=== PATIENT | male | born 1980 | race Caucasian/White ===

== ENCOUNTER 2020-12-29 22:15 | Inpatient (IN) | payer OTHER ==
[2020-12-29 22:22] LABS: Glucose,Whole Blood 226 mg/dL (75-99)
[2020-12-29 23:38] LABS: Glucose,Whole Blood 241 mg/dL (75-99)
[2020-12-29] MEDS ORDERED: SODIUM CHLORIDE 0.9% 500 ML 500 ML IV STA (23:46)
[2020-12-29] MEDS ORDERED: SODIUM CHLORIDE 0.9% 1,000 ML IV STA (23:46)
[2020-12-29] MEDS ORDERED: ONDANSETRON 4 MG/2 ML VIAL IVP STA (23:46)
[2020-12-29] MEDS ORDERED: MORPHINE SULFATE 4 MG/ML SYRINGE IV STA (23:46)
[2020-12-29] MEDS ORDERED: THIAMINE 100 MG/ML 2 ML VIAL IM ONE (23:50)
[2020-12-30 00:55] LABS: Basophils # (A) 0.1 k/uL (0-0.2); Basophils % (A) 1 %; Eosinophils # (A) 0.1 k/uL (0-0.7); Eosinophils % (A) 1 %; HCT 48.3 % (39.0-53.0); HGB 16.6 gm/dL (13.0-17.5); Lymphocytes # (A) 1.4 k/uL (1.0-4.8); Lymphocytes % (A) 27 %; MCH 32.5 pg (25.0-35.0); MCHC 34.4 g/dL (31.0-37.0); MCV 94.5 fL (80.0-100.0); Mean Platelet Volume 7.8; Monocytes # (A) 0.3 k/uL (0-1.0); Monocytes % (A) 6 %; Neutrophils # (A) 3.2 k/uL (1.3-7.7); Neutrophils % (A) 62 %; Platelet Count 341 k/uL (150-450); RBC 5.12 m/uL (4.30-5.90); RDW 12.2 % (11.5-15.5); WBC 5.2 k/uL (3.8-10.6)
[2020-12-30 01:12] LABS: Appearance,Urine Clear (Clear); Bilirubin,Urine Negative (Negative); Blood,Urine Small (Negative); Color,Urine Light Yellow; Glucose,Urine (UA) 4+ (Negative); Leukocyte Esterase,Urine Negative (Negative); Mucus,Urine Rare /hpf; Nitrite,Urine Negative (Negative); PH, Urine 5.5 (5.0-8.0); Protein,Urine 2+ (Negative); RBC,Urine 2 /hpf (0-5); Urobilinogen,Urine <2.0 mg/dL (<2.0); WBC,Urine <1 /hpf (0-5)
[2020-12-30 01:14] LABS: ALT 61 U/L (4-49); AST 76 U/L (17-59); African American GFR (CKD) >90 (>60 ml/min/1.73 sqM); Albumin 5.6 g/dL (3.5-5.0); Alkaline Phosphatase 137 U/L (38-126); Anion Gap 32 mmol/L; Blood Urea Nitrogen 10 mg/dL (9-20); Calcium 9.8 mg/dL (8.4-10.2); Chloride 97 mmol/L (98-107); Glucose 246 mg/dL (74-99); Lipase 63 U/L (23-300); Non-African American GFR(CKD) >90 (>60 ml/min/1.73 sqM); Phosphorus 3.6 mg/dL (2.5-4.5); Potassium 4.7 mmol/L (3.5-5.1); Sodium 136 mmol/L (137-145); Total Bilirubin 1.8 mg/dL (0.2-1.3); Total Protein 8.4 g/dL (6.3-8.2)
[2020-12-30 01:19] LABS: Carbon Dioxide 7 mmol/L (22-30)
[2020-12-30 01:41] LABS: Ketones,Urine 4+ (Negative)
[2020-12-30] MEDS ORDERED: SODIUM CHLORIDE 0.9% 1,000 ML IV ONE (01:41)
[2020-12-30] MEDS ORDERED: Magnesium Replacement Protocol 1 EACH MISC MISCELLANE PRN (01:41)
[2020-12-30] MEDS ORDERED: Potassium Replacement Protocol 1 EACH MISC MISCELLANE PRN (01:41)
[2020-12-30] MEDS ORDERED: INSULIN REGULAR 100 UNIT in SODIUM CHLORIDE 0.9% 100 ML IV SCH ×2 (02:00→02:30)
[2020-12-30] MEDS ORDERED: NALOXONE 0.4 MG/ML 1 ML VIAL IV PRN (02:03)
[2020-12-30] MEDS ORDERED: ONDANSETRON 4 MG/2 ML VIAL IVP PRN (02:03)
[2020-12-30 02:06] LABS: Glucose,Whole Blood 209 mg/dL (75-99)
[2020-12-30] MEDS ORDERED: LORazepam 2 MG/ML INJ IV PRN ×2 (02:06)
[2020-12-30] MEDS ORDERED: FAMOTIDINE 20 MG/2 ML VIAL IV STA (02:09)
--- NOTE | 2020-12-30 02:09 | ED ---
General Adult HPI - General Chief complaint: Abdominal Pain Stated complaint: DKA,Pancreatitis Time Seen by Provider: 12/29/20 23:30 Source: patient Mode of arrival: ambulatory Limitations: no limitations - History of Present Illness Initial comments: 40 year-old male patient chronic alcohol abuse, history of diabetes, chronic pancreatitis presents to the emergency department today for evaluation of upper abdominal pain and vomiting. States the pain is sharp, does not radiate, located in the midepigastric region. Reports several episodes of vomiting. Unable to keep down food or fluids. Last alcohol was 6-7 hours ago. States he has been binging for 2 weeks. Has not taken any insulin in 2 weeks. States he has been in DKA before and feels that he is again. Patient denies any recent rash, fever, chills, cough, shortness of breath, chest pain, diarrhea, constipation, back pain, numbness, tingling, dizziness, weakness, hematuria, dysuria, urinary urgency, urinary frequency, headache, visual changes, or any other complaints. - Related Data Allergies Allergy/AdvReac Type Severity Reaction Status Date / Time No Known Allergies Allergy Verified 12/29/20 22:19 Review of Systems ROS Statement: Those systems with pertinent positive or pertinent negative responses have been documented in the HPI. ROS Other: All systems not noted in ROS Statement are negative. Past Medical History Past Medical History: Diabetes Mellitus Additional Past Medical History / Comment(s): DKA, pancreatitis, cyst in pancrease History of Any Multi-Drug Resistant Organisms: None Reported Past Surgical History: No Surgical Hx Reported Past Psychological History: Anxiety Smoking Status: Current every day smoker Past Alcohol Use History: Daily Past Drug Use History: None Reported General Exam Limitations: no limitations General appearance: alert, in no apparent distress ENT exam: Present: normal exam, normal oropharynx, mucous membranes moist Respiratory exam: Present: normal lung sounds bilaterally. Absent: respiratory distress, wheezes, rales, rhonchi, stridor Cardiovascular Exam: Present: normal rhythm, tachycardia, normal heart sounds. Absent: systolic murmur, diastolic murmur, rubs, gallop, clicks GI/Abdominal exam: Present: soft, tenderness (midepigastric), normal bowel sounds. Absent: distended, guarding, rebound, rigid Neurological exam: Present: alert, oriented X3, CN II-XII intact Psychiatric exam: Present: normal affect, normal mood Skin exam: Present: warm, dry, intact, normal color. Absent: rash Course Vital Signs 12/29/20 12/30/20 12/30/20 22:20 00:45 03:05 Temperature 98.1 F Pulse Rate 117 H 110 H 101 H Respiratory 18 18 18 Rate Blood Pressure 139/86 128/93 133/83 O2 Sat by Pulse 98 97 99 Oximetry Medical Decision Making - Medical Decision Making 40-year-old male patient with past medical history significant for alcohol abuse, diabetes, chronic pancreatitis presents to the emergency department today reporting abdominal pain and vomiting started today. Patient states that he has not taken insulin in the last 2 weeks. Physical examination did reveal midepigastric tenderness. Labs reviewed and revealed normal white blood cell count. Sodium is 136, chloride 97, carbon dioxide 7, anion gap is 32. Blood sugar is 246. His liver enzymes are mildly elevated, bilirubin is 1.8. Urine shows 2+ protein, 4+ glucose, 4+ ketones. Patient is given normal saline fluid bolus. We will start D5 4 5 infusion per protocol. We started on insulin drip. He'll be admitted to the hospital for further evaluation and monitoring. Dr. Crandall requests placement in the ICU. Patient is agreeable with this plan. Case discussed with my attending Dr. Burgess. - Lab Data Result diagrams: 12/30/20 00:25 12/30/20 00:25 Lab Results 12/29/20 12/29/20 12/30/20 Range/Units 22:20 23:37 00:25 WBC 5.2 (3.8-10.6) k/uL RBC 5.12 (4.30-5.90) m/uL Hgb 16.6 (13.0-17.5) gm/dL Hct 48.3 (39.0-53.0) % MCV 94.5 (80.0-100.0) fL MCH 32.5 (25.0-35.0) pg MCHC 34.4 (31.0-37.0) g/dL RDW 12.2 (11.5-15.5) % Plt Count 341 (150-450) k/uL MPV 7.8 Neutrophils % 62 % Lymphocytes % 27 % Monocytes % 6 % Eosinophils % 1 % Basophils % 1 % Neutrophils # 3.2 (1.3-7.7) k/uL Lymphocytes # 1.4 (1.0-4.8) k/uL Monocytes # 0.3 (0-1.0) k/uL Eosinophils # 0.1 (0-0.7) k/uL Basophils # 0.1 (0-0.2) k/uL Sodium (137-145) mmol/L Potassium (3.5-5.1) mmol/L Chloride (98-107) mmol/L Carbon Dioxide (22-30) mmol/L Anion Gap mmol/L BUN (9-20) mg/dL Creatinine (0.66-1.25) mg/dL Est GFR (CKD-EPI)AfAm (>60 ml/min/1.73 sqM) Est GFR (CKD-EPI)NonAf (>60 ml/min/1.73 sqM) Glucose (74-99) mg/dL POC Glucose (mg/dL) 226 H 241 H (75-99) mg/dL POC Glu Social Work Nurse Katherine Farfan Pauline Plasma Lactic Acid Bruno (0.7-2.0) mmol/L Calcium (8.4-10.2) mg/dL Phosphorus (2.5-4.5) mg/dL Total Bilirubin (0.2-1.3) mg/dL AST (17-59) U/L ALT (4-49) U/L Alkaline Phosphatase (38-126) U/L Total Protein (6.3-8.2) g/dL Albumin (3.5-5.0) g/dL Lipase (23-300) U/L Urine Color Urine Appearance (Clear) Urine pH (5.0-8.0) Ur Specific [place] (1.001-1.035) Urine Protein (Negative) Urine Glucose (UA) (Negative) Urine Ketones (Negative) Urine Blood (Negative) Urine Nitrite (Negative) Urine Bilirubin (Negative) Urine Urobilinogen (<2.0) mg/dL Ur Leukocyte Esterase (Negative) Urine RBC (0-5) /hpf Urine WBC (0-5) /hpf Urine Mucus (None) /hpf Serum Alcohol mg/dL Acetone, Qual (Negative) 12/30/20 12/30/20 12/30/20 Range/Units 00:25 00:25 00:25 WBC (3.8-10.6) k/uL RBC (4.30-5.90) m/uL Hgb (13.0-17.5) gm/dL Hct (39.0-53.0) % MCV (80.0-100.0) fL MCH (25.0-35.0) pg MCHC (31.0-37.0) g/dL RDW (11.5-15.5) % Plt Count (150-450) k/uL MPV Neutrophils % % Lymphocytes % % Monocytes % % Eosinophils % % Basophils % % Neutrophils # (1.3-7.7) k/uL Lymphocytes # (1.0-4.8) k/uL Monocytes # (0-1.0) k/uL Eosinophils # (0-0.7) k/uL Basophils # (0-0.2) k/uL Sodium 136 L (137-145) mmol/L Potassium 4.7 (3.5-5.1) mmol/L Chloride 97 L (98-107) mmol/L Carbon Dioxide 7 L* (22-30) mmol/L Anion Gap 32 mmol/L BUN 10 (9-20) mg/dL Creatinine 0.91 (0.66-1.25) mg/dL Est GFR (CKD-EPI)AfAm >90 (>60 ml/min/1.73 sqM) Est GFR (CKD-EPI)NonAf >90 (>60 ml/min/1.73 sqM) Glucose 246 H (74-99) mg/dL POC Glucose (mg/dL) (75-99) mg/dL POC Glu Social Work Nurse ID Plasma Lactic Acid Bruno 4.6 H* (0.7-2.0) mmol/L Calcium 9.8 (8.4-10.2) mg/dL Phosphorus 3.6 (2.5-4.5) mg/dL Total Bilirubin 1.8 H (0.2-1.3) mg/dL AST 76 H (17-59) U/L ALT 61 H (4-49) U/L Alkaline Phosphatase 137 H (38-126) U/L Total Protein 8.4 H (6.3-8.2) g/dL Albumin 5.6 H (3.5-5.0) g/dL Lipase 63 (23-300) U/L Urine Color Light Yellow Urine Appearance Clear (Clear) Urine pH 5.5 (5.0-8.0) Ur Specific [place] 1.020 (1.001-1.035) Urine Protein 2+ H (Negative) Urine Glucose (UA) 4+ H (Negative) Urine Ketones 4+ H (Negative) Urine Blood Small H (Negative) Urine Nitrite Negative (Negative) Urine Bilirubin Negative (Negative) Urine Urobilinogen <2.0 (<2.0) mg/dL Ur Leukocyte Esterase Negative (Negative) Urine RBC 2 (0-5) /hpf Urine WBC <1 (0-5) /hpf Urine Mucus Rare H (None) /hpf Serum Alcohol mg/dL Acetone, Qual Positive (Negative) 12/30/20 Range/Units 01:33 WBC (3.8-10.6) k/uL RBC (4.30-5.90) m/uL Hgb (13.0-17.5) gm/dL Hct (39.0-53.0) % MCV (80.0-100.0) fL MCH (25.0-35.0) pg MCHC (31.0-37.0) g/dL RDW (11.5-15.5) % Plt Count (150-450) k/uL MPV Neutrophils % % Lymphocytes % % Monocytes % % Eosinophils % % Basophils % % Neutrophils # (1.3-7.7) k/uL Lymphocytes # (1.0-4.8) k/uL Monocytes # (0-1.0) k/uL Eosinophils # (0-0.7) k/uL Basophils # (0-0.2) k/uL Sodium (137-145) mmol/L Potassium (3.5-5.1) mmol/L Chloride (98-107) mmol/L Carbon Dioxide (22-30) mmol/L Anion Gap mmol/L BUN (9-20) mg/dL Creatinine (0.66-1.25) mg/dL Est GFR (CKD-EPI)AfAm (>60 ml/min/1.73 sqM) Est GFR (CKD-EPI)NonAf (>60 ml/min/1.73 sqM) Glucose (74-99) mg/dL POC Glucose (mg/dL) (75-99) mg/dL POC Glu Social Work Nurse ID Plasma Lactic Acid Bruno (0.7-2.0) mmol/L Calcium (8.4-10.2) mg/dL Phosphorus (2.5-4.5) mg/dL Total Bilirubin (0.2-1.3) mg/dL AST (17-59) U/L ALT (4-49) U/L Alkaline Phosphatase (38-126) U/L Total Protein (6.3-8.2) g/dL Albumin (3.5-5.0) g/dL Lipase (23-300) U/L Urine Color Urine Appearance (Clear) Urine pH (5.0-8.0) Ur Specific [place] (1.001-1.035) Urine Protein (Negative) Urine Glucose (UA) (Negative) Urine Ketones (Negative) Urine Blood (Negative) Urine Nitrite (Negative) Urine Bilirubin (Negative) Urine Urobilinogen (<2.0) mg/dL Ur Leukocyte Esterase (Negative) Urine RBC (0-5) /hpf Urine WBC (0-5) /hpf Urine Mucus (None) /hpf Serum Alcohol 64 mg/dL Acetone, Qual (Negative) - EKG Data -: EKG Interpreted by Me EKG Comments: EKG obtained at 02 100 shows sinus rhythm with a short [place] interval. Ventricular rate is 100, [place] interval is 110, QRS duration 94, QT 372, QTc 479. No evidence of ST elevation or depression. Disposition Clinical Impression: DKA (diabetic ketoacidoses), Abdominal pain Disposition: ADMITTED IP TO THIS [facility] Condition: Serious Decision to Admit Reason: Admit from EC
[2020-12-30] MEDS: D5-0.45% NACL WITH KCL 20MEQ/L 1,000 ML IV SCH ×4 (02:47→23:38)
[2020-12-30 04:00] LABS: Glucose,Whole Blood 227 mg/dL (75-99)
[2020-12-30] MEDS: MORPHINE SULFATE 4 MG/ML SYRINGE IV PRN ×3 (04:44→16:20)
--- NOTE | 2020-12-30 04:54 | P.HPIM ---
History of Present Illness H&P Date: 12/30/20 Patient is a 40-year-old male with a PMH of diabetes (mixed type), chronic pancreatitis, and EtOH abuse who presented to the emergency room with complaints of abdominal pain, nausea, and vomiting. The patient notes that his pain started earlier today, is sharp in nature, epigastric, 7 out of 10 at maximal intensity, worsened with food, with no clear alleviating features. Reported that the pain had improved to a 3 out of 10 at the time of the interview. The patient reports that he had started to drink heavily over the past few weeks, drinking half a gallon of vodka daily. His last drink was 6 hours prior to coming into the emergency room. He reports he has been admitted to multiple hospitals in the past for his alcohol intoxication and has a history of delirium tremens requiring ICU stay with Ativan infusions. He also reports a history of DKA's. He reported feeling somewhat better since coming into the emergency room. He denied chest pain, shortness of breath, diarrhea, fever, chills, cough, headaches, or dizziness. He underwent an extensive evaluation in the emergency room with EKG showing sinus rhythm with short MT [address]/T-wave changes noted as reviewed by me. Laboratory evaluation was remarkable for a sodium 136, chloride 97, CO2 17, anion gap 32, glucose 246, lactic acid 4.6, total bilirubin 1.8, AST 76, ALT 61, alk phos 137, alcohol level 64, urine keto isidro 4+, with serum acetone positive. Patient was started on insulin infusion along with IV fluids and is being admitted for management of DKA. Review of Systems Pertinent positives and negatives as discussed in HPI, a complete review of systems was performed and all other systems are negative. Past Medical History Past Medical History: Diabetes Mellitus Additional Past Medical History / Comment(s): DKA, pancreatitis, cyst in pancrease History of Any Multi-Drug Resistant Organisms: None Reported Past Surgical History: No Surgical Hx Reported Past Psychological History: Anxiety Smoking Status: Current every day smoker Past Alcohol Use History: Daily Past Drug Use History: None Reported Medications and Allergies Allergies Allergy/AdvReac Type Severity Reaction Status Date / Time No Known Allergies Allergy Verified 12/29/20 22:19 Physical Exam Vitals: Vital Signs Temp Pulse Resp BP Pulse Ox 12/30/20 03:05 101 H 18 133/83 99 12/30/20 00:45 110 H 18 128/93 97 12/29/20 22:20 98.1 F 117 H 18 139/86 98 Intake and Output 12/29/20 12/29/20 12/30/20 14:59 22:59 06:59 Other: Weight 77.111 kg General: non toxic, no distress, appears at stated age, normal weight Derm: no unusual rashes/lesions no unusual ecchymoses, warm, dry Head: atraumatic, normocephalic, symmetric Eyes: EOMI, no lid lag, anicteric sclera, pupils equal round reactive to light ENT: Nose and ears atraumatic, no thrush, no pharyngeal erythema Neck: No thyromegaly, no cervical lymphadenopathy, trachea midline, supple Mouth: no lip lesion, mucus membranes moist Cardiovascular: S1S2 reg, no murmur, positive posterior tibial pulse bilateral, no edema, capillary refill less than 2 seconds Lungs: CTA bilateral, no rhonchi, no rales , no accessory muscle use Abdominal: soft, epigastric tenderness, no guarding, no appreciable organomegaly, normal bowel sounds Ext: no gross muscle atrophy, muscle strength 5 out of 5 in all 4 extremities grossly, no contractures, Neuro: CN II-XI grossly intact, light touch intact all 4 extremities, finger to nose within normal limits, Psych: Alert, oriented, appropriate affect Results CBC & Chem 7: 12/30/20 00:25 12/30/20 00:25 Labs: Abnormal Lab Results - Last 24 Hours (Table) 12/29/20 12/29/20 12/30/20 Range/Units 22:20 23:37 00:25 Sodium (137-145) mmol/L Chloride (98-107) mmol/L Carbon Dioxide (22-30) mmol/L Glucose (74-99) mg/dL POC Glucose (mg/dL) 226 H 241 H (75-99) mg/dL Plasma Lactic Acid Bruno (0.7-2.0) mmol/L Total Bilirubin (0.2-1.3) mg/dL AST (17-59) U/L ALT (4-49) U/L Alkaline Phosphatase (38-126) U/L Total Protein (6.3-8.2) g/dL Albumin (3.5-5.0) g/dL Urine Protein 2+ H (Negative) Urine Glucose (UA) 4+ H (Negative) Urine Ketones 4+ H (Negative) Urine Blood Small H (Negative) Urine Mucus Rare H (None) /hpf 12/30/20 12/30/20 12/30/20 Range/Units 00:25 00:25 02:03 Sodium 136 L (137-145) mmol/L Chloride 97 L (98-107) mmol/L Carbon Dioxide 7 L* (22-30) mmol/L Glucose 246 H (74-99) mg/dL POC Glucose (mg/dL) 209 H (75-99) mg/dL Plasma Lactic Acid Bruno 4.6 H* (0.7-2.0) mmol/L Total Bilirubin 1.8 H (0.2-1.3) mg/dL AST 76 H (17-59) U/L ALT 61 H (4-49) U/L Alkaline Phosphatase 137 H (38-126) U/L Total Protein 8.4 H (6.3-8.2) g/dL Albumin 5.6 H (3.5-5.0) g/dL Urine Protein (Negative) Urine Glucose (UA) (Negative) Urine Ketones (Negative) Urine Blood (Negative) Urine Mucus (None) /hpf 12/30/20 Range/Units 03:59 Sodium (137-145) mmol/L Chloride (98-107) mmol/L Carbon Dioxide (22-30) mmol/L Glucose (74-99) mg/dL POC Glucose (mg/dL) 227 H (75-99) mg/dL Plasma Lactic Acid Bruno (0.7-2.0) mmol/L Total Bilirubin (0.2-1.3) mg/dL AST (17-59) U/L ALT (4-49) U/L Alkaline Phosphatase (38-126) U/L Total Protein (6.3-8.2) g/dL Albumin (3.5-5.0) g/dL Urine Protein (Negative) Urine Glucose (UA) (Negative) Urine Ketones (Negative) Urine Blood (Negative) Urine Mucus (None) /hpf Assessment and Plan Plan: Diabetic ketoacidosis -Continue with insulin infusion with D5 half and is -Continue to monitor blood glucose every 1-2 hours -Monitor electrolytes every 4 hourly -Nothing by mouth for now Alcohol abuse, impending withdrawal -Continue with thiamine and multivitamin -CIWA protocol -Strongly advised on the importance of cessation Lactic acidosis -Monitor to resolution -Continue with IV fluids DVT prophylaxis -Heparin subq The patient is admitted with an anticipated greater than 2 midnight stay for evaluation of DKA CODE STATUS: Full Code Discussed with: Patient Anticipated discharge date: 2-[address]: Home A total of 40 minutes was spent on the care of this complex patient more than 50% of the time was spent in counseling and care coordination.
[2020-12-30 05:06] LABS: African American GFR (CKD) >90 (>60 ml/min/1.73 sqM); Anion Gap 19 mmol/L; Blood Urea Nitrogen 9 mg/dL (9-20); Carbon Dioxide 13 mmol/L (22-30); Chloride 101 mmol/L (98-107); Glucose 218 mg/dL (74-99); Non-African American GFR(CKD) >90 (>60 ml/min/1.73 sqM); Phosphorus 2.1 mg/dL (2.5-4.5); Potassium 4.5 mmol/L (3.5-5.1); Sodium 133 mmol/L (137-145)
[2020-12-30 05:13] LABS: Glucose,Whole Blood 215 mg/dL (75-99)
[2020-12-30 06:13] LABS: Glucose,Whole Blood 211 mg/dL (75-99)
[2020-12-30 07:28] LABS: Glucose,Whole Blood 207 mg/dL (75-99)
[2020-12-30] MEDS: LORazepam 2 MG/ML INJ IV PRN ×3 (07:58→23:33)
[2020-12-30] MEDS: MULTIVITAMINS, THERA 1 EACH TAB PO SCH (07:58)
[2020-12-30 08:55] LABS: African American GFR (CKD) >90 (>60 ml/min/1.73 sqM); Anion Gap 14 mmol/L; Blood Urea Nitrogen 10 mg/dL (9-20); Carbon Dioxide 18 mmol/L (22-30); Chloride 101 mmol/L (98-107); Glucose 263 mg/dL (74-99); Non-African American GFR(CKD) >90 (>60 ml/min/1.73 sqM); Phosphorus 1.6 mg/dL (2.5-4.5); Potassium 4.7 mmol/L (3.5-5.1); Sodium 133 mmol/L (137-145)
[2020-12-30] MEDS: FAMOTIDINE 20 MG/2 ML VIAL IV SCH (10:11)
[2020-12-30] MEDS: HEPARIN SODIUM,PORCINE/PF 5,000 UNIT/0.5 ML SYRINGE SQ SCH ×2 (10:11→16:18)
--- NOTE | 2020-12-30 10:55 | P.CNPUL ---
History of Present Illness Consult date: 12/30/20 Requesting physician: Laurita Crandall Reason for consult: other (Acute diabetic ketoacidosis) Chief complaint: Abdominal pain and nausea and vomiting History of present illness: This is a 40-year-old white male with history of type 1 diabetes, chronic pancreatitis, alcohol abuse, presented to the ER with 1 day history of abdominal pain and nausea and vomiting. Pain was worse after eating, and no clear alleviating factors. Patient has been very noncompliant with his insulin has been drinking almost half abdominal vodka on a daily basis. He even had a drink just before he came into the ER. Patient had previous history of alcohol withdrawal/delirium tremens requiring ICU stay and Ativan infusions. He also had multiple episodes of DKA in the past. In the ER, patient was noted to have elevated blood sugar, positive ketones, and anion gap metabolic acidosis consistent with acute DKA. Patient was placed on the DKA protocol. He was accepted to be transferred to the ICU, however beds were not available overnight, and patient remained in the ER on the DKA protocol. I evaluated the patient this morning, and his labs are significantly improved. Patient has anion gap of 14, bicarb is 18, blood sugar is 263, remains on 40 units of insulin, and he is on the DKA protocol. He is also on [facility] protocol for alcohol withdrawal. During my evaluation, the patient had no complaints. No shortness of breath no cough no wheezing no nausea no vomiting no abdominal pain. COVID- 19 PCR was negative after evaluating the patient in the ER, I felt that the patient could be downgraded and sent to a regular medical floor. 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 Review of Systems Constitutional: Negative HEENT: Negative Pulmonary: Negative GI: As noted in HPI Genitourinary: Negative Musculoskeletal: Negative Endocrine history of diabetes noncompliant with insulin Hematologic: Negative Neurologic: Negative Psychiatric history of alcohol abuse Skin: Negative Past Medical History Past Medical History: Diabetes Mellitus Additional Past Medical History / Comment(s): DKA, pancreatitis, cyst in pancrease History of Any Multi-Drug Resistant Organisms: None Reported Past Surgical History: No Surgical Hx Reported Past Psychological History: Anxiety Smoking Status: Current every day smoker Past Alcohol Use History: Daily Past Drug Use History: None Reported Medications and Allergies Home Medications Medication Instructions Recorded Confirmed Type ALPRAZolam [Xanax] 1 mg PO HS PRN 12/30/20 12/30/20 History INSULIN LISPRO (HumaLOG) [humaLOG] See Protocol SQ AC-TID 12/30/20 12/30/20 History Insulin Glargine,Hum.rec.anlog 20 unit SQ W/LUNCH 12/30/20 12/30/20 History [Lantus Solostar] Pantoprazole Sodium [Protonix] 40 mg PO DAILY 12/30/20 12/30/20 History traZODone HCL 50 mg PO HS 12/30/20 12/30/20 History Allergies Allergy/AdvReac Type Severity Reaction Status Date / Time No Known Allergies Allergy Verified 12/30/20 07:17 Physical Exam Vitals: Vital Signs Temp Pulse Resp BP Pulse Ox 12/30/20 08:00 105 H 18 124/86 98 12/30/20 05:13 98 16 126/81 98 12/30/20 03:05 101 H 18 133/83 99 12/30/20 00:45 110 H 18 128/93 97 12/29/20 22:20 98.1 F 117 H 18 139/86 98 Intake and Output 12/29/20 12/30/20 12/30/20 22:59 06:59 14:59 Intake Total 23.129 Balance 23.129 Intake: Intake, IV Titration 23.129 Amount Insulin Regular 100 unit 23.129 In Sodium Chloride 0.9% 100 ml @ 3 UNIT/HR 3.03 mls/hr IV .Q24H [facility] Rx#: [id number] Other: Weight 77.111 kg Physical Exam: Revealed 40-year-old white male in no distress. Head: Atraumatic, normocephalic. HEENT:[Neck is supple.] [No neck masses.] [No thyromegaly.] [No JVD.] Chest: [Clear throughout, no crackles, no rhonchi, no wheezes.] Cardiac Exam: [Normal S1 and S2, no S3 gallop, no murmur.] Abdomen: [Soft, nontender, no megaly, no rebound, no guarding, normal bowel sounds.] Extremities: [No clubbing, no edema, no cyanosis.] Neurological Exam: [No focal neurologic deficit.] Alert and oriented 3 focal deficit Psychiatric: Normal mood affect and normal mental status examination. Skin: No rashes. Results - Laboratory Findings CBC and BMP: 12/30/20 00:25 12/30/20 08:03 Abnormal lab findings: Abnormal Labs 12/29/20 12/29/20 12/30/20 22:20 23:37 00:25 Sodium Chloride Carbon Dioxide Creatinine Glucose POC Glucose (mg/dL) 226 H 241 H Plasma Lactic Acid Bruno Phosphorus Total Bilirubin AST ALT Alkaline Phosphatase Total Protein Albumin Urine Protein 2+ H Urine Glucose (UA) 4+ H Urine Ketones 4+ H Urine Blood Small H Urine Mucus Rare H 12/30/20 12/30/20 12/30/20 00:25 00:25 02:03 Sodium 136 L Chloride 97 L Carbon Dioxide 7 L* Creatinine Glucose 246 H POC Glucose (mg/dL) 209 H Plasma Lactic Acid Bruno 4.6 H* Phosphorus Total Bilirubin 1.8 H AST 76 H ALT 61 H Alkaline Phosphatase 137 H Total Protein 8.4 H Albumin 5.6 H Urine Protein Urine Glucose (UA) Urine Ketones Urine Blood Urine Mucus 12/30/20 12/30/20 12/30/20 03:59 04:26 05:11 Sodium 133 L Chloride Carbon Dioxide 13 L Creatinine Glucose 218 H POC Glucose (mg/dL) 227 H 215 H Plasma Lactic Acid Bruno Phosphorus 2.1 L Total Bilirubin AST ALT Alkaline Phosphatase Total Protein Albumin Urine Protein Urine Glucose (UA) Urine Ketones Urine Blood Urine Mucus 12/30/20 12/30/20 12/30/20 06:11 07:27 08:03 Sodium 133 L Chloride Carbon Dioxide 18 L Creatinine 0.65 L Glucose 263 H POC Glucose (mg/dL) 211 H 207 H Plasma Lactic Acid Bruno Phosphorus 1.6 L Total Bilirubin AST ALT Alkaline Phosphatase Total Protein Albumin Urine Protein Urine Glucose (UA) Urine Ketones Urine Blood Urine Mucus Assessment and Plan Assessment: Impression: Acute diabetic ketoacidosis History of colon abuse and previous history of delirium tremens Anion gap metabolic acidosis secondary to DKA. History of pancreatitis related to alcohol abuse. Recommendation: Continue present supportive care measures Continue DKA protocol. Continue automotive sales professional withdrawal protocol. No need to transfer the patient to the ICU at this point. Hence we will arrange for the patient to be transferred to a regular medical floor. Continue GI and DVT prophylaxis. We will continue to follow. Time with Patient: Greater than 30
[2020-12-30 11:19] LABS: Glucose,Whole Blood 187 mg/dL (75-99)
[2020-12-30] MEDS: POTAS-SOD-PHOS 278-164-250 MG 1 EACH PACKET PO SCH ×3 (12:06→23:37)
[2020-12-30 12:44] LABS: Glucose,Whole Blood 156 mg/dL (75-99)
[2020-12-30 14:41] LABS: ALT 75 U/L (4-49); AST 125 U/L (17-59); African American GFR (CKD) >90 (>60 ml/min/1.73 sqM); Albumin 4.3 g/dL (3.5-5.0); Alkaline Phosphatase 92 U/L (38-126); Anion Gap 11 mmol/L; Blood Urea Nitrogen 10 mg/dL (9-20); Calcium 9.5 mg/dL (8.4-10.2); Carbon Dioxide 22 mmol/L (22-30); Chloride 101 mmol/L (98-107); Glucose 215 mg/dL (74-99); Magnesium 1.5 mg/dL (1.6-2.3); Non-African American GFR(CKD) >90 (>60 ml/min/1.73 sqM); Potassium 4.3 mmol/L (3.5-5.1); Sodium 134 mmol/L (137-145); Total Bilirubin 3.3 mg/dL (0.2-1.3); Total Protein 6.4 g/dL (6.3-8.2)
[2020-12-30] MEDS: MAGNESIUM SULFATE-D5W PMX 1 GM in DEXTROSE/WATER 1 100ML.BAG IVPB SCH ×2 (16:04→17:35)
[2020-12-30 16:22] LABS: Glucose,Whole Blood 182 mg/dL (75-99)
[2020-12-30 17:38] LABS: Glucose,Whole Blood 134 mg/dL (75-99)
[2020-12-30] MEDS: THIAMINE 100 MG TAB PO SCH (18:43)
[2020-12-30 18:46] LABS: ALT 84 U/L (4-49); AST 139 U/L (17-59); African American GFR (CKD) >90 (>60 ml/min/1.73 sqM); Albumin 4.5 g/dL (3.5-5.0); Alkaline Phosphatase 100 U/L (38-126); Anion Gap 11 mmol/L; Blood Urea Nitrogen 10 mg/dL (9-20); Calcium 9.8 mg/dL (8.4-10.2); Carbon Dioxide 24 mmol/L (22-30); Chloride 100 mmol/L (98-107); Glucose 195 mg/dL (74-99); Non-African American GFR(CKD) >90 (>60 ml/min/1.73 sqM); Potassium 4.1 mmol/L (3.5-5.1); Sodium 135 mmol/L (137-145); Total Bilirubin 3.9 mg/dL (0.2-1.3); Total Protein 6.7 g/dL (6.3-8.2)
[2020-12-30 18:58] LABS: Glucose,Whole Blood 255 mg/dL (75-99)
[2020-12-30 20:17] LABS: Glucose,Whole Blood 369 mg/dL (75-99)
[2020-12-30 21:33] LABS: Glucose,Whole Blood 364 mg/dL (75-99)
[2020-12-30 22:32] LABS: Glucose,Whole Blood 298 mg/dL (75-99)
[2020-12-30 23:31] LABS: Glucose,Whole Blood 196 mg/dL (75-99)
[2020-12-30] MEDS: SODIUM CHLORIDE 0.9% 1,000 ML IV SCH (23:35)
[2020-12-31] MEDS: HEPARIN SODIUM,PORCINE/PF 5,000 UNIT/0.5 ML SYRINGE SQ SCH ×4 (00:24→23:06)
[2020-12-31] MEDS: INSULIN DETEMIR (LEVEMIR) 100 UNIT/ML SYR SQ SCH ×2 (00:24→20:50)
[2020-12-31] MEDS: MORPHINE SULFATE 4 MG/ML SYRINGE IV PRN ×4 (00:28→20:46)
[2020-12-31 07:01] LABS: Glucose,Whole Blood 244 mg/dL (75-99)
[2020-12-31] MEDS: LORazepam 2 MG/ML INJ IV PRN ×4 (07:24→22:57)
[2020-12-31] MEDS: MULTIVITAMINS, THERA 1 EACH TAB PO SCH (07:26)
[2020-12-31] MEDS: INSULIN ASPART (NovoLOG) 100 UNIT/ML VIAL SQ SCH ×4 (07:26→20:50)
[2020-12-31] MEDS: POTAS-SOD-PHOS 278-164-250 MG 1 EACH PACKET PO SCH ×3 (07:26→20:50)
[2020-12-31] MEDS: FAMOTIDINE 20 MG/2 ML VIAL IV SCH (07:26)
[2020-12-31] MEDS: THIAMINE 100 MG TAB PO SCH ×2 (07:26→17:01)
[2020-12-31] MEDS: SODIUM CHLORIDE 0.9% 1,000 ML IV SCH ×3 (07:32→23:07)
[2020-12-31 07:49] LABS: African American GFR (CKD) >90 (>60 ml/min/1.73 sqM); Anion Gap 10 mmol/L; Blood Urea Nitrogen 9 mg/dL (9-20); Calcium 9.1 mg/dL (8.4-10.2); Carbon Dioxide 27 mmol/L (22-30); Chloride 99 mmol/L (98-107); Glucose 266 mg/dL (74-99); Non-African American GFR(CKD) >90 (>60 ml/min/1.73 sqM); Potassium 4.2 mmol/L (3.5-5.1); Sodium 136 mmol/L (137-145)
[2020-12-31 08:53] LABS: Basophils % (A) 1 %; Eosinophils # (A) 0.1 k/uL (0-0.7); Eosinophils % (A) 2 %; HCT 39.7 % (39.0-53.0); Lymphocytes # (A) 0.8 k/uL (1.0-4.8); Lymphocytes % (A) 23 %; MCH 32.7 pg (25.0-35.0); MCHC 34.2 g/dL (31.0-37.0); MCV 95.6 fL (80.0-100.0); Mean Platelet Volume 8.3; Monocytes # (A) 0.2 k/uL (0-1.0); Monocytes % (A) 5 %; Neutrophils # (A) 2.4 k/uL (1.3-7.7); Neutrophils % (A) 68 %; Platelet Count 193 k/uL (150-450); RBC 4.16 m/uL (4.30-5.90); RDW 12.3 % (11.5-15.5); WBC 3.6 k/uL (3.8-10.6)
[2020-12-31 08:55] LABS: HGB 13.6 gm/dL (13.0-17.5)
[2020-12-31 12:04] LABS: Glucose,Whole Blood 268 mg/dL (75-99)
[2020-12-31 13:09] VITALS: BMI 24.3
--- NOTE | 2020-12-31 14:12 | P.PN ---
Subjective Progress Note Date: 12/31/20 Principal diagnosis: abdominal pain and nausea and vomiting This is a 40-year-old white male with history of type 1 diabetes, chronic pancreatitis, alcohol abuse, presented to the ER with 1 day history of abdominal pain and nausea and vomiting. Pain was worse after eating, and no clear alleviating factors. Patient has been very noncompliant with his insulin has been drinking almost half abdominal vodka on a daily basis. He even had a drink just before he came into the ER. Patient had previous history of alcohol withdrawal/delirium tremens requiring ICU stay and Ativan infusions. He also had multiple episodes of DKA in the past. In the ER, patient was noted to have elevated blood sugar, positive ketones, and anion gap metabolic acidosis consistent with acute DKA. Patient was placed on the DKA protocol. He was accepted to be transferred to the ICU, however beds were not available overnight, and patient remained in the ER on the DKA protocol. I evaluated the patient this morning, and his labs are significantly improved. Patient has anion gap of 14, bicarb is 18, blood sugar is 263, remains on 40 units of insulin, and he is on the DKA protocol. He is also on [facility] protocol for alcohol withdrawal. During my evaluation, the patient had no complaints. No shortness of breath no cough no wheezing no nausea no vomiting no abdominal pain. COVID- 19 PCR was negative after evaluating the patient in the ER, I felt that the patient could be downgraded and sent to a regular medical floor. And continue the DKA protocol, and continued [employer] consultant withdrawal protocol. On 12/31/2020 patient is seen in follow-up on medical surgical floor, he is awake and alert, in no acute distress, he is ambulating about the room, appears to be no acute distress, breathing comfortably, vital signs are stable, he is on room air, pulse ox is 97%, no fever or chills, blood pressure is been stable, no specific complaints, no tremors, no confusion, no agitation, no headaches. Tolerating oral intake, no nausea or vomiting, today's labs have been reviewed, his anion gap is at 10, CO2 is 27, sodium is 136, BUN is 9 creatinine 0.6, his phosphorus level is 2.0, white blood cell count of 3.6, hemoglobin 13.6, patient has been transitioned to insulin injections and basal insulin in the form of Levemir at 20 units at bedtime. Objective - Vital Signs Vital signs: Vital Signs Temp 98.5 F 12/31/20 14:00 Pulse 98 12/31/20 14:00 Resp 16 12/31/20 14:00 BP 137/80 12/31/20 14:00 Pulse Ox 97 12/31/20 14:00 Intake & Output 12/30/20 12/31/20 12/31/20 18:59 06:59 18:59 Intake Total 49.339 5.202 Balance 49.339 5.202 Weight 77.111 kg 77.111 kg Intake: Intake, IV Titration 49.339 5.202 Amount Insulin Regular 100 unit 49.339 5.202 In Sodium Chloride 0.9% 100 ml @ 3 UNIT/HR 3.03 mls/hr IV .Q24H [facility] Rx#: [id number] Other: Voiding Method Toilet # Voids 2 - Exam GENERAL EXAM: Alert, very pleasant, 32-year-old white male, on room air, with a pulse ox of 97% comfortable in no apparent distress. HEAD: Normocephalic/atraumatic. EYES: Normal reaction of pupils, equal size. Conjunctiva pink, sclera white. NOSE: Clear with pink turbinates. THROAT: No erythema or exudates. NECK: No masses, no JVD, no thyroid enlargement, no adenopathy. CHEST: No chest wall deformity. Symmetrical expansion. LUNGS: Equal air entry with no crackles, wheeze, rhonchi or dullness. CVS: Regular rate and rhythm, normal S1 and S2, no gallops, no murmurs, no rubs ABDOMEN: Soft, nontender. No hepatosplenomegaly, normal bowel sounds, no guarding or rigidity. EXTREMITIES: No clubbing, no edema, no cyanosis, 2+ pulses and upper and lower extremities. MUSCULOSKELETAL: Muscle strength and tone normal. SPINE: No scoliosis or deformity SKIN: No rashes CENTRAL NERVOUS SYSTEM: Alert and oriented -3. No focal deficits, tone is normal in all 4 extremities. PSYCHIATRIC: Alert and oriented -3. Appropriate affect. Intact judgment and insight. - Labs CBC & Chem 7: 12/31/20 05:37 12/31/20 05:37 Labs: Abnormal Lab Results - Last 24 Hours (Table) 12/30/20 12/30/2012/30/21 Range/Units 14:07 16:20 17:37 WBC (3.8-10.6) k/uL RBC (4.30-5.90) m/uL Lymphocytes # (1.0-4.8) k/uL Sodium 134 L (137-145) mmol/L Creatinine 0.58 L (0.66-1.25) mg/dL Glucose 215 H (74-99) mg/dL POC Glucose (mg/dL) 182 H 134 H (75-99) mg/dL Phosphorus (2.5-4.5) mg/dL Magnesium 1.5 L (1.6-2.3) mg/dL Total Bilirubin 3.3 H (0.2-1.3) mg/dL AST 125 H (17-59) U/L ALT 75 H (4-49) U/L 12/30/20 12/30/20 12/30/20 Range/Units 17:59 18:57 20:11 WBC (3.8-10.6) k/uL RBC (4.30-5.90) m/uL Lymphocytes # (1.0-4.8) k/uL Sodium 135 L (137-145) mmol/L Creatinine 0.55 L (0.66-1.25) mg/dL Glucose 195 H (74-99) mg/dL POC Glucose (mg/dL) 255 H 369 H (75-99) mg/dL Phosphorus (2.5-4.5) mg/dL Magnesium (1.6-2.3) mg/dL Total Bilirubin 3.9 H (0.2-1.3) mg/dL AST 139 H (17-59) U/L ALT 84 H (4-49) U/L 12/30/20 12/30/20 12/30/20 Range/Units 21:22 22:30 23:28 WBC (3.8-10.6) k/uL RBC (4.30-5.90) m/uL Lymphocytes # (1.0-4.8) k/uL Sodium (137-145) mmol/L Creatinine (0.66-1.25) mg/dL Glucose (74-99) mg/dL POC Glucose (mg/dL) 364 H 298 H 196 H (75-99) mg/dL Phosphorus (2.5-4.5) mg/dL Magnesium (1.6-2.3) mg/dL Total Bilirubin (0.2-1.3) mg/dL AST (17-59) U/L ALT (4-49) U/L 12/31/20 12/31/20 12/31/20 Range/Units 05:37 05:37 06:58 WBC 3.6 L (3.8-10.6) k/uL RBC 4.16 L (4.30-5.90) m/uL Lymphocytes # 0.8 L (1.0-4.8) k/uL Sodium 136 L (137-145) mmol/L Creatinine (0.66-1.25) mg/dL Glucose 266 H (74-99) mg/dL POC Glucose (mg/dL) 244 H (75-99) mg/dL Phosphorus 2.0 L (2.5-4.5) mg/dL Magnesium (1.6-2.3) mg/dL Total Bilirubin (0.2-1.3) mg/dL AST (17-59) U/L ALT (4-49) U/L 12/31/20 Range/Units 12:02 WBC (3.8-10.6) k/uL RBC (4.30-5.90) m/uL Lymphocytes # (1.0-4.8) k/uL Sodium (137-145) mmol/L Creatinine (0.66-1.25) mg/dL Glucose (74-99) mg/dL POC Glucose (mg/dL) 268 H (75-99) mg/dL Phosphorus (2.5-4.5) mg/dL Magnesium (1.6-2.3) mg/dL Total Bilirubin (0.2-1.3) mg/dL AST (17-59) U/L ALT (4-49) U/L Assessment and Plan Plan: Assessment: #1. Acute diabetic ketoacidosis #2. Acute anion-gap Metabolic acidosis related to the above, improved and resolved #3. History of pancreatitis related to alcohol abuse #4. Daily alcohol use, and patient is on CIWA protocol Plan: Patient is doing well Stable Has been transitioned to subcutaneous injections of NovoLog and basal insulin Tolerating oral intake Remains on CIWA scale No agitation no confusion, no headaches no tremors or diaphoresis Signs are stable Pulmonary service will sign off and follow on as-needed basis I performed a history & physical examination of the patient and discussed their management with my nurse practitioner, Laura Jarrell. I reviewed the nurse practitioner's note and agree with the documented findings and plan of care. Lung sounds are positive for diminished breath sounds. The findings and the impression was discussed with the patient. I attest to the documentation by the nurse practitioner. Time with Patient: Less than 30
--- NOTE | 2020-12-31 16:08 | P.PN ---
Subjective Progress Note Date: 12/31/20 Principal diagnosis: Abdominal pain Feeling better but still having 6/10 abdominal pain. No fevers. No nausea or vomiting. Objective - Vital Signs Vital signs: Vital Signs Temp 98.5 F 12/31/20 14:00 Pulse 98 12/31/20 14:00 Resp 16 12/31/20 14:00 BP 137/80 12/31/20 14:00 Pulse Ox 97 12/31/20 14:00 Intake & Output 12/30/20 12/31/20 12/31/20 18:59 06:59 18:59 Intake Total 49.339 5.202 Balance 49.339 5.202 Weight 77.111 kg 77.111 kg Intake: Intake, IV Titration 49.339 5.202 Amount Insulin Regular 100 unit 49.339 5.202 In Sodium Chloride 0.9% 100 ml @ 3 UNIT/HR 3.03 mls/hr IV .Q24H [facility] Rx#: [id number] Other: Voiding Method Toilet # Voids 2 - Exam Constitutional: No acute distress, conversant, pleasant Eyes:Anicteric sclerae, moist conjunctiva, no lid-lag, PERRLA, ENMT: Oropharynx clear, no erythema, exudates Neck: Supple, FROM, no masses, or JVD, No carotid bruits, No thyromegaly Lungs: Clear to auscultation, Clear to percussion, Normal respiratory effort, no accessory muscle use Cardiovascular: Heart regular in rate and rhythm, No murmurs, gallops, or rubs, No peripheral edema Abdominal: Soft, Nontender, no guarding, rebound or rigidity, Normoactive bowel sounds, No hepatomegaly, No splenomegaly, No palpable mass Skin: Normal temperature, tone, texture, turgor, no induration, No subcutaneous nodules, No rash, lesions, No ulcers Extremities: No digital cyanosis, No clubbing, Pedal pulses intact and symmetrical, Radial pulses intact and symmetrical, No calf tenderness Psychiatric: Alert and oriented to person, place and time, appropriate affect, intact judgement Neuro: Muscles Strength 5/5 in all 4 extremities, Sensation to light touch g rossly present throughout, Cranial nerves II-XII grossly intact, no focal sensory deficits - Labs CBC & Chem 7: 12/31/20 05:37 12/31/20 05:37 Labs: Abnormal Lab Results - Last 24 Hours (Table) 12/30/20 12/30/20 12/30/20 Range/Units 16:20 17:37 17:59 WBC (3.8-10.6) k/uL RBC (4.30-5.90) m/uL Lymphocytes # (1.0-4.8) k/uL Sodium 135 L (137-145) mmol/L Creatinine 0.55 L (0.66-1.25) mg/dL Glucose 195 H (74-99) mg/dL POC Glucose (mg/dL) 182 H 134 H (75-99) mg/dL Phosphorus (2.5-4.5) mg/dL Total Bilirubin 3.9 H (0.2-1.3) mg/dL AST 139 H (17-59) U/L ALT 84 H (4-49) U/L 12/30/20 12/30/20 12/30/20 Range/Units 18:57 20:11 21:22 WBC (3.8-10.6) k/uL RBC (4.30-5.90) m/uL Lymphocytes # (1.0-4.8) k/uL Sodium (137-145) mmol/L Creatinine (0.66-1.25) mg/dL Glucose (74-99) mg/dL POC Glucose (mg/dL) 255 H 369 H 364 H (75-99) mg/dL Phosphorus (2.5-4.5) mg/dL Total Bilirubin (0.2-1.3) mg/dL AST (17-59) U/L ALT (4-49) U/L 12/30/20 12/30/20 12/31/20 Range/Units 22:30 23:28 05:37 WBC (3.8-10.6) k/uL RBC (4.30-5.90) m/uL Lymphocytes # (1.0-4.8) k/uL Sodium 136 L (137-145) mmol/L Creatinine (0.66-1.25) mg/dL Glucose 266 H (74-99) mg/dL POC Glucose (mg/dL) 298 H 196 H (75-99) mg/dL Phosphorus 2.0 L (2.5-4.5) mg/dL Total Bilirubin (0.2-1.3) mg/dL AST (17-59) U/L ALT (4-49) U/L 12/31/20 12/31/20 12/31/20 Range/Units 05:37 06:58 12:02 WBC 3.6 L (3.8-10.6) k/uL RBC 4.16 L (4.30-5.90) m/uL Lymphocytes # 0.8 L (1.0-4.8) k/uL Sodium (137-145) mmol/L Creatinine (0.66-1.25) mg/dL Glucose (74-99) mg/dL POC Glucose (mg/dL) 244 H 268 H (75-99) mg/dL Phosphorus (2.5-4.5) mg/dL Total Bilirubin (0.2-1.3) mg/dL AST (17-59) U/L ALT (4-49) U/L Assessment and Plan Plan: Diabetic ketoacidosis -Patient switched to subcu insulin, sliding scale added -Monitor blood glucose, started on diet Alcohol abuse, impending withdrawal -Continue with thiamine and multivitamin -[facility] protocol -Strongly advised on the importance of cessation Lactic acidosis -Monitor to resolution -Continue with IV fluids DVT prophylaxis -Heparin subq Anticipated discharge date: Tomorrow Anticipated discharge place: Home
[2020-12-31 16:32] LABS: Glucose,Whole Blood 220 mg/dL (75-99)
[2020-12-31 20:23] LABS: Glucose,Whole Blood 339 mg/dL (75-99)
[2021-01-01] MEDS: MORPHINE SULFATE 4 MG/ML SYRINGE IV PRN ×2 (00:59→08:58)
[2021-01-01] MEDS: SODIUM CHLORIDE 0.9% 1,000 ML IV SCH (06:28)
[2021-01-01 06:44] LABS: Glucose,Whole Blood 89 mg/dL (75-99)
[2021-01-01 08:10] VITALS: BP 124/79; PULSE 92; RESP 17; TEMP 98.1
[2021-01-01] MEDS: INSULIN ASPART (NovoLOG) 100 UNIT/ML VIAL SQ SCH ×2 (08:47→12:36)
[2021-01-01] MEDS: THIAMINE 100 MG TAB PO SCH (08:57)
[2021-01-01] MEDS: HEPARIN SODIUM,PORCINE/PF 5,000 UNIT/0.5 ML SYRINGE SQ SCH (08:57)
[2021-01-01] MEDS: MULTIVITAMINS, THERA 1 EACH TAB PO SCH (08:57)
[2021-01-01] MEDS ORDERED: FAMOTIDINE 20 MG TAB PO SCH (09:00)
[2021-01-01] MEDS: POTAS-SOD-PHOS 278-164-250 MG 1 EACH PACKET PO SCH (10:06)
[2021-01-01] MEDS: LORazepam 2 MG/ML INJ IV PRN (10:06)
[2021-01-01 12:09] LABS: Glucose,Whole Blood 252 mg/dL (75-99)
--- NOTE | 2021-01-01 12:10 | P.DS ---
Providers Date of admission: 12/30/20 01:40 Expected date of discharge: 01/01/21 Attending physician: Laurita Crandall MD Consults: 12/30/20 02:19 Consult Physician Routine Consulting Provider: Mac Clark Consult Reason/Comments: Critical care management Do you want consulting provider notified?: Already Contacted [facility] Course: 40-year-old male with a PMH of diabetes (mixed type), chronic pancreatitis, and EtOH abuse who presented to the emergency room with complaints of abdominal pain, nausea, and vomiting. The pain was sharp in nature, epigastric, 7 out of 10 at maximal intensity, worsened with food, with no clear alleviating features. He started to drink heavily over the past few weeks, drinking half a gallon of vodka daily. His last drink was 6 hours prior to coming into the emergency room. He reports he has been admitted to multiple hospitals in the past for his alcohol intoxication and has a history of delirium tremens requiring ICU stay with Ativan infusions. He also had history of DKA's. He denied chest pain, shortness of breath, diarrhea, fever, chills, cough, headaches, or dizziness. In the emergency room EKG showed sinus rhythm with short [place] [address]/T-wave changes. Laboratory evaluation was remarkable for a sodium 136, chloride 97, CO2 17, anion gap 32, glucose 246, lactic acid 4.6, total bilirubin 1.8, AST 76, ALT 61, alk phos 137, alcohol level 64, urine ketones 4+, with serum acetone positive, lipase 63. Patient was started on insulin infusion along with IV fluids and is being admitted for management of DKA. He was subsequently admitted, follow-up BMPs was done and once his anion gap closed the insulin drip was held. He was started on subcu insulin. During the hospitalization he was having signs of alcohol withdrawal and was treated with Ativan IV. The abdominal pain did improve with IV fluids, currently it is at a manageable level. Patient was strongly advised to quit drinking alcohol. He was offered medications to help him with that but he stated that he tried those before and they don't work for him. He is currently doing well, will be discharged home in stable condition. Time for discharge 36 min Patient Condition at Discharge: Serious Plan - Discharge Summary Discharge Rx Participant: No New Discharge Prescriptions: Continue Pantoprazole Sodium [Protonix] 40 mg PO DAILY INSULIN LISPRO (HumaLOG) [humaLOG] See Protocol SQ AC-TID traZODone HCL 50 mg PO HS Insulin Glargine,Hum.rec.anlog [Lantus Solostar] 20 unit SQ W/LUNCH Discontinued ALPRAZolam [Xanax] 1 mg PO HS PRN PRN Reason: Anxiety Discharge Medication List INSULIN LISPRO (HumaLOG) [humaLOG] See Protocol SQ AC-TID 12/30/20 [History] Insulin Glargine,Hum.rec.anlog [Lantus Solostar] 20 unit SQ W/LUNCH 12/30/20 [History] Pantoprazole Sodium [Protonix] 40 mg PO DAILY 12/30/20 [History] traZODone HCL 50 mg PO HS 12/30/20 [History] Follow up Appointment(s)/Referral(s): Nick Candelaria MD [Primary Care Provider] - 1-2 days
== END 2021-01-01 14:11 | disposition home or self-care (01) | DRG 638 ==
LOC: EC 22:15 → 2SICU 12-30 01:40 → 4SSUR 12-30 17:19
PROVIDERS: ADMIT Internal Medicine; ATTEND Internal Medicine
DX: E10.10 Type 1 diabetes mellitus with ketoacidosis without coma (principal); K86.1 Other chronic pancreatitis; F10.239 Alcohol dependence with withdrawal, unspecified; K86.81 Exocrine pancreatic insufficiency; Z79.4 Long term (current) use of insulin; Z20.822 Contact with and (suspected) exposure to COVID-19; T38.3X6A Underdosing of insulin and oral hypoglycemic [antidiabetic] drugs, initial encounter; Z91.128 Patient's intentional underdosing of medication regimen for other reason; Y90.3 Blood alcohol level of 60-79 mg/100 ml; F41.9 Anxiety disorder, unspecified; Z72.0 Tobacco use; Z71.6 Tobacco abuse counseling; Z79.899 Other long term (current) drug therapy
CPT/HCPCS: 36415; 80048; 80051; 80053; 80320; 81001; 82009; 82565; 82947; 83036; 83605; 83690; 83735; 84100; 84520; 85025; 87635; 93005; 96361; 96372; 96374; 96375; 99285

== ENCOUNTER 2021-02-22 23:29 | Emergency (ER) | payer OTHER ==
[2021-02-22] MEDS ORDERED: LORazepam 2 MG/ML INJ IV STA (23:48)
--- NOTE | 2021-02-23 00:20 | ED ---
General Adult HPI - General Chief complaint: Recheck/Abnormal Lab/Rx Stated complaint: Shoulder Pain Time Seen by Provider: 02/22/21 23:40 Source: patient Mode of arrival: ambulatory Limitations: no limitations - History of Present Illness Initial comments: This patient is a 40-year-old man who presents with a concern that he may develop DTs. Patient states that he had been drinking alcohol, between the fifth and half gallon of vodka per day for the past 15 or so days. He stopped drinking about 8 hours ago. He is feeling a little shaky and anxious. He states he has previously had a withdrawal seizure. Patient denies chest pain or dyspnea. No fever or chills. No neurologic complaints. Patient states that his right shoulder has also been clicking and popping. He had injuries to the shoulder years ago. No acute trauma. He does demonstrate good range of motion at history and physical. -: hour(s) Consistency: constant Improves with: none Worsens with: none - Related Data Home Medications Medication Instructions Recorded Confirmed INSULIN LISPRO (HumaLOG) [humaLOG] See Protocol SQ AC-TID 12/30/20 12/30/20 Insulin Glargine,Hum.rec.anlog 20 unit SQ W/LUNCH 12/30/20 12/30/20 [Lantus Solostar] Pantoprazole Sodium [Protonix] 40 mg PO DAILY 12/30/20 12/30/20 traZODone HCL 50 mg PO HS 12/30/20 12/30/20 Previous Rx's Medication Instructions Recorded LORazepam [Ativan] 1 mg PO TID 3 Days #9 tab 02/23/21 Allergies Allergy/AdvReac Type Severity Reaction Status Date / Time No Known Allergies Allergy Verified 02/22/21 23:37 Review of Systems ROS Statement: Those systems with pertinent positive or pertinent negative responses have been documented in the HPI. ROS Other: All systems not noted in ROS Statement are negative. Constitutional: Denies: fever, chills, weakness Eyes: Denies: vision change Respiratory: Denies: cough, dyspnea Cardiovascular: Denies: chest pain, palpitations, edema, syncope Gastrointestinal: Denies: abdominal pain, nausea, vomiting Musculoskeletal: Reports: arthralgia. Denies: back pain Skin: Denies: rash Neurological: Denies: headache, weakness, numbness, paresthesias, confusion Past Medical History Past Medical History: Diabetes Mellitus, GERD/Reflux Additional Past Medical History / Comment(s): IDDM pt states he has been told he is type 1 and told he is type II, neuropathy occasionally in bilateral toes/fingers, ETOH abuse, past DT's when withdrawing from alcohol, chronic pancreatitis History of Any Multi-Drug Resistant Organisms: None Reported Past Surgical History: No Surgical Hx Reported Past Anesthesia/Blood Transfusion Reactions: Unable to Obtain Additional Past Anesthesia/Blood Transfusion Reaction / Comment(s): Pt has never had surgery. Past Psychological History: Anxiety Smoking Status: Current every day smoker, Light tobacco smoker Past Alcohol Use History: Abuse, Daily Past Drug Use History: None Reported - Past Family History Father Family Medical History: Diabetes Mellitus Mother History Unknown: Yes General Exam Limitations: no limitations General appearance: alert, in no apparent distress Head exam: Present: atraumatic, normocephalic Eye exam: Present: normal appearance. Absent: scleral icterus, conjunctival inj ection Neck exam: Present: full ROM. Absent: tenderness Respiratory exam: Present: normal lung sounds bilaterally. Absent: respiratory distress, wheezes, rales, rhonchi, stridor Cardiovascular Exam: Present: regular rate, normal rhythm, normal heart sounds. Absent: systolic murmur, diastolic murmur, rubs, gallop GI/Abdominal exam: Present: soft. Absent: distended, tenderness, guarding, rebound, rigid, mass Extremities exam: Present: normal inspection, full ROM, normal capillary refill. Absent: tenderness Back exam: Present: normal inspection Neurological exam: Present: alert, oriented X3. Absent: motor sensory deficit Skin exam: Present: warm, dry, intact, normal color. Absent: rash Course Vital Signs 02/22/21 02/23/21 23:31 00:45 Temperature 97.9 F Pulse Rate 100 86 Respiratory 20 16 Rate Blood Pressure 145/87 126/92 O2 Sat by Pulse 97 95 Oximetry Medical Decision Making - Lab Data Result diagrams: 02/23/21 00:03 02/23/21 00:03 Lab Results 02/23/21 02/23/21 02/23/21 Range/Units 00:03 00:03 00:19 WBC 2.3 L (3.8-10.6) k/uL RBC 4.58 (4.30-5.90) m/uL Hgb 14.8 (13.0-17.5) gm/dL Hct 44.2 (39.0-53.0) % MCV 96.5 (80.0-100.0) fL MCH 32.3 (25.0-35.0) pg MCHC 33.5 (31.0-37.0) g/dL RDW 13.3 (11.5-15.5) % Plt Count 141 L (150-450) k/uL MPV 8.1 Neutrophils % 42 % Lymphocytes % 41 % Monocytes % 8 % Eosinophils % 4 % Basophils % 2 % Neutrophils # 1.0 L (1.3-7.7) k/uL Lymphocytes # 1.0 (1.0-4.8) k/uL Monocytes # 0.2 (0-1.0) k/uL Eosinophils # 0.1 (0-0.7) k/uL Basophils # 0.0 (0-0.2) k/uL Sodium 135 L (137-145) mmol/L Potassium 4.1 (3.5-5.1) mmol/L Chloride 93 L (98-107) mmol/L Carbon Dioxide 26 (22-30) mmol/L Anion Gap 16 mmol/L BUN 9 (9-20) mg/dL Creatinine 0.73 (0.66-1.25) mg/dL Est GFR (CKD-EPI)AfAm >90 (>60 ml/min/1.73 sqM) Est GFR (CKD-EPI)NonAf >90 (>60 ml/min/1.73 sqM) Glucose 666 H* (74-99) mg/dL POC Glucose (mg/dL) 570 H (75-99) mg/dL POC Glu [employer] ID Gail Kramer Calcium 9.0 (8.4-10.2) mg/dL Serum Alcohol 236 H* mg/dL Acetone, Qual Negative (Negative) 02/23/21 02/23/21 02/23/21 Range/Units 01:19 02:20 03:41 WBC (3.8-10.6) k/uL RBC (4.30-5.90) m/uL Hgb (13.0-17.5) gm/dL Hct (39.0-53.0) % MCV (80.0-100.0) fL MCH (25.0-35.0) pg MCHC (31.0-37.0) g/dL RDW (11.5-15.5) % Plt Count (150-450) k/uL MPV Neutrophils % % Lymphocytes % % Monocytes % % Eosinophils % % Basophils % % Neutrophils # (1.3-7.7) k/uL Lymphocytes # (1.0-4.8) k/uL Monocytes # (0-1.0) k/uL Eosinophils # (0-0.7) k/uL Basophils # (0-0.2) k/uL Sodium (137-145) mmol/L Potassium (3.5-5.1) mmol/L Chloride (98-107) mmol/L Carbon Dioxide (22-30) mmol/L Anion Gap mmol/L BUN (9-20) mg/dL Creatinine (0.66-1.25) mg/dL Est GFR (CKD-EPI)AfAm (>60 ml/min/1.73 sqM) Est GFR (CKD-EPI)NonAf (>60 ml/min/1.73 sqM) Glucose (74-99) mg/dL POC Glucose (mg/dL) 494 H 346 H 185 H (75-99) mg/dL POC Glu [employer] Man Méndez Pauline Myers, Taylor Calcium (8.4-10.2) mg/dL Serum Alcohol mg/dL Acetone, Qual (Negative) Disposition Clinical Impression: Hyperglycemia, Alcohol withdrawal Disposition: HOME SELF-CARE Condition: Good Instructions (If sedation given, give patient instructions): Diabetic Hyperglycemia (ED) Prescriptions: LORazepam [Ativan] 1 mg PO TID 3 Days #9 tab Is patient prescribed a controlled substance at d/c from ED?: No Referrals: Nick Candelaria MD [Primary Care Provider] - 1-2 days Naomy Gutierrez DO [Doctor of Osteopathic Medicine] - 1-2 days
[2021-02-23 00:21] LABS: Glucose,Whole Blood 570 mg/dL (75-99)
[2021-02-23] MEDS ORDERED: SODIUM CHLORIDE 0.9% 2,000 ML IV ONE (00:30)
[2021-02-23] MEDS ORDERED: INSULIN REGULAR 100 UNIT/ML VIAL (IV) SQ STA (00:30)
[2021-02-23 00:37] LABS: Basophils % (A) 2 %; Eosinophils # (A) 0.1 k/uL (0-0.7); Eosinophils % (A) 4 %; HCT 44.2 % (39.0-53.0); HGB 14.8 gm/dL (13.0-17.5); Lymphocytes % (A) 41 %; MCH 32.3 pg (25.0-35.0); MCHC 33.5 g/dL (31.0-37.0); MCV 96.5 fL (80.0-100.0); Mean Platelet Volume 8.1; Monocytes # (A) 0.2 k/uL (0-1.0); Monocytes % (A) 8 %; Neutrophils % (A) 42 %; Platelet Count 141 k/uL (150-450); RBC 4.58 m/uL (4.30-5.90); RDW 13.3 % (11.5-15.5); WBC 2.3 k/uL (3.8-10.6)
[2021-02-23 00:46] LABS: African American GFR (CKD) >90 (>60 ml/min/1.73 sqM); Anion Gap 16 mmol/L; Blood Urea Nitrogen 9 mg/dL (9-20); Carbon Dioxide 26 mmol/L (22-30); Chloride 93 mmol/L (98-107); Non-African American GFR(CKD) >90 (>60 ml/min/1.73 sqM); Potassium 4.1 mmol/L (3.5-5.1); Sodium 135 mmol/L (137-145)
[2021-02-23 01:10] LABS: Alcohol 236 mg/dL
[2021-02-23 01:13] LABS: Glucose 666 mg/dL (74-99)
[2021-02-23 01:20] LABS: Glucose,Whole Blood 494 mg/dL (75-99)
[2021-02-23 02:23] LABS: Glucose,Whole Blood 346 mg/dL (75-99)
[2021-02-23] MEDS ORDERED: LORazepam 2 MG/ML INJ IV STA (02:33)
[2021-02-23] MEDS ORDERED: SODIUM CHLORIDE 0.9% 1,000 ML IV ONE (02:33)
[2021-02-23 03:44] LABS: Glucose,Whole Blood 185 mg/dL (75-99)
[2021-02-23 04:30] VITALS: RESP 18
[2021-02-23 04:36] VITALS: BP 128/88; PULSE 91; TEMP 98.3
== END 2021-02-23 04:09 | disposition home or self-care (01) ==
LOC: EC 23:29
DX: E11.65 Type 2 diabetes mellitus with hyperglycemia (principal); F10.239 Alcohol dependence with withdrawal, unspecified; M25.511 Pain in right shoulder; K21.9 Gastro-esophageal reflux disease without esophagitis; F17.200 Nicotine dependence, unspecified, uncomplicated; Z79.4 Long term (current) use of insulin; Z79.899 Other long term (current) drug therapy; Y90.7 Blood alcohol level of 200-239 mg/100 ml
CPT/HCPCS: 36415; 80048; 82009; 85025; 96374; 96376; 96361; 99283; G0480; J2060; 80320

== ENCOUNTER 2021-04-14 12:37 | Inpatient (IN) | payer OTHER ==
[2021-04-14 13:03] VITALS: TEMP 98.1
[2021-04-14] MEDS ORDERED: SODIUM CHLORIDE 0.9% 1,000 ML IV STA ×2 (14:58→19:32)
[2021-04-14] MEDS ORDERED: LORazepam 2 MG/ML INJ IV PRN ×2 (15:18)
[2021-04-14] MEDS ORDERED: THIAMINE 100 MG/ML 2 ML VIAL IM STA (15:18)
[2021-04-14 15:46] LABS: Basophils # (A) 0.1 k/uL (0-0.2); Basophils % (A) 1 %; Eosinophils # (A) 0.1 k/uL (0-0.7); Eosinophils % (A) 1 %; HCT 34.4 % (39.0-53.0); Lymphocytes # (A) 1.6 k/uL (1.0-4.8); Lymphocytes % (A) 29 %; MCH 29.2 pg (25.0-35.0); MCHC 30.8 g/dL (31.0-37.0); MCV 94.9 fL (80.0-100.0); Mean Platelet Volume 7.7; Monocytes # (A) 0.1 k/uL (0-1.0); Monocytes % (A) 2 %; Neutrophils # (A) 3.4 k/uL (1.3-7.7); Neutrophils % (A) 63 %; Platelet Count 224 k/uL (150-450); RBC 3.63 m/uL (4.30-5.90); RDW 13.3 % (11.5-15.5); WBC 5.4 k/uL (3.8-10.6)
[2021-04-14 15:54] LABS: HGB 10.6 gm/dL (13.0-17.5)
[2021-04-14] MEDS: THIAMINE 100 MG TAB PO SCH (15:58)
[2021-04-14 16:00] LABS: ALT 36 U/L (4-49); AST 42 U/L (17-59); African American GFR (CKD) >90 (>60 ml/min/1.73 sqM); Albumin 5.4 g/dL (3.5-5.0); Alkaline Phosphatase 127 U/L (38-126); Anion Gap 28 mmol/L; Blood Urea Nitrogen 15 mg/dL (9-20); Calcium 10.3 mg/dL (8.4-10.2); Carbon Dioxide 13 mmol/L (22-30); Chloride 96 mmol/L (98-107); Glucose 271 mg/dL (74-99); Lipase 47 U/L (23-300); Magnesium 1.4 mg/dL (1.6-2.3); Non-African American GFR(CKD) >90 (>60 ml/min/1.73 sqM); Potassium 5.2 mmol/L (3.5-5.1); Sodium 137 mmol/L (137-145); Total Bilirubin 1.3 mg/dL (0.2-1.3); Total Protein 7.9 g/dL (6.3-8.2)
[2021-04-14 16:04] LABS: Alcohol 253 mg/dL
[2021-04-14 17:35] LABS: Appearance,Urine Clear (Clear); Bilirubin,Urine Negative (Negative); Blood,Urine Negative (Negative); Color,Urine Light Yellow; Glucose,Urine (UA) 4+ (Negative); Leukocyte Esterase,Urine Negative (Negative); Nitrite,Urine Negative (Negative); PH, Urine 5.5 (5.0-8.0); Protein,Urine 2+ (Negative); RBC,Urine <1 /hpf (0-5); Specific Gravity,Urine 1.035 (1.001-1.035); Squamous Epithelial Cell,Urine <1 /hpf (0-4); Urobilinogen,Urine <2.0 mg/dL (<2.0); WBC,Urine <1 /hpf (0-5)
--- NOTE | 2021-04-14 17:40 | CT ---
EXAMINATION TYPE: CT brain wo con DATE OF EXAM: 04/14/2021 HISTORY: hallucinations during alcohol detox. CT DLP: 1117.2 mGycm. Automated Exposure Control for Dose Reduction was Utilized. TECHNIQUE: CT scan of the head is performed without contrast. COMPARISON: None FINDINGS: There is no acute intracranial hemorrhage, midline shift, or mass effect identified. Brain parenchyma appears normal. The ventricles, sulci, and cisterns are normal in size and configuration. No extra-axial fluid collection. Bones and extracranial soft tissues are intact. The globes are gross ly symmetric. Visualized sinuses and mastoid air cells are clear. IMPRESSION: No acute intracranial hemorrhage, midline shift, or mass effect.
[2021-04-14 17:42] LABS: Ketones,Urine 4+ (Negative)
--- NOTE | 2021-04-14 17:45 | CT ---
EXAMINATION TYPE: CT angio head neck DATE OF EXAM: 04/14/2021 HISTORY: hallucinations during alcohol detox COMPARISON: None CT DLP: 436.9 mGycm. Automated Exposure Control for Dose Reduction was Utilized. TECHNIQUE: CTA scan of the neck is performed with IV Contrast, patient injected with 65cc mL of Isov ue 370, axial images are obtained, coronal and sagittal reformatted images are reviewed. Three-D cordelia nstructed images are created on an independent workstation and reviewed. FINDINGS: Carotid/Vascular Structures: No evidence of occlusion, hemodynamically significant stenosis, aneurysm , or dissection of the common or internal carotid arteries bilaterally. Vertebral basilar system is l eft dominant. Vertebral arteries appear patent. Cervical of [place]: Posterior cerebral vasculature is unremarkable. Internal carotid arteries bifurca te normally into A1 and M1 segments. A2 segments are normal. The anterior communicating artery is pat ent. Hypoplasia or absence of the bilateral posterior communicating arteries. Other: Paraseptal emphysematous changes at the lung apices IMPRESSION: 1. No evidence of large vessel occlusion or hemodynamically significant stenosis of the arteries of t he head or neck. 2. Paraseptal emphysematous change at the lung apices. NASCET criteria was used in interpretation of this exam?
[2021-04-14 19:28] LABS: Glucose,Whole Blood 250 mg/dL (75-99)
[2021-04-14] MEDS ORDERED: CALCIUM GLUCONATE 1 GM in SODIUM CHLORIDE 0.9% 100 ML IVPB ONE (19:32)
--- NOTE | 2021-04-14 19:36 | ED ---
General Adult HPI - General Chief complaint: Alcohol Stated complaint: Alcohol Time Seen by Provider: 04/14/21 14:44 Source: patient, RN notes reviewed, old records reviewed Mode of arrival: ambulatory Limitations: no limitations - History of Present Illness Initial comments: Patient is a 40-year-old male who presents emergency Department complaining of "sparkles in my vision." He states he has a history of chronic alcohol use as well as poorly controlled diabetes, GERD with a history of alcohol withdrawal presents emergency Department complaining of changes in his vision. He also has a history of chronic pancreatitis which is not bothering him at this time. He does endorse drinking over the last 5 days. Denies any hallucinations, tremors. States he last drank this morning, 2 glasses of vodka. He states that his last known well was last night. Since early this morning, he has been having "sparkles in my vision." They're not affected his ability to see. This has not happened before. He denies any headache, weakness, numbness otherwise. Denies any visual deficits. He is uncertain what is causing the current symptoms. Denies any eye pain or trauma. Denies any head trauma. Denies any history of stroke. He states he does not feel like he is going through a call withdrawals at this time. Denies any chest pain, shortness breath, abdominal pain, nausea, vomiting. Patient is concerned for his vision. He states that the symptoms have been more or less constant since he woke. Denies any change in the symptoms with movement or walking and certain directions. He is uncertain as causing these symptoms. He does not wear glasses or contacts. I evaluated the patient was placed in a room. - Related Data Home Medications Medication Instructions Recorded Confirmed INSULIN LISPRO (HumaLOG) [humaLOG] See Protocol SQ AC-TID 12/30/20 04/14/21 Insulin Glargine,Hum.rec.anlog 20 unit SQ HS 12/30/20 04/14/21 [Lantus Solostar Pen] Pantoprazole Sodium [Protonix] 40 mg PO DAILY 12/30/20 04/14/21 traZODone HCL 50 mg PO HS PRN 12/30/20 04/14/21 ALPRAZolam [Xanax] 0.25 mg PO DAILY PRN 04/14/21 04/14/21 Allergies Allergy/AdvReac Type Severity Reaction Status Date / Time No Known Allergies Allergy Verified 04/14/21 15:33 Review of Systems ROS Statement: Those systems with pertinent positive or pertinent negative responses have been documented in the HPI. Review of Systems: CONST: Denies fever EYES: Endorses sparkles in vision. ENT: Denies nasal congestion C/V: Denies Chest pain RESP: Denies shortness of breath GI: Denies abdominal pain : Denies dysuria SKIN: Denies rash. MSK: Denies joint pain. NEURO: Denies headache ROS Other: All systems not noted in ROS Statement are negative. Past Medical History Past Medical History: Diabetes Mellitus, GERD/Reflux Additional Past Medical History / Comment(s): IDDM pt states he has been told he is type 1 and told he is type II, neuropathy occasionally in bilateral toes/fingers, ETOH abuse, past DT's when withdrawing from alcohol, chronic pancreatitis History of Any Multi-Drug Resistant Organisms: None Reported Past Surgical History: No Surgical Hx Reported Past Anesthesia/Blood Transfusion Reactions: Unable to Obtain Additional Past Anesthesia/Blood Transfusion Reaction / Comment(s): Pt has never had surgery. Past Psychological History: Anxiety Smoking Status: Current every day smoker, Light tobacco smoker Past Alcohol Use History: Abuse, Daily Past Drug Use History: None Reported - Past Family History Father Family Medical History: Diabetes Mellitus Mother History Unknown: Yes General Exam - General Exam Comments Initial Comments: General: Appears in no acute distress. HEAD: Normal with no signs of head trauma. EYES: PERRLA, EOMI, conjunctiva normal, no discharge. Eye exam is unremarkable. No signs of trauma. Has no pain. Patient's vision appears to be 20/20 in both eyes. Acuity is normal. Accommodation is normal. Ultrasound revealed no signs of retinal detachment in either eye. ENT: Hearing grossly intact, normal oropharynx. RESPIRATORY: Clear breath sounds bilaterally. No wheezes, rales, or rhonchi. C/V: Patient is mildly tachycardic with a regular rhythm. S1 and S2 auscultated. Peripheral pulses are 2+ and intact throughout. ABD: Abd is soft, nontender, nondistended EXT: Normal range of motion, no obvious deformity SKIN: No rashes or lesions observed on exposed skin. NEURO: Alert and oriented x 4. Cranial nerves II-XII intact. No focal sensory or strength deficits. Cerebellar function is intact as evident by normal finger to nose testing. He is able to ambulate without difficulty. NIH stroke scale is 0. Limitations: no limitations Course Vital Signs 04/14/21 04/14/21 04/14/21 13:00 16:02 18:00 Temperature 98.1 F Pulse Rate 108 H 101 H 77 Respiratory 18 18 20 Rate Blood Pressure 140/75 138/65 122/76 O2 Sat by Pulse 96 98 95 Oximetry Procedures - Downing Protocol (Time Out) Nurse: Paulo Pennington Medical Decision Making - Medical Decision Making Based on the patient's presentation and physical exam, I do not have a clear explanation for his current visual symptoms. His eye exam on my count appears to be within normal limits. I did have difficulty observing the fundus. I have low suspicion for stroke at this time but we will obtain CT imaging to rule it out. We'll obtain basic laboratory studies as well. It is possible that this is a sequelae of his chronic poorly controlled diabetes. Patient was in agreement this plan. He will be given a 1 L fluid bolus while he is waiting in the emergency department. [facility] alcohol withdrawal precautions were placed. Does have a history of alcohol withdrawals. Alcohol level also be obtained. He denies any suicidal or homicidal ideations or attempts or plans, and therefore do not believe that he requires any psychiatric consult at this time. He will be connected to continuous cardiac monitoring while he is here in the [facility]. We will obtain a cardiac workup in addition to the above plan. Patient's EKG shows no signs of acute ischemia. CT imaging of the brain without contrast and angiography of the brain and neck revealed no acute intracranial process. His no sitting significant large vessel occlusion or hemodynamically significant stenosis of the arteries of the head or neck. Patient's laboratory studies are consistent with alcoholic ketoacidosis, which she does have a history of. This includes a mild hyperkalemia 5.2 without any significant EKG changes. Patient is acidotic with a metabolic acidosis with a bicarbonate 13 with an anion gap of 28, likely secondary to his acute alcohol intoxication. Patient is hyperglycemic and setting of insulin-dependent diabetes at 271. He is hypomagnesemic to 1.4 and mildly thalassemic to 10.3. Troponin is negative. Alk phos is mildly elevated 127. Patient's urinalysis was remarkable for 4+ glucose and 4+ ketones likely secondary to his poorly controlled diabetes as well as alcoholic ketoacidosis. Serum alcohol level is 253. I discussed with the patient results of his imaging and laboratory studies. I did recommend that we admit him to the hospital for management as of his car ketoacidosis, acute alcohol intoxication, as well as to be evaluated by ophthalmology tomorrow. He was in agreement with this plan. Opthamology was consulted. I spoke with the on-call physician, Dr. Alonso who accepted the patient. Patient was admitted and serous condition. - Lab Data Result diagrams: 04/14/21 15:27 04/14/21 15:27 Lab Results 04/14/21 04/14/21 04/14/21 Range/Units 15:27 15:27 15:27 WBC 5.4 (3.8-10.6) k/uL RBC 3.63 L (4.30-5.90) m/uL Hgb 10.6 L D (13.0-17.5) gm/dL Hct 34.4 L (39.0-53.0) % MCV 94.9 (80.0-100.0) fL MCH 29.2 (25.0-35.0) pg MCHC 30.8 L (31.0-37.0) g/dL RDW 13.3 (11.5-15.5) % Plt Count 224 (150-450) k/uL MPV 7.7 Neutrophils % 63 % Lymphocytes % 29 % Monocytes % 2 % Eosinophils % 1 % Basophils % 1 % Neutrophils # 3.4 (1.3-7.7) k/uL Lymphocytes # 1.6 (1.0-4.8) k/uL Monocytes # 0.1 (0-1.0) k/uL Eosinophils # 0.1 (0-0.7) k/uL Basophils # 0.1 (0-0.2) k/uL Sodium 137 (137-145) mmol/L Potassium 5.2 H (3.5-5.1) mmol/L Chloride 96 L (98-107) mmol/L Carbon Dioxide 13 L (22-30) mmol/L Anion Gap 28 mmol/L BUN 15 (9-20) mg/dL Creatinine 0.73 (0.66-1.25) mg/dL Est GFR (CKD-EPI)AfAm >90 (>60 ml/min/1.73 sqM) Est GFR (CKD-EPI)NonAf >90 (>60 ml/min/1.73 sqM) Glucose 271 H (74-99) mg/dL POC Glucose (mg/dL) (75-99) mg/dL POC Glu Telemarketing Sales Representative ID Calcium 10.3 H (8.4-10.2) mg/dL Magnesium 1.4 L (1.6-2.3) mg/dL Total Bilirubin 1.3 (0.2-1.3) mg/dL AST 42 (17-59) U/L ALT 36 (4-49) U/L Alkaline Phosphatase 127 H (38-126) U/L Troponin I <0.012 (0.000-0.034) ng/mL Total Protein 7.9 (6.3-8.2) g/dL Albumin 5.4 H (3.5-5.0) g/dL Lipase 47 (23-300) U/L Urine Color Urine Appearance (Clear) Urine pH (5.0-8.0) Ur Specific [place] (1.001-1.035) Urine Protein (Negative) Urine Glucose (UA) (Negative) Urine Ketones (Negative) Urine Blood (Negative) Urine Nitrite (Negative) Urine Bilirubin (Negative) Urine Urobilinogen (<2.0) mg/dL Ur Leukocyte Esterase (Negative) Urine RBC (0-5) /hpf Urine WBC (0-5) /hpf Ur Squamous Epith Cells (0-4) /hpf Serum Alcohol 253 H* mg/dL 04/14/21 04/14/21 Range/Units 15:27 19:27 WBC (3.8-10.6) k/uL RBC (4.30-5.90) m/uL Hgb (13.0-17.5) gm/dL Hct (39.0-53.0) % MCV (80.0-100.0) fL MCH (25.0-35.0) pg MCHC (31.0-37.0) g/dL RDW (11.5-15.5) % Plt Count (150-450) k/uL MPV Neutrophils % % Lymphocytes % % Monocytes % % Eosinophils % % Basophils % % Neutrophils # (1.3-7.7) k/uL Lymphocytes # (1.0-4.8) k/uL Monocytes # (0-1.0) k/uL Eosinophils # (0-0.7) k/uL Basophils # (0-0.2) k/uL Sodium (137-145) mmol/L Potassium (3.5-5.1) mmol/L Chloride (98-107) mmol/L Carbon Dioxide (22-30) mmol/L Anion Gap mmol/L BUN (9-20) mg/dL Creatinine (0.66-1.25) mg/dL Est GFR (CKD-EPI)AfAm (>60 ml/min/1.73 sqM) Est GFR (CKD-EPI)NonAf (>60 ml/min/1.73 sqM) Glucose (74-99) mg/dL POC Glucose (mg/dL) 250 H (75-99) mg/dL POC Glu Telemarketing Sales Representative ID Paulo Pennington A Calcium (8.4-10.2) mg/dL Magnesium (1.6-2.3) mg/dL Total Bilirubin (0.2-1.3) mg/dL AST (17-59) U/L ALT (4-49) U/L Alkaline Phosphatase (38-126) U/L Troponin I (0.000-0.034) ng/mL Total Protein (6.3-8.2) g/dL Albumin (3.5-5.0) g/dL Lipase (23-300) U/L Urine Color Light Yellow Urine Appearance Clear (Clear) Urine pH 5.5 (5.0-8.0) Ur Specific [place] 1.035 (1.001-1.035) Urine Protein 2+ H (Negative) Urine Glucose (UA) 4+ H (Negative) Urine Ketones 4+ H (Negative) Urine Blood Negative (Negative) Urine Nitrite Negative (Negative) Urine Bilirubin Negative (Negative) Urine Urobilinogen <2.0 (<2.0) mg/dL Ur Leukocyte Esterase Negative (Negative) Urine RBC <1 (0-5) /hpf Urine WBC <1 (0-5) /hpf Ur Squamous Epith Cells <1 (0-4) /hpf Serum Alcohol mg/dL - EKG Data -: EKG Interpreted by Me EKG Comments: 12-lead Electrocardiogram Interpretation Note EKG was reviewed and interpreted by myself. 12-lead ECG performed at 1923 is interpreted by me as revealing normal sinus rhythm at a rate of 91 beats per minute. Henley is normal. NH interval is 116 ms, QRS duration is 86 ms, QTc is 460 ms.. There were no ST or T wave abnormalities to suggest myocardial ischemia or injury. R wave progression across the precordium was satisfactory. By my interpretation this EKG is non-diagnostic for acute ischemia. There are mildly peaked T waves in leads V3 and V4, but is not diffuse. Disposition Clinical Impression: Alcoholic intoxication, Alcoholic ketoacidosis, Visual changes, Hypomagnesemia, Hyperkalemia, Uncontrolled diabetes mellitus, Metabolic acidosis, increased anion gap, Hyperglycemia Disposition: ADMITTED IP TO THIS HOSP Condition: Serious
[2021-04-14] MEDS ORDERED: ACETAMINOPHEN TAB 325 MG TAB PO PRN (19:40)
[2021-04-14] MEDS ORDERED: IBUPROFEN 400 MG TAB PO PRN (19:40)
[2021-04-14] MEDS ORDERED: NALOXONE 0.4 MG/ML 1 ML VIAL IV PRN (19:40)
[2021-04-14] MEDS ORDERED: ONDANSETRON 4 MG/2 ML VIAL IVP PRN (19:40)
[2021-04-14] MEDS: LORazepam 2 MG/ML INJ IV PRN (20:06)
[2021-04-14] MEDS ORDERED: INSULIN REGULAR BOLUS (FROM DRIP BAG) IV ONE (23:07)
[2021-04-14] MEDS ORDERED: Magnesium Replacement Protocol 1 EACH MISC MISCELLANE PRN (23:07)
[2021-04-14] MEDS ORDERED: Potassium Replacement Protocol 1 EACH MISC MISCELLANE PRN (23:07)
[2021-04-14] MEDS ORDERED: SODIUM CHLORIDE 0.9% 1,000 ML IV SCH (23:15)
[2021-04-14] MEDS ORDERED: INSULIN REGULAR 100 UNIT in SODIUM CHLORIDE 0.9% 100 ML IV SCH (23:15)
--- NOTE | 2021-04-14 23:27 | P.HPIM ---
History of Present Illness H&P Date: 04/14/21 Chief Complaint: seeing stars in his visual field 40 year old male with IDDM , chronic pancreatitis, alcohol dependance and abuse. patient comes in due to waking up seeing stars in his visual field, he is going through tough social challenges and uses alcohol to help clear his mind. he recognizes the risk of his behavior , and was sober for 100 days at one point, but relapses frequently . 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 and admits to frequent episodes of pancreatitis and DKA in the past. most recent one was 4 months ago. he comes in today with main concern of seeing stars, he believes that he is hallucinating, he never had this issue before, he does not see an eye doc on regular basis and has been years since last exam , he is not very compliant with his diet or insulin . he denies any eye pain , or trauma, denies any issues with his vision in the past, he claims that his vision is clear, but sees stars around the peripheral vision , like sparkling lights. he denies doing any illegal drugs he otherwise, denies any headache, changes in his hearing or other focal neuro deficits. he deana any chest pain trouble breathing, nausea or vomiting. denies any diarrhea or GI bleedin g in the ED, he had a stroke workup which showed no acute pathology blood work showed severe anion gap metabolic acidosis , with ketones in urine and positive acetone, patient will be started on DKA protocol . lipase was within normal limits anemia, patient denies any GI bleeding that he noticed, and denies any history of GI bleeding Mg low, slightly elevated K , ETOH 253 blood sugar 271 Review of Systems Pertinent positives as noted in HPI. All other systems were reviewed and are negative Past Medical History Past Medical History: Diabetes Mellitus, GERD/Reflux Additional Past Medical History / Comment(s): IDDM pt states he has been told he is type 1 and told he is type II, neuropathy occasionally in bilateral toes/fingers, ETOH abuse, past DT's when withdrawing from alcohol, chronic pancreatitis History of Any Multi-Drug Resistant Organisms: None Reported Past Surgical History: No Surgical Hx Reported Past Anesthesia/Blood Transfusion Reactions: Unable to Obtain Additional Past Anesthesia/Blood Transfusion Reaction / Comment(s): Pt has never had surgery. Past Psychological History: Anxiety Smoking Status: Current every day smoker, Light tobacco smoker Past Alcohol Use History: Abuse, Daily Past Drug Use History: None Reported - Past Family History Father Family Medical History: Diabetes Mellitus Mother History Unknown: Yes Medications and Allergies Home Medications Medication Instructions Recorded Confirmed Type INSULIN LISPRO (HumaLOG) [humaLOG] See Protocol SQ AC-TID 12/30/20 04/14/21 History Insulin Glargine,Hum.rec.anlog 20 unit SQ HS 12/30/20 04/14/21 History [Lantus Solostar Pen] Pantoprazole Sodium [Protonix] 40 mg PO DAILY 12/30/20 04/14/21 History traZODone HCL 50 mg PO HS PRN 12/30/20 04/14/21 History ALPRAZolam [Xanax] 0.25 mg PO DAILY PRN 04/14/21 04/14/21 History Allergies Allergy/AdvReac Type Severity Reaction Status Date / Time No Known Allergies Allergy Verified 04/14/21 15:33 Physical Exam Vitals: Vital Signs Temp Pulse Resp BP Pulse Ox 04/14/21 18:00 77 20 122/76 95 04/14/21 16:02 101 H 18 138/65 98 04/14/21 13:00 98.1 F 108 H 18 140/75 96 Intake and Output 04/14/21 04/14/21 04/15/21 14:59 22:59 06:59 Other: Weight 77.111 kg Constitutional: No acute distress, conversant, pleasant Eyes: Anicteric sclerae, moist conjunctiva, Pupils equal round reactive to light fundoscopic eye exam , Grossly unremarkable will wait for ophthalmology exam , visual field was normal compared to examiner visual acuity was grossly unremarkable, no tenderness to palpation of the eye, ENMT: NC/AT Oropharynx clear, no erythema, or exudates Neck: Supple, FROM, no masses, or JVD No carotid bruits No thyromegaly Lungs: Clear to auscultation Clear to percussion Normal respiratory effort, no accessory muscle use Cardiovascular: Heart regular in rate and rhythm, No murmurs, gallops, or rubs No peripheral edema Abdominal: Soft, discomfort to deep palpation of epigastric region Nontender, no guarding, rebound or rigidity Abdomen moving with respiration Normoactive bowel sounds No hepatomegaly, No splenomegaly No palpable mass No abdominal wall hernia noted Skin: Normal temperature, tone, texture, turgor No induration No subcutaneous nodules No rash, lesions No ulcers Extremities: No digital cyanosis No clubbing Pedal pulses intact and symmetrical Radial pulses intact and symmetrical No calf tenderness Psychiatric: Alert and oriented to person, place and time Appropriate affect fair judgement Neuro Muscles Strength 5/5 in all 4 extremities Sensation to light touch grossly present throughout Cranial nerves II-XII grossly intact No focal sensory deficits Lymphatics: no palpable cervical or supraclavicular , or inguinal lymph nodes Results CBC & Chem 7: 04/14/21 15:27 04/14/21 15:27 Labs: Abnormal Lab Results - Last 24 Hours (Table) 04/14/21 04/14/21 04/14/21 Range/Units 15:: 15: RBC 3.63 L (4.30-5.90) m/uL Hgb 10.6 L D (13.0-17.5) gm/dL Hct 34.4 L (39.0-53.0) % MCHC 30.8 L (31.0-37.0) g/dL Potassium 5.2 H (3.5-5.1) mmol/L Chloride 96 L (98-107) mmol/L Carbon Dioxide 13 L (22-30) mmol/L Glucose 271 H (74-99) mg/dL POC Glucose (mg/dL) (75-99) mg/dL Calcium 10.3 H (8.4-10.2) mg/dL Magnesium 1.4 L (1.6-2.3) mg/dL Alkaline Phosphatase 127 H (38-126) U/L Albumin 5.4 H (3.5-5.0) g/dL Urine Protein 2+ H (Negative) Urine Glucose (UA) 4+ H (Negative) Urine Ketones 4+ H (Negative) Serum Alcohol 253 H* mg/dL 04/14/21 Range/Units 19:27 RBC (4.30-5.90) m/uL Hgb (13.0-17.5) gm/dL Hct (39.0-53.0) % MCHC (31.0-37.0) g/dL Potassium (3.5-5.1) mmol/L Chloride (98-107) mmol/L Carbon Dioxide (22-30) mmol/L Glucose (74-99) mg/dL POC Glucose (mg/dL) 250 H (75-99) mg/dL Calcium (8.4-10.2) mg/dL Magnesium (1.6-2.3) mg/dL Alkaline Phosphatase (38-126) U/L Albumin (3.5-5.0) g/dL Urine Protein (Negative) Urine Glucose (UA) (Negative) Urine Ketones (Negative) Serum Alcohol mg/dL Assessment and Plan Assessment: DKA moderate alcoholic intoxication , with pending alcohol withdrawal syndrome vision changes plan NPOIVF hydration with 2 L NS boluses , then continue NS IVF per DKA protocol insulin drip DC sc insulin follow DKA protocol for q1h sugar checks, and q4h electrolytes transition fluids to D5 0.45 when blood sugar <250 until anion gap closes and bicarb >18 alcohol withdrawal precautions benzo per CIWA protocol thiamine seizure precautions ophthalmology consult CT brain no acute pathology anemia , no reported overt GI bleeding monitor Hgb possible gastritis from alcohol abuse PPI electrolyte imbalance , hypomagnesemia and hypokalemia replace and monitor levels psychotherapist social worker consutl for substance abuse CODE STATUS:full code DVT prophylaxis: mechanical Discussed with: Patient, ER, RN Anticipated length of stay > than [address]: home vs rehab for substance abuse A total of 65 minutes was spent on the care of this complex patient more than 50% of the time was spent in counseling and care coordination.
[2021-04-14 23:34] LABS: Glucose,Whole Blood 306 mg/dL (75-99)
[2021-04-15] MEDS: LORazepam 2 MG/ML INJ IV PRN ×4 (00:54→12:12)
[2021-04-15 01:06] LABS: Glucose,Whole Blood 236 mg/dL (75-99)
[2021-04-15 01:23] LABS: African American GFR (CKD) >90 (>60 ml/min/1.73 sqM); Anion Gap 18 mmol/L; Blood Urea Nitrogen 11 mg/dL (9-20); Carbon Dioxide 15 mmol/L (22-30); Chloride 101 mmol/L (98-107); Glucose 266 mg/dL (74-99); Non-African American GFR(CKD) >90 (>60 ml/min/1.73 sqM); Potassium 4.3 mmol/L (3.5-5.1); Sodium 134 mmol/L (137-145)
[2021-04-15] MEDS: PANTOPRAZOLE 40 MG TABLET PO SCH ×2 (02:15→07:06)
[2021-04-15] MEDS: MAGNESIUM SULFATE-D5W PMX 1 GM in DEXTROSE/WATER 1 100ML.BAG IVPB SCH ×2 (02:15→03:25)
[2021-04-15] MEDS: D5-0.45% NACL WITH KCL 20MEQ/L 1,000 ML IV SCH ×2 (02:26→12:16)
[2021-04-15 02:33] LABS: Glucose,Whole Blood 201 mg/dL (75-99)
[2021-04-15 03:31] LABS: Glucose,Whole Blood 207 mg/dL (75-99)
[2021-04-15 04:27] LABS: Amphetamine Screen,Urine Not Detected (NotDetected); Barbiturate Screen,Urine Not Detected (NotDetected); Benzodiazepines Screen,Urine Detected (NotDetected); Cocaine Screen,Urine Not Detected (NotDetected); Methadone Screen, Urine Not Detected (NotDetected); Opiate Screen,Urine Not Detected (NotDetected); Oxycodone Screen, Urine Not Detected (NotDetected); Phencyclidine Screen,Urine Not Detected (NotDetected); Tricyclic Antidepressant,Urine Not Detected (NotDetected); Urn Cannabinoid Scrn Not Detected (NotDetected)
[2021-04-15 04:58] LABS: Basophils # (A) 0.1 k/uL (0-0.2); Basophils % (A) 1 %; Eosinophils # (A) 0.2 k/uL (0-0.7); Eosinophils % (A) 3 %; HCT 48.2 % (39.0-53.0); Lymphocytes # (A) 1.7 k/uL (1.0-4.8); Lymphocytes % (A) 35 %; MCHC 33.5 g/dL (31.0-37.0); MCV 95.3 fL (80.0-100.0); Mean Platelet Volume 8.6; Monocytes # (A) 0.4 k/uL (0-1.0); Monocytes % (A) 8 %; Neutrophils # (A) 2.4 k/uL (1.3-7.7); Neutrophils % (A) 49 %; Platelet Count 192 k/uL (150-450); RBC 5.06 m/uL (4.30-5.90); RDW 13.5 % (11.5-15.5); WBC 4.9 k/uL (3.8-10.6)
[2021-04-15 04:59] LABS: Glucose,Whole Blood 131 mg/dL (75-99)
[2021-04-15 05:06] VITALS: BP 133/87; PULSE 78; RESP 18
[2021-04-15 05:13] LABS: HGB 16.2 gm/dL (13.0-17.5)
[2021-04-15 05:14] LABS: African American GFR (CKD) >90 (>60 ml/min/1.73 sqM); Anion Gap 11 mmol/L; Blood Urea Nitrogen 13 mg/dL (9-20); Calcium 9.6 mg/dL (8.4-10.2); Carbon Dioxide 18 mmol/L (22-30); Chloride 104 mmol/L (98-107); Glucose 150 mg/dL (74-99); Magnesium 1.7 mg/dL (1.6-2.3); Non-African American GFR(CKD) >90 (>60 ml/min/1.73 sqM); Phosphorus 1.8 mg/dL (2.5-4.5); Potassium 4.1 mmol/L (3.5-5.1); Sodium 133 mmol/L (137-145)
[2021-04-15 06:23] LABS: Glucose,Whole Blood 110 mg/dL (75-99)
[2021-04-15] MEDS: THIAMINE 100 MG TAB PO SCH (07:06)
[2021-04-15] MEDS ORDERED: PANTOPRAZOLE 40 MG TABLET PO SCH (07:30)
[2021-04-15] MEDS ORDERED: INSULIN ASPART (NovoLOG) 100 UNIT/ML VIAL SQ SCH ×2 (07:30→12:30)
[2021-04-15 07:32] LABS: Glucose,Whole Blood 80 mg/dL (75-99)
[2021-04-15 08:06] LABS: Glucose,Whole Blood 119 mg/dL (75-99)
[2021-04-15] MEDS ORDERED: INSULIN DETEMIR (LEVEMIR) 100 UNIT/ML SYR SQ SCH (08:15)
--- NOTE | 2021-04-15 10:56 | P.DS ---
Providers Date of admission: 04/14/21 19:40 Expected date of discharge: 04/15/21 Attending physician: Gigi Alonso MD Primary care physician: Nick Candelaria [facility] Course: This is a 40-year-old male with past medical history significant for type 2 diabetes, chronic pancreatitis, and chronic alcohol abuse who presented to the emergency room with confusion and reported being seeing stars. Patient was evaluated in the ER and was found to be intoxicated with alcohol. Lab work showed evidence of mild DKA. Patient was admitted to observation unit and was treated aggressively with IV fluid and insulin drip per DKA protocol. His lab work improved significantly and anion gap closed. Patient was seen and evaluated on the day of discharge in the morning. He was completely sober. He was transitioned to subcutaneous insulin and was able to finish his breakfast with no difficulty. He denies any vision problems this morning. He will be discharged home in a stable condition. He was counseled extensively regarding alcohol cessation. He was also counseled regarding compliance with his home medication as he admitted he did not take his insulin for the past 5 days. He was advised to follow-up with his PCP and ophthalmology for regular diabetic eye exam. Patient will be discharged home in a stable condition. For further details about this hospital stay please refer to the electronic chart. Patient Condition at Discharge: Serious Plan - Discharge Summary Discharge Rx Participant: No New Discharge Prescriptions: Continue Pantoprazole Sodium [Protonix] 40 mg PO DAILY INSULIN LISPRO (HumaLOG) [humaLOG] See Protocol SQ AC-TID ALPRAZolam [Xanax] 0.25 mg PO DAILY PRN PRN Reason: Anxiety traZODone HCL 50 mg PO HS PRN PRN Reason: Insomnia Insulin Glargine,Hum.rec.anlog [Lantus Solostar Pen] 20 unit SQ HS Discharge Medication List INSULIN LISPRO (HumaLOG) [humaLOG] See Protocol SQ AC-TID 12/30/20 [History] Insulin Glargine,Hum.rec.anlog [Lantus Solostar Pen] 20 unit SQ HS 12/30/20 [History] Pantoprazole Sodium [Protonix] 40 mg PO DAILY 12/30/20 [History] traZODone HCL 50 mg PO HS PRN 12/30/20 [History] ALPRAZolam [Xanax] 0.25 mg PO DAILY PRN 04/14/21 [History] Follow up Appointment(s)/Referral(s): Nick Candelaria MD [Primary Care Provider] - 1-2 days Lalo Simon MD [STAFF PHYSICIAN] - 2 Weeks Discharge Disposition: HOME SELF-CARE
[2021-04-15 11:46] VITALS: BMI 24.3
[2021-04-15 12:19] LABS: Glucose,Whole Blood 328 mg/dL (75-99)
[2021-04-15 17:14] LABS: Hemoglobin A1C 12.6 % (4.0-6.0)
== END 2021-04-15 15:55 | disposition home or self-care (01) | DRG 638 ==
LOC: EC 12:37 → 5NMEDONC 19:40 → 1SOBS 04-15 07:22 → 4SSUR 04-15 15:36
PROVIDERS: ADMIT Internal Medicine; ATTEND Internal Medicine
DX: E11.10 Type 2 diabetes mellitus with ketoacidosis without coma (principal); K86.1 Other chronic pancreatitis; F10.229 Alcohol dependence with intoxication, unspecified; E83.42 Hypomagnesemia; E87.5 Hyperkalemia; Y90.8 Blood alcohol level of 240 mg/100 ml or more; E11.40 Type 2 diabetes mellitus with diabetic neuropathy, unspecified; E87.6 Hypokalemia; F17.200 Nicotine dependence, unspecified, uncomplicated; F41.9 Anxiety disorder, unspecified; Z83.3 Family history of diabetes mellitus; Z79.4 Long term (current) use of insulin; D56.9 Thalassemia, unspecified; Z79.899 Other long term (current) drug therapy
CPT/HCPCS: 36415; 70450; 70496; 70498; 80048; 80051; 80053; 80306; 80320; 81001; 82009; 82565; 82947; 83036; 83690; 83735; 84100; 84484; 84520; 85025; 93005; 96361; 96372; 96374; 96376; 99285

== ENCOUNTER 2021-05-10 14:15 | Inpatient (IN) | payer OTHER ==
[2021-05-10 14:38] LABS: Glucose,Whole Blood 281 mg/dL (75-99)
[2021-05-10] MEDS ORDERED: SODIUM CHLORIDE 0.9% 1,000 ML IV STA ×3 (14:45→19:45)
[2021-05-10 15:29] LABS: Basophils # (A) 0.1 k/uL (0-0.2); Basophils % (A) 1 %; Eosinophils # (A) 0.1 k/uL (0-0.7); Eosinophils % (A) 2 %; HCT 47.6 % (39.0-53.0); HGB 16.4 gm/dL (13.0-17.5); Lymphocytes # (A) 1.8 k/uL (1.0-4.8); Lymphocytes % (A) 22 %; MCH 31.8 pg (25.0-35.0); MCHC 34.4 g/dL (31.0-37.0); MCV 92.3 fL (80.0-100.0); Mean Platelet Volume 8.6; Monocytes # (A) 0.2 k/uL (0-1.0); Monocytes % (A) 2 %; Neutrophils # (A) 5.6 k/uL (1.3-7.7); Neutrophils % (A) 70 %; Platelet Count 336 k/uL (150-450); RBC 5.15 m/uL (4.30-5.90); RDW 13.3 % (11.5-15.5)
[2021-05-10 15:39] LABS: Appearance,Urine Clear (Clear); Bilirubin,Urine Negative (Negative); Blood,Urine Trace (Negative); Color,Urine Light Yellow; Glucose,Urine (UA) 4+ (Negative); Leukocyte Esterase,Urine Negative (Negative); Nitrite,Urine Negative (Negative); PH, Urine 5.5 (5.0-8.0); Protein,Urine 2+ (Negative); RBC,Urine 1 /hpf (0-5); Specific Gravity,Urine 1.027 (1.001-1.035); Squamous Epithelial Cell,Urine 1 /hpf (0-4); Urobilinogen,Urine <2.0 mg/dL (<2.0); WBC,Urine <1 /hpf (0-5)
[2021-05-10 15:47] LABS: ALT 46 U/L (4-49); AST 36 U/L (17-59); African American GFR (CKD) >90 (>60 ml/min/1.73 sqM); Albumin 4.4 g/dL (3.5-5.0); Alkaline Phosphatase 118 U/L (38-126); Amylase 36 U/L (30-110); Anion Gap 25 mmol/L; Blood Urea Nitrogen 11 mg/dL (9-20); Calcium 8.3 mg/dL (8.4-10.2); Carbon Dioxide 11 mmol/L (22-30); Chloride 103 mmol/L (98-107); Glucose 271 mg/dL (74-99); Lipase 43 U/L (23-300); Magnesium 1.3 mg/dL (1.6-2.3); Non-African American GFR(CKD) >90 (>60 ml/min/1.73 sqM); Potassium 4.1 mmol/L (3.5-5.1); Sodium 139 mmol/L (137-145); Total Bilirubin 1.2 mg/dL (0.2-1.3); Total Protein 6.5 g/dL (6.3-8.2)
[2021-05-10 15:48] LABS: INR 0.9 (<1.2); Prothrombin Time 9.5 sec (9.0-12.0)
[2021-05-10] MEDS ORDERED: ONDANSETRON 4 MG/2 ML VIAL IVP STA (15:55)
[2021-05-10 15:59] LABS: Partial Thromboplastin Time 21.3 sec (22.0-30.0)
[2021-05-10 16:00] LABS: Amphetamine Screen,Urine Not Detected (NotDetected); Barbiturate Screen,Urine Not Detected (NotDetected); Benzodiazepines Screen,Urine Not Detected (NotDetected); Cocaine Screen,Urine Not Detected (NotDetected); Methadone Screen, Urine Not Detected (NotDetected); Opiate Screen,Urine Not Detected (NotDetected); Oxycodone Screen, Urine Not Detected (NotDetected); Phencyclidine Screen,Urine Not Detected (NotDetected); Tricyclic Antidepressant,Urine Not Detected (NotDetected); Urn Cannabinoid Scrn Not Detected (NotDetected)
[2021-05-10 16:01] LABS: Alcohol 233 mg/dL
[2021-05-10] MEDS ORDERED: diphenhydrAMINE 50 MG/ML 1 ML VIAL IVP STA (16:05)
[2021-05-10] MEDS ORDERED: MORPHINE SULFATE 4 MG/ML SYRINGE IVP STA (16:05)
[2021-05-10] MEDS ORDERED: FAMOTIDINE 20 MG/2 ML VIAL IV STA (16:05)
[2021-05-10 16:06] LABS: Ketones,Urine 4+ (Negative)
[2021-05-10] MEDS ORDERED: MAGNESIUM SULFATE-D5W PMX 1 GM in DEXTROSE/WATER 1 100ML.BAG IVPB ONE (16:06)
[2021-05-10] MEDS ORDERED: THIAMINE 100 MG/ML 2 ML VIAL IM STA (16:08)
[2021-05-10] MEDS ORDERED: LORazepam 2 MG/ML INJ IV PRN ×2 (16:08)
[2021-05-10] MEDS ORDERED: ONDANSETRON 4 MG/2 ML VIAL IVP PRN (16:49)
[2021-05-10] MEDS ORDERED: NALOXONE 0.4 MG/ML 1 ML VIAL IV PRN (16:49)
[2021-05-10] MEDS ORDERED: IBUPROFEN 400 MG TAB PO PRN (16:49)
[2021-05-10] MEDS: SODIUM CHLORIDE 0.9% 1,000 ML IV SCH (17:48)
[2021-05-10 18:25] LABS: Glucose,Whole Blood 239 mg/dL (75-99)
[2021-05-10] MEDS: INSULIN ASPART (NovoLOG) 100 UNIT/ML VIAL SQ SCH ×2 (19:28→20:11)
[2021-05-10] MEDS ORDERED: TEMAZEPAM 15 MG CAP PO PRN (19:57)
[2021-05-10 20:06] LABS: Glucose,Whole Blood 233 mg/dL (75-99)
[2021-05-10] MEDS: HEPARIN SODIUM,PORCINE/PF 5,000 UNIT/0.5 ML SYRINGE SQ SCH (20:13)
--- NOTE | 2021-05-10 20:32 | ED ---
General Adult HPI - General Chief complaint: Nausea/Vomiting/Diarrhea Stated complaint: Blurry vision Time Seen by Provider: 05/10/21 14:42 Source: patient, RN notes reviewed, old records reviewed Mode of arrival: ambulatory Limitations: no limitations - History of Present Illness Initial comments: I evaluated the patient was placed in a room. Patient is a 40-year-old male with past medical history remarkable for alcohol abuse, history of focal withd rawals and delirium tremens, poorly controlled diabetes, as well as intermittent visual deficits on his diabetes is uncontrolled or when he is going through alcoholic ketoacidosis presents emergency Department believing he is going through alcoholic ketoacidosis. Patient is been on a 4 day binge of alcohol. His notices vision is seeing "stars." This typically happens when his alcoholic ketoacidosis is occurring. I did discuss with him as I saw him last time he presents emergency department for this is similar to his prior episodes and he states yes. They self resolved. Patient has been complaining of nausea as well as persistent vomiting over the last few days as well. His chronic abdominal pain that is slightly worsening epigastric region. Denies any dysuria or hematuria. Denies any headaches, falls, weakness, numbness. Denies any chest pain. Patient otherwise has no acute complaints at this time. He does endorse drinking a lot of alcohol today. Denies any fevers, chills, cough. - Related Data Home Medications Medication Instructions Recorded Confirmed INSULIN LISPRO (HumaLOG) [humaLOG] See Protocol SQ AC-TID 12/30/20 05/10/21 Insulin Glargine,Hum.rec.anlog 20 unit SQ HS 12/30/20 05/10/21 [Lantus Solostar Pen] Pantoprazole Sodium [Protonix] 40 mg PO DAILY 12/30/20 05/10/21 traZODone HCL 50 mg PO HS PRN 12/30/20 05/10/21 ALPRAZolam [Xanax] 0.25 mg PO DAILY PRN 04/14/21 05/10/21 Magnesium Oxide 400 mg PO DAILY 05/10/21 05/10/21 Allergies Allergy/AdvReac Type Severity Reaction Status Date / Time No Known Allergies Allergy Verified 05/10/21 16:43 Review of Systems ROS Statement: Those systems with pertinent positive or pertinent negative responses have been documented in the HPI. Review of Systems: CONST: Denies fever EYES: Endorses "stars in addition." Which is chronic. ENT: Denies nasal congestion C/V: Denies Chest pain RESP: Denies shortness of breath GI: Endorses abdominal pain, nausea, vomiting : Denies dysuria SKIN: Denies rash. MSK: Denies joint pain. NEURO: Denies headache ROS Other: All systems not noted in ROS Statement are negative. Past Medical History Past Medical History: Diabetes Mellitus, GERD/Reflux Additional Past Medical History / Comment(s): IDDM pt states he has been told he is type 1 and told he is type II, neuropathy occasionally in bilateral toes/fingers, ETOH abuse, past DT's when withdrawing from alcohol, chronic pancreatitis History of Any Multi-Drug Resistant Organisms: None Reported Past Surgical History: No Surgical Hx Reported Past Anesthesia/Blood Transfusion Reactions: Unable to Obtain Additional Past Anesthesia/Blood Transfusion Reaction / Comment(s): Pt has never had surgery. Past Psychological History: Anxiety Smoking Status: Current every day smoker, Light tobacco smoker Past Alcohol Use History: Abuse, Daily Past Drug Use History: None Reported - Past Family History Father Family Medical History: Diabetes Mellitus Mother History Unknown: Yes General Exam - General Exam Comments Initial Comments: General: His acutely toxic alcohol. HEAD: Normal with no signs of head trauma. EYES: PERRLA, EOMI, conjunctiva normal, no discharge. Pupils are 3 mm and equal bilaterally. ENT: Hearing grossly intact, normal oropharynx. Dry mucous membranes. RESPIRATORY: Clear breath sounds bilaterally. No wheezes, rales, or rhonchi. C/V: Mildly tachycardic in triage but currently is not tachycardic. Regular rhythm. S1 and S2 auscultated. No peripheral edema. Peripheral pulses are 2+ intact throughout. ABD: Abdomen soft, nondistended. Patient is tender palpation epigastric region. There is no guarding. No peritoneal signs. No rebound tenderness. No CVA tenderness to percussion. EXT: Normal range of motion, no obvious deformity SKIN: No rashes or lesions observed on exposed skin. NEURO: Alert and oriented 4. Cranial nerves II-12 appear to be intact. No focal sensory strength deficits. Patient's visual acuity appears to be within normal limits, and states that his symptoms appear to be more or less intermittent. He is able to ambulate without difficulty. He currently is not tremulous. Patient currently does not appear to be going through alcohol withdrawals.Patient currently is a tremulous. There are No tongue fasciculations. Limitations: no limitations Course Vital Signs 05/10/21 05/10/21 05/10/21 14:31 15:20 15:30 Temperature 97.9 F Pulse Rate 118 H 100 Respiratory 18 Rate Blood Pressure 108/74 126/86 O2 Sat by Pulse 95 100 96 Oximetry 05/10/21 16:00 Temperature Pulse Rate 104 H Respiratory Rate Blood Pressure 115/91 O2 Sat by Pulse 97 Oximetry Medical Decision Making - Medical Decision Making Based on patient's presentation and physical exam, I am concerned for acute alcohol intoxication as well as possible alcohol ketoacidosis versus DKA. Patient's visual field changes appear to be chronic as this is similar to his prior presentation when he received CT and CTA imaging which revealed no reason for his symptoms. He did not follow-up with ophthalmology. His visual changes are likely secondary to his poorly controlled diabetes. He does appear to be dehydrated. We will obtain basic laboratory studies patient will be started on 1 L fluid bolus. Urinalysis also be obtained. Tox workup will be obtained including UDS as well as alcohol level. Patient was in agreement this plan. COVID-19 swab will be obtained. He'll be connected to continuous cardiac monitoring while is here in the department. He will be started on 1 L fluid bolus as well as IV Zofran, Benadryl, Pepcid, morphine. Patient was in agreement this plan. [place] protocol with Ativan was ordered for the patient as well. He currently does not appear to be in acute alcohol withdrawals but he does have a history of them. Laboratory studies are remarkable for an anion gap metabolic acidosis, likely secondary to acute alcohol intoxication as alcohol level is 250 and acute lactic acidosis which is likely secondary to significant dehydration. Lactic acid is 6.3. I have no suspicion for acute infection at this time, however we will obtain blood cultures. I will hold off on starting patient on antibiotics as there is no source. Does not appear to have an acute infection. This is all likely secondary to his acute dehydration. Patient is hypomagnesemia 1.3 which was replenished. Patient's urinalysis revealed urine ketones as well as urine glucose. Patient does not appear to be in DKA, as his glucose level is within normal limits. This is likely alcoholic ketoacidosis with an elevated lactate and 4+ ketones in the urine as well as acute alcohol intoxication. Patient is Covid negative. On reevaluation come patient is feeling improved, and I will provide him with further fluid supplementation. However due to his persistent abdominal pain, we will obtain a CT abdomen and pelvis throughout any acute intra-abdominal pathology at this time, however have loss patient. Patient was in agreement this plan. There was a delay in obtaining a CT secondary to the emergency department volume with the CT scanner. CT abdomen and pelvis was obtained and completed, however report is still pending at this time. I spoke with the admitting team under Dr. López who accepted the admission patient will be admitted to telemetry bed in serous condition for acute alcohol intoxication with concern for potential for alcohol withdrawal, acute alcoholic ketoacidosis, acute dehydration. He was in agreement this plan. CT abdomen and pelvis was read following admission and showed showed no acute intra-abdominal process. He was remarkable for chronic pancreatitis and may be a small pseudocyst formation. There is fatty infiltration of the liver. - Lab Data Result diagrams: 05/10/21 15:14 05/10/21 15:14 Lab Results 05/10/21 05/10/21 05/10/21 Range/Units 14:37 15:14 15:14 WBC 8.0 (3.8-10.6) k/uL RBC 5.15 (4.30-5.90) m/uL Hgb 16.4 (13.0-17.5) gm/dL Hct 47.6 (39.0-53.0) % MCV 92.3 (80.0-100.0) fL MCH 31.8 (25.0-35.0) pg MCHC 34.4 (31.0-37.0) g/dL RDW 13.3 (11.5-15.5) % Plt Count 336 (150-450) k/uL MPV 8.6 Neutrophils % 70 % Lymphocytes % 22 % Monocytes % 2 % Eosinophils % 2 % Basophils % 1 % Neutrophils # 5.6 (1.3-7.7) k/uL Lymphocytes # 1.8 (1.0-4.8) k/uL Monocytes # 0.2 (0-1.0) k/uL Eosinophils # 0.1 (0-0.7) k/uL Basophils # 0.1 (0-0.2) k/uL PT (9.0-12.0) sec INR (<1.2) APTT (22.0-30.0) sec Sodium 139 (137-145) mmol/L Potassium 4.1 (3.5-5.1) mmol/L Chloride 103 (98-107) mmol/L Carbon Dioxide 11 L (22-30) mmol/L Anion Gap 25 mmol/L BUN 11 (9-20) mg/dL Creatinine 0.62 L (0.66-1.25) mg/dL Est GFR (CKD-EPI)AfAm >90 (>60 ml/min/1.73 sqM) Est GFR (CKD-EPI)NonAf >90 (>60 ml/min/1.73 sqM) Glucose 271 H (74-99) mg/dL POC Glucose (mg/dL) 281 H (75-99) mg/dL POC Glu Record Clerk Salesperson ID Geronimo Jacobo Lactic Ac Sepsis Rflx Plasma Lactic Acid Bruno (0.7-2.0) mmol/L Calcium 8.3 L (8.4-10.2) mg/dL Magnesium 1.3 L (1.6-2.3) mg/dL Total Bilirubin 1.2 (0.2-1.3) mg/dL AST 36 (17-59) U/L ALT 46 (4-49) U/L Alkaline Phosphatase 118 (38-126) U/L Total Protein 6.5 (6.3-8.2) g/dL Albumin 4.4 (3.5-5.0) g/dL Amylase 36 (30-110) U/L Lipase 43 (23-300) U/L Urine Color Urine Appearance (Clear) Urine pH (5.0-8.0) Ur Specific Minford (1.001-1.035) Urine Protein (Negative) Urine Glucose (UA) (Negative) Urine Ketones (Negative) Urine Blood (Negative) Urine Nitrite (Negative) Urine Bilirubin (Negative) Urine Urobilinogen (<2.0) mg/dL Ur Leukocyte Esterase (Negative) Urine RBC (0-5) /hpf Urine WBC (0-5) /hpf Ur Squamous Epith Cells (0-4) /hpf Urine Opiates Screen (NotDetected) Ur Oxycodone Screen (NotDetected) Urine Methadone Screen (NotDetected) Ur Propoxyphene Screen (NotDetected) Ur Barbiturates Screen (NotDetected) U Tricyclic Antidepress (NotDetected) Ur Phencyclidine Scrn (NotDetected) Ur Amphetamines Screen (NotDetected) U Methamphetamines Scrn (NotDetected) U Benzodiazepines Scrn (NotDetected) Urine Cocaine Screen (NotDetected) U Marijuana (THC) Screen (NotDetected) Serum Alcohol 233 H* mg/dL 05/10/21 05/10/21 05/10/21 Range/Units 15:14 15:14 15:20 WBC (3.8-10.6) k/uL RBC (4.30-5.90) m/uL Hgb (13.0-17.5) gm/dL Hct (39.0-53.0) % MCV (80.0-100.0) fL MCH (25.0-35.0) pg MCHC (31.0-37.0) g/dL RDW (11.5-15.5) % Plt Count (150-450) k/uL MPV Neutrophils % % Lymphocytes % % Monocytes % % Eosinophils % % Basophils % % Neutrophils # (1.3-7.7) k/uL Lymphocytes # (1.0-4.8) k/uL Monocytes # (0-1.0) k/uL Eosinophils # (0-0.7) k/uL Basophils # (0-0.2) k/uL PT 9.5 (9.0-12.0) sec INR 0.9 (<1.2) APTT 21.3 L (22.0-30.0) sec Sodium (137-145) mmol/L Potassium (3.5-5.1) mmol/L Chloride (98-107) mmol/L Carbon Dioxide (22-30) mmol/L Anion Gap mmol/L BUN (9-20) mg/dL Creatinine (0.66-1.25) mg/dL Est GFR (CKD-EPI)AfAm (>60 ml/min/1.73 sqM) Est GFR (CKD-EPI)NonAf (>60 ml/min/1.73 sqM) Glucose (74-99) mg/dL POC Glucose (mg/dL) (75-99) mg/dL POC Glu Record Clerk Salesperson ID Lactic Ac Sepsis Rflx Plasma Lactic Acid Bruno 6.3 H* (0.7-2.0) mmol/L Calcium (8.4-10.2) mg/dL Magnesium (1.6-2.3) mg/dL Total Bilirubin (0.2-1.3) mg/dL AST (17-59) U/L ALT (4-49) U/L Alkaline Phosphatase (38-126) U/L Total Protein (6.3-8.2) g/dL Albumin (3.5-5.0) g/dL Amylase (30-110) U/L Lipase (23-300) U/L Urine Color Light Yellow Urine Appearance Clear (Clear) Urine pH 5.5 (5.0-8.0) Ur Specific Minford 1.027 (1.001-1.035) Urine Protein 2+ H (Negative) Urine Glucose (UA) 4+ H (Negative) Urine Ketones 4+ H (Negative) Urine Blood Trace H (Negative) Urine Nitrite Negative (Negative) Urine Bilirubin Negative (Negative) Urine Urobilinogen <2.0 (<2.0) mg/dL Ur Leukocyte Esterase Negative (Negative) Urine RBC 1 (0-5) /hpf Urine WBC <1 (0-5) /hpf Ur Squamous Epith Cells 1 (0-4) /hpf Urine Opiates Screen Not Detected (NotDetected) Ur Oxycodone Screen Not Detected (NotDetected) Urine Methadone Screen Not Detected (NotDetected) Ur Propoxyphene Screen Not Detected (NotDetected) Ur Barbiturates Screen Not Detected (NotDetected) U Tricyclic Antidepress Not Detected (NotDetected) Ur Phencyclidine Scrn Not Detected (NotDetected) Ur Amphetamines Screen Not Detected (NotDetected) U Methamphetamines Scrn Not Detected (NotDetected) U Benzodiazepines Scrn Not Detected (NotDetected) Urine Cocaine Screen Not Detected (NotDetected) U Marijuana (THC) Screen Not Detected (NotDetected) Serum Alcohol mg/dL 05/10/21 Range/Units 16:01 WBC (3.8-10.6) k/uL RBC (4.30-5.90) m/uL Hgb (13.0-17.5) gm/dL Hct (39.0-53.0) % MCV (80.0-100.0) fL MCH (25.0-35.0) pg MCHC (31.0-37.0) g/dL RDW (11.5-15.5) % Plt Count (150-450) k/uL MPV Neutrophils % % Lymphocytes % % Monocytes % % Eosinophils % % Basophils % % Neutrophils # (1.3-7.7) k/uL Lymphocytes # (1.0-4.8) k/uL Monocytes # (0-1.0) k/uL Eosinophils # (0-0.7) k/uL Basophils # (0-0.2) k/uL PT (9.0-12.0) sec INR (<1.2) APTT (22.0-30.0) sec Sodium (137-145) mmol/L Potassium (3.5-5.1) mmol/L Chloride (98-107) mmol/L Carbon Dioxide (22-30) mmol/L Anion Gap mmol/L BUN (9-20) mg/dL Creatinine (0.66-1.25) mg/dL Est GFR (CKD-EPI)AfAm (>60 ml/min/1.73 sqM) Est GFR (CKD-EPI)NonAf (>60 ml/min/1.73 sqM) Glucose (74-99) mg/dL POC Glucose (mg/dL) (75-99) mg/dL POC Glu Record Clerk Salesperson ID Lactic Ac Sepsis Rflx Y Plasma Lactic Acid Bruno (0.7-2.0) mmol/L Calcium (8.4-10.2) mg/dL Magnesium (1.6-2.3) mg/dL Total Bilirubin (0.2-1.3) mg/dL AST (17-59) U/L ALT (4-49) U/L Alkaline Phosphatase (38-126) U/L Total Protein (6.3-8.2) g/dL Albumin (3.5-5.0) g/dL Amylase (30-110) U/L Lipase (23-300) U/L Urine Color Urine Appearance (Clear) Urine pH (5.0-8.0) Ur Specific M[place] (1.001-1.035) Urine Protein (Negative) Urine Glucose (UA) (Negative) Urine Ketones (Negative) Urine Blood (Negative) Urine Nitrite (Negative) Urine Bilirubin (Negative) Urine Urobilinogen (<2.0) mg/dL Ur Leukocyte Esterase (Negative) Urine RBC (0-5) /hpf Urine WBC (0-5) /hpf Ur Squamous Epith Cells (0-4) /hpf Urine Opiates Screen (NotDetected) Ur Oxycodone Screen (NotDetected) Urine Methadone Screen (NotDetected) Ur Propoxyphene Screen (NotDetected) Ur Barbiturates Screen (NotDetected) U Tricyclic Antidepress (NotDetected) Ur Phencyclidine Scrn (NotDetected) Ur Amphetamines Screen (NotDetected) U Methamphetamines Scrn (NotDetected) U Benzodiazepines Scrn (NotDetected) Urine Cocaine Screen (NotDetected) U Marijuana (THC) Screen (NotDetected) Serum Alcohol mg/dL Disposition Clinical Impression: Alcoholic ketoacidosis, Alcohol intoxication, Nausea and vomiting, Uncontrolled diabetes mellitus, Dehydration, Chronic abdominal pain, Vision abnormalities Disposition: ADMITTED IP TO THIS [facility] Condition: Serious
--- NOTE | 2021-05-10 20:36 | CT ---
EXAMINATION TYPE: CT abdomen pelvis w con DATE OF EXAM: 05/10/2021 COMPARISON: None HISTORY: abd pain CT DLP: 958 mGycm Automated exposure control for dose reduction was used. CONTRAST: Performed with IV Contrast, patient injected with 100 mL of Isovue 300. Images obtained from the diaphragm to the floor the pelvis with IV contrast. Lung bases are clear. There is no pleural effusion. Heart size is normal. There is no pericardial eff usion. There is fatty infiltration of the liver. Spleen is intact. Stomach is intact. There is no dilated du cts. There is calcifications in the pancreas consistent with chronic pancreatitis. There is thin wall 5.5 cm cyst in the tail of the pancreas that is probably a pseudocyst. There is no adrenal mass. Kidneys show satisfactory contrast opacification. There is no hydronephrosi s. Delayed images show normal renal excretion. There is no retroperitoneal adenopathy. Bladder disten ds smoothly. There is no inguinal hernia. There is no free fluid in the pelvis. There is no mesenteric edema. There is no ascites or free air. There is no bowel obstruction. Lumbar vertebra appear intact. There is no compression fracture. Posterior elements are intact. The bony pel vis is intact. Hip joints appear intact. Appendix is not seen. There is no sign of thickened appendix . IMPRESSION: No acute abnormality of the abdomen pelvis. Fatty infiltration of the liver. Changes in the pancreas consistent with chronic pancreatitis and pseudocyst formation.
[2021-05-10] MEDS: LORazepam 2 MG/ML INJ IV PRN (20:51)
[2021-05-10] MEDS: INSULIN DETEMIR (LEVEMIR) 100 UNIT/ML SYR SQ SCH (20:52)
[2021-05-10] MEDS: NICOTINE 14MG/24HR PATCH TRANSDERM SCH (20:52)
[2021-05-10 21:00] LABS: ALT 47 U/L (4-49); AST 37 U/L (17-59); African American GFR (CKD) >90 (>60 ml/min/1.73 sqM); Albumin 4.7 g/dL (3.5-5.0); Albumin/Globulin Ratio 2.2; Alkaline Phosphatase 114 U/L (38-126); Blood Urea Nitrogen 10 mg/dL (9-20); Calcium 8.7 mg/dL (8.4-10.2); Carbon Dioxide 11 mmol/L (22-30); Globulin 2.1 g/dL; Glucose 240 mg/dL (74-99); Non-African American GFR(CKD) >90 (>60 ml/min/1.73 sqM); Total Bilirubin 1.2 mg/dL (0.2-1.3); Total Protein 6.8 g/dL (6.3-8.2)
[2021-05-10 21:05] LABS: Sodium 136 mmol/L (137-145)
--- NOTE | 2021-05-10 21:10 | HP ---
HISTORY AND PHYSICAL DATE OF SERVICE: 05/10/2021 CHIEF COMPLAINT: Alcohol withdrawal symptoms. HISTORY OF PRESENT ILLNESS: This 40-year-old gentleman with a past history of diabetes, DKA, GERD, pancreatitis, history of anxiety, history of significant alcohol intake, presented with features of alcohol withdrawal symptoms and delusions and hallucinations. There is no history of fever, rigors or chills at this time. The patient's lactic acid is elevated. Alcohol level was also elevated at 259. CBC was within normal limits. There is no history of fever, rigors. No history of headache, loss of consciousness, seizures. PAST MEDICAL HISTORY: Diabetes type 2, history of GERD, history of anxiety, EtOH. MEDICATIONS: Trazodone, Protonix, magnesium oxide, Lantus, Humalog, Xanax. ALLERGIES: None. FAMILY HISTORY: History of diabetes in the family. SOCIAL HISTORY: History of alcohol as mentioned earlier. REVIEW OF SYSTEMS: ENT: No diminished hearing. No diminished vision. CARDIOVASCULAR system: As mentioned earlier. RESPIRATORY: As mentioned earlier. GI no nausea or vomiting. no dysuria. NERVOUS SYSTEM: No numbness, weakness. ALLERGY/IMMUNOLOGY: No asthma or hayfever. MUSCULOSKELETAL as mentioned earlier. HEMATOLOGY/ONCOLOGY: No history of anemia. ENDOCRINE: As mentioned earlier. CONSTITUTIONAL: As mentioned earlier. DERMATOLOGY: Negative. RHEUMATOLOGY: Negative. PSYCHIATRIC: As mentioned earlier. PHYSICAL EXAMINATION: Alert and oriented times three. Pulse 104. Blood pressure 150/91. Respiratory rate 18. Temperature 97.9, pulse ox 94% on room air. HEENT: Conjunctivae normal. Oral mucosa moist. NECK is no jugular venous distention. No carotid bruit. No lymph node enlargement. CARDIOVASCULAR systems: S1, S2. RESPIRATION: Breath sounds diminished in the bases. No rhonchi. No crackles. ABDOMEN: Soft. Nontender. LEGS: No edema. No swelling. NERVOUS SYSTEM: No focal deficits. Mild diffuse tremors present. SKIN: No ulcers, rashes or bleeding. JOINTS: No active deforming arthropathy. LABS: CBC within normal limits. APTT 21.3. CO2 is 11. Anion gap is 25. Glucose is 239. Alcohol is 233. ASSESSMENT: 1. Acute alcohol withdrawal and acute delirium tremens. 2. Diabetes mellitus type 2 uncontrolled with hyperglycemia. 3. Acidosis, rule out diabetic ketoacidosis, alcoholic ketoacidosis. 4. Gastroesophageal reflux disease. 5. History of pancreatitis previously. 6. History of peripheral neuropathy. 7. Chronic pancreatitis. 8. History of anxiety. 9. History of nicotine dependence. 10.FULL CODE. RECOMMENDATIONS AND DISCUSSION: This 40-year-old gentleman who presented with multiple complex medical issues, we will monitor the patient closely. Continue the current medications, management and symptomatic treatment. I recommend serum acetones and as well as continue with monitor blood glucose closely. Otherwise, resume the home medications and as well as continue with CIWA protocol. Prognosis guarded because of multiple complex medical issues. Further recommendations to follow. DT precautions. MMODL / IJN: [id number] /
[2021-05-10] MEDS: traZODone HCL 50 MG TAB PO PRN (21:42)
[2021-05-10 22:02] LABS: Anion Gap 24 mmol/L; Chloride 101 mmol/L (98-107)
[2021-05-11] MEDS: SODIUM CHLORIDE 0.9% 1,000 ML IV SCH ×4 (01:19→22:43)
[2021-05-11 02:03] LABS: Glucose,Whole Blood 265 mg/dL (75-99)
[2021-05-11] MEDS: LORazepam 2 MG/ML INJ IV PRN ×6 (04:20→20:38)
[2021-05-11 05:52] LABS: Basophils % (A) 1 %; Eosinophils # (A) 0.1 k/uL (0-0.7); Eosinophils % (A) 3 %; HCT 39.7 % (39.0-53.0); HGB 13.6 gm/dL (13.0-17.5); Lymphocytes # (A) 1.6 k/uL (1.0-4.8); Lymphocytes % (A) 40 %; MCH 31.2 pg (25.0-35.0); MCHC 34.2 g/dL (31.0-37.0); MCV 91.2 fL (80.0-100.0); Mean Platelet Volume 7.7; Monocytes # (A) 0.2 k/uL (0-1.0); Monocytes % (A) 6 %; Neutrophils % (A) 49 %; Platelet Count 193 k/uL (150-450); RBC 4.35 m/uL (4.30-5.90); RDW 13.1 % (11.5-15.5); WBC 4.1 k/uL (3.8-10.6)
[2021-05-11 07:11] LABS: Glucose,Whole Blood 185 mg/dL (75-99)
[2021-05-11] MEDS: HYDROcodone/APAP 5-325MG 1 EACH TAB PO PRN ×3 (07:35→21:16)
[2021-05-11] MEDS: NICOTINE 14MG/24HR PATCH TRANSDERM SCH (07:35)
[2021-05-11] MEDS: MAGNESIUM OXIDE 400 MG TAB PO SCH (07:36)
[2021-05-11] MEDS: FOLIC ACID 1 MG TAB PO SCH (07:36)
[2021-05-11] MEDS: THIAMINE 100 MG TAB PO SCH ×2 (07:36→18:12)
[2021-05-11] MEDS: PANTOPRAZOLE 40 MG TABLET PO SCH (07:36)
[2021-05-11] MEDS: HEPARIN SODIUM,PORCINE/PF 5,000 UNIT/0.5 ML SYRINGE SQ SCH ×2 (07:37→19:41)
[2021-05-11] MEDS: MULTIVITAMINS, THERA 1 EACH TAB PO SCH (07:37)
[2021-05-11] MEDS: INSULIN ASPART (NovoLOG) 100 UNIT/ML VIAL SQ SCH ×3 (07:37→18:12)
[2021-05-11 11:35] LABS: Glucose,Whole Blood 210 mg/dL (75-99)
[2021-05-11 17:18] LABS: Glucose,Whole Blood 151 mg/dL (75-99)
[2021-05-11 18:53] LABS: Basophils # (A) 0.1 k/uL (0-0.2); Basophils % (A) 1 %; Eosinophils # (A) 0.2 k/uL (0-0.7); Eosinophils % (A) 2 %; HCT 42.9 % (39.0-53.0); HGB 14.3 gm/dL (13.0-17.5); Lymphocytes # (A) 1.3 k/uL (1.0-4.8); Lymphocytes % (A) 18 %; MCH 31.7 pg (25.0-35.0); MCHC 33.4 g/dL (31.0-37.0); Mean Platelet Volume 8.2; Monocytes # (A) 0.2 k/uL (0-1.0); Monocytes % (A) 3 %; Neutrophils # (A) 5.1 k/uL (1.3-7.7); Neutrophils % (A) 74 %; Platelet Count 173 k/uL (150-450); RBC 4.52 m/uL (4.30-5.90); RDW 12.6 % (11.5-15.5); WBC 6.9 k/uL (3.8-10.6)
[2021-05-11 19:04] LABS: African American GFR (CKD) >90 (>60 ml/min/1.73 sqM); Anion Gap 9 mmol/L; Blood Urea Nitrogen 14 mg/dL (9-20); Calcium 9.4 mg/dL (8.4-10.2); Carbon Dioxide 29 mmol/L (22-30); Chloride 99 mmol/L (98-107); Glucose 205 mg/dL (74-99); Non-African American GFR(CKD) >90 (>60 ml/min/1.73 sqM); Potassium 3.7 mmol/L (3.5-5.1); Sodium 137 mmol/L (137-145)
--- NOTE | 2021-05-11 19:51 | PN ---
PROGRESS NOTE DATE OF SERVICE: 05/11/2021 This 40-year-old gentleman admitted with alcohol withdrawal symptoms is being closely monitored. No chest pain. No palpitations. No fever. PHYSICAL EXAMINATION: Alert and oriented x3. Pulse is 94, blood pressure 140/84, respiration 20, temperature 98 degrees, pulse ox 94% on room air. HEENT: Conjunctivae normal. Oral mucosa moist. NECK: No jugular venous distention. No lymph node enlargement. CARDIOVASCULAR: S1, S2, muffled. No S3, no S4, RESPIRATORY: Diminished breath sounds at the bases. No rhonchi, no crackles. ABDOMEN: Soft, nontender. LEGS: No edema, no swelling. NERVOUS SYSTEM: No focal deficits. LABS: Accu-Cheks 185, 210, 151. ASSESSMENT: 1. Acute alcohol withdrawal and acute delirium tremens. 2. Diabetes mellitus type 2, uncontrolled with hyperglycemia. 3. Acidosis. No evidence of diabetic ketoacidosis. Possibly alcoholic acidosis. 4. Gastroesophageal reflux disease. 5. History of peripheral neuropathy. 6. Chronic pancreatitis. 7. History of anxiety. 8. History of nicotine dependence. 9. FULL CODE. RECOMMENDATIONS AND DISCUSSION: Continue current current medication, continue symptomatic treatment. Otherwise, we will continue to monitor. Repeat labs. Guarded prognosis. Further recommendations to follow. MMODL / IJN: [id number] /
[2021-05-11 20:11] LABS: Glucose,Whole Blood 152 mg/dL (75-99)
[2021-05-11] MEDS: INSULIN DETEMIR (LEVEMIR) 100 UNIT/ML SYR SQ SCH (21:17)
[2021-05-11] MEDS ORDERED: METOCLOPRAMIDE 5 MG/ML 2 ML VIAL IVP PRN (22:29)
[2021-05-11] MEDS ORDERED: ONDANSETRON 4 MG/2 ML VIAL IVP PRN (22:29)
[2021-05-11] MEDS: MORPHINE SULFATE 2 MG/ML SYRINGE IVP PRN (23:44)
[2021-05-12] MEDS: LORazepam 2 MG/ML INJ IV PRN ×3 (02:45→08:44)
[2021-05-12] MEDS: MORPHINE SULFATE 2 MG/ML SYRINGE IVP PRN (04:58)
[2021-05-12] MEDS: SODIUM CHLORIDE 0.9% 1,000 ML IV SCH ×2 (06:09→17:23)
[2021-05-12 06:35] LABS: Basophils % (A) 1 %; Eosinophils # (A) 0.1 k/uL (0-0.7); Eosinophils % (A) 4 %; HCT 39.4 % (39.0-53.0); HGB 13.1 gm/dL (13.0-17.5); Lymphocytes # (A) 1.4 k/uL (1.0-4.8); Lymphocytes % (A) 35 %; MCH 31.5 pg (25.0-35.0); MCHC 33.3 g/dL (31.0-37.0); MCV 94.3 fL (80.0-100.0); Mean Platelet Volume 8.1; Monocytes # (A) 0.2 k/uL (0-1.0); Monocytes % (A) 5 %; Neutrophils # (A) 2.1 k/uL (1.3-7.7); Neutrophils % (A) 53 %; Platelet Count 148 k/uL (150-450); RBC 4.18 m/uL (4.30-5.90); RDW 12.6 % (11.5-15.5); WBC 3.9 k/uL (3.8-10.6)
[2021-05-12 06:53] LABS: Glucose,Whole Blood 139 mg/dL (75-99)
[2021-05-12] MEDS: NICOTINE 14MG/24HR PATCH TRANSDERM SCH (08:17)
[2021-05-12] MEDS: INSULIN ASPART (NovoLOG) 100 UNIT/ML VIAL SQ SCH ×3 (08:17→17:22)
[2021-05-12] MEDS: MAGNESIUM OXIDE 400 MG TAB PO SCH (08:17)
[2021-05-12] MEDS: HEPARIN SODIUM,PORCINE/PF 5,000 UNIT/0.5 ML SYRINGE SQ SCH ×2 (08:17→20:28)
[2021-05-12] MEDS: PANTOPRAZOLE 40 MG TABLET PO SCH (08:17)
[2021-05-12] MEDS: THIAMINE 100 MG TAB PO SCH ×2 (08:17→17:23)
[2021-05-12 10:54] LABS: African American GFR (CKD) 147.8 (60.0-200.0); Anion Gap 12.5 mmol/L (4.00-12.00); BUN/Creat Ratio 18.33 Ratio (12.00-20.00); Carbon Dioxide 27.5 mmol/L (21.6-31.8); Non-African American GFR(CKD) 127.5 (60.0-200.0); Potassium 3.4 mmol/L (3.5-5.5)
[2021-05-12] MEDS: HYDROcodone/APAP 5-325MG 1 EACH TAB PO PRN ×3 (11:33→22:35)
[2021-05-12] MEDS: LORazepam 1 MG TAB PO PRN ×4 (11:33→20:27)
[2021-05-12] MEDS: FOLIC ACID 1 MG TAB PO SCH (11:33)
[2021-05-12 11:36] LABS: Glucose,Whole Blood 173 mg/dL (75-99)
[2021-05-12] MEDS: MULTIVITAMINS, THERA 1 EACH TAB PO SCH (12:12)
[2021-05-12 16:38] LABS: Amylase <30 U/L (30-110); Lipase 17 U/L (23-300)
--- NOTE | 2021-05-12 16:59 | PN ---
PROGRESS NOTE DATE OF SERVICE: 05/12/2021 This 40-year-old gentleman who was admitted with acute alcohol withdrawal and acute delirium tremens is being closely monitored. No chest pain. No palpitations. No fever. PHYSICAL EXAMINATION: Alert and oriented x3.. Pulse 70, blood pressure 146/90, respiration 18, temperature 98.1, pulse ox 97% on room air. HEENT: Conjunctivae normal. NECK: No jugular venous distention. CARDIOVASCULAR: S1, S2 muffled. RESPIRATION: Breath sounds diminished at the bases. Scattered rhonchi and crackles. ABDOMEN: Soft. NERVOUS SYSTEM: Diffuse tremors present. LABS: Glucose 138, 173. Potassium 3.4. ASSESSMENT: 1. Acute alcohol withdrawal and acute delirium tremens. 2. Diabetes mellitus, type 2, uncontrolled with hyperglycemia. 3. Acute gastritis. 4. Acidosis. No evidence of diabetic ketoacidosis; possible alcoholic ketosis. 5. Gastroesophageal reflux disease. 6. Hypokalemia. 7. History of peripheral neuropathy. 8. Chronic pancreatitis. 9. History of anxiety. 10.History of nicotine dependence. 11.FULL CODE. RECOMMENDATIONS AND DISCUSSION: I recommend to continue current medications, continue with symptomatic treatment. Patient had an episode of vomiting. I would recommend amylase and lipase evaluation also. Otherwise, continue to monitor. Further recommendations to follow. MMODL / IJN: [id number] /
[2021-05-12 17:11] LABS: Glucose,Whole Blood 256 mg/dL (75-99)
[2021-05-12 19:59] LABS: Glucose,Whole Blood 212 mg/dL (75-99)
[2021-05-12] MEDS: INSULIN DETEMIR (LEVEMIR) 100 UNIT/ML SYR SQ SCH (20:28)
[2021-05-12] MEDS: traZODone HCL 50 MG TAB PO PRN (22:34)
[2021-05-13] MEDS: LORazepam 1 MG TAB PO PRN ×2 (05:19→07:59)
[2021-05-13 05:26] LABS: Basophils % (A) 1 %; Eosinophils # (A) 0.1 k/uL (0-0.7); Eosinophils % (A) 3 %; HCT 41.6 % (39.0-53.0); HGB 13.8 gm/dL (13.0-17.5); Lymphocytes # (A) 1.3 k/uL (1.0-4.8); Lymphocytes % (A) 41 %; MCH 31.8 pg (25.0-35.0); MCHC 33.1 g/dL (31.0-37.0); Mean Platelet Volume 8.5; Monocytes # (A) 0.1 k/uL (0-1.0); Monocytes % (A) 4 %; Neutrophils # (A) 1.6 k/uL (1.3-7.7); Neutrophils % (A) 50 %; Platelet Count 145 k/uL (150-450); RBC 4.33 m/uL (4.30-5.90); RDW 12.6 % (11.5-15.5); WBC 3.1 k/uL (3.8-10.6)
[2021-05-13 05:27] VITALS: BP 118/80; PULSE 62; RESP 18; TEMP 97.5
[2021-05-13] MEDS: SODIUM CHLORIDE 0.9% 1,000 ML IV SCH ×2 (06:08→07:50)
[2021-05-13 07:16] LABS: Glucose,Whole Blood 227 mg/dL (75-99)
[2021-05-13] MEDS: INSULIN ASPART (NovoLOG) 100 UNIT/ML VIAL SQ SCH ×2 (07:49→12:58)
[2021-05-13] MEDS: MULTIVITAMINS, THERA 1 EACH TAB PO SCH (07:49)
[2021-05-13] MEDS: MAGNESIUM OXIDE 400 MG TAB PO SCH (07:49)
[2021-05-13] MEDS: HEPARIN SODIUM,PORCINE/PF 5,000 UNIT/0.5 ML SYRINGE SQ SCH (07:49)
[2021-05-13] MEDS: THIAMINE 100 MG TAB PO SCH (07:49)
[2021-05-13] MEDS: FOLIC ACID 1 MG TAB PO SCH (07:49)
[2021-05-13] MEDS: PANTOPRAZOLE 40 MG TABLET PO SCH (07:49)
[2021-05-13] MEDS: NICOTINE 14MG/24HR PATCH TRANSDERM SCH (07:49)
[2021-05-13] MEDS: HYDROcodone/APAP 5-325MG 1 EACH TAB PO PRN (07:58)
[2021-05-13 11:30] LABS: African American GFR (CKD) 125.1 (60.0-200.0); BUN/Creat Ratio 7.78 Ratio (12.00-20.00); Calcium 9.4 mg/dL (8.7-10.3)
[2021-05-13 12:28] LABS: Glucose,Whole Blood 187 mg/dL (75-99)
== END 2021-05-13 14:10 | disposition home or self-care (01) | DRG 897 ==
LOC: EC 14:15 → 5NMEDONC 16:49
PROVIDERS: ADMIT Internal Medicine; ATTEND Internal Medicine
PROC: HZ2ZZZZ Detoxification Services for Substance Abuse Treatment (ICD-10-PCS; principal; 2021-05-10)
DX: F10.229 Alcohol dependence with intoxication, unspecified (principal); E87.2 Acidosis; K86.1 Other chronic pancreatitis; F10.231 Alcohol dependence with withdrawal delirium; Z20.822 Contact with and (suspected) exposure to COVID-19; E11.65 Type 2 diabetes mellitus with hyperglycemia; E11.42 Type 2 diabetes mellitus with diabetic polyneuropathy; K29.00 Acute gastritis without bleeding; E83.42 Hypomagnesemia; F17.210 Nicotine dependence, cigarettes, uncomplicated; G89.29 Other chronic pain; K21.9 Gastro-esophageal reflux disease without esophagitis; K76.0 Fatty (change of) liver, not elsewhere classified; E88.89 Other specified metabolic disorders; E86.0 Dehydration; F22 Delusional disorders; E87.6 Hypokalemia; Y90.8 Blood alcohol level of 240 mg/100 ml or more; Z79.4 Long term (current) use of insulin; Z79.899 Other long term (current) drug therapy
CPT/HCPCS: 36415; 74177; 80048; 80053; 80306; 80320; 81001; 82009; 82150; 83605; 83690; 83735; 85025; 85610; 85730; 87040; 87635; 96361; 96365; 96375; 99285

== ENCOUNTER 2021-06-14 15:19 | Observation (INO) | payer OTHER ==
[2021-06-14 16:01] LABS: Glucose,Whole Blood 358 mg/dL (75-99)
--- NOTE | 2021-06-14 17:51 | ED ---
Nausea/Vomiting/Diarrhea HPI - General Chief complaint: Nausea/Vomiting/Diarrhea Stated complaint: Diabetic Issue Time Seen by Provider: 06/14/21 15:55 Source: patient Mode of arrival: ambulatory Limitations: no limitations - History of Present Illness Initial comments: 40-year-old male with past medical history of insulin-dependent diabetes presents to the emergency department with concern for DKA. Patient states that he went on an alcohol binge over the last 7 days because his father was hospitalized and he became depressed. He does have a history of significant alcohol abuse. States he's been weaning himself off over the past 3 days. Last drink was around 1 PM this afternoon. Patient has not been taking his insulin due to his increased alcohol consumption. He has been in DKA before. Patient presents with nausea, vomiting. Admits to some abdominal pain and tachycardia. Patient does have one-month supply of his medications however is out of syringes. Patient denies suicidal ideations. No fevers. No other alleviating, precipitating or modifying factors - Related Data Home Medications Medication Instructions Recorded Confirmed INSULIN LISPRO (HumaLOG) [humaLOG] See Protocol SQ AC-TID 12/30/20 06/14/21 Insulin Glargine,Hum.rec.anlog 20 unit SQ HS 12/30/20 06/14/21 [Lantus Solostar Pen] Pantoprazole Sodium [Protonix] 40 mg PO DAILY 12/30/20 06/14/21 traZODone HCL 50 mg PO HS PRN 12/30/20 06/14/21 Magnesium Oxide 400 mg PO DAILY 05/10/21 06/14/21 Previous Rx's Medication Instructions Recorded Folic Acid 1 mg PO DAILY@1200 #30 tab 05/13/21 Multivitamins, Thera [Multivitamin 1 each PO DAILY@1200 #30 tab 05/13/21 (formulary)] Thiamine [Vitamin B-1] 100 mg PO BID-W/MEALS #60 tab 05/13/21 chlordiazePOXIDE HCl [Librium] 25 mg PO TID 3 Days #9 capsule 06/16/21 Allergies Allergy/AdvReac Type Severity Reaction Status Date / Time No Known Allergies Allergy Verified 06/14/21 20:50 Review of Systems ROS Statement: Those systems with pertinent positive or pertinent negative responses have been documented in the HPI. ROS Other: All systems not noted in ROS Statement are negative. Past Medical History Past Medical History: Diabetes Mellitus, GERD/Reflux Additional Past Medical History / Comment(s): IDDM pt states he has been told he is type 1 and told he is type II, neuropathy occasionally in bilateral toes/fingers, ETOH abuse, past DT's when withdrawing from alcohol, chronic pancreatitis History of Any Multi-Drug Resistant Organisms: None Reported Past Surgical History: No Surgical Hx Reported Past Anesthesia/Blood Transfusion Reactions: Unable to Obtain Additional Past Anesthesia/Blood Transfusion Reaction / Comment(s): Pt has never had surgery. Past Psychological History: Anxiety Smoking Status: Vaper Past Alcohol Use History: Abuse, Daily Past Drug Use History: None Reported - Past Family History Father Family Medical History: Diabetes Mellitus Mother History Unknown: Yes General Exam Limitations: no limitations General appearance: alert, in no apparent distress, anxious Head exam: Present: atraumatic, normocephalic, normal inspection Eye exam: Present: normal appearance, PERRL, EOMI. Absent: scleral icterus, conjunctival injection, periorbital swelling ENT exam: Present: normal exam, mucous membranes moist Neck exam: Present: normal inspection. Absent: tenderness, meningismus, l ymphadenopathy Respiratory exam: Present: normal lung sounds bilaterally. Absent: respiratory distress, wheezes, rales, rhonchi, stridor Cardiovascular Exam: Present: normal rhythm, tachycardia, normal heart sounds. Absent: systolic murmur, diastolic murmur, rubs, gallop, clicks GI/Abdominal exam: Present: soft, tenderness (generalized), normal bowel sounds. Absent: distended, guarding, rebound, rigid Extremities exam: Present: normal inspection, full ROM, normal capillary refill. Absent: tenderness, pedal edema, joint swelling, calf tenderness Back exam: Present: normal inspection Neurological exam: Present: alert, oriented X3, CN II-XII intact Psychiatric exam: Present: normal affect, normal mood Skin exam: Present: warm, dry, intact, normal color. Absent: rash Course Vital Signs 06/14/21 06/14/21 06/15/21 15:53 20:54 06:00 Temperature 98.4 F Pulse Rate 120 H 101 H 89 Pulse Rate [ Land Economist ] Respiratory 16 16 17 Rate Blood Pressure 134/96 140/83 117/73 Blood Pressure [Left Arm] O2 Sat by Pulse 97 100 97 Oximetry 06/15/21 06/15/21 06/15/21 09:10 12:45 15:06 Temperature 97.4 F L 97.4 F L Pulse Rate Pulse Rate [ 81 86 87 Land Economist ] Respiratory 16 16 16 Rate Blood Pressure Blood Pressure 119/80 128/84 133/85 [Left Arm] O2 Sat by Pulse 99 99 99 Oximetry Medical Decision Making - Medical Decision Making Upon arrival patient placed in room 21. There are history and physical exam is performed. IV is established and patient is given a 2 L bolus of normal saline. Laboratory studies are conducted. Sodium 133, CO2 9, glucose 349, AST 135, ALT 120. Alk phos 142, magnesium 1.8. Anion gap is 26. Acetone positive. Due to patient's elevated bilirubin of 4.3 years sent over for a picture of his abdomen which demonstrates chronic pancreatitis changes and pseudocyst. Patient will be initiated on an insulin drip. Patient will be admitted to some physicians. P nancyient remained in stable condition awaiting a bed - Lab Data Result diagrams: 06/16/21 06:35 06/16/21 06:35 Lab Results 06/14/21 06/14/21 06/14/21 Range/Units 15:59 18:33 18:33 WBC 4.9 (3.8-10.6) k/uL RBC 5.25 (4.30-5.90) m/uL Hgb 17.0 D (13.0-17.5) gm/dL Hct 49.8 (39.0-53.0) % MCV 94.9 (80.0-100.0) fL MCH 32.4 (25.0-35.0) pg MCHC 34.2 (31.0-37.0) g/dL RDW 14.1 (11.5-15.5) % Plt Count 174 (150-450) k/uL MPV 8.3 Neutrophils % 69 % Lymphocytes % 22 % Monocytes % 5 % Eosinophils % 1 % Basophils % 1 % Neutrophils # 3.4 (1.3-7.7) k/uL Lymphocytes # 1.1 (1.0-4.8) k/uL Monocytes # 0.2 (0-1.0) k/uL Eosinophils # 0.1 (0-0.7) k/uL Basophils # 0.1 (0-0.2) k/uL VBG pH (7.31-7.41) VBG pCO2 (37-51) mmHg VBG HCO3 (24-28) mmol/L Sodium 133 L (137-145) mmol/L Potassium 4.8 (3.5-5.1) mmol/L Chloride 98 (98-107) mmol/L Carbon Dioxide 9 L* (22-30) mmol/L Anion Gap 26 mmol/L BUN 9 (9-20) mg/dL Creatinine 0.82 (0.66-1.25) mg/dL Est GFR (CKD-EPI)AfAm >90 (>60 ml/min/1.73 sqM) Est GFR (CKD-EPI)NonAf >90 (>60 ml/min/1.73 sqM) Glucose 349 H (74-99) mg/dL POC Glucose (mg/dL) 358 H (75-99) mg/dL POC Glu Automobile Mechanic ID Belval, Reema Plasma Lactic Acid Bruno (0.7-2.0) mmol/L Calcium 10.3 H (8.4-10.2) mg/dL Magnesium 1.8 (1.6-2.3) mg/dL Total Bilirubin 4.3 H (0.2-1.3) mg/dL AST 135 H (17-59) U/L ALT 120 H (4-49) U/L Alkaline Phosphatase 142 H (38-126) U/L Total Protein 8.4 H (6.3-8.2) g/dL Albumin 5.5 H (3.5-5.0) g/dL Lipase 53 (23-300) U/L TSH 0.561 (0.465-4.680) mIU/L Urine Color Urine Appearance (Clear) Urine pH (5.0-8.0) Ur Specific [place] (1.001-1.035) Urine Protein (Negative) Urine Glucose (UA) (Negative) Urine Ketones (Negative) Urine Blood (Negative) Urine Nitrite (Negative) Urine Bilirubin (Negative) Urine Urobilinogen (<2.0) mg/dL Ur Leukocyte Esterase (Negative) Urine RBC (0-5) /hpf Urine WBC (0-5) /hpf Ur Squamous Epith Cells (0-4) /hpf Urine Mucus (None) /hpf Serum Alcohol <10 mg/dL Acetone, Qual Positive (Negative) 06/14/21 06/14/21 06/14/21 Range/Units 18:33 18:33 20:08 WBC (3.8-10.6) k/uL RBC (4.30-5.90) m/uL Hgb (13.0-17.5) gm/dL Hct (39.0-53.0) % MCV (80.0-100.0) fL MCH (25.0-35.0) pg MCHC (31.0-37.0) g/dL RDW (11.5-15.5) % Plt Count (150-450) k/uL MPV Neutrophils % % Lymphocytes % % Monocytes % % Eosinophils % % Basophils % % Neutrophils # (1.3-7.7) k/uL Lymphocytes # (1.0-4.8) k/uL Monocytes # (0-1.0) k/uL Eosinophils # (0-0.7) k/uL Basophils # (0-0.2) k/uL VBG pH 7.25 L (7.31-7.41) VBG pCO2 25 L (37-51) mmHg VBG HCO3 10 L (24-28) mmol/L Sodium (137-145) mmol/L Potassium (3.5-5.1) mmol/L Chloride (98-107) mmol/L Carbon Dioxide (22-30) mmol/L Anion Gap mmol/L BUN (9-20) mg/dL Creatinine (0.66-1.25) mg/dL Est GFR (CKD-EPI)AfAm (>60 ml/min/1.73 sqM) Est GFR (CKD-EPI)NonAf (>60 ml/min/1.73 sqM) Glucose (74-99) mg/dL POC Glucose (mg/dL) (75-99) mg/dL POC Glu Automobile Mechanic ID Plasma Lactic Acid Bruno 1.7 (0.7-2.0) mmol/L Calcium (8.4-10.2) mg/dL Magnesium (1.6-2.3) mg/dL Total Bilirubin (0.2-1.3) mg/dL AST (17-59) U/L ALT (4-49) U/L Alkaline Phosphatase (38-126) U/L Total Protein (6.3-8.2) g/dL Albumin (3.5-5.0) g/dL Lipase (23-300) U/L TSH (0.465-4.680) mIU/L Urine Color Light Yellow Urine Appearance Clear (Clear) Urine pH 5.5 (5.0-8.0) Ur Specific [place] 1.047 H (1.001-1.035) Urine Protein 1+ H (Negative) Urine Glucose (UA) 4+ H (Negative) Urine Ketones 4+ H (Negative) Urine Blood Trace H (Negative) Urine Nitrite Negative (Negative) Urine Bilirubin Negative (Negative) Urine Urobilinogen <2.0 (<2.0) mg/dL Ur Leukocyte Esterase Negative (Negative) Urine RBC 1 (0-5) /hpf Urine WBC <1 (0-5) /hpf Ur Squamous Epith Cells <1 (0-4) /hpf Urine Mucus Rare H (None) /hpf Serum Alcohol mg/dL Acetone, Qual (Negative) Critical Care Time Critical Care Time: Yes Critical Care Time: 32 minutes Disposition Clinical Impression: DKA (diabetic ketoacidoses), Chronic abdominal pain, Hypomagnesemia, Nausea and vomiting Disposition: ADMITTED IP TO THIS [facility] Condition: Serious Is patient prescribed a controlled substance at d/c from ED?: No Decision to Admit Reason: Admit from EC Decision Date: 06/14/21 Decision Time: 20:23
[2021-06-14] MEDS ORDERED: PANTOPRAZOLE 40 MG/10 ML VIAL IVP STA (17:52)
[2021-06-14] MEDS ORDERED: SODIUM CHLORIDE 0.9% 2,000 ML IV ONE (17:52)
[2021-06-14] MEDS ORDERED: ONDANSETRON 4 MG/2 ML VIAL IVP STA (17:52)
[2021-06-14 18:45] LABS: VBG PH 7.25 (7.31-7.41)
[2021-06-14 18:46] LABS: Basophils # (A) 0.1 k/uL (0-0.2); Basophils % (A) 1 %; Eosinophils # (A) 0.1 k/uL (0-0.7); Eosinophils % (A) 1 %; HCT 49.8 % (39.0-53.0); Lymphocytes # (A) 1.1 k/uL (1.0-4.8); Lymphocytes % (A) 22 %; MCH 32.4 pg (25.0-35.0); MCHC 34.2 g/dL (31.0-37.0); MCV 94.9 fL (80.0-100.0); Mean Platelet Volume 8.3; Monocytes # (A) 0.2 k/uL (0-1.0); Monocytes % (A) 5 %; Neutrophils # (A) 3.4 k/uL (1.3-7.7); Neutrophils % (A) 69 %; Platelet Count 174 k/uL (150-450); RBC 5.25 m/uL (4.30-5.90); RDW 14.1 % (11.5-15.5); WBC 4.9 k/uL (3.8-10.6)
[2021-06-14 18:57] LABS: ALT 120 U/L (4-49); AST 135 U/L (17-59); African American GFR (CKD) >90 (>60 ml/min/1.73 sqM); Albumin 5.5 g/dL (3.5-5.0); Alcohol <10 mg/dL; Alkaline Phosphatase 142 U/L (38-126); Anion Gap 26 mmol/L; Blood Urea Nitrogen 9 mg/dL (9-20); Calcium 10.3 mg/dL (8.4-10.2); Chloride 98 mmol/L (98-107); Glucose 349 mg/dL (74-99); Lipase 53 U/L (23-300); Magnesium 1.8 mg/dL (1.6-2.3); Non-African American GFR(CKD) >90 (>60 ml/min/1.73 sqM); Potassium 4.8 mmol/L (3.5-5.1); Sodium 133 mmol/L (137-145); Total Bilirubin 4.3 mg/dL (0.2-1.3); Total Protein 8.4 g/dL (6.3-8.2)
[2021-06-14 19:00] LABS: Carbon Dioxide 9 mmol/L (22-30)
[2021-06-14] MEDS ORDERED: LORazepam 2 MG/ML INJ IV STA (19:26)
[2021-06-14] MEDS ORDERED: MORPHINE SULFATE 2 MG/ML SYRINGE IVP ONE (19:26)
[2021-06-14] MEDS ORDERED: SODIUM CHLORIDE 0.9% 1,000 ML IV SCH (20:00)
[2021-06-14 20:12] LABS: Appearance,Urine Clear (Clear); Bilirubin,Urine Negative (Negative); Blood,Urine Trace (Negative); Color,Urine Light Yellow; Glucose,Urine (UA) 4+ (Negative); Leukocyte Esterase,Urine Negative (Negative); Mucus,Urine Rare /hpf; Nitrite,Urine Negative (Negative); PH, Urine 5.5 (5.0-8.0); Protein,Urine 1+ (Negative); RBC,Urine 1 /hpf (0-5); Squamous Epithelial Cell,Urine <1 /hpf (0-4); Urobilinogen,Urine <2.0 mg/dL (<2.0); WBC,Urine <1 /hpf (0-5)
--- NOTE | 2021-06-14 20:18 | CT ---
EXAMINATION TYPE: CT abdomen pelvis w con DATE OF EXAM: 06/14/2021 COMPARISON: 05/10/2021 HISTORY: Abdominal pain and weakness. CT DLP: 662.7 mGycm Automated exposure control for dose reduction was used. CONTRAST: Performed with IV Contrast, patient injected with 100 mL of Isovue 300. Lung bases are clear of infiltrate. There is no pleural effusion. Heart size is normal. There is no p ericardial effusion. There is diffuse fatty infiltration of the liver. Spleen is intact. Stomach is intact. There is 5.3 c m cyst in the tail of the pancreas. There are multiple pancreatic calcifications. Gallbladder is inta ct. The bile ducts are not dilated. There is no adrenal mass. Kidneys show satisfactory contrast opacification. There is no hydronephrosi s. Ureters are not dilated. There is no retroperitoneal adenopathy. Delayed images show normal renal excretion. The bladder distends smoothly. There is no inguinal hernia. There is no evidence of a pelv ic mass. There is no free fluid in the pelvis. Appendix is posterior and appears normal. There is no mesenteric edema. There is no ascites or free air. There is no bowel obstruction. The lum bar vertebra have normal alignment. Disc spaces are normal. Posterior elements are intact. Bony pelvi s is intact. IMPRESSION: There is some fatty infiltration of the liver without change. Pancreatic calcifications and pancreatic cyst consistent with chronic pancreatitis and pseudocyst for mation. No change. No acute abnormality of the abdomen pelvis..
[2021-06-14] MEDS ORDERED: NALOXONE 0.4 MG/ML 1 ML VIAL IV PRN (20:23)
[2021-06-14 20:25] LABS: Specific Gravity,Urine 1.047 (1.001-1.035)
[2021-06-14 20:27] LABS: Ketones,Urine 4+ (Negative)
[2021-06-14] MEDS ORDERED: ONDANSETRON 4 MG/2 ML VIAL IVP PRN (20:55)
[2021-06-14] MEDS ORDERED: D5-0.45% NACL WITH KCL 20MEQ/L 1,000 ML IV ONE (21:00)
[2021-06-14 21:48] LABS: African American GFR (CKD) >90 (>60 ml/min/1.73 sqM); Anion Gap 24 mmol/L; Blood Urea Nitrogen 8 mg/dL (9-20); Chloride 99 mmol/L (98-107); Glucose 298 mg/dL (74-99); Non-African American GFR(CKD) >90 (>60 ml/min/1.73 sqM); Phosphorus 2.2 mg/dL (2.5-4.5); Potassium 4.7 mmol/L (3.5-5.1); Sodium 132 mmol/L (137-145)
[2021-06-14 22:08] LABS: Carbon Dioxide 9 mmol/L (22-30)
[2021-06-14] MEDS: INSULIN REGULAR 100 UNIT in SODIUM CHLORIDE 0.9% 100 ML IV SCH (22:31)
[2021-06-14 23:28] LABS: Glucose,Whole Blood 214 mg/dL (75-99)
[2021-06-14] MEDS ORDERED: LORazepam 2 MG/ML INJ IV PRN (23:39)
[2021-06-14] MEDS: LORazepam 2 MG/ML INJ IV PRN (23:59)
[2021-06-15] MEDS: MORPHINE SULFATE 2 MG/ML SYRINGE IVP PRN ×3 (00:15→09:10)
[2021-06-15] MEDS: THIAMINE 100 MG TAB PO SCH ×3 (00:46→16:26)
[2021-06-15 00:51] LABS: Glucose,Whole Blood 140 mg/dL (75-99)
--- NOTE | 2021-06-15 00:54 | P.HPIM ---
History of Present Illness H&P Date: 06/14/21 Chief Complaint: N/V abd pain 40 year old male with DM and alcohol abuse/dependance patient comes in complaining of Nausea and vomiting along with abdominal pain for the past couple days worsening today patient admits to history of diabetes mellitus and alcohol abuse he's been sober up until about a week ago when he relapsed as his father is sick in the hospital. Patient started binge drinking again his last drink was 1 PM today for the past 3 days she's been trying to cut back due to his symptoms he has not been taking any of his insulin he is on basal and 3 times preprandial insulin however he claims that he ran out of syringes for his short-acting insulin and he has not been able to take it however his Lantus supply through but he has not been taking either due to alcohol abuse. He thinks that every time he takes his insulin his blood sugar drops and he feels hungry and when he was not eating and drinking heavily he decided not to take his insulin. He has been through DKA in the past he recognizes the symptoms today and decided to come in for evaluation he's been having abdominal pain diffuse but mainly epigastric region denies any GI bleeding melena or coffee-ground vomiting denies any fevers or chills denies any urinary changes denies any upper respiratory infection symptoms. ED he was found to be in DKA and was started on insulin therapy and was given IV fluid hydration Review of Systems Pertinent positives as noted in HPI. All other systems were reviewed and are negative Past Medical History Past Medical History: Diabetes Mellitus, GERD/Reflux Additional Past Medical History / Comment(s): IDDM pt states he has been told he is type 1 and told he is type II, neuropathy occasionally in bilateral toes/fingers, ETOH abuse, past DT's when withdrawing from alcohol, chronic pancreatitis History of Any Multi-Drug Resistant Organisms: None Reported Past Surgical History: No Surgical Hx Reported Past Anesthesia/Blood Transfusion Reactions: Unable to Obtain Additional Past Anesthesia/Blood Transfusion Reaction / Comment(s): Pt has never had surgery. Past Psychological History: Anxiety Smoking Status: Vaper Past Alcohol Use History: Abuse, Daily Past Drug Use History: None Reported - Past Family History Father Family Medical History: Diabetes Mellitus Mother History Unknown: Yes Medications and Allergies Home Medications Medication Instructions Recorded Confirmed Type INSULIN LISPRO (HumaLOG) [humaLOG] See Protocol SQ AC-TID 12/30/20 06/14/21 History Insulin Glargine,Hum.rec.anlog 20 unit SQ HS 12/30/20 06/14/21 History [Lantus Solostar Pen] Pantoprazole Sodium [Protonix] 40 mg PO DAILY 12/30/20 06/14/21 History traZODone HCL 50 mg PO HS PRN 12/30/20 06/14/21 History ALPRAZolam [Xanax] 0.125 - 0.25 mg PO DAILY PRN 04/14/21 06/14/21 History Magnesium Oxide 400 mg PO DAILY 05/10/21 06/14/21 History Folic Acid 1 mg PO DAILY@1200 #30 tab 05/13/21 06/14/21 Rx Multivitamins, Thera [Multivitamin 1 each PO DAILY@1200 #30 tab 05/13/21 06/14/21 Rx (formulary)] Thiamine [Vitamin B-1] 100 mg PO BID-W/MEALS #60 tab 05/13/21 06/14/21 Rx Allergies Allergy/AdvReac Type Severity Reaction Status Date / Time No Known Allergies Allergy Verified 06/14/21 20:50 Physical Exam Vitals: Vital Signs Temp Pulse Resp BP Pulse Ox 06/14/21 20:54 101 H 16 140/83 100 06/14/21 15:53 98.4 F 120 H 16 134/96 97 Intake and Output 06/14/21 06/14/21 06/15/21 14:59 22:59 06:59 Other: Weight 77.111 kg Constitutional: No acute distress, conversant, pleasant Eyes: Anicteric sclerae, moist conjunctiva, Pupils equal round reactive to light ENMT: NC/AT Oropharynx clear, no erythema, or exudates Neck: Supple, FROM, no masses, or JVD No carotid bruits No thyromegaly Lungs: Clear to auscultation Clear to percussion Normal respiratory effort, no accessory muscle use Cardiovascular: Heart regular in rate and rhythm, No murmurs, gallops, or rubs No peripheral edema Abdominal: Soft Discomfort to deep palpation of the epigastric region, no guarding, rebound or rigidity Abdomen moving with respiration Normoactive bowel sounds No hepatomegaly, No splenomegaly No palpable mass No abdominal wall hernia noted Skin: Normal temperature, tone, texture, turgor No induration No subcutaneous nodules No rash, lesions No ulcers Extremities: No digital cyanosis No clubbing Pedal pulses intact and symmetrical Radial pulses intact and symmetrical No calf tenderness Psychiatric: Alert and oriented to person, place and time Appropriate affect fair judgement Neuro Muscles Strength 4/5 in all 4 extremities Sensation to light touch grossly present throughout Cranial nerves II-XII grossly intact No focal sensory deficits Lymphatics: no palpable cervical or supraclavicular , or inguinal lymph nodes Results CBC & Chem 7: 06/14/21 18:33 06/14/21 21:16 Labs: Abnormal Lab Results - Last 24 Hours (Table) 06/14/21 06/14/21 06/14/21 Range/Units 15:59 18:33 18:33 VBG pH 7.25 L (7.31-7.41) VBG pCO2 25 L (37-51) mmHg VBG HCO3 10 L (24-28) mmol/L Sodium 133 L (137-145) mmol/L Carbon Dioxide 9 L* (22-30) mmol/L BUN (9-20) mg/dL Glucose 349 H (74-99) mg/dL POC Glucose (mg/dL) 358 H (75-99) mg/dL Calcium 10.3 H (8.4-10.2) mg/dL Phosphorus (2.5-4.5) mg/dL Total Bilirubin 4.3 H (0.2-1.3) mg/dL AST 135 H (17-59) U/L ALT 120 H (4-49) U/L Alkaline Phosphatase 142 H (38-126) U/L Total Protein 8.4 H (6.3-8.2) g/dL Albumin 5.5 H (3.5-5.0) g/dL Ur Specific [place] (1.001-1.035) Urine Protein (Negative) Urine Glucose (UA) (Negative) Urine Ketones (Negative) Urine Blood (Negative) Urine Mucus (None) /hpf 06/14/21 06/14/21 06/14/21 Range/Units 20:08 21:16 23:26 VBG pH (7.31-7.41) VBG pCO2 (37-51) mmHg VBG HCO3 (24-28) mmol/L Sodium 132 L (137-145) mmol/L Carbon Dioxide 9 L* (22-30) mmol/L BUN 8 L (9-20) mg/dL Glucose 298 H (74-99) mg/dL POC Glucose (mg/dL) 214 H (75-99) mg/dL Calcium (8.4-10.2) mg/dL Phosphorus 2.2 L (2.5-4.5) mg/dL Total Bilirubin (0.2-1.3) mg/dL AST (17-59) U/L ALT (4-49) U/L Alkaline Phosphatase (38-126) U/L Total Protein (6.3-8.2) g/dL Albumin (3.5-5.0) g/dL Ur Specific [place] 1.047 H (1.001-1.035) Urine Protein 1+ H (Negative) Urine Glucose (UA) 4+ H (Negative) Urine Ketones 4+ H (Negative) Urine Blood Trace H (Negative) Urine Mucus Rare H (None) /hpf Assessment and Plan Assessment: DKA Noncompliance with insulin Patient started on DKA pathway with IV insulin, IV fluid hydration, close monitoring of electrolytes and blood sugar 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
[2021-06-15 01:42] LABS: African American GFR (CKD) >90 (>60 ml/min/1.73 sqM); Anion Gap 19 mmol/L; Blood Urea Nitrogen 8 mg/dL (9-20); Carbon Dioxide 11 mmol/L (22-30); Chloride 103 mmol/L (98-107); Glucose 143 mg/dL (74-99); Non-African American GFR(CKD) >90 (>60 ml/min/1.73 sqM); Potassium 3.5 mmol/L (3.5-5.1); Sodium 133 mmol/L (137-145)
[2021-06-15 01:50] LABS: Phosphorus 0.8 mg/dL (2.5-4.5)
[2021-06-15 02:04] LABS: Glucose,Whole Blood 129 mg/dL (75-99)
[2021-06-15] MEDS ORDERED: Phosphorus Replacement Protoco 1 EACH MISC MISCELLANE PRN (02:10)
[2021-06-15] MEDS: POTASSIUM PHOSPHATE 10 MMOL in SODIUM CHLORIDE 0.9% 250 ML IV SCH ×3 (03:18→12:39)
[2021-06-15] MEDS: LORazepam 2 MG/ML INJ IV PRN ×4 (03:25→21:18)
[2021-06-15 03:27] LABS: Glucose,Whole Blood 137 mg/dL (75-99)
[2021-06-15 04:24] LABS: Glucose,Whole Blood 107 mg/dL (75-99)
[2021-06-15 05:31] LABS: Glucose,Whole Blood 117 mg/dL (75-99)
[2021-06-15 06:17] LABS: African American GFR (CKD) >90 (>60 ml/min/1.73 sqM); Anion Gap 16 mmol/L; Blood Urea Nitrogen 9 mg/dL (9-20); Carbon Dioxide 14 mmol/L (22-30); Chloride 104 mmol/L (98-107); Non-African American GFR(CKD) >90 (>60 ml/min/1.73 sqM); Potassium 4.3 mmol/L (3.5-5.1); Sodium 134 mmol/L (137-145)
[2021-06-15 06:26] LABS: Glucose,Whole Blood 168 mg/dL (75-99)
[2021-06-15] MEDS: D5-0.45% NACL WITH KCL 20MEQ/L 1,000 ML IV SCH ×2 (06:52→16:06)
[2021-06-15 07:30] LABS: Glucose,Whole Blood 173 mg/dL (75-99)
[2021-06-15 09:01] LABS: Glucose,Whole Blood 306 mg/dL (75-99)
[2021-06-15] MEDS: PANTOPRAZOLE 40 MG TABLET PO SCH ×2 (09:10→16:26)
[2021-06-15 09:32] LABS: VBG PH 7.29 (7.31-7.41)
[2021-06-15 09:57] LABS: African American GFR (CKD) >90 (>60 ml/min/1.73 sqM); Anion Gap 18 mmol/L; Blood Urea Nitrogen 10 mg/dL (9-20); Calcium 8.8 mg/dL (8.4-10.2); Carbon Dioxide 13 mmol/L (22-30); Chloride 101 mmol/L (98-107); Glucose 296 mg/dL (74-99); Magnesium 1.6 mg/dL (1.6-2.3); Non-African American GFR(CKD) >90 (>60 ml/min/1.73 sqM); Potassium 4.2 mmol/L (3.5-5.1); Sodium 132 mmol/L (137-145)
[2021-06-15 10:11] LABS: Glucose,Whole Blood 329 mg/dL (75-99)
[2021-06-15 11:50] LABS: Glucose,Whole Blood 339 mg/dL (75-99)
[2021-06-15 12:48] LABS: African American GFR (CKD) >90 (>60 ml/min/1.73 sqM); Anion Gap 14 mmol/L; Blood Urea Nitrogen 8 mg/dL (9-20); Carbon Dioxide 18 mmol/L (22-30); Chloride 100 mmol/L (98-107); Glucose 340 mg/dL (74-99); Non-African American GFR(CKD) >90 (>60 ml/min/1.73 sqM); Potassium 4.7 mmol/L (3.5-5.1); Sodium 132 mmol/L (137-145)
[2021-06-15 12:51] LABS: Glucose,Whole Blood 363 mg/dL (75-99)
[2021-06-15] MEDS: DICYCLOMINE 10 MG CAP PO SCH ×3 (12:55→21:19)
[2021-06-15] MEDS: HEPARIN SODIUM,PORCINE/PF 5,000 UNIT/0.5 ML SYRINGE SQ SCH ×2 (12:55→16:26)
[2021-06-15] MEDS ORDERED: traZODone HCL 50 MG TAB PO PRN (14:07)
--- NOTE | 2021-06-15 14:23 | P.PN ---
Subjective Progress Note Date: 06/15/21 Hospital course: Patient is a 40-year-old male with a past medical history of insulin-dependent diabetes mellitus, diabetic neuropathy, and EtOH use/abuse. Patient presented to the emergency department 06/14/21 with a chief complaint of abdominal pain, nausea, and vomiting. Patient reports last alcoholic beverage was on the afternoon of 06/14/21. Upon arrival to our facility, patient was found to be in DKA and received fluid bolus hydration followed by maintenance infusion and started on DKA protocol with insulin infusion. Patient admitted under our ser vices. Physical exam: The patient was seen and fully evaluated at the bedside this morning. He remains on insulin infusion per DKA protocol. Patient with low magnesium levels orders placed for replacement at this time. He continues to report nausea and v omiting with epigastric pain "whenever I eat". Pt made NPO at this time. We will continue to monitor electrolytes and VBG to 6 hours. *Update. Anion gap closed, pt tolerating PO intake, pt given Lantus 20 units x one dose and started on glycemic protocol with Novolog sliding scale at this time. Vital signs reviewed and stable. General: Nontoxic, no distress and appears stated age. Derm: Skin warm and dry, normal coloration for ethnicity. Head: Atraumatic, normocephalic and symmetric. Eyes: EOMs intact, no lid lag, and anicteric sclera Mouth: no lip lesions, mucus membranes moist Cardiovascular: regular rate and rhythm with normal S1S2, no murmur, positive posterior tibial pulses bilaterally, and cap refill < 2 seconds. Lungs: Respirations even, regular, and unlabored on room air. Lungs CTA bilaterally, no rhonchi, no rales, no wheezing, and no accessory muscle usage. Abdominal: soft, nontender to palpation, no guarding, no appreciable organomegaly Ext: ROM intact. No gross muscle atrophy, no edema, no contractures Neuro: Speech clear, face symmetrical and CN II-XII grossly intact with no noted focal neuro deficits Psych: Alert and oriented to person, place, time, and situation. Appropriate and pleasant affect. Assessment and Plan of Care: DKA IDDM, Noncompliance with insulin -Patient started on DKA protocol with IV insulin, IV fluid hydration, close monitoring of electrolytes and blood sugar. -VBG and electrolytes every 4 hours -Diabetic education -transplant worker consult for assistance in obtaining diabetic supplies * Update. Anion gap closed, pt tolerating PO intake, pt given Lantus 20 units x one dose and started on glycemic protocol with Novolog sliding scale at this cindi e. Alcohol dependence/abuse Alcohol withdrawal symptoms with nausea, vomiting and epigastric pain. -CIWA protocol with symptom triggered medication management with Ativan. -Seizure precautions, fall precautions, aspiration precautions. -Continue thiamine, folic acid, and multivitamin daily. -Continued education and encouragement on the importance of alcohol cessation and risks of continued use, patient offered outpatient resources as well as possible rehab placement. Patient currently declining patient rehab at this time. Acute transaminitis secondary to alcohol abuse/binge drinking -Liver enzymes elevated with total bili of 4.3, AST 135, ALT 120, and alkaline phosphatase of 142. -We will continue to monitor with repeat a.m. labs. -Caution with hepatotoxic medications. Hypomagnesemia -Replaced, will continue to monitor electrolytes closely and replace as needed. Hyponatremia -Continue with fluid rehydration. -Continue to monitor with repeat a.m. labs. CODE STATUS: Full code DVT prophylaxis: Heparin Discussed with: Patient and RN Anticipated discharge date: Clinical course to determine. Anticipated discharge place: Home A total of 45 minutes was spent on the care of this complex patient more than 50% of the time was spent in counseling and care coordination. Objective - Vital Signs Vital signs: Vital Signs Temp 98.4 F 06/14/21 15:53 Pulse 89 06/15/21 06:00 Resp 17 06/15/21 06:00 BP 117/73 06/15/21 06:00 Pulse Ox 97 06/15/21 06:00 Intake & Output 06/14/21 06/15/21 06/15/21 18:59 06:59 18:59 Intake Total 26.526 0.296 Balance 26.526 0.296 Weight 77.111 kg Intake: Intake, IV Titration 26.526 0.296 Amount Insulin Regular 100 unit 26.526 0.296 In Sodium Chloride 0.9% 100 ml @ 0.1 UNITS/KG/HR 7.788 mls/hr IV .[id number] [facility] Rx#:[id number] - Labs CBC & Chem 7: 06/14/21 18:33 06/15/21 12:26 Labs: Abnormal Lab Results - Last 24 Hours (Table) 06/14/21 06/14/21 06/14/21 Range/Units 15:59 18:33 18:33 VBG pH 7.25 L (7.31-7.41) VBG pCO2 25 L (37-51) mmHg VBG HCO3 10 L (24-28) mmol/L Sodium 133 L (137-145) mmol/L Carbon Dioxide 9 L* (22-30) mmol/L BUN (9-20) mg/dL Creatinine (0.66-1.25) mg/dL Glucose 349 H (74-99) mg/dL POC Glucose (mg/dL) 358 H (75-99) mg/dL Calcium 10.3 H (8.4-10.2) mg/dL Phosphorus (2.5-4.5) mg/dL Total Bilirubin 4.3 H (0.2-1.3) mg/dL AST 135 H (17-59) U/L ALT 120 H (4-49) U/L Alkaline Phosphatase 142 H (38-126) U/L Total Protein 8.4 H (6.3-8.2) g/dL Albumin 5.5 H (3.5-5.0) g/dL Ur Specific [place] (1.001-1.035) Urine Protein (Negative) Urine Glucose (UA) (Negative) Urine Ketones (Negative) Urine Blood (Negative) Urine Mucus (None) /hpf 06/14/21 06/14/21 06/14/21 Range/Units 20:08 21:16 23:26 VBG pH (7.31-7.41) VBG pCO2 (37-51) mmHg VBG HCO3 (24-28) mmol/L Sodium 132 L (137-145) mmol/L Carbon Dioxide 9 L* (22-30) mmol/L BUN 8 L (9-20) mg/dL Creatinine (0.66-1.25) mg/dL Glucose 298 H (74-99) mg/dL POC Glucose (mg/dL) 214 H (75-99) mg/dL Calcium (8.4-10.2) mg/dL Phosphorus 2.2 L (2.5-4.5) mg/dL Total Bilirubin (0.2-1.3) mg/dL AST (17-59) U/L ALT (4-49) U/L Alkaline Phosphatase (38-126) U/L Total Protein (6.3-8.2) g/dL Albumin (3.5-5.0) g/dL Ur Specific [place] 1.047 H (1.001-1.035) Urine Protein 1+ H (Negative) Urine Glucose (UA) 4+ H (Negative) Urine Ketones 4+ H (Negative) Urine Blood Trace H (Negative) Urine Mucus Rare H (None) /hpf 06/15/21 06/15/21 06/15/21 Range/Units 00:46 00:56 02:01 VBG pH (7.31-7.41) VBG pCO2 (37-51) mmHg VBG HCO3 (24-28) mmol/L Sodium 133 L (137-145) mmol/L Carbon Dioxide 11 L (22-30) mmol/L BUN 8 L (9-20) mg/dL Creatinine (0.66-1.25) mg/dL Glucose 143 H (74-99) mg/dL POC Glucose (mg/dL) 140 H 129 H (75-99) mg/dL Calcium (8.4-10.2) mg/dL Phosphorus 0.8 L* (2.5-4.5) mg/dL Total Bilirubin (0.2-1.3) mg/dL AST (17-59) U/L ALT (4-49) U/L Alkaline Phosphatase (38-126) U/L Total Protein (6.3-8.2) g/dL Albumin (3.5-5.0) g/dL Ur Specific [place] (1.001-1.035) Urine Protein (Negative) Urine Glucose (UA) (Negative) Urine Ketones (Negative) Urine Blood (Negative) Urine Mucus (None) /hpf 06/15/21 06/15/21 06/15/21 Range/Units 03:16 04:20 05:28 VBG pH (7.31-7.41) VBG pCO2 (37-51) mmHg VBG HCO3 (24-28) mmol/L Sodium (137-145) mmol/L Carbon Dioxide (22-30) mmol/L BUN (9-20) mg/dL Creatinine (0.66-1.25) mg/dL Glucose (74-99) mg/dL POC Glucose (mg/dL) 137 H 107 H 117 H (75-99) mg/dL Calcium (8.4-10.2) mg/dL Phosphorus (2.5-4.5) mg/dL Total Bilirubin (0.2-1.3) mg/dL AST (17-59) U/L ALT (4-49) U/L Alkaline Phosphatase (38-126) U/L Total Protein (6.3-8.2) g/dL Albumin (3.5-5.0) g/dL Ur Specific [place] (1.001-1.035) Urine Protein (Negative) Urine Glucose (UA) (Negative) Urine Ketones (Negative) Urine Blood (Negative) Urine Mucus (None) /hpf 06/15/21 06/15/21 06/15/21 Range/Units 05:49 06:22 07:26 VBG pH (7.31-7.41) VBG pCO2 (37-51) mmHg VBG HCO3 (24-28) mmol/L Sodium 134 L (137-145) mmol/L Carbon Dioxide 14 L (22-30) mmol/L BUN (9-20) mg/dL Creatinine 0.58 L (0.66-1.25) mg/dL Glucose (74-99) mg/dL POC Glucose (mg/dL) 168 H 173 H (75-99) mg/dL Calcium (8.4-10.2) mg/dL Phosphorus (2.5-4.5) mg/dL Total Bilirubin (0.2-1.3) mg/dL AST (17-59) U/L ALT (4-49) U/L Alkaline Phosphatase (38-126) U/L Total Protein (6.3-8.2) g/dL Albumin (3.5-5.0) g/dL Ur Specific [place] (1.001-1.035) Urine Protein (Negative) Urine Glucose (UA) (Negative) Urine Ketones (Negative) Urine Blood (Negative) Urine Mucus (None) /hpf 06/15/21 Range/Units 08:59 VBG pH (7.31-7.41) VBG pCO2 (37-51) mmHg VBG HCO3 (24-28) mmol/L Sodium (137-145) mmol/L Carbon Dioxide (22-30) mmol/L BUN (9-20) mg/dL Creatinine (0.66-1.25) mg/dL Glucose (74-99) mg/dL POC Glucose (mg/dL) 306 H (75-99) mg/dL Calcium (8.4-10.2) mg/dL Phosphorus (2.5-4.5) mg/dL Total Bilirubin (0.2-1.3) mg/dL AST (17-59) U/L ALT (4-49) U/L Alkaline Phosphatase (38-126) U/L Total Protein (6.3-8.2) g/dL Albumin (3.5-5.0) g/dL Ur Specific [place] (1.001-1.035) Urine Protein (Negative) Urine Glucose (UA) (Negative) Urine Ketones (Negative) Urine Blood (Negative) Urine Mucus (None) /hpf
[2021-06-15] MEDS: INSULIN DETEMIR (LEVEMIR) 100 UNIT/ML SYR SQ SCH ×2 (14:52→21:19)
[2021-06-15] MEDS: MAGNESIUM SULFATE-D5W PMX 1 GM in DEXTROSE/WATER 1 100ML.BAG IVPB SCH ×3 (14:52→18:04)
[2021-06-15] MEDS: INSULIN REGULAR 100 UNIT in SODIUM CHLORIDE 0.9% 100 ML IV SCH (16:06)
[2021-06-15 16:39] LABS: Glucose,Whole Blood 205 mg/dL (75-99)
[2021-06-15] MEDS: INSULIN ASPART (NovoLOG) 100 UNIT/ML VIAL SQ SCH ×2 (18:02→21:19)
[2021-06-15 18:46] LABS: VBG PH 7.39 (7.31-7.41)
[2021-06-15 18:56] LABS: African American GFR (CKD) >90 (>60 ml/min/1.73 sqM); Anion Gap 15 mmol/L; Blood Urea Nitrogen 6 mg/dL (9-20); Calcium 8.8 mg/dL (8.4-10.2); Carbon Dioxide 16 mmol/L (22-30); Chloride 98 mmol/L (98-107); Glucose 389 mg/dL (74-99); Magnesium 2.2 mg/dL (1.6-2.3); Non-African American GFR(CKD) >90 (>60 ml/min/1.73 sqM); Sodium 129 mmol/L (137-145)
[2021-06-15 19:45] LABS: Glucose,Whole Blood 270 mg/dL (75-99)
[2021-06-15] MEDS ORDERED: INSULIN DETEMIR (LEVEMIR) 100 UNIT/ML SYR SQ SCH (21:00)
[2021-06-15] MEDS: SODIUM PHOSPHATE 10 MMOL in SODIUM CHLORIDE 0.9% 250 ML IVPB SCH (21:19)
[2021-06-16] MEDS: SODIUM PHOSPHATE 10 MMOL in SODIUM CHLORIDE 0.9% 250 ML IVPB SCH (00:27)
[2021-06-16] MEDS: LORazepam 2 MG/ML INJ IV PRN ×3 (00:27→09:43)
[2021-06-16] MEDS: HEPARIN SODIUM,PORCINE/PF 5,000 UNIT/0.5 ML SYRINGE SQ SCH ×2 (00:27→09:40)
[2021-06-16 02:07] LABS: Glucose,Whole Blood 72 mg/dL (75-99)
[2021-06-16 05:53] LABS: Glucose,Whole Blood 137 mg/dL (75-99)
[2021-06-16] MEDS: INSULIN ASPART (NovoLOG) 100 UNIT/ML VIAL SQ SCH (06:28)
[2021-06-16] MEDS: THIAMINE 100 MG TAB PO SCH (06:29)
[2021-06-16] MEDS: PANTOPRAZOLE 40 MG TABLET PO SCH (06:29)
[2021-06-16 06:53] LABS: Basophils % (A) 1 %; Eosinophils # (A) 0.1 k/uL (0-0.7); Eosinophils % (A) 3 %; HCT 42.8 % (39.0-53.0); HGB 14.2 gm/dL (13.0-17.5); Lymphocytes # (A) 1.3 k/uL (1.0-4.8); Lymphocytes % (A) 36 %; MCH 30.8 pg (25.0-35.0); MCHC 33.1 g/dL (31.0-37.0); MCV 93.1 fL (80.0-100.0); Mean Platelet Volume 8.9; Monocytes # (A) 0.1 k/uL (0-1.0); Monocytes % (A) 4 %; Neutrophils # (A) 2.1 k/uL (1.3-7.7); Neutrophils % (A) 56 %; Platelet Count 118 k/uL (150-450); RBC 4.59 m/uL (4.30-5.90); RDW 13.4 % (11.5-15.5); WBC 3.7 k/uL (3.8-10.6)
[2021-06-16 07:15] LABS: ALT 134 U/L (4-49); AST 156 U/L (17-59); African American GFR (CKD) >90 (>60 ml/min/1.73 sqM); Albumin 3.9 g/dL (3.5-5.0); Alkaline Phosphatase 85 U/L (38-126); Anion Gap 11 mmol/L; Blood Urea Nitrogen 8 mg/dL (9-20); Calcium 9.4 mg/dL (8.4-10.2); Carbon Dioxide 25 mmol/L (22-30); Chloride 101 mmol/L (98-107); Glucose 150 mg/dL (74-99); Non-African American GFR(CKD) >90 (>60 ml/min/1.73 sqM); Phosphorus 2.7 mg/dL (2.5-4.5); Potassium 3.2 mmol/L (3.5-5.1); Sodium 137 mmol/L (137-145); Total Bilirubin 3.1 mg/dL (0.2-1.3); Total Protein 6.1 g/dL (6.3-8.2)
[2021-06-16] MEDS ORDERED: POTASSIUM CHLORIDE ER 20 MEQ TAB.ER PO STA (07:39)
[2021-06-16] MEDS ORDERED: MULTIVITAMINS, THERA 1 EACH TAB PO SCH (09:00)
[2021-06-16] MEDS ORDERED: MAGNESIUM OXIDE 400 MG TAB PO SCH (09:00)
[2021-06-16] MEDS ORDERED: FOLIC ACID 1 MG TAB PO SCH (09:00)
[2021-06-16 09:28] VITALS: BP 118/76; PULSE 100; RESP 16; TEMP 98
[2021-06-16] MEDS: DICYCLOMINE 10 MG CAP PO SCH (09:40)
--- NOTE | 2021-06-16 09:59 | P.DS ---
Providers Date of admission: 06/14/21 20:23 Expected date of discharge: 06/16/21 Attending physician: Gigi Alonso MD Primary care physician: Stated None Hospital Course: Patient is a 40-year-old male with a past medical history of insulin-dependent diabetes mellitus, diabetic neuropathy, and EtOH use/abuse. Patient presented to the emergency department 06/14/21 with a chief complaint of abdominal pain, nausea, and vomiting. Patient reports last alcoholic beverage was on the afternoon of 06/14/21. Upon arrival to our facility, patient was found to be in DKA and received fluid bolus hydration followed by maintenance infusion and started on DKA protocol with insulin infusion. Patient admitted under our services. Patient was treated aggressively with IV fluid hydration, insulin drip per DKA protocol, and Ativan as needed per CIWA protocol. Patient's overall condition improved significantly. He was counseled extensively regarding alcohol cessation and compliance with his insulin. Patient verbalized understanding. He'll be discharged home in a stable condition. His lab work improved significantly. He will resume his insulin dose as directed. He would be given at 3 days prescription for Librium. Advised to follow-up with his PCP as directed. Below is as of his medical problems addressed during this hospitalization. DKA IDDM, Noncompliance with insulin Alcohol dependence/abuse Alcohol withdrawal symptoms with nausea, vomiting and epigastric pain. Acute transaminitis secondary to alcohol abuse/binge drinking Hypomagnesemia Hyponatremia General: The patient is awake and alert, in no distress Eye: there is normal conjunctiva bilaterally. Neck: The neck is supple, there is no JVD. Cardiovascular: Normal S1-S2, no S3-S4, no murmurs. Respiratory: Lungs clear to auscultation bilaterally Gastrointestinal: Abdomen is soft, nontender Musculoskeletal: There is no pedal edema. Neurological:. Speech is normal. Skin: Skin is warm and dry Patient Condition at Discharge: Serious Plan - Discharge Summary Discharge Rx Participant: Yes New Discharge Prescriptions: New chlordiazePOXIDE HCl [Librium] 25 mg PO TID 3 Days #9 capsule Continue Pantoprazole Sodium [Protonix] 40 mg PO DAILY INSULIN LISPRO (HumaLOG) [humaLOG] See Protocol SQ AC-TID Folic Acid 1 mg PO DAILY@1200 #30 tab Multivitamins, Thera [Multivitamin (formulary)] 1 each PO DAILY@1200 #30 tab traZODone HCL 50 mg PO HS PRN PRN Reason: Insomnia Insulin Glargine,Hum.rec.anlog [Lantus Solostar Pen] 20 unit SQ HS Magnesium Oxide 400 mg PO DAILY Thiamine [Vitamin B-1] 100 mg PO BID-W/MEALS #60 tab Discontinued ALPRAZolam [Xanax] 0.125 - 0.25 mg PO DAILY PRN PRN Reason: Anxiety Discharge Medication List INSULIN LISPRO (HumaLOG) [humaLOG] See Protocol SQ AC-TID 12/30/20 [History] Insulin Glargine,Hum.rec.anlog [Lantus Solostar Pen] 20 unit SQ HS 12/30/20 [History] Pantoprazole Sodium [Protonix] 40 mg PO DAILY 12/30/20 [History] traZODone HCL 50 mg PO HS PRN 12/30/20 [History] Magnesium Oxide 400 mg PO DAILY 05/10/21 [History] Folic Acid 1 mg PO DAILY@1200 #30 tab 05/13/21 [Rx] Multivitamins, Thera [Multivitamin (formulary)] 1 each PO DAILY@1200 #30 tab 05/13/21 [Rx] Thiamine [Vitamin B-1] 100 mg PO BID-W/MEALS #60 tab 05/13/21 [Rx] chlordiazePOXIDE HCl [Librium] 25 mg PO TID 3 Days #9 capsule 06/16/21 [Rx] Follow up Appointment(s)/Referral(s): None,Stated [Primary Care Provider] - 1-2 days Discharge Disposition: HOME SELF-CARE
== END 2021-06-16 10:53 | disposition home or self-care (01) ==
LOC: EC 15:19 → INTOOBSV 20:23 → 3SCARD 20:23 → UNDODISIN 06-16 10:53
PROVIDERS: ADMIT Internal Medicine; ATTEND Internal Medicine
DX: E11.10 Type 2 diabetes mellitus with ketoacidosis without coma (principal); F10.239 Alcohol dependence with withdrawal, unspecified; K86.1 Other chronic pancreatitis; K86.3 Pseudocyst of pancreas; E83.42 Hypomagnesemia; E87.1 Hypo-osmolality and hyponatremia; Z91.14 Patient's other noncompliance with medication regimen; K21.9 Gastro-esophageal reflux disease without esophagitis; E11.42 Type 2 diabetes mellitus with diabetic polyneuropathy; F41.9 Anxiety disorder, unspecified; K76.0 Fatty (change of) liver, not elsewhere classified; R74.01 Elevation of levels of liver transaminase levels; Y90.0 Blood alcohol level of less than 20 mg/100 ml; Z71.41 Alcohol abuse counseling and surveillance of alcoholic; Z20.822 Contact with and (suspected) exposure to COVID-19; Z79.4 Long term (current) use of insulin; Z79.899 Other long term (current) drug therapy; Z83.3 Family history of diabetes mellitus
CPT/HCPCS: 96376 ×4; 96366 ×4; 96367; 96372 ×3; 96368; 96365; 96375; 99285 ×2; 36415; 80051 ×2; 80053 ×2; 80048; 84443; 82565 ×2; 82803 ×2; 82009; 83605; 83690; 83735 ×2; 84100 ×3; 82947 ×2; 84520 ×2; 85025 ×2; 81001; 87635; 74177; G0378 ×3; G0480; J2060 ×3; J2405; J2270 ×2; J3475; C9113; Q9967; J1644 ×2; 80320

== ENCOUNTER 2021-07-22 05:49 | Observation (INO) | payer OTHER ==
[2021-07-22 06:03] LABS: Glucose,Whole Blood 256 mg/dL (75-99)
[2021-07-22] MEDS ORDERED: SODIUM CHLORIDE 0.9% 1,000 ML IV ONE ×2 (06:17→07:16)
[2021-07-22] MEDS ORDERED: LORazepam 2 MG/ML INJ IV STA (06:17)
[2021-07-22 06:27] LABS: Basophils # (A) 0.1 k/uL (0-0.2); Basophils % (A) 1 %; Eosinophils # (A) 0.1 k/uL (0-0.7); Eosinophils % (A) 1 %; HCT 47.7 % (39.0-53.0); HGB 16.8 gm/dL (13.0-17.5); Lymphocytes # (A) 1.8 k/uL (1.0-4.8); Lymphocytes % (A) 29 %; MCH 32.6 pg (25.0-35.0); MCHC 35.1 g/dL (31.0-37.0); MCV 92.8 fL (80.0-100.0); Mean Platelet Volume 8.3; Monocytes # (A) 0.2 k/uL (0-1.0); Monocytes % (A) 3 %; Neutrophils # (A) 3.8 k/uL (1.3-7.7); Neutrophils % (A) 63 %; Platelet Count 216 k/uL (150-450); RBC 5.15 m/uL (4.30-5.90); RDW 12.8 % (11.5-15.5)
--- NOTE | 2021-07-22 06:28 | ED ---
General Adult HPI - General Chief complaint: Recheck/Abnormal Lab/Rx Stated complaint: Confusion Source: patient Mode of arrival: ambulatory Limitations: no limitations - History of Present Illness Initial comments: This patient is a 40-year-old man who presents with complaints of anxiety, nausea and vomiting. The patient states that he has to situations contributing. One is that he had run out of insulin syringes, and therefore has not been able take insulin going on a few days now. Patient states that he has also been drinking between the fifth and a half gallon of vodka a day for about a week. Patient states he is starting to feel like he is withdrawing. He has had previous withdrawal seizures. Patient has had multiple episodes of vomiting this morning. He has some epigastric burning. He has seen a little bit of coffee-ground emesis. Onset/Timin -: days(s) Location: abdomen Radiation: non-radiation Quality: burning Consistency: constant Improves with: none Worsens with: none - Related Data Home Medications Medication Instructions Recorded Confirmed INSULIN LISPRO (HumaLOG) [humaLOG] See Protocol SQ AC-TID 12/30/20 07/22/21 Insulin Glargine,Hum.rec.anlog 20 unit SQ DAILY 12/30/20 07/22/21 [Lantus Solostar Pen] Pantoprazole Sodium [Protonix] 40 mg PO DAILY 12/30/20 07/22/21 traZODone HCL 50 mg PO HS PRN 12/30/20 07/22/21 Magnesium Oxide 400 mg PO DAILY 05/10/21 07/22/21 ALPRAZolam [Xanax] 0.25 mg PO HS PRN 07/22/21 07/22/21 Folic Acid 1 mg PO DAILY 07/22/21 07/22/21 Previous Rx's Medication Instructions Recorded Syringe and Needle,Insulin,1Ml 1 syr SQ DIRECTED #90 each 07/23/21 [Insulin Syringe 29G 1/2" 1ml] Thiamine [Vitamin B-1] 100 mg PO BID-W/MEALS #60 tab 07/23/21 chlordiazePOXIDE HCl [Librium] See Taper PO TID 3 Days #9 capsule 07/23/21 Allergies Allergy/AdvReac Type Severity Reaction Status Date / Time No Known Allergies Allergy Verified 07/22/21 07:21 Review of Systems ROS Statement: Those systems with pertinent positive or pertinent negative responses have been documented in the HPI. ROS Other: All systems not noted in ROS Statement are negative. Constitutional: Denies: fever, chills, weakness Respiratory: Denies: cough, dyspnea, hemoptysis Cardiovascular: Reports: palpitations. Denies: chest pain, orthopnea, edema, syncope Gastrointestinal: Reports: abdominal pain, nausea, vomiting, hematemesis. Denies: diarrhea, melena, hematochezia Genitourinary: Denies: dysuria, hematuria Musculoskeletal: Denies: back pain Skin: Denies: rash Neurological: Denies: headache, weakness, numbness Past Medical History Past Medical History: Diabetes Mellitus, GERD/Reflux Additional Past Medical History / Comment(s): IDDM pt states he has been told he is type 1 and told he is type II, neuropathy occasionally in bilateral toes/fingers, ETOH abuse, past DT's when withdrawing from alcohol, chronic pancreatitis History of Any Multi-Drug Resistant Organisms: None Reported Past Surgical History: No Surgical Hx Reported Past Anesthesia/Blood Transfusion Reactions: Unable to Obtain Additional Past Anesthesia/Blood Transfusion Reaction / Comment(s): Pt has never had surgery. Past Psychological History: Anxiety Smoking Status: Vaper Past Alcohol Use History: Abuse, Daily Past Drug Use History: None Reported - Past Family History Father Family Medical History: Diabetes Mellitus Mother History Unknown: Yes General Exam Limitations: no limitations General appearance: alert, in no apparent distress Head exam: Present: atraumatic, normocephalic Eye exam: Present: normal appearance. Absent: scleral icterus, conjunctival injection ENT exam: Present: mucous membranes dry Neck exam: Present: normal inspection Respiratory exam: Present: normal lung sounds bilaterally. Absent: respiratory distress, wheezes, rales, rhonchi, stridor Cardiovascular Exam: Present: normal rhythm, tachycardia, systolic murmur. Absent: diastolic murmur, rubs, gallop GI/Abdominal exam: Present: soft. Absent: distended, tenderness, guarding, rebound, rigid, mass, pulsatile mass, hernia Extremities exam: Present: normal inspection, normal capillary refill. Absent: pedal edema, calf tenderness Back exam: Present: normal inspection. Absent: CVA tenderness (R), CVA tenderness (L) Neurological exam: Present: alert Skin exam: Present: warm, dry, intact, normal color. Absent: rash Course Vital Signs 07/22/21 07/22/21 07/22/21 05:53 06:49 08:27 Temperature 98.4 F Pulse Rate 116 H 106 H 105 H Respiratory 20 18 18 Rate Blood Pressure 109/78 127/81 125/74 O2 Sat by Pulse 97 99 95 Oximetry 07/22/21 07/22/21 07/22/21 11:22 14:30 16:51 Temperature 98.5 F Pulse Rate 99 103 H 92 Respiratory 18 16 18 Rate Blood Pressure 147/83 124/79 129/78 O2 Sat by Pulse 99 98 98 Oximetry EKG Findings - EKG Results: EKG: interpreted by ERMD, sinus rhythm, normal axis, normal QRS, normal ST/T EKG shows: tachycardia (Rate 104 bpm) Medical Decision Making - Lab Data Result diagrams: 07/22/21 06:18 07/23/21 09:15 Lab Results 07/22/21 07/22/21 07/22/21 Range/Units 06:01 06:18 06:18 WBC 6.0 (3.8-10.6) k/uL RBC 5.15 (4.30-5.90) m/uL Hgb 16.8 (13.0-17.5) gm/dL Hct 47.7 (39.0-53.0) % MCV 92.8 (80.0-100.0) fL MCH 32.6 (25.0-35.0) pg MCHC 35.1 (31.0-37.0) g/dL RDW 12.8 (11.5-15.5) % Plt Count 216 (150-450) k/uL MPV 8.3 Neutrophils % 63 % Lymphocytes % 29 % Monocytes % 3 % Eosinophils % 1 % Basophils % 1 % Neutrophils # 3.8 (1.3-7.7) k/uL Lymphocytes # 1.8 (1.0-4.8) k/uL Monocytes # 0.2 (0-1.0) k/uL Eosinophils # 0.1 (0-0.7) k/uL Basophils # 0.1 (0-0.2) k/uL Sodium 139 (137-145) mmol/L Potassium 5.1 (3.5-5.1) mmol/L Chloride 95 L (98-107) mmol/L Carbon Dioxide 9 L* (22-30) mmol/L Anion Gap 35 mmol/L BUN 13 (9-20) mg/dL Creatinine 0.88 (0.66-1.25) mg/dL Est GFR (CKD-EPI)AfAm >90 (>60 ml/min/1.73 sqM) Est GFR (CKD-EPI)NonAf >90 (>60 ml/min/1.73 sqM) Glucose 277 H (74-99) mg/dL POC Glucose (mg/dL) 256 H (75-99) mg/dL POC Glu Bridge Crane Operator ID Calcium 10.0 (8.4-10.2) mg/dL Total Bilirubin 1.4 H (0.2-1.3) mg/dL AST 51 (17-59) U/L ALT 87 H (4-49) U/L Alkaline Phosphatase 175 H (38-126) U/L Troponin I (0.000-0.034) ng/mL Total Protein 8.4 H (6.3-8.2) g/dL Albumin 5.5 H (3.5-5.0) g/dL Urine Color Urine Appearance (Clear) Urine pH (5.0-8.0) Ur Specific [place] (1.001-1.035) Urine Protein (Negative) Urine Glucose (UA) (Negative) Urine Ketones (Negative) Urine Blood (Negative) Urine Nitrite (Negative) Urine Bilirubin (Negative) Urine Urobilinogen (<2.0) mg/dL Ur Leukocyte Esterase (Negative) Urine RBC (0-5) /hpf Urine WBC (0-5) /hpf Urine Mucus (None) /hpf Acetone, Qual Positive (Negative) 07/22/21 07/22/21 Range/Units 06:18 06:30 WBC (3.8-10.6) k/uL RBC (4.30-5.90) m/uL Hgb (13.0-17.5) gm/dL Hct (39.0-53.0) % MCV (80.0-100.0) fL MCH (25.0-35.0) pg MCHC (31.0-37.0) g/dL RDW (11.5-15.5) % Plt Count (150-450) k/uL MPV Neutrophils % % Lymphocytes % % Monocytes % % Eosinophils % % Basophils % % Neutrophils # (1.3-7.7) k/uL Lymphocytes # (1.0-4.8) k/uL Monocytes # (0-1.0) k/uL Eosinophils # (0-0.7) k/uL Basophils # (0-0.2) k/uL Sodium (137-145) mmol/L Potassium (3.5-5.1) mmol/L Chloride (98-107) mmol/L Carbon Dioxide (22-30) mmol/L Anion Gap mmol/L BUN (9-20) mg/dL Creatinine (0.66-1.25) mg/dL Est GFR (CKD-EPI)AfAm (>60 ml/min/1.73 sqM) Est GFR (CKD-EPI)NonAf (>60 ml/min/1.73 sqM) Glucose (74-99) mg/dL POC Glucose (mg/dL) (75-99) mg/dL POC Glu Bridge Crane Operator ID Calcium (8.4-10.2) mg/dL Total Bilirubin (0.2-1.3) mg/dL AST (17-59) U/L ALT (4-49) U/L Alkaline Phosphatase (38-126) U/L Troponin I <0.012 (0.000-0.034) ng/mL Total Protein (6.3-8.2) g/dL Albumin (3.5-5.0) g/dL Urine Color Yellow Urine Appearance Clear (Clear) Urine pH 5.5 (5.0-8.0) Ur Specific [place] 1.022 (1.001-1.035) Urine Protein 2+ H (Negative) Urine Glucose (UA) 4+ H (Negative) Urine Ketones 4+ H (Negative) Urine Blood Negative (Negative) Urine Nitrite Negative (Negative) Urine Bilirubin Negative (Negative) Urine Urobilinogen <2.0 (<2.0) mg/dL Ur Leukocyte Esterase Negative (Negative) Urine RBC 1 (0-5) /hpf Urine WBC <1 (0-5) /hpf Urine Mucus Rare H (None) /hpf Acetone, Qual (Negative) Critical Care Time Critical Care Time: Yes (30 minutes) Disposition Clinical Impression: DKA (diabetic ketoacidoses), Metabolic acidosis, increased anion gap, Alcohol withdrawal Disposition: ADMITTED IP TO THIS HOSP Condition: Serious Is patient prescribed a controlled substance at d/c from ED?: No
[2021-07-22 06:43] LABS: ALT 87 U/L (4-49); AST 51 U/L (17-59); African American GFR (CKD) >90 (>60 ml/min/1.73 sqM); Albumin 5.5 g/dL (3.5-5.0); Alkaline Phosphatase 175 U/L (38-126); Anion Gap 35 mmol/L; Blood Urea Nitrogen 13 mg/dL (9-20); Chloride 95 mmol/L (98-107); Glucose 277 mg/dL (74-99); Non-African American GFR(CKD) >90 (>60 ml/min/1.73 sqM); Potassium 5.1 mmol/L (3.5-5.1); Sodium 139 mmol/L (137-145); Total Bilirubin 1.4 mg/dL (0.2-1.3); Total Protein 8.4 g/dL (6.3-8.2)
[2021-07-22] MEDS ORDERED: METOCLOPRAMIDE 5 MG/ML 2 ML VIAL IVP STA (06:50)
[2021-07-22 07:09] LABS: Appearance,Urine Clear (Clear); Bilirubin,Urine Negative (Negative); Blood,Urine Negative (Negative); Color,Urine Yellow; Glucose,Urine (UA) 4+ (Negative); Leukocyte Esterase,Urine Negative (Negative); Mucus,Urine Rare /hpf; Nitrite,Urine Negative (Negative); PH, Urine 5.5 (5.0-8.0); Protein,Urine 2+ (Negative); RBC,Urine 1 /hpf (0-5); Specific Gravity,Urine 1.022 (1.001-1.035); Urobilinogen,Urine <2.0 mg/dL (<2.0); WBC,Urine <1 /hpf (0-5)
[2021-07-22 07:14] LABS: Carbon Dioxide 9 mmol/L (22-30)
[2021-07-22] MEDS ORDERED: LORazepam 2 MG/ML INJ IV PRN ×2 (07:16)
[2021-07-22 07:35] LABS: Ketones,Urine 4+ (Negative)
[2021-07-22 08:11] LABS: Glucose,Whole Blood 278 mg/dL (75-99)
[2021-07-22] MEDS: SODIUM CHLORIDE 0.9% 1,000 ML IV SCH ×4 (08:13→17:58)
[2021-07-22] MEDS: THIAMINE 100 MG TAB PO SCH ×2 (08:13→18:40)
[2021-07-22] MEDS: D5-0.45% NACL WITH KCL 20MEQ/L 1,000 ML IV SCH ×2 (08:23→17:57)
[2021-07-22] MEDS: INSULIN REGULAR 100 UNIT in SODIUM CHLORIDE 0.9% 100 ML IV SCH ×2 (08:24→23:44)
[2021-07-22 08:44] VITALS: BMI 20.9
[2021-07-22 09:29] LABS: Glucose,Whole Blood 253 mg/dL (75-99)
[2021-07-22 10:29] LABS: Glucose,Whole Blood 229 mg/dL (75-99)
[2021-07-22 11:12] LABS: African American GFR (CKD) >90 (>60 ml/min/1.73 sqM); Anion Gap 19 mmol/L; Blood Urea Nitrogen 13 mg/dL (9-20); Carbon Dioxide 15 mmol/L (22-30); Chloride 100 mmol/L (98-107); Glucose 235 mg/dL (74-99); Non-African American GFR(CKD) >90 (>60 ml/min/1.73 sqM); Potassium 4.4 mmol/L (3.5-5.1); Sodium 134 mmol/L (137-145)
[2021-07-22] MEDS ORDERED: traZODone HCL 50 MG TAB PO PRN (11:28)
[2021-07-22 11:32] LABS: Glucose,Whole Blood 226 mg/dL (75-99)
[2021-07-22 13:08] LABS: Glucose,Whole Blood 184 mg/dL (75-99)
--- NOTE | 2021-07-22 13:26 | P.HPIM ---
History of Present Illness 40-year-old male came in with nausea vomiting and upper abdominal discomfort found to be in a diabetic ketoacidosis patient is presently on IV insulin with the care protocol. Patient has not been taking his insulin has been drinking alcohol hard liquor about a gallon a day for about a week. Patient does have history of alcoholism with multiple relapses and started drinking again about a week ago. Patient denies any significant depression. Patient presently has anion gap of 15 which improved from 25. Patient is feeling better with improvement in his metabolic acidosis. REVIEW OF SYSTEMS: CONSTITUTIONAL: No fever. HEENT: No recent visual problems or hearing problems. Denied any sore throat. CARDIOVASCULAR: No chest pain, orthopnea, PND, no palpitations, no syncope. PULMONARY: No shortness of breath, no cough, no hemoptysis. GASTROINTESTINAL: No diarrhea NEUROLOGICAL: No headaches, no weakness, no numbness. HEMATOLOGICAL: Denies any bleeding or petechiae. GENITOURINARY: Denies any burning micturition, frequency, or urgency. MUSCULOSKELETAL/RHEUMATOLOGICAL: Denies any joint pain, swelling, or any muscle pain. ENDOCRINE: Denies any polyuria or polydipsia. The rest of the 14-point review of systems is negative. PHYSICAL EXAMINATION: GENERAL: The patient is alert and oriented x3, not in any acute distress. Well developed, well nourished. HEENT: Pupils are round and equally reacting to light. EOMI. No scleral icterus. No conjunctival pallor. Normocephalic, atraumatic. No pharyngeal erythema. No thyromegaly. CARDIOVASCULAR: S1 and S2 present. No murmurs, rubs, or gallops. PULMONARY: Chest is clear to auscultation, no wheezing or crackles. ABDOMEN: Soft, nontender, nondistended, normoactive bowel sounds. No palpable organomegaly. MUSCULOSKELETAL: No joint swelling or deformity. EXTREMITIES: No cyanosis, clubbing, or pedal edema. NEUROLOGICAL: Gross neurological examination did not reveal any focal deficits. SKIN: No rashes. Assessment and plan -Diabetic ketoacidosis: Continue with the DKA protocol once anion gap resolves patient will be transitioned to long-acting subcutaneous insulin and after after that patient will be transitioned to normal saline and IV insulin will be discontinued, we will use sliding scale pre-meals. -Alcohol abuse: Excessive counseling was provided a social problems specialist will be consulted -alcohol withdrawal: Patient will be monitored for this and patient will be on Ativan CIWA protocol if patient doesn't have any significant withdrawals patient will be discharged tomorrow DVT prophylaxis: Ambulation Past Medical History Past Medical History: Diabetes Mellitus, GERD/Reflux Additional Past Medical History / Comment(s): IDDM pt states he has been told he is type 1 and told he is type II, neuropathy occasionally in bilateral toes/fingers, ETOH abuse, past DT's when withdrawing from alcohol, chronic pancreatitis History of Any Multi-Drug Resistant Organisms: None Reported Past Surgical History: No Surgical Hx Reported Past Anesthesia/Blood Transfusion Reactions: Unable to Obtain Additional Past Anesthesia/Blood Transfusion Reaction / Comment(s): Pt has never had surgery. Past Psychological History: Anxiety Smoking Status: Vaper Past Alcohol Use History: Abuse, Daily Past Drug Use History: None Reported - Past Family History Father Family Medical History: Diabetes Mellitus Mother History Unknown: Yes Medications and Allergies Home Medications Medication Instructions Recorded Confirmed Type INSULIN LISPRO (HumaLOG) [humaLOG] See Protocol SQ AC-TID 12/30/20 07/22/21 History Insulin Glargine,Hum.rec.anlog 20 unit SQ DAILY 12/30/20 07/22/21 History [Lantus Solostar Pen] Pantoprazole Sodium [Protonix] 40 mg PO DAILY 12/30/20 07/22/21 History traZODone HCL 50 mg PO HS PRN 12/30/20 07/22/21 History Magnesium Oxide 400 mg PO DAILY 05/10/21 07/22/21 History ALPRAZolam [Xanax] 0.25 mg PO HS PRN 07/22/21 07/22/21 History Folic Acid 1 mg PO DAILY 07/22/21 07/22/21 History Allergies Allergy/AdvReac Type Severity Reaction Status Date / Time No Known Allergies Allergy Verified 07/22/21 07:21 Physical Exam Vitals: Vital Signs Temp Pulse Resp BP Pulse Ox 07/22/21 11:22 99 18 147/83 99 07/22/21 08:27 105 H 18 125/74 95 07/22/21 06:49 106 H 18 127/81 99 07/22/21 05:53 98.4 F 116 H 20 109/78 97 Intake and Output 07/21/21 07/22/21 07/22/21 22:59 06:59 14:59 Other: Weight 66.224 kg 66.224 kg Results CBC & Chem 7: 07/22/21 06:18 07/22/21 10:39 Labs: Abnormal Lab Results - Last 24 Hours (Table) 07/22/21 07/22/21 07/22/21 Range/Units 06:01 06:18 06:30 Sodium (137-145) mmol/L Chloride 95 L (98-107) mmol/L Carbon Dioxide 9 L* (22-30) mmol/L Glucose 277 H (74-99) mg/dL POC Glucose (mg/dL) 256 H (75-99) mg/dL Total Bilirubin 1.4 H (0.2-1.3) mg/dL ALT 87 H (4-49) U/L Alkaline Phosphatase 175 H (38-126) U/L Total Protein 8.4 H (6.3-8.2) g/dL Albumin 5.5 H (3.5-5.0) g/dL Urine Protein 2+ H (Negative) Urine Glucose (UA) 4+ H (Negative) Urine Ketones 4+ H (Negative) Urine Mucus Rare H (None) /hpf 07/22/21 07/22/21 07/22/21 Range/Units 08:09 09:28 10:28 Sodium (137-145) mmol/L Chloride (98-107) mmol/L Carbon Dioxide (22-30) mmol/L Glucose (74-99) mg/dL POC Glucose (mg/dL) 278 H 253 H 229 H (75-99) mg/dL Total Bilirubin (0.2-1.3) mg/dL ALT (4-49) U/L Alkaline Phosphatase (38-126) U/L Total Protein (6.3-8.2) g/dL Albumin (3.5-5.0) g/dL Urine Protein (Negative) Urine Glucose (UA) (Negative) Urine Ketones (Negative) Urine Mucus (None) /hpf 07/22/21 07/22/21 07/22/21 Range/Units 10:39 11:31 13:01 Sodium 134 L (137-145) mmol/L Chloride (98-107) mmol/L Carbon Dioxide 15 L (22-30) mmol/L Glucose 235 H (74-99) mg/dL POC Glucose (mg/dL) 226 H 184 H (75-99) mg/dL Total Bilirubin (0.2-1.3) mg/dL ALT (4-49) U/L Alkaline Phosphatase (38-126) U/L Total Protein (6.3-8.2) g/dL Albumin (3.5-5.0) g/dL Urine Protein (Negative) Urine Glucose (UA) (Negative) Urine Ketones (Negative) Urine Mucus (None) /hpf
[2021-07-22 14:20] LABS: Glucose,Whole Blood 144 mg/dL (75-99)
[2021-07-22] MEDS: PANTOPRAZOLE 40 MG/10 ML VIAL IVP SCH (14:21)
[2021-07-22] MEDS: LORazepam 2 MG/ML INJ IV PRN ×3 (14:28→21:28)
[2021-07-22 14:45] LABS: African American GFR (CKD) >90 (>60 ml/min/1.73 sqM); Anion Gap 12 mmol/L; Blood Urea Nitrogen 14 mg/dL (9-20); Carbon Dioxide 22 mmol/L (22-30); Chloride 101 mmol/L (98-107); Glucose 166 mg/dL (74-99); Non-African American GFR(CKD) >90 (>60 ml/min/1.73 sqM); Potassium 4.3 mmol/L (3.5-5.1); Sodium 135 mmol/L (137-145)
[2021-07-22] MEDS ORDERED: INSULIN DETEMIR (LEVEMIR) 100 UNIT/ML SYR SQ STA (16:02)
[2021-07-22 16:53] LABS: Glucose,Whole Blood 114 mg/dL (75-99)
[2021-07-22 17:44] LABS: Glucose,Whole Blood 117 mg/dL (75-99)
[2021-07-22] MEDS: INSULIN ASPART (NovoLOG) 100 UNIT/ML VIAL SQ SCH ×2 (17:57→21:25)
[2021-07-22 18:32] LABS: Glucose,Whole Blood 186 mg/dL (75-99)
[2021-07-22 19:14] LABS: ALT 64 U/L (4-49); AST 54 U/L (17-59); African American GFR (CKD) >90 (>60 ml/min/1.73 sqM); Alkaline Phosphatase 94 U/L (38-126); Anion Gap 12 mmol/L; Blood Urea Nitrogen 15 mg/dL (9-20); Calcium 8.7 mg/dL (8.4-10.2); Carbon Dioxide 22 mmol/L (22-30); Chloride 100 mmol/L (98-107); Glucose 192 mg/dL (74-99); Non-African American GFR(CKD) >90 (>60 ml/min/1.73 sqM); Phosphorus 2.9 mg/dL (2.5-4.5); Potassium 3.8 mmol/L (3.5-5.1); Sodium 134 mmol/L (137-145); Total Bilirubin 1.8 mg/dL (0.2-1.3); Total Protein 6.1 g/dL (6.3-8.2)
[2021-07-22 20:10] LABS: Glucose,Whole Blood 150 mg/dL (75-99)
[2021-07-23] MEDS: SODIUM CHLORIDE 0.9% 1,000 ML IV SCH ×6 (03:12→11:55)
[2021-07-23] MEDS: LORazepam 2 MG/ML INJ IV PRN ×4 (03:38→14:34)
[2021-07-23 06:10] LABS: Glucose,Whole Blood 181 mg/dL (75-99)
[2021-07-23] MEDS ORDERED: INSULIN DETEMIR (LEVEMIR) 100 UNIT/ML SYR SQ SCH (07:00)
[2021-07-23] MEDS: INSULIN ASPART (NovoLOG) 100 UNIT/ML VIAL SQ SCH ×2 (07:06→12:18)
[2021-07-23] MEDS: THIAMINE 100 MG TAB PO SCH (07:40)
[2021-07-23] MEDS: PANTOPRAZOLE 40 MG/10 ML VIAL IVP SCH (08:36)
[2021-07-23] MEDS ORDERED: FOLIC ACID 1 MG TAB PO SCH (09:00)
[2021-07-23] MEDS ORDERED: MAGNESIUM OXIDE 400 MG TAB PO SCH (09:00)
[2021-07-23 10:33] LABS: African American GFR (CKD) >90 (>60 ml/min/1.73 sqM); Anion Gap 8 mmol/L; Blood Urea Nitrogen 14 mg/dL (9-20); Calcium 8.9 mg/dL (8.4-10.2); Carbon Dioxide 25 mmol/L (22-30); Chloride 101 mmol/L (98-107); Glucose 267 mg/dL (74-99); Magnesium 1.5 mg/dL (1.6-2.3); Non-African American GFR(CKD) >90 (>60 ml/min/1.73 sqM); Potassium 4.2 mmol/L (3.5-5.1); Sodium 134 mmol/L (137-145)
[2021-07-23] MEDS ORDERED: Magnesium Replacement Protocol 1 EACH MISC MISCELLANE PRN (11:08)
[2021-07-23 11:17] VITALS: RESP 17
[2021-07-23] MEDS: MAGNESIUM SULFATE-D5W PMX 1 GM in DEXTROSE/WATER 1 100ML.BAG IVPB SCH ×2 (11:55→13:09)
[2021-07-23 12:09] LABS: Glucose,Whole Blood 225 mg/dL (75-99)
[2021-07-23 13:47] VITALS: BP 119/81; PULSE 78; TEMP 98.7
--- NOTE | 2021-07-23 14:37 | P.DS ---
Providers Date of admission: 07/22/21 07:19 Attending physician: Jimmie Hodges Primary care physician: Stated None Hospital Course: Final diagnoses Diabetic ketoacidosis, patient was not taking Synthroid home, states that he did not have any syringes and needles Alcohol abuse, acute on chronic -Alcohol withdrawal discharged on Librium for 1 week -History of diabetes mellitus unclear whether type I or type 2 insulin-dependent with peripheral neuropathy History of alcohol withdrawal seizures in the past Chronic pancreatitis Anxiety Chronic nicotine use GI: Protonix Discharge disposition Patient is discharged home on oral librium taper for 1 week for acute alcohol withdrawal. Counseled extensively on cessation. We reffered him to Dr Sherwood's office as he does not have a PCP currently. Also escribed insulin syringes for patient, and instructed him that he needs to take insulin and follow up in the next couple days with a primary care doctor. Hospital Course This is a pleasant 40 year old male who presents to the hospital with nausea vomiting or abdominal discomfort that started about 2 days ago. Apparently for the last week patient has been drinking about 1 gallon of hard liquor every day for the last week. Patient is a history of chronic alcoholism currently states that prior to this he has not been drinking daily. He was admitted to the hospital with DKA, apparently over the last 3 days he ran out of insulin syringes. He was started on CIWA protocol. He is a daily smoker, reports remote THC use. He was started on an insulin gtt and was then converted to his home dose of insulin. Today he feels slightly shaky and sweaty, but denies any chest pain, chest pressure, palpitations. He denies any hallucinations, headache. He was able to eat breakfast without difficutly. Labs today show sodium of 134, potassium 4.2, magnesium 1.5. We replaced magnesium per protocol. Liver enzymes were mildly elevated, AST 51, ALT 87. ALT improving down to 64. Troponin was negative. COVID PCR is negative. Vital signs 119/81, heart rate 78, temperature 98.7, 99% on room air. 07/23/2021 Patient okay with discharge home later on today. He was tolerating diet well. He is okay discharging on librium, he had used this previously. Patient is co unseled extensively on alcohol cessation and lifestyle changes. Vital signs are stable today. Focal neurological exam is negative. Lungs are clear to auscultation, s1, s2 present regular rate and rhythm. Denies chest pain, chest pressure, cough, or shortness of breath. He required Ativan last night it looks like 1 time. Please see medication reconciliation for a list of current medications. Thank you for allowing us to participate in the care of this patient. Plan - Discharge Summary Discharge Rx Participant: No New Discharge Prescriptions: New Syringe and Needle,Insulin,1Ml [Insulin Syringe 29G 1/2" 1ml] 1 syr SQ DIRECTED #90 each Thiamine [Vitamin B-1] 100 mg PO BID-W/MEALS #60 tab chlordiazePOXIDE HCl [Librium] See Taper PO TID 3 Days #9 capsule Continue Pantoprazole Sodium [Protonix] 40 mg PO DAILY INSULIN LISPRO (HumaLOG) [humaLOG] See Protocol SQ AC-TID ALPRAZolam [Xanax] 0.25 mg PO HS PRN PRN Reason: Anxiety Folic Acid 1 mg PO DAILY traZODone HCL 50 mg PO HS PRN PRN Reason: Insomnia Insulin Glargine,Hum.rec.anlog [Lantus Solostar Pen] 20 unit SQ DAILY Magnesium Oxide 400 mg PO DAILY Discharge Medication List INSULIN LISPRO (HumaLOG) [humaLOG] See Protocol SQ AC-TID 12/30/20 [History] Insulin Glargine,Hum.rec.anlog [Lantus Solostar Pen] 20 unit SQ DAILY 12/30/20 [History] Pantoprazole Sodium [Protonix] 40 mg PO DAILY 12/30/20 [History] traZODone HCL 50 mg PO HS PRN 12/30/20 [History] Magnesium Oxide 400 mg PO DAILY 05/10/21 [History] ALPRAZolam [Xanax] 0.25 mg PO HS PRN 07/22/21 [History] Folic Acid 1 mg PO DAILY 07/22/21 [History] Syringe and Needle,Insulin,1Ml [Insulin Syringe 29G 1/2" 1ml] 1 syr SQ DIRECTED #90 each 07/23/21 [Rx] Thiamine [Vitamin B-1] 100 mg PO BID-W/MEALS #60 tab 07/23/21 [Rx] chlordiazePOXIDE HCl [Librium] See Taper PO TID 3 Days #9 capsule 07/23/21 [Rx] Follow up Appointment(s)/Referral(s): [facility] [NON-STAFF] - Kai Sherwood MD [STAFF PHYSICIAN] - 1 Week Patient Instructions/Handouts: Diabetic Ketoacidosis (DC) Discharge Disposition: HOME SELF-CARE
== END 2021-07-23 14:47 | disposition home or self-care (01) ==
LOC: EC 05:49 → INTOOBSV 07:19 → 3SCARD 07:19 → UNDODISIN 07-23 14:47
PROVIDERS: ADMIT Internal Medicine; ATTEND Internal Medicine
DX: E11.10 Type 2 diabetes mellitus with ketoacidosis without coma (principal); F10.239 Alcohol dependence with withdrawal, unspecified; E11.42 Type 2 diabetes mellitus with diabetic polyneuropathy; Z20.822 Contact with and (suspected) exposure to COVID-19; T38.3X6A Underdosing of insulin and oral hypoglycemic [antidiabetic] drugs, initial encounter; Z91.128 Patient's intentional underdosing of medication regimen for other reason; K86.1 Other chronic pancreatitis; F17.290 Nicotine dependence, other tobacco product, uncomplicated; K21.9 Gastro-esophageal reflux disease without esophagitis; F41.9 Anxiety disorder, unspecified; Z79.4 Long term (current) use of insulin; Z79.899 Other long term (current) drug therapy; Z71.41 Alcohol abuse counseling and surveillance of alcoholic; Z71.6 Tobacco abuse counseling; Z83.3 Family history of diabetes mellitus
CPT/HCPCS: 99291; 96376 ×3; 96365; 96375 ×2; 96361; 36415; 93005; 80051; 80053; 80048; 82565; 82009; 83735; 84100; 82947; 84520; 84484; 85025; 81001; 87635; G0378 ×2; J2060 ×2; J2765; J3475; C9113 ×2; 96374; 99285

== ENCOUNTER 2021-09-01 10:46 | Inpatient (IN) | payer OTHER ==
[2021-09-01 11:19] LABS: Glucose,Whole Blood 502 mg/dL (75-99)
[2021-09-01] MEDS ORDERED: SODIUM CHLORIDE 0.9% 1,000 ML IV ONE (11:29)
[2021-09-01] MEDS ORDERED: LORazepam 2 MG/ML INJ IV STA (11:52)
[2021-09-01] MEDS ORDERED: ONDANSETRON 4 MG/2 ML VIAL IVP STA (11:53)
[2021-09-01] MEDS ORDERED: PANTOPRAZOLE 40 MG/10 ML VIAL IVP STA (11:53)
[2021-09-01] MEDS ORDERED: MORPHINE SULFATE 4 MG/ML SYRINGE IVP STA (11:53)
[2021-09-01 12:07] LABS: Basophils # (A) 0.1 k/uL (0-0.2); Basophils % (A) 1 %; Eosinophils # (A) 0.1 k/uL (0-0.7); Eosinophils % (A) 1 %; HCT 47.9 % (39.0-53.0); HGB 16.2 gm/dL (13.0-17.5); Lymphocytes # (A) 1.1 k/uL (1.0-4.8); Lymphocytes % (A) 17 %; MCH 32.3 pg (25.0-35.0); MCHC 33.7 g/dL (31.0-37.0); MCV 95.6 fL (80.0-100.0); Mean Platelet Volume 8.2; Monocytes # (A) 0.3 k/uL (0-1.0); Monocytes % (A) 5 %; Neutrophils # (A) 4.5 k/uL (1.3-7.7); Neutrophils % (A) 74 %; Platelet Count 183 k/uL (150-450); RBC 5.02 m/uL (4.30-5.90); WBC 6.1 k/uL (3.8-10.6)
[2021-09-01 12:23] LABS: ALT 58 U/L (4-49); AST 38 U/L (17-59); African American GFR (CKD) >90 (>60 ml/min/1.73 sqM); Albumin 5.5 g/dL (3.5-5.0); Alkaline Phosphatase 181 U/L (38-126); Anion Gap 35 mmol/L; Blood Urea Nitrogen 15 mg/dL (9-20); Calcium 9.7 mg/dL (8.4-10.2); Chloride 90 mmol/L (98-107); Glucose 499 mg/dL (74-99); Lipase 46 U/L (23-300); Non-African American GFR(CKD) >90 (>60 ml/min/1.73 sqM); Sodium 133 mmol/L (137-145); Total Bilirubin 2.6 mg/dL (0.2-1.3); Total Protein 8.7 g/dL (6.3-8.2)
[2021-09-01 12:28] LABS: Carbon Dioxide 8 mmol/L (22-30)
[2021-09-01] MEDS ORDERED: THIAMINE 100 MG/ML 2 ML VIAL IM STA (12:37)
[2021-09-01] MEDS ORDERED: LORazepam 2 MG/ML INJ IV PRN (12:37)
--- NOTE | 2021-09-01 12:53 | ED ---
General Adult HPI - General Chief complaint: Upper Respiratory Infection Stated complaint: fever, weakness, vomiting Time Seen by Provider: 09/01/21 11:28 Source: patient, RN notes reviewed, old records reviewed Mode of arrival: ambulatory Limitations: no limitations - History of Present Illness Initial comments: 40-year-old male presenting with nausea vomiting, chills, epigastric abdominal pain. Patient is a type I diabetic. His sugars have been running high. He is concern for diabetic ketoacidosis. Additionally the patient admits to drinking upwards of a half gallon of liquor daily. He states his last drink was yesterday night. He does report significant vomiting. As well as minimal abdominal pain which is consistent with previous episodes. He has a mild cough, no measured fever but he has had chills. - Related Data Home Medications Medication Instructions Recorded Confirmed INSULIN LISPRO (HumaLOG) [humaLOG] See Protocol SQ AC-TID 12/30/20 09/01/21 Insulin Glargine,Hum.rec.anlog 20 - 25 unit SQ DAILY@1200 12/30/20 09/01/21 [Lantus Solostar Pen] Pantoprazole Sodium [Protonix] 40 mg PO DAILY 12/30/20 09/01/21 ALPRAZolam [Xanax] 0.25 mg PO HS PRN 07/22/21 09/01/21 Multivitamins, Thera [Multivitamin 1 tab PO DAILY 09/01/21 09/01/21 (formulary)] Previous Rx's Medication Instructions Recorded Thiamine [Vitamin B-1] 100 mg PO BID-W/MEALS #60 tab 07/23/21 Allergies Allergy/AdvReac Type Severity Reaction Status Date / Time No Known Allergies Allergy Verified 09/01/21 12:27 Review of Systems ROS Statement: Those systems with pertinent positive or pertinent negative responses have been documented in the HPI. ROS Other: All systems not noted in ROS Statement are negative. Past Medical History Past Medical History: Diabetes Mellitus, GERD/Reflux Additional Past Medical History / Comment(s): IDDM pt states he has been told he is type 1 and told he is type II, neuropathy occasionally in bilateral toes/fingers, ETOH abuse, past DT's 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 Past Psychological History: Anxiety Smoking Status: Vaper Past Alcohol Use History: Abuse, Daily Past Drug Use History: None Reported - Past Family History Father Family Medical History: Diabetes Mellitus Mother History Unknown: Yes Additional Family Medical History / Comment(s): Pt does not have contact with his mother. General Exam Limitations: no limitations General appearance: alert, in no apparent distress Head exam: Present: atraumatic, normocephalic Eye exam: Present: normal appearance ENT exam: Present: mucous membranes dry Neck exam: Present: normal inspection. Absent: tenderness, meningismus Respiratory exam: Present: normal lung sounds bilaterally. Absent: respiratory distress Cardiovascular Exam: Present: normal rhythm, tachycardia GI/Abdominal exam: Present: soft. Absent: distended, tenderness Extremities exam: Present: normal inspection, normal capillary refill. Absent: pedal edema Neurological exam: Present: alert, oriented X3 Psychiatric exam: Present: normal affect, normal mood Course Vital Signs 09/01/21 11:06 Temperature 98.4 F Pulse Rate 117 H Respiratory 22 Rate Blood Pressure 127/86 O2 Sat by Pulse 98 Oximetry Procedures - [place] Protocol (Time Out) Nurse: Georgia Islas Medical Decision Making - Medical Decision Making 32-year-old male presenting with nausea vomiting, abdominal pain, dehydration. Patient is a type I diabetic and daily drinker. Patient seems somewhat tremulous, he is dehydrated on exam. His workup reveals normal CBC. He has a CO2 of 8 and an anion gap of 35. His blood sugars 500. He is acetone positive. Urinalysis is pending. His coronavirus is negative. He started on IV fluids and IV insulin. He will be admitted to Dr. Hamilton who is aware for diabetic ketoacidosis. - Lab Data Result diagrams: 09/01/21 11:50 09/01/21 11:50 Lab Results 09/01/21 09/01/21 09/01/21 Range/Units 11:13 11:17 11:50 WBC 6.1 (3.8-10.6) k/uL RBC 5.02 (4.30-5.90) m/uL Hgb 16.2 (13.0-17.5) gm/dL Hct 47.9 (39.0-53.0) % MCV 95.6 (80.0-100.0) fL MCH 32.3 (25.0-35.0) pg MCHC 33.7 (31.0-37.0) g/dL RDW 12.0 (11.5-15.5) % Plt Count 183 (150-450) k/uL MPV 8.2 Neutrophils % 74 % Lymphocytes % 17 % Monocytes % 5 % Eosinophils % 1 % Basophils % 1 % Neutrophils # 4.5 (1.3-7.7) k/uL Lymphocytes # 1.1 (1.0-4.8) k/uL Monocytes # 0.3 (0-1.0) k/uL Eosinophils # 0.1 (0-0.7) k/uL Basophils # 0.1 (0-0.2) k/uL Sodium (137-145) mmol/L Potassium (3.5-5.1) mmol/L Chloride (98-107) mmol/L Carbon Dioxide (22-30) mmol/L Anion Gap mmol/L BUN (9-20) mg/dL Creatinine (0.66-1.25) mg/dL Est GFR (CKD-EPI)AfAm (>60 ml/min/1.73 sqM) Est GFR (CKD-EPI)NonAf (>60 ml/min/1.73 sqM) Glucose (74-99) mg/dL POC Glucose (mg/dL) 502 H (75-99) mg/dL POC Glu Dynamic Balancer ID Geronimo Jacobo Calcium (8.4-10.2) mg/dL Total Bilirubin (0.2-1.3) mg/dL AST (17-59) U/L ALT (4-49) U/L Alkaline Phosphatase (38-126) U/L Total Protein (6.3-8.2) g/dL Albumin (3.5-5.0) g/dL Lipase (23-300) U/L Acetone, Qual (Negative) Coronavirus (PCR) Not Detected (Not Detectd) 09/01/21 Range/Units 11:50 WBC (3.8-10.6) k/uL RBC (4.30-5.90) m/uL Hgb (13.0-17.5) gm/dL Hct (39.0-53.0) % MCV (80.0-100.0) fL MCH (25.0-35.0) pg MCHC (31.0-37.0) g/dL RDW (11.5-15.5) % Plt Count (150-450) k/uL MPV Neutrophils % % Lymphocytes % % Monocytes % % Eosinophils % % Basophils % % Neutrophils # (1.3-7.7) k/uL Lymphocytes # (1.0-4.8) k/uL Monocytes # (0-1.0) k/uL Eosinophils # (0-0.7) k/uL Basophils # (0-0.2) k/uL Sodium 133 L (137-145) mmol/L Potassium 5.0 (3.5-5.1) mmol/L Chloride 90 L (98-107) mmol/L Carbon Dioxide 8 L* (22-30) mmol/L Anion Gap 35 mmol/L BUN 15 (9-20) mg/dL Creatinine 0.95 (0.66-1.25) mg/dL Est GFR (CKD-EPI)AfAm >90 (>60 ml/min/1.73 sqM) Est GFR (CKD-EPI)NonAf >90 (>60 ml/min/1.73 sqM) Glucose 499 H (74-99) mg/dL POC Glucose (mg/dL) (75-99) mg/dL POC Glu Dynamic Balancer ID Calcium 9.7 (8.4-10.2) mg/dL Total Bilirubin 2.6 H (0.2-1.3) mg/dL AST 38 (17-59) U/L ALT 58 H (4-49) U/L Alkaline Phosphatase 181 H (38-126) U/L Total Protein 8.7 H (6.3-8.2) g/dL Albumin 5.5 H (3.5-5.0) g/dL Lipase 46 (23-300) U/L Acetone, Qual Positive (Negative) Coronavirus (PCR) (Not Detectd) Critical Care Time Critical Care Time: Yes Total Critical Care Time: 35 Disposition Clinical Impression: DKA (diabetic ketoacidoses), Alcohol withdrawal Disposition: ADMITTED IP TO THIS HOSP Condition: Serious Is patient prescribed a controlled substance at d/c from ED?: No Referrals: None,Stated [Primary Care Provider] - 1-2 days Decision to Admit Reason: Admit from EC Decision Date: 09/01/21 Decision Time: 13:01
[2021-09-01 12:58] LABS: Appearance,Urine Clear (Clear); Bacteria,Urine Rare /hpf; Bilirubin,Urine Negative (Negative); Blood,Urine Trace (Negative); Color,Urine Light Yellow; Glucose,Urine (UA) 4+ (Negative); Leukocyte Esterase,Urine Negative (Negative); Nitrite,Urine Negative (Negative); Protein,Urine 1+ (Negative); RBC,Urine <1 /hpf (0-5); Specific Gravity,Urine 1.024 (1.001-1.035); Squamous Epithelial Cell,Urine <1 /hpf (0-4); Urobilinogen,Urine <2.0 mg/dL (<2.0)
[2021-09-01 13:01] LABS: Ketones,Urine 4+ (Negative)
[2021-09-01] MEDS: INSULIN REGULAR 100 UNIT in SODIUM CHLORIDE 0.9% 100 ML IV SCH (13:28)
[2021-09-01 13:30] LABS: Glucose,Whole Blood 477 mg/dL (75-99)
[2021-09-01 14:31] LABS: Glucose,Whole Blood 414 mg/dL (75-99)
[2021-09-01] MEDS: SODIUM CHLORIDE 0.9% 1,000 ML IV SCH (14:39)
--- NOTE | 2021-09-01 16:15 | XR ---
EXAMINATION TYPE: XR chest 1V portable DATE OF EXAM: 09/01/2021 CLINICAL HISTORY: Cough and shortness of breath. Hypoglycemia. TECHNIQUE: Single AP portable frontal upright view of the chest is obtained. COMPARISON: None FINDINGS: There is no focal air space opacity, pleural effusion, or pneumothorax seen. The cardiac silhouette size is within normal limits. The osseous structures are intact. IMPRESSION: No acute pulmonary process.
[2021-09-01 16:23] LABS: Glucose,Whole Blood 255 mg/dL (75-99)
[2021-09-01 16:27] LABS: African American GFR (CKD) >90 (>60 ml/min/1.73 sqM); Anion Gap 27 mmol/L; Blood Urea Nitrogen 14 mg/dL (9-20); Carbon Dioxide 13 mmol/L (22-30); Chloride 94 mmol/L (98-107); Glucose 293 mg/dL (74-99); Non-African American GFR(CKD) >90 (>60 ml/min/1.73 sqM); Phosphorus 3.6 mg/dL (2.5-4.5); Sodium 134 mmol/L (137-145)
[2021-09-01] MEDS: PANTOPRAZOLE 40 MG/10 ML VIAL IVP SCH (16:42)
[2021-09-01] MEDS: NICOTINE 14MG/24HR PATCH TRANSDERM SCH (16:43)
[2021-09-01] MEDS: THIAMINE 100 MG TAB PO SCH (16:43)
[2021-09-01] MEDS: HYDROcodone/APAP 5-325MG 1 EACH TAB PO PRN (16:44)
[2021-09-01] MEDS: LORazepam 2 MG/ML INJ IV PRN (16:44)
[2021-09-01] MEDS: D5-0.45% NACL WITH KCL 20MEQ/L 1,000 ML IV SCH (16:53)
--- NOTE | 2021-09-01 16:59 | HP ---
HISTORY AND PHYSICAL DATE OF SERVICE: 09/01/2021. CHIEF COMPLAINTS: Fever, weakness, vomiting, diabetic ketoacidosis. HISTORY OF PRESENT ILLNESS: This 40-year-old gentleman with a past medical history of multiple medical problems, diabetes, GERD, anxiety, history of EtOH, being followed by primary physician the patient recently moved to the area. Patient being followed by Dr. Zepeda in the outpatient setting. The patient apparently drinking alcohol, almost a fifth every day and the patient also taking Lantus 20-25 units as well as scale, but the patient has not taken Lantus for a couple days because of fever, nausea, vomiting and unable to be able to keep anything down. The patient came to [facility] and was admitted for further evaluation and treatment. Covid 19 was negative and the patient has acute diabetic ketoacidosis with glucose 499, ketones were positive and CO2 was 18, indicating acute metabolic acidosis. Patient being closely monitored at this time. Patient also history of DTs also previously. There is no history of any rigors, chills, headache, loss of consciousness at this time. PAST MEDICAL: Diabetes mellitus, type 2, GERD, history of DVT, history of anxiety. MEDICATIONS: Home medications are: Insulin as mentioned earlier. Protonix, multivitamin, and Xanax. The doses are reviewed. ALLERGIES: None. FAMILY HISTORY: History of diabetes in the family. SOCIAL HISTORY: Previous history of smoking and alcohol as mentioned. Vaping. REVIEW OF SYSTEMS: ENT: No diminished vision. No diminished hearing. CARDIOVASCULAR: as mentioned earlier. RESPIRATORY: As mentioned earlier. GI: As mentioned earlier. : No dysuria. NERVOUS SYSTEM: No numbness or weakness. ALLERGY/IMMUNOLOGY: No asthma or hayfever. MUSCULOSKELETAL as mentioned earlier. HEMATOLOGY/ONCOLOGY: No history of anemia. ENDOCRINE: As mentioned earlier. CONSTITUTIONAL: As mentioned earlier. DERMATOLOGY: Negative. RHEUMATOLOGY: Negative. PSYCHIATRIC: As mentioned earlier. PHYSICAL EXAMINATION: Alert and oriented times three. Pulse 117, blood pressure 177/86, respiration 12, temperature 98.4, pulse ox 98% on room air. HEENT is conjunctivae normal. Oral mucosa moist. NECK is no jugular venous distention. No carotid bruit. No lymph node enlargement. CARDIOVASCULAR: S1, S2. RESPIRATORY: Breath sounds diminished in the bases. A few scattered rhonchi and crackles. ABDOMEN: Soft, nontender. No mass palpable. LEGS: No edema. No swelling. NERVOUS SYSTEM: Higher functions as mentioned earlier. Moves all 4 limbs. No focal motor or sensory deficits. LYMPHATICS: No lymph nodes palpable in the neck, axillae or groin. SKIN: No ulcer, no rash and no bleeding. JOINTS: No active deforming arthropathy. LABS: Sodium 133, potassium 5, CO2 8. Other labs are noted. ASSESSMENT: 1. Acute diabetic ketoacidosis. 2. Fever for evaluation. 3. Acute alcohol intoxication. 4. Acute alcohol withdrawal and delirium tremens early. 5. Alcoholic hepatitis. 6. Hyponatremia. 7. Acute metabolic acidosis. 8. History of gastroesophageal reflux disease. 9. History of peripheral neuropathy. 10.History of delirium tremens. 11.History of chronic pancreatitis. 12.History of anxiety. 13.History of nicotine dependence. 14.FULL CODE. RECOMMENDATIONS AND DISCUSSION: This 40-year-old gentleman who presented with multiple complex medical issues, we will monitor the patient closely, continue the current medications, management and symptomatic treatment, DKA protocol. Otherwise DT precautions. Repeat labs. Supplement vitamins. Symptomatic treatment will be provided. I will also recommend a chest x-ray and UA with micro. Prognosis guarded. Further recommendations to follow. A copy of this dictation is being forwarded to Dr. Zepeda who is the primary physician. Prognosis guarded. channel worker also will be consulted to evaluate for outpatient followup with alcohol rehab at this time. The patient also will require diabetic teaching as well. MMODL / IJN: [id number] / NIYA
[2021-09-01 17:39] LABS: Glucose,Whole Blood 227 mg/dL (75-99)
[2021-09-01 19:46] LABS: Glucose,Whole Blood 307 mg/dL (75-99)
[2021-09-01 21:32] LABS: Glucose,Whole Blood 257 mg/dL (75-99)
[2021-09-01 22:11] LABS: African American GFR (CKD) >90 (>60 ml/min/1.73 sqM); Anion Gap 15 mmol/L; Blood Urea Nitrogen 15 mg/dL (9-20); Carbon Dioxide 22 mmol/L (22-30); Chloride 96 mmol/L (98-107); Glucose 289 mg/dL (74-99); Non-African American GFR(CKD) >90 (>60 ml/min/1.73 sqM); Phosphorus 1.9 mg/dL (2.5-4.5); Potassium 4.2 mmol/L (3.5-5.1); Sodium 133 mmol/L (137-145)
[2021-09-01 23:06] LABS: Glucose,Whole Blood 189 mg/dL (75-99)
[2021-09-02 00:20] LABS: Glucose,Whole Blood 105 mg/dL (75-99)
[2021-09-02] MEDS: INSULIN REGULAR 100 UNIT in SODIUM CHLORIDE 0.9% 100 ML IV SCH ×2 (00:25→16:34)
[2021-09-02] MEDS: LORazepam 2 MG/ML INJ IV PRN ×5 (00:29→21:19)
[2021-09-02] MEDS: HYDROcodone/APAP 5-325MG 1 EACH TAB PO PRN ×3 (00:29→21:20)
[2021-09-02] MEDS: D5-0.45% NACL WITH KCL 20MEQ/L 1,000 ML IV SCH ×3 (00:51→22:20)
[2021-09-02] MEDS: TEMAZEPAM 15 MG CAP PO PRN ×2 (01:02→23:04)
[2021-09-02] MEDS: HEPARIN SODIUM,PORCINE/PF 5,000 UNIT/0.5 ML SYRINGE SQ SCH ×3 (01:03→21:19)
[2021-09-02] MEDS: SODIUM CHLORIDE 0.9% 1,000 ML IV SCH ×4 (01:03→22:20)
[2021-09-02] MEDS: PANTOPRAZOLE 40 MG/10 ML VIAL IVP SCH ×3 (01:04→21:19)
[2021-09-02 01:25] LABS: Glucose,Whole Blood 106 mg/dL (75-99)
[2021-09-02 02:28] LABS: Glucose,Whole Blood 107 mg/dL (75-99)
[2021-09-02 03:20] LABS: Glucose,Whole Blood 164 mg/dL (75-99)
[2021-09-02 04:28] LABS: Glucose,Whole Blood 203 mg/dL (75-99)
[2021-09-02 05:44] LABS: Glucose,Whole Blood 193 mg/dL (75-99)
[2021-09-02 07:08] LABS: Glucose,Whole Blood 256 mg/dL (75-99)
[2021-09-02 07:10] LABS: ALT 49 U/L (4-49); AST 47 U/L (17-59); African American GFR (CKD) >90 (>60 ml/min/1.73 sqM); Alkaline Phosphatase 106 U/L (38-126); Anion Gap 8 mmol/L; Blood Urea Nitrogen 17 mg/dL (9-20); Calcium 9.2 mg/dL (8.4-10.2); Carbon Dioxide 26 mmol/L (22-30); Chloride 98 mmol/L (98-107); Glucose 264 mg/dL (74-99); Non-African American GFR(CKD) >90 (>60 ml/min/1.73 sqM); Potassium 4.1 mmol/L (3.5-5.1); Sodium 132 mmol/L (137-145); Total Bilirubin 2.4 mg/dL (0.2-1.3); Total Protein 6.2 g/dL (6.3-8.2)
[2021-09-02 07:27] LABS: Basophils % (A) 1 %; Eosinophils # (A) 0.1 k/uL (0-0.7); Eosinophils % (A) 3 %; HCT 40.2 % (39.0-53.0); HGB 13.4 gm/dL (13.0-17.5); Lymphocytes # (A) 1.3 k/uL (1.0-4.8); Lymphocytes % (A) 33 %; MCH 31.5 pg (25.0-35.0); MCHC 33.3 g/dL (31.0-37.0); MCV 94.6 fL (80.0-100.0); Mean Platelet Volume 8.1; Monocytes # (A) 0.2 k/uL (0-1.0); Monocytes % (A) 6 %; Neutrophils # (A) 2.2 k/uL (1.3-7.7); Neutrophils % (A) 56 %; Platelet Count 135 k/uL (150-450); RBC 4.25 m/uL (4.30-5.90); RDW 12.8 % (11.5-15.5); WBC 3.9 k/uL (3.8-10.6)
[2021-09-02] MEDS: NICOTINE 14MG/24HR PATCH TRANSDERM SCH (08:34)
[2021-09-02] MEDS: THIAMINE 100 MG TAB PO SCH ×2 (08:34→17:38)
[2021-09-02 08:36] LABS: Glucose,Whole Blood 248 mg/dL (75-99)
[2021-09-02 10:57] LABS: Glucose,Whole Blood 513 mg/dL (75-99)
[2021-09-02] MEDS ORDERED: MULTIVITAMINS, THERA 1 EACH TAB PO SCH (12:00)
[2021-09-02 13:27] LABS: Glucose,Whole Blood 340 mg/dL (75-99)
--- NOTE | 2021-09-02 14:00 | PN ---
PROGRESS NOTE DATE OF SERVICE: 09/02/2021 This 40-year-old gentleman who was admitted with acute diabetic ketoacidosis and gastritis is being closely monitored at this time. The patient feeling sick. The patient is on insulin drip. The patient has already utilized over 120 units of insulin in less than 24 hours; probably in 18 to 20 hours. The patient is being closely monitored. Chest x-ray did not show an acute problem. CO2 is normal and anion gap seems to be closing also at this time. Past medical history reviewed. REVIEW OF SYSTEMS: CARDIOVASCULAR SYSTEM: No angina. RESPIRATION: As mentioned earlier. GI: As mentioned earlier. NERVOUS SYSTEM: Generally weak. CURRENT MEDICATIONS: Reviewed. They include Mobile, folic acid, heparin. The rest of the medications and doses are reviewed. PHYSICAL EXAMINATION: Patient alert and oriented x3. Pulse 70, blood pressure 109/88, respiration 18, temperature 98 degrees, pulse ox 98% on room air. HEENT: Conjunctivae normal. NECK: No jugular venous distention. CARDIOVASCULAR: S1, S2 muffled. RESPIRATION: Breath sounds diminished at the bases. A few scattered rhonchi. ABDOMEN: Soft. Mild diffuse discomfort. LEGS: No edema. No swelling. NERVOUS SYSTEM: No focal deficit. LABS: WBC 3.9, hemoglobin 13., sodium 132. Total bilirubin is 2.4. ASSESSMENT: 1. Acute diabetic ketoacidosis. 2. Fever for evaluation, improved. 3. Acute alcohol intoxication. 4. Acute alcohol withdrawal and delirium tremens, early. 5. Acute alcoholic hepatitis. 6. Hyponatremia. 7. Acute metabolic acidosis secondary to diabetic ketoacidosis. 8. History of gastroesophageal reflux disease. 9. History of peripheral neuropathy. 10.History of delirium tremens. 11.History of chronic pancreatitis. 12.Anxiety. 13.History of nicotine dependence. 14.FULL CODE. RECOMMENDATIONS AND DISCUSSION: I recommend to continue current medications, continue with the monitoring, symptomatic treatment. Continue the IV insulin drip. Anion gap, as mentioned earlier, seems to be closed at this time. If the sugars are less than 200, the patient may be transitioned to a combination of long-acting and short-acting insulins. Otherwise, the bilirubin is 2.5. LFTs are improving at this time. The UA is unremarkable. COVID-19 is negative. The blood sugars have been extremely high this morning. I would also recommend continued [facility] protocol, supplement the vitamins. Continue the rest of the medications. Prognosis is guarded because of multiple complex medical issues. Further recommendations to follow. MMODL / IJN: [id number] / NIYA
[2021-09-02] MEDS: FOLIC ACID 1 MG TAB PO SCH (14:04)
[2021-09-02 14:32] VITALS: BMI 23.2
[2021-09-02 15:07] LABS: Glucose,Whole Blood 351 mg/dL (75-99)
[2021-09-02] MEDS: INSULIN DETEMIR (LEVEMIR) 100 UNIT/ML SYR SQ SCH ×2 (15:19→21:30)
[2021-09-02 17:30] LABS: Glucose,Whole Blood 271 mg/dL (75-99)
[2021-09-02] MEDS: INSULIN ASPART (NovoLOG) 100 UNIT/ML VIAL SQ SCH ×3 (17:38→21:20)
[2021-09-03] MEDS: LORazepam 2 MG/ML INJ IV PRN ×4 (00:25→15:04)
[2021-09-03] MEDS: HYDROcodone/APAP 5-325MG 1 EACH TAB PO PRN ×3 (04:14→18:02)
[2021-09-03 04:25] LABS: Glucose,Whole Blood 124 mg/dL (75-99)
[2021-09-03 06:58] LABS: Glucose,Whole Blood 121 mg/dL (75-99)
[2021-09-03] MEDS: INSULIN ASPART (NovoLOG) 100 UNIT/ML VIAL SQ SCH ×7 (07:00→22:56)
[2021-09-03] MEDS: INSULIN DETEMIR (LEVEMIR) 100 UNIT/ML SYR SQ SCH ×2 (08:55→23:03)
[2021-09-03] MEDS: MULTIVITAMINS, THERA 1 EACH TAB PO SCH (08:55)
[2021-09-03] MEDS: HEPARIN SODIUM,PORCINE/PF 5,000 UNIT/0.5 ML SYRINGE SQ SCH ×2 (08:55→22:55)
[2021-09-03] MEDS: THIAMINE 100 MG TAB PO SCH ×2 (08:55→18:02)
[2021-09-03] MEDS: PANTOPRAZOLE 40 MG/10 ML VIAL IVP SCH ×2 (08:58→22:55)
[2021-09-03] MEDS: NICOTINE 14MG/24HR PATCH TRANSDERM SCH (08:58)
[2021-09-03 11:19] LABS: Glucose,Whole Blood 214 mg/dL (75-99)
[2021-09-03 14:38] LABS: Glucose,Whole Blood 290 mg/dL (75-99)
--- NOTE | 2021-09-03 15:28 | P.PN ---
Subjective Progress Note Date: 09/03/21 This is a 40-year-old male who was recently admitted with acute diabetic ketoacidosis and gastritis and being closely monitored. Patient also admits to drinking daily and is maintained on CIWA protocol with some mild tremens noted. Patient was maintained on insulin drip and currently transitioned over to 5 units 3 times a day with meals along with sliding scale and long-acting insulin 20 units twice daily. Patient states he normally uses 3 times daily insulin along with 20-25 units subcu daily of long-acting. Patient's blood sugars continue to be elevated and patient is tolerating diet and strongly encouraged strict consistent carb diet. Patient denies any nausea or vomiting at this time. Patient is afebrile. Will continue to monitor any further signs of withdrawal and encouraged oral intake. Review of systems: Constitutional: no reports of fatigue, no reports of fever, or chills Cardiovascular: No reports of chest pain or palpitations Respiratory: No reports of shortness of breath or cough GI: No reports of nausea, vomiting, or diarrhea : No reports of dysuria or retention Neurovascular: no Reports of weakness All medications have been reviewed Active Medications Hydrocodone Bitart/Acetaminophen (Hydrocodone/Apap 5-325mg 1 Each Tab) 1 each PO Q6HR PRN PRN Reason: Pain Last Admin: 09/03/21 11:22 Dose: 1 each Documented by: Folic Acid (Folic Acid 1 Mg Tab) 1 mg PO DAILY@1200 [facility] Last Admin: 09/02/21 14:04 Dose: 1 mg Documented by: Heparin Sodium (Porcine) (Heparin Sodium,Porcine/Pf 5,000 Unit/0.5 Ml Syringe) 5,000 unit SQ Q12HR [facility] Last Admin: 09/03/21 08:55 Dose: 5,000 unit Documented by: Insulin Aspart (Insulin Aspart (Novolog) 100 Unit/Ml Vial) 5 unit SQ AC-TID [facility] Last Admin: 09/03/21 15:07 Dose: 5 unit Documented by: Insulin Aspart (Insulin Aspart (Novolog) 100 Unit/Ml Vial) 0 unit SQ ACHS [facility]; Protocol Last Admin: 09/03/21 15:08 Dose: 5 unit Documented by: Insulin Detemir (Insulin Detemir (Levemir) 100 Unit/Ml Syr) 20 unit SQ BID [facility] Last Admin: 09/03/21 08:55 Dose: 20 unit Documented by: Lorazepam (Lorazepam 2 Mg/Ml Inj) 1 mg IV Q2HR PRN PRN Reason: CIWA 8 or 9 Last Admin: 09/03/21 15:04 Dose: 1 mg Documented by: Lorazepam (Lorazepam 2 Mg/Ml Inj) 1 mg IV Q1HR PRN PRN Reason: CIWA 10 to 15 Last Admin: 09/02/21 13:57 Dose: 1 mg Documented by: Multivitamins (Multivitamins, Thera 1 Each Tab) 1 each PO DAILY [facility] Last Admin: 09/03/21 08:55 Dose: 1 each Documented by: Nicotine (Nicotine 14mg/24hr Patch) 1 patch TRANSDERM DAILY [facility] Last Admin: 09/03/21 08:58 Dose: Not Given Documented by: Pantoprazole Sodium (Pantoprazole 40 Mg/10 Ml Vial) 40 mg IVP BID [facility] Last Admin: 09/03/21 08:58 Dose: 40 mg Documented by: Temazepam (Temazepam 15 Mg Cap) 15 mg PO HS PRN PRN Reason: Insomnia Last Admin: 09/02/21 23:04 Dose: 15 mg Documented by: Thiamine HCl (Thiamine 100 Mg Tab) 100 mg PO BID-W/MEALS [facility] Last Admin: 09/03/21 08:55 Dose: 100 mg Documented by: Physical exam: Gen: This is a 40-year-old male awake, and oriented 3. Temp is 97.8F, pulse is 86, respirations are 16, blood pressure is 120/83, oxygen saturation is 100% on room air HEENT: Head is atraumatic, normocephalic. Pupils equal, round. Sclerae is anicteric. NECK: Supple. No JVD. No lymphadenopathy. No thyromegaly. LUNGS: Diminished breath sounds bilaterally with a few scattered rhonchi noted. No intercostal retractions. HEART: S1, S2 are muffled ABDOMEN: Soft. Bowel sounds are present. No masses. No tenderness. EXTREMITIES: No pedal edema. No calf tenderness. NEUROLOGICAL: Patient is awake, alert and oriented 3, no focal deficits skin: No rashes or lesions noted Assessment: Acute diabetic ketoacidosis Fever for evaluation, improved Acute alcohol intoxication Acute alcohol withdrawal and delirium tremens, early Acute alcoholic hepatitis Hyponatremia acute metabolic acidosis secondary to diabetic ketoacidosis history of gastroesophageal reflux disease History of peripheral neuropathy History of delirium tremens history of chronic pancreatitis Anxiety History of nicotine dependence Full code Plan: Recommend to continue with current medications and management. Patient to continue CIWA protocol and monitor for any signs of withdrawal. Patient also maintained on long-acting twice daily along with pre-meal and sliding scale recommend to continue. Encouraged oral intake. Also encourage the patient increase activity as tolerated. Patient is having intermittent periods of nausea and will continue with Zofran as needed. Recommend continue to closely o bserve for 24 hours and encourage oral intake and monitor for tolerance with possible discharge in 24 hours. Also recommend outpatient follow-up with endocrinology and resources will be provided. Due to multiple complex medical issues, prognosis is guarded. Objective - Vital Signs Vital signs: Vital Signs Temp 97.8 F 09/03/21 11:20 Pulse 86 09/03/21 11:20 Resp 16 09/03/21 11:20 BP 120/83 09/03/21 11:20 Pulse Ox 100 09/03/21 11:20 Intake & Output 09/02/21 09/03/21 09/03/21 18:59 06:59 18:59 Intake Total 9.602 240 Balance 9.602 240 Weight 73.482 kg 73.482 kg Intake: Intake, IV Titration 9.602 Amount Insulin Regular 100 unit 9.602 In Sodium Chloride 0.9% 100 ml @ 0.1 UNITS/KG/HR 7.422 mls/hr IV .[id number] [facility] Rx#:[id number] Oral 240 Other: Voiding Method Toilet Toilet # Voids 2 2 - Labs CBC & Chem 7: 09/02/21 06:38 09/02/21 06:38 Labs: Abnormal Lab Results - Last 24 Hours (Table) 09/02/21 09/03/21 09/03/21 Range/Units 17:28 04:23 06:57 POC Glucose (mg/dL) 271 H 124 H 121 H (75-99) mg/dL 09/03/21 09/03/21 Range/Units 11:18 14:26 POC Glucose (mg/dL) 214 H 290 H (75-99) mg/dL Microbiology - Last 24 Hours (Table) 09/01/21 16:48 Blood Culture - Preliminary Blood No Growth after 24 hours
[2021-09-03 16:34] LABS: Glucose,Whole Blood 111 mg/dL (75-99)
[2021-09-03] MEDS: FOLIC ACID 1 MG TAB PO SCH (18:02)
[2021-09-03 20:18] LABS: Glucose,Whole Blood 94 mg/dL (75-99)
[2021-09-03] MEDS: TEMAZEPAM 15 MG CAP PO PRN (23:04)
[2021-09-04 06:17] LABS: Glucose,Whole Blood 193 mg/dL (75-99)
[2021-09-04] MEDS: HYDROcodone/APAP 5-325MG 1 EACH TAB PO PRN (06:29)
[2021-09-04] MEDS: THIAMINE 100 MG TAB PO SCH (06:30)
[2021-09-04 09:05] VITALS: TEMP 98.2
[2021-09-04] MEDS: NICOTINE 14MG/24HR PATCH TRANSDERM SCH (09:07)
[2021-09-04] MEDS: INSULIN DETEMIR (LEVEMIR) 100 UNIT/ML SYR SQ SCH (09:07)
[2021-09-04] MEDS: MULTIVITAMINS, THERA 1 EACH TAB PO SCH (09:17)
[2021-09-04] MEDS: LORazepam 2 MG/ML INJ IV PRN (09:17)
[2021-09-04] MEDS: INSULIN ASPART (NovoLOG) 100 UNIT/ML VIAL SQ SCH ×4 (09:17→11:38)
[2021-09-04] MEDS: PANTOPRAZOLE 40 MG/10 ML VIAL IVP SCH (09:18)
[2021-09-04] MEDS: HEPARIN SODIUM,PORCINE/PF 5,000 UNIT/0.5 ML SYRINGE SQ SCH (09:18)
[2021-09-04 11:36] LABS: Glucose,Whole Blood 113 mg/dL (75-99)
[2021-09-04 14:03] VITALS: BP 126/93; PULSE 98; RESP 18
--- NOTE | 2021-09-04 16:09 | P.DS ---
Providers Date of admission: 09/01/21 12:38 Expected date of discharge: 09/04/21 Attending physician: Efrain Hamilton MD Primary care physician: Stated None Hospital Course: Final diagnosis Acute diabetic ketoacidosis Fever for evaluation, improved Acute alcohol intoxication Acute alcohol withdrawal and delirium tremens, early Acute alcoholic hepatitis Hyponatremia acute metabolic acidosis secondary to diabetic ketoacidosis history of gastroesophageal reflux disease History of peripheral neuropathy History of delirium tremens history of chronic pancreatitis Anxiety History of nicotine dependence Full code Discharge disposition Patient is being discharged in a stable condition with guarded prognosis to home. Patient will follow-up with Dr. Zepeda in the outpatient setting upon discharge. Patient is to follow-up with endocrinology Dr. Rivas outpatient setting. Prescription was provided for needles and syringes along with insulin on discharge. Recommend repeat labs in 2-3 days and prescription was provided and patient will continue on Librium taper for alcohol withdrawal. Total time taken is greater than 35 minutes. Hospital course This is a 40-year-old male who was recently admitted with acute diabetic ketoacidosis and gastritis and being closely monitored. Patient was also found to be intoxicated with alcohol and early acute withdrawal and was maintained on CIWA protocol. Patient was hydrated and maintained on insulin drip and transitioned back to long-acting along with scheduled insulins and will continue with long-acting 20 gets twice daily along with sliding scale 3 times a day and encourage the patient to follow-up with endocrinology anti-glycemic control. Patient also instructed the continue to refrain from any alcohol intake and was given a Librium taper for discharge. Patient encouraged to follow-up with AA meetings and [facility] for possible alcohol rehab. Currently no reports of chest pain, shortness of breath, or palpitations. Patient is afebrile. No reports of nausea or vomiting and patient is tolerating diet. Patient will be discharged home today. Guarded prognosis. On exam vital signs are stable. Cardio S1, S2 are muffled. Respiratory system shows diminished breath sounds at the bases with no wheezing or rhonchi noted. Abdomen is soft and and nontender. Nervous system shows no focal deficits. Please refer to medication reconciliation sheet for a list of medications. Patient Condition at Discharge: Stable Plan - Discharge Summary Discharge Rx Participant: No New Discharge Prescriptions: New Folic Acid 1 mg PO DAILY@1200 #30 tab Nicotine 14Mg/24Hr Patch [Habitrol] 1 patch TRANSDERM DAILY #20 patch chlordiazePOXIDE HCl [Librium] 25 mg PO TID 3 Days #12 capsule Continue INSULIN LISPRO (HumaLOG) [humaLOG] See Protocol SQ AC-TID ALPRAZolam [Xanax] 0.25 mg PO HS PRN PRN Reason: Anxiety Thiamine [Vitamin B-1] 100 mg PO BID-W/MEALS #60 tab Multivitamins, Thera [Multivitamin (formulary)] 1 tab PO DAILY Changed Insulin Glargine,Hum.rec.anlog [Lantus Solostar Pen] 25 unit SQ BID #0 Pantoprazole Sodium [Protonix] 40 mg PO BID 14 Days #28 tab Discharge Medication List INSULIN LISPRO (HumaLOG) [humaLOG] See Protocol SQ AC-TID 12/30/20 [History] ALPRAZolam [Xanax] 0.25 mg PO HS PRN 07/22/21 [History] Thiamine [Vitamin B-1] 100 mg PO BID-W/MEALS #60 tab 07/23/21 [Rx] Multivitamins, Thera [Multivitamin (formulary)] 1 tab PO DAILY 09/01/21 [History] Folic Acid 1 mg PO DAILY@1200 #30 tab 09/04/21 [Rx] Insulin Glargine,Hum.rec.anlog [Lantus Solostar Pen] 25 unit SQ BID #0 09/04/21 [Rx] Nicotine 14Mg/24Hr Patch [Habitrol] 1 patch TRANSDERM DAILY #20 patch 09/04/21 [Rx] Pantoprazole Sodium [Protonix] 40 mg PO BID 14 Days #28 tab 09/04/21 [Rx] chlordiazePOXIDE HCl [Librium] 25 mg PO TID 3 Days #12 capsule 09/04/21 [Rx] Follow up Appointment(s)/Referral(s): Ulysses Zepeda MD [REFERRING] - 1 Week Nirmal Rivas MD [REFERRING] - 1 Week Ambulatory/Diagnostic Orders: Complete Blood Count w/diff [LAB.AMB] Time Frame: 2 Days, Location: None Selected Activity/Diet/Wound Care/Special Instructions: Activity Limited until follow-up Follow-up primary care provider on discharge Continue taking medications as prescribed Continue to monitor Accu-Cheks before meals and at bedtime and keep a diary for primary care follow-up Follow-up with endocrinology Continue consistent carb diet Repeat labs in 2-3 days Avoid alcohol intake Continue Librium taper as directed Discharge Disposition: HOME SELF-CARE
== END 2021-09-04 14:16 | disposition home or self-care (01) | DRG 638 ==
LOC: EC 10:46 → 1SOBS 12:38 → 3SCARD 15:27
PROVIDERS: ADMIT Internal Medicine; ATTEND Internal Medicine
DX: E10.10 Type 1 diabetes mellitus with ketoacidosis without coma (principal); F10.231 Alcohol dependence with withdrawal delirium; F10.221 Alcohol dependence with intoxication delirium; K86.1 Other chronic pancreatitis; E87.1 Hypo-osmolality and hyponatremia; E10.42 Type 1 diabetes mellitus with diabetic polyneuropathy; Z79.4 Long term (current) use of insulin; K70.10 Alcoholic hepatitis without ascites; Z20.822 Contact with and (suspected) exposure to COVID-19; E86.0 Dehydration; K29.70 Gastritis, unspecified, without bleeding; K21.9 Gastro-esophageal reflux disease without esophagitis; F41.9 Anxiety disorder, unspecified; R50.9 Fever, unspecified; F17.290 Nicotine dependence, other tobacco product, uncomplicated; Z71.6 Tobacco abuse counseling; Z79.899 Other long term (current) drug therapy; Z86.718 Personal history of other venous thrombosis and embolism; Z83.3 Family history of diabetes mellitus
CPT/HCPCS: 36415; 71045; 80051; 80053; 81001; 82009; 82565; 82947; 83690; 84100; 84520; 85025; 87040; 87635; 96361; 96365; 96366; 96372; 96375; 96376; 99291

== ENCOUNTER 2021-10-20 17:29 | Emergency (ER) | payer BC, OTHER ==
[2021-10-20 17:44] VITALS: BP 141/81; PULSE 104; RESP 16; TEMP 97.9
[2021-10-20 17:45] LABS: Glucose,Whole Blood 384 mg/dL (75-99)
[2021-10-20 18:05] LABS: Basophils % (A) 1 %; Eosinophils # (A) 0.2 k/uL (0-0.7); Eosinophils % (A) 2 %; HCT 46.4 % (39.0-53.0); HGB 15.9 gm/dL (13.0-17.5); Lymphocytes # (A) 1.8 k/uL (1.0-4.8); Lymphocytes % (A) 25 %; MCH 32.7 pg (25.0-35.0); MCHC 34.2 g/dL (31.0-37.0); MCV 95.6 fL (80.0-100.0); Mean Platelet Volume 7.6; Monocytes # (A) 0.2 k/uL (0-1.0); Monocytes % (A) 3 %; Neutrophils # (A) 4.9 k/uL (1.3-7.7); Neutrophils % (A) 68 %; Platelet Count 269 k/uL (150-450); RBC 4.86 m/uL (4.30-5.90); RDW 12.9 % (11.5-15.5); WBC 7.2 k/uL (3.8-10.6)
[2021-10-20 18:24] LABS: ALT 77 U/L (4-49); AST 119 U/L (17-59); African American GFR (CKD) >90 (>60 ml/min/1.73 sqM); Alkaline Phosphatase 196 U/L (38-126); Anion Gap 19 mmol/L; Blood Urea Nitrogen 16 mg/dL (9-20); Calcium 9.4 mg/dL (8.4-10.2); Carbon Dioxide 20 mmol/L (22-30); Chloride 97 mmol/L (98-107); Glucose 434 mg/dL (74-99); Non-African American GFR(CKD) >90 (>60 ml/min/1.73 sqM); Potassium 4.5 mmol/L (3.5-5.1); Sodium 136 mmol/L (137-145); Total Bilirubin 1.6 mg/dL (0.2-1.3); Total Protein 7.3 g/dL (6.3-8.2)
[2021-10-20] MEDS ORDERED: FOLIC ACID 1 MG TAB PO STA (19:35)
[2021-10-20] MEDS ORDERED: THIAMINE 100 MG/ML 2 ML VIAL IVP STA (19:35)
[2021-10-20] MEDS ORDERED: SODIUM CHLORIDE 0.9% 1,000 ML IV ONE (19:35)
[2021-10-20] MEDS ORDERED: ONDANSETRON 4 MG/2 ML VIAL IVP STA (19:39)
--- NOTE | 2021-10-20 19:49 | ED ---
Nausea/Vomiting/Diarrhea HPI - General Chief complaint: Nausea/Vomiting/Diarrhea Stated complaint: Vomiting Time Seen by Provider: 10/20/21 19:33 Source: patient, RN notes reviewed Mode of arrival: ambulatory Limitations: no limitations - History of Present Illness Initial comments: This is a pleasant 41-year-old male presents emergency Department with nausea and vomiting which started today. She concerned about DKA. Patient is a type I diabetic on insulin control. Patient also has a history of chronic pancreatitis and alcoholism. He states his last drink was about 5 hours ago. Patient had food content vomitus. No hematemesis or coffee-ground emesis. No hematochezia or melena. Patient has mild epigastric discomfort. Patient states he does have a history of gastritis as well. Laboratory investigations were ordered in triage. No headache, no fever or chills, no changes in vision or hearing, no sore throat or difficulty with speech, no neck pain, no chest pain or shortness of breath, no changes in urination or bowel movements, no numbness or tingling, no extremity pain, no skin rashes or lesions. MD complaint: nausea, vomiting - Related Data Home Medications Medication Instructions Recorded Confirmed INSULIN LISPRO (HumaLOG) [humaLOG] See Protocol SQ AC-TID 12/30/20 09/01/21 ALPRAZolam [Xanax] 0.25 mg PO HS PRN 07/22/21 09/01/21 Multivitamins, Thera [Multivitamin 1 tab PO DAILY 09/01/21 09/01/21 (formulary)] Previous Rx's Medication Instructions Recorded Thiamine [Vitamin B-1] 100 mg PO BID-W/MEALS #60 tab 07/23/21 Folic Acid 1 mg PO DAILY@1200 #30 tab 09/04/21 Insulin Glargine,Hum.rec.anlog 25 unit SQ BID #0 09/04/21 [Lantus Solostar Pen] Nicotine 14Mg/24Hr Patch [Habitrol] 1 patch TRANSDERM DAILY #20 patch 09/04/21 Pantoprazole Sodium [Protonix] 40 mg PO BID 14 Days #28 tab 09/04/21 chlordiazePOXIDE HCl [Librium] 25 mg PO TID 3 Days #12 capsule 09/04/21 Ondansetron [Zofran ODT] 4 mg PO Q8HR #20 tab 10/20/21 Allergies Allergy/AdvReac Type Severity Reaction Status Date / Time No Known Allergies Allergy Verified 10/20/21 17:44 Review of Systems ROS Statement: Those systems with pertinent positive or pertinent negative responses have been documented in the HPI. ROS Other: All systems not noted in ROS Statement are negative. Past Medical History Past Medical History: Diabetes Mellitus, GERD/Reflux Additional Past Medical History / Comment(s): IDDM pt states he has been told he is type 1 and told he is type II, neuropathy occasionally in bilateral toes/fingers, DKAs, ETOH abuse, past DT's/seizure 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 Past Psychological History: Anxiety Smoking Status: Vaper Past Alcohol Use History: Abuse, Daily, Heavy Past Drug Use History: None Reported - Past Family History Father Family Medical History: Diabetes Mellitus Mother History Unknown: Yes Additional Family Medical History / Comment(s): Pt does not have contact with his mother. General Exam - General Exam Comments Initial Comments: Patient in mild distress. However does not appear to be ill or toxic. Hydration. Blood sugar was noted be elevated on laboratory ordered in triage. There was no lipase ordered. This was added on. Limitations: no limitations General appearance: alert, in no apparent distress Head exam: Present: atraumatic, normocephalic, normal inspection Eye exam: Present: normal appearance, PERRL, EOMI. Absent: scleral icterus, conjunctival injection, periorbital swelling ENT exam: Present: normal exam, normal oropharynx, mucous membranes moist, TM's normal bilaterally, normal external ear exam Neck exam: Present: normal inspection. Absent: tenderness, meningismus, lymp hadenopathy Respiratory exam: Present: normal lung sounds bilaterally. Absent: respiratory distress, wheezes, rales, rhonchi, stridor Cardiovascular Exam: Present: regular rate, normal rhythm, normal heart sounds. Absent: systolic murmur, diastolic murmur, rubs, gallop, clicks GI/Abdominal exam: Present: soft, tenderness, normal bowel sounds. Absent: distended, guarding, rebound, rigid Extremities exam: Present: normal inspection, full ROM, normal capillary refill. Absent: tenderness, pedal edema, joint swelling, calf tenderness Back exam: Present: normal inspection Neurological exam: Present: alert, oriented X3, CN II-XII intact Psychiatric exam: Present: normal affect, normal mood Skin exam: Present: warm, dry, intact, normal color. Absent: rash Course Vital Signs 10/20/21 17:40 Temperature 97.9 F Pulse Rate 104 H Respiratory 16 Rate Blood Pressure 141/81 O2 Sat by Pulse 97 Oximetry - Reevaluation(s) Reevaluation #1: 10/20/21 21:42 Patient reevaluated and is resting comfortably. No vomiting here in the ER. Sugar is down to 353. No evidence of DKA or hyperosmolar state. Reevaluation #2: 10/20/21 22:28 Medical record is reviewed Symptoms are improved here in the emergency department Patient is informed of results and questions answered Patient in no distress Medical Decision Making - Medical Decision Making Lipase was added to the triage blood work. IV hydration, Zofran, folic acid, thiamine, plan for likely discharge is patient's acetone and anion gap were normal. Patient seen [facility] is essentially 0 patient rechecked prior to discharge and is in no distress. We'll treat the patient with antiemetics, clear liquid diet, follow-up with the general physician. Patient states she is moved up here to the area and his doctors in [place]. Follow-up with the local physician, Dr. Flores Patient was told to return to the ER for any signs or symptoms worsen. Told to return immediately if any other problems arise. All questions answered. Treatment plan discussed. Patient in agreement Every effort has been made to ensure accuracy of this dictation. However, due to the limitations of electronic medical records and dictation devices, errors in charting still occur. - Lab Data Result diagrams: 10/20/21 17:53 10/20/21 17:53 Lab Results 10/20/21 10/20/21 10/20/21 Range/Units 17:43 17:53 17:53 WBC 7.2 (3.8-10.6) k/uL RBC 4.86 (4.30-5.90) m/uL Hgb 15.9 (13.0-17.5) gm/dL Hct 46.4 (39.0-53.0) % MCV 95.6 (80.0-100.0) fL MCH 32.7 (25.0-35.0) pg MCHC 34.2 (31.0-37.0) g/dL RDW 12.9 (11.5-15.5) % Plt Count 269 (150-450) k/uL MPV 7.6 Neutrophils % 68 % Lymphocytes % 25 % Monocytes % 3 % Eosinophils % 2 % Basophils % 1 % Neutrophils # 4.9 (1.3-7.7) k/uL Lymphocytes # 1.8 (1.0-4.8) k/uL Monocytes # 0.2 (0-1.0) k/uL Eosinophils # 0.2 (0-0.7) k/uL Basophils # 0.0 (0-0.2) k/uL Sodium 136 L (137-145) mmol/L Potassium 4.5 (3.5-5.1) mmol/L Chloride 97 L (98-107) mmol/L Carbon Dioxide 20 L (22-30) mmol/L Anion Gap 19 mmol/L BUN 16 (9-20) mg/dL Creatinine 0.75 (0.66-1.25) mg/dL Est GFR (CKD-EPI)AfAm >90 (>60 ml/min/1.73 sqM) Est GFR (CKD-EPI)NonAf >90 (>60 ml/min/1.73 sqM) Glucose 434 H (74-99) mg/dL POC Glucose (mg/dL) 384 H (75-99) mg/dL POC Glu Manager Customer Service ID Geronimo Jacobo Calcium 9.4 (8.4-10.2) mg/dL Total Bilirubin 1.6 H (0.2-1.3) mg/dL AST 119 H (17-59) U/L ALT 77 H (4-49) U/L Alkaline Phosphatase 196 H (38-126) U/L Total Protein 7.3 (6.3-8.2) g/dL Albumin 5.0 (3.5-5.0) g/dL Lipase (23-300) U/L Urine Color Urine Appearance (Clear) Urine pH (5.0-8.0) Ur Specific [place] (1.001-1.035) Urine Protein (Negative) Urine Glucose (UA) (Negative) Urine Ketones (Negative) Urine Blood (Negative) Urine Nitrite (Negative) Urine Bilirubin (Negative) Urine Urobilinogen (<2.0) mg/dL Ur Leukocyte Esterase (Negative) Acetone, Qual Negative (Negative) 10/20/21 10/20/21 10/20/21 Range/Units 20:20 20:57 21:04 WBC (3.8-10.6) k/uL RBC (4.30-5.90) m/uL Hgb (13.0-17.5) gm/dL Hct (39.0-53.0) % MCV (80.0-100.0) fL MCH (25.0-35.0) pg MCHC (31.0-37.0) g/dL RDW (11.5-15.5) % Plt Count (150-450) k/uL MPV Neutrophils % % Lymphocytes % % Monocytes % % Eosinophils % % Basophils % % Neutrophils # (1.3-7.7) k/uL Lymphocytes # (1.0-4.8) k/uL Monocytes # (0-1.0) k/uL Eosinophils # (0-0.7) k/uL Basophils # (0-0.2) k/uL Sodium (137-145) mmol/L Potassium (3.5-5.1) mmol/L Chloride (98-107) mmol/L Carbon Dioxide (22-30) mmol/L Anion Gap mmol/L BUN (9-20) mg/dL Creatinine (0.66-1.25) mg/dL Est GFR (CKD-EPI)AfAm (>60 ml/min/1.73 sqM) Est GFR (CKD-EPI)NonAf (>60 ml/min/1.73 sqM) Glucose (74-99) mg/dL POC Glucose (mg/dL) 353 H (75-99) mg/dL POC Glu Manager Customer Service ID DulceNohemy Calcium (8.4-10.2) mg/dL Total Bilirubin (0.2-1.3) mg/dL AST (17-59) U/L ALT (4-49) U/L Alkaline Phosphatase (38-126) U/L Total Protein (6.3-8.2) g/dL Albumin (3.5-5.0) g/dL Lipase 62 (23-300) U/L Urine Color Light Yellow Urine Appearance Clear (Clear) Urine pH 5.0 (5.0-8.0) Ur Specific [place] 1.033 (1.001-1.035) Urine Protein Negative (Negative) Urine Glucose (UA) 4+ H (Negative) Urine Ketones 1+ H (Negative) Urine Blood Negative (Negative) Urine Nitrite Negative (Negative) Urine Bilirubin Negative (Negative) Urine Urobilinogen <2.0 (<2.0) mg/dL Ur Leukocyte Esterase Negative (Negative) Acetone, Qual (Negative) - EKG Data EKG Comments: EKG shows sinus rhythm with occasional PACs. Rate 84. Normal intervals other than the QRS duration of 146 ms. Left axis deviation, left anterior fascicular block, no evidence of acute changes. Compared to previous study from July 2021 this is a similar tracing. Review the ED attending physician. Disposition Clinical Impression: Hyperglycemia due to diabetes mellitus, Nausea & vomiting, Alcohol abuse, Alcoholic gastritis Disposition: HOME SELF-CARE Condition: Good Instructions (If sedation given, give patient instructions): Abuse of Alcohol (ED), Abuse of Alcohol (DC), Acute Nausea and Vomiting (ED), Acute Nausea and Vomiting (DC) Additional Instructions: Follow-up with your own primary care physician. If he did not have a primary care physician in follow-up with the one I have provided. All medications as directed. Clear liquids for the next 24 hours. Advance diet thereafter as tolerated. Patient was told to return to the ER for any signs or symptoms worsen. Told to return immediately if any other problems arise. All questions answered. Treatment plan discussed. Patient in agreement Every effort has been made to ensure accuracy of this dictation. However, due to the limitations of electronic medical records and dictation devices, errors in charting still occur. Prescriptions: Ondansetron [Zofran ODT] 4 mg PO Q8HR #20 tab Is patient prescribed a controlled substance at d/c from ED?: No Referrals: Erasmo Flores [STAFF PHYSICIAN] - 1-2 days Time of Disposition: 21:45
[2021-10-20] MEDS ORDERED: LORazepam 2 MG/ML INJ IV STA (20:43)
[2021-10-20 21:05] LABS: Glucose,Whole Blood 353 mg/dL (75-99)
[2021-10-20 21:06] LABS: Appearance,Urine Clear (Clear); Bilirubin,Urine Negative (Negative); Blood,Urine Negative (Negative); Color,Urine Light Yellow; Glucose,Urine (UA) 4+ (Negative); Ketones,Urine 1+ (Negative); Leukocyte Esterase,Urine Negative (Negative); Nitrite,Urine Negative (Negative); Protein,Urine Negative (Negative); Specific Gravity,Urine 1.033 (1.001-1.035); Urobilinogen,Urine <2.0 mg/dL (<2.0)
[2021-10-20] MEDS ORDERED: INSULN ASP PRT/INSULIN ASPART 100 UNIT/ML 10 ML VIAL SQ ONE (21:42)
[2021-10-20] MEDS ORDERED: SODIUM CHLORIDE 0.9% 500 ML 500 ML IV ONE (21:42)
[2021-10-20] MEDS ORDERED: MORPHINE SULFATE 4 MG/ML SYRINGE IV STA (21:59)
[2021-10-20 23:19] LABS: Glucose,Whole Blood 286 mg/dL (75-99)
== END 2021-10-20 23:20 | disposition home or self-care (01) ==
LOC: EC 17:29
DX: F17.209 Nicotine dependence, unspecified, with unspecified nicotine-induced disorders (principal); E11.65 Type 2 diabetes mellitus with hyperglycemia; F10.10 Alcohol abuse, uncomplicated; K29.20 Alcoholic gastritis without bleeding
CPT/HCPCS: 36415; 80053; 82009; 83690; 85025; 81003; 99284; 96374; 96375; 96361; 96372; J2060; J2270; J3411; J2405

== ENCOUNTER 2021-10-22 14:57 | Inpatient (IN) | payer BC, OTHER ==
[2021-10-22] MEDS ORDERED: PANTOPRAZOLE 40 MG/10 ML VIAL IVP STA (15:57)
[2021-10-22] MEDS ORDERED: MORPHINE SULFATE 4 MG/ML SYRINGE IV STA (15:57)
[2021-10-22] MEDS ORDERED: SODIUM CHLORIDE 0.9% 1,000 ML IV STA (15:57)
--- NOTE | 2021-10-22 16:00 | ED ---
General Adult HPI - General Chief complaint: Nausea/Vomiting/Diarrhea Stated complaint: Vomiting blood Time Seen by Provider: 10/22/21 15:55 Source: patient, RN notes reviewed, old records reviewed Mode of arrival: ambulatory Limitations: no limitations - History of Present Illness Initial comments: 41-year-old male presenting for evaluation of abdominal pain nausea vomiting. Patient has history of type 1 diabetes and recurrent episodes of DKA. He b elieves that he is in diabetic ketoacidosis currently. He also admits to heavy alcohol consumption. He states that he had 2 episode of vomiting today with some blood within the vomit. He reports abdominal pain which is consistent with previous episodes of both DKA pancreatitis. He denies fever. Since his last dose of insulin was yesterday. He was admitted to this hospital and released about 4 days ago. - Related Data Home Medications Medication Instructions Recorded Confirmed INSULIN LISPRO (HumaLOG) [humaLOG] See Protocol SQ AC-TID 12/30/20 10/22/21 ALPRAZolam [Xanax] 0.25 mg PO HS PRN 07/22/21 10/22/21 Multivitamins, Thera [Multivitamin 1 tab PO DAILY 09/01/21 10/22/21 (formulary)] Betamethasone Dipropionate 1 applic TOPICAL DAILY 10/20/21 10/22/21 [Betamethasone Dipropionate 0.05%] Folic Acid 0.4 mg PO DAILY 10/20/21 10/22/21 Insulin Glargine [Lantus Vial] 20 unit SQ DAILY 10/20/21 10/22/21 Naltrexone HCl [Revia] 50 mg PO DAILY 10/20/21 10/22/21 Nicotine 14Mg/24Hr Patch [Habitrol] 1 patch TRANSDERM DAILY PRN 10/20/21 10/22/21 Pantoprazole Sodium [Protonix] 20 mg PO DAILY 10/20/21 10/22/21 traZODone HCL 50 mg PO HS PRN 10/20/21 10/22/21 Previous Rx's Medication Instructions Recorded Thiamine [Vitamin B-1] 100 mg PO BID-W/MEALS #60 tab 07/23/21 Ondansetron [Zofran ODT] 4 mg PO Q8HR #20 tab 10/20/21 Allergies Allergy/AdvReac Type Severity Reaction Status Date / Time No Known Allergies Allergy Verified 10/22/21 16:55 Review of Systems ROS Statement: Those systems with pertinent positive or pertinent negative responses have been documented in the HPI. ROS Other: All systems not noted in ROS Statement are negative. Past Medical History Past Medical History: Diabetes Mellitus, GERD/Reflux Additional Past Medical History / Comment(s): IDDM pt states he has been told he is type 1 and told he is type II, neuropathy occasionally in bilateral toes/fingers, DKAs, ETOH abuse, past DT's/seizure 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 Past Psychological History: Anxiety Smoking Status: Vaper Past Alcohol Use History: Abuse, Daily, Heavy Past Drug Use History: None Reported - Past Family History Father Family Medical History: Diabetes Mellitus Mother History Unknown: Yes Additional Family Medical History / Comment(s): Pt does not have contact with his mother. General Exam Limitations: no limitations General appearance: alert, in no apparent distress Head exam: Present: atraumatic, normocephalic Eye exam: Present: normal appearance, PERRL ENT exam: Present: mucous membranes dry Neck exam: Present: normal inspection. Absent: tenderness, meningismus Respiratory exam: Present: normal lung sounds bilaterally. Absent: respiratory distress, wheezes Cardiovascular Exam: Present: regular rate, normal rhythm GI/Abdominal exam: Present: soft, tenderness. Absent: distended Extremities exam: Present: normal inspection, normal capillary refill Neurological exam: Present: alert, oriented X3, CN II-XII intact. Absent: motor sensory deficit Skin exam: Present: warm. Absent: dry, intact, cyanosis Course Vital Signs 10/22/21 10/22/21 15:33 17:12 Temperature 98.4 F Pulse Rate 95 96 Respiratory 18 18 Rate Blood Pressure 127/75 129/89 O2 Sat by Pulse 97 96 Oximetry Medical Decision Making - Medical Decision Making 41-year-old male presenting with nausea vomiting, suspected DKA. Patient has normal CBC. He has a CO2 of 13 and an anion gap of 26 he's ketone positive in both his urine and acetone positive. He has a mild lactic acidosis of 3.2. He is in DKA with only a mildly elevated sugar. He started on fluid resuscitation as well as IV insulin. He will be admitted for symptom control and acute management of diabetic ketoacidosis. He will be admitted to [facility]. They have been paged. - Lab Data Result diagrams: 10/22/21 16:22 10/22/21 16:22 Lab Results 10/22/21 10/22/21 10/22/21 Range/Units 16:02 16:22 16:22 WBC 4.2 (3.8-10.6) k/uL RBC 4.59 (4.30-5.90) m/uL Hgb 14.8 (13.0-17.5) gm/dL Hct 43.6 (39.0-53.0) % MCV 95.0 (80.0-100.0) fL MCH 32.2 (25.0-35.0) pg MCHC 33.9 (31.0-37.0) g/dL RDW 13.0 (11.5-15.5) % Plt Count 229 (150-450) k/uL MPV 7.5 Neutrophils % 53 % Lymphocytes % 40 % Monocytes % 3 % Eosinophils % 2 % Basophils % 1 % Neutrophils # 2.2 (1.3-7.7) k/uL Lymphocytes # 1.6 (1.0-4.8) k/uL Monocytes # 0.1 (0-1.0) k/uL Eosinophils # 0.1 (0-0.7) k/uL Basophils # 0.0 (0-0.2) k/uL PT 9.8 (9.0-12.0) sec INR 0.9 (<1.2) APTT 23.2 (22.0-30.0) sec Sodium (137-145) mmol/L Potassium (3.5-5.1) mmol/L Chloride (98-107) mmol/L Carbon Dioxide (22-30) mmol/L Anion Gap mmol/L BUN (9-20) mg/dL Creatinine (0.66-1.25) mg/dL Est GFR (CKD-EPI)AfAm (>60 ml/min/1.73 sqM) Est GFR (CKD-EPI)NonAf (>60 ml/min/1.73 sqM) Glucose (74-99) mg/dL POC Glucose (mg/dL) 211 H (75-99) mg/dL POC Glu Technician Trainee ID Stephanie Reeder Plasma Lactic Acid Brnuo (0.7-2.0) mmol/L Calcium (8.4-10.2) mg/dL Total Bilirubin (0.2-1.3) mg/dL AST (17-59) U/L ALT (4-49) U/L Alkaline Phosphatase (38-126) U/L Total Protein (6.3-8.2) g/dL Albumin (3.5-5.0) g/dL Amylase (30-110) U/L Lipase (23-300) U/L Urine Color Urine Appearance (Clear) Urine pH (5.0-8.0) Ur Specific Rillito (1.001-1.035) Urine Protein (Negative) Urine Glucose (UA) (Negative) Urine Ketones (Negative) Urine Blood (Negative) Urine Nitrite (Negative) Urine Bilirubin (Negative) Urine Urobilinogen (<2.0) mg/dL Ur Leukocyte Esterase (Negative) Urine RBC (0-5) /hpf Urine WBC (0-5) /hpf Urine Mucus (None) /hpf Acetone, Qual (Negative) 10/22/21 10/22/21 10/22/21 Range/Units 16:22 16:22 16:22 WBC (3.8-10.6) k/uL RBC (4.30-5.90) m/uL Hgb (13.0-17.5) gm/dL Hct (39.0-53.0) % MCV (80.0-100.0) fL MCH (25.0-35.0) pg MCHC (31.0-37.0) g/dL RDW (11.5-15.5) % Plt Count (150-450) k/uL MPV Neutrophils % % Lymphocytes % % Monocytes % % Eosinophils % % Basophils % % Neutrophils # (1.3-7.7) k/uL Lymphocytes # (1.0-4.8) k/uL Monocytes # (0-1.0) k/uL Eosinophils # (0-0.7) k/uL Basophils # (0-0.2) k/uL PT (9.0-12.0) sec INR (<1.2) APTT (22.0-30.0) sec Sodium 136 L (137-145) mmol/L Potassium 5.0 (3.5-5.1) mmol/L Chloride 97 L (98-107) mmol/L Carbon Dioxide 13 L (22-30) mmol/L Anion Gap 26 mmol/L BUN 12 (9-20) mg/dL Creatinine 0.80 (0.66-1.25) mg/dL Est GFR (CKD-EPI)AfAm >90 (>60 ml/min/1.73 sqM) Est GFR (CKD-EPI)NonAf >90 (>60 ml/min/1.73 sqM) Glucose 230 H (74-99) mg/dL POC Glucose (mg/dL) (75-99) mg/dL POC Glu Technician Trainee ID Plasma Lactic Acid Bruno 3.2 H* (0.7-2.0) mmol/L Calcium 9.0 (8.4-10.2) mg/dL Total Bilirubin 1.9 H (0.2-1.3) mg/dL AST 50 (17-59) U/L ALT 50 H (4-49) U/L Alkaline Phosphatase 179 H (38-126) U/L Total Protein 7.9 (6.3-8.2) g/dL Albumin 5.2 H (3.5-5.0) g/dL Amylase 35 (30-110) U/L Lipase 42 (23-300) U/L Urine Color Yellow Urine Appearance Clear (Clear) Urine pH 5.5 (5.0-8.0) Ur Specific Rillito 1.028 (1.001-1.035) Urine Protein 2+ H (Negative) Urine Glucose (UA) 4+ H (Negative) Urine Ketones 4+ H (Negative) Urine Blood Trace H (Negative) Urine Nitrite Negative (Negative) Urine Bilirubin Negative (Negative) Urine Urobilinogen <2.0 (<2.0) mg/dL Ur Leukocyte Esterase Negative (Negative) Urine RBC <1 (0-5) /hpf Urine WBC <1 (0-5) /hpf Urine Mucus Rare H (None) /hpf Acetone, Qual Positive (Negative) Disposition Clinical Impression: DKA (diabetic ketoacidoses), Nausea and vomiting, Dehydration Disposition: ADMITTED IP TO THIS HOSP Condition: Stable Is patient prescribed a controlled substance at d/c from ED?: No Referrals: Cole Emmanuel MD [Primary Care Provider] - 1-2 days Decision to Admit Reason: Admit from EC Decision Date: 10/22/21 Decision Time: 17:47
[2021-10-22 16:05] LABS: Glucose,Whole Blood 211 mg/dL (75-99)
[2021-10-22 16:32] LABS: Basophils % (A) 1 %; Eosinophils # (A) 0.1 k/uL (0-0.7); Eosinophils % (A) 2 %; HCT 43.6 % (39.0-53.0); HGB 14.8 gm/dL (13.0-17.5); Lymphocytes # (A) 1.6 k/uL (1.0-4.8); Lymphocytes % (A) 40 %; MCH 32.2 pg (25.0-35.0); MCHC 33.9 g/dL (31.0-37.0); Mean Platelet Volume 7.5; Monocytes # (A) 0.1 k/uL (0-1.0); Monocytes % (A) 3 %; Neutrophils # (A) 2.2 k/uL (1.3-7.7); Neutrophils % (A) 53 %; Platelet Count 229 k/uL (150-450); RBC 4.59 m/uL (4.30-5.90); WBC 4.2 k/uL (3.8-10.6)
[2021-10-22 16:38] LABS: Appearance,Urine Clear (Clear); Bilirubin,Urine Negative (Negative); Blood,Urine Trace (Negative); Color,Urine Yellow; Glucose,Urine (UA) 4+ (Negative); Leukocyte Esterase,Urine Negative (Negative); Mucus,Urine Rare /hpf; Nitrite,Urine Negative (Negative); PH, Urine 5.5 (5.0-8.0); Protein,Urine 2+ (Negative); RBC,Urine <1 /hpf (0-5); Specific Gravity,Urine 1.028 (1.001-1.035); Urobilinogen,Urine <2.0 mg/dL (<2.0); WBC,Urine <1 /hpf (0-5)
[2021-10-22 16:42] LABS: INR 0.9 (<1.2); Prothrombin Time 9.8 sec (9.0-12.0)
[2021-10-22 16:43] LABS: Partial Thromboplastin Time 23.2 sec (22.0-30.0)
[2021-10-22 16:44] LABS: ALT 50 U/L (4-49); African American GFR (CKD) >90 (>60 ml/min/1.73 sqM); Albumin 5.2 g/dL (3.5-5.0); Amylase 35 U/L (30-110); Anion Gap 26 mmol/L; Blood Urea Nitrogen 12 mg/dL (9-20); Carbon Dioxide 13 mmol/L (22-30); Chloride 97 mmol/L (98-107); Glucose 230 mg/dL (74-99); Lipase 42 U/L (23-300); Non-African American GFR(CKD) >90 (>60 ml/min/1.73 sqM); Sodium 136 mmol/L (137-145); Total Bilirubin 1.9 mg/dL (0.2-1.3); Total Protein 7.9 g/dL (6.3-8.2)
[2021-10-22 16:45] LABS: AST 50 U/L (17-59); Alkaline Phosphatase 179 U/L (38-126)
[2021-10-22] MEDS ORDERED: ONDANSETRON 4 MG/2 ML VIAL IVP STA (16:55)
[2021-10-22 16:58] LABS: Ketones,Urine 4+ (Negative)
[2021-10-22] MEDS ORDERED: THIAMINE 100 MG/ML 2 ML VIAL IM STA (17:47)
[2021-10-22] MEDS ORDERED: LORazepam 2 MG/ML INJ IV PRN (17:47)
[2021-10-22] MEDS: THIAMINE 100 MG TAB PO SCH (18:27)
[2021-10-22] MEDS: INSULIN REGULAR 100 UNIT in SODIUM CHLORIDE 0.9% 100 ML IV SCH (18:28)
[2021-10-22] MEDS: D5-0.45% NACL WITH KCL 20MEQ/L 1,000 ML IV SCH (18:42)
[2021-10-22] MEDS: SODIUM CHLORIDE 0.9% 1,000 ML IV SCH (18:43)
[2021-10-22 18:53] LABS: Glucose,Whole Blood 205 mg/dL (75-99)
[2021-10-22 20:08] LABS: African American GFR (CKD) >90 (>60 ml/min/1.73 sqM); Anion Gap 25 mmol/L; Blood Urea Nitrogen 12 mg/dL (9-20); Carbon Dioxide 12 mmol/L (22-30); Chloride 100 mmol/L (98-107); Glucose 172 mg/dL (74-99); Non-African American GFR(CKD) >90 (>60 ml/min/1.73 sqM); Phosphorus 2.5 mg/dL (2.5-4.5); Potassium 4.2 mmol/L (3.5-5.1); Sodium 137 mmol/L (137-145)
[2021-10-22 21:18] LABS: Glucose,Whole Blood 90 mg/dL (75-99)
[2021-10-22] MEDS: LORazepam 2 MG/ML INJ IV PRN ×2 (21:41→22:51)
[2021-10-22] MEDS: PANTOPRAZOLE 40 MG/10 ML VIAL IVP SCH (21:42)
[2021-10-22 21:56] LABS: Glucose,Whole Blood 105 mg/dL (75-99)
[2021-10-22 22:24] LABS: Glucose,Whole Blood 147 mg/dL (75-99)
[2021-10-22 23:12] LABS: Glucose,Whole Blood 171 mg/dL (75-99)
[2021-10-22] MEDS: MORPHINE SULFATE 2 MG/ML SYRINGE IVP PRN (23:20)
[2021-10-22] MEDS: ONDANSETRON 4 MG/2 ML VIAL IVP PRN (23:20)
[2021-10-23 00:11] LABS: Glucose,Whole Blood 163 mg/dL (75-99)
[2021-10-23 00:19] LABS: African American GFR (CKD) >90 (>60 ml/min/1.73 sqM); Anion Gap 14 mmol/L; Blood Urea Nitrogen 13 mg/dL (9-20); Carbon Dioxide 20 mmol/L (22-30); Chloride 99 mmol/L (98-107); Glucose 165 mg/dL (74-99); Non-African American GFR(CKD) >90 (>60 ml/min/1.73 sqM); Phosphorus 2.1 mg/dL (2.5-4.5); Potassium 4.2 mmol/L (3.5-5.1); Sodium 133 mmol/L (137-145)
[2021-10-23 01:05] LABS: Glucose,Whole Blood 150 mg/dL (75-99)
[2021-10-23] MEDS: SODIUM CHLORIDE 0.9% 1,000 ML IV SCH ×4 (01:11→12:24)
[2021-10-23] MEDS: LORazepam 2 MG/ML INJ IV PRN ×6 (01:14→20:19)
[2021-10-23 02:05] LABS: Glucose,Whole Blood 124 mg/dL (75-99)
[2021-10-23 03:18] LABS: Glucose,Whole Blood 140 mg/dL (75-99)
[2021-10-23 04:17] LABS: Glucose,Whole Blood 146 mg/dL (75-99)
[2021-10-23] MEDS: D5-0.45% NACL WITH KCL 20MEQ/L 1,000 ML IV SCH ×2 (04:42→09:02)
[2021-10-23] MEDS: THIAMINE 100 MG TAB PO SCH ×2 (05:40→17:43)
[2021-10-23] MEDS: MORPHINE SULFATE 2 MG/ML SYRINGE IVP PRN (05:40)
[2021-10-23 05:45] LABS: Glucose,Whole Blood 178 mg/dL (75-99)
[2021-10-23 06:04] LABS: African American GFR (CKD) >90 (>60 ml/min/1.73 sqM); Anion Gap 11 mmol/L; Blood Urea Nitrogen 12 mg/dL (9-20); Carbon Dioxide 25 mmol/L (22-30); Chloride 98 mmol/L (98-107); Glucose 186 mg/dL (74-99); Non-African American GFR(CKD) >90 (>60 ml/min/1.73 sqM); Phosphorus 2.9 mg/dL (2.5-4.5); Potassium 4.4 mmol/L (3.5-5.1); Sodium 134 mmol/L (137-145)
[2021-10-23 07:04] LABS: Glucose,Whole Blood 214 mg/dL (75-99)
[2021-10-23 08:22] LABS: Glucose,Whole Blood 237 mg/dL (75-99)
[2021-10-23] MEDS ORDERED: NICOTINE 14MG/24HR PATCH TRANSDERM PRN (08:54)
[2021-10-23] MEDS ORDERED: traZODone HCL 50 MG TAB PO PRN (08:54)
[2021-10-23] MEDS ORDERED: ALPRAZolam 0.25 MG TAB PO PRN (08:54)
[2021-10-23] MEDS: PANTOPRAZOLE 40 MG/10 ML VIAL IVP SCH ×2 (09:02→20:19)
[2021-10-23] MEDS: MULTIVITAMINS, THERA 1 EACH TAB PO SCH (09:03)
[2021-10-23] MEDS: FOLIC ACID 1 MG TAB PO SCH (09:03)
[2021-10-23 09:04] LABS: Glucose,Whole Blood 227 mg/dL (75-99)
[2021-10-23] MEDS: INSULIN REGULAR 100 UNIT in SODIUM CHLORIDE 0.9% 100 ML IV SCH (09:06)
[2021-10-23 09:47] LABS: African American GFR (CKD) >90 (>60 ml/min/1.73 sqM); Anion Gap 10 mmol/L; Blood Urea Nitrogen 12 mg/dL (9-20); Carbon Dioxide 24 mmol/L (22-30); Chloride 99 mmol/L (98-107); Glucose 243 mg/dL (74-99); Non-African American GFR(CKD) >90 (>60 ml/min/1.73 sqM); Phosphorus 2.7 mg/dL (2.5-4.5); Potassium 4.6 mmol/L (3.5-5.1); Sodium 133 mmol/L (137-145)
[2021-10-23 10:28] LABS: Glucose,Whole Blood 383 mg/dL (75-99)
[2021-10-23 11:12] LABS: Glucose,Whole Blood 338 mg/dL (75-99)
[2021-10-23 11:35] LABS: African American GFR (CKD) >90 (>60 ml/min/1.73 sqM); Anion Gap 9 mmol/L; Blood Urea Nitrogen 11 mg/dL (9-20); Carbon Dioxide 24 mmol/L (22-30); Chloride 98 mmol/L (98-107); Non-African American GFR(CKD) >90 (>60 ml/min/1.73 sqM); Phosphorus 2.6 mg/dL (2.5-4.5); Potassium 4.8 mmol/L (3.5-5.1); Sodium 131 mmol/L (137-145)
--- NOTE | 2021-10-23 11:45 | P.HPIM ---
History of Present Illness H&P Date: 10/23/21 This is a 41-year-old male who presents to the emergency room with complaints of abdominal pain associated nausea vomiting. Patient has reported blood in the vomit. However vomiting has resolved and patient came to the hospital. States that he vomits only when he drinks alcohol which is daily when he binges. Patient has a medical history significant for GERD, chronic pancreatitis, diabetes mellitus questionable whether type I or type II has been a diabetic for around 3 and a half years, most probably type I with recurrent episodes of DKA. Uses lantus and humalog at home, states he has not taken his insulin for 1.5 days as he has been drinking. 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 Patient also is a chronic heavy daily alcohol user admits to drinking 1/5 per day, Occasional tobacco use. Follows with Dr Cholo Galvan in the primary care office, has an appointment with Dr Rivas for endo at the end of this month. Reports having a scope done in the past, seems to be referring more to a POLO than EGD, patient is unsure what it was for states about 1.5 years ago he had it done. Patient recently admitted to the hospital 4 days ago for vomiting and also in August of this year for DKA. Labs on admission show unremarkable blood count panel, INR 0.9, sodium 136, potassium 5.0, chloride 97, CO2 13, BUN 12, creatinine 0.80, blood glucose in the 200s, lactic acid 3.2, bili 1.9, ALT 50, alk phos 179, albumin 5.2, urinalysis shows positive protein glucose ketones and he is acetone positive. Patient admitted to the hospital with diabetic ketoacidosis was started on insulin drip received a 1 L fluid bolus. DKA has since resolved with anion gap 9 and CO2 24 patient can transition off the insulin gtt to levemir 23 units and novolog. REVIEW OF SYSTEMS: CONSTITUTIONAL: No fever, no malaise, no fatigue. HEENT: No recent visual problems or hearing problems. Denied any sore throat. CARDIOVASCULAR: No chest pain, orthopnea, PND, no palpitations, no syncope. PULMONARY: No shortness of breath, no cough, no hemoptysis. GASTROINTESTINAL: No diarrhea, no nausea, reports mild epigastric abdominal pain, tenderness, and vomiting x 5 episodes at home with blood. None currently. states his bowel movements are "basically oil" NEUROLOGICAL: No headaches, no weakness, no numbness. HEMATOLOGICAL: Denies any bleeding or petechiae. GENITOURINARY: Denies any burning micturition, frequency, or urgency. MUSCULOSKELETAL/RHEUMATOLOGICAL: Denies any joint pain, swelling, or any muscle pain. ENDOCRINE: Denies any polyuria or polydipsia. The rest of the 14-point review of systems is negative. PHYSICAL EXAMINATION: GENERAL: The patient is alert and oriented x3, not in any acute distress. Well developed, well nourished. HEENT: Pupils are round and equally reacting to light. EOMI. No scleral icterus. No conjunctival pallor. Normocephalic, atraumatic. No pharyngeal erythema. No thyromegaly. CARDIOVASCULAR: S1 and S2 present. No murmurs, rubs, or gallops. PULMONARY: Chest is clear to auscultation, no wheezing or crackles. ABDOMEN: Soft, mild tender epigastric region, nondistended, normoactive bowel sounds. No palpable organomegaly. MUSCULOSKELETAL: No joint swelling or deformity. EXTREMITIES: No cyanosis, clubbing, or pedal edema. NEUROLOGICAL: Gross neurological examination did not reveal any focal deficits. SKIN: No rashes. Assessment and plan Assessment Diabetic Ketoacidosis started on insulin gtt in the EC, anion gap has since closed will transition to levemir increased to 23 units from home does and novolog scheduled and with meals. Nausea/vomiting secondary to gastritis from chronic alcohol abuse Anion gap metabolic acidosis secondary to diabetic ketoacidosis, resolved currently Acute alcohol withdrawal Acute alcoholic hepatitis Alcoholic gastritis with history of GERD and reports of blood in the vomit on IV protonix Hyponatremia, probably dilutional from IV fluids, normal on admission Diabetes Mellitus, uncontrolled, most recent A1C documented in Jun was 12.0 Chronic daily alcohol abuse History of delirium tremens Chronic nicotine use History of peripheral neuropathy Anxiety GI Prophylaxis DVT Prophylaxis Plan Transition to levemir Monitor blood glucose Continue IV fluids Monitor hemoglobin Advance Diet Past Medical History Past Medical History: Diabetes Mellitus, GERD/Reflux Additional Past Medical History / Comment(s): IDDM pt states he has been told he is type 1 and told he is type II, neuropathy occasionally in bilateral toes/fingers, DKAs, ETOH abuse, past DT's/seizure 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 Past Psychological History: Anxiety Additional Psychological History / Comment(s): Pt resides with his girlfriend. He has a glucometer. Smoking Status: Current every day smoker, Vaper Past Alcohol Use History: Abuse, Daily, Heavy Additional Past Alcohol Use History / Comment(s): Pt started smoking in 1995 and smokes approximately 2 cigarettes a day. He states he vapes daily as well. Pt states he drinks between 1/5 and 1/2 gallon of vodka daily. Past Drug Use History: None Reported - Past Family History Father Family Medical History: Diabetes Mellitus Mother History Unknown: Yes Additional Family Medical History / Comment(s): Pt does not have contact with his mother. Medications and Allergies Home Medications Medication Instructions Recorded Confirmed Type INSULIN LISPRO (HumaLOG) [humaLOG] See Protocol SQ AC-TID 12/30/20 10/22/21 History ALPRAZolam [Xanax] 0.25 mg PO HS PRN 07/22/21 10/22/21 History Thiamine [Vitamin B-1] 100 mg PO BID-W/MEALS #60 tab 07/23/21 10/22/21 Rx Multivitamins, Thera [Multivitamin 1 tab PO DAILY 09/01/21 10/22/21 History (formulary)] Betamethasone Dipropionate 1 applic TOPICAL DAILY 10/20/21 10/22/21 History [Betamethasone Dipropionate 0.05%] Folic Acid 0.4 mg PO DAILY 10/20/21 10/22/21 History Insulin Glargine [Lantus Vial] 20 unit SQ DAILY 10/20/21 10/22/21 History Naltrexone HCl [Revia] 50 mg PO DAILY 10/20/21 10/22/21 History Nicotine 14Mg/24Hr Patch [Habitrol] 1 patch TRANSDERM DAILY PRN 10/20/21 10/22/21 History Ondansetron [Zofran ODT] 4 mg PO Q8HR #20 tab 10/20/21 10/22/21 Rx Pantoprazole Sodium [Protonix] 20 mg PO DAILY 10/20/21 10/22/21 History traZODone HCL 50 mg PO HS PRN 10/20/21 10/22/21 History Allergies Allergy/AdvReac Type Severity Reaction Status Date / Time No Known Allergies Allergy Verified 10/22/21 16:55 Physical Exam Vitals: Vital Signs Temp Pulse Pulse Resp BP BP Pulse Ox 10/23/21 00:00 104 H 18 133/86 97 10/22/21 20:00 97.9 F 95 16 126/86 98 10/22/21 19:45 98.2 F 92 16 120/87 97 10/22/21 17:12 96 18 129/89 96 10/22/21 15:33 98.4 F 95 18 127/75 97 Intake and Output 10/22/21 10/23/21 10/23/21 22:59 06:59 14:59 Intake Total 303.551 9702.569 1.050 Balance 074.045 1464.569 1.050 Intake: Intake, IV Titration 19.901 1014.569 1.050 Amount Insulin Regular 100 unit 19.901 14.569 1.050 In Sodium Chloride 0.9% 100 ml @ 0.1 UNITS/KG/HR 7.193 mls/hr IV .Q14H3M [facility] Rx#:[id number] Sodium Chloride 0.9% 1, 1000 000 ml @ 200 mls/hr IV . Q5H [facility] Rx#:[id number] Oral 485 Blood Product 485 Other: Voiding Method Toilet Toilet # Voids 2 Weight 71.214 kg Results CBC & Chem 7: 10/22/21 16:22 10/23/21 11:09 Labs: Abnormal Lab Results - Last 24 Hours (Table) 10/22/21 10/22/21 10/22/21 Range/Units 16:02 16:22 16:22 Sodium 136 L (137-145) mmol/L Chloride 97 L (98-107) mmol/L Carbon Dioxide 13 L (22-30) mmol/L Glucose 230 H (74-99) mg/dL POC Glucose (mg/dL) 211 H (75-99) mg/dL Plasma Lactic Acid Bruno (0.7-2.0) mmol/L Phosphorus (2.5-4.5) mg/dL Total Bilirubin 1.9 H (0.2-1.3) mg/dL ALT 50 H (4-49) U/L Alkaline Phosphatase 179 H (38-126) U/L Albumin 5.2 H (3.5-5.0) g/dL Urine Protein 2+ H (Negative) Urine Glucose (UA) 4+ H (Negative) Urine Ketones 4+ H (Negative) Urine Blood Trace H (Negative) Urine Mucus Rare H (None) /[facility] 10/22/21 10/22/21 10/22/21 Range/Units 16:22 18:32 19:44 Sodium (137-145) mmol/L Chloride (98-107) mmol/L Carbon Dioxide 12 L (22-30) mmol/L Glucose 172 H (74-99) mg/dL POC Glucose (mg/dL) 205 H (75-99) mg/dL Plasma Lactic Acid Bruno 3.2 H* (0.7-2.0) mmol/L Phosphorus (2.5-4.5) mg/dL Total Bilirubin (0.2-1.3) mg/dL ALT (4-49) U/L Alkaline Phosphatase (38-126) U/L Albumin (3.5-5.0) g/dL Urine Protein (Negative) Urine Glucose (UA) (Negative) Urine Ketones (Negative) Urine Blood (Negative) Urine Mucus (None) /[facility] 10/22/21 10/22/21 10/22/21 Range/Units 19:44 21:51 22:21 Sodium (137-145) mmol/L Chloride (98-107) mmol/L Carbon Dioxide (22-30) mmol/L Glucose (74-99) mg/dL POC Glucose (mg/dL) 105 H 147 H (75-99) mg/dL Plasma Lactic Acid Bruno 3.4 H* (0.7-2.0) mmol/L Phosphorus (2.5-4.5) mg/dL Total Bilirubin (0.2-1.3) mg/dL ALT (4-49) U/L Alkaline Phosphatase (38-126) U/L Albumin (3.5-5.0) g/dL Urine Protein (Negative) Urine Glucose (UA) (Negative) Urine Ketones (Negative) Urine Blood (Negative) Urine Mucus (None) /[facility] 10/22/21 10/22/21 10/23/21 Range/Units 23:10 23:51 00:01 Sodium 133 L (137-145) mmol/L Chloride (98-107) mmol/L Carbon Dioxide 20 L (22-30) mmol/L Glucose 165 H (74-99) mg/dL POC Glucose (mg/dL) 171 H 163 H (75-99) mg/dL Plasma Lactic Acid Bruno (0.7-2.0) mmol/L Phosphorus 2.1 L (2.5-4.5) mg/dL Total Bilirubin (0.2-1.3) mg/dL ALT (4-49) U/L Alkaline Phosphatase (38-126) U/L Albumin (3.5-5.0) g/dL Urine Protein (Negative) Urine Glucose (UA) (Negative) Urine Ketones (Negative) Urine Blood (Negative) Urine Mucus (None) /[facility] 10/23/21 10/23/21 10/23/21 Range/Units 01:03 02:01 03:17 Sodium (137-145) mmol/L Chloride (98-107) mmol/L Carbon Dioxide (22-30) mmol/L Glucose (74-99) mg/dL POC Glucose (mg/dL) 150 H 124 H 140 H (75-99) mg/dL Plasma Lactic Acid Bruno (0.7-2.0) mmol/L Phosphorus (2.5-4.5) mg/dL Total Bilirubin (0.2-1.3) mg/dL ALT (4-49) U/L Alkaline Phosphatase (38-126) U/L Albumin (3.5-5.0) g/dL Urine Protein (Negative) Urine Glucose (UA) (Negative) Urine Ketones (Negative) Urine Blood (Negative) Urine Mucus (None) /[facility] 10/23/21 10/23/21 10/23/21 Range/Units 03:58 05:16 05:34 Sodium 134 L (137-145) mmol/L Chloride (98-107) mmol/L Carbon Dioxide (22-30) mmol/L Glucose 186 H (74-99) mg/dL POC Glucose (mg/dL) 146 H 178 H (75-99) mg/dL Plasma Lactic Acid Bruno (0.7-2.0) mmol/L Phosphorus (2.5-4.5) mg/dL Total Bilirubin (0.2-1.3) mg/dL ALT (4-49) U/L Alkaline Phosphatase (38-126) U/L Albumin (3.5-5.0) g/dL Urine Protein (Negative) Urine Glucose (UA) (Negative) Urine Ketones (Negative) Urine Blood (Negative) Urine Mucus (None) /hpf 10/23/21 10/23/21 Range/Units 07:02 08:02 Sodium (137-145) mmol/L Chloride (98-107) mmol/L Carbon Dioxide (22-30) mmol/L Glucose (74-99) mg/dL POC Glucose (mg/dL) 214 H 237 H (75-99) mg/dL Plasma Lactic Acid Bruno (0.7-2.0) mmol/L Phosphorus (2.5-4.5) mg/dL Total Bilirubin (0.2-1.3) mg/dL ALT (4-49) U/L Alkaline Phosphatase (38-126) U/L Albumin (3.5-5.0) g/dL Urine Protein (Negative) Urine Glucose (UA) (Negative) Urine Ketones (Negative) Urine Blood (Negative) Urine Mucus (None) /hpf Assessment and Plan Time with Patient: Greater than 30
[2021-10-23 11:53] LABS: Glucose,Whole Blood 308 mg/dL (75-99)
[2021-10-23] MEDS: INSULIN DETEMIR (LEVEMIR) 100 UNIT/ML SYR SQ SCH (11:54)
[2021-10-23] MEDS: ONDANSETRON 4 MG/2 ML VIAL IVP PRN (11:54)
[2021-10-23] MEDS: INSULIN ASPART (NovoLOG) 100 UNIT/ML VIAL SQ SCH ×5 (11:55→20:19)
[2021-10-23 12:24] VITALS: BMI 22.5
[2021-10-23 16:30] LABS: Glucose,Whole Blood 234 mg/dL (75-99)
[2021-10-23 20:13] LABS: Glucose,Whole Blood 115 mg/dL (75-99)
[2021-10-24 06:28] LABS: Glucose,Whole Blood 210 mg/dL (75-99)
[2021-10-24] MEDS: INSULIN ASPART (NovoLOG) 100 UNIT/ML VIAL SQ SCH ×7 (06:29→20:44)
[2021-10-24] MEDS: INSULIN DETEMIR (LEVEMIR) 100 UNIT/ML SYR SQ SCH (06:29)
[2021-10-24] MEDS: THIAMINE 100 MG TAB PO SCH ×2 (06:30→17:28)
[2021-10-24] MEDS: LORazepam 2 MG/ML INJ IV PRN ×7 (06:34→22:26)
[2021-10-24 09:32] LABS: Basophils % (A) 1 %; Eosinophils # (A) 0.2 k/uL (0-0.7); Eosinophils % (A) 6 %; HCT 41.5 % (39.0-53.0); HGB 13.9 gm/dL (13.0-17.5); Lymphocytes # (A) 0.8 k/uL (1.0-4.8); Lymphocytes % (A) 24 %; MCH 32.6 pg (25.0-35.0); MCHC 33.5 g/dL (31.0-37.0); MCV 97.3 fL (80.0-100.0); Mean Platelet Volume 8.1; Monocytes # (A) 0.1 k/uL (0-1.0); Monocytes % (A) 5 %; Neutrophils % (A) 63 %; Platelet Count 142 k/uL (150-450); RBC 4.27 m/uL (4.30-5.90); RDW 12.9 % (11.5-15.5); WBC 3.1 k/uL (3.8-10.6)
[2021-10-24 09:33] LABS: African American GFR (CKD) >90 (>60 ml/min/1.73 sqM); Anion Gap 5 mmol/L; Blood Urea Nitrogen 11 mg/dL (9-20); Calcium 8.8 mg/dL (8.4-10.2); Carbon Dioxide 26 mmol/L (22-30); Chloride 101 mmol/L (98-107); Glucose 347 mg/dL (74-99); Non-African American GFR(CKD) >90 (>60 ml/min/1.73 sqM); Potassium 4.1 mmol/L (3.5-5.1); Sodium 132 mmol/L (137-145)
[2021-10-24] MEDS: SODIUM CHLORIDE 0.9% 1,000 ML IV SCH ×2 (09:53→10:07)
[2021-10-24] MEDS: PANTOPRAZOLE 40 MG/10 ML VIAL IVP SCH ×2 (10:07→20:43)
[2021-10-24] MEDS: MULTIVITAMINS, THERA 1 EACH TAB PO SCH (10:08)
[2021-10-24] MEDS: FOLIC ACID 1 MG TAB PO SCH (10:08)
[2021-10-24] MEDS ORDERED: INSULIN DETEMIR (LEVEMIR) 100 UNIT/ML SYR SQ SCH (11:08)
[2021-10-24 11:20] LABS: Glucose,Whole Blood 363 mg/dL (75-99)
[2021-10-24 14:35] LABS: Glucose,Whole Blood 116 mg/dL (75-99)
[2021-10-24] MEDS: MAG HYDROX/AL HYDROX/SIMETH 30 ML CUP PO SCH ×3 (14:45→20:43)
--- NOTE | 2021-10-24 15:26 | P.PN ---
Subjective Progress Note Date: 10/24/21 This is a 41-year-old male who presents to the emergency room with complaints of abdominal pain associated nausea vomiting. Patient has reported blood in the vomit. However vomiting has resolved and patient came to the hospital. States that he vomits only when he drinks alcohol which is daily when he binges. Patient has a medical history significant for GERD, chronic pancreatitis, diabetes mellitus questionable whether type I or type II has been a diabetic for around 3 and a half years, most probably type I with recurrent episodes of DKA. Uses lantus and humalog at home, states he has not taken his insulin for 1.5 days as he has been drinking. 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 Patient also is a chronic heavy daily alcohol user admits to drinking 1/5 per day, Occasional tobacco use. Follows with Dr Cholo Galvan in the primary care office, has an appointment with Dr Rivas for endo at the end of this month. Reports having a scope done in the past, seems to be referring more to a POLO than EGD, patient is unsure what it was for states about 1.5 years ago he had it done. Patient recently admitted to the hospital 4 days ago for vomiting and also in August of this year for DKA. Labs on admission show unremarkable blood count panel, INR 0.9, sodium 136, potassium 5.0, chloride 97, CO2 13, BUN 12, creatinine 0.80, blood glucose in the 200s, lactic acid 3.2, bili 1.9, ALT 50, alk phos 179, albumin 5.2, urinalysis shows positive protein glucose ketones and he is acetone positive. Patient admitted to the hospital with diabetic ketoacidosis was started on insulin drip received a 1 L fluid bolus. DKA has since resolved with anion gap 9 and CO2 24 patient can transition off the insulin gtt to levemir 23 units and novolog. 10/24/2021 Patient evaluated today resting in bed. States that he has just been sleeping for the last 2 days. Per nurse patient is having episodes of diaphoresis however, no tremors noted. Patient continues with nausea no vomiting no diarrhea stools are looser no reports of blood. He tolerated diet okay. Still complains of a "burning ball" in his stomach. He has received 2 doses of IV ativan today. Patient verbalizes understanding of need for alcohol cessation, and states he does want to quit alcohol. Receiving protonix BID IV, maalox, morphine for pain management. Labs today show stable hemoglobin 13.9, sodium 1 32, potassium 4.1, blood glucose spike to the 300s is back down to 116. He is afebrile, heart rate 83, blood pressure 106/69, 99% room air. REVIEW OF SYSTEMS: CONSTITUTIONAL: No fever, no malaise, no fatigue. HEENT: No recent visual problems or hearing problems. Denied any sore throat. CARDIOVASCULAR: No chest pain, orthopnea, PND, no palpitations, no syncope. PULMONARY: No shortness of breath, no cough, no hemoptysis. GASTROINTESTINAL: No diarrhea, no nausea, reports mild epigastric abdominal pain, tenderness, and vomiting x 5 episodes at home with blood. None currently. having loose BMS, reports no blood NEUROLOGICAL: No headaches, no weakness, no numbness. MUSCULOSKELETAL/RHEUMATOLOGICAL: Denies any joint pain, swelling, or any muscle pain. All inpatient medications reviewed and appropriate. PHYSICAL EXAMINATION: GENERAL: The patient is alert and oriented x3, not in any acute distress. Well developed, well nourished. HEENT: Pupils are round and equally reacting to light. EOMI. No scleral icterus. No conjunctival pallor. Normocephalic, atraumatic. No pharyngeal erythema. No thyromegaly. CARDIOVASCULAR: S1 and S2 present. No murmurs, rubs, or gallops. PULMONARY: Chest is clear to auscultation, no wheezing or crackles. ABDOMEN: Soft, mild tender epigastric region, nondistended, normoactive bowel sounds. No palpable organomegaly. MUSCULOSKELETAL: No joint swelling or deformity. EXTREMITIES: No cyanosis, clubbing, or pedal edema. NEUROLOGICAL: Gross neurological examination did not reveal any focal deficits. SKIN: No rashes. Assessment and plan Assessment Diabetic Ketoacidosis started on insulin gtt in the EC, anion gap has since closed, transitioned to subcu insulin, however sugars are uncontrolled with highs and lows. Nausea/vomiting secondary to gastritis from chronic alcohol abuse, no further episodes of vomiting Anion gap metabolic acidosis secondary to diabetic ketoacidosis, resolved currently Acute alcohol withdrawal, stable Acute alcoholic hepatitis Alcoholic gastritis with history of GERD on IV protonix Hyponatremia, hypovolemic, encourage oral intake, repeat tomorrow Diabetes Mellitus, uncontrolled, most recent A1C documented in Jun was 12.0 Chronic daily alcohol abuse History of delirium tremens Chronic nicotine use History of peripheral neuropathy Anxiety GI Prophylaxis DVT Prophylaxis Plan Monitor blood glucose Encourage oral intake Continue IV protonix, maalox Repeat labs in AM Most likely discharge tomorrow Objective - Vital Signs Vital signs: Vital Signs Temp 98.0 F 10/24/21 10:19 Pulse 83 10/24/21 11:20 Resp 16 10/24/21 11:20 BP 106/69 10/24/21 11:20 Pulse Ox 99 10/24/21 11:20 Intake & Output 10/23/21 10/24/21 10/24/21 18:59 06:59 18:59 Intake Total 1990.036 485 880 Balance 1990.036 485 880 Weight 71.214 kg Intake: IV 810 20 D5-0.45% NaCl with KCl 600 20Meq/l 1,000 ml @ 150 mls/hr IV .Q6H40M [facility] Rx# :[id number] Invasive Line 1 10 20 Sodium Chloride 0.9% 1, 200 000 ml @ 100 mls/hr IV . Q10H [facility] Rx#:[id number] Intake, IV Titration 3.036 Amount Insulin Regular 100 unit 3.036 In Sodium Chloride 0.9% 100 ml @ 0.1 UNITS/KG/HR 7.193 mls/hr IV .Q14H3M [facility] Rx#:[id number] Oral 1178 485 860 Other: Voiding Method Toilet Toilet # Voids 2 2 # Bowel Movements 0 - Labs CBC & Chem 7: 10/24/21 08:42 10/24/21 08:42 Labs: Abnormal Lab Results - Last 24 Hours (Table) 10/23/21 10/23/21 10/24/21 Range/Units 16:29 19:55 06:25 WBC (3.8-10.6) k/uL RBC (4.30-5.90) m/uL Plt Count (150-450) k/uL Lymphocytes # (1.0-4.8) k/uL Sodium (137-145) mmol/L Glucose (74-99) mg/dL POC Glucose (mg/dL) 234 H 115 H 210 H (75-99) mg/dL 0310/24/21 10/24/21 Range/Units 08:42 08:42 11:18 WBC 3.1 L (3.8-10.6) k/uL RBC 4.27 L (4.30-5.90) m/uL Plt Count 142 L (150-450) k/uL Lymphocytes # 0.8 L (1.0-4.8) k/uL Sodium 132 L (137-145) mmol/L Glucose 347 H (74-99) mg/dL POC Glucose (mg/dL) 363 H (75-99) mg/dL 10/24/21 Range/Units 14:33 WBC (3.8-10.6) k/uL RBC (4.30-5.90) m/uL Plt Count (150-450) k/uL Lymphocytes # (1.0-4.8) k/uL Sodium (137-145) mmol/L Glucose (74-99) mg/dL POC Glucose (mg/dL) 116 H (75-99) mg/dL
[2021-10-24 16:17] LABS: Glucose,Whole Blood 140 mg/dL (75-99)
[2021-10-24 20:20] LABS: Glucose,Whole Blood 314 mg/dL (75-99)
[2021-10-24] MEDS: MORPHINE SULFATE 2 MG/ML SYRINGE IVP PRN (20:43)
[2021-10-25] MEDS: MORPHINE SULFATE 2 MG/ML SYRINGE IVP PRN ×6 (00:40→23:38)
[2021-10-25] MEDS: LORazepam 2 MG/ML INJ IV PRN ×5 (00:40→20:42)
[2021-10-25 05:41] LABS: Glucose,Whole Blood 312 mg/dL (75-99)
[2021-10-25] MEDS: INSULIN ASPART (NovoLOG) 100 UNIT/ML VIAL SQ SCH ×7 (06:37→20:36)
[2021-10-25] MEDS: THIAMINE 100 MG TAB PO SCH ×2 (06:37→18:12)
[2021-10-25] MEDS: INSULIN DETEMIR (LEVEMIR) 100 UNIT/ML SYR SQ SCH (06:37)
[2021-10-25 09:32] LABS: African American GFR (CKD) >90 (>60 ml/min/1.73 sqM); Anion Gap 8 mmol/L; Blood Urea Nitrogen 8 mg/dL (9-20); Calcium 9.1 mg/dL (8.4-10.2); Carbon Dioxide 26 mmol/L (22-30); Chloride 102 mmol/L (98-107); Glucose 268 mg/dL (74-99); Non-African American GFR(CKD) >90 (>60 ml/min/1.73 sqM); Sodium 136 mmol/L (137-145)
[2021-10-25] MEDS: MAG HYDROX/AL HYDROX/SIMETH 30 ML CUP PO SCH ×4 (09:46→20:36)
[2021-10-25] MEDS: PANTOPRAZOLE 40 MG/10 ML VIAL IVP SCH ×2 (09:46→20:35)
[2021-10-25] MEDS: MULTIVITAMINS, THERA 1 EACH TAB PO SCH (09:46)
[2021-10-25] MEDS: FOLIC ACID 1 MG TAB PO SCH (09:46)
[2021-10-25] MEDS: chlordiazePOXIDE 25 MG CAP PO SCH ×3 (09:53→22:08)
[2021-10-25 11:35] LABS: Glucose,Whole Blood 164 mg/dL (75-99)
[2021-10-25] MEDS ORDERED: LORazepam 2 MG/ML INJ IV PRN ×2 (14:08)
[2021-10-25] MEDS ORDERED: IOPAMIDOL CONTRAST (ORAL USE) VIAL PO PRN (14:09)
--- NOTE | 2021-10-25 15:53 | P.PN ---
Subjective Progress Note Date: 10/25/21 This is a 41-year-old male who presents to the emergency room with complaints of abdominal pain associated nausea vomiting. Patient has reported blood in the vomit. However vomiting has resolved and patient came to the hospital. States that he vomits only when he drinks alcohol which is daily when he binges. Patient has a medical history significant for GERD, chronic pancreatitis, diabetes mellitus questionable whether type I or type II has been a diabetic for around 3 and a half years, most probably type I with recurrent episodes of DKA. Uses lantus and humalog at home, states he has not taken his insulin for 1.5 days as he has been drinking. 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 Patient also is a chronic heavy daily alcohol user admits to drinking 1/5 per day, Occasional tobacco use. Follows with Dr Cholo Galvan in the primary care office, has an appointment with Dr Rivas for endo at the end of this month. Reports having a scope done in the past, seems to be referring more to a POLO than EGD, patient is unsure what it was for states about 1.5 years ago he had it done. Patient recently admitted to the hospital 4 days ago for vomiting and also in August of this year for DKA. Labs on admission show unremarkable blood count panel, INR 0.9, sodium 136, potassium 5.0, chloride 97, CO2 13, BUN 12, creatinine 0.80, blood glucose in the 200s, lactic acid 3.2, bili 1.9, ALT 50, alk phos 179, albumin 5.2, urinalysis shows positive protein glucose ketones and he is acetone positive. Patient admitted to the hospital with diabetic ketoacidosis was started on insulin drip received a 1 L fluid bolus. DKA has since resolved with anion gap 9 and CO2 24 patient can transition off the insulin gtt to levemir 23 units and novolog. 10/24/2021 Patient evaluated today resting in bed. States that he has just been sleeping for the last 2 days. Per nurse patient is having episodes of diaphoresis however, no tremors noted. Patient continues with nausea no vomiting no diarrhea stools are looser no reports of blood. He tolerated diet okay. Still complains of a "burning ball" in his stomach. He has received 2 doses of IV ativan today. Patient verbalizes understanding of need for alcohol cessation, and states he does want to quit alcohol. Receiving protonix BID IV, maalox, morphine for pain management. Labs today show stable hemoglobin 13.9, sodium 1 32, potassium 4.1, blood glucose spike to the 300s is back down to 116. He is afebrile, heart rate 83, blood pressure 106/69, 99% room air. 10/25/2021 Patient resting in bed today he is more awake and states over all he is feeling much better. Had not had any episodes of emesis this admission so far. Did get 1 mg of ativan this morning, began librium taper today. Patient states abdominal pain is improving, although still with complaints of epigastric burning and states the pain feels better when you press on the stomach. He has been on IV protonix BID as well as maalox. Patient was feeling stable for discharge and recommended to follow up with GI in the office for EGD as he has a history of chronic alcohol abuse with alcoholic gastritis. After lunch today patient vomited some undigested food and per nurse was a brown murky color similar to stool but unable to determine. Patient has been drinking cola at the bedside. At this time as well patients heart rate elevated into the 140s on telemetry. Discharge held and patient will be monitored over night can resume CIWA if needed and consult gen bairon. Also Abominal Pelvis CT ordered. REVIEW OF SYSTEMS: CONSTITUTIONAL: No fever, no malaise, no fatigue. HEENT: No recent visual problems or hearing problems. Denied any sore throat. CARDIOVASCULAR: No chest pain, orthopnea, PND, no palpitations, no syncope. PULMONARY: No shortness of breath, no cough, no hemoptysis. GASTROINTESTINAL: No diarrhea, no nausea, reports epigastric burning, tenderness, one episode of emesis this afternoon as described above NEUROLOGICAL: No headaches, no weakness, no numbness. MUSCULOSKELETAL/RHEUMATOLOGICAL: Denies any joint pain, swelling, or any muscle pain. All inpatient medications reviewed and appropriate. PHYSICAL EXAMINATION: GENERAL: The patient is alert and oriented x3, not in any acute distress. Well developed, well nourished. HEENT: Pupils are round and equally reacting to light. EOMI. No scleral icterus. No conjunctival pallor. Normocephalic, atraumatic. No pharyngeal erythema. No thyromegaly. CARDIOVASCULAR: S1 and S2 present. No murmurs, rubs, or gallops. PULMONARY: Chest is clear to auscultation, no wheezing or crackles. ABDOMEN: Soft, mild tender epigastric region, nondistended, normoactive bowel sounds. No palpable organomegaly. MUSCULOSKELETAL: No joint swelling or deformity. EXTREMITIES: No cyanosis, clubbing, or pedal edema. NEUROLOGICAL: Gross neurological examination did not reveal any focal deficits. SKIN: No rashes. Assessment and plan Assessment Diabetic Ketoacidosis started on insulin gtt in the EC, anion gap has since closed, transitioned to subcu insulin, however sugars are uncontrolled with highs and lows. Nausea/vomiting secondary to gastritis from chronic alcohol abuse, emesis x 1 today Anion gap metabolic acidosis secondary to diabetic ketoacidosis, resolved currently Acute alcohol withdrawal, stable Acute alcoholic hepatitis Alcoholic gastritis with history of GERD on IV protonix, burning pain has mildly improved with maalox Hyponatremia, hypovolemic, improved Diabetes Mellitus, uncontrolled, most recent A1C documented in Jun was 12.0 Chronic daily alcohol abuse History of delirium tremens Chronic nicotine use History of peripheral neuropathy Anxiety GI Prophylaxis DVT Prophylaxis Plan Abd/Pelvis CT Consult surgery Monitor blood glucose Continue IV protonix, maalox Clear liquid diet CIWA Objective - Vital Signs Vital signs: Vital Signs Temp 97.8 F 10/24/21 20:00 Pulse 80 10/25/21 04:00 Resp 18 10/25/21 04:00 BP 127/70 10/25/21 04:00 Pulse Ox 100 10/25/21 04:00 Intake & Output 10/24/21 10/25/21 10/25/21 18:59 06:59 18:59 Intake Total 1000 970 120 Balance 1000 970 120 Intake: IV 20 Invasive Line 1 20 Oral 980 970 120 Other: Voiding Method Toilet Toilet # Voids 2 - Labs CBC & Chem 7: 10/24/21 08:42 10/25/21 08:36 Labs: Abnormal Lab Results - Last 24 Hours (Table) 10/24/21 10/24/21 10/24/21 Range/Units 14:33 16:15 20:14 Sodium (137-145) mmol/L BUN (9-20) mg/dL Glucose (74-99) mg/dL POC Glucose (mg/dL) 116 H 140 H 314 H (75-99) mg/dL 10/25/21 10/25/21 10/25/21 Range/Units 05:28 08:36 11:33 Sodium 136 L (137-145) mmol/L BUN 8 L (9-20) mg/dL Glucose 268 H (74-99) mg/dL POC Glucose (mg/dL) 312 H 164 H (75-99) mg/dL Assessment and Plan Time with Patient: Less than 30
[2021-10-25 16:33] LABS: Glucose,Whole Blood 125 mg/dL (75-99)
--- NOTE | 2021-10-25 17:23 | CT ---
EXAMINATION TYPE: CT abdomen pelvis wo con DATE OF EXAM: 10/25/2021 COMPARISON: 06/14/2021 HISTORY: vomiting, pain CT DLP: 493.9 mGycm Automated exposure control for dose reduction was used. Images obtained from the diaphragm to the floor the pelvis without contrast. Lung bases are clear. There is no pleural effusion. Heart size is normal. There is no pericardial eff usion. Liver spleen stomach appear intact. There are multiple variable-sized pancreatic calcifications. Ther e is a 5 cm cystic mass in the body of the pancreas. Gallbladder appears normal. The bile ducts are n ondilated. There is no adrenal mass. Kidneys have normal size and contour. There is no hydronephrosis. Ureters a re not dilated. Bladder distends smoothly. There is no inguinal hernia. There is minimal prostate monroe cification. There is no mesenteric edema. There is no ascites or free air. There is no bowel obstruction. The lumbar vertebrae have normal spacing and alignment. Posterior elements are intact. There is no co mpression fracture. Bony pelvis is intact. The hip joints are intact. Appendix not seen. No sign of t hickened appendix. IMPRESSION: Pancreatic calcifications consistent with chronic pancreatitis. Large pancreatic cyst consistent with pseudocyst. Pancreas not changed compared to old exam. No acute abnormality in the abdomen and pelvi s.
[2021-10-25 19:35] LABS: Glucose,Whole Blood 125 mg/dL (75-99)
[2021-10-26 05:27] LABS: Glucose,Whole Blood 204 mg/dL (75-99)
[2021-10-26 08:36] LABS: HCT 44.1 % (39.0-53.0); HGB 14.7 gm/dL (13.0-17.5); MCH 32.3 pg (25.0-35.0); MCHC 33.3 g/dL (31.0-37.0); MCV 97.2 fL (80.0-100.0); Mean Platelet Volume 8.7; Platelet Count 162 k/uL (150-450); RBC 4.54 m/uL (4.30-5.90); RDW 12.7 % (11.5-15.5); WBC 4.2 k/uL (3.8-10.6)
[2021-10-26 08:48] LABS: ALT 145 U/L (4-49); AST 156 U/L (17-59); African American GFR (CKD) >90 (>60 ml/min/1.73 sqM); Albumin 3.9 g/dL (3.5-5.0); Alkaline Phosphatase 102 U/L (38-126); Amylase <30 U/L (30-110); Anion Gap 7 mmol/L; Blood Urea Nitrogen 12 mg/dL (9-20); Calcium 9.1 mg/dL (8.4-10.2); Carbon Dioxide 27 mmol/L (22-30); Chloride 98 mmol/L (98-107); Glucose 273 mg/dL (74-99); Lipase 13 U/L (23-300); Magnesium 1.7 mg/dL (1.6-2.3); Non-African American GFR(CKD) >90 (>60 ml/min/1.73 sqM); Potassium 4.4 mmol/L (3.5-5.1); Sodium 132 mmol/L (137-145); Total Bilirubin 2.2 mg/dL (0.2-1.3); Total Protein 6.2 g/dL (6.3-8.2)
[2021-10-26] MEDS: chlordiazePOXIDE 25 MG CAP PO SCH ×3 (09:53→22:30)
[2021-10-26] MEDS: INSULIN DETEMIR (LEVEMIR) 100 UNIT/ML SYR SQ SCH (09:53)
[2021-10-26] MEDS: FOLIC ACID 1 MG TAB PO SCH (09:53)
[2021-10-26] MEDS: MAG HYDROX/AL HYDROX/SIMETH 30 ML CUP PO SCH ×5 (09:53→22:31)
[2021-10-26] MEDS: MULTIVITAMINS, THERA 1 EACH TAB PO SCH (09:53)
[2021-10-26] MEDS: THIAMINE 100 MG TAB PO SCH ×2 (09:54→18:26)
[2021-10-26] MEDS: MORPHINE SULFATE 2 MG/ML SYRINGE IVP PRN ×4 (09:54→22:29)
[2021-10-26] MEDS: PANTOPRAZOLE 40 MG/10 ML VIAL IVP SCH ×2 (09:56→20:27)
[2021-10-26] MEDS: MAGNESIUM SULFATE-D5W PMX 1 GM in DEXTROSE/WATER 1 100ML.BAG IVPB SCH ×2 (09:57→12:10)
[2021-10-26] MEDS: SODIUM CHLORIDE 0.9% 1,000 ML IV SCH (09:58)
[2021-10-26] MEDS: INSULIN ASPART (NovoLOG) 100 UNIT/ML VIAL SQ SCH ×7 (09:58→20:19)
[2021-10-26 11:44] LABS: Glucose,Whole Blood 320 mg/dL (75-99)
[2021-10-26] MEDS: LORazepam 2 MG/ML INJ IV PRN ×2 (12:29→20:27)
--- NOTE | 2021-10-26 14:23 | P.PN ---
Subjective Progress Note Date: 10/26/21 This is a 41-year-old male who presents to the emergency room with complaints of abdominal pain associated nausea vomiting. Patient has reported blood in the vomit. However vomiting has resolved and patient came to the hospital. States that he vomits only when he drinks alcohol which is daily when he binges. Patient has a medical history significant for GERD, chronic pancreatitis, diabetes mellitus questionable whether type I or type II has been a diabetic for around 3 and a half years, most probably type I with recurrent episodes of DKA. Uses lantus and humalog at home, states he has not taken his insulin for 1.5 days as he has been drinking. 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 Patient also is a chronic heavy daily alcohol user admits to drinking 1/5 per day, Occasional tobacco use. Follows with Dr Cholo Galvan in the primary care office, has an appointment with Dr Rivas for endo at the end of this month. Reports having a scope done in the past, seems to be referring more to a POLO than EGD, patient is unsure what it was for states about 1.5 years ago he had it done. Patient recently admitted to the hospital 4 days ago for vomiting and also in August of this year for DKA. Labs on admission show unremarkable blood count panel, INR 0.9, sodium 136, potassium 5.0, chloride 97, CO2 13, BUN 12, creatinine 0.80, blood glucose in the 200s, lactic acid 3.2, bili 1.9, ALT 50, alk phos 179, albumin 5.2, urinalysis shows positive protein glucose ketones and he is acetone positive. Patient admitted to the hospital with diabetic ketoacidosis was started on insulin drip received a 1 L fluid bolus. DKA has since resolved with anion gap 9 and CO2 24 patient can transition off the insulin gtt to levemir 23 units and novolog. 10/24/2021 Patient evaluated today resting in bed. States that he has just been sleeping for the last 2 days. Per nurse patient is having episodes of diaphoresis however, no tremors noted. Patient continues with nausea no vomiting no diarrhea stools are looser no reports of blood. He tolerated diet okay. Still complains of a "burning ball" in his stomach. He has received 2 doses of IV ativan today. Patient verbalizes understanding of need for alcohol cessation, and states he does want to quit alcohol. Receiving protonix BID IV, maalox, morphine for pain management. Labs today show stable hemoglobin 13.9, sodium 1 32, potassium 4.1, blood glucose spike to the 300s is back down to 116. He is afebrile, heart rate 83, blood pressure 106/69, 99% room air. 10/25/2021 Patient resting in bed today he is more awake and states over all he is feeling much better. Had not had any episodes of emesis this admission so far. Did get 1 mg of ativan this morning, began librium taper today. Patient states abdominal pain is improving, although still with complaints of epigastric burning and states the pain feels better when you press on the stomach. He has been on IV protonix BID as well as maalox. Patient was feeling stable for discharge and recommended to follow up with GI in the office for EGD as he has a history of chronic alcohol abuse with alcoholic gastritis. After lunch today patient vomited some undigested food and per nurse was a brown murky color similar to stool but unable to determine. Patient has been drinking cola at the bedside. At this time as well patients heart rate elevated into the 140s on telemetry. Discharge held and patient will be monitored over night can resume CIWA if needed and consult gen bairon. Also Abominal Pelvis CT ordered. 10/26/2021 Patient evaluated today resting in bed. Concerns for acute alcohol withdrawal throughout the evening he was restarted back on CIWA while pending surgical evaluation today. Abdominal pelvis CT shows pancreatic calcifications consistent with chronic pancreatitis with a large pancreatic cyst consistent with pseudocyst, the pancreas is unchanged compared to old exam with no acute abnormality in the abdomen or pelvis. Patient is supposed to be on pancreatic enzymes however he cannot afford them. Continues with the epigastric burning s ensation that is resolved with pressing on the epigastric region. No further episodes of vomiting. Blood sugar elevated in the 300s today. Patient scheduled to undergo EGD tomorrow. Afebrile, heart rate 83, blood pressure 120/76, 98% room air. REVIEW OF SYSTEMS: CONSTITUTIONAL: No fever, no malaise, no fatigue. HEENT: No recent visual problems or hearing problems. Denied any sore throat. CARDIOVASCULAR: No chest pain, orthopnea, PND, no palpitations, no syncope. PULMONARY: No shortness of breath, no cough, no hemoptysis. GASTROINTESTINAL: No diarrhea, no nausea, reports epigastric burning, tenderness. NEUROLOGICAL: No headaches, no weakness, no numbness. MUSCULOSKELETAL/RHEUMATOLOGICAL: Denies any joint pain, swelling, or any muscle pain. All inpatient medications reviewed and appropriate. PHYSICAL EXAMINATION: GENERAL: The patient is alert and oriented x3, not in any acute distress. Well developed, well nourished. HEENT: Pupils are round and equally reacting to light. EOMI. No scleral icterus. No conjunctival pallor. Normocephalic, atraumatic. No pharyngeal erythema. No thyromegaly. CARDIOVASCULAR: S1 and S2 present. No murmurs, rubs, or gallops. PULMONARY: Chest is clear to auscultation, no wheezing or crackles. ABDOMEN: Soft, mild tender epigastric region, nondistended, normoactive bowel sounds. No palpable organomegaly. MUSCULOSKELETAL: No joint swelling or deformity. EXTREMITIES: No cyanosis, clubbing, or pedal edema. NEUROLOGICAL: Gross neurological examination did not reveal any focal deficits. SKIN: No rashes. Assessment and plan Assessment Diabetic Ketoacidosis started on insulin gtt in the EC, anion gap has since closed, transitioned to subcu insulin, however sugars are uncontrolled with highs and lows. Nausea/vomiting secondary to gastritis from chronic alcohol abuse Anion gap metabolic acidosis secondary to diabetic ketoacidosis, resolved currently Acute alcohol withdrawal, on CIWA Acute alcoholic hepatitis Alcoholic gastritis with history of GERD on IV protonix, burning pain has mildly improved with maalox Hyponatremia, hypovolemic, on IV fluids Hypomagnesemia, replaced per protocol Diabetes Mellitus, uncontrolled, most recent A1C documented in Jun was 12.0 Chronic daily alcohol abuse History of delirium tremens Chronic nicotine use History of peripheral neuropathy Anxiety GI Prophylaxis DVT Prophylaxis Plan EGD tomorrow Monitor blood glucose Continue IV protonix, maalox Continue IV fluids Clear liquid diet [facility] Repeat labs in AM Patient does have follow up with Dr Rivas for endo in 2 weeks. Objective - Vital Signs Vital signs: Vital Signs Temp 97.5 F L 10/26/21 11:38 Pulse 83 10/26/21 11:38 Resp 16 10/26/21 11:38 BP 120/76 10/26/21 11:38 Pulse Ox 98 10/26/21 11:38 Intake & Output 10/25/21 10/26/21 10/26/21 18:59 06:59 18:59 Intake Total 740 240 630 Balance 740 240 630 Intake: IV 20 10 Invasive Line 2 20 10 Oral 720 240 620 Other: Voiding Method Toilet Toilet # Voids 1 1 - Labs CBC & Chem 7: 10/26/21 07:27 10/26/21 07:27 Labs: Abnormal Lab Results - Last 24 Hours (Table) 10/25/21 10/25/21 10/26/21 Range/Units 16:33 19:34 05:12 Sodium (137-145) mmol/L Glucose (74-99) mg/dL POC Glucose (mg/dL) 125 H 125 H 204 H (75-99) mg/dL Total Bilirubin (0.2-1.3) mg/dL AST (17-59) U/L ALT (4-49) U/L Total Protein (6.3-8.2) g/dL Amylase (30-110) U/L Lipase (23-300) U/L 10/26/21 10/26/21 Range/Units 07:27 11:43 Sodium 132 L (137-145) mmol/L Glucose 273 H (74-99) mg/dL POC Glucose (mg/dL) 320 H (75-99) mg/dL Total Bilirubin 2.2 H (0.2-1.3) mg/dL AST 156 H (17-59) U/L ALT 145 H (4-49) U/L Total Protein 6.2 L (6.3-8.2) g/dL Amylase <30 L (30-110) U/L Lipase 13 L (23-300) U/L Assessment and Plan Time with Patient: Less than 30
--- NOTE | 2021-10-26 14:26 | P.GSCN ---
<Gina Rojo - Last Filed: 10/26/21 14:20> History of Present Illness Consult date: 10/26/21 History of present illness: CHIEF COMPLAINT: Epigastric pain HISTORY OF PRESENT ILLNESS: This is a 41-year-old male who presented to the emergency room with complaints of epigastric abdominal pain with nausea and vomiting. He had evidence of DKA on admission. Surgical consults has been placed regarding his abdominal pain and emesis. Patient DKA had improved they're anticipating discharged yesterday however patient did have vomiting again. Patient reports he had some small specks of blood in his emesis yesterday. And at home he noted also some blood. Patient does have a prior history of gastritis and daily alcohol use as well as chronic pancreatitis and pancreatic pseudocyst. Patient describes the pain as a burning sensation now throbbing. Patient denies any bowel movement last couple days. Patient seen and examined with Dr. poole PAST MEDICAL HISTORY: Diabetes mellitus, GERD, DKA, ETOH abuse, past DT's/seizure when withdrawing from alcohol, chronic pancreatitis PAST SURGICAL HISTORY: None MEDICATIONS: See list. ALLERGIES: See list. SOCIAL HISTORY: No illicit drug use. REVIEW OF SYSTEMS: CONSTITUTIONAL: Denies fever or chills. HEENT: Denies blurred vision, vision changes, or eye pain. Denies hemoptysis CARDIOVASCULAR: Denies chest pain or pressure. RESPIRATORY: No shortness of breath. GASTROINTESTINAL: See HPI for pertinent findings HEMATOLOGIC: Denies bleeding disorders. GENITOURINARY: Denies any blood in urine or increased urinary frequency. SKIN: Denies pruitis. Denies rash. PHYSICAL EXAM: VITAL SIGNS: Reviewed GENERAL: Well-developed in no acute distress. HEENT: No sclera icterus. Extraocular movements grossly intact. Moist buccal m ucosa. Head is atraumatic, normocephalic. No nasal drainage. ABDOMEN: Soft. Nondistended. Epigastric tenderness NEUROLOGIC: Alert and oriented. Cranial nerves II through XII grossly intact. LABORATORY DATA: WBC 4.2 hemoglobin 14.7 platelets 162 Sodium 132 potassium 4.4 creatinine 0.78 Total bili 2.2 AST 156 and ALT 145 IMAGING: Computed tomography scan abdomen and pelvis pancreatic calcifications consistent with chronic pancreatitis. Large pancreatic cyst consistent with pseudocysts. He agrees not changed compared to old exam. No acute abnormality in the abdomen and pelvis. Gallbladder appears normal. ASSESSMENT: 1. Epigastric abdominal pain with nausea and vomiting 2. Alcohol abuse PLAN: -Patient scheduled for EGD tomorrow, 10/27/[address] Poole -Keep patient nothing by mouth after midnight -Continue Protonix -Continue supportive care -Discussed alcohol cessation Thank you for this consultation Physician Basket Weaver note has been reviewed by physician. Signing provider agrees with the documented findings, assessment, and plan of care. Past Medical History Past Medical History: Diabetes Mellitus, GERD/Reflux Additional Past Medical History / Comment(s): IDDM pt states he has been told he is type 1 and told he is type II, neuropathy occasionally in bilateral toes/fingers, DKAs, ETOH abuse, past DT's/seizure when withdrawing from alcohol, chronic pancreatitis History of Any Multi-Drug Resistant Organisms: None Reported Past Surgical History: No Surgical Hx Reported Additional Past Surgical History / Comment(s): Pt has never had surgery Past Anesthesia/Blood Transfusion Reactions: Unable to Obtain Additional Past Anesthesia/Blood Transfusion Reaction / Comm: Pt has never had surgery. Past Psychological History: Anxiety Additional Psychological History / Comment(s): Pt resides with his girlfriend. He has a glucometer. Smoking Status: Current every day smoker, Vaper Past Alcohol Use History: Abuse, Daily, Heavy Additional Past Alcohol Use History / Comment(s): Pt started smoking in 1995 and smokes approximately 2 cigarettes a day. He states he vapes daily as well. Pt states he drinks between 1/5 and 1/2 gallon of vodka daily. Past Drug Use History: None Reported - Past Family History Father Family Medical History: Diabetes Mellitus Mother History Unknown: Yes Additional Family Medical History / Comment(s): Pt does not have contact with his mother. Medications and Allergies Home Medications Medication Instructions Recorded Confirmed Type INSULIN LISPRO (HumaLOG) [humaLOG] See Protocol SQ AC-TID 12/30/20 10/22/21 History ALPRAZolam [Xanax] 0.25 mg PO HS PRN 07/22/21 10/22/21 History Thiamine [Vitamin B-1] 100 mg PO BID-W/MEALS #60 tab 07/23/21 10/22/21 Rx Multivitamins, Thera [Multivitamin 1 tab PO DAILY 09/01/21 10/22/21 History (formulary)] Betamethasone Dipropionate 1 applic TOPICAL DAILY 10/20/21 10/22/21 History [Betamethasone Dipropionate 0.05%] Folic Acid 0.4 mg PO DAILY 10/20/21 10/22/21 History Naltrexone HCl [Revia] 50 mg PO DAILY 10/20/21 10/22/21 History Nicotine 14Mg/24Hr Patch [Habitrol] 1 patch TRANSDERM DAILY PRN 10/20/21 10/22/21 History Ondansetron [Zofran ODT] 4 mg PO Q8HR #20 tab 10/20/21 10/22/21 Rx traZODone HCL 50 mg PO HS PRN 10/20/21 10/22/21 History Insulin Glargine [Lantus Vial] 30 unit SQ DAILY #0 10/25/21 10/22/21 Rx Mag Hydrox/Al Hydrox/Simeth 30 ml PO QID 7 Days #840 ml 10/25/21 Rx [Maalox] Pantoprazole Sodium [Protonix] 40 mg PO BID #60 tab 10/25/21 Rx chlordiazePOXIDE HCl [Librium] See Taper PO DAILY 3 Days #6 10/25/21 Rx capsule Allergies Allergy/AdvReac Type Severity Reaction Status Date / Time No Known Allergies Allergy Verified 10/22/21 16:55 Surgical - Exam Vital Signs Temp Pulse Resp BP Pulse Ox 98.4 F 95 18 127/75 97 10/22/21 15:33 10/22/21 15:33 10/22/21 15:33 10/22/21 15:33 10/22/21 15:33 Results - Labs 10/26/21 07:27 10/26/21 07:27 Abnormal Lab Results - Last 24 Hours (Table) 10/25/21 10/25/21 10/26/21 Range/Units 16:33 19:34 05:12 Sodium (137-145) mmol/L Glucose (74-99) mg/dL POC Glucose (mg/dL) 125 H 125 H 204 H (75-99) mg/dL Total Bilirubin (0.2-1.3) mg/dL AST (17-59) U/L ALT (4-49) U/L Total Protein (6.3-8.2) g/dL Amylase (30-110) U/L Lipase (23-300) U/L 10/26/21 10/26/21 Range/Units 07:27 11:43 Sodium 132 L (137-145) mmol/L Glucose 273 H (74-99) mg/dL POC Glucose (mg/dL) 320 H (75-99) mg/dL Total Bilirubin 2.2 H (0.2-1.3) mg/dL AST 156 H (17-59) U/L ALT 145 H (4-49) U/L Total Protein 6.2 L (6.3-8.2) g/dL Amylase <30 L (30-110) U/L Lipase 13 L (23-300) U/L Diabetes panel 10/26/21 Range/Units 07:27 Sodium 132 L (137-145) mmol/L Potassium 4.4 (3.5-5.1) mmol/L Chloride 98 (98-107) mmol/L Carbon Dioxide 27 (22-30) mmol/L BUN 12 (9-20) mg/dL Creatinine 0.78 (0.66-1.25) mg/dL Glucose 273 H (74-99) mg/dL Calcium 9.1 (8.4-10.2) mg/dL AST 156 H (17-59) U/L ALT 145 H (4-49) U/L Alkaline Phosphatase 102 (38-126) U/L Total Protein 6.2 L (6.3-8.2) g/dL Albumin 3.9 (3.5-5.0) g/dL Calcium panel 10/26/21 Range/Units 07:27 Calcium 9.1 (8.4-10.2) mg/dL Albumin 3.9 (3.5-5.0) g/dL Pituitary panel 10/26/21 Range/Units 07:27 Sodium 132 L (137-145) mmol/L Potassium 4.4 (3.5-5.1) mmol/L Chloride 98 (98-107) mmol/L Carbon Dioxide 27 (22-30) mmol/L BUN 12 (9-20) mg/dL Creatinine 0.78 (0.66-1.25) mg/dL Glucose 273 H (74-99) mg/dL Calcium 9.1 (8.4-10.2) mg/dL Adrenal panel 10/26/21 Range/Units 07:27 Sodium 132 L (137-145) mmol/L Potassium 4.4 (3.5-5.1) mmol/L Chloride 98 (98-107) mmol/L Carbon Dioxide 27 (22-30) mmol/L BUN 12 (9-20) mg/dL Creatinine 0.78 (0.66-1.25) mg/dL Glucose 273 H (74-99) mg/dL Calcium 9.1 (8.4-10.2) mg/dL Total Bilirubin 2.2 H (0.2-1.3) mg/dL AST 156 H (17-59) U/L ALT 145 H (4-49) U/L Alkaline Phosphatase 102 (38-126) U/L Total Protein 6.2 L (6.3-8.2) g/dL Albumin 3.9 (3.5-5.0) g/dL <Tip Poole - Last Filed: 10/27/21 11:48> History of Present Illness History of present illness: CAT scan shows evidence of a large pancreatic pseudocyst as well as chronic pancreatitis. This may be contributing to his epigastric pain. Surgical - Exam Vital Signs Temp Pulse Resp BP Pulse Ox 98.4 F 95 18 127/75 97 10/22/21 15:33 10/22/21 15:33 10/22/21 15:33 10/22/21 15:33 10/22/21 15:33 Results - Labs 10/27/21 08:06 10/27/21 08:06 Abnormal Lab Results - Last 24 Hours (Table) 10/26/21 10/27/21 10/27/21 Range/Units 20:18 02:13 07:56 Sodium (137-145) mmol/L Carbon Dioxide (22-30) mmol/L Glucose (74-99) mg/dL POC Glucose (mg/dL) 114 H 148 H 146 H (75-99) mg/dL 10/27/21 10/27/21 Range/Units 08:06 11:12 Sodium 136 L (137-145) mmol/L Carbon Dioxide 32 H (22-30) mmol/L Glucose 155 H (74-99) mg/dL POC Glucose (mg/dL) 174 H (75-99) mg/dL Diabetes panel 10/27/21 Range/Units 08:06 Sodium 136 L (137-145) mmol/L Potassium 3.9 (3.5-5.1) mmol/L Chloride 102 (98-107) mmol/L Carbon Dioxide 32 H (22-30) mmol/L BUN 12 (9-20) mg/dL Creatinine 0.80 (0.66-1.25) mg/dL Glucose 155 H (74-99) mg/dL Calcium 8.8 (8.4-10.2) mg/dL Calcium panel 10/27/21 Range/Units 08:06 Calcium 8.8 (8.4-10.2) mg/dL Pituitary panel 10/27/21 Range/Units 08:06 Sodium 136 L (137-145) mmol/L Potassium 3.9 (3.5-5.1) mmol/L Chloride 102 (98-107) mmol/L Carbon Dioxide 32 H (22-30) mmol/L BUN 12 (9-20) mg/dL Creatinine 0.80 (0.66-1.25) mg/dL Glucose 155 H (74-99) mg/dL Calcium 8.8 (8.4-10.2) mg/dL Adrenal panel 10/27/21 Range/Units 08:06 Sodium 136 L (137-145) mmol/L Potassium 3.9 (3.5-5.1) mmol/L Chloride 102 (98-107) mmol/L Carbon Dioxide 32 H (22-30) mmol/L BUN 12 (9-20) mg/dL Creatinine 0.80 (0.66-1.25) mg/dL Glucose 155 H (74-99) mg/dL Calcium 8.8 (8.4-10.2) mg/dL Assessment and Plan Plan: Epigastric pain. History of chronic pancreatitis with pancreatic pseudocyst formation. Patient will undergo EGD in the a.m.
[2021-10-26] MEDS: ONDANSETRON 4 MG/2 ML VIAL IVP PRN (15:42)
[2021-10-26 16:28] LABS: Glucose,Whole Blood 86 mg/dL (75-99)
[2021-10-26 20:19] LABS: Glucose,Whole Blood 114 mg/dL (75-99)
[2021-10-27] MEDS: LORazepam 2 MG/ML INJ IV PRN ×2 (00:26→06:16)
[2021-10-27] MEDS: SODIUM CHLORIDE 0.9% 1,000 ML IV SCH ×2 (00:29→12:24)
[2021-10-27 02:16] LABS: Glucose,Whole Blood 148 mg/dL (75-99)
[2021-10-27] MEDS: MORPHINE SULFATE 2 MG/ML SYRINGE IVP PRN ×2 (04:13→10:55)
[2021-10-27 06:09] LABS: Glucose,Whole Blood 99 mg/dL (75-99)
[2021-10-27] MEDS: THIAMINE 100 MG TAB PO SCH ×2 (07:47→18:22)
[2021-10-27] MEDS: INSULIN ASPART (NovoLOG) 100 UNIT/ML VIAL SQ SCH ×7 (07:47→20:32)
[2021-10-27] MEDS: INSULIN DETEMIR (LEVEMIR) 100 UNIT/ML SYR SQ SCH (07:57)
[2021-10-27] MEDS: PANTOPRAZOLE 40 MG/10 ML VIAL IVP SCH ×2 (07:57→20:32)
[2021-10-27] MEDS: FOLIC ACID 1 MG TAB PO SCH (07:57)
[2021-10-27] MEDS: MAG HYDROX/AL HYDROX/SIMETH 30 ML CUP PO SCH ×4 (07:57→20:32)
[2021-10-27] MEDS: chlordiazePOXIDE 25 MG CAP PO SCH ×3 (07:57→20:32)
[2021-10-27] MEDS: MULTIVITAMINS, THERA 1 EACH TAB PO SCH (07:57)
[2021-10-27 07:58] LABS: Glucose,Whole Blood 146 mg/dL (75-99)
[2021-10-27 09:22] LABS: Basophils % (A) 0 %; Eosinophils # (A) 0.2 k/uL (0-0.7); Eosinophils % (A) 5 %; HCT 42.3 % (39.0-53.0); HGB 13.9 gm/dL (13.0-17.5); Lymphocytes # (A) 1.3 k/uL (1.0-4.8); Lymphocytes % (A) 35 %; MCH 32.1 pg (25.0-35.0); MCHC 32.9 g/dL (31.0-37.0); MCV 97.7 fL (80.0-100.0); Mean Platelet Volume 8.5; Monocytes # (A) 0.2 k/uL (0-1.0); Monocytes % (A) 5 %; Neutrophils # (A) 1.9 k/uL (1.3-7.7); Neutrophils % (A) 51 %; Platelet Count 156 k/uL (150-450); RBC 4.33 m/uL (4.30-5.90); RDW 12.8 % (11.5-15.5); WBC 3.8 k/uL (3.8-10.6)
[2021-10-27 09:33] LABS: African American GFR (CKD) >90 (>60 ml/min/1.73 sqM); Anion Gap 2 mmol/L; Blood Urea Nitrogen 12 mg/dL (9-20); Calcium 8.8 mg/dL (8.4-10.2); Carbon Dioxide 32 mmol/L (22-30); Chloride 102 mmol/L (98-107); Glucose 155 mg/dL (74-99); Non-African American GFR(CKD) >90 (>60 ml/min/1.73 sqM); Potassium 3.9 mmol/L (3.5-5.1); Sodium 136 mmol/L (137-145)
[2021-10-27 11:14] LABS: Glucose,Whole Blood 174 mg/dL (75-99)
[2021-10-27] MEDS ORDERED: PROPOFOL 10 MG/ML 20 ML VIAL IV ONE (11:34)
[2021-10-27] MEDS ORDERED: LIDOCAINE 1% INJ 10MG/ML (20 ML MDV) ONE (11:34)
[2021-10-27] MEDS ORDERED: IV FLUID CONTINUATION 1,000 ML IV ONE (11:35)
--- NOTE | 2021-10-27 11:52 | P.OP ---
Date of Procedure: 10/27/21 Preoperative Diagnosis: GI bleed Epigastric pain Postoperative Diagnosis: Duodenitis Mild antral gastritis Procedure(s) Performed: EGD Anesthesia: [place] Surgeon: Tip Gamble Pathology: other (Duodenum, gastric antrum) Condition: stable Disposition: PACU Description of Procedure: The patient's placed on the endoscopy table in the lateral position. He received IV sedation. The gastro-/oropharynx passed in the esophagus into the stomach. Scope was then placed through the pylorus. The first and second portion of the duodenum appeared inflamed. A biopsies performed. The scope was then brought back the antrum this was minimal inflamed. Biopsies performed. There is no evidence of any blood in the upper GI tract. There was a suggestion of the pancreatic pseudocyst in the antrum. This was near the incisura of the lesser curve. The gastroscope was then retroflexed and remainder of the stomach appeared normal. The GE junction was at 40 cm. The distal esophagus appeared normal. The proximal esophagus appeared normal. There was no evidence of hiatal hernia. There is no evidence of any upper GI bleed. His presumed patient's abdominal pain was due to his large pancreatic pseudocyst.
[2021-10-27 13:15] LABS: Glucose,Whole Blood 142 mg/dL (75-99)
--- NOTE | 2021-10-27 13:27 | P.PN ---
Subjective Progress Note Date: 10/27/21 This is a 41-year-old male who presents to the emergency room with complaints of abdominal pain associated nausea vomiting. Patient has reported blood in the vomit. However vomiting has resolved and patient came to the hospital. States that he vomits only when he drinks alcohol which is daily when he binges. Patient has a medical history significant for GERD, chronic pancreatitis, diabetes mellitus questionable whether type I or type II has been a diabetic for around 3 and a half years, most probably type I with recurrent episodes of DKA. Uses lantus and humalog at home, states he has not taken his insulin for 1.5 days as he has been drinking. 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 Patient also is a chronic heavy daily alcohol user admits to drinking 1/5 per day, Occasional tobacco use. Follows with Dr Cholo Galvan in the primary care office, has an appointment with Dr Rivas for endo at the end of this month. Reports having a scope done in the past, seems to be referring more to a POLO than EGD, patient is unsure what it was for states about 1.5 years ago he had it done. Patient recently admitted to the hospital 4 days ago for vomiting and also in August of this year for DKA. Labs on admission show unremarkable blood count panel, INR 0.9, sodium 136, potassium 5.0, chloride 97, CO2 13, BUN 12, creatinine 0.80, blood glucose in the 200s, lactic acid 3.2, bili 1.9, ALT 50, alk phos 179, albumin 5.2, urinalysis shows positive protein glucose ketones and he is acetone positive. Patient admitted to the hospital with diabetic ketoacidosis was started on insulin drip received a 1 L fluid bolus. DKA has since resolved with anion gap 9 and CO2 24 patient can transition off the insulin gtt to levemir 23 units and novolog. 10/24/2021 Patient evaluated today resting in bed. States that he has just been sleeping for the last 2 days. Per nurse patient is having episodes of diaphoresis however, no tremors noted. Patient continues with nausea no vomiting no diarrhea stools are looser no reports of blood. He tolerated diet okay. Still complains of a "burning ball" in his stomach. He has received 2 doses of IV ativan today. Patient verbalizes understanding of need for alcohol cessation, and states he does want to quit alcohol. Receiving protonix BID IV, maalox, morphine for pain management. Labs today show stable hemoglobin 13.9, sodium 132, potassium 4.1, blood glucose spike to the 300s is back down to 116. He is afebrile, heart rate 83, blood pressure 106/69, 99% room air. 10/25/2021 Patient resting in bed today he is more awake and states over all he is feeling much better. Had not had any episodes of emesis this admission so far. Did get 1 mg of ativan this morning, began librium taper today. Patient states abdominal pain is improving, although still with complaints of epigastric burning and states the pain feels better when you press on the stomach. He has been on IV protonix BID as well as maalox. Patient was feeling stable for discharge and recommended to follow up with GI in the office for EGD as he has a history of chronic alcohol abuse with alcoholic gastritis. After lunch today patient vomited some undigested food and per nurse was a brown murky color similar to stool but unable to determine. Patient has been drinking cola at the bedside. At this time as well patients heart rate elevated into the 140s on telemetry. Discharge held and patient will be monitored over night can resume CIWA if needed and consult gen bairon. Also Abominal Pelvis CT ordered. 10/26/2021 Patient evaluated today resting in bed. Concerns for acute alcohol withdrawal throughout the evening he was restarted back on CIWA while pending surgical evaluation today. Abdominal pelvis CT shows pancreatic calcifications consistent with chronic pancreatitis with a large pancreatic cyst consistent with pseudocyst, the pancreas is unchanged compared to old exam with no acute abnormality in the abdomen or pelvis. Patient is supposed to be on pancreatic enzymes however he cannot afford them. Continues with the epigastric burning sensation that is resolved with pressing on the epigastric region. No further episodes of vomiting. Blood sugar elevated in the 300s today. Patient scheduled to undergo EGD tomorrow. Afebrile, heart rate 83, blood pressure 120/76, 98% room air. 10/27/2021 Patient is seen this morning and follow-up currently awaiting to undergo EGD with surgical services today and is nothing by mouth. Patient maintained on CIWA protocol and we'll transition to oral once EGD is done and closely monitored. Will await surgical report. Patient is scheduled to follow-up with endocrine along with GI in the outpatient setting although has failed to follow- up. Patient does have a appointment scheduled with endocrine in 2 weeks. Currently no reports of bleeding noted and no further episodes of vomiting. P atient continues with abdominal tenderness. Currently denies any chest pain, shortness of breath, or palpitations. Patient is afebrile. Patient will also be continued on Protonix twice daily. REVIEW OF SYSTEMS: CONSTITUTIONAL: No fever, no malaise, no fatigue. HEENT: No recent visual problems or hearing problems. Denied any sore throat. CARDIOVASCULAR: No chest pain, orthopnea, PND, no palpitations, no syncope. PULMONARY: No shortness of breath, no cough, no hemoptysis. GASTROINTESTINAL: No diarrhea, no nausea, reports epigastric discomfort and abdominal tenderness. NEUROLOGICAL: No headaches, no weakness, no numbness. All inpatient medications reviewed and appropriate. Active Medications Al Hydroxide/Mg Hydroxide (Mag Hydrox/Al Hydrox/Simeth 30 Ml Cup) 30 ml PO QID [facility] Last Admin: 10/27/21 12:31 Dose: 30 ml Documented by: Alprazolam (Alprazolam 0.25 Mg Tab) 0.25 mg PO HS PRN PRN Reason: Anxiety Last Admin: 10/27/21 12:31 Dose: 0.25 mg Documented by: Alprazolam (Alprazolam 0.25 Mg Tab) 0.25 mg PO BID PRN PRN Reason: Anxiety Chlordiazepoxide HCl (Chlordiazepoxide 25 Mg Cap) 25 mg PO TID [facility] Last Admin: 10/27/21 07:57 Dose: 25 mg Documented by: Folic Acid (Folic Acid 1 Mg Tab) 1 mg PO DAILY [facility] Last Admin: 10/27/21 07:57 Dose: 1 mg Documented by: Sodium Chloride (Saline 0.9%) 1,000 mls @ 75 mls/hr IV .[id number] [facility] Last Admin: 10/27/21 12:24 Dose: 75 mls/hr Documented by: Insulin Aspart (Insulin Aspart (Novolog) 100 Unit/Ml Vial) 0 unit SQ ACHS [facility]; Protocol Last Admin: 10/27/21 07:47 Dose: Not Given Documented by: Insulin Aspart (Insulin Aspart (Novolog) 100 Unit/Ml Vial) 6 unit SQ AC-TID [facility] Last Admin: 10/27/21 07:47 Dose: Not Given Documented by: Insulin Detemir (Insulin Detemir (Levemir) 100 Unit/Ml Syr) 30 unit SQ DAILY@0700 [facility] Last Admin: 10/27/21 07:57 Dose: 30 unit Documented by: Morphine Sulfate (Morphine Sulfate 2 Mg/Ml Syringe) 2 mg IVP Q4HR PRN PRN Reason: Pain/Discomfort Last Admin: 10/27/21 10:55 Dose: 2 mg Documented by: Multivitamins (Multivitamins, Thera 1 Each Tab) 1 each PO DAILY [facility] Last Admin: 10/27/21 07:57 Dose: 1 each Documented by: Nicotine (Nicotine 14mg/24hr Patch) 1 patch TRANSDERM DAILY PRN PRN Reason: Nicotine Cravings Ondansetron HCl (Ondansetron 4 Mg/2 Ml Vial) 4 mg IVP Q6HR PRN PRN Reason: Nausea And Vomiting Last Admin: 10/26/21 15:42 Dose: 4 mg Documented by: Pantoprazole Sodium (Pantoprazole 40 Mg/10 Ml Vial) 40 mg IVP BID [facility] Last Admin: 10/27/21 07:57 Dose: 40 mg Documented by: Thiamine HCl (Thiamine 100 Mg Tab) 100 mg PO BID-W/MEALS [facility] Last Admin: 10/27/21 07:47 Dose: Not Given Documented by: Trazodone HCl (Trazodone Hcl 50 Mg Tab) 50 mg PO HS PRN PRN Reason: sleep PHYSICAL EXAMINATION: GENERAL: The patient is alert and oriented x3, not in any acute distress. Well developed, well nourished. HEENT: Pupils are round and equally reacting to light. EOMI. No scleral icterus. No conjunctival pallor. Normocephalic, atraumatic. No pharyngeal erythema. No thyromegaly. CARDIOVASCULAR: S1 and S2 muffled. PULMONARY: Diminished breath sounds bilaterally with no wheezing or crackles noted ABDOMEN: Soft, mild tender epigastric region, nondistended, normoactive bowel sounds. No palpable organomegaly. MUSCULOSKELETAL: No joint swelling or deformity. EXTREMITIES: No cyanosis, clubbing, or pedal edema. NEUROLOGICAL: Gross neurological examination did not reveal any focal deficits. SKIN: No rashes. Assessment: Diabetic Ketoacidosis , present on admission Nausea/vomiting secondary to gastritis from chronic alcohol abuse Anion gap metabolic acidosis secondary to diabetic ketoacidosis, resolved currently Acute alcohol withdrawal Acute alcoholic hepatitis Alcoholic gastritis with history of GERD Hyponatremia, hypovolemic, improving Hypomagnesemia, improved Diabetes Mellitus, uncontrolled, most recent A1C documented in Jun was 12.0 Chronic daily alcohol abuse History of delirium tremens Chronic nicotine use History of peripheral neuropathy Anxiety GI Prophylaxis DVT Prophylaxis Plan: Recommend continue with current medications and management. Patient was scheduled for EGD today with surgery which showed the first and second portion of the duodenum appeared inflamed along with the antrum which was minimally inflamed and no evidence of any blood in the upper GI tract, there is a suggestion of a pancreatic pseudocyst in the antrum that was near the lesser curve and the rest of the stomach appeared normal along with the distal esophagus also appearing normal with no evidence of hiatal hernia. Biopsies were obtained patient will follow-up in the outpatient setting for results. Patient was maintained on CIWA protocol and will continue with Librium and Xanax as needed and encourage the patient increase activity as tolerated and opening up the windows and sitting up out of the bed more often. Recommend continue with Accu-Cheks before meals and at bedtime close monitoring. Blood sugars have been more controlled on current regimen and will continue and patient does have an appointment in the outpatient setting to follow up with endocrine in 2 weeks. Patient will be started on diet after EGD and will monitor closely. Possible discharge in 24 hours. The impression and plan of care has been dictated by Ramona Szymanski, nurse practitioner as directed. MD Joanne I have performed a history and examination and MDM of this patient, discussed the same with the dictator, and agree with the dictator's assessment and plan as written ,documented as a scribe. Based on total visit time, I have performed more than 50% of the visit. Total number of minutes spent on this visit, 15 minutes. Any additional findings or plans will be noted. Objective - Vital Signs Vital signs: Vital Signs Temp 98 F 10/27/21 04:00 Pulse 63 10/27/21 04:00 Resp 18 10/27/21 04:00 BP 96/63 10/27/21 04:00 Pulse Ox 98 10/27/21 04:00 Intake & Output 10/26/21 10/27/21 10/27/21 18:59 06:59 18:59 Intake Total 630 310 Balance 630 310 Intake: IV 10 10 Invasive Line 2 10 10 Oral 620 300 Other: Voiding Method Toilet Toilet # Voids 1 2 - Labs CBC & Chem 7: 10/27/21 08:06 10/27/21 08:06 Labs: Abnormal Lab Results - Last 24 Hours (Table) 10/26/21 10/26/21 10/27/21 Range/Units 11:43 20:18 02:13 Sodium (137-145) mmol/L Carbon Dioxide (22-30) mmol/L Glucose (74-99) mg/dL POC Glucose (mg/dL) 320 H 114 H 148 H (75-99) mg/dL 10/27/21 10/27/21 Range/Units 07:56 08:06 Sodium 136 L (137-145) mmol/L Carbon Dioxide 32 H (22-30) mmol/L Glucose 155 H (74-99) mg/dL POC Glucose (mg/dL) 146 H (75-99) mg/dL
[2021-10-27] MEDS: HYDROcodone/APAP 5-325MG 1 EACH TAB PO PRN ×2 (16:16→22:45)
[2021-10-27 16:31] LABS: Glucose,Whole Blood 95 mg/dL (75-99)
[2021-10-27] MEDS: ALPRAZolam 0.25 MG TAB PO PRN ×2 (18:25→23:20)
[2021-10-27 20:16] LABS: Glucose,Whole Blood 172 mg/dL (75-99)
[2021-10-28] MEDS: SODIUM CHLORIDE 0.9% 1,000 ML IV SCH (00:22)
[2021-10-28 06:44] LABS: Glucose,Whole Blood 366 mg/dL (75-99)
[2021-10-28 07:33] VITALS: RESP 17
[2021-10-28] MEDS: FOLIC ACID 1 MG TAB PO SCH (07:53)
[2021-10-28] MEDS: MULTIVITAMINS, THERA 1 EACH TAB PO SCH (07:53)
[2021-10-28] MEDS: INSULIN DETEMIR (LEVEMIR) 100 UNIT/ML SYR SQ SCH (07:53)
[2021-10-28] MEDS: chlordiazePOXIDE 25 MG CAP PO SCH ×2 (07:53→15:13)
[2021-10-28] MEDS: THIAMINE 100 MG TAB PO SCH ×2 (07:53→17:16)
[2021-10-28] MEDS: MAG HYDROX/AL HYDROX/SIMETH 30 ML CUP PO SCH ×3 (07:54→17:16)
[2021-10-28] MEDS: INSULIN ASPART (NovoLOG) 100 UNIT/ML VIAL SQ SCH ×6 (07:54→17:16)
[2021-10-28] MEDS: MORPHINE SULFATE 2 MG/ML SYRINGE IVP PRN ×3 (07:55→18:23)
[2021-10-28] MEDS: ALPRAZolam 0.25 MG TAB PO PRN (07:55)
[2021-10-28] MEDS: PANTOPRAZOLE 40 MG/10 ML VIAL IVP SCH (07:56)
--- NOTE | 2021-10-28 11:24 | P.PN ---
Subjective Progress Note Date: 10/28/21 CHIEF COMPLAINT: Epigastric pain with nausea and vomiting HISTORY OF PRESENT ILLNESS: Patient is status post EGD revealing duodenitis and mild antral gastritis. There is no evidence of any upper GI bleed. Patient reports that his pain has shown improvement. He is tolerating diet. Afebrile. PHYSICAL EXAM: VITAL SIGNS: Reviewed. GENERAL: Well-developed in no acute distress. HEENT: No sclera icterus. Extraocular movements grossly intact. Moist buccal mucosa. Head is atraumatic, normocephalic. ABDOMEN: Soft. Nondistended. Mild epigastric tenderness NEUROLOGIC: Alert and oriented. Cranial nerves II through XII grossly intact. ASSESSMENT: 1. Epigastric abdominal pain with nausea and vomiting status post EGD revealing duodenitis and mild antral gastritis 2. Alcohol abuse 3. Large Pancreatic pseudocyst may be contributing to patient's pain PLAN: -Patient is stable from surgical standpoint for discharge -Educated patient to refrain from alcohol use -Continue PPI Physician Meter Reading Clerk note has been reviewed by physician. Signing provider agrees with the documented findings, assessment, and plan of care. Objective - Vital Signs Vital signs: Vital Signs Temp 98.9 F 10/28/21 07:32 Pulse 81 10/28/21 07:32 Resp 17 10/28/21 07:32 BP 111/70 10/28/21 07:32 Pulse Ox 97 10/28/21 07:32 Intake & Output 10/27/21 10/28/21 10/28/21 18:59 06:59 18:59 Intake Total 1100 Balance 1100 Intake: IV 50 Intake, IV Titration 1050 Amount IV Fluid Continuation 1, 150 000 ml @ 0 mls/hr IV .[facility] Rx#:[id number] Sodium Chloride 0.9% 1, 900 000 ml @ 75 mls/hr IV . [id number] Rx#:[id number] Other: Voiding Method Toilet Toilet # Voids 4 1 1 # Bowel Movements 1 - Labs CBC & Chem 7: 10/27/21 08:06 10/27/21 08:06 Labs: Abnormal Lab Results - Last 24 Hours (Table) 10/27/21 10/27/21 10/28/21 Range/Units 13:12 20:14 06:43 POC Glucose (mg/dL) 142 H 172 H 366 H (75-99) mg/dL
[2021-10-28 11:38] LABS: Glucose,Whole Blood 143 mg/dL (75-99)
[2021-10-28 14:13] VITALS: BP 111/65; PULSE 84; TEMP 98
[2021-10-28 16:27] LABS: Glucose,Whole Blood 145 mg/dL (75-99)
--- NOTE | 2021-10-29 08:58 | P.DS ---
Providers Date of admission: 10/22/21 17:16 Expected date of discharge: 10/28/21 Attending physician: Muriel Nick Consults: 10/25/21 14:10 Consult Physician Routine Consulting Provider: Tip Gamble Consult Reason/Comments: epigastric burning, emesis Do you want consulting provider notified?: Yes Primary care physician: Cole Emmanuel MD Hospital Course: Final diagnosis Diabetic Ketoacidosis , present on admission Nausea/vomiting secondary to gastritis from chronic alcohol abuse Anion gap metabolic acidosis secondary to diabetic ketoacidosis, resolved currently Acute alcohol withdrawal Acute alcoholic hepatitis Alcoholic gastritis with history of GERD Hyponatremia, hypovolemic, improving Hypomagnesemia, improved Diabetes Mellitus, uncontrolled, most recent A1C documented in Jun was 12.0 Chronic daily alcohol abuse History of delirium tremens Chronic nicotine use History of peripheral neuropathy Anxiety GI Prophylaxis DVT Prophylaxis Discharge disposition Patient is being discharged in a stable condition with guarded prognosis to home. Patient will follow-up with Dr. Cole Emmanuel in the outpatient setting upon discharge. Patient will also follow up with endocrine Dr. Rivas along with general surgery and GI in the outpatient setting. Patient is to continue with Protonix twice daily and tight glycemic control. Total time taken is gr eater than 35 minutes. Hospital course This is a 41-year-old male who was recently admitted with abdominal pain associated with nausea and vomiting patient also reported blood in his vomit and was being closely monitored. Patient was found to be in DKA along with acute alcohol withdrawal. Patient was evaluated by GI and underwent EGD showing no active bleeding and there was some inflammation in the duodenum and biopsies were obtained and patient will follow-up with general surgery in the outpatient setting for results in one week. Patient was maintained on CIWA protocol and was educated and instructed to avoid all alcohol intake. Patient's blood sugars more in control although patient has some noncompliance issues with medications and does have a follow-up appointment with correspondence section supervisor in one week. Patient will continue current meds and also instructed to follow-up with primary care provider on discharge. Patient is to also follow-up with GI as instructed. Currently no reports of chest pain, shortness of breath, or palpitations. Patient is afebrile. No reports of nausea or vomiting and patient is tolerating diet. Patient will be discharged home today. On exam vital signs are stable. Cardio S1, S2 are muffled. Respiratory system shows diminished breath sounds at the bases with no wheezing or rhonchi noted. Abdomen is soft and nontender. Nervous system shows no focal deficits. Please refer to medication reconciliation sheet for a list of medications. The impression and plan of care has been dictated by Ramona Szymanski, nurse practitioner as directed. MD Joanne I have performed a history and examination and MDM of this patient, discussed the same with the dictator, and agree with the dictator's assessment and plan as written ,documented as a scribe. Based on total visit time, I have performed more than 50% of the visit. Total number of minutes spent on this visit, 10 minutes. Any additional findings or plans will be noted. Patient Condition at Discharge: Stable Plan - Discharge Summary Discharge Rx Participant: Yes New Discharge Prescriptions: New chlordiazePOXIDE HCl [Librium] See Taper PO DAILY 3 Days #6 capsule Mag Hydrox/Al Hydrox/Simeth [Maalox] 30 ml PO QID 7 Days #840 ml Pantoprazole Sodium [Protonix] 40 mg PO BID #60 tab HYDROcodone/APAP 5-325MG [[place] 5-325] 1 each PO Q6HR PRN #6 tab PRN Reason: Pain Continue INSULIN LISPRO (HumaLOG) [humaLOG] See Protocol SQ AC-TID ALPRAZolam [Xanax] 0.25 mg PO HS PRN PRN Reason: Anxiety Thiamine [Vitamin B-1] 100 mg PO BID-W/MEALS #60 tab Multivitamins, Thera [Multivitamin (formulary)] 1 tab PO DAILY Ondansetron [Zofran ODT] 4 mg PO Q8HR #20 tab Nicotine 14Mg/24Hr Patch [Habitrol] 1 patch TRANSDERM DAILY PRN PRN Reason: Nicotine Cravings Folic Acid 0.4 mg PO DAILY Naltrexone HCl [Revia] 50 mg PO DAILY traZODone HCL 50 mg PO HS PRN PRN Reason: sleep Betamethasone Dipropionate [Betamethasone Dipropionate 0.05%] 1 applic TOPICAL DAILY Changed Insulin Glargine [Lantus Vial] 30 unit SQ DAILY #0 Discontinued Pantoprazole Sodium [Protonix] 20 mg PO DAILY Discharge Medication List INSULIN LISPRO (HumaLOG) [humaLOG] See Protocol SQ AC-TID 12/30/20 [History] ALPRAZolam [Xanax] 0.25 mg PO HS PRN 07/22/21 [History] Thiamine [Vitamin B-1] 100 mg PO BID-W/MEALS #60 tab 07/23/21 [Rx] Multivitamins, Thera [Multivitamin (formulary)] 1 tab PO DAILY 09/01/21 [History] Betamethasone Dipropionate [Betamethasone Dipropionate 0.05%] 1 applic TOPICAL DAILY 10/20/21 [History] Folic Acid 0.4 mg PO DAILY 10/20/21 [History] Naltrexone HCl [Revia] 50 mg PO DAILY 10/20/21 [History] Nicotine 14Mg/24Hr Patch [Habitrol] 1 patch TRANSDERM DAILY PRN 10/20/21 [History] Ondansetron [Zofran ODT] 4 mg PO Q8HR #20 tab 10/20/21 [Rx] traZODone HCL 50 mg PO HS PRN 10/20/21 [History] Insulin Glargine [Lantus Vial] 30 unit SQ DAILY #0 10/25/21 [Rx] Mag Hydrox/Al Hydrox/Simeth [Maalox] 30 ml PO QID 7 Days #840 ml 10/25/21 [Rx] Pantoprazole Sodium [Protonix] 40 mg PO BID #60 tab 10/25/21 [Rx] chlordiazePOXIDE HCl [Librium] See Taper PO DAILY 3 Days #6 capsule 10/25/21 [Rx] HYDROcodone/APAP 5-325MG [[place] 5-325] 1 each PO Q6HR PRN #6 tab 10/28/21 [Rx] Follow up Appointment(s)/Referral(s): Nirmal Rivas MD [REFERRING] - 11/09/21 10:30 am Isabel Eubanks MD [STAFF PHYSICIAN] - 2 Weeks (office closed at time of discharge) Cole Emmanuel MD [Primary Care Provider] - 1-2 days Tip Gamble MD [STAFF PHYSICIAN] - 11/06/21 11:30 am Patient Instructions/Handouts: Gastritis (DC), Diabetic Ketoacidosis (DC) Activity/Diet/Wound Care/Special Instructions: Keep your appointment with Dr Rivas Follow up with Gastroenterology Dr Brianna Eubanks Recommend complete abstinence from alcohol, caffeine and spicy foods Take protonix 40 mg twice a day Discharge/Stand Alone Forms: Work/Release Restrictions Form Discharge Disposition: HOME SELF-CARE
--- NOTE | 2021-10-30 11:50 | CDI ---
Documentation Clarification Form Date: 10/30/2021 11:40:48 AM From: Heath Gomez Admit Date: 10/22/2021 05:16:00 PM Patient Name: Santos Martino Visit Number: [id number] Discharge Date: 10/28/2021 07:07:00 PM ATTENTION: The Clinical Documentation Specialists (CDI) and [facility] Coding Staff appreciate your assistance in clarifying documentation. Please respond to the clarification below the line at the bottom and electronically sign. The CDI & [facility] Coding staff will review the response and follow-up if needed. Please note: Queries are made part of the Legal Health Record. If you have any questions, please contact the author of this message via ITS. Dr. Muriel Nick The patients principal diagnosis the diagnosis that was chiefly responsible for the admission - has not been clearly identified and clarification is requested. The patient presented with the diabetic ketoacidosis and abdominal pain History/Risk factors: DM I, hx of medication noncomplicance, ETOH abuse, chronic pancreatitis Clinical Indicators: Lab findings: ketoacidosis Radiology findings: EGD: alcoholic gastritis and duodenitis Vital Signs: Treatment: EGD, insulin Consults: GI In your professional opinion, can you please clarify which diagnosis, after study, was the reason chiefly responsible for the admission? [ ] diabetic ketoacidosis [ ] alcoholic gastrtis [ ] Other, please specify [ ] Unable to determine [ ] DKA and gastritis equally alcoholic gastrtis MTDD
== END 2021-10-28 19:07 | disposition home or self-care (01) | DRG 391 ==
LOC: EC 14:57 → 3SCARD 17:16 → 4SSUR 10-27 23:11
PROVIDERS: ADMIT Hospitalist; ATTEND Hospitalist
PROC: 0DB78ZX Excision of Stomach, Pylorus, Via Natural or Artificial Opening Endoscopic, Diagnostic (ICD-10-PCS; 2021-10-27)
PROC: 0DB98ZX Excision of Duodenum, Via Natural or Artificial Opening Endoscopic, Diagnostic (ICD-10-PCS; principal; 2021-10-27 07:30)
DX: K29.20 Alcoholic gastritis without bleeding (principal); E10.10 Type 1 diabetes mellitus with ketoacidosis without coma; E87.1 Hypo-osmolality and hyponatremia; K86.1 Other chronic pancreatitis; K86.2 Cyst of pancreas; K86.3 Pseudocyst of pancreas; F10.139 Alcohol abuse with withdrawal, unspecified; R10.9 Unspecified abdominal pain; E83.42 Hypomagnesemia; E86.0 Dehydration; E86.1 Hypovolemia; F17.200 Nicotine dependence, unspecified, uncomplicated; E10.40 Type 1 diabetes mellitus with diabetic neuropathy, unspecified; F41.9 Anxiety disorder, unspecified; K29.80 Duodenitis without bleeding; K70.10 Alcoholic hepatitis without ascites; Z79.4 Long term (current) use of insulin; Z79.899 Other long term (current) drug therapy; Z83.3 Family history of diabetes mellitus; Z91.14 Patient's other noncompliance with medication regimen
CPT/HCPCS: 36415; 43239; 74176; 80048; 80051; 80053; 81001; 82009; 82150; 82565; 82947; 83605; 83690; 83735; 84100; 84520; 85025; 85027; 85610; 85730; 88305; 96361; 96365; 96366; 96372; 96375; 99285

== ENCOUNTER 2021-11-17 22:47 | Emergency (ER) | payer OTHER ==
[2021-11-17 23:00] VITALS: TEMP 97.6
[2021-11-18] MEDS ORDERED: ONDANSETRON 4 MG/2 ML VIAL IVP STA (01:57)
[2021-11-18] MEDS ORDERED: SODIUM CHLORIDE 0.9% 1,000 ML IV STA ×2 (01:57)
[2021-11-18] MEDS ORDERED: PANTOPRAZOLE 40 MG/10 ML VIAL IVP STA (01:57)
--- NOTE | 2021-11-18 01:58 | ED ---
Alcohol HPI - General Chief Complaint: GI Bleed Stated Complaint: abd pain Time Seen by Provider: 11/18/21 01:56 Source: patient, family, RN notes reviewed, old records reviewed Mode of arrival: ambulatory Limitations: no limitations - History of Present Illness Initial Comments: This is a 41-year-old male to the emergency department for evaluation of alcohol intoxication. Patient admits to drinking alcohol today. Admits to vomiting for the past 2 days episodically sometimes of blood. No abdominal pain. No prior history of GI bleed. No blood in his stool denies dark tarry stools. Patient currently not actively nauseous, not actively vomiting. Patient again denying abdominal pain. No recent travel history no sick contacts no fevers no other complaints MD Complaint: alcohol intoxication, alcohol withdrawal Last Drink: just UNIFORMER -: hour(s) Previous Visits for Alcohol Intoxication?: Yes Recent Trauma: No Associated Symptoms: nausea, vomiting, abdominal pain, hematemesis Treatments Prior to Arrival: none Chronic Alcohol Use: Yes - Related Data Home Medications Medication Instructions Recorded Confirmed INSULIN LISPRO (HumaLOG) [humaLOG] See Protocol SQ AC-TID PRN 12/30/20 12/14/21 ALPRAZolam [Xanax] 0.25 mg PO HS PRN 07/22/21 12/14/21 Folic Acid 0.4 mg PO DAILY 10/20/21 12/14/21 traZODone HCL 50 mg PO HS PRN 11/21/21 12/14/21 Previous Rx's Medication Instructions Recorded Pantoprazole Sodium [Protonix] 40 mg PO BID #60 tab 10/25/21 Insulin Glargine [Lantus Vial] 20 unit SQ DAILY #0 11/22/21 Thiamine [Vitamin B-1] 100 mg PO BID-W/MEALS 30 Days #60 11/22/21 tab chlordiazePOXIDE HCl [Librium] 25 mg PO QID 3 Days #12 capsule 12/18/21 Allergies Allergy/AdvReac Type Severity Reaction Status Date / Time No Known Allergies Allergy Verified 12/14/21 18:31 Review of Systems ROS Statement: Those systems with pertinent positive or pertinent negative responses have been documented in the HPI. ROS Other: All systems not noted in ROS Statement are negative. Past Medical History Past Medical History: Diabetes Mellitus, GERD/Reflux Additional Past Medical History / Comment(s): IDDM pt states he has been told he is type 1 and told he is type II, neuropathy occasionally in bilateral toes/fingers, DKAs, ETOH abuse, past DT's/seizure 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 Past Psychological History: Anxiety Smoking Status: Current every day smoker, Vaper Past Alcohol Use History: Abuse, Daily, Heavy Past Drug Use History: None Reported - Past Family History Father Family Medical History: Diabetes Mellitus Mother History Unknown: Yes Additional Family Medical History / Comment(s): Pt does not have contact with his mother. General Exam Limitations: no limitations General appearance: alert, in no apparent distress Head exam: Present: atraumatic, normocephalic, normal inspection Eye exam: Present: normal appearance, PERRL, EOMI. Absent: scleral icterus, conjunctival injection, periorbital swelling ENT exam: Present: normal exam, mucous membranes moist Neck exam: Present: normal inspection. Absent: tenderness, meningismus, lymphadenopathy Respiratory exam: Present: normal lung sounds bilaterally. Absent: respiratory distress, wheezes, rales, rhonchi, stridor Cardiovascular Exam: Present: regular rate, normal rhythm, normal heart sounds. Absent: systolic murmur, diastolic murmur, rubs, gallop, clicks GI/Abdominal exam: Present: soft, normal bowel sounds. Absent: distended, tenderness, guarding, rebound, rigid Extremities exam: Present: normal inspection, full ROM, normal capillary refill. Absent: tenderness, pedal edema, joint swelling, calf tenderness Back exam: Present: normal inspection Neurological exam: Present: alert, oriented X3, CN II-XII intact Psychiatric exam: Present: normal affect, normal mood Skin exam: Present: warm, dry, intact, normal color. Absent: rash Course Vital Signs 11/17/21 11/18/21 22:58 03:22 Temperature 97.6 F Pulse Rate 74 60 Respiratory 18 19 Rate Blood Pressure 125/83 103/71 O2 Sat by Pulse 98 98 Oximetry - Reevaluation(s) Reevaluation #1: 11/18/21 Medical record is reviewed Patient symptoms are improved here in the emergency department Patient informed results questions answered Medical Decision Making - Medical Decision Making 41 male who presents to the ER for vomiting states he has been also vomiting some blood. Although currently not lightheaded dizziness or weakness. Lab values are normal here in the ER vital signs are normal here in the ER patient symptoms are resolved and he can be discharged home - Lab Data Result diagrams: 11/18/21 02:20 11/18/21 02:20 Lab Results 11/18/21 11/18/21 11/18/21 Range/Units 02:20 02:20 02:20 WBC 8.1 (3.8-10.6) k/uL RBC 4.73 (4.30-5.90) m/uL Hgb 14.6 (13.0-17.5) gm/dL Hct 44.5 (39.0-53.0) % MCV 94.1 (80.0-100.0) fL MCH 30.8 (25.0-35.0) pg MCHC 32.8 (31.0-37.0) g/dL RDW 12.3 (11.5-15.5) % Plt Count 264 (150-450) k/uL MPV 8.7 Neutrophils % 39 % Lymphocytes % 48 % Monocytes % 4 % Eosinophils % 5 % Basophils % 1 % Neutrophils # 3.2 (1.3-7.7) k/uL Lymphocytes # 3.9 (1.0-4.8) k/uL Monocytes # 0.3 (0-1.0) k/uL Eosinophils # 0.4 (0-0.7) k/uL Basophils # 0.1 (0-0.2) k/uL PT 12.2 H (9.0-12.0) sec INR 1.1 (<1.2) Sodium 138 (137-145) mmol/L Potassium 3.9 (3.5-5.1) mmol/L Chloride 103 (98-107) mmol/L Carbon Dioxide 23 (22-30) mmol/L Anion Gap 12 mmol/L BUN 19 (9-20) mg/dL Creatinine 0.69 (0.66-1.25) mg/dL Est GFR (CKD-EPI)AfAm >90 (>60 ml/min/1.73 sqM) Est GFR (CKD-EPI)NonAf >90 (>60 ml/min/1.73 sqM) Glucose 108 H (74-99) mg/dL Calcium 9.0 (8.4-10.2) mg/dL Phosphorus 3.0 (2.5-4.5) mg/dL Magnesium 1.7 (1.6-2.3) mg/dL Total Bilirubin 1.7 H (0.2-1.3) mg/dL AST 78 H (17-59) U/L ALT 83 H (4-49) U/L Alkaline Phosphatase 85 (38-126) U/L Total Protein 7.0 (6.3-8.2) g/dL Albumin 4.5 (3.5-5.0) g/dL Lipase 39 (23-300) U/L Serum Alcohol 193 mg/dL Disposition Clinical Impression: Nausea and vomiting, Alcohol abuse, Alcoholic intoxication Disposition: HOME SELF-CARE Condition: Good Instructions (If sedation given, give patient instructions): Alcohol Withdrawal (ED) Is patient prescribed a controlled substance at d/c from ED?: No Referrals: None,Stated [Primary Care Provider] - 1-2 days
[2021-11-18 02:41] LABS: Basophils # (A) 0.1 k/uL (0-0.2); Basophils % (A) 1 %; Eosinophils # (A) 0.4 k/uL (0-0.7); Eosinophils % (A) 5 %; HCT 44.5 % (39.0-53.0); HGB 14.6 gm/dL (13.0-17.5); Lymphocytes # (A) 3.9 k/uL (1.0-4.8); Lymphocytes % (A) 48 %; MCH 30.8 pg (25.0-35.0); MCHC 32.8 g/dL (31.0-37.0); MCV 94.1 fL (80.0-100.0); Mean Platelet Volume 8.7; Monocytes # (A) 0.3 k/uL (0-1.0); Monocytes % (A) 4 %; Neutrophils # (A) 3.2 k/uL (1.3-7.7); Neutrophils % (A) 39 %; Platelet Count 264 k/uL (150-450); RBC 4.73 m/uL (4.30-5.90); RDW 12.3 % (11.5-15.5); WBC 8.1 k/uL (3.8-10.6)
[2021-11-18 02:46] LABS: INR 1.1 (<1.2); Prothrombin Time 12.2 sec (9.0-12.0)
[2021-11-18 03:00] LABS: ALT 83 U/L (4-49); AST 78 U/L (17-59); African American GFR (CKD) >90 (>60 ml/min/1.73 sqM); Albumin 4.5 g/dL (3.5-5.0); Alkaline Phosphatase 85 U/L (38-126); Anion Gap 12 mmol/L; Blood Urea Nitrogen 19 mg/dL (9-20); Carbon Dioxide 23 mmol/L (22-30); Chloride 103 mmol/L (98-107); Glucose 108 mg/dL (74-99); Lipase 39 U/L (23-300); Magnesium 1.7 mg/dL (1.6-2.3); Non-African American GFR(CKD) >90 (>60 ml/min/1.73 sqM); Potassium 3.9 mmol/L (3.5-5.1); Sodium 138 mmol/L (137-145); Total Bilirubin 1.7 mg/dL (0.2-1.3)
[2021-11-18 03:06] LABS: Alcohol 193 mg/dL
[2021-11-18 03:25] VITALS: BP 103/71; PULSE 60; RESP 19
[2021-11-18] MEDS ORDERED: MAGNESIUM OXIDE 400 MG TAB PO STA (03:41)
[2021-11-18] MEDS ORDERED: ONDANSETRON 4 MG ODT STARTER PACK 2 TAB BTL PO STA (03:41)
[2021-11-18] MEDS ORDERED: diazePAM 5 MG TAB PO STA (03:41)
[2021-11-18] MEDS ORDERED: POTASSIUM BICARBONATE/CIT AC 20 MEQ TABLET.EFF PO ONE (04:00)
[2021-11-18] MEDS ORDERED: cloNIDine 0.1 MG/24HR PATCH TRANSDERM ONE (04:00)
== END 2021-11-18 04:20 | disposition home or self-care (01) ==
LOC: EC 22:47
DX: F10.129 Alcohol abuse with intoxication, unspecified (principal); F17.290 Nicotine dependence, other tobacco product, uncomplicated; E11.9 Type 2 diabetes mellitus without complications; Y90.6 Blood alcohol level of 120-199 mg/100 ml
CPT/HCPCS: 36415; 80053; 83690; 83735; 84100; 85025; 85610; 99284; 96374; 96375; G0480; J2405; S0119; C9113; 80320

== ENCOUNTER 2021-11-19 15:48 | Inpatient (IN) | payer OTHER ==
[2021-11-19] MEDS ORDERED: PANTOPRAZOLE 40 MG/10 ML VIAL IVP STA (16:35)
[2021-11-19] MEDS ORDERED: METOCLOPRAMIDE 5 MG/ML 2 ML VIAL IVP STA (16:35)
[2021-11-19] MEDS ORDERED: diphenhydrAMINE 50 MG/ML 1 ML VIAL IVP STA (16:35)
[2021-11-19] MEDS ORDERED: SODIUM CHLORIDE 0.9% 1,000 ML IV STA ×2 (16:35→17:46)
[2021-11-19 17:25] LABS: Basophils # (A) 0.1 k/uL (0-0.2); Basophils % (A) 2 %; Eosinophils # (A) 0.3 k/uL (0-0.7); Eosinophils % (A) 7 %; HCT 48.4 % (39.0-53.0); HGB 16.1 gm/dL (13.0-17.5); Lymphocytes # (A) 1.1 k/uL (1.0-4.8); Lymphocytes % (A) 25 %; MCH 31.9 pg (25.0-35.0); MCHC 33.3 g/dL (31.0-37.0); MCV 95.6 fL (80.0-100.0); Mean Platelet Volume 8.3; Monocytes # (A) 0.2 k/uL (0-1.0); Monocytes % (A) 5 %; Neutrophils # (A) 2.7 k/uL (1.3-7.7); Neutrophils % (A) 59 %; Platelet Count 213 k/uL (150-450); RBC 5.06 m/uL (4.30-5.90); RDW 12.1 % (11.5-15.5); WBC 4.5 k/uL (3.8-10.6)
[2021-11-19] MEDS ORDERED: THIAMINE 100 MG TAB PO SCH (17:30)
[2021-11-19 17:32] LABS: Appearance,Urine Clear (Clear); Bilirubin,Urine Negative (Negative); Blood,Urine Negative (Negative); Color,Urine Colorless; Glucose,Urine (UA) 4+ (Negative); Ketones,Urine Negative (Negative); Leukocyte Esterase,Urine Negative (Negative); Nitrite,Urine Negative (Negative); PH, Urine 6.5 (5.0-8.0); Protein,Urine Negative (Negative); Specific Gravity,Urine 1.027 (1.001-1.035); Urobilinogen,Urine <2.0 mg/dL (<2.0)
[2021-11-19 17:33] LABS: INR 1.1 (<1.2); Partial Thromboplastin Time 25.4 sec (22.0-30.0); Prothrombin Time 11.4 sec (9.0-12.0)
[2021-11-19 17:36] LABS: ALT 212 U/L (4-49); AST 230 U/L (17-59); African American GFR (CKD) >90 (>60 ml/min/1.73 sqM); Albumin 4.9 g/dL (3.5-5.0); Alcohol <10 mg/dL; Alkaline Phosphatase 161 U/L (38-126); Amylase 46 U/L (30-110); Anion Gap 9 mmol/L; Blood Urea Nitrogen 26 mg/dL (9-20); Calcium 9.9 mg/dL (8.4-10.2); Carbon Dioxide 30 mmol/L (22-30); Chloride 88 mmol/L (98-107); Lipase 47 U/L (23-300); Non-African American GFR(CKD) 81 (>60 ml/min/1.73 sqM); Sodium 127 mmol/L (137-145); Total Bilirubin 2.6 mg/dL (0.2-1.3); Total Protein 7.3 g/dL (6.3-8.2)
[2021-11-19] MEDS ORDERED: LORazepam 2 MG/ML INJ IV STA (17:40)
[2021-11-19 17:43] LABS: Glucose 669 mg/dL (74-99)
--- NOTE | 2021-11-19 17:43 | XR ---
EXAMINATION TYPE: XR KUB DATE OF EXAM: 11/19/2021 5:14 PM INDICATION: Patient age:Male; 41 years old; Reason for study: abdominal pain; COMPARISON: None. TECHNIQUE: One radiographic view of the abdomen was obtained. FINDINGS: The bowel gas pattern is nonspecific without dilated loops of small or large bowel. There is no evide nce for organomegaly or pneumoperitoneum. The osseous structures are intact. No abnormal calcificat ions are present. Fecal material and gas are demonstrated throughout the colon and rectum. Mild dege nerative changes of the hips with osteophyte formation. IMPRESSION: Nonspecific bowel gas pattern without radiographic evidence for acute process.
[2021-11-19] MEDS ORDERED: LORazepam 2 MG/ML INJ IV PRN ×2 (18:46)
[2021-11-19] MEDS ORDERED: THIAMINE 100 MG/ML 2 ML VIAL IM STA (18:46)
[2021-11-19] MEDS ORDERED: NALOXONE 0.4 MG/ML 1 ML VIAL IV PRN (18:57)
[2021-11-19] MEDS ORDERED: ONDANSETRON 4 MG/2 ML VIAL IVP PRN (18:57)
[2021-11-19 19:54] LABS: Glucose,Whole Blood 344 mg/dL (75-99)
[2021-11-19] MEDS: SODIUM CHLORIDE 0.9% 1,000 ML IV SCH (20:00)
[2021-11-19] MEDS: LORazepam 2 MG/ML INJ IV PRN (20:01)
[2021-11-19] MEDS ORDERED: PANTOPRAZOLE 40 MG TABLET PO SCH (21:00)
--- NOTE | 2021-11-19 21:38 | ED ---
General Adult HPI - General Chief complaint: Alcohol Stated complaint: Diabetic issues,ETOH withdrawal Time Seen by Provider: 11/19/21 16:11 Source: patient, RN notes reviewed, old records reviewed Mode of arrival: ambulatory Limitations: no limitations - History of Present Illness Initial comments: Patient is a 41-year-old male with past History remarkable for diabetes, nausea, vomiting, alcohol abuse with withdrawals and delirium tremens who presents emergency Department complaining of alcohol withdrawals as well as nausea and vomiting. He is also having epigastric abdominal pain. He is been seen multiple times and this seems to department for similar complaints. Does have a history of chronic pancreatitis. Is having multiple episodes of nonbilious nonbloody emesis. Denies any diarrhea or constipation. Denies any chest pain or shortness of breath. Does endorse tremors as well as anxiety. He believes he is going through alcohol withdrawals. He stopped drinking this morning at 5 AM. Is uncertain what his last sugar was. Presents for further evaluation. Denies any fevers, chills, cough. - Related Data Home Medications Medication Instructions Recorded Confirmed INSULIN LISPRO (HumaLOG) [humaLOG] See Protocol SQ AC-TID 12/30/20 11/19/21 ALPRAZolam [Xanax] 0.25 mg PO DIRECTED PRN 07/22/21 11/19/21 Folic Acid 0.4 mg PO DAILY 10/20/21 11/19/21 Insulin Glargine [Lantus Vial] 20 - 25 unit SQ DAILY 11/19/21 11/19/21 diazePAM [Valium] 5 mg PO DIRECTED PRN 11/19/21 11/19/21 Previous Rx's Medication Instructions Recorded Pantoprazole Sodium [Protonix] 40 mg PO BID #60 tab 10/25/21 Allergies Allergy/AdvReac Type Severity Reaction Status Date / Time No Known Allergies Allergy Verified 11/19/21 15:59 Review of Systems ROS Statement: Those systems with pertinent positive or pertinent negative responses have been documented in the HPI. Review of Systems: CONST: Denies fever EYES: Denies blurry vision ENT: Denies nasal congestion C/V: Denies Chest pain RESP: Denies shortness of breath GI: Endorses epigastric abdominal pain. : Denies dysuria SKIN: Denies rash. MSK: Denies joint pain. NEURO: Denies headache ROS Other: All systems not noted in ROS Statement are negative. Past Medical History Past Medical History: Diabetes Mellitus, GERD/Reflux Additional Past Medical History / Comment(s): IDDM pt states he has been told he is type 1 and told he is type II, neuropathy occasionally in bilateral toes/fingers, DKAs, ETOH abuse, past DT's/seizure 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 Past Psychological History: Anxiety Smoking Status: Current every day smoker, Vaper Past Alcohol Use History: Abuse, Daily, Heavy Past Drug Use History: None Reported - Past Family History Father Family Medical History: Diabetes Mellitus Mother History Unknown: Yes Additional Family Medical History / Comment(s): Pt does not have contact with his mother. General Exam - General Exam Comments Initial Comments: General: Appears in mild distress secondary to withdrawal symptoms and nausea. HEAD: Normal with no signs of head trauma. EYES: PERRLA, EOMI, conjunctiva normal, no discharge. ENT: Hearing grossly intact, normal oropharynx. Dry mucous membranes. RESPIRATORY: Clear breath sounds bilaterally. No wheezes, rales, or rhonchi. C/V: Regular rate and rhythm. S1 and S2 auscultated, no edema, peripheral pulses 2+ and intact throughout ABD: Abdomen is soft, nondistended. Patient is tender to palpation in the epigastric region. No guarding. No peritoneal signs. No rebound tenderness. EXT: Normal range of motion, no obvious deformity SKIN: No rashes or lesions observed on exposed skin. NEURO: Alert and oriented 4. No focal sensory strength deficits. Patient does have tremors of the tongue as well as hands. Limitations: no limitations Course Vital Signs 11/19/21 11/19/21 11/19/21 15:59 18:00 21:10 Temperature 98.3 F 98.9 F Pulse Rate 90 67 60 Respiratory 18 18 18 Rate Blood Pressure 120/85 111/66 105/68 O2 Sat by Pulse 98 96 99 Oximetry Procedures - [place] Protocol (Time Out) Nurse: Stephanie Reeder Medical Decision Making - Medical Decision Making Based on the patient's presentation and physical exam, does appear is going through mild alcohol withdrawals. I'm also concerned for possible intra- abdominal process for his current symptoms, however it does appear to be his chronic hepatitis versus gastritis. We will obtain abdominal laboratory studies. Patient will be symptomatically treated with Ativan, GI cocktail, IV fluids. [facility] protocol is ordered. Patient was in agreement this plan. Screening EKG was obtained and revealed no acute ischemic process. Laboratory studies are remarkable for a hyperglycemia 669, a hyponatremia of 127 and hypochloremia of 88. Patient has mildly elevated LFTs of 230 and 212 as well as alk phos of 161. Urinalysis shows 4+ glucose. Serum alcohol level is undetectable. KUB x-ray reveals no acute intra-abdominal process. On reevaluation, patient still complaining of nausea and tremors. He will be admitted at this time due to his dehydration and hyperglycemia. He is not in DKA. Patient was in agreement with this plan. I spoke with the admitting team under MLP Melia of [facility] accepted the patient. Patient was admitted in stable condition. On multiple fluid boluses, patient's blood sugar is 300. We'll continue IV fluids at this time. Insulin was ordered. - Lab Data Result diagrams: 11/19/21 16:41 11/19/21 16:41 Lab Results 11/19/21 11/19/21 11/19/21 Range/Units 16:41 16:41 16:41 WBC 4.5 (3.8-10.6) k/uL RBC 5.06 (4.30-5.90) m/uL Hgb 16.1 (13.0-17.5) gm/dL Hct 48.4 (39.0-53.0) % MCV 95.6 (80.0-100.0) fL MCH 31.9 (25.0-35.0) pg MCHC 33.3 (31.0-37.0) g/dL RDW 12.1 (11.5-15.5) % Plt Count 213 (150-450) k/uL MPV 8.3 Neutrophils % 59 % Lymphocytes % 25 % Monocytes % 5 % Eosinophils % 7 % Basophils % 2 % Neutrophils # 2.7 (1.3-7.7) k/uL Lymphocytes # 1.1 (1.0-4.8) k/uL Monocytes # 0.2 (0-1.0) k/uL Eosinophils # 0.3 (0-0.7) k/uL Basophils # 0.1 (0-0.2) k/uL PT 11.4 (9.0-12.0) sec INR 1.1 (<1.2) APTT 25.4 (22.0-30.0) sec Sodium (137-145) mmol/L Potassium (3.5-5.1) mmol/L Chloride (98-107) mmol/L Carbon Dioxide (22-30) mmol/L Anion Gap mmol/L BUN (9-20) mg/dL Creatinine (0.66-1.25) mg/dL Est GFR (CKD-EPI)AfAm (>60 ml/min/1.73 sqM) Est GFR (CKD-EPI)NonAf (>60 ml/min/1.73 sqM) Glucose (74-99) mg/dL Calcium (8.4-10.2) mg/dL Total Bilirubin (0.2-1.3) mg/dL AST (17-59) U/L ALT (4-49) U/L Alkaline Phosphatase (38-126) U/L Total Protein (6.3-8.2) g/dL Albumin (3.5-5.0) g/dL Amylase (30-110) U/L Lipase (23-300) U/L Urine Color Colorless Urine Appearance Clear (Clear) Urine pH 6.5 (5.0-8.0) Ur Specific [place] 1.027 (1.001-1.035) Urine Protein Negative (Negative) Urine Glucose (UA) 4+ H (Negative) Urine Ketones Negative (Negative) Urine Blood Negative (Negative) Urine Nitrite Negative (Negative) Urine Bilirubin Negative (Negative) Urine Urobilinogen <2.0 (<2.0) mg/dL Ur Leukocyte Esterase Negative (Negative) Serum Alcohol mg/dL 11/19/21 Range/Units 16:41 WBC (3.8-10.6) k/uL RBC (4.30-5.90) m/uL Hgb (13.0-17.5) gm/dL Hct (39.0-53.0) % MCV (80.0-100.0) fL MCH (25.0-35.0) pg MCHC (31.0-37.0) g/dL RDW (11.5-15.5) % Plt Count (150-450) k/uL MPV Neutrophils % % Lymphocytes % % Monocytes % % Eosinophils % % Basophils % % Neutrophils # (1.3-7.7) k/uL Lymphocytes # (1.0-4.8) k/uL Monocytes # (0-1.0) k/uL Eosinophils # (0-0.7) k/uL Basophils # (0-0.2) k/uL PT (9.0-12.0) sec INR (<1.2) APTT (22.0-30.0) sec Sodium 127 L (137-145) mmol/L Potassium 5.0 (3.5-5.1) mmol/L Chloride 88 L (98-107) mmol/L Carbon Dioxide 30 (22-30) mmol/L Anion Gap 9 mmol/L BUN 26 H (9-20) mg/dL Creatinine 1.14 (0.66-1.25) mg/dL Est GFR (CKD-EPI)AfAm >90 (>60 ml/min/1.73 sqM) Est GFR (CKD-EPI)NonAf 81 (>60 ml/min/1.73 sqM) Glucose 669 H* (74-99) mg/dL Calcium 9.9 (8.4-10.2) mg/dL Total Bilirubin 2.6 H (0.2-1.3) mg/dL AST 230 H (17-59) U/L ALT 212 H (4-49) U/L Alkaline Phosphatase 161 H (38-126) U/L Total Protein 7.3 (6.3-8.2) g/dL Albumin 4.9 (3.5-5.0) g/dL Amylase 46 (30-110) U/L Lipase 47 (23-300) U/L Urine Color Urine Appearance (Clear) Urine pH (5.0-8.0) Ur Specific [place] (1.001-1.035) Urine Protein (Negative) Urine Glucose (UA) (Negative) Urine Ketones (Negative) Urine Blood (Negative) Urine Nitrite (Negative) Urine Bilirubin (Negative) Urine Urobilinogen (<2.0) mg/dL Ur Leukocyte Esterase (Negative) Serum Alcohol <10 mg/dL - EKG Data -: EKG Interpreted by Me EKG Comments: 12-lead Electrocardiogram Interpretation Note EKG was reviewed and interpreted by myself. 12-lead ECG performed at 1644 is interpreted by me as revealing normal sinus rhythm at a rate of 78 beats per minute. [place] is normal. [place] interval is 124 ms, QRS duration is 84 ms, QTc is 409 ms.. There were no ST or T wave abnormalities to suggest myocardial ische [place] or injury. There is chronic J-point elevation seen on prior EKGs. R wave progression across the precordium was satisfactory. By my interpretation this EKG is non-diagnostic for acute ischemia. EKG is unchanged from prior EKGs. Disposition Clinical Impression: Alcohol withdrawal, Nausea and vomiting, Dehydration, Uncontrolled diabetes donn litus, Hyperglycemia Disposition: ADMITTED IP TO THIS HOSP Condition: Stable
[2021-11-19 22:38] LABS: Glucose,Whole Blood 266 mg/dL (75-99)
[2021-11-19] MEDS: HEPARIN SODIUM,PORCINE/PF 5,000 UNIT/0.5 ML SYRINGE SQ SCH (23:31)
[2021-11-19] MEDS: HYDROmorphone 1 MG/ML 1 ML SYRINGE IVP PRN (23:31)
--- NOTE | 2021-11-20 00:40 | US ---
EXAMINATION TYPE: US gallbladder DATE OF EXAM: 11/19/2021 COMPARISON: CT 10/25/21 CLINICAL HISTORY: abd pain. Hx chronic pancreatitis, ETOH withdrawal, DKA, hyperglycemia. Patient is experiencing abdominal pain. EXAM MEASUREMENTS: Liver Length: 19.5 cm Gallbladder Wall: 0.27 cm CBD: 0.45 cm Right Kidney: 13.0 x 4.3 x 5.6 cm Pancreas: Cystic area pancreatic tail measuring 4.5 x 5.5 x 4.3 cm Liver: Hepatomegaly Gallbladder: appears wnl Evidence for sonographic Arias's sign: no CBD: wnl Right Kidney: No hydronephrosis or masses seen IMPRESSION: There is a cyst in the tail of the pancreas also present on the old CT scan of 10/25/2021 and consisten t with pseudocyst. No gallstones or dilated ducts.
[2021-11-20] MEDS: HYDROmorphone 1 MG/ML 1 ML SYRINGE IVP PRN ×4 (03:38→20:15)
[2021-11-20] MEDS: LORazepam 2 MG/ML INJ IV PRN ×3 (07:22→22:27)
[2021-11-20 07:33] LABS: Glucose,Whole Blood 209 mg/dL (75-99)
[2021-11-20 07:50] LABS: Glucose,Whole Blood 196 mg/dL (75-99)
[2021-11-20 08:45] LABS: Basophils # (A) 0.05 X 10*3/uL (0.00-0.10); Basophils % (A) 0.9 %; Eosinophils # (A) 0.86 X 10*3/uL (0.04-0.35); Eosinophils % (A) 15.7 %; HCT 42.5 % (39.6-50.0); HGB 14.7 g/dL (13.0-17.0); Immature Grans, Automated 0 %; Lymphocytes # (A) 2.56 X 10*3/uL (0.90-5.00); Lymphocytes % (A) 46.7 %; MCH 31.2 pg (27.0-32.0); MCHC 34.6 g/dL (32.0-37.0); MCV 90.2 fL (80.0-97.0); Mean Platelet Volume 11.2 fL (9.5-12.2); Monocytes # (A) 0.37 X 10*3/uL (0.20-1.00); Monocytes % (A) 6.8 %; NRBC Per 100 WBC 0 /100 WBCS (0.0-0.0); Neutrophils # (A) 1.64 X 10*3/uL (1.80-7.70); Neutrophils % (A) 29.9 %; Platelet Count 204 X 10*3/uL (140-440); RBC 4.71 X 10*6/uL (4.40-5.60); WBC 5.48 X 10*3/uL (4.50-10.00)
[2021-11-20] MEDS: PANTOPRAZOLE 40 MG/10 ML VIAL IVP SCH ×2 (08:59→20:10)
[2021-11-20] MEDS: HEPARIN SODIUM,PORCINE/PF 5,000 UNIT/0.5 ML SYRINGE SQ SCH ×3 (09:00→23:35)
[2021-11-20] MEDS ORDERED: INSULIN DETEMIR (LEVEMIR) 100 UNIT/ML SYR SQ SCH (09:00)
[2021-11-20] MEDS: THIAMINE 100 MG TAB PO SCH ×2 (09:16→17:27)
[2021-11-20 09:47] LABS: African American GFR (CKD) 124.3 (60.0-200.0); Albumin 4.2 g/dL (3.8-4.9); Albumin/Globulin Ratio 2.8 (1.60-3.17); Anion Gap 10.8 mmol/L (10.00-18.00); BUN/Creat Ratio 21.44 Ratio (12.00-20.00); Blood Urea Nitrogen 19.3 mg/dL (9.0-27.0); Carbon Dioxide 26.2 mmol/L (20.0-27.5); Globulin 1.5 g/dL (1.6-3.3); Non-African American GFR(CKD) 107.2 (60.0-200.0); Potassium 3.9 mmol/L (3.5-5.5); Total Bilirubin 3.3 mg/dL (0.30-1.20); Total Protein 5.7 g/dL (6.2-8.2)
[2021-11-20] MEDS: INSULIN ASPART (NovoLOG) 100 UNIT/ML VIAL SQ SCH ×3 (10:17→17:27)
[2021-11-20] MEDS: SODIUM CHLORIDE 0.9% 1,000 ML IV SCH ×3 (10:20→23:51)
[2021-11-20 11:06] LABS: Glucose,Whole Blood 201 mg/dL (75-99)
--- NOTE | 2021-11-20 12:03 | P.HPIM ---
History of Present Illness Patient is a 41-year-old male came with nausea vomiting or abdominal pain severe abdominal pain burning sensation. Patient does have history of chronic hepatitis. Patient has nonbilious vomiting. Patient lipase is only 89. Patie nt had an ultrasound of the abdomen because of significantly elevated liver enzymes ALT more than AST which showed a cyst of around of 5.5 X 4.5 cm without any evidence of gallstones. Patient is Fever chills. Patient has bilious vomiting which started yesterday. Patient does have alcohol use history, drinks about half a gallon of 40 on daily basis last drink was yesterday morning. REVIEW OF SYSTEMS: CONSTITUTIONAL: No fever, no malaise, no fatigue. HEENT: No recent visual problems or hearing problems. Denied any sore throat. CARDIOVASCULAR: No chest pain, orthopnea, PND, no palpitations, no syncope. PULMONARY: No shortness of breath, no cough, no hemoptysis. GASTROINTESTINAL: No diarrhea. NEUROLOGICAL: No headaches, no weakness, no numbness. HEMATOLOGICAL: Denies any bleeding or petechiae. GENITOURINARY: Denies any burning micturition, frequency, or urgency. MUSCULOSKELETAL/RHEUMATOLOGICAL: Denies any joint pain, swelling, or any muscle pain. ENDOCRINE: Denies any polyuria or polydipsia. The rest of the 14-point review of systems is negative. PHYSICAL EXAMINATION: GENERAL: The patient is alert and oriented x3, not in any acute distress. Well developed, well nourished. HEENT: Pupils are round and equally reacting to light. EOMI. No scleral icterus. No conjunctival pallor. Normocephalic, atraumatic. No pharyngeal erythema. No thyromegaly. CARDIOVASCULAR: S1 and S2 present. No murmurs, rubs, or gallops. PULMONARY: Chest is clear to auscultation, no wheezing or crackles. ABDOMEN: Soft, tenderness in the epigastric area nondistended, normoactive bowel sounds. No palpable organomegaly. MUSCULOSKELETAL: No joint swelling or deformity. EXTREMITIES: No cyanosis, clubbing, or pedal edema. NEUROLOGICAL: Gross neurological examination did not reveal any focal deficits. SKIN: No rashes. Assessment and plan -Epigastric abdominal pain: Most probably secondary to alcoholic gastritis continue with Protonix patient will be started on clear liquid diet advance as tolerated. Patient does have a a cyst in the tail of pancreas, probably not contributing to his pain. There is no evidence of acute pancreatitis at this time -Diabetes mellitus type 1 most probably secondary to pancreatic insufficiency from chronic pancreatitis. We'll cut down the dose of long-acting insulin because of the patient's diet. Patient was hyperglycemic on admission. Blood sugars have come down now presently nothing by mouth patient will be started on clear liquid diet advance as tolerated -Transaminitis: Secondary to chronic liver disease with a superimposed acute a lcoholic hepatitis. -Nicotine use: Counseling was provided -Alcohol abuse: Counseling was provided -Alcohol withdrawal patient will be monitored continue with Ativan CIWA protocol DVT prophylaxis: Subcutaneous heparin Past Medical History Past Medical History: Diabetes Mellitus, GERD/Reflux Additional Past Medical History / Comment(s): IDDM pt states he has been told he is type 1 and told he is type II, neuropathy occasionally in bilateral toes/fingers, DKAs, ETOH abuse, past DT's/seizure 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 Past Psychological History: Anxiety Additional Psychological History / Comment(s): Pt resides with his girlfriend. He has a glucometer. Smoking Status: Current every day smoker, Vaper Past Alcohol Use History: Abuse, Daily, Heavy Additional Past Alcohol Use History / Comment(s): Pt started smoking in 1995 and smokes approximately 2 cigarettes a day. He states he vapes daily as well. Pt states he drinks between 1/5 and 1/2 gallon of vodka daily. States last drink was 5am this morning. He's been detoxing at home and tapering off his drinking so he doesn't have a seizure. Past Drug Use History: None Reported - Past Family History Father Family Medical History: Diabetes Mellitus Mother History Unknown: Yes Additional Family Medical History / Comment(s): Pt does not have contact with his mother. Medications and Allergies Home Medications Medication Instructions Recorded Confirmed Type INSULIN LISPRO (HumaLOG) [humaLOG] See Protocol SQ AC-TID 12/30/20 11/19/21 History ALPRAZolam [Xanax] 0.25 mg PO DIRECTED PRN 07/22/21 11/19/21 History Folic Acid 0.4 mg PO DAILY 10/20/21 11/19/21 History Pantoprazole Sodium [Protonix] 40 mg PO BID #60 tab 10/25/21 11/19/21 Rx Insulin Glargine [Lantus Vial] 20 - 25 unit SQ DAILY 11/19/21 11/19/21 History diazePAM [Valium] 5 mg PO DIRECTED PRN 11/19/21 11/19/21 History Allergies Allergy/AdvReac Type Severity Reaction Status Date / Time No Known Allergies Allergy Verified 11/19/21 15:59 Physical Exam Vitals: Vital Signs Temp Pulse Pulse Pulse Resp BP BP 11/20/21 07:56 97.7 F 65 16 122/78 11/20/21 01:34 97.8 F 59 L 16 115/72 11/19/21 23:00 17 11/19/21 22:38 97.0 F L 57 L 17 134/89 11/19/21 21:10 60 18 105/68 11/19/21 18:00 98.9 F 67 18 111/66 11/19/21 15:59 98.3 F 90 18 120/85 Pulse Ox 11/20/21 07:56 99 11/20/21 01:34 99 11/19/21 23:00 11/19/21 22:38 99 11/19/21 21:10 99 11/19/21 18:00 96 11/19/21 15:59 98 Intake and Output 11/19/21 11/20/21 11/20/21 22:59 06:59 14:59 Other: Voiding Method Toilet Toilet # Voids 2 # Bowel Movements 1 Weight 74.843 kg 74.843 kg Results CBC & Chem 7: 11/20/21 04:40 11/20/21 04:40 Labs: Abnormal Lab Results - Last 24 Hours (Table) 11/19/21 11/19/21 11/19/21 Range/Units 16:41 16:41 19:50 Neutrophils # (1.80-7.70) X 10*3/uL Eosinophils # (0.04-0.35) X 10*3/uL Sodium 127 L (137-145) mmol/L Chloride 88 L (98-107) mmol/L BUN 26 H (9-20) mg/dL BUN/Creatinine Ratio (12.00-20.00) Ratio Glucose 669 H* (74-99) mg/dL POC Glucose (mg/dL) 344 H (75-99) mg/dL Total Bilirubin 2.6 H (0.2-1.3) mg/dL AST 230 H (17-59) U/L ALT 212 H (4-49) U/L Alkaline Phosphatase 161 H (38-126) U/L Total Protein (6.2-8.2) g/dL Globulin (1.6-3.3) g/dL Urine Glucose (UA) 4+ H (Negative) 11/19/21 11/20/21 11/20/21 Range/Units 22:36 04:40 04:40 Neutrophils # 1.64 L (1.80-7.70) X 10*3/uL Eosinophils # 0.86 H (0.04-0.35) X 10*3/uL Sodium (137-145) mmol/L Chloride (98-107) mmol/L BUN (9-20) mg/dL BUN/Creatinine Ratio 21.44 H (12.00-20.00) Ratio Glucose 232 H (74-99) mg/dL POC Glucose (mg/dL) 266 H (75-99) mg/dL Total Bilirubin 3.30 H (0.2-1.3) mg/dL AST 130 H (17-59) U/L ALT 165 H (4-49) U/L Alkaline Phosphatase (38-126) U/L Total Protein 5.7 L (6.2-8.2) g/dL Globulin 1.5 L (1.6-3.3) g/dL Urine Glucose (UA) (Negative) 11/20/21 11/20/21 11/20/21 Range/Units 07:30 07:48 11:04 Neutrophils # (1.80-7.70) X 10*3/uL Eosinophils # (0.04-0.35) X 10*3/uL Sodium (137-145) mmol/L Chloride (98-107) mmol/L BUN (9-20) mg/dL BUN/Creatinine Ratio (12.00-20.00) Ratio Glucose (74-99) mg/dL POC Glucose (mg/dL) 209 H 196 H 201 H (75-99) mg/dL Total Bilirubin (0.2-1.3) mg/dL AST (17-59) U/L ALT (4-49) U/L Alkaline Phosphatase (38-126) U/L Total Protein (6.2-8.2) g/dL Globulin (1.6-3.3) g/dL Urine Glucose (UA) (Negative) Thrombosis Risk Factor Assmnt - Choose All That Apply Any of the Below Risk Factors Present?: No Other Risk Factors: No Other congenital or acquired thrombophilia - If yes, enter type in comment: No Thrombosis Risk Factor Assessment Level: Very Low Risk
[2021-11-20 16:41] LABS: Glucose,Whole Blood 188 mg/dL (75-99)
[2021-11-21] MEDS: HYDROmorphone 1 MG/ML 1 ML SYRINGE IVP PRN ×3 (02:15→12:04)
[2021-11-21 06:56] LABS: Glucose,Whole Blood 315 mg/dL (75-99)
[2021-11-21] MEDS: PANTOPRAZOLE 40 MG/10 ML VIAL IVP SCH ×2 (07:47→21:01)
[2021-11-21] MEDS: THIAMINE 100 MG TAB PO SCH ×2 (07:47→15:27)
[2021-11-21] MEDS: HEPARIN SODIUM,PORCINE/PF 5,000 UNIT/0.5 ML SYRINGE SQ SCH ×3 (07:47→23:19)
[2021-11-21] MEDS: LORazepam 2 MG/ML INJ IV PRN ×5 (07:48→21:01)
[2021-11-21] MEDS: INSULIN ASPART (NovoLOG) 100 UNIT/ML VIAL SQ SCH ×4 (07:49→21:35)
[2021-11-21] MEDS: SODIUM CHLORIDE 0.9% 1,000 ML IV SCH ×2 (07:50→21:21)
[2021-11-21] MEDS ORDERED: INSULIN DETEMIR (LEVEMIR) 100 UNIT/ML SYR SQ SCH (09:00)
[2021-11-21 10:19] LABS: African American GFR (CKD) 122.6 (60.0-200.0); Albumin 3.7 g/dL (3.8-4.9); Albumin/Globulin Ratio 2.49 (1.60-3.17); Anion Gap 9.1 mmol/L (10.00-18.00); BUN/Creat Ratio 16.59 Ratio (12.00-20.00); Blood Urea Nitrogen 15.1 mg/dL (9.0-27.0); Calcium 8.8 mg/dL (8.7-10.3); Carbon Dioxide 24.2 mmol/L (20.0-27.5); Globulin 1.5 g/dL (1.6-3.3); Non-African American GFR(CKD) 105.8 (60.0-200.0); Potassium 4.6 mmol/L (3.5-5.5); Total Bilirubin 2.9 mg/dL (0.30-1.20); Total Protein 5.2 g/dL (6.2-8.2)
[2021-11-21 11:24] LABS: Glucose,Whole Blood 257 mg/dL (75-99)
--- NOTE | 2021-11-21 13:52 | P.PN ---
Subjective Patient is a 41-year-old male came with nausea vomiting or abdominal pain severe abdominal pain burning sensation. Patient does have history of chronic hepatitis. Patient has nonbilious vomiting. Patient lipase is only 89. Patient had an ultrasound of the abdomen because of significantly elevated liver enzymes ALT more than AST which showed a cyst of around of 5.5 X 4.5 cm without any evidence of gallstones. Patient is Fever chills. Patient has bilious vomiting which started yesterday. Patient does have alcohol use history, drinks about half a gallon of 40 on daily basis last drink was yesterday morning. Patient's abdominal pain is better for this can you Dilaudid patient will be continued on oral [place]. Patient has chronic pancreatitis and the pain related to that patient blood sugars are better but the not well-controlled reacting to increasing the dose to 20 unitsn which she takes at home. Patient is receiving Ativan every 2 hours patient will be started on scheduled Librium possibility of discharge tomorrow. Patient is bit hyponatremic continue with IV normal saline. We'll cut down the dose of IV normal saline. Constitutional: Denied any fatigue denied any fever. Cardio vascular: denied any chest pain, palpitations Gastrointestinal denied any nausea vomiting Pulmonary: Denied any shortness of breath cough Neurologic denied any new focal deficits All inpatient medications were reviewed and appropriate changes in these medications as dictated in the interval history and assessment and plan. PHYSICAL EXAMINATION: GENERAL: The patient is alert and oriented x3, not in any acute distress. Well developed, well nourished. HEENT: Pupils are round and equally reacting to light. EOMI. No scleral icterus. No conjunctival pallor. Normocephalic, atraumatic. No pharyngeal erythema. No thyromegaly. CARDIOVASCULAR: S1 and S2 present. No murmurs, rubs, or gallops. PULMONARY: Chest is clear to auscultation, no wheezing or crackles. ABDOMEN: Soft, tenderness in the epigastric area nondistended, normoactive bowel sounds. No palpable organomegaly. MUSCULOSKELETAL: No joint swelling or deformity. EXTREMITIES: No cyanosis, clubbing, or pedal edema. NEUROLOGICAL: Gross neurological examination did not reveal any focal deficits. SKIN: No rashes. Assessment and plan -Epigastric abdominal pain: Most probably secondary to alcoholic gastritis continue with Protonix Patient does have a a cyst in the tail of pancreas, probably not contributing to his pain. There is no evidence of acute pancreatitis at this time -Diabetes mellitus type 1 most probably secondary to pancreatic insufficiency from chronic pancreatitis. We'll cut down the dose of long-acting insulin because of the patient's diet. Patient was hyperglycemic on admission. -Transaminitis: Secondary to chronic liver disease with a superimposed acute alcoholic hepatitis. -Nicotine use: Counseling was provided -Alcohol abuse: Counseling was provided -Alcohol withdrawal [facility]: Subcutaneous heparin Objective - Vital Signs Vital signs: Vital Signs Temp 97.8 F 11/21/21 07:05 Pulse 63 11/21/21 07:05 Resp 17 11/21/21 07:05 BP 132/87 11/21/21 07:05 Pulse Ox 98 11/21/21 07:05 Intake & Output 11/20/21 11/21/21 11/21/21 18:59 06:59 18:59 Intake Total 1200 800 Balance 1200 800 Intake: IV 1200 800 Sodium Chloride 0.9% 1, 1200 800 000 ml @ 100 mls/hr IV . Q10H [facility] Rx#:[id number] Other: Voiding Method Toilet # Voids 2 3 # Bowel Movements 1 - Labs CBC & Chem 7: 11/20/21 04:40 11/21/21 04:35 Labs: Abnormal Lab Results - Last 24 Hours (Table) 11/20/21 11/21/21 11/21/21 Range/Units 16:39 04:35 06:52 Sodium 134 L (135-145) mmol/L Anion Gap 9.10 L (10.00-18.00) mmol/L Glucose 391 H (70-110) mg/dL POC Glucose (mg/dL) 188 H 315 H (75-99) mg/dL Total Bilirubin 2.90 H (0.30-1.20) mg/dL AST 135 H (14-35) U/L ALT 152 H (10-49) U/L Total Protein 5.2 L (6.2-8.2) g/dL Albumin 3.7 L (3.8-4.9) g/dL Globulin 1.5 L (1.6-3.3) g/dL 11/21/21 Range/Units 11:22 Sodium (135-145) mmol/L Anion Gap (10.00-18.00) mmol/L Glucose (70-110) mg/dL POC Glucose (mg/dL) 257 H (75-99) mg/dL Total Bilirubin (0.30-1.20) mg/dL AST (14-35) U/L ALT (10-49) U/L Total Protein (6.2-8.2) g/dL Albumin (3.8-4.9) g/dL Globulin (1.6-3.3) g/dL
[2021-11-21] MEDS ORDERED: INSULIN DETEMIR (LEVEMIR) 100 UNIT/ML SYR SQ STA (14:14)
[2021-11-21] MEDS ORDERED: ONDANSETRON 4 MG/2 ML VIAL IVP PRN (14:18)
[2021-11-21] MEDS: chlordiazePOXIDE 25 MG CAP PO SCH ×2 (15:33→21:01)
[2021-11-21] MEDS: HYDROcodone/APAP 7.5-325MG 1 EACH TAB PO PRN ×2 (15:39→21:08)
[2021-11-21 16:11] LABS: Glucose,Whole Blood 136 mg/dL (75-99)
[2021-11-21 20:47] LABS: Glucose,Whole Blood 375 mg/dL (75-99)
[2021-11-21] MEDS ORDERED: traZODone HCL 50 MG TAB PO SCH (21:00)
[2021-11-22 06:30] LABS: Glucose,Whole Blood 235 mg/dL (75-99)
[2021-11-22] MEDS ORDERED: INSULIN DETEMIR (LEVEMIR) 100 UNIT/ML SYR SQ SCH (07:00)
[2021-11-22] MEDS: PANTOPRAZOLE 40 MG/10 ML VIAL IVP SCH (07:33)
[2021-11-22] MEDS: HEPARIN SODIUM,PORCINE/PF 5,000 UNIT/0.5 ML SYRINGE SQ SCH ×2 (07:33→15:53)
[2021-11-22] MEDS: INSULIN ASPART (NovoLOG) 100 UNIT/ML VIAL SQ SCH ×3 (07:34→17:01)
[2021-11-22] MEDS: chlordiazePOXIDE 25 MG CAP PO SCH ×2 (07:34→15:53)
[2021-11-22] MEDS: THIAMINE 100 MG TAB PO SCH ×2 (07:34→17:01)
[2021-11-22] MEDS: HYDROcodone/APAP 7.5-325MG 1 EACH TAB PO PRN ×3 (07:41→18:30)
[2021-11-22] MEDS: LORazepam 2 MG/ML INJ IV PRN ×4 (07:41→17:12)
[2021-11-22 11:31] LABS: Glucose,Whole Blood 208 mg/dL (75-99)
[2021-11-22 15:21] VITALS: BP 101/66; PULSE 68; RESP 17; TEMP 97.8
[2021-11-22 16:39] LABS: Glucose,Whole Blood 182 mg/dL (75-99)
--- NOTE | 2021-11-23 14:42 | P.DS ---
Providers Date of admission: 11/19/21 18:57 Expected date of discharge: 11/22/21 Attending physician: Muriel Nick Primary care physician: Stated None Hospital Course: Final diagnosis Epigastric abdominal pain most probably secondary to alcohol gastritis with no evidence of acute pancreatitis at this time Diabetes mellitus type 1 most probably secondary to pancreatic insufficiency from chronic pancreatitis, uncontrolled with hyperglycemia Transaminitis secondary to chronic liver disease with superimposed acute alcoholic hepatitis Continued ongoing nicotine abuse Continued ongoing alcohol abuse Alcohol withdrawal DVT prophylaxis Full code Discharge disposition Patient is being discharged in a stable condition with guarded prognosis to home. Patient will follow-up with Dr. Zepeda in the outpatient setting upon discharge. Patient has also been following up with his old primary care provider out of [place]. Patient is given a Librium taper on discharge. Total time taken is greater than 35 minutes. Hospital course This is a 41-year-old male who was recently admitted with acute DKA, alcohol withdrawal, chronic pancreatitis with abdominal pain and is being closely monitored. Patient was maintained on CIWA protocol along with close Accu-Cheks before meals and at bedtime and as needed and blood sugars improved and will continue current management. Strongly encourage the patient to follow up with endocrine along with primary care provider. Lengthy discussion was had about refraining from any alcohol intake and patient will be continued on a Librium taper on discharge. Patient continues to have some mild abdominal pain although tolerating diet and reports significantly improved from when he first presented to the hospital. Currently no reports of chest pain, shortness of breath, or palpitations. Patient is afebrile. No reports of nausea or vomiting and patient is tolerating diet. Patient will be discharged home today. Guarded prognosis. Physical exam: GENERAL EXAM: Alert and oriented 3, sitting up in bed, no acute distress HEAD: Normocephalic/atraumatic,MMM. EYES: Normal reaction of pupils, equal size. Conjunctiva pink, sclera white. NECK: Supple, no JVD LUNGS: Equal air entry with minimal expiratory wheeze CVS: Regular rate and rhythm, normal S1 and S2, no gallops, no murmurs, no rubs ABDOMEN: Soft, nontender. normal bowel sounds, no guarding or rigidity. EXTREMITIES: No clubbing, no edema, no cyanosis, 2+ pulses and upper and lower extremities. SKIN: Warm and dry, no rashes NERVOUS SYSTEM: Cranial nerves II through XII grossly intact No focal deficits, tone is normal in all 4 extremities. PSYCHIATRIC: Alert and oriented -3. Mood and affect normal. Please refer to medication reconciliation sheet for a list of medications. The impression and plan of care has been dictated by Ramona Szymanski, Nurse Practitioner as directed. Dr. Cr MD I have performed a history and examination and MDM of this patient, discussed the same with the dictator, and agree with the dictator's assessment and plan as written ,documented as a scribe. Based on total visit time, I have performed more than 50% of the visit. Patient Condition at Discharge: Stable Plan - Discharge Summary Discharge Rx Participant: No New Discharge Prescriptions: New chlordiazePOXIDE HCl [Librium] 25 mg PO TID #12 cap HYDROcodone/APAP 7.5-325MG [[place] 7.5-325] 1 each PO Q6HR PRN #6 tab PRN Reason: Pain Thiamine [Vitamin B-1] 100 mg PO BID-W/MEALS 30 Days #60 tab Continue INSULIN LISPRO (HumaLOG) [humaLOG] See Protocol SQ AC-TID ALPRAZolam [Xanax] 0.25 mg PO DIRECTED PRN PRN Reason: Anxiety Folic Acid 0.4 mg PO DAILY Pantoprazole Sodium [Protonix] 40 mg PO BID #60 tab diazePAM [Valium] 5 mg PO DIRECTED PRN PRN Reason: Anxiety traZODone HCL 50 mg PO HS Changed Insulin Glargine [Lantus Vial] 20 unit SQ DAILY #0 Discharge Medication List INSULIN LISPRO (HumaLOG) [humaLOG] See Protocol SQ AC-TID 12/30/20 [History] ALPRAZolam [Xanax] 0.25 mg PO DIRECTED PRN 07/22/21 [History] Folic Acid 0.4 mg PO DAILY 10/20/21 [History] Pantoprazole Sodium [Protonix] 40 mg PO BID #60 tab 10/25/21 [Rx] diazePAM [Valium] 5 mg PO DIRECTED PRN 11/19/21 [History] traZODone HCL 50 mg PO HS 11/21/21 [History] HYDROcodone/APAP 7.5-325MG [[place] 7.5-325] 1 each PO Q6HR PRN #6 tab 11/22/21 [Rx] Insulin Glargine [Lantus Vial] 20 unit SQ DAILY #0 11/22/21 [Rx] Thiamine [Vitamin B-1] 100 mg PO BID-W/MEALS 30 Days #60 tab 11/22/21 [Rx] chlordiazePOXIDE HCl [Librium] 25 mg PO TID #12 cap 11/22/21 [Rx] Follow up Appointment(s)/Referral(s): Aurora Ponce MD [STAFF PHYSICIAN] - 1 Week (office closed at time of discharge. Please call Tuesday to schedule appointment ) Ambulatory/Diagnostic Orders: Comprehensive Metabolic Panel [LAB.AMB] Time Frame: 3 Days, Location: None Selected Patient Instructions/Handouts: Pancreatitis (DC), Diabetic Hyperglycemia (DC) Activity/Diet/Wound Care/Special Instructions: Activity Limited until follow-up Follow-up with primary care provider on discharge Continue taking medications as prescribed Avoid alcohol intake Continue monitoring blood sugars and keep a diary for primary care follow-up Continue with consistent carb diet Discharge Disposition: HOME SELF-CARE
== END 2021-11-22 18:57 | disposition home or self-care (01) | DRG 392 ==
LOC: EC 15:48 → 4SSUR 18:57
PROVIDERS: ADMIT Hospitalist; ATTEND Hospitalist
DX: K29.20 Alcoholic gastritis without bleeding (principal); F10.239 Alcohol dependence with withdrawal, unspecified; K86.1 Other chronic pancreatitis; E87.1 Hypo-osmolality and hyponatremia; F17.210 Nicotine dependence, cigarettes, uncomplicated; F17.290 Nicotine dependence, other tobacco product, uncomplicated; E86.0 Dehydration; E10.65 Type 1 diabetes mellitus with hyperglycemia; K70.10 Alcoholic hepatitis without ascites; F41.9 Anxiety disorder, unspecified; E87.8 Other disorders of electrolyte and fluid balance, not elsewhere classified; Z79.4 Long term (current) use of insulin; Z79.899 Other long term (current) drug therapy; Z71.41 Alcohol abuse counseling and surveillance of alcoholic; Z71.6 Tobacco abuse counseling; Z83.3 Family history of diabetes mellitus
CPT/HCPCS: 36415; 74018; 76705; 80053; 80320; 81003; 82150; 83690; 85025; 85610; 85730; 93005; 96361; 96374; 96375; 96376; 99285

== ENCOUNTER 2021-12-14 12:34 | Observation (INO) | payer OTHER ==
[2021-12-14 13:40] LABS: Glucose,Whole Blood >600 mg/dL (75-99)
[2021-12-14 15:31] LABS: Appearance,Urine Clear (Clear); Bilirubin,Urine Negative (Negative); Blood,Urine Negative (Negative); Color,Urine Colorless; Glucose,Urine (UA) 4+ (Negative); Ketones,Urine Negative (Negative); Leukocyte Esterase,Urine Negative (Negative); Nitrite,Urine Negative (Negative); Protein,Urine Negative (Negative); Urobilinogen,Urine <2.0 mg/dL (<2.0)
[2021-12-14 15:48] LABS: ALT 251 U/L (4-49); AST 702 U/L (17-59); African American GFR (CKD) >90 (>60 ml/min/1.73 sqM); Albumin 4.9 g/dL (3.5-5.0); Alkaline Phosphatase 475 U/L (38-126); Amylase 49 U/L (30-110); Anion Gap 16 mmol/L; Blood Urea Nitrogen 12 mg/dL (9-20); Carbon Dioxide 26 mmol/L (22-30); Chloride 88 mmol/L (98-107); Lipase 66 U/L (23-300); Non-African American GFR(CKD) >90 (>60 ml/min/1.73 sqM); Potassium 4.7 mmol/L (3.5-5.1); Sodium 130 mmol/L (137-145); Total Bilirubin 1.8 mg/dL (0.2-1.3); Total Protein 7.6 g/dL (6.3-8.2)
[2021-12-14 15:58] LABS: Glucose 713 mg/dL (74-99)
[2021-12-14] MEDS ORDERED: SODIUM CHLORIDE 0.9% 1,000 ML IV STA (16:15)
[2021-12-14] MEDS ORDERED: ONDANSETRON 4 MG/2 ML VIAL IVP STA (16:21)
[2021-12-14] MEDS ORDERED: FAMOTIDINE 20 MG/2 ML VIAL IV STA (16:21)
--- NOTE | 2021-12-14 16:23 | ED ---
General Adult HPI - General Chief complaint: Recheck/Abnormal Lab/Rx Stated complaint: diabetic issue Time Seen by Provider: 12/14/21 16:08 Source: patient, RN notes reviewed Mode of arrival: ambulatory Limitations: no limitations - History of Present Illness Initial comments: Patient is a pleasant 41-year-old male presenting to the emergency Department with concerns for high blood sugar. Patient has been trying to stop drinking the past few days, last alcohol intake was around 4 AM. Patient does have nausea and did vomit once. Patient does have history of chronic pancreatitis as well. - Related Data Home Medications Medication Instructions Recorded Confirmed INSULIN LISPRO (HumaLOG) [humaLOG] See Protocol SQ AC-TID 12/30/20 11/19/21 ALPRAZolam [Xanax] 0.25 mg PO DIRECTED PRN 07/22/21 11/19/21 Folic Acid 0.4 mg PO DAILY 10/20/21 11/19/21 diazePAM [Valium] 5 mg PO DIRECTED PRN 11/19/21 11/19/21 traZODone HCL 50 mg PO HS 11/21/21 11/21/21 Previous Rx's Medication Instructions Recorded Pantoprazole Sodium [Protonix] 40 mg PO BID #60 tab 10/25/21 HYDROcodone/APAP 7.5-325MG [[place] 1 each PO Q6HR PRN #6 tab 11/22/21 7.5-325] Insulin Glargine [Lantus Vial] 20 unit SQ DAILY #0 11/22/21 Thiamine [Vitamin B-1] 100 mg PO BID-W/MEALS 30 Days #60 11/22/21 tab chlordiazePOXIDE HCl [Librium] 25 mg PO TID #12 cap 11/22/21 Allergies Allergy/AdvReac Type Severity Reaction Status Date / Time No Known Allergies Allergy Verified 12/14/21 13:36 Review of Systems ROS Statement: Those systems with pertinent positive or pertinent negative responses have been documented in the HPI. ROS Other: All systems not noted in ROS Statement are negative. 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 Past Psychological History: Anxiety Smoking Status: Current every day smoker, Vaper Past Alcohol Use History: Abuse, Daily, Heavy Past Drug Use History: None Reported - Past Family History Father Family Medical History: Diabetes Mellitus Mother History Unknown: Yes Additional Family Medical History / Comment(s): Pt does not have contact with his mother. General Exam Limitations: no limitations General appearance: alert, in no apparent distress Head exam: Present: normocephalic Eye exam: Present: normal appearance ENT exam: Present: normal oropharynx Neck exam: Present: normal inspection Respiratory exam: Present: normal lung sounds bilaterally Cardiovascular Exam: Present: regular rate, normal rhythm GI/Abdominal exam: Present: soft. Absent: distended, tenderness, guarding, rebound, rigid, pulsatile mass Extremities exam: Present: normal inspection Neurological exam: Present: alert Psychiatric exam: Present: normal affect, normal mood Skin exam: Present: normal color Course Vital Signs 12/14/21 12/14/21 13:36 17:15 Temperature 96.9 F L Pulse Rate 98 80 Respiratory 16 18 Rate Blood Pressure 113/81 126/101 O2 Sat by Pulse 98 99 Oximetry Medical Decision Making - Medical Decision Making Patient reevaluated and updated. Case discussed with Dr. Escamilla who will admit [facility]. He would like insulin drip started. - Lab Data Result diagrams: 12/14/21 15:13 12/14/21 15:13 Lab Results 12/14/21 12/14/21 12/14/21 Range/Units 13:38 15:13 15:13 WBC 3.7 L (3.8-10.6) k/uL RBC 5.02 (4.30-5.90) m/uL Hgb 15.6 (13.0-17.5) gm/dL Hct 48.4 (39.0-53.0) % MCV 96.5 (80.0-100.0) fL MCH 31.1 (25.0-35.0) pg MCHC 32.2 (31.0-37.0) g/dL RDW 12.4 (11.5-15.5) % Plt Count 197 (150-450) k/uL MPV 9.0 Neutrophils % 49 % Lymphocytes % 36 % Monocytes % 9 % Eosinophils % 2 % Basophils % 2 % Neutrophils # 1.8 (1.3-7.7) k/uL Lymphocytes # 1.4 (1.0-4.8) k/uL Monocytes # 0.4 (0-1.0) k/uL Eosinophils # 0.1 (0-0.7) k/uL Basophils # 0.1 (0-0.2) k/uL Sodium (137-145) mmol/L Potassium (3.5-5.1) mmol/L Chloride (98-107) mmol/L Carbon Dioxide (22-30) mmol/L Anion Gap mmol/L BUN (9-20) mg/dL Creatinine (0.66-1.25) mg/dL Est GFR (CKD-EPI)AfAm (>60 ml/min/1.73 sqM) Est GFR (CKD-EPI)NonAf (>60 ml/min/1.73 sqM) Glucose (74-99) mg/dL POC Glucose (mg/dL) >600 H (75-99) mg/dL POC Glu Ring Striker ID Monica Escalantesay Lactic Ac Sepsis Rflx Plasma Lactic Acid Bruno (0.7-2.0) mmol/L Calcium (8.4-10.2) mg/dL Total Bilirubin (0.2-1.3) mg/dL AST (17-59) U/L ALT (4-49) U/L Alkaline Phosphatase (38-126) U/L Total Protein (6.3-8.2) g/dL Albumin (3.5-5.0) g/dL Amylase (30-110) U/L Lipase (23-300) U/L Urine Color Colorless Urine Appearance Clear (Clear) Urine pH 5.0 (5.0-8.0) Ur Specific [place] 1.030 (1.001-1.035) Urine Protein Negative (Negative) Urine Glucose (UA) 4+ H (Negative) Urine Ketones Negative (Negative) Urine Blood Negative (Negative) Urine Nitrite Negative (Negative) Urine Bilirubin Negative (Negative) Urine Urobilinogen <2.0 (<2.0) mg/dL Ur Leukocyte Esterase Negative (Negative) Acetone, Qual (Negative) 12/14/21 12/14/21 12/14/21 Range/Units 15:13 15:13 15:13 WBC (3.8-10.6) k/uL RBC (4.30-5.90) m/uL Hgb (13.0-17.5) gm/dL Hct (39.0-53.0) % MCV (80.0-100.0) fL MCH (25.0-35.0) pg MCHC (31.0-37.0) g/dL RDW (11.5-15.5) % Plt Count (150-450) k/uL MPV Neutrophils % % Lymphocytes % % Monocytes % % Eosinophils % % Basophils % % Neutrophils # (1.3-7.7) k/uL Lymphocytes # (1.0-4.8) k/uL Monocytes # (0-1.0) k/uL Eosinophils # (0-0.7) k/uL Basophils # (0-0.2) k/uL Sodium 130 L (137-145) mmol/L Potassium 4.7 (3.5-5.1) mmol/L Chloride 88 L (98-107) mmol/L Carbon Dioxide 26 (22-30) mmol/L Anion Gap 16 mmol/L BUN 12 (9-20) mg/dL Creatinine 0.91 (0.66-1.25) mg/dL Est GFR (CKD-EPI)AfAm >90 (>60 ml/min/1.73 sqM) Est GFR (CKD-EPI)NonAf >90 (>60 ml/min/1.73 sqM) Glucose 713 H* (74-99) mg/dL POC Glucose (mg/dL) (75-99) mg/dL POC Glu Ring Striker ID Lactic Ac Sepsis Rflx Plasma Lactic Acid Bruno 4.3 H* (0.7-2.0) mmol/L Calcium 10.0 (8.4-10.2) mg/dL Total Bilirubin 1.8 H (0.2-1.3) mg/dL AST 702 H (17-59) U/L ALT 251 H (4-49) U/L Alkaline Phosphatase 475 H (38-126) U/L Total Protein 7.6 (6.3-8.2) g/dL Albumin 4.9 (3.5-5.0) g/dL Amylase 49 48 (30-110) U/L Lipase 66 66 (23-300) U/L Urine Color Urine Appearance (Clear) Urine pH (5.0-8.0) Ur Specific [place] (1.001-1.035) Urine Protein (Negative) Urine Glucose (UA) (Negative) Urine Ketones (Negative) Urine Blood (Negative) Urine Nitrite (Negative) Urine Bilirubin (Negative) Urine Urobilinogen (<2.0) mg/dL Ur Leukocyte Esterase (Negative) Acetone, Qual Negative (Negative) 12/14/21 Range/Units 15:49 WBC (3.8-10.6) k/uL RBC (4.30-5.90) m/uL Hgb (13.0-17.5) gm/dL Hct (39.0-53.0) % MCV (80.0-100.0) fL MCH (25.0-35.0) pg MCHC (31.0-37.0) g/dL RDW (11.5-15.5) % Plt Count (150-450) k/uL MPV Neutrophils % % Lymphocytes % % Monocytes % % Eosinophils % % Basophils % % Neutrophils # (1.3-7.7) k/uL Lymphocytes # (1.0-4.8) k/uL Monocytes # (0-1.0) k/uL Eosinophils # (0-0.7) k/uL Basophils # (0-0.2) k/uL Sodium (137-145) mmol/L Potassium (3.5-5.1) mmol/L Chloride (98-107) mmol/L Carbon Dioxide (22-30) mmol/L Anion Gap mmol/L BUN (9-20) mg/dL Creatinine (0.66-1.25) mg/dL Est GFR (CKD-EPI)AfAm (>60 ml/min/1.73 sqM) Est GFR (CKD-EPI)NonAf (>60 ml/min/1.73 sqM) Glucose (74-99) mg/dL POC Glucose (mg/dL) (75-99) mg/dL POC Glu Ring Striker ID Lactic Ac Sepsis Rflx Y Plasma Lactic Acid Bruno (0.7-2.0) mmol/L Calcium (8.4-10.2) mg/dL Total Bilirubin (0.2-1.3) mg/dL AST (17-59) U/L ALT (4-49) U/L Alkaline Phosphatase (38-126) U/L Total Protein (6.3-8.2) g/dL Albumin (3.5-5.0) g/dL Amylase (30-110) U/L Lipase (23-300) U/L Urine Color Urine Appearance (Clear) Urine pH (5.0-8.0) Ur Specific [place] (1.001-1.035) Urine Protein (Negative) Urine Glucose (UA) (Negative) Urine Ketones (Negative) Urine Blood (Negative) Urine Nitrite (Negative) Urine Bilirubin (Negative) Urine Urobilinogen (<2.0) mg/dL Ur Leukocyte Esterase (Negative) Acetone, Qual (Negative) Disposition Clinical Impression: Hyperglycemia, Lactic acidosis Disposition: ADMITTED IP TO THIS HOSP Is patient prescribed a controlled substance at d/c from ED?: No Referrals: None,Stated [Primary Care Provider] - 1-2 days Time of Disposition: 18:26
[2021-12-14 16:36] LABS: Basophils # (A) 0.1 k/uL (0-0.2); Basophils % (A) 2 %; Eosinophils # (A) 0.1 k/uL (0-0.7); Eosinophils % (A) 2 %; HCT 48.4 % (39.0-53.0); HGB 15.6 gm/dL (13.0-17.5); Lymphocytes # (A) 1.4 k/uL (1.0-4.8); Lymphocytes % (A) 36 %; MCH 31.1 pg (25.0-35.0); MCHC 32.2 g/dL (31.0-37.0); MCV 96.5 fL (80.0-100.0); Monocytes # (A) 0.4 k/uL (0-1.0); Monocytes % (A) 9 %; Neutrophils # (A) 1.8 k/uL (1.3-7.7); Neutrophils % (A) 49 %; Platelet Count 197 k/uL (150-450); RBC 5.02 m/uL (4.30-5.90); RDW 12.4 % (11.5-15.5); WBC 3.7 k/uL (3.8-10.6)
[2021-12-14] MEDS ORDERED: LORazepam 2 MG/ML INJ IV STA (17:06)
[2021-12-14 17:34] LABS: Amylase 48 U/L (30-110); Lipase 66 U/L (23-300)
[2021-12-14] MEDS ORDERED: SODIUM CHLORIDE 0.9% 1,000 ML IV ONE (18:28)
[2021-12-14] MEDS ORDERED: INSULIN REGULAR BOLUS (FROM DRIP BAG) IV ONE (18:28)
[2021-12-14] MEDS ORDERED: INSULIN REGULAR 100 UNIT in SODIUM CHLORIDE 0.9% 100 ML IV SCH (18:30)
[2021-12-14] MEDS ORDERED: LORazepam 2 MG/ML INJ IV PRN (18:31)
[2021-12-14 18:57] LABS: Glucose,Whole Blood 375 mg/dL (75-99)
[2021-12-14] MEDS: LORazepam 2 MG/ML INJ IV PRN ×2 (19:02→20:16)
[2021-12-14 20:06] LABS: Glucose,Whole Blood 313 mg/dL (75-99)
[2021-12-14] MEDS: INSULIN ASPART (NovoLOG) 100 UNIT/ML VIAL SQ SCH (20:16)
[2021-12-14 20:25] LABS: African American GFR (CKD) >90 (>60 ml/min/1.73 sqM); Anion Gap 10 mmol/L; Blood Urea Nitrogen 12 mg/dL (9-20); Carbon Dioxide 27 mmol/L (22-30); Chloride 95 mmol/L (98-107); Glucose 326 mg/dL (74-99); Non-African American GFR(CKD) >90 (>60 ml/min/1.73 sqM); Potassium 3.9 mmol/L (3.5-5.1); Sodium 132 mmol/L (137-145)
[2021-12-14 21:19] LABS: Glucose,Whole Blood 178 mg/dL (75-99)
[2021-12-14] MEDS: SODIUM CHLORIDE 0.9% 1,000 ML IV SCH (21:19)
[2021-12-14] MEDS: D5-0.45% NACL WITH KCL 20MEQ/L 1,000 ML IV SCH (21:57)
[2021-12-14 22:26] LABS: Glucose,Whole Blood 73 mg/dL (75-99)
--- NOTE | 2021-12-14 22:55 | P.HPIM ---
History of Present Illness H&P Date: 12/14/21 The patient is a 41-year-old male with a PMH of mixed type diabetes mellitus, chronic pancreatitis, and alcohol abuse who presents to the emergency room with complaints of nausea, vomiting, and abdominal pain. The patient reports that his symptoms started roughly 24 hours ago, and he reports nausea with 2-3 episodes of vomitus with the last one having significant amounts of blood clots. He also reports continued half-gallon of vodka consumption daily. Reports 5 out of 10 diffuse abdominal pain, nonradiating, without alleviating or exacerbating features. Reports that his last drink was around 6 AM this morning. Denied experiencing fever, chills, chest pain, shortness of breath, diarrhea. Laboratory evaluation in the emergency room was remarkable for glucose 713, lactic acid 4.3, sodium 130, chloride 88, AST 702, ALT 251, and negative acetone. Review of systems: Pertinent positives and negatives as discussed in HPI, a complete review of systems was performed and all other systems are negative. Physical examination: General: non toxic, no distress, appears older than stated age, normal weight Derm: no unusual rashes/lesions no unusual ecchymoses, warm, dry Head: atraumatic, normocephalic, symmetric Eyes: EOMI, no lid lag, anicteric sclera, pupils equal round reactive to light ENT: Nose and ears atraumatic, no thrush, no pharyngeal erythema Neck: No thyromegaly, no cervical lymphadenopathy, trachea midline, supple Mouth: no lip lesion, mucus membranes moist Cardiovascular: S1S2 reg, no murmur, positive posterior tibial pulse bilateral, no edema, capillary refill less than 2 seconds Lungs: CTA bilateral, no rhonchi, no rales , no accessory muscle use Abdominal: soft, nontender to palpation, no guarding, no appreciable organomegaly, normal bowel sounds Ext: no gross muscle atrophy, muscle strength 5 out of 5 in all 4 extremities grossly, no contractures, Neuro: CN II-XI grossly intact, light touch intact all 4 extremities, finger to nose within normal limits, Psych: Alert, oriented, appropriate affect Assessment/plan Uncontrolled diabetes mellitus with HHS -Discontinue insulin infusion -Subcu insulin -Continue IV fluids -Blood glucose monitoring -Cardiac monitoring -Obtain EKG Alcohol abuse, impending withdrawal -WA protocol -Thiamine -Fall precautions Hyponatremia, likely pseudo-in setting of hyperglycemia -Continue with treatment for hyperglycemia Abnormal LFTs, likely secondary to ongoing alcohol abuse -Advised on the importance of cessation Lactic acidosis -IV fluids and monitor for resolution DVT prophylaxis -Heparin subq The patient is admitted with an anticipated greater than 2 midnight stay for evaluation of DM CODE STATUS: Full Code Discussed with: Patient Anticipated discharge date: 12/[address]: Home Past Medical History Past Medical History: Diabetes Mellitus, GERD/Reflux Additional Past Medical History / Comment(s): IDDM pt states he has been told he is type 1 and told he is type II, neuropathy occasionally in bilateral toes/fing ers, DKAs, ETOH abuse, past DT's/seizure 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 Past Psychological History: Anxiety Smoking Status: Current every day smoker, Vaper Past Alcohol Use History: Abuse, Daily, Heavy Past Drug Use History: None Reported - Past Family History Father Family Medical History: Diabetes Mellitus Mother History Unknown: Yes Additional Family Medical History / Comment(s): Pt does not have contact with his mother. Medications and Allergies Home Medications Medication Instructions Recorded Confirmed Type INSULIN LISPRO (HumaLOG) [humaLOG] See Protocol SQ AC-TID PRN 12/30/20 12/14/21 History ALPRAZolam [Xanax] 0.25 mg PO HS PRN 07/22/21 12/14/21 History Folic Acid 0.4 mg PO DAILY 10/20/21 12/14/21 History Pantoprazole Sodium [Protonix] 40 mg PO BID #60 tab 10/25/21 12/14/21 Rx traZODone HCL 50 mg PO HS PRN 11/21/21 12/14/21 History Insulin Glargine [Lantus Vial] 20 unit SQ DAILY #0 11/22/21 12/14/21 Rx Thiamine [Vitamin B-1] 100 mg PO BID-W/MEALS 30 Days #60 11/22/21 12/14/21 Rx tab Allergies Allergy/AdvReac Type Severity Reaction Status Date / Time No Known Allergies Allergy Verified 12/14/21 18:31 Physical Exam Vitals: Vital Signs Temp Pulse Resp BP Pulse Ox 12/14/21 20:19 97 18 124/84 98 12/14/21 17:15 80 18 126/101 99 12/14/21 13:36 96.9 F L 98 16 113/81 98 Intake and Output 12/14/21 12/14/21 12/14/21 06:59 14:59 22:59 Other: Weight 74.843 kg Results CBC & Chem 7: 12/14/21 15:13 12/14/21 19:37 Labs: Abnormal Lab Results - Last 24 Hours (Table) 12/14/21 12/14/21 12/14/21 Range/Units 13:38 15:13 15:13 WBC 3.7 L (3.8-10.6) k/uL Sodium (137-145) mmol/L Chloride (98-107) mmol/L Creatinine (0.66-1.25) mg/dL Glucose (74-99) mg/dL POC Glucose (mg/dL) >600 H (75-99) mg/dL Plasma Lactic Acid Bruno (0.7-2.0) mmol/L Total Bilirubin (0.2-1.3) mg/dL AST (17-59) U/L ALT (4-49) U/L Alkaline Phosphatase (38-126) U/L Urine Glucose (UA) 4+ H (Negative) 12/14/21 12/14/21 12/14/21 Range/Units 15:13 15:13 18:54 WBC (3.8-10.6) k/uL Sodium 130 L (137-145) mmol/L Chloride 88 L (98-107) mmol/L Creatinine (0.66-1.25) mg/dL Glucose 713 H* (74-99) mg/dL POC Glucose (mg/dL) 375 H (75-99) mg/dL Plasma Lactic Acid Bruno 4.3 H* (0.7-2.0) mmol/L Total Bilirubin 1.8 H (0.2-1.3) mg/dL AST 702 H (17-59) U/L ALT 251 H (4-49) U/L Alkaline Phosphatase 475 H (38-126) U/L Urine Glucose (UA) (Negative) 12/14/21 12/14/21 12/14/21 Range/Units 19:37 20:05 21:17 WBC (3.8-10.6) k/uL Sodium 132 L (137-145) mmol/L Chloride 95 L (98-107) mmol/L Creatinine 0.64 L (0.66-1.25) mg/dL Glucose 326 H (74-99) mg/dL POC Glucose (mg/dL) 313 H 178 H (75-99) mg/dL Plasma Lactic Acid Bruno (0.7-2.0) mmol/L Total Bilirubin (0.2-1.3) mg/dL AST (17-59) U/L ALT (4-49) U/L Alkaline Phosphatase (38-126) U/L Urine Glucose (UA) (Negative)
[2021-12-15 00:01] LABS: Glucose,Whole Blood 306 mg/dL (75-99)
[2021-12-15] MEDS ORDERED: INSULIN ASPART (NovoLOG) 100 UNIT/ML VIAL SQ ONE (00:02)
[2021-12-15] MEDS ORDERED: INSULIN DETEMIR (LEVEMIR) 100 UNIT/ML SYR SQ STA (00:05)
[2021-12-15 01:18] LABS: African American GFR (CKD) >90 (>60 ml/min/1.73 sqM); Anion Gap 10 mmol/L; Blood Urea Nitrogen 13 mg/dL (9-20); Carbon Dioxide 26 mmol/L (22-30); Chloride 98 mmol/L (98-107); Glucose 313 mg/dL (74-99); Non-African American GFR(CKD) >90 (>60 ml/min/1.73 sqM); Sodium 134 mmol/L (137-145)
[2021-12-15] MEDS: LORazepam 2 MG/ML INJ IV PRN ×8 (01:25→22:59)
[2021-12-15] MEDS: HEPARIN SODIUM,PORCINE/PF 5,000 UNIT/0.5 ML SYRINGE SQ SCH ×5 (01:27→23:04)
[2021-12-15 02:20] LABS: Glucose,Whole Blood 229 mg/dL (75-99)
[2021-12-15] MEDS: D5-0.45% NACL WITH KCL 20MEQ/L 1,000 ML IV SCH (03:39)
[2021-12-15] MEDS: SODIUM CHLORIDE 0.9% 1,000 ML IV SCH ×5 (03:44→20:31)
[2021-12-15] MEDS ORDERED: ALPRAZolam 0.25 MG TAB PO PRN (03:47)
[2021-12-15 04:17] LABS: Glucose,Whole Blood 51 mg/dL (75-99)
[2021-12-15 04:43] LABS: Glucose,Whole Blood 196 mg/dL (75-99)
[2021-12-15 07:29] LABS: Glucose,Whole Blood 149 mg/dL (75-99)
[2021-12-15] MEDS ORDERED: THIAMINE 100 MG TAB PO SCH (07:30)
[2021-12-15] MEDS: INSULIN ASPART (NovoLOG) 100 UNIT/ML VIAL SQ SCH ×4 (08:54→20:17)
[2021-12-15] MEDS: MULTIVITAMINS, THERA 1 EACH TAB PO SCH (09:03)
[2021-12-15] MEDS: PANTOPRAZOLE 40 MG TABLET PO SCH ×2 (09:03→20:31)
[2021-12-15] MEDS: THIAMINE 100 MG TAB PO SCH ×2 (09:06→16:39)
[2021-12-15] MEDS: FOLIC ACID 1 MG TAB PO SCH (09:52)
[2021-12-15 11:30] LABS: Glucose,Whole Blood 94 mg/dL (75-99)
[2021-12-15] MEDS: ONDANSETRON 4 MG/2 ML VIAL IVP PRN ×2 (11:51→20:32)
--- NOTE | 2021-12-15 15:23 | P.PN ---
Subjective Progress Note Date: 12/15/21 Principal diagnosis: Alcohol withdrawal The patient is a 41-year-old male with a PMH of mixed type diabetes mellitus, chronic pancreatitis, and alcohol abuse who presents to the emergency room with complaints of nausea, vomiting, and abdominal pain. The patient reports that his symptoms started roughly 24 hours ago, and he reports nausea with 2-3 episodes of vomitus with the last one having significant amounts of blood clots. He also reports continued half-gallon of vodka consumption daily. Reports 5 out of 10 diffuse abdominal pain, nonradiating, without alleviating or exacerbating features. Reports that his last drink was around 6 AM this morning. Denied experiencing fever, chills, chest pain, shortness of breath, diarrhea. Laboratory evaluation in the emergency room was remarkable for glucose 713, lactic acid 4.3, sodium 130, chloride 88, AST 702, ALT 251, and negative acetone. 12/15/2021: Patient continues to complain of nausea and associated abdominal pa in. He is having some complaints of tremors. He denies any auditory or visual hallucinations. Denies any chest pain or pressure. Denies any difficulty breathing. Patient states that he does not want to drink alcohol any further and is ready to undergo detoxification. He is also interested in enrolling into rehab Objective - Vital Signs Vital signs: Vital Signs Temp 98.2 F 12/15/21 14:00 Pulse 87 12/15/21 14:00 Resp 14 12/15/21 14:00 BP 132/89 12/15/21 14:00 Pulse Ox 97 12/15/21 14:00 Intake & Output 12/14/21 12/15/21 12/15/21 18:59 06:59 18:59 Weight 74.843 kg 74.843 kg - Exam General: non toxic, no distress, appears older than stated age, normal weight Derm: no unusual rashes/lesions no unusual ecchymoses, warm, dry Head: atraumatic, normocephalic, symmetric Eyes: EOMI, no lid lag, anicteric sclera, pupils equal round reactive to light ENT: Nose and ears atraumatic, no thrush, no pharyngeal erythema Neck: No thyromegaly, no cervical lymphadenopathy, trachea midline, supple Mouth: no lip lesion, mucus membranes moist Cardiovascular: S1S2 reg, no murmur, positive posterior tibial pulse bilateral, no edema, capillary refill less than 2 seconds Lungs: CTA bilateral, no rhonchi, no rales , no accessory muscle use Abdominal: soft, nontender to palpation, no guarding, no appreciable organomegaly, normal bowel sounds Ext: no gross muscle atrophy, muscle strength 5 out of 5 in all 4 extremities grossly, no contractures, Neuro: CN II-XI grossly intact, light touch intact all 4 extremities, finger to nose within normal limits, Psych: Alert, oriented, appropriate affect - Labs CBC & Chem 7: 12/14/21 15:13 12/15/21 00:00 Labs: Abnormal Lab Results - Last 24 Hours (Table) 12/14/21 12/14/21 12/14/21 Range/Units 15:13 15:13 15:13 WBC 3.7 L (3.8-10.6) k/uL Sodium 130 L (137-145) mmol/L Chloride 88 L (98-107) mmol/L Creatinine (0.66-1.25) mg/dL Glucose 713 H* (74-99) mg/dL POC Glucose (mg/dL) (75-99) mg/dL Hemoglobin A1c (0.0-6.0) % Plasma Lactic Acid Bruno (0.7-2.0) mmol/L Total Bilirubin 1.8 H (0.2-1.3) mg/dL AST 702 H (17-59) U/L ALT 251 H (4-49) U/L Alkaline Phosphatase 475 H (38-126) U/L Urine Glucose (UA) 4+ H (Negative) 12/14/21 12/14/21 12/14/21 Range/Units 15:13 15:13 18:54 WBC (3.8-10.6) k/uL Sodium (137-145) mmol/L Chloride (98-107) mmol/L Creatinine (0.66-1.25) mg/dL Glucose (74-99) mg/dL POC Glucose (mg/dL) 375 H (75-99) mg/dL Hemoglobin A1c 13.1 H (0.0-6.0) % Plasma Lactic Acid Bruno 4.3 H* (0.7-2.0) mmol/L Total Bilirubin (0.2-1.3) mg/dL AST (17-59) U/L ALT (4-49) U/L Alkaline Phosphatase (38-126) U/L Urine Glucose (UA) (Negative) 12/14/21 12/14/21 12/14/21 Range/Units 19:37 20:05 21:17 WBC (3.8-10.6) k/uL Sodium 132 L (137-145) mmol/L Chloride 95 L (98-107) mmol/L Creatinine 0.64 L (0.66-1.25) mg/dL Glucose 326 H (74-99) mg/dL POC Glucose (mg/dL) 313 H 178 H (75-99) mg/dL Hemoglobin A1c (0.0-6.0) % Plasma Lactic Acid Bruno (0.7-2.0) mmol/L Total Bilirubin (0.2-1.3) mg/dL AST (17-59) U/L ALT (4-49) U/L Alkaline Phosphatase (38-126) U/L Urine Glucose (UA) (Negative) 12/14/21 12/14/21 12/15/21 Range/Units 22:25 23:59 00:00 WBC (3.8-10.6) k/uL Sodium 134 L (137-145) mmol/L Chloride (98-107) mmol/L Creatinine (0.66-1.25) mg/dL Glucose 313 H (74-99) mg/dL POC Glucose (mg/dL) 73 L 306 H (75-99) mg/dL Hemoglobin A1c (0.0-6.0) % Plasma Lactic Acid Bruno (0.7-2.0) mmol/L Total Bilirubin (0.2-1.3) mg/dL AST (17-59) U/L ALT (4-49) U/L Alkaline Phosphatase (38-126) U/L Urine Glucose (UA) (Negative) 12/15/21 12/15/21 12/15/21 Range/Units 02:17 04:05 04:35 WBC (3.8-10.6) k/uL Sodium (137-145) mmol/L Chloride (98-107) mmol/L Creatinine (0.66-1.25) mg/dL Glucose (74-99) mg/dL POC Glucose (mg/dL) 229 H 51 L 196 H (75-99) mg/dL Hemoglobin A1c (0.0-6.0) % Plasma Lactic Acid Bruno (0.7-2.0) mmol/L Total Bilirubin (0.2-1.3) mg/dL AST (17-59) U/L ALT (4-49) U/L Alkaline Phosphatase (38-126) U/L Urine Glucose (UA) (Negative) 12/15/21 Range/Units 07:27 WBC (3.8-10.6) k/uL Sodium (137-145) mmol/L Chloride (98-107) mmol/L Creatinine (0.66-1.25) mg/dL Glucose (74-99) mg/dL POC Glucose (mg/dL) 149 H (75-99) mg/dL Hemoglobin A1c (0.0-6.0) % Plasma Lactic Acid Bruno (0.7-2.0) mmol/L Total Bilirubin (0.2-1.3) mg/dL AST (17-59) U/L ALT (4-49) U/L Alkaline Phosphatase (38-126) U/L Urine Glucose (UA) (Negative) Assessment and Plan (1) Alcohol withdrawal Current Visit: No Status: Acute Code(s): F10.239 - ALCOHOL DEPENDENCE WITH WITHDRAWAL, UNSPECIFIED SNOMED Code(s): 571969332 Plan: Uncontrolled diabetes mellitus with [facility] -Patient's blood sugars have improved. We will resume current insulin regimen. -Continue IV fluids -Blood glucose monitoring Alcohol abuse, with withdrawal -[facility] protocol -Thiamine, folic acid -Patient reports that he is interested in going into alcohol rehab. -Patient will need acute telemetry active WITHDRAWAL symptoms Hyponatremia, likely pseudo-in setting of hyperglycemia -Improved with IV fluids. We'll continue to monitor electrolytes and replace as needed Abnormal LFTs, likely secondary to ongoing alcohol abuse -Advised on the importance of cessation Lactic acidosis -Resolved with IV fluids DVT prophylaxis -Heparin subq The patient is admitted with an anticipated greater than 2 midnight stay for evaluation of DM CODE STATUS: Full Code Discussed with: Patient Anticipated discharge date: 12/[address]: Home
[2021-12-15 16:34] LABS: Glucose,Whole Blood 123 mg/dL (75-99)
[2021-12-15 20:21] LABS: Glucose,Whole Blood 199 mg/dL (75-99)
[2021-12-15] MEDS: INSULIN DETEMIR (LEVEMIR) 100 UNIT/ML SYR SQ SCH (20:35)
[2021-12-16 00:58] LABS: Glucose,Whole Blood 72 mg/dL (75-99)
[2021-12-16] MEDS: SODIUM CHLORIDE 0.9% 1,000 ML IV SCH ×5 (01:19→23:05)
[2021-12-16] MEDS: LORazepam 2 MG/ML INJ IV PRN ×5 (01:20→22:17)
[2021-12-16] MEDS: traZODone HCL 50 MG TAB PO PRN (01:21)
[2021-12-16 08:24] LABS: Glucose,Whole Blood 125 mg/dL (75-99)
[2021-12-16] MEDS: INSULIN ASPART (NovoLOG) 100 UNIT/ML VIAL SQ SCH ×4 (08:24→23:02)
[2021-12-16] MEDS: THIAMINE 100 MG TAB PO SCH ×2 (09:01→16:01)
[2021-12-16] MEDS: PANTOPRAZOLE 40 MG TABLET PO SCH ×2 (09:02→22:18)
[2021-12-16] MEDS: MULTIVITAMINS, THERA 1 EACH TAB PO SCH (09:02)
[2021-12-16] MEDS: HEPARIN SODIUM,PORCINE/PF 5,000 UNIT/0.5 ML SYRINGE SQ SCH ×4 (09:02→23:05)
[2021-12-16] MEDS: FOLIC ACID 1 MG TAB PO SCH (09:03)
[2021-12-16 11:15] LABS: Glucose,Whole Blood 238 mg/dL (75-99)
--- NOTE | 2021-12-16 13:04 | P.PN ---
Subjective Progress Note Date: 12/16/21 Principal diagnosis: Alcohol withdrawal The patient is a 41-year-old male with a PMH of mixed type diabetes mellitus, chronic pancreatitis, and alcohol abuse who presents to the emergency room with complaints of nausea, vomiting, and abdominal pain. The patient reports that his symptoms started roughly 24 hours ago, and he reports nausea with 2-3 episodes of vomitus with the last one having significant amounts of blood clots. He also reports continued half-gallon of vodka consumption daily. Reports 5 out of 10 diffuse abdominal pain, nonradiating, without alleviating or exacerbating features. Reports that his last drink was around 6 AM this morning. Denied experiencing fever, chills, chest pain, shortness of breath, diarrhea. Laboratory evaluation in the emergency room was remarkable for glucose 713, lactic acid 4.3, sodium 130, chloride 88, AST 702, ALT 251, and negative acetone. 12/16/2021: Patient seen and examined. He currently is still on having symptoms of alcohol withdrawal. He still scoring high on CIWA scale per nursing staff. Patient continues to have some symptoms of tremors. He's continued to have some nausea. He denies any visual hallucinations or auditory hallucinations. He continues to voice his desire to completely quit alcohol and enroll into rehab. Patient denies any shortness of breath no chest pain or pressure. No seizure a ctivity Objective - Vital Signs Vital signs: Vital Signs Temp 97.0 F L 12/16/21 07:29 Pulse 77 12/16/21 08:52 Resp 18 12/16/21 08:52 BP 123/81 12/16/21 08:52 Pulse Ox 100 12/16/21 08:52 Intake & Output 12/15/21 12/16/21 12/16/21 18:59 06:59 18:59 Weight 74.843 kg Other: # Voids 3 - Exam General: non toxic, no distress, appears older than stated age, normal weight Derm: no unusual rashes/lesions no unusual ecchymoses, warm, dry Head: atraumatic, normocephalic, symmetric Eyes: EOMI, no lid lag, anicteric sclera, pupils equal round reactive to light ENT: Nose and ears atraumatic, no thrush, no pharyngeal erythema Neck: No thyromegaly, no cervical lymphadenopathy, trachea midline, supple Mouth: no lip lesion, mucus membranes moist Cardiovascular: S1S2 reg, no murmur, positive posterior tibial pulse bilateral, no edema, capillary refill less than 2 seconds Lungs: CTA bilateral, no rhonchi, no rales , no accessory muscle use Abdominal: soft, nontender to palpation, no guarding, no appreciable organomegaly, normal bowel sounds Ext: no gross muscle atrophy, muscle strength 5 out of 5 in all 4 extremities grossly, no contractures, Neuro: CN II-XI grossly intact, light touch intact all 4 extremities, finger to nose within normal limits, Psych: Alert, oriented, appropriate affect - Labs CBC & Chem 7: 12/14/21 15:13 12/15/21 00:00 Labs: Abnormal Lab Results - Last 24 Hours (Table) 12/14/21 12/15/21 12/15/21 Range/Units 15:13 16:32 20:15 POC Glucose (mg/dL) 123 H 199 H (75-99) mg/dL Hemoglobin A1c 13.1 H (0.0-6.0) % 12/16/21 12/16/21 12/16/21 Range/Units 00:56 08:22 11:14 POC Glucose (mg/dL) 72 L 125 H 238 H (75-99) mg/dL Hemoglobin A1c (0.0-6.0) % Assessment and Plan (1) Alcohol withdrawal Current Visit: No Status: Acute Code(s): F10.239 - ALCOHOL DEPENDENCE WITH WITHDRAWAL, UNSPECIFIED SNOMED Code(s): 997628164 Plan: Uncontrolled diabetes mellitus with [facility] -Patient's blood sugars have improved. We will resume current insulin regimen. -Continue IV fluids -Blood glucose monitoring Alcohol abuse, with withdrawal -[facility] protocol -Patient is still requiring significant amount of Ativan. We'll start patient on oral Librium -Thiamine, folic acid -Patient reports that he is interested in going into alcohol rehab. -Patient will need acute telemetry active WITHDRAWAL symptoms Hyponatremia, likely pseudo-in setting of hyperglycemia -Improved with IV fluids. We'll continue to monitor electrolytes and replace as needed Abnormal LFTs, likely secondary to ongoing alcohol abuse -Advised on the importance of cessation Lactic acidosis -Resolved with IV fluids DVT prophylaxis -Heparin subq The patient is admitted with an anticipated greater than 2 midnight stay for evaluation of DM CODE STATUS: Full Code Discussed with: Patient Anticipated discharge date: 12/[address]: Home
[2021-12-16 14:02] VITALS: BMI 23.6
[2021-12-16 15:17] LABS: Basophils # (A) 0.02 X 10*3/uL (0.00-0.10); Basophils % (A) 0.6 %; Eosinophils # (A) 0.13 X 10*3/uL (0.04-0.35); Eosinophils % (A) 3.9 %; HCT 38.3 % (39.6-50.0); HGB 12.9 g/dL (13.0-17.0); Immature Grans, Automated 0.3 %; Lymphocytes # (A) 1.58 X 10*3/uL (0.90-5.00); Lymphocytes % (A) 47.6 %; MCH 31.2 pg (27.0-32.0); MCHC 33.7 g/dL (32.0-37.0); MCV 92.5 fL (80.0-97.0); Mean Platelet Volume 11.4 fL (9.5-12.2); NRBC Per 100 WBC 0 /100 WBCS (0.0-0.0); Neutrophils # (A) 1.28 X 10*3/uL (1.80-7.70); Neutrophils % (A) 38.6 %; Platelet Count 152 X 10*3/uL (140-440); RBC 4.14 X 10*6/uL (4.40-5.60); RDW 12.5 % (11.5-14.5); WBC 3.32 X 10*3/uL (4.50-10.00)
[2021-12-16 15:59] LABS: African American GFR (CKD) 133.3 (60.0-200.0); Anion Gap 9.5 mmol/L (10.00-18.00); BUN/Creat Ratio 10.21 Ratio (12.00-20.00); Blood Urea Nitrogen 7.8 mg/dL (9.0-27.0); Calcium 8.7 mg/dL (8.7-10.3); Carbon Dioxide 26.4 mmol/L (20.0-27.5); Potassium 3.9 mmol/L (3.5-5.5)
[2021-12-16] MEDS: chlordiazePOXIDE 25 MG CAP PO SCH ×2 (16:00→23:02)
[2021-12-16 16:33] LABS: Glucose,Whole Blood 374 mg/dL (75-99)
[2021-12-16 22:18] LABS: Glucose,Whole Blood 424 mg/dL (75-99)
[2021-12-16] MEDS: INSULIN DETEMIR (LEVEMIR) 100 UNIT/ML SYR SQ SCH (22:18)
[2021-12-17] MEDS: traZODone HCL 50 MG TAB PO PRN (00:44)
[2021-12-17 03:26] LABS: Glucose,Whole Blood 280 mg/dL (75-99)
[2021-12-17] MEDS: SODIUM CHLORIDE 0.9% 1,000 ML IV SCH ×5 (04:59→22:33)
[2021-12-17] MEDS: LORazepam 2 MG/ML INJ IV PRN ×9 (05:42→23:16)
[2021-12-17 07:00] LABS: Glucose,Whole Blood 146 mg/dL (75-99)
[2021-12-17 07:06] LABS: African American GFR (CKD) >90 (>60 ml/min/1.73 sqM); Anion Gap 5 mmol/L; Blood Urea Nitrogen 5 mg/dL (9-20); Calcium 8.3 mg/dL (8.4-10.2); Carbon Dioxide 24 mmol/L (22-30); Chloride 109 mmol/L (98-107); Glucose 164 mg/dL (74-99); Non-African American GFR(CKD) >90 (>60 ml/min/1.73 sqM); Potassium 3.7 mmol/L (3.5-5.1); Sodium 138 mmol/L (137-145)
[2021-12-17] MEDS: HEPARIN SODIUM,PORCINE/PF 5,000 UNIT/0.5 ML SYRINGE SQ SCH ×3 (09:21→22:35)
[2021-12-17] MEDS: chlordiazePOXIDE 25 MG CAP PO SCH ×3 (09:21→22:33)
[2021-12-17] MEDS: PANTOPRAZOLE 40 MG TABLET PO SCH ×2 (09:21→21:07)
[2021-12-17] MEDS: THIAMINE 100 MG TAB PO SCH ×2 (09:21→16:58)
[2021-12-17] MEDS: INSULIN ASPART (NovoLOG) 100 UNIT/ML VIAL SQ SCH ×4 (09:21→21:06)
[2021-12-17] MEDS: FOLIC ACID 1 MG TAB PO SCH (09:21)
[2021-12-17] MEDS: MULTIVITAMINS, THERA 1 EACH TAB PO SCH (09:21)
[2021-12-17 11:21] LABS: Glucose,Whole Blood 251 mg/dL (75-99)
--- NOTE | 2021-12-17 15:35 | P.PN ---
Subjective Progress Note Date: 12/17/21 Principal diagnosis: Alcohol withdrawal 41-year-old male with a PMH of mixed type diabetes mellitus, chronic pancreatitis, and alcohol abuse who presents to the emergency room with complaints of nausea, vomiting, and abdominal pain. The patient reports that his symptoms started roughly 24 hours ago, and he reports nausea with 2-3 episodes of vomitus with the last one having significant amounts of blood clots. He also reports continued half-gallon of vodka consumption daily. Reports 5 out of 10 diffuse abdominal pain, nonradiating, without alleviating or exacerbating features. Reports that his last drink was around 6 AM this morning. Denied experiencing fever, chills, chest pain, shortness of breath, diarrhea. Laboratory evaluation in the emergency room was remarkable for glucose 713, lactic acid 4.3, sodium 130, chloride 88, AST 702, ALT 251, and negative acetone. 12/16/2021: Patient seen and examined. He currently is still on having symptoms of alcohol withdrawal. He still scoring high on CIWA scale per nursing staff. Patient continues to have some symptoms of tremors. He's continued to have some nausea. He denies any visual hallucinations or auditory hallucinations. He continues to voice his desire to completely quit alcohol and enroll into rehab. Patient denies any shortness of breath no chest pain or pressure. No seizure activity 12/17: Patient still having withdrawal symptoms. He is still shaky and anxious. Still receiving Ativan. Objective - Vital Signs Vital signs: Vital Signs Temp 98.4 F 12/17/21 14:44 Pulse 74 12/17/21 14:44 Resp 18 12/17/21 14:44 BP 134/84 12/17/21 14:44 Pulse Ox 100 12/17/21 14:44 Intake & Output 12/16/21 12/17/21 12/17/21 18:59 06:59 18:59 Intake Total 1600 Balance 1600 Weight 74.843 kg Intake: Intake, IV Titration 1600 Amount Sodium Chloride 0.9% 1, 1600 000 ml @ 200 mls/hr IV . Q5H [facility] Rx#:[id number] Other: Voiding Method Toilet - Exam Constitutional: No acute distress, conversant, pleasant Eyes:Anicteric sclerae, moist conjunctiva, no lid-lag, PERRLA, ENMT: Oropharynx clear, no erythema, exudates Neck: Supple, FROM, no masses, or JVD, No carotid bruits, No thyromegaly Lungs: Clear to auscultation, Clear to percussion, Normal respiratory effort, no accessory muscle use Cardiovascular: Heart regular in rate and rhythm, No murmurs, gallops, or rubs, No peripheral edema Abdominal: Soft, Nontender, no guarding, rebound or rigidity, Normoactive bowel sounds, No hepatomegaly, No splenomegaly, No palpable mass Skin: Normal temperature, tone, texture, turgor, no induration, No subcutaneous nodules, No rash, lesions, No ulcers Extremities: No digital cyanosis, No clubbing, Pedal pulses intact and symmetrical, Radial pulses intact and symmetrical, No calf tenderness Psychiatric: Alert and oriented to person, place and time, appropriate affect, intact judgement Neuro: Bilateral hand tremors. Muscles Strength 5/5 in all 4 extremities, Sensation to light touch grossly present throughout, Cranial nerves II-XII grossly intact, no focal sensory deficits - Labs CBC & Chem 7: 12/16/21 08:00 12/17/21 06:18 Labs: Abnormal Lab Results - Last 24 Hours (Table) 12/16/21 12/16/21 12/16/21 Range/Units 08:00 16:31 22:17 Chloride (98-107) mmol/L Anion Gap 9.50 L (10.00-18.00) mmol/L BUN 7.8 L (9.0-27.0) mg/dL Creatinine (0.66-1.25) mg/dL BUN/Creatinine Ratio 10.21 L (12.00-20.00) Ratio Glucose 128 H (70-110) mg/dL POC Glucose (mg/dL) 374 H 424 H (75-99) mg/dL Calcium (8.4-10.2) mg/dL 12/17/21 12/17/21 12/17/21 Range/Units 03:23 06:18 06:58 Chloride 109 H (98-107) mmol/L Anion Gap (10.00-18.00) mmol/L BUN 5 L (9.0-27.0) mg/dL Creatinine 0.64 L (0.66-1.25) mg/dL BUN/Creatinine Ratio (12.00-20.00) Ratio Glucose 164 H (70-110) mg/dL POC Glucose (mg/dL) 280 H 146 H (75-99) mg/dL Calcium 8.3 L (8.4-10.2) mg/dL 12/17/21 Range/Units 11:19 Chloride (98-107) mmol/L Anion Gap (10.00-18.00) mmol/L BUN (9.0-27.0) mg/dL Creatinine (0.66-1.25) mg/dL BUN/Creatinine Ratio (12.00-20.00) Ratio Glucose (70-110) mg/dL POC Glucose (mg/dL) 251 H (75-99) mg/dL Calcium (8.4-10.2) mg/dL Assessment and Plan Plan: Uncontrolled diabetes mellitus with [facility] -Patient's blood sugars have improved. We will resume current insulin regimen. -Continue IV fluids -Blood glucose monitoring Alcohol abuse, with withdrawal -[facility] protocol -Continue Ativan and Librium -Thiamine, folic acid Hyponatremia, likely pseudo-in setting of hyperglycemia -Improved with IV fluids. We'll continue to monitor electrolytes and replace as needed Abnormal LFTs, likely secondary to ongoing alcohol abuse -Advised on the importance of cessation Lactic acidosis -Resolved with IV fluids DVT prophylaxis -Heparin subq CODE STATUS: Full Code Discussed with: Patient Anticipated discharge date: 1-[address]: Home
[2021-12-17 16:19] LABS: Glucose,Whole Blood 317 mg/dL (75-99)
[2021-12-17 21:01] LABS: Glucose,Whole Blood 370 mg/dL (75-99)
[2021-12-17] MEDS: INSULIN DETEMIR (LEVEMIR) 100 UNIT/ML SYR SQ SCH (21:07)
[2021-12-18] MEDS: traZODone HCL 50 MG TAB PO PRN ×2 (00:16→22:08)
[2021-12-18] MEDS: LORazepam 2 MG/ML INJ IV PRN ×6 (02:07→21:11)
[2021-12-18 03:13] LABS: Glucose,Whole Blood 125 mg/dL (75-99)
[2021-12-18] MEDS: SODIUM CHLORIDE 0.9% 1,000 ML IV SCH ×5 (04:18→22:08)
[2021-12-18] MEDS: HEPARIN SODIUM,PORCINE/PF 5,000 UNIT/0.5 ML SYRINGE SQ SCH ×3 (07:04→22:37)
[2021-12-18 08:07] LABS: Glucose,Whole Blood 84 mg/dL (75-99)
[2021-12-18] MEDS: INSULIN ASPART (NovoLOG) 100 UNIT/ML VIAL SQ SCH ×4 (08:19→22:35)
[2021-12-18] MEDS: MULTIVITAMINS, THERA 1 EACH TAB PO SCH (09:34)
[2021-12-18] MEDS: FOLIC ACID 1 MG TAB PO SCH (09:34)
[2021-12-18] MEDS: chlordiazePOXIDE 25 MG CAP PO SCH ×3 (09:34→22:16)
[2021-12-18] MEDS: THIAMINE 100 MG TAB PO SCH ×2 (09:34→17:13)
[2021-12-18] MEDS: PANTOPRAZOLE 40 MG TABLET PO SCH ×2 (09:34→21:11)
[2021-12-18 11:30] LABS: Glucose,Whole Blood 258 mg/dL (75-99)
--- NOTE | 2021-12-18 12:33 | P.DS ---
Providers Date of admission: 12/14/21 18:28 Expected date of discharge: 12/18/21 Attending physician: Sheila Vazquez MD Primary care physician: Stated None Hospital Course: 41-year-old male with a PMH of mixed type diabetes mellitus, chronic pancreatitis, and alcohol abuse who presents to the emergency room with complaints of nausea, vomiting, and abdominal pain. The patient reports that his symptoms started roughly 24 hours ago, and he reports nausea with 2-3 episodes of vomitus with the last one having significant amounts of blood clots. He also reports continued half-gallon of vodka consumption daily. Reports 5 out of 10 diffuse abdominal pain, nonradiating, without alleviating or exacerbating features. Reports that his last drink was around 6 AM this morning. Denied experiencing fever, chills, chest pain, shortness of breath, diarrhea. Laboratory evaluation in the emergency room was remarkable for glucose 713, lactic acid 4.3, sodium 130, chloride 88, AST 702, ALT 251, and negative acetone. Patient was admitted for symptom control and alcohol withdrawal. He was reinitiated on his insulin regimen at home. He was also treated symptomatically with Zofran as well as benzodiazepines for alcohol withdrawal symptoms. His symptoms improved with treatment. Today's only having minimal anxiety due to alcohol withdrawal. He is interested in going back to alcohol rehab. He states he'll go back to his girlfriend house for couple of days prior to going to [place]. I will prescribe some Librium for him to go home with. He was discharged home in stable condition. Time for discharge 35 minutes. Plan - Discharge Summary New Discharge Prescriptions: New chlordiazePOXIDE HCl [Librium] 25 mg PO QID 3 Days #12 capsule Continue INSULIN LISPRO (HumaLOG) [humaLOG] See Protocol SQ AC-TID PRN PRN Reason: HIGH BLOOD SUGAR ALPRAZolam [Xanax] 0.25 mg PO HS PRN PRN Reason: Anxiety Folic Acid 0.4 mg PO DAILY Pantoprazole Sodium [Protonix] 40 mg PO BID #60 tab traZODone HCL 50 mg PO HS PRN PRN Reason: SLEEP Thiamine [Vitamin B-1] 100 mg PO BID-W/MEALS 30 Days #60 tab Insulin Glargine [Lantus Vial] 20 unit SQ DAILY #0 Discharge Medication List INSULIN LISPRO (HumaLOG) [humaLOG] See Protocol SQ AC-TID PRN 12/30/20 [History] ALPRAZolam [Xanax] 0.25 mg PO HS PRN 07/22/21 [History] Folic Acid 0.4 mg PO DAILY 10/20/21 [History] Pantoprazole Sodium [Protonix] 40 mg PO BID #60 tab 10/25/21 [Rx] traZODone HCL 50 mg PO HS PRN 11/21/21 [History] Insulin Glargine [Lantus Vial] 20 unit SQ DAILY #0 11/22/21 [Rx] Thiamine [Vitamin B-1] 100 mg PO BID-W/MEALS 30 Days #60 tab 11/22/21 [Rx] chlordiazePOXIDE HCl [Librium] 25 mg PO QID 3 Days #12 capsule 12/18/21 [Rx] Follow up Appointment(s)/Referral(s): None,Stated [Primary Care Provider] - 1-2 days
--- NOTE | 2021-12-18 15:54 | P.PN ---
Subjective Progress Note Date: 12/18/21 Principal diagnosis: Alcohol withdrawal 41-year-old male with a PMH of mixed type diabetes mellitus, chronic pancreatitis, and alcohol abuse who presents to the emergency room with complaints of nausea, vomiting, and abdominal pain. The patient reports that his symptoms started roughly 24 hours ago, and he reports nausea with 2-3 episodes of vomitus with the last one having significant amounts of blood clots. He also reports continued half-gallon of vodka consumption daily. Reports 5 out of 10 diffuse abdominal pain, nonradiating, without alleviating or exacerbating features. Reports that his last drink was around 6 AM this morning. Denied experiencing fever, chills, chest pain, shortness of breath, diarrhea. Laboratory evaluation in the emergency room was remarkable for glucose 713, lactic acid 4.3, sodium 130, chloride 88, AST 702, ALT 251, and negative acetone. 12/16/2021: Patient seen and examined. He currently is still on having symptoms of alcohol withdrawal. He still scoring high on CIWA scale per nursing staff. Patient continues to have some symptoms of tremors. He's continued to have some nausea. He denies any visual hallucinations or auditory hallucinations. He continues to voice his desire to completely quit alcohol and enroll into rehab. Patient denies any shortness of breath no chest pain or pressure. No seizure activity 12/17: Patient still having withdrawal symptoms. He is still shaky and anxious. Still receiving Ativan. 12/18: still with high CIWA scores and requiring ativan Objective - Vital Signs Vital signs: Vital Signs Temp 98.0 F 12/18/21 14:00 Pulse 99 12/18/21 14:00 Resp 17 12/18/21 14:00 BP 148/75 12/18/21 14:00 Pulse Ox 98 12/18/21 14:00 Intake & Output 12/17/21 12/18/21 12/18/21 18:59 06:59 18:59 Intake Total 1600 Balance 1600 Intake: Intake, IV Titration 1600 Amount Sodium Chloride 0.9% 1, 1600 000 ml @ 200 mls/hr IV . Q5H [facility] Rx#:[id number] Other: Voiding Method Toilet - Exam Constitutional: No acute distress, conversant, pleasant Eyes:Anicteric sclerae, moist conjunctiva, no lid-lag, PERRLA, ENMT: Oropharynx clear, no erythema, exudates Neck: Supple, FROM, no masses, or JVD, No carotid bruits, No thyromegaly Lungs: Clear to auscultation, Clear to percussion, Normal respiratory effort, no accessory muscle use Cardiovascular: Heart regular in rate and rhythm, No murmurs, gallops, or rubs, No peripheral edema Abdominal: Soft, Nontender, no guarding, rebound or rigidity, Normoactive bowel sounds, No hepatomegaly, No splenomegaly, No palpable mass Skin: Normal temperature, tone, texture, turgor, no induration, No subcutaneous nodules, No rash, lesions, No ulcers Extremities: No digital cyanosis, No clubbing, Pedal pulses intact and symmetrical, Radial pulses intact and symmetrical, No calf tenderness Psychiatric: Alert and oriented to person, place and time, appropriate affect, intact judgement Neuro: Bilateral hand tremors. Muscles Strength 5/5 in all 4 extremities, Sensation to light touch grossly present throughout, Cranial nerves II-XII grossly intact, no focal sensory deficits - Labs CBC & Chem 7: 12/16/21 08:00 12/17/21 06:18 Labs: Abnormal Lab Results - Last 24 Hours (Table) 12/17/21 12/17/21 12/18/21 Range/Units 16:17 20:59 03:12 POC Glucose (mg/dL) 317 H 370 H 125 H (75-99) mg/dL 12/18/21 Range/Units 11:28 POC Glucose (mg/dL) 258 H (75-99) mg/dL Assessment and Plan Plan: Uncontrolled diabetes mellitus with [facility] -Patient's blood sugars have improved. We will resume current insulin regimen. -Continue IV fluids -Blood glucose monitoring Alcohol abuse, with withdrawal -[facility] protocol -Continue Ativan and Librium -Thiamine, folic acid Hyponatremia, likely pseudo-in setting of hyperglycemia -Improved with IV fluids. We'll continue to monitor electrolytes and replace as needed Abnormal LFTs, likely secondary to ongoing alcohol abuse -Advised on the importance of cessation Lactic acidosis -Resolved with IV fluids DVT prophylaxis -Heparin subq CODE STATUS: Full Code Discussed with: Patient Anticipated discharge date: 1-[address]: Home
[2021-12-18 16:42] LABS: Glucose,Whole Blood 384 mg/dL (75-99)
[2021-12-18 21:11] LABS: Glucose,Whole Blood 401 mg/dL (75-99)
[2021-12-18] MEDS: INSULIN DETEMIR (LEVEMIR) 100 UNIT/ML SYR SQ SCH (22:36)
[2021-12-19] MEDS: LORazepam 2 MG/ML INJ IV PRN ×5 (00:04→12:52)
[2021-12-19 00:22] LABS: Glucose,Whole Blood 410 mg/dL (75-99)
[2021-12-19 02:20] LABS: Glucose,Whole Blood 316 mg/dL (75-99)
[2021-12-19 03:09] VITALS: RESP 18
[2021-12-19 04:41] LABS: Glucose,Whole Blood 289 mg/dL (75-99)
[2021-12-19 07:02] LABS: Glucose,Whole Blood 208 mg/dL (75-99)
[2021-12-19] MEDS: SODIUM CHLORIDE 0.9% 1,000 ML IV SCH ×2 (07:53→10:11)
[2021-12-19] MEDS: THIAMINE 100 MG TAB PO SCH (07:55)
[2021-12-19] MEDS: FOLIC ACID 1 MG TAB PO SCH (07:55)
[2021-12-19] MEDS: MULTIVITAMINS, THERA 1 EACH TAB PO SCH (07:55)
[2021-12-19] MEDS: INSULIN ASPART (NovoLOG) 100 UNIT/ML VIAL SQ SCH ×2 (07:55→12:35)
[2021-12-19] MEDS: PANTOPRAZOLE 40 MG TABLET PO SCH (07:55)
[2021-12-19] MEDS: HEPARIN SODIUM,PORCINE/PF 5,000 UNIT/0.5 ML SYRINGE SQ SCH ×2 (08:04→17:15)
[2021-12-19] MEDS: chlordiazePOXIDE 25 MG CAP PO SCH ×2 (10:30→17:14)
[2021-12-19 11:24] LABS: Glucose,Whole Blood 143 mg/dL (75-99)
[2021-12-19 13:33] LABS: ALT 96 U/L (4-49); AST 54 U/L (17-59); African American GFR (CKD) >90 (>60 ml/min/1.73 sqM); Albumin 3.9 g/dL (3.5-5.0); Albumin/Globulin Ratio 1.6; Alkaline Phosphatase 180 U/L (38-126); Anion Gap 7 mmol/L; Blood Urea Nitrogen 7 mg/dL (9-20); Calcium 8.9 mg/dL (8.4-10.2); Carbon Dioxide 23 mmol/L (22-30); Chloride 101 mmol/L (98-107); Globulin 2.5 g/dL; Glucose 292 mg/dL (74-99); Non-African American GFR(CKD) >90 (>60 ml/min/1.73 sqM); Potassium 4.5 mmol/L (3.5-5.1); Sodium 131 mmol/L (137-145); Total Bilirubin 1.3 mg/dL (0.2-1.3); Total Protein 6.4 g/dL (6.3-8.2)
[2021-12-19 14:45] VITALS: BP 129/79; PULSE 76; TEMP 98.4
[2021-12-19 16:31] LABS: Glucose,Whole Blood 310 mg/dL (75-99)
== END 2021-12-19 17:43 | disposition home or self-care (01) ==
LOC: EC 12:34 → 4SSUR 18:28 → INTOOBSV 18:28 → 4SSUR 12-15 00:05 → UNDODISIN 12-19 17:43
PROVIDERS: ADMIT Hospitalist; ATTEND Hospitalist
DX: E11.65 Type 2 diabetes mellitus with hyperglycemia (principal); F10.139 Alcohol abuse with withdrawal, unspecified; E87.2 Acidosis; K86.1 Other chronic pancreatitis; R79.89 Other specified abnormal findings of blood chemistry; E87.1 Hypo-osmolality and hyponatremia; F17.290 Nicotine dependence, other tobacco product, uncomplicated; K21.9 Gastro-esophageal reflux disease without esophagitis; F41.9 Anxiety disorder, unspecified; Z79.4 Long term (current) use of insulin; Z79.899 Other long term (current) drug therapy; Z71.41 Alcohol abuse counseling and surveillance of alcoholic; Z83.3 Family history of diabetes mellitus
CPT/HCPCS: 99285; 96376 ×7; 96361 ×5; 96372; 96374; 96375; 36415; 80051 ×2; 80053 ×2; 80048 ×2; 82150; 82565 ×2; 82009; 83605; 83690; 84100 ×2; 82947 ×2; 84520 ×2; 85025 ×2; 81003; 83036; G0378 ×6; J2060 ×6; J2405 ×2; J1644

== ENCOUNTER 2022-03-12 14:33 | Inpatient (IN) | payer OTHER ==
[2022-03-12] MEDS ORDERED: MIDAZOLAM 1 MG/ML 5 ML VIAL IV STA ×2 (17:02→20:01)
[2022-03-12] MEDS ORDERED: SODIUM CHLORIDE 0.9% 2,000 ML IV STA (17:39)
[2022-03-12] MEDS ORDERED: ONDANSETRON 4 MG/2 ML VIAL IVP STA (17:40)
[2022-03-12] MEDS ORDERED: HYDROmorphone 0.5 MG/0.5 ML SYRINGE IVP STA ×2 (17:40→19:58)
[2022-03-12 17:58] LABS: Basophils % (A) 1 %; Eosinophils # (A) 0.1 k/uL (0-0.7); Eosinophils % (A) 1 %; HCT 53.5 % (39.0-53.0); HGB 17.9 gm/dL (13.0-17.5); Lymphocytes # (A) 1.1 k/uL (1.0-4.8); Lymphocytes % (A) 24 %; MCH 32.5 pg (25.0-35.0); MCHC 33.4 g/dL (31.0-37.0); MCV 97.3 fL (80.0-100.0); Mean Platelet Volume 8.1; Monocytes # (A) 0.3 k/uL (0-1.0); Monocytes % (A) 6 %; Neutrophils # (A) 3.1 k/uL (1.3-7.7); Neutrophils % (A) 66 %; Platelet Count 260 k/uL (150-450); RDW 12.8 % (11.5-15.5); WBC 4.7 k/uL (3.8-10.6)
[2022-03-12 18:52] LABS: ALT 68 U/L (4-49); AST 84 U/L (17-59); African American GFR (CKD) >90 (>60 ml/min/1.73 sqM); Alcohol <10 mg/dL; Alkaline Phosphatase 137 U/L (38-126); Amylase 35 U/L (30-110); Anion Gap 31 mmol/L; Blood Urea Nitrogen 11 mg/dL (9-20); Calcium 10.1 mg/dL (8.4-10.2); Chloride 92 mmol/L (98-107); Glucose 305 mg/dL (74-99); Lipase 41 U/L (23-300); Non-African American GFR(CKD) >90 (>60 ml/min/1.73 sqM); Potassium 5.6 mmol/L (3.5-5.1); Sodium 132 mmol/L (137-145); Total Protein 9.5 g/dL (6.3-8.2)
[2022-03-12 18:54] LABS: Carbon Dioxide 9 mmol/L (22-30)
[2022-03-12 18:55] LABS: Albumin 6.2 g/dL (3.5-5.0)
[2022-03-12] MEDS ORDERED: THIAMINE 100 MG/ML 2 ML VIAL IM STA (19:00)
--- NOTE | 2022-03-12 19:00 | ED ---
Abdominal Pain HPI - General Source: patient Mode of arrival: ambulatory Limitations: no limitations <Lyssa Roman - Last Filed: 03/12/22 20:28> <Christian Lr - Last Filed: 03/16/22 05:15> - General Chief Complaint: Abdominal Pain Stated Complaint: Diabetic issues Time Seen by Provider: 03/12/22 16:55 - History of Present Illness Initial Comments: Patient is a 41-year-old male with a past medical history significant for mixed type diabetes mellitus, alcohol use disorder, and chronic pancreatitis who presents to the emergency department with a chief complaint of abdominal pain. Pain started 2 days ago. Patient reports pain in the mid upper abdomen which he states feels similar to pancreatitis. Reports nausea and vomiting,and inability to tolerate oral intake. Admits to chills and diarrhea, non bloody. Patient states he recently relapsed on alcohol and has been drinking 40 tall beers a day. Last drink was this morning around 6 AM. Admits to seeing shadows. Denies drug use. Denies chest pain and shortness of breath. Patient states he has been camping for the past 10 days and forgot his glucometer and insulin therefore he has not checked his sugar or taking insulin. (Lyssa Roman) - Related Data Home Medications Medication Instructions Recorded Confirmed INSULIN LISPRO (HumaLOG) [humaLOG] See Protocol SQ AC-TID PRN MDD 30 12/30/20 03/12/22 ALPRAZolam [Xanax] 0.25 mg PO BID PRN 07/22/21 03/12/22 traZODone HCL 50 mg PO HS PRN 11/21/21 03/12/22 Pantoprazole Sodium 20 mg PO DAILY 03/12/22 03/12/22 Previous Rx's Medication Instructions Recorded Insulin Glargine [Lantus Vial] 20 unit SQ DAILY #0 11/22/21 Allergies Allergy/AdvReac Type Severity Reaction Status Date / Time No Known Allergies Allergy Verified 03/12/22 15:04 Review of Systems ROS Other: All systems not noted in ROS Statement are negative. <Lyssa Roman - Last Filed: 03/12/22 20:28> ROS Other: All systems not noted in ROS Statement are negative. <Christian Lr - Last Filed: 03/16/22 05:15> ROS Statement: Those systems with pertinent positive or pertinent negative responses have been documented in the HPI. Past Medical History Past Medical History: Diabetes Mellitus, GERD/Reflux Additional Past Medical History / Comment(s): IDDM pt states he has been told he is type 1 and told he is type II, neuropathy occasionally in bilateral toes/fingers, DKAs, ETOH abuse, past DT's/seizure when withdrawing from alcohol said last sz possibly a year ago, chronic pancreatitis History of Any Multi-Drug Resistant Organisms: None Reported Past Surgical History: No Surgical Hx Reported Additional Past Surgical History / Comment(s): Pt has never had surgery Past Anesthesia/Blood Transfusion Reactions: Unable to Obtain Additional Past Anesthesia/Blood Transfusion Reaction / Comment(s): Pt has never had surgery. Past Psychological History: Anxiety Smoking Status: Current every day smoker, Vaper Past Alcohol Use History: Abuse, Daily, Heavy Past Drug Use History: None Reported - Past Family History Father Family Medical History: Diabetes Mellitus Mother History Unknown: Yes Additional Family Medical History / Comment(s): Pt does not have contact with his mother. <Lyssa Roman - Last Filed: 03/12/22 20:28> General Exam Limitations: no limitations General appearance: alert, in no apparent distress Head exam: Present: atraumatic, normocephalic, normal inspection Eye exam: Present: normal appearance, PERRL, EOMI. Absent: scleral icterus, conjunctival injection, periorbital swelling ENT exam: Present: mucous membranes moist, other (Tongue fasciculation) Respiratory exam: Present: normal lung sounds bilaterally. Absent: respiratory distress, wheezes, rales, rhonchi, stridor Cardiovascular Exam: Present: normal rhythm, tachycardia, normal heart sounds. Absent: regular rate, systolic murmur, diastolic murmur, rubs, gallop, clicks GI/Abdominal exam: Present: soft, tenderness (epigastric ), normal bowel sounds. Absent: distended, guarding, rebound, rigid Extremities exam: Present: other (b/l hand tremors) Neurological exam: Present: alert, oriented X3, CN II-XII intact Psychiatric exam: Present: normal affect, normal mood Skin exam: Present: warm, dry, intact, normal color. Absent: rash <Lyssa Roman - Last Filed: 03/12/22 20:28> Course Vital Signs 03/12/22 03/12/22 03/12/22 15:02 17:45 19:49 Temperature 98.3 F Pulse Rate 104 H 83 91 Respiratory 20 18 20 Rate Blood Pressure 132/76 136/96 138/98 O2 Sat by Pulse 98 99 100 Oximetry Medical Decision Making - Lab Data Result diagrams: 03/12/22 17:35 03/12/22 17:35 <Lyssa Roman - Last Filed: 03/12/22 20:28> - Lab Data Result diagrams: 03/14/22 06:53 03/14/22 06:53 <Christian Lr - Last Filed: 03/16/22 05:15> - Medical Decision Making This is a 41 year old male presenting with epigastric pain. Thorough history and examination were performed. Patient appears to withdrawing from alcohol. There are tongue fasciculation and hand tremors. Does report hallucinations however does not appear to be actively hallucinating during my evaluation. Muco us membranes are dry. The abdomen is soft. There is moderate tenderness in the epigastric region without guarding. Laboratory studies obtained. Patient experiencing euglycemic diabetic ketoacidosis. Carbon dioxide is critically low at 9. Anion gap is 31. Glucose is 305. Urinalysis reveals 4+ ketones and 4+ glucose. Acetone is positive. Given patient's heavy alcohol use, consistent vomiting, and dehydration, this may also reflect alcoholic ketoacidosis. Pain and nausea controlled. Patient given large fluid bolus. Case discussed with Dr. Anderson who is agreeable to admission. Librium CIWA protocol initiated. DKA protocol initiated. Patient admitted in stable condition. Dr. Latham is my attending. (Lyssa Roman) I was called to the bedside see the patient because an ECG was performed which had a machine interpretation of acute STEMI. When I compare with previous ECG it does not appear to be significantly changed. I discussed case with cardiology and we will trend troponins. The patient not complaining of symptoms of acute coronary syndrome. (Christian Lr) - Lab Data Lab Results 03/12/22 03/12/22 03/12/22 Range/Units 17:35 17:35 19:44 WBC 4.7 (3.8-10.6) k/uL RBC 5.50 (4.30-5.90) m/uL Hgb 17.9 H (13.0-17.5) gm/dL Hct 53.5 H (39.0-53.0) % MCV 97.3 (80.0-100.0) fL MCH 32.5 (25.0-35.0) pg MCHC 33.4 (31.0-37.0) g/dL RDW 12.8 (11.5-15.5) % Plt Count 260 (150-450) k/uL MPV 8.1 Neutrophils % 66 % Lymphocytes % 24 % Monocytes % 6 % Eosinophils % 1 % Basophils % 1 % Neutrophils # 3.1 (1.3-7.7) k/uL Lymphocytes # 1.1 (1.0-4.8) k/uL Monocytes # 0.3 (0-1.0) k/uL Eosinophils # 0.1 (0-0.7) k/uL Basophils # 0.0 (0-0.2) k/uL Sodium 132 L (137-145) mmol/L Potassium 5.6 H (3.5-5.1) mmol/L Chloride 92 L (98-107) mmol/L Carbon Dioxide 9 L* (22-30) mmol/L Anion Gap 31 mmol/L BUN 11 (9-20) mg/dL Creatinine 0.96 (0.66-1.25) mg/dL Est GFR (CKD-EPI)AfAm >90 (>60 ml/min/1.73 sqM) Est GFR (CKD-EPI)NonAf >90 (>60 ml/min/1.73 sqM) Glucose 305 H (74-99) mg/dL POC Glucose (mg/dL) 263 H (70-110) mg/dL POC Glu Conduit Mechanic ID Plasma Lactic Acid Bruno (0.7-2.0) mmol/L Calcium 10.1 (8.4-10.2) mg/dL Total Bilirubin 3.0 H (0.2-1.3) mg/dL AST 84 H (17-59) U/L ALT 68 H (4-49) U/L Alkaline Phosphatase 137 H (38-126) U/L Total Protein 9.5 H (6.3-8.2) g/dL Albumin 6.2 H (3.5-5.0) g/dL Amylase 35 (30-110) U/L Lipase 41 (23-300) U/L Urine Color Urine Appearance (Clear) Urine pH (5.0-8.0) Ur Specific [place] (1.001-1.035) Urine Protein (Negative) Urine Glucose (UA) (Negative) Urine Ketones (Negative) Urine Blood (Negative) Urine Nitrite (Negative) Urine Bilirubin (Negative) Urine Urobilinogen (<2.0) mg/dL Ur Leukocyte Esterase (Negative) Urine RBC (0-5) /hpf Urine WBC (0-5) /hpf Serum Alcohol <10 mg/dL Acetone, Qual (Negative) 03/12/22 03/12/22 03/12/22 Range/Units 19:47 19:47 19:47 WBC (3.8-10.6) k/uL RBC (4.30-5.90) m/uL Hgb (13.0-17.5) gm/dL Hct (39.0-53.0) % MCV (80.0-100.0) fL MCH (25.0-35.0) pg MCHC (31.0-37.0) g/dL RDW (11.5-15.5) % Plt Count (150-450) k/uL MPV Neutrophils % % Lymphocytes % % Monocytes % % Eosinophils % % Basophils % % Neutrophils # (1.3-7.7) k/uL Lymphocytes # (1.0-4.8) k/uL Monocytes # (0-1.0) k/uL Eosinophils # (0-0.7) k/uL Basophils # (0-0.2) k/uL Sodium (137-145) mmol/L Potassium (3.5-5.1) mmol/L Chloride (98-107) mmol/L Carbon Dioxide (22-30) mmol/L Anion Gap mmol/L BUN (9-20) mg/dL Creatinine (0.66-1.25) mg/dL Est GFR (CKD-EPI)AfAm (>60 ml/min/1.73 sqM) Est GFR (CKD-EPI)NonAf (>60 ml/min/1.73 sqM) Glucose (74-99) mg/dL POC Glucose (mg/dL) (70-110) mg/dL POC Glu Conduit Mechanic ID Plasma Lactic Acid Bruno 1.1 (0.7-2.0) mmol/L Calcium (8.4-10.2) mg/dL Total Bilirubin (0.2-1.3) mg/dL AST (17-59) U/L ALT (4-49) U/L Alkaline Phosphatase (38-126) U/L Total Protein (6.3-8.2) g/dL Albumin (3.5-5.0) g/dL Amylase (30-110) U/L Lipase (23-300) U/L Urine Color Light Yellow Urine Appearance Clear (Clear) Urine pH 5.5 (5.0-8.0) Ur Specific [place] 1.021 (1.001-1.035) Urine Protein 2+ H (Negative) Urine Glucose (UA) 4+ H (Negative) Urine Ketones 4+ H (Negative) Urine Blood Small H (Negative) Urine Nitrite Negative (Negative) Urine Bilirubin Negative (Negative) Urine Urobilinogen <2.0 (<2.0) mg/dL Ur Leukocyte Esterase Negative (Negative) Urine RBC <1 (0-5) /hpf Urine WBC <1 (0-5) /hpf Serum Alcohol mg/dL Acetone, Qual Positive (Negative) Disposition Time of Disposition: 20:38 <Lyssa Roman - Last Filed: 03/12/22 20:28> <Christian Lr - Last Filed: 03/16/22 05:15> Clinical Impression: DKA (diabetic ketoacidosis), Epigastric abdominal pain, Nausea & vomiting, Alcoholic ketoacidosis Disposition: ADMITTED IP TO THIS [facility] Condition: Fair
[2022-03-12] MEDS: FOLIC ACID 1 MG TAB PO SCH (19:45)
[2022-03-12 19:50] LABS: Glucose,Whole Blood 263 mg/dL (70-110)
[2022-03-12 19:52] LABS: Appearance,Urine Clear (Clear); Bilirubin,Urine Negative (Negative); Blood,Urine Small (Negative); Color,Urine Light Yellow; Glucose,Urine (UA) 4+ (Negative); Leukocyte Esterase,Urine Negative (Negative); Nitrite,Urine Negative (Negative); PH, Urine 5.5 (5.0-8.0); Protein,Urine 2+ (Negative); RBC,Urine <1 /hpf (0-5); Specific Gravity,Urine 1.021 (1.001-1.035); Urobilinogen,Urine <2.0 mg/dL (<2.0); WBC,Urine <1 /hpf (0-5)
[2022-03-12] MEDS ORDERED: PROCHLORPERAZINE INJ 10 MG/2 ML VIAL IVP STA (20:01)
[2022-03-12 20:22] LABS: Ketones,Urine 4+ (Negative)
[2022-03-12] MEDS ORDERED: chlordiazePOXIDE 25 MG CAP PO PRN (20:24)
[2022-03-12] MEDS ORDERED: SODIUM CHLORIDE 0.9% 1,000 ML IV SCH (20:30)
[2022-03-12] MEDS: INSULIN REGULAR 100 UNIT in SODIUM CHLORIDE 0.9% 100 ML IV SCH (20:50)
[2022-03-12 21:58] LABS: Glucose,Whole Blood 216 mg/dL (70-110)
[2022-03-12 22:45] LABS: Glucose,Whole Blood 221 mg/dL (70-110)
[2022-03-12] MEDS: D5-0.45% NACL WITH KCL 20MEQ/L 1,000 ML IV SCH (23:50)
[2022-03-12 23:58] LABS: VBG PH 7.22 (7.31-7.41)
[2022-03-13 00:05] LABS: Glucose,Whole Blood 164 mg/dL (70-110)
[2022-03-13] MEDS: HYDROmorphone 0.5 MG/0.5 ML SYRINGE IVP PRN ×5 (00:15→20:32)
[2022-03-13 00:50] LABS: African American GFR (CKD) >90 (>60 ml/min/1.73 sqM); Anion Gap 19 mmol/L; Blood Urea Nitrogen 11 mg/dL (9-20); Carbon Dioxide 12 mmol/L (22-30); Chloride 103 mmol/L (98-107); Glucose 168 mg/dL (74-99); Non-African American GFR(CKD) >90 (>60 ml/min/1.73 sqM); Phosphorus 2.5 mg/dL (2.5-4.5); Potassium 3.7 mmol/L (3.5-5.1); Sodium 134 mmol/L (137-145)
[2022-03-13 00:57] LABS: Glucose,Whole Blood 170 mg/dL (70-110)
[2022-03-13 02:04] LABS: Glucose,Whole Blood 158 mg/dL (70-110)
[2022-03-13 03:03] LABS: Glucose,Whole Blood 130 mg/dL (70-110)
[2022-03-13 03:49] LABS: Basophils % (A) 1 %; Eosinophils # (A) 0.1 k/uL (0-0.7); Eosinophils % (A) 3 %; HCT 42.2 % (39.0-53.0); Lymphocytes # (A) 1.6 k/uL (1.0-4.8); Lymphocytes % (A) 42 %; MCH 32.3 pg (25.0-35.0); MCHC 33.9 g/dL (31.0-37.0); MCV 95.4 fL (80.0-100.0); Monocytes # (A) 0.3 k/uL (0-1.0); Monocytes % (A) 9 %; Neutrophils # (A) 1.6 k/uL (1.3-7.7); Neutrophils % (A) 43 %; Platelet Count 193 k/uL (150-450); RBC 4.42 m/uL (4.30-5.90); RDW 12.9 % (11.5-15.5); WBC 3.8 k/uL (3.8-10.6)
[2022-03-13] MEDS: chlordiazePOXIDE 25 MG CAP PO PRN ×5 (04:03→22:59)
[2022-03-13 04:05] LABS: Glucose,Whole Blood 112 mg/dL (70-110)
[2022-03-13 04:07] LABS: HGB 14.3 gm/dL (13.0-17.5)
[2022-03-13 04:10] LABS: ALT 55 U/L (4-49); AST 68 U/L (17-59); African American GFR (CKD) >90 (>60 ml/min/1.73 sqM); Albumin 4.1 g/dL (3.5-5.0); Alkaline Phosphatase 72 U/L (38-126); Anion Gap 12 mmol/L; Blood Urea Nitrogen 12 mg/dL (9-20); Calcium 8.5 mg/dL (8.4-10.2); Carbon Dioxide 18 mmol/L (22-30); Chloride 104 mmol/L (98-107); Glucose 122 mg/dL (74-99); Non-African American GFR(CKD) >90 (>60 ml/min/1.73 sqM); Phosphorus 2.2 mg/dL (2.5-4.5); Potassium 4.1 mmol/L (3.5-5.1); Sodium 134 mmol/L (137-145); Total Bilirubin 2.4 mg/dL (0.2-1.3); Total Protein 6.1 g/dL (6.3-8.2)
[2022-03-13 05:04] LABS: Glucose,Whole Blood 125 mg/dL (70-110)
[2022-03-13 05:59] LABS: Glucose,Whole Blood 85 mg/dL (70-110)
[2022-03-13] MEDS: THIAMINE 100 MG TAB PO SCH ×2 (06:27→16:52)
[2022-03-13] MEDS: D5-0.45% NACL WITH KCL 20MEQ/L 1,000 ML IV SCH ×3 (06:28→20:08)
[2022-03-13 06:57] LABS: Glucose,Whole Blood 94 mg/dL (70-110)
[2022-03-13 07:32] LABS: Glucose,Whole Blood 108 mg/dL (70-110)
[2022-03-13 08:33] LABS: Glucose,Whole Blood 120 mg/dL (70-110)
[2022-03-13] MEDS: FOLIC ACID 1 MG TAB PO SCH (08:44)
[2022-03-13 08:48] LABS: African American GFR (CKD) >90 (>60 ml/min/1.73 sqM); Anion Gap 7 mmol/L; Blood Urea Nitrogen 12 mg/dL (9-20); Carbon Dioxide 24 mmol/L (22-30); Chloride 104 mmol/L (98-107); Glucose 104 mg/dL (74-99); Non-African American GFR(CKD) >90 (>60 ml/min/1.73 sqM); Phosphorus 2.4 mg/dL (2.5-4.5); Potassium 4.5 mmol/L (3.5-5.1); Sodium 135 mmol/L (137-145)
[2022-03-13 09:34] LABS: Glucose,Whole Blood 145 mg/dL (70-110)
[2022-03-13 10:35] LABS: Glucose,Whole Blood 173 mg/dL (70-110)
[2022-03-13 11:46] LABS: Glucose,Whole Blood 221 mg/dL (70-110)
[2022-03-13 12:14] LABS: African American GFR (CKD) >90 (>60 ml/min/1.73 sqM); Anion Gap 8 mmol/L; Blood Urea Nitrogen 12 mg/dL (9-20); Carbon Dioxide 22 mmol/L (22-30); Chloride 103 mmol/L (98-107); Glucose 215 mg/dL (74-99); Non-African American GFR(CKD) >90 (>60 ml/min/1.73 sqM); Phosphorus 2.4 mg/dL (2.5-4.5); Potassium 4.6 mmol/L (3.5-5.1); Sodium 133 mmol/L (137-145)
[2022-03-13 12:38] LABS: Glucose,Whole Blood 251 mg/dL (70-110)
[2022-03-13 12:49] VITALS: BMI 24.3
[2022-03-13 13:52] LABS: Glucose,Whole Blood 241 mg/dL (70-110)
--- NOTE | 2022-03-13 14:38 | HP ---
HISTORY AND PHYSICAL I saw this patient last night in the emergency room on 03/12/2022. He is a 41-year-old white male with diabetes mellitus, alcohol use disorder and chronic pancreatitis who came to the ER with abdominal pain, mid upper gastric pain, vomiting. He has been drinking 30 beers a day for the last two weeks after going sober for 4 months. He drank very little water and was camping for the entire two weeks and he has not taken his insulin for his insulin-dependent diabetes mellitus type 2 for two weeks, also. So between high dose of alcohol, no insulin and possibly some dehydration, he began to have abdominal pain, nausea and vomiting. He came in with alcoholic and diabetic ketoacidosis. Home medications: He is supposed to be on Humalog to scale before meals t.i.d. 5 units, he says, and I think he says 20 units of like Levemir, pantoprazole 20 daily, trazodone 50 daily. ALLERGIES: NO KNOWN DRUG ALLERGIES. Fourteen-point review of systems otherwise negative. PAST MEDICAL HISTORY: Alcoholism, diabetes mellitus, GERD, type 2 diabetes, neuropathy in his feet, diabetic ketoacidosis multiple times with alcohol in the past. I talked to him about addiction medicine and he says he has failed naltrexone. FAMILY HISTORY: Father with diabetes mellitus. Mother negative. PHYSICAL EXAMINATION: Temperature 98.3, pulse 80s to 100s, blood pressure 130s over 70s. Cardiovascular S1, S2. Lungs clear. GI soft. Hematology negative Homans. Psych fair mood and affect. Skinny. He looks his stated age. Hemoglobin is 17.9, hematocrit 53, white count 4.7, sodium 132, potassium 5.6. Acetone is positive. He has acute abdominal pain, possible pancreatitis secondary to alcoholic and diabetic ketoacidosis secondary to dehydration, noncompliance with insulin and alcohol intoxication. see him, put him on DKA protocol. Rehydrate him. CIWA protocol. Please see further orders. Seen in the ER in 03/12/2022. MMODL / IJN: [id number] /
[2022-03-13 14:47] LABS: Glucose,Whole Blood 254 mg/dL (70-110)
[2022-03-13] MEDS: INSULIN REGULAR 100 UNIT in SODIUM CHLORIDE 0.9% 100 ML IV SCH (15:25)
[2022-03-13 16:40] LABS: Glucose,Whole Blood 256 mg/dL (70-110)
[2022-03-13] MEDS: INSULIN DETEMIR (LEVEMIR) 100 UNIT/ML SYR SQ SCH (16:52)
[2022-03-13] MEDS: INSULIN ASPART (NovoLOG) 100 UNIT/ML VIAL SQ SCH ×2 (16:52→20:24)
[2022-03-13 20:19] LABS: Glucose,Whole Blood 345 mg/dL (70-110)
--- NOTE | 2022-03-14 | PN ---
PROGRESS NOTE 41-year-old white male with pancreatitis abdominal pain. We are going to start him on his regular diet today and wean him off insulin scale, put him on Lantus 20 units daily with NovoLog a.c. and q.h.s. Cardiovascular S1-S2. Lungs clear. GI soft. Hematology: Negative Patricia's. Ambulating to the bathroom and back. Prognosis is guarded. Continue with increased oral intake and treat for CIWA protocol. Rehydrate. PROGNOSIS: Guarded. Surgical consult for abdominal pain. MMODL / IJN: [id number] /
[2022-03-14 03:22] LABS: Glucose,Whole Blood 210 mg/dL (70-110)
[2022-03-14] MEDS: HYDROmorphone 0.5 MG/0.5 ML SYRINGE IVP PRN ×5 (03:30→21:05)
[2022-03-14 06:01] LABS: Glucose,Whole Blood 214 mg/dL (70-110)
[2022-03-14] MEDS: INSULIN DETEMIR (LEVEMIR) 100 UNIT/ML SYR SQ SCH (06:30)
[2022-03-14] MEDS: THIAMINE 100 MG TAB PO SCH ×2 (06:30→17:09)
[2022-03-14] MEDS: INSULIN ASPART (NovoLOG) 100 UNIT/ML VIAL SQ SCH ×4 (06:38→20:35)
[2022-03-14] MEDS: chlordiazePOXIDE 25 MG CAP PO PRN ×4 (06:57→23:57)
[2022-03-14 07:35] LABS: Basophils % (A) 1 %; Eosinophils # (A) 0.1 k/uL (0-0.7); Eosinophils % (A) 3 %; HCT 42.8 % (39.0-53.0); HGB 14.1 gm/dL (13.0-17.5); Lymphocytes # (A) 0.9 k/uL (1.0-4.8); Lymphocytes % (A) 26 %; MCH 31.4 pg (25.0-35.0); MCV 95.2 fL (80.0-100.0); Mean Platelet Volume 8.1; Monocytes # (A) 0.2 k/uL (0-1.0); Monocytes % (A) 7 %; Neutrophils # (A) 2.2 k/uL (1.3-7.7); Neutrophils % (A) 62 %; Platelet Count 166 k/uL (150-450); RDW 12.8 % (11.5-15.5); WBC 3.5 k/uL (3.8-10.6)
[2022-03-14 07:53] LABS: ALT 93 U/L (4-49); AST 98 U/L (17-59); African American GFR (CKD) >90 (>60 ml/min/1.73 sqM); Alkaline Phosphatase 85 U/L (38-126); Anion Gap 8 mmol/L; Blood Urea Nitrogen 12 mg/dL (9-20); Calcium 9.3 mg/dL (8.4-10.2); Carbon Dioxide 21 mmol/L (22-30); Chloride 106 mmol/L (98-107); Glucose 229 mg/dL (74-99); Non-African American GFR(CKD) >90 (>60 ml/min/1.73 sqM); Potassium 3.8 mmol/L (3.5-5.1); Sodium 135 mmol/L (137-145); Total Bilirubin 2.7 mg/dL (0.2-1.3)
[2022-03-14] MEDS: FOLIC ACID 1 MG TAB PO SCH (08:15)
[2022-03-14 11:35] LABS: Glucose,Whole Blood 331 mg/dL (70-110)
[2022-03-14 12:33] LABS: Prothrombin Time 10.7 sec (9.0-12.0)
--- NOTE | 2022-03-14 13:05 | P.GSCN ---
History of Present Illness Consult date: 03/14/22 Reason for Consult: Abdominal pain History of present illness: Is a 41-year-old male with history of a call obese. Patient states he was binge drinking. He states he drank approximately 30 beers per day with a fifth of vodka for the last several weeks. Patient is a known history of pancreatic pseudocyst and chronic pancreatitis. Patient complaints of epigastric pain. Past Medical History Past Medical History: Diabetes Mellitus, GERD/Reflux Additional Past Medical History / Comment(s): IDDM pt states he has been told he is type 1 and told he is type II, neuropathy occasionally in bilateral toes/fingers, DKAs, ETOH abuse, past DT's/seizure when withdrawing from alcohol said last sz possibly a year ago, chronic pancreatitis History of Any Multi-Drug Resistant Organisms: None Reported Past Surgical History: No Surgical Hx Reported Additional Past Surgical History / Comment(s): Pt has never had surgery Past Anesthesia/Blood Transfusion Reactions: Unable to Obtain Additional Past Anesthesia/Blood Transfusion Reaction / Comm: Pt has never had surgery. Past Psychological History: Anxiety Additional Psychological History / Comment(s): Pt resides with his girlfriend. He has a glucometer. Smoking Status: Current every day smoker, Vaper Past Alcohol Use History: Abuse, Daily, Heavy Additional Past Alcohol Use History / Comment(s): Pt started smoking in 1995 and smokes approximately 1 cigarettes a day. He states he vapes when he drives. Pt states he used to drink vodka 1/5-1/2 gal/day (it has been 4 months) now he drinks 30 beers/day . Past Drug Use History: None Reported - Past Family History Father Family Medical History: Diabetes Mellitus Mother History Unknown: Yes Additional Family Medical History / Comment(s): Pt does not have contact with his mother. Medications and Allergies Home Medications Medication Instructions Recorded Confirmed Type INSULIN LISPRO (HumaLOG) [humaLOG] See Protocol SQ AC-TID PRN MDD 30 12/30/20 03/12/22 History ALPRAZolam [Xanax] 0.25 mg PO BID PRN 07/22/21 03/12/22 History traZODone HCL 50 mg PO HS PRN 11/21/21 03/12/22 History Insulin Glargine [Lantus Vial] 20 unit SQ DAILY #0 11/22/21 03/12/22 Rx Pantoprazole Sodium 20 mg PO DAILY 03/12/22 03/12/22 History Allergies Allergy/AdvReac Type Severity Reaction Status Date / Time No Known Allergies Allergy Verified 03/12/22 15:04 Surgical - Exam Vital Signs Temp Pulse Resp BP Pulse Ox 98.3 F 104 H 20 132/76 98 03/12/22 15:02 03/12/22 15:02 03/12/22 15:02 03/12/22 15:02 03/12/22 15:02 - General well developed, well nourished, no distress - Eyes PERRL - ENT normal pinna - Neck no masses - Respiratory normal expansion - Cardiovascular Rhythm: regular - Abdomen Tender epigastric area Abdomen: soft, tender Results - Labs 03/14/22 06:53 03/14/22 06:53 Abnormal Lab Results - Last 24 Hours (Table) 03/13/22 03/13/22 03/13/22 Range/Units 13:32 14:37 16:38 WBC (3.8-10.6) k/uL Lymphocytes # (1.0-4.8) k/uL Sodium (137-145) mmol/L Carbon Dioxide (22-30) mmol/L Creatinine (0.66-1.25) mg/dL Glucose (74-99) mg/dL POC Glucose (mg/dL) 241 H 254 H 256 H (70-110) mg/dL Hemoglobin A1c (0.0-6.0) % Total Bilirubin (0.2-1.3) mg/dL AST (17-59) U/L ALT (4-49) U/L Total Protein (6.3-8.2) g/dL 03/13/22 03/14/22 03/14/22 Range/Units 20:15 03:20 05:58 WBC (3.8-10.6) k/uL Lymphocytes # (1.0-4.8) k/uL Sodium (137-145) mmol/L Carbon Dioxide (22-30) mmol/L Creatinine (0.66-1.25) mg/dL Glucose (74-99) mg/dL POC Glucose (mg/dL) 345 H 210 H 214 H (70-110) mg/dL Hemoglobin A1c (0.0-6.0) % Total Bilirubin (0.2-1.3) mg/dL AST (17-59) U/L ALT (4-49) U/L Total Protein (6.3-8.2) g/dL 03/14/22 03/14/22 03/14/22 Range/Units 06:53 06:53 06:53 WBC 3.5 L (3.8-10.6) k/uL Lymphocytes # 0.9 L (1.0-4.8) k/uL Sodium 135 L (137-145) mmol/L Carbon Dioxide 21 L (22-30) mmol/L Creatinine 0.50 L (0.66-1.25) mg/dL Glucose 229 H (74-99) mg/dL POC Glucose (mg/dL) (70-110) mg/dL Hemoglobin A1c 11.7 H (0.0-6.0) % Total Bilirubin 2.7 H (0.2-1.3) mg/dL AST 98 H (17-59) U/L ALT 93 H (4-49) U/L Total Protein 6.0 L (6.3-8.2) g/dL 03/14/22 Range/Units 11:32 WBC (3.8-10.6) k/uL Lymphocytes # (1.0-4.8) k/uL Sodium (137-145) mmol/L Carbon Dioxide (22-30) mmol/L Creatinine (0.66-1.25) mg/dL Glucose (74-99) mg/dL POC Glucose (mg/dL) 331 H (70-110) mg/dL Hemoglobin A1c (0.0-6.0) % Total Bilirubin (0.2-1.3) mg/dL AST (17-59) U/L ALT (4-49) U/L Total Protein (6.3-8.2) g/dL Diabetes panel 03/14/22 03/14/22 Range/Units 06:53 06:53 Sodium 135 L (137-145) mmol/L Potassium 3.8 (3.5-5.1) mmol/L Chloride 106 (98-107) mmol/L Carbon Dioxide 21 L (22-30) mmol/L BUN 12 (9-20) mg/dL Creatinine 0.50 L (0.66-1.25) mg/dL Glucose 229 H (74-99) mg/dL Hemoglobin A1c 11.7 H (0.0-6.0) % Calcium 9.3 (8.4-10.2) mg/dL AST 98 H (17-59) U/L ALT 93 H (4-49) U/L Alkaline Phosphatase 85 (38-126) U/L Total Protein 6.0 L (6.3-8.2) g/dL Albumin 4.0 (3.5-5.0) g/dL Calcium panel 03/14/22 Range/Units 06:53 Calcium 9.3 (8.4-10.2) mg/dL Albumin 4.0 (3.5-5.0) g/dL Pituitary panel 03/14/22 Range/Units 06:53 Sodium 135 L (137-145) mmol/L Potassium 3.8 (3.5-5.1) mmol/L Chloride 106 (98-107) mmol/L Carbon Dioxide 21 L (22-30) mmol/L BUN 12 (9-20) mg/dL Creatinine 0.50 L (0.66-1.25) mg/dL Glucose 229 H (74-99) mg/dL Calcium 9.3 (8.4-10.2) mg/dL Adrenal panel 03/14/22 Range/Units 06:53 Sodium 135 L (137-145) mmol/L Potassium 3.8 (3.5-5.1) mmol/L Chloride 106 (98-107) mmol/L Carbon Dioxide 21 L (22-30) mmol/L BUN 12 (9-20) mg/dL Creatinine 0.50 L (0.66-1.25) mg/dL Glucose 229 H (74-99) mg/dL Calcium 9.3 (8.4-10.2) mg/dL Total Bilirubin 2.7 H (0.2-1.3) mg/dL AST 98 H (17-59) U/L ALT 93 H (4-49) U/L Alkaline Phosphatase 85 (38-126) U/L Total Protein 6.0 L (6.3-8.2) g/dL Albumin 4.0 (3.5-5.0) g/dL Assessment and Plan Assessment: History of a call abuse History of chronic peritonitis History of pancreas pseudocyst. Patient's epigastric pain is due to his chronic hepatitis. Once the patient stable he may benefit from cyst gastrostomy for pseudocyst drainage.
--- NOTE | 2022-03-14 15:10 | US ---
EXAMINATION TYPE: US abdomen limited DATE OF EXAM: 03/14/2022 COMPARISON: Gallbladder ultrasound 11/19/2021, CT abdomen pelvis 11/04/2021 CLINICAL HISTORY: lft elevation. Elevated lft's, epigastric pain, known pancreatic pseudocyst, DKA EXAM MEASUREMENTS: Liver Length: 18.4 cm Gallbladder Wall: 0.2 cm CBD: 0.6 cm Right Kidney: 12.1 x 6.3 x 5.0 cm Pancreas: 5.2 x 4.7 x 4.8 cyst seen Liver: upper limits of normal for size Gallbladder: wnl Evidence for sonographic Arias's sign: no CBD: wnl Right Kidney: wnl IMPRESSION: * No acute abnormality. * Stable pancreatic tail pseudocyst.
[2022-03-14 16:37] LABS: Glucose,Whole Blood 243 mg/dL (70-110)
[2022-03-14 19:59] LABS: Glucose,Whole Blood 335 mg/dL (70-110)
[2022-03-15] MEDS: HYDROmorphone 0.5 MG/0.5 ML SYRINGE IVP PRN ×5 (01:47→20:34)
[2022-03-15] MEDS: chlordiazePOXIDE 25 MG CAP PO PRN ×5 (04:28→20:34)
[2022-03-15 06:05] LABS: Glucose,Whole Blood 306 mg/dL (70-110)
[2022-03-15] MEDS: INSULIN ASPART (NovoLOG) 100 UNIT/ML VIAL SQ SCH ×4 (06:56→20:29)
[2022-03-15] MEDS: THIAMINE 100 MG TAB PO SCH ×2 (06:56→17:26)
[2022-03-15] MEDS: INSULIN DETEMIR (LEVEMIR) 100 UNIT/ML SYR SQ SCH (06:56)
[2022-03-15] MEDS: FOLIC ACID 1 MG TAB PO SCH (09:19)
[2022-03-15 11:26] LABS: Glucose,Whole Blood 294 mg/dL (70-110)
--- NOTE | 2022-03-15 15:46 | P.PN ---
Progress Note - Text Progress Note Date: 03/15/22 Patient [place] stable. He still has complaints of epigastric pain. On exam vital signs are stable. Abdomen soft. Chronic pancreatitis with alcohol exacerbation. Patient is a pseudocyst. Patient will be medically managed. No surgical intervention is planned at this point.
[2022-03-15 16:41] LABS: Glucose,Whole Blood 153 mg/dL (70-110)
[2022-03-15 19:55] LABS: Glucose,Whole Blood 138 mg/dL (70-110)
[2022-03-16] MEDS: HYDROmorphone 0.5 MG/0.5 ML SYRINGE IVP PRN ×6 (00:30→23:58)
[2022-03-16] MEDS: chlordiazePOXIDE 25 MG CAP PO PRN ×5 (05:37→23:58)
[2022-03-16] MEDS: INSULIN DETEMIR (LEVEMIR) 100 UNIT/ML SYR SQ SCH (06:02)
[2022-03-16] MEDS: INSULIN ASPART (NovoLOG) 100 UNIT/ML VIAL SQ SCH ×4 (06:02→20:44)
[2022-03-16 06:13] LABS: Glucose,Whole Blood 497 mg/dL (70-110)
[2022-03-16] MEDS: THIAMINE 100 MG TAB PO SCH ×2 (06:21→16:59)
[2022-03-16] MEDS: FOLIC ACID 1 MG TAB PO SCH (08:06)
[2022-03-16 08:20] LABS: ALT 71 U/L (4-49); AST 45 U/L (17-59); African American GFR (CKD) >90 (>60 ml/min/1.73 sqM); Alkaline Phosphatase 127 U/L (38-126); Blood Urea Nitrogen 14 mg/dL (9-20); Calcium 9.4 mg/dL (8.4-10.2); Carbon Dioxide 27 mmol/L (22-30); Chloride 102 mmol/L (98-107); Glucose 434 mg/dL (74-99); Non-African American GFR(CKD) >90 (>60 ml/min/1.73 sqM); Total Bilirubin 1.2 mg/dL (0.2-1.3); Total Protein 5.9 g/dL (6.3-8.2)
[2022-03-16 08:21] LABS: Basophils % (A) 1 %; Eosinophils # (A) 0.1 k/uL (0-0.7); Eosinophils % (A) 3 %; HCT 41.4 % (39.0-53.0); HGB 13.3 gm/dL (13.0-17.5); Lymphocytes # (A) 1.1 k/uL (1.0-4.8); Lymphocytes % (A) 37 %; MCH 31.5 pg (25.0-35.0); MCV 98.2 fL (80.0-100.0); Mean Platelet Volume 9.3; Monocytes # (A) 0.2 k/uL (0-1.0); Monocytes % (A) 6 %; Neutrophils # (A) 1.5 k/uL (1.3-7.7); Neutrophils % (A) 50 %; Platelet Count 168 k/uL (150-450); RBC 4.21 m/uL (4.30-5.90); RDW 12.8 % (11.5-15.5)
[2022-03-16 08:55] LABS: Anion Gap 6 mmol/L; Sodium 135 mmol/L (137-145)
[2022-03-16 11:50] LABS: Glucose,Whole Blood 165 mg/dL (70-110)
--- NOTE | 2022-03-16 12:33 | P.PN ---
Progress Note - Text Progress Note Date: 03/16/22 Patient has still has complaints of some epigastric pain. He is improved compared to yesterday. On exam vital signs are stable. Abdomen soft. Vital pain Chronic peritonitis a pseudocyst formation. Patient will be medically managed at this time.
[2022-03-16 16:18] LABS: Glucose,Whole Blood 228 mg/dL (70-110)
--- NOTE | 2022-03-16 19:42 | PN ---
PROGRESS NOTE This patient is in DKA, alcoholic ketoacidosis also. He is going through alcohol withdrawal. As mentioned, severely dehydrated on admission. Lots of alcohol in the past. No insulin was given recently. He has been switched over to his oral diabetic medicines. His labs are ordered. His electrolytes are improved. He is too weak to go home, he says. He has elevated liver enzymes, which are improving. Cardiovascular S1, S2. Lungs clear. GI soft. Extremities weak, fatigued; 4/5 strength in his arms. Possible discharge home in the next day or two, as he is improving. Continue current PT/OT. MMODL / IJN: [id number] /
[2022-03-16 20:20] LABS: Glucose,Whole Blood 330 mg/dL (70-110)
[2022-03-17 06:17] LABS: Glucose,Whole Blood 433 mg/dL (70-110)
[2022-03-17] MEDS: INSULIN DETEMIR (LEVEMIR) 100 UNIT/ML SYR SQ SCH (06:28)
[2022-03-17] MEDS: THIAMINE 100 MG TAB PO SCH ×2 (06:28→16:54)
[2022-03-17] MEDS: INSULIN ASPART (NovoLOG) 100 UNIT/ML VIAL SQ SCH ×3 (06:29→16:54)
[2022-03-17] MEDS: chlordiazePOXIDE 25 MG CAP PO PRN ×3 (06:31→15:04)
[2022-03-17] MEDS: HYDROmorphone 0.5 MG/0.5 ML SYRINGE IVP PRN ×3 (06:31→15:04)
[2022-03-17] MEDS: FOLIC ACID 1 MG TAB PO SCH (08:03)
[2022-03-17 09:07] VITALS: RESP 20
[2022-03-17 11:29] LABS: Glucose,Whole Blood 353 mg/dL (70-110)
--- NOTE | 2022-03-17 12:05 | P.PN ---
Progress Note - Text Progress Note Date: 03/17/22 Patient remains stable. His abdominal pain is slightly improved. On exam vital signs are stable. Abdomen soft. Chronic abdominal pain related to chronic pancreatitis and pseudocyst. No surgical intervention is planned. We will sign off please consult if needed.
[2022-03-17 16:40] VITALS: BP 110/69; PULSE 65; TEMP 97.9
[2022-03-17 16:42] LABS: Glucose,Whole Blood 181 mg/dL (70-110)
== END 2022-03-17 18:40 | disposition home or self-care (01) | DRG 638 ==
LOC: EC 14:33 → 3SCARD 20:24
PROVIDERS: ADMIT Family Medicine; ATTEND Family Medicine
DX: E11.10 Type 2 diabetes mellitus with ketoacidosis without coma (principal); F10.239 Alcohol dependence with withdrawal, unspecified; K86.1 Other chronic pancreatitis; K86.3 Pseudocyst of pancreas; E86.0 Dehydration; E11.40 Type 2 diabetes mellitus with diabetic neuropathy, unspecified; F17.210 Nicotine dependence, cigarettes, uncomplicated; F17.290 Nicotine dependence, other tobacco product, uncomplicated; F41.9 Anxiety disorder, unspecified; K21.9 Gastro-esophageal reflux disease without esophagitis; K73.9 Chronic hepatitis, unspecified; T38.3X6A Underdosing of insulin and oral hypoglycemic [antidiabetic] drugs, initial encounter; Z28.310 Unvaccinated for COVID-19; Z91.14 Patient's other noncompliance with medication regimen; Z79.4 Long term (current) use of insulin; Z83.3 Family history of diabetes mellitus
CPT/HCPCS: 36415; 76705; 80051; 80053; 80320; 81001; 82009; 82140; 82150; 82565; 82803; 82947; 83036; 83605; 83690; 84100; 84484; 84520; 85025; 85610; 93005; 96365; 96366; 96375; 96376; 99285

== ENCOUNTER 2022-04-19 20:30 | Inpatient (IN) | payer OTHER ==
[2022-04-19] MEDS ORDERED: SODIUM CHLORIDE 0.9% 1,000 ML IV STA ×3 (21:13→23:32)
[2022-04-19] MEDS ORDERED: SODIUM CHLORIDE 0.9% 500 ML 500 ML IV STA (21:13)
[2022-04-19] MEDS ORDERED: LORazepam 2 MG/ML INJ IV STA (21:13)
[2022-04-19] MEDS ORDERED: PROCHLORPERAZINE INJ 10 MG/2 ML VIAL IVP STA (21:15)
[2022-04-19] MEDS ORDERED: PANTOPRAZOLE 40 MG/10 ML VIAL IVP STA (21:15)
[2022-04-19] MEDS ORDERED: diphenhydrAMINE 50 MG/ML 1 ML VIAL IVP STA (21:15)
--- NOTE | 2022-04-19 21:18 | ED ---
Nausea/Vomiting/Diarrhea HPI - General Chief complaint: Nausea/Vomiting/Diarrhea Stated complaint: diabetes Time Seen by Provider: 04/19/22 21:13 Source: patient, RN notes reviewed, old records reviewed Mode of arrival: ambulatory Limitations: no limitations - History of Present Illness Initial comments: This is a 41-year-old male to the emergency department for evaluation. Patient presents today for evaluation of weakness. Nausea vomiting intractable. Abdominal pain. History of alcoholism alcohol abuse last drink was earlier this morning. Patient denies any new other complaints. MD complaint: nausea, vomiting, abdominal pain -: hour(s) Description of Vomiting: watery, bilious Associated Abdominal Pain: Yes Location: periumbilical, epigastric Radiation: none Severity: moderate Severity scale (1-10): 5 Quality: cramping Consistency: constant Improves with: none Worsens with: eating Context: alcohol abuse Associated Symptoms: loss of appetite, nausea/vomiting, weakness - Related Data Home Medications Medication Instructions Recorded Confirmed INSULIN LISPRO (HumaLOG) [humaLOG] See Protocol SQ AC-TID PRN MDD 30 12/30/20 04/19/22 ALPRAZolam [Xanax] 0.25 mg PO BID PRN 07/22/21 04/19/22 traZODone HCL 50 mg PO HS PRN 11/21/21 04/19/22 Pantoprazole Sodium 20 mg PO DAILY 03/12/22 04/19/22 Insulin Glargine [Lantus Vial] 25 unit SQ DAILY 04/04/22 04/19/22 chlordiazePOXIDE HCl [Librium] 10 mg PO TID PRN 04/19/22 04/19/22 Previous Rx's Medication Instructions Recorded Folic Acid 0.5 mg PO DAILY 15 Days #15 tab 03/17/22 Thiamine [Vitamin B-1] 100 mg PO BID-W/MEALS 15 Days #30 03/17/22 tab Acamprosate Calcium [Campral] 666 mg PO TID #90 tab 04/11/22 traMADol HCl [Ultram] 50 mg PO TID PRN 3 Days #10 tab 04/11/22 Allergies Allergy/AdvReac Type Severity Reaction Status Date / Time No Known Allergies Allergy Verified 04/19/22 22:35 Review of Systems ROS Statement: Those systems with pertinent positive or pertinent negative responses have been documented in the HPI. ROS Other: All systems not noted in ROS Statement are negative. Past Medical History Past Medical History: Diabetes Mellitus, GERD/Reflux Additional Past Medical History / Comment(s): IDDM pt states he has been told he is type 1 and told he is type II, neuropathy occasionally in bilateral toes/fingers, DKAs, ETOH abuse, past DT's/seizure when withdrawing from alcohol said last sz possibly a year ago, chronic pancreatitis History of Any Multi-Drug Resistant Organisms: None Reported Past Surgical History: No Surgical Hx Reported Additional Past Surgical History / Comment(s): Pt has never had surgery Past Anesthesia/Blood Transfusion Reactions: Unable to Obtain Additional Past Anesthesia/Blood Transfusion Reaction / Comment(s): Pt has never had surgery. Past Psychological History: Anxiety Smoking Status: Current every day smoker, Vaper Past Alcohol Use History: Abuse, Daily, Heavy Past Drug Use History: None Reported - Past Family History Father Family Medical History: Diabetes Mellitus Mother History Unknown: Yes Additional Family Medical History / Comment(s): Pt does not have contact with his mother. General Exam Limitations: no limitations General appearance: alert, in no apparent distress, anxious Head exam: Present: atraumatic, normocephalic, normal inspection Eye exam: Present: normal appearance, PERRL, EOMI. Absent: scleral icterus, conjunctival injection, periorbital swelling ENT exam: Present: normal exam, mucous membranes dry Neck exam: Present: normal inspection. Absent: tenderness, meningismus, lymphadenopathy Respiratory exam: Present: normal lung sounds bilaterally. Absent: respiratory distress, wheezes, rales, rhonchi, stridor Cardiovascular Exam: Present: normal rhythm, tachycardia, normal heart sounds. Absent: systolic murmur, diastolic murmur, rubs, gallop, clicks GI/Abdominal exam: Present: soft, normal bowel sounds. Absent: distended, tenderness, guarding, rebound, rigid Extremities exam: Present: normal inspection, full ROM, normal capillary refill. Absent: tenderness, pedal edema, joint swelling, calf tenderness Back exam: Present: normal inspection Neurological exam: Present: alert, oriented X3, CN II-XII intact Psychiatric exam: Present: normal affect, normal mood Skin exam: Present: warm, dry, intact, normal color. Absent: rash Course Vital Signs 08/29/22 08/29/22 08/29/22 20:41 20:43 22:00 Temperature 97.8 F 97.0 F L Pulse Rate 119 H 105 H 95 Respiratory 18 16 Rate Blood Pressure 139/80 133/93 126/88 O2 Sat by Pulse 98 98 98 Oximetry 04/19/22 23:00 Temperature Pulse Rate 93 Respiratory 16 Rate Blood Pressure 109/86 O2 Sat by Pulse 98 Oximetry - Reevaluation(s) Reevaluation #1: 04/19/22 21:48 Medical record is reviewed Reevaluation #2: 04/19/22 23:33 Patient is feeling improved here in the ER Reevaluation #3: 04/19/22 23:33 Patient informed of results and questions answered - Consultations Consultation #1: Spoke with Dr. Slater regarding findings he is agreeable for admission Medical Decision Making - Medical Decision Making 41 male with combined acidosis both AKA in DKA, patient will be admitted for fluid resuscitation and x-ray correction, monitoring of DTs - Lab Data Result diagrams: 04/19/22 21:45 04/19/22 21:45 Lab Results 04/19/22 04/19/22 04/19/22 Range/Units 21:45 21:45 22:00 WBC 5.2 (3.8-10.6) k/uL RBC 4.81 (4.30-5.90) m/uL Hgb 14.7 (13.0-17.5) gm/dL Hct 44.9 (39.0-53.0) % MCV 93.3 (80.0-100.0) fL MCH 30.6 (25.0-35.0) pg MCHC 32.8 (31.0-37.0) g/dL RDW 12.3 (11.5-15.5) % Plt Count 226 (150-450) k/uL MPV 7.6 Neutrophils % 66 % Lymphocytes % 24 % Monocytes % 6 % Eosinophils % 1 % Basophils % 1 % Neutrophils # 3.4 (1.3-7.7) k/uL Lymphocytes # 1.3 (1.0-4.8) k/uL Monocytes # 0.3 (0-1.0) k/uL Eosinophils # 0.1 (0-0.7) k/uL Basophils # 0.1 (0-0.2) k/uL VBG pH (7.31-7.41) VBG pCO2 (37-51) mmHg VBG HCO3 (24-28) mmol/L Sodium 133 L (137-145) mmol/L Potassium 5.3 H (3.5-5.1) mmol/L Chloride 92 L (98-107) mmol/L Carbon Dioxide 9 L* (22-30) mmol/L Anion Gap 32 mmol/L BUN 11 (9-20) mg/dL Creatinine 0.86 (0.66-1.25) mg/dL Est GFR (CKD-EPI)AfAm >90 (>60 ml/min/1.73 sqM) Est GFR (CKD-EPI)NonAf >90 (>60 ml/min/1.73 sqM) Glucose 343 H (74-99) mg/dL Calcium 10.7 H (8.4-10.2) mg/dL Phosphorus 4.3 (2.5-4.5) mg/dL Magnesium 1.7 (1.6-2.3) mg/dL Total Bilirubin 2.6 H (0.2-1.3) mg/dL AST 48 (17-59) U/L ALT 70 H (4-49) U/L Alkaline Phosphatase 163 H (38-126) U/L Total Protein 8.7 H (6.3-8.2) g/dL Albumin 5.6 H (3.5-5.0) g/dL Lipase 32 (23-300) U/L Urine Color Light Yellow Urine Appearance Clear (Clear) Urine pH 5.5 (5.0-8.0) Ur Specific Krebs 1.029 (1.001-1.035) Urine Protein 2+ H (Negative) Urine Glucose (UA) 4+ H (Negative) Urine Ketones 4+ H (Negative) Urine Blood Trace H (Negative) Urine Nitrite Negative (Negative) Urine Bilirubin Negative (Negative) Urine Urobilinogen <2.0 (<2.0) mg/dL Ur Leukocyte Esterase Negative (Negative) Urine RBC 2 (0-5) /hpf Urine WBC <1 (0-5) /hpf Urine Mucus Rare H (None) /hpf Serum Alcohol 12 mg/dL Acetone, Qual Positive (Negative) 04/19/22 Range/Units 22:15 WBC (3.8-10.6) k/uL RBC (4.30-5.90) m/uL Hgb (13.0-17.5) gm/dL Hct (39.0-53.0) % MCV (80.0-100.0) fL MCH (25.0-35.0) pg MCHC (31.0-37.0) g/dL RDW (11.5-15.5) % Plt Count (150-450) k/uL MPV Neutrophils % % Lymphocytes % % Monocytes % % Eosinophils % % Basophils % % Neutrophils # (1.3-7.7) k/uL Lymphocytes # (1.0-4.8) k/uL Monocytes # (0-1.0) k/uL Eosinophils # (0-0.7) k/uL Basophils # (0-0.2) k/uL VBG pH 7.26 L (7.31-7.41) VBG pCO2 28 L (37-51) mmHg VBG HCO3 13 L (24-28) mmol/L Sodium (137-145) mmol/L Potassium (3.5-5.1) mmol/L Chloride (98-107) mmol/L Carbon Dioxide (22-30) mmol/L Anion Gap mmol/L BUN (9-20) mg/dL Creatinine (0.66-1.25) mg/dL Est GFR (CKD-EPI)AfAm (>60 ml/min/1.73 sqM) Est GFR (CKD-EPI)NonAf (>60 ml/min/1.73 sqM) Glucose (74-99) mg/dL Calcium (8.4-10.2) mg/dL Phosphorus (2.5-4.5) mg/dL Magnesium (1.6-2.3) mg/dL Total Bilirubin (0.2-1.3) mg/dL AST (17-59) U/L ALT (4-49) U/L Alkaline Phosphatase (38-126) U/L Total Protein (6.3-8.2) g/dL Albumin (3.5-5.0) g/dL Lipase (23-300) U/L Urine Color Urine Appearance (Clear) Urine pH (5.0-8.0) Ur Specific Krebs (1.001-1.035) Urine Protein (Negative) Urine Glucose (UA) (Negative) Urine Ketones (Negative) Urine Blood (Negative) Urine Nitrite (Negative) Urine Bilirubin (Negative) Urine Urobilinogen (<2.0) mg/dL Ur Leukocyte Esterase (Negative) Urine RBC (0-5) /hpf Urine WBC (0-5) /hpf Urine Mucus (None) /hpf Serum Alcohol mg/dL Acetone, Qual (Negative) Critical Care Time Critical Care Time: Yes Total Critical Care Time: 31 Disposition Clinical Impression: DKA (diabetic ketoacidoses), Hyperglycemia, Nausea and vomiting, Abdominal pain, Alcoholic ketoacidosis Disposition: ADMITTED IP TO THIS [facility] Condition: Fair Is patient prescribed a controlled substance at d/c from ED?: No Referrals: Julien Anderson MD [Primary Care Provider] - 1-2 days Time of Disposition: 23:35
[2022-04-19 22:19] LABS: Basophils # (A) 0.1 k/uL (0-0.2); Basophils % (A) 1 %; Eosinophils # (A) 0.1 k/uL (0-0.7); Eosinophils % (A) 1 %; HCT 44.9 % (39.0-53.0); HGB 14.7 gm/dL (13.0-17.5); Lymphocytes # (A) 1.3 k/uL (1.0-4.8); Lymphocytes % (A) 24 %; MCH 30.6 pg (25.0-35.0); MCHC 32.8 g/dL (31.0-37.0); MCV 93.3 fL (80.0-100.0); Mean Platelet Volume 7.6; Monocytes # (A) 0.3 k/uL (0-1.0); Monocytes % (A) 6 %; Neutrophils # (A) 3.4 k/uL (1.3-7.7); Neutrophils % (A) 66 %; Platelet Count 226 k/uL (150-450); RBC 4.81 m/uL (4.30-5.90); RDW 12.3 % (11.5-15.5); WBC 5.2 k/uL (3.8-10.6)
[2022-04-19 22:22] LABS: Appearance,Urine Clear (Clear); Bilirubin,Urine Negative (Negative); Blood,Urine Trace (Negative); Color,Urine Light Yellow; Glucose,Urine (UA) 4+ (Negative); Leukocyte Esterase,Urine Negative (Negative); Mucus,Urine Rare /hpf; Nitrite,Urine Negative (Negative); PH, Urine 5.5 (5.0-8.0); Protein,Urine 2+ (Negative); RBC,Urine 2 /hpf (0-5); Specific Gravity,Urine 1.029 (1.001-1.035); Urobilinogen,Urine <2.0 mg/dL (<2.0); WBC,Urine <1 /hpf (0-5)
[2022-04-19 22:30] LABS: ALT 70 U/L (4-49); AST 48 U/L (17-59); African American GFR (CKD) >90 (>60 ml/min/1.73 sqM); Albumin 5.6 g/dL (3.5-5.0); Alcohol 12 mg/dL; Alkaline Phosphatase 163 U/L (38-126); Anion Gap 32 mmol/L; Blood Urea Nitrogen 11 mg/dL (9-20); Calcium 10.7 mg/dL (8.4-10.2); Chloride 92 mmol/L (98-107); Glucose 343 mg/dL (74-99); Lipase 32 U/L (23-300); Magnesium 1.7 mg/dL (1.6-2.3); Non-African American GFR(CKD) >90 (>60 ml/min/1.73 sqM); Phosphorus 4.3 mg/dL (2.5-4.5); Potassium 5.3 mmol/L (3.5-5.1); Sodium 133 mmol/L (137-145); Total Bilirubin 2.6 mg/dL (0.2-1.3); Total Protein 8.7 g/dL (6.3-8.2)
[2022-04-19 22:31] LABS: Carbon Dioxide 9 mmol/L (22-30)
[2022-04-19 22:34] LABS: Ketones,Urine 4+ (Negative)
[2022-04-19 22:48] LABS: VBG PH 7.26 (7.31-7.41)
[2022-04-19] MEDS ORDERED: LORazepam 2 MG/ML INJ IV PRN (23:31)
[2022-04-19] MEDS ORDERED: THIAMINE 100 MG/ML 2 ML VIAL IM STA (23:31)
[2022-04-19] MEDS ORDERED: ONDANSETRON 4 MG/2 ML VIAL IVP STA (23:32)
[2022-04-19] MEDS ORDERED: PROCHLORPERAZINE INJ 10 MG/2 ML VIAL IVP PRN (23:32)
[2022-04-19] MEDS ORDERED: SODIUM CHLORIDE 0.9% 1,000 ML IV SCH (23:45)
[2022-04-20 00:20] LABS: Glucose,Whole Blood 314 mg/dL (70-110)
[2022-04-20] MEDS: INSULIN REGULAR 100 UNIT in SODIUM CHLORIDE 0.9% 100 ML IV SCH ×2 (00:20→15:16)
[2022-04-20 00:53] LABS: African American GFR (CKD) >90 (>60 ml/min/1.73 sqM); Anion Gap 23 mmol/L; Blood Urea Nitrogen 11 mg/dL (9-20); Carbon Dioxide 11 mmol/L (22-30); Chloride 100 mmol/L (98-107); Glucose 313 mg/dL (74-99); Non-African American GFR(CKD) >90 (>60 ml/min/1.73 sqM); Potassium 4.8 mmol/L (3.5-5.1); Sodium 134 mmol/L (137-145)
[2022-04-20] MEDS: LORazepam 2 MG/ML INJ IV PRN ×7 (00:57→22:18)
[2022-04-20] MEDS: KETOROLAC 15 MG/ML 1 ML VIAL IVP PRN ×4 (00:57→21:45)
[2022-04-20 01:01] LABS: Glucose,Whole Blood 299 mg/dL (70-110)
[2022-04-20] MEDS ORDERED: THIAMINE 100 MG/ML 2 ML VIAL IM STA (01:17)
[2022-04-20] MEDS: D5-0.45% NACL WITH KCL 20MEQ/L 1,000 ML IV SCH ×3 (01:55→15:17)
[2022-04-20 02:01] LABS: Glucose,Whole Blood 218 mg/dL (70-110)
[2022-04-20 03:01] LABS: Glucose,Whole Blood 227 mg/dL (70-110)
[2022-04-20 03:59] LABS: Glucose,Whole Blood 213 mg/dL (70-110)
[2022-04-20 04:21] LABS: African American GFR (CKD) >90 (>60 ml/min/1.73 sqM); Anion Gap 15 mmol/L; Blood Urea Nitrogen 13 mg/dL (9-20); Carbon Dioxide 16 mmol/L (22-30); Chloride 105 mmol/L (98-107); Glucose 194 mg/dL (74-99); Non-African American GFR(CKD) >90 (>60 ml/min/1.73 sqM); Potassium 3.7 mmol/L (3.5-5.1); Sodium 136 mmol/L (137-145)
[2022-04-20 05:03] LABS: Glucose,Whole Blood 191 mg/dL (70-110)
[2022-04-20 06:00] LABS: Glucose,Whole Blood 138 mg/dL (70-110)
[2022-04-20] MEDS: THIAMINE 100 MG TAB PO SCH ×2 (06:36→16:55)
[2022-04-20 07:04] LABS: Glucose,Whole Blood 135 mg/dL (70-110)
[2022-04-20 08:03] LABS: Glucose,Whole Blood 92 mg/dL (70-110)
[2022-04-20 08:14] LABS: African American GFR (CKD) >90 (>60 ml/min/1.73 sqM); Anion Gap 12 mmol/L; Blood Urea Nitrogen 13 mg/dL (9-20); Carbon Dioxide 21 mmol/L (22-30); Chloride 105 mmol/L (98-107); Glucose 102 mg/dL (74-99); Non-African American GFR(CKD) >90 (>60 ml/min/1.73 sqM); Phosphorus 2.2 mg/dL (2.5-4.5); Potassium 4.1 mmol/L (3.5-5.1); Sodium 138 mmol/L (137-145)
[2022-04-20 08:33] LABS: Glucose,Whole Blood 88 mg/dL (70-110)
[2022-04-20 09:05] LABS: Glucose,Whole Blood 75 mg/dL (70-110)
[2022-04-20 09:36] LABS: Glucose,Whole Blood 91 mg/dL (70-110)
[2022-04-20 10:08] LABS: Glucose,Whole Blood 154 mg/dL (70-110)
[2022-04-20 11:05] LABS: Glucose,Whole Blood 178 mg/dL (70-110)
[2022-04-20 12:12] LABS: African American GFR (CKD) >90 (>60 ml/min/1.73 sqM); Anion Gap 12 mmol/L; Blood Urea Nitrogen 14 mg/dL (9-20); Calcium 9.1 mg/dL (8.4-10.2); Carbon Dioxide 21 mmol/L (22-30); Chloride 103 mmol/L (98-107); Glucose 179 mg/dL (74-99); Non-African American GFR(CKD) >90 (>60 ml/min/1.73 sqM); Potassium 4.5 mmol/L (3.5-5.1); Sodium 136 mmol/L (137-145)
[2022-04-20 12:13] LABS: Glucose,Whole Blood 196 mg/dL (70-110)
[2022-04-20] MEDS: HYDROmorphone 0.5 MG/0.5 ML SYRINGE IVP PRN ×3 (12:30→23:55)
[2022-04-20 13:04] LABS: Glucose,Whole Blood 223 mg/dL (70-110)
[2022-04-20 13:28] VITALS: BMI 22.9
[2022-04-20 14:05] LABS: Glucose,Whole Blood 255 mg/dL (70-110)
[2022-04-20 15:11] LABS: Glucose,Whole Blood 253 mg/dL (70-110)
[2022-04-20 16:08] LABS: Glucose,Whole Blood 214 mg/dL (70-110)
[2022-04-20 16:52] LABS: African American GFR (CKD) >90 (>60 ml/min/1.73 sqM); Anion Gap 11 mmol/L; Blood Urea Nitrogen 14 mg/dL (9-20); Calcium 9.5 mg/dL (8.4-10.2); Carbon Dioxide 24 mmol/L (22-30); Chloride 101 mmol/L (98-107); Glucose 219 mg/dL (74-99); Non-African American GFR(CKD) >90 (>60 ml/min/1.73 sqM); Potassium 4.6 mmol/L (3.5-5.1); Sodium 136 mmol/L (137-145)
[2022-04-20 17:04] LABS: Glucose,Whole Blood 174 mg/dL (70-110)
[2022-04-20 18:19] LABS: Glucose,Whole Blood 141 mg/dL (70-110)
[2022-04-20 19:03] LABS: Glucose,Whole Blood 135 mg/dL (70-110)
[2022-04-20 20:01] LABS: Glucose,Whole Blood 147 mg/dL (70-110)
[2022-04-20] MEDS ORDERED: ALPRAZolam 0.25 MG TAB PO PRN (20:10)
[2022-04-20 20:41] LABS: African American GFR (CKD) >90 (>60 ml/min/1.73 sqM); Anion Gap 10 mmol/L; Blood Urea Nitrogen 14 mg/dL (9-20); Calcium 9.3 mg/dL (8.4-10.2); Carbon Dioxide 21 mmol/L (22-30); Chloride 104 mmol/L (98-107); Glucose 139 mg/dL (74-99); Non-African American GFR(CKD) >90 (>60 ml/min/1.73 sqM); Potassium 3.9 mmol/L (3.5-5.1); Sodium 135 mmol/L (137-145)
[2022-04-20] MEDS ORDERED: INSULIN DETEMIR (LEVEMIR) 100 UNIT/ML SYR SQ ONE (20:45)
[2022-04-20] MEDS: ACAMPROSATE CALCIUM 333 MG TABLET.DR PO SCH (21:39)
[2022-04-20] MEDS: traZODone HCL 50 MG TAB PO PRN (23:55)
[2022-04-21] MEDS ORDERED: LORazepam 2 MG/ML INJ ONE (02:21)
[2022-04-21 06:23] LABS: Glucose,Whole Blood 273 mg/dL (70-110)
[2022-04-21] MEDS: PANTOPRAZOLE 40 MG TABLET PO SCH (06:33)
[2022-04-21] MEDS: THIAMINE 100 MG TAB PO SCH ×2 (06:33→17:00)
[2022-04-21] MEDS: HYDROmorphone 0.5 MG/0.5 ML SYRINGE IVP PRN ×3 (06:49→20:46)
[2022-04-21] MEDS: INSULIN ASPART (NovoLOG) 100 UNIT/ML VIAL SQ SCH ×4 (06:50→20:43)
[2022-04-21] MEDS ORDERED: THIAMINE 100 MG TAB PO SCH (07:30)
[2022-04-21 08:02] LABS: Basophils % (A) 1 %; Eosinophils # (A) 0.2 k/uL (0-0.7); Eosinophils % (A) 3 %; HCT 46.3 % (39.0-53.0); HGB 15.2 gm/dL (13.0-17.5); Lymphocytes # (A) 1.3 k/uL (1.0-4.8); Lymphocytes % (A) 27 %; MCH 30.9 pg (25.0-35.0); MCHC 32.7 g/dL (31.0-37.0); MCV 94.3 fL (80.0-100.0); Mean Platelet Volume 8.2; Monocytes # (A) 0.2 k/uL (0-1.0); Monocytes % (A) 5 %; Neutrophils # (A) 3.1 k/uL (1.3-7.7); Neutrophils % (A) 63 %; Platelet Count 198 k/uL (150-450); RBC 4.91 m/uL (4.30-5.90); RDW 12.6 % (11.5-15.5); WBC 4.9 k/uL (3.8-10.6)
[2022-04-21 08:42] LABS: ALT 48 U/L (4-49); AST 47 U/L (17-59); African American GFR (CKD) >90 (>60 ml/min/1.73 sqM); Albumin 4.1 g/dL (3.5-5.0); Alkaline Phosphatase 91 U/L (38-126); Anion Gap 13 mmol/L; Blood Urea Nitrogen 15 mg/dL (9-20); Calcium 9.5 mg/dL (8.4-10.2); Carbon Dioxide 22 mmol/L (22-30); Chloride 102 mmol/L (98-107); Glucose 278 mg/dL (74-99); Non-African American GFR(CKD) >90 (>60 ml/min/1.73 sqM); Sodium 137 mmol/L (137-145); Total Bilirubin 2.7 mg/dL (0.2-1.3); Total Protein 6.3 g/dL (6.3-8.2)
[2022-04-21] MEDS: ACAMPROSATE CALCIUM 333 MG TABLET.DR PO SCH ×3 (09:45→20:28)
[2022-04-21] MEDS: LORazepam 2 MG/ML INJ IV PRN ×2 (09:45→11:52)
[2022-04-21] MEDS: FOLIC ACID 1 MG TAB PO SCH (09:45)
[2022-04-21] MEDS: KETOROLAC 15 MG/ML 1 ML VIAL IVP PRN (09:51)
[2022-04-21 11:41] LABS: Glucose,Whole Blood 224 mg/dL (70-110)
[2022-04-21] MEDS: INSULIN DETEMIR (LEVEMIR) 100 UNIT/ML SYR SQ SCH (11:59)
[2022-04-21] MEDS ORDERED: LORazepam 1 MG/0.5 ML VIAL IV PRN (12:37)
[2022-04-21 16:54] LABS: Glucose,Whole Blood 157 mg/dL (70-110)
[2022-04-21] MEDS: LORazepam 1 MG/0.5 ML VIAL IV PRN ×3 (17:01→23:53)
[2022-04-21 20:44] LABS: Glucose,Whole Blood 143 mg/dL (70-110)
[2022-04-21] MEDS: traZODone HCL 50 MG TAB PO PRN (23:53)
--- NOTE | 2022-04-22 01:27 | HP ---
HISTORY AND PHYSICAL HISTORY OF PRESENT ILLNESS: Seen in the floor on 04/20/2022, he is a white male who came to the emergency room due to drinking for 6 days, heavy. He has nausea, vomiting, intractable abdominal pain, history of pancreatic pseudocyst. He has alcoholism, alcohol abuse. Denied any new complaints. He was in DKA protocol but pain for pancreatitis. REVIEW OF SYSTEMS: 14-point review of systems positive for social issues, severe anxiety, depression, triggering him to drink, insulin-dependent diabetes mellitus type 1, GERD, alcoholism, alcohol dependence. MEDICATIONS: See list. ALLERGIES: Negative. FAMILY HISTORY: Father, diabetes mellitus. Mother, negative, no contact. PHYSICAL EXAMINATION: VITAL SIGNS: Heart rate has been 105 to 119, temp 97 to 98, respiratory rate 16 to 18. CARDIOVASCULAR: S1, S2. LUNGS: Clear. GI: Soft. HEMATOLOGY: Negative Homans. INTEGUMENT: Dry skin turgor, dry mucous membranes. NEUROLOGIC: Cranial nerves are intact. Mild tremor. Blood pressure 109 over low 80s. ASSESSMENT AND PLAN: He has combined acidosis, alcoholic ketoacidosis and diabetic ketoacidosis. Fluid resuscitation. Diabetic ketoacidosis protocol, switched to his home insulin with 7 units with meals and Lantus 25 units at night. Continue to rehydrate. PT/OT. CIWA protocol for alcohol withdrawal. Liver enzymes are elevated secondary to chronic pancreatitis and elevated bilirubin secondary to chronic pancreatitis. His serum acetone positive. For diabetic ketoacidosis, continue current treatment, his prognosis is guarded. Depression, alcohol withdrawal, medications will be continued, prognosis guarded. MMODL / IJN: [id number] /
[2022-04-22] MEDS: LORazepam 1 MG/0.5 ML VIAL IV PRN ×5 (02:13→20:41)
[2022-04-22] MEDS: traMADol 50 MG TAB PO PRN (02:17)
[2022-04-22 06:12] LABS: Glucose,Whole Blood 277 mg/dL (70-110)
[2022-04-22] MEDS: INSULIN DETEMIR (LEVEMIR) 100 UNIT/ML SYR SQ SCH (06:17)
[2022-04-22] MEDS: INSULIN ASPART (NovoLOG) 100 UNIT/ML VIAL SQ SCH ×4 (06:17→22:27)
[2022-04-22] MEDS: PANTOPRAZOLE 40 MG TABLET PO SCH (06:17)
[2022-04-22] MEDS: THIAMINE 100 MG TAB PO SCH ×2 (06:19→17:59)
[2022-04-22] MEDS: HYDROmorphone 0.5 MG/0.5 ML SYRINGE IVP PRN ×3 (06:20→22:24)
--- NOTE | 2022-04-22 07:03 | PN ---
PROGRESS NOTE SUBJECTIVE: Anion gap is closed. He is back on his home medications, being treated for detox protocol, consistent carb diet. Sugar has been running 100s to 200s. White count 4.9, hemoglobin 515.2, BUN 15, creatinine 0.61, sodium 137, potassium 4.0. Vitals are good. Oxygen is 98 on room air. Blood pressure 120s/80s, 97.9, pulse 89, respiratory rate 16 to 18. Appears flat mood and affect. Complaining of mild abdominal pain. Labs are all reviewed are improved. He has elevated bilirubin of 2.7. Possibly, we can do an MRI of his abdomen to make sure were not missing anything for his liver, possibly GI consult with Dr. Eubanks, possibly an MRI of the abdomen. Continue with current treatments. PROGNOSIS: Guarded. FOLLOWUP: Please see further orders. MMODL / IJN: [id number] /
[2022-04-22] MEDS: FOLIC ACID 1 MG TAB PO SCH (08:54)
[2022-04-22] MEDS: ACAMPROSATE CALCIUM 333 MG TABLET.DR PO SCH ×3 (08:54→22:24)
[2022-04-22 11:52] LABS: Glucose,Whole Blood 151 mg/dL (70-110)
[2022-04-22] MEDS: KETOROLAC 15 MG/ML 1 ML VIAL IVP PRN ×2 (11:53→18:36)
--- NOTE | 2022-04-22 13:24 | XR ---
EXAMINATION TYPE: XR orbit pre-MRI foreign body DATE OF EXAM: 04/22/2022 COMPARISON: NONE HISTORY: Pre-MRI orbit TECHNIQUE: 3 views submitted FINDINGS: Osseous structures intact. No metallic foreign body overlying the orbits. IMPRESSION: No evidence of metallic foreign body overlying the orbits.
[2022-04-22 16:35] LABS: Glucose,Whole Blood 158 mg/dL (70-110)
[2022-04-22 20:44] VITALS: RESP 16
[2022-04-22 21:32] LABS: Glucose,Whole Blood 149 mg/dL (70-110)
[2022-04-22] MEDS: traZODone HCL 50 MG TAB PO PRN (22:24)
[2022-04-23] MEDS: LORazepam 1 MG/0.5 ML VIAL IV PRN ×2 (00:17→09:18)
[2022-04-23] MEDS: ONDANSETRON 4 MG/2 ML VIAL IVP PRN ×2 (00:17→16:02)
[2022-04-23] MEDS: traMADol 50 MG TAB PO PRN ×2 (01:01→13:49)
[2022-04-23] MEDS: HYDROmorphone 0.5 MG/0.5 ML SYRINGE IVP PRN (04:58)
[2022-04-23 06:15] LABS: Glucose,Whole Blood 264 mg/dL (70-110)
[2022-04-23] MEDS: THIAMINE 100 MG TAB PO SCH ×2 (06:40→17:19)
[2022-04-23] MEDS: PANTOPRAZOLE 40 MG TABLET PO SCH (06:40)
[2022-04-23] MEDS: INSULIN DETEMIR (LEVEMIR) 100 UNIT/ML SYR SQ SCH (06:40)
[2022-04-23] MEDS: INSULIN ASPART (NovoLOG) 100 UNIT/ML VIAL SQ SCH ×3 (06:41→17:18)
[2022-04-23 07:10] LABS: Basophils % (A) 1 %; Eosinophils # (A) 0.1 k/uL (0-0.7); Eosinophils % (A) 4 %; HGB 13.3 gm/dL (13.0-17.5); Lymphocytes # (A) 1.2 k/uL (1.0-4.8); Lymphocytes % (A) 34 %; MCH 31.5 pg (25.0-35.0); MCHC 33.1 g/dL (31.0-37.0); MCV 95.2 fL (80.0-100.0); Mean Platelet Volume 8.7; Monocytes # (A) 0.2 k/uL (0-1.0); Monocytes % (A) 4 %; Neutrophils % (A) 56 %; Platelet Count 146 k/uL (150-450); RBC 4.21 m/uL (4.30-5.90); RDW 12.4 % (11.5-15.5); WBC 3.6 k/uL (3.8-10.6)
[2022-04-23 07:24] LABS: ALT 53 U/L (4-49); AST 47 U/L (17-59); African American GFR (CKD) >90 (>60 ml/min/1.73 sqM); Albumin 3.7 g/dL (3.5-5.0); Alkaline Phosphatase 78 U/L (38-126); Anion Gap 8 mmol/L; Blood Urea Nitrogen 17 mg/dL (9-20); Calcium 8.9 mg/dL (8.4-10.2); Carbon Dioxide 26 mmol/L (22-30); Chloride 99 mmol/L (98-107); Glucose 265 mg/dL (74-99); Non-African American GFR(CKD) >90 (>60 ml/min/1.73 sqM); Potassium 4.1 mmol/L (3.5-5.1); Sodium 133 mmol/L (137-145); Total Bilirubin 3.1 mg/dL (0.2-1.3); Total Protein 5.6 g/dL (6.3-8.2)
[2022-04-23] MEDS: FOLIC ACID 1 MG TAB PO SCH (09:17)
[2022-04-23] MEDS: ACAMPROSATE CALCIUM 333 MG TABLET.DR PO SCH ×2 (11:09→16:34)
[2022-04-23 11:38] LABS: Glucose,Whole Blood 145 mg/dL (70-110)
--- NOTE | 2022-04-23 13:38 | MR ---
EXAMINATION TYPE: MR abdomen wo/w con DATE OF EXAM: 04/23/2022 COMPARISON: Ultrasound abdomen April 09, 2022 and older studies including CT October 25, 2021 HISTORY: Elevated bilirubin. CONTRAST: Standard multiplanar, multisequence MRI departmental protocol images were obtained without contrast a nd with 7 mL intravenous Gadavist gadolinium contrast. Imaging performed of the abdomen focusing on the liver. FINDINGS: Evaluation slightly suboptimal as patient unable to hold breath. Liver: Liver remains normal in size. There is not as prominent signal dropout as suspected on in and out of phase imaging when correlating with prior CTs. Gallbladder appears within normal limits withou t intraluminal gallstones. There is no concerning solid or cystic intrahepatic mass. Incidental 4 mm benign-appearing thin-walled cyst posterior right hepatic lobe axial image 30. Additional punctate th in-walled cysts scattered throughout the liver are present seen best on coronal images. No intrahepat ic or extrahepatic biliary dilatation is noted. Other: Lung bases remain clear. The spleen and both adrenal glands remain within normal limits. There is no hydronephrosis seen bilaterally. There is subcentimeter roughly 6 mm round T1 hyperintense T2 hypointense lesion left kidney axial image 86 consistent with tiny hemorrhagic or proteinaceous cyst. Pancreas not well-visualized due to little intra-abdominal fat and chronic pancreatitis on CT with d iffuse calcifications present. Persistent and fairly stable thin walled cyst in the pancreatic body m easuring 4.9 x 3.7 cm axial image 41 x 4.2 cm craniocaudal dimension coronal image 19. No suspicious enhancement seen. No suspicious small or large bowel dilatation. Osseous structures are intact. IMPRESSION: 1. No concerning intrahepatic mass or biliary dilatation identified. Numerous tiny thin-walled cysts are present on MRI. 2. Evidence of chronic pancreatitis redemonstrated with stable 4.9 cm thin-walled cyst or cystic lesi on in the pancreatic body consistent with pseudocyst.
[2022-04-23 16:46] LABS: Glucose,Whole Blood 284 mg/dL (70-110)
[2022-04-23 16:58] VITALS: BP 123/80; TEMP 98.2
[2022-04-23 17:35] VITALS: PULSE 87
--- NOTE | 2022-04-27 22:04 | CDI ---
Documentation Clarification Form Date: 04/27/2022 09:49:12 PM From: Annemarie Navarro Phone: Admit Date: 04/19/2022 11:31:00 PM Patient Name: Santos Martino Visit Number: [id number] Discharge Date: 04/23/2022 05:41:00 PM ATTENTION: The Clinical Documentation Specialists (CDI) and [facility] Coding Staff appreciate your assistance in clarifying documentation. Please respond to the clarification below the line at the bottom and electronically sign. The CDI & [facility] Coding staff will review the response and follow-up if needed. Please note: Queries are made part of the Legal Health Record. If you have any questions, please contact the author of this message via ITS. Dr. Julien Anderson Chronic Pancreatitis is documented ED Note and patient is noted to have alcohol abuse per ED Note. Please clarify if there is a relationship between the diagnoses. History/Risk Factors: 41yo M, ETOH abuse, pancreatitis, DKA, vapes, Clinical Indicators: Radiology: Evidence of chronic pancreatitis redemonstrated with stable 4.9 cm thin- walled cyst or cystic lesion in the pancreatic body consistent with pseudocyst. Lipase: 32 (23-300) U/L Treatment: DKA protocol, switched to his home insulin with 7 units with meals and Lantus 25 units at night. Continue to rehydrate. PT/OT.CIWA protocol for alcohol withdrawal. Liver enzymes are elevated secondary to chronic pancreatitis and elevated bilirubin secondary to chronic pancreatitis. His serum acetone positive. For DKA, continue current treatment Please clarify the relationship, if any, which is clinically appropriate for this patient: [ ] Chronic Pancreatitis is due to alcohol abuse [ ] Chronic Pancreatitis is not due to alcohol abuse [ ] Other explanation of clinical findings (please specify) [ ] Unable to determine (no explanation for clinical findings) (Template Last Revised: October 2020) MTDD
--- NOTE | 2022-04-27 22:14 | CDI ---
Documentation Clarification Form Date: 04/27/2022 10:04:53 PM From: Annemarie Navarro Phone: Admit Date: 04/19/2022 11:31:00 PM Patient Name: Santos Martino Visit Number: [id number] Discharge Date: 04/23/2022 05:41:00 PM ATTENTION: The Clinical Documentation Specialists (CDI) and [facility] Coding Staff appreciate your assistance in clarifying documentation. Please respond to the clarification below the line at the bottom and electronically sign. The CDI & [facility] Coding staff will review the response and follow-up if needed. Please note: Queries are made part of the Legal Health Record. If you have any questions, please contact the author of this message via ITS. Dr. Julien Anderson Diabetes is documented DKA per ED Note. Additional specificity regarding the diabetes diagnosis is requested. History/Risk Factors: 41yo M, ETOH abuse, pancreatitis, DKA (IDDM pt. states he has been told he is type 1 and told he is type II), jailyn, Clinical Indicators: 04/23 04/21 04/19 Glucose (mg/dL) 265H 278H 343H Glucose: 343 H (74-99) mg/dL Treatment: Anion gap is closed. He is back on his home medications, being treated for detox protocol, consistent carb diet. Sugar has been running 100s to 200s.White count 4.9, hemoglobin 515.2, BUN 15, creatinine 0.61, sodium 137, potassium 4.0.Vitals are good. Please clarify the type of diabetes, if known: [ ] Diabetes Type 1 [ ] Diabetes Type 2 [ ] Other, please specify [ ] Unable to Determine (Template Last Revised: October 2020) MTDD
--- NOTE | 2022-04-30 04:47 | PN ---
PROGRESS NOTE ADDENDUM: Chronic pancreatitis due to alcohol abuse, and type 2 diabetes. MMGUERDAL / IJN: [id number] /
== END 2022-04-23 17:41 | disposition home or self-care (01) | DRG 638 ==
LOC: EC 20:30 → 3SCARD 23:31
PROVIDERS: ADMIT Family Medicine; ATTEND Family Medicine
DX: E11.10 Type 2 diabetes mellitus with ketoacidosis without coma (principal); K86.0 Alcohol-induced chronic pancreatitis; K86.3 Pseudocyst of pancreas; R17 Unspecified jaundice; F32.A Depression, unspecified; F10.10 Alcohol abuse, uncomplicated; E11.42 Type 2 diabetes mellitus with diabetic polyneuropathy; F41.9 Anxiety disorder, unspecified; K21.9 Gastro-esophageal reflux disease without esophagitis; F17.290 Nicotine dependence, other tobacco product, uncomplicated; Y90.0 Blood alcohol level of less than 20 mg/100 ml; Z79.899 Other long term (current) drug therapy; Z79.4 Long term (current) use of insulin; Z83.3 Family history of diabetes mellitus
CPT/HCPCS: 36415; 70030; 74183; 80048; 80051; 80053; 80320; 81001; 82009; 82565; 82803; 82947; 83690; 83735; 84100; 84520; 85025; 96361; 96374; 96375; 99291

== ENCOUNTER 2022-04-24 22:04 | Emergency (ER) | payer OTHER ==
[~2022-04-24 22:04] MED LIST: THIAMINE 100 MG TAB PO SCH
[2022-04-24 22:55] VITALS: RESP 18; TEMP 98.4
[2022-04-24] MEDS ORDERED: LORazepam 1 MG TAB PO STA (23:57)
[2022-04-24] MEDS ORDERED: LORazepam 2 MG/ML INJ IV PRN ×2 (23:57)
[2022-04-25] MEDS ORDERED: THIAMINE 100 MG/ML 2 ML VIAL IM ONE
--- NOTE | 2022-04-25 00:01 | ED ---
General Adult HPI - General Source: patient, RN notes reviewed, old records reviewed Mode of arrival: ambulatory <Jose Guy - Last Filed: 04/25/22 07:06> <Ralph Batista - Last Filed: 04/25/22 19:47> - General Chief complaint: Psychiatric Symptoms Stated complaint: Medication issue-Mental health eval Time Seen by Provider: 04/24/22 23:20 - History of Present Illness Initial comments: Patient is a 41-year-old male with past medical history remarkable for alcohol abuse, diabetes, DKA, suicidal ideations who is here frequently for similar complaints presents emergency Department complaining of worsening suicidal ideation since his last admission. States he is having worsening suicidal thoughts. States is a plan with everything that he sees. Denies any recent attempts. Was recently discharged from the hospital after a stay for DKA. States he is feeling better in terms of his DKA, stating that he has been compliant with medications, denies any nausea, vomiting, abdominal pain. Did drink 1 fifth of liquor today. Denies any drug use. Denies any chest pain, shortness of breath. His no other acute complaints at this time. Has a history of alcohol withdrawals. Denies any current withdrawal symptoms. Presents over concern for suicidal ideations. Denies any homicidal ideations, attempts, plans. Denies any visual or auditory hallucinations. Believes the suicidal ideations may be related to a new medication that he was prescribed, please uncertain. He is not sure which medication might be causing his symptoms. (Jose Guy) - Related Data Home Medications Medication Instructions Recorded Confirmed INSULIN LISPRO (HumaLOG) [humaLOG] See Protocol SQ AC-TID PRN MDD 30 12/30/20 04/25/22 ALPRAZolam [Xanax] 0.25 mg PO BID PRN 07/22/21 04/25/22 traZODone HCL 50 mg PO HS PRN 11/21/21 04/25/22 Pantoprazole Sodium 20 mg PO DAILY 03/12/22 04/25/22 Insulin Glargine [Lantus Vial] 25 unit SQ DAILY 04/04/22 04/25/22 Previous Rx's Medication Instructions Recorded Folic Acid 0.5 mg PO DAILY 15 Days #15 tab 03/17/22 Thiamine [Vitamin B-1] 100 mg PO BID-W/MEALS 15 Days #30 03/17/22 tab Acamprosate Calcium [Campral] 666 mg PO TID #90 tab 04/11/22 Allergies Allergy/AdvReac Type Severity Reaction Status Date / Time No Known Allergies Allergy Verified 04/25/22 10:33 Review of Systems ROS Other: All systems not noted in ROS Statement are negative. <Jose Guy - Last Filed: 04/25/22 07:06> ROS Other: All systems not noted in ROS Statement are negative. <Ralph Batista - Last Filed: 04/25/22 19:47> ROS Statement: Those systems with pertinent positive or pertinent negative responses have been documented in the HPI. Review of Systems: CONST: Denies fever EYES: Denies blurry vision ENT: Denies nasal congestion C/V: Denies Chest pain RESP: Denies shortness of breath GI: Denies abdominal pain : Denies dysuria SKIN: Denies rash. MSK: Denies joint pain. NEURO: Denies headache PSYCH: Denies homicidal ideations/plans/attempts. Denies visual or auditory hallucinations. He endorses suicidal ideations, plans. Denies attempts. (Jose Guy) Past Medical History Past Medical History: Diabetes Mellitus, GERD/Reflux Additional Past Medical History / Comment(s): IDDM pt states he has been told he is type 1 and told he is type II, neuropathy occasionally in bilateral toes/fingers, DKAs, ETOH abuse, past DT's/seizure when withdrawing from alcohol said last sz possibly a year ago, chronic pancreatitis History of Any Multi-Drug Resistant Organisms: None Reported Past Surgical History: No Surgical Hx Reported Additional Past Surgical History / Comment(s): Pt has never had surgery Past Anesthesia/Blood Transfusion Reactions: Unable to Obtain Additional Past Anesthesia/Blood Transfusion Reaction / Comment(s): Pt has never had surgery. Past Psychological History: Anxiety Smoking Status: Current every day smoker, Vaper Past Alcohol Use History: Abuse, Daily, Heavy Past Drug Use History: None Reported - Past Family History Father Family Medical History: Diabetes Mellitus Mother History Unknown: Yes Additional Family Medical History / Comment(s): Pt does not have contact with his mother. <Jose Guy - Last Filed: 04/25/22 07:06> General Exam <Jose Guy - Last Filed: 04/25/22 07:06> - General Exam Comments Initial Comments: General: Appears in no acute distress. HEAD: Normal with no signs of head trauma. EYES: PERRLA, EOMI, conjunctiva normal, no discharge. ENT: Hearing grossly intact, normal oropharynx. RESPIRATORY: Clear breath sounds bilaterally. No wheezes, rales, or rhonchi. C/V: Regular rate and rhythm. S1 and S2 auscultated, no edema, peripheral pulses 2+ and intact throughout ABD: Abd is soft, nontender, nondistended EXT: Normal range of motion, no obvious deformity SKIN: No rashes or lesions observed on exposed skin. NEURO: Alert and oriented x 4. Cranial nerves II-XII intact. No focal sensory or strength deficits. No tremors. No current signs of alcohol withdrawals. (Jose Guy) Course <Ralph Batista - Last Filed: 04/25/22 19:47> Vital Signs 04/24/22 04/25/22 22:52 07:39 Temperature 98.4 F Pulse Rate 92 88 Respiratory 18 18 Rate Blood Pressure 122/81 126/79 O2 Sat by Pulse 98 97 Oximetry - Reevaluation(s) Reevaluation #1: 04/25/22 19:45 The patient rested comfortably throughout the day in emergency department he was evaluated by the EPS service he currently is not a risk to himself or anyone else he is not suicidal or homicidal. He CT plan has been initiated. Patient will be discharged home with his father who is coming to pick him up. (Ralph Batista) Medical Decision Making - Lab Data Result diagrams: 04/25/22 00:26 04/25/22 00:26 <Jose Guy - Last Filed: 04/25/22 07:06> - Lab Data Result diagrams: 04/25/22 00:26 04/25/22 00:26 <Ralph Batista - Last Filed: 04/25/22 19:47> - Medical Decision Making Based on the patient's presentation and physical exam, I do believe he requires psychiatric evaluation. He was placed in green scrubs. Suicide precautions were ordered. Sitter was ordered. With his extensive history of diabetes and DKA, we will obtain basic laboratory studies in addition to alcohol level and drug screen. He currently has no signs of acute alcohol withdrawal, however we will place him on CIWA protocol. Patient was in agreement this plan. Vital signs are within normal limits. Patient is cooperative. Patient's laboratory studies are remarkable for acute alcohol intoxication with alcohol level of 166. UDS is positive for benzos and marijuana. Urine is negative for ketones but does show 4+ glucose. Glucose is elevated to 250. No signs of DKA. I updated the patient. He will be given IV fluids. Will continue management. At this time patient is medically cleared for evaluation by psychiatry. Disposition is pending EPS evaluation upon sobriety. We'll continue to monitor for alcohol withdrawal signs. Currently no withdrawal signs. vitals remain wnl. Patient will evaluate the patient. Determined that he does meet inpatient criteria. Will be petitioned by EPS. Admission is pending, may be transferring to another facility. Will await EPS updates. (Jose Guy) - Lab Data Lab Results 04/25/22 04/25/22 04/25/22 Range/Units 00:26 00:26 00:26 WBC 6.1 (3.8-10.6) k/uL RBC 4.46 (4.30-5.90) m/uL Hgb 13.7 (13.0-17.5) gm/dL Hct 41.9 (39.0-53.0) % MCV 94.0 (80.0-100.0) fL MCH 30.6 (25.0-35.0) pg MCHC 32.6 (31.0-37.0) g/dL RDW 12.5 (11.5-15.5) % Plt Count 194 (150-450) k/uL MPV 8.6 Neutrophils % 51 % Lymphocytes % 35 % Monocytes % 4 % Eosinophils % 4 % Basophils % 1 % Neutrophils # 3.1 (1.3-7.7) k/uL Lymphocytes # 2.1 (1.0-4.8) k/uL Monocytes # 0.3 (0-1.0) k/uL Eosinophils # 0.3 (0-0.7) k/uL Basophils # 0.1 (0-0.2) k/uL Sodium 139 (137-145) mmol/L Potassium 3.9 (3.5-5.1) mmol/L Chloride 100 (98-107) mmol/L Carbon Dioxide 22 (22-30) mmol/L Anion Gap 17 mmol/L BUN 12 (9-20) mg/dL Creatinine 0.65 L (0.66-1.25) mg/dL Est GFR (CKD-EPI)AfAm >90 (>60 ml/min/1.73 sqM) Est GFR (CKD-EPI)NonAf >90 (>60 ml/min/1.73 sqM) Glucose 250 H (74-99) mg/dL POC Glucose (mg/dL) (70-110) mg/dL POC Glu Air Conditioning Supervisor ID Calcium 9.8 (8.4-10.2) mg/dL Urine Color Yellow Urine Appearance Clear (Clear) Urine pH 6.0 (5.0-8.0) Ur Specific Allison 1.029 (1.001-1.035) Urine Protein Negative (Negative) Urine Glucose (UA) 4+ H (Negative) Urine Ketones Negative (Negative) Urine Blood Negative (Negative) Urine Nitrite Negative (Negative) Urine Bilirubin Negative (Negative) Urine Urobilinogen <2.0 (<2.0) mg/dL Ur Leukocyte Esterase Negative (Negative) Urine Opiates Screen Not Detected (NotDetected) Ur Oxycodone Screen Not Detected (NotDetected) Urine Methadone Screen Not Detected (NotDetected) Ur Propoxyphene Screen Not Detected (NotDetected) Ur Barbiturates Screen Not Detected (NotDetected) U Tricyclic Antidepress Not Detected (NotDetected) Ur Phencyclidine Scrn Not Detected (NotDetected) Ur Amphetamines Screen Not Detected (NotDetected) U Methamphetamines Scrn Not Detected (NotDetected) U Benzodiazepines Scrn Detected H (NotDetected) Urine Cocaine Screen Not Detected (NotDetected) U Marijuana (THC) Screen Detected H (NotDetected) Serum Alcohol 166 mg/dL Coronavirus (PCR) (Not Detectd) 04/25/22 04/25/22 04/25/22 Range/Units 07:40 11:06 16:24 WBC (3.8-10.6) k/uL RBC (4.30-5.90) m/uL Hgb (13.0-17.5) gm/dL Hct (39.0-53.0) % MCV (80.0-100.0) fL MCH (25.0-35.0) pg MCHC (31.0-37.0) g/dL RDW (11.5-15.5) % Plt Count (150-450) k/uL MPV Neutrophils % % Lymphocytes % % Monocytes % % Eosinophils % % Basophils % % Neutrophils # (1.3-7.7) k/uL Lymphocytes # (1.0-4.8) k/uL Monocytes # (0-1.0) k/uL Eosinophils # (0-0.7) k/uL Basophils # (0-0.2) k/uL Sodium (137-145) mmol/L Potassium (3.5-5.1) mmol/L Chloride (98-107) mmol/L Carbon Dioxide (22-30) mmol/L Anion Gap mmol/L BUN (9-20) mg/dL Creatinine (0.66-1.25) mg/dL Est GFR (CKD-EPI)AfAm (>60 ml/min/1.73 sqM) Est GFR (CKD-EPI)NonAf (>60 ml/min/1.73 sqM) Glucose (74-99) mg/dL POC Glucose (mg/dL) 283 H 250 H (70-110) mg/dL POC Glu Air Conditioning Supervisor ID Jean Claude Chew Samantha Calcium (8.4-10.2) mg/dL Urine Color Urine Appearance (Clear) Urine pH (5.0-8.0) Ur Specific Allison (1.001-1.035) Urine Protein (Negative) Urine Glucose (UA) (Negative) Urine Ketones (Negative) Urine Blood (Negative) Urine Nitrite (Negative) Urine Bilirubin (Negative) Urine Urobilinogen (<2.0) mg/dL Ur Leukocyte Esterase (Negative) Urine Opiates Screen (NotDetected) Ur Oxycodone Screen (NotDetected) Urine Methadone Screen (NotDetected) Ur Propoxyphene Screen (NotDetected) Ur Barbiturates Screen (NotDetected) U Tricyclic Antidepress (NotDetected) Ur Phencyclidine Scrn (NotDetected) Ur Amphetamines Screen (NotDetected) U Methamphetamines Scrn (NotDetected) U Benzodiazepines Scrn (NotDetected) Urine Cocaine Screen (NotDetected) U Marijuana (THC) Screen (NotDetected) Serum Alcohol mg/dL Coronavirus (PCR) Not Detected (Not Detectd) Disposition <Jose Guy - Last Filed: 04/25/22 07:06> Is patient prescribed a controlled substance at d/c from ED?: No Decision Date: 04/25/22 Decision Time: 19:47 <Ralph Batista - Last Filed: 04/25/22 19:47> Clinical Impression: Encounter for psychiatric assessment, Alcohol intoxication, Adjustment disorder Disposition: ADMITTED IP TO THIS HOSP Condition: Good Instructions (If sedation given, give patient instructions): Abuse of Alcohol (ED), Mood Disorders (ED) Additional Instructions: Follow-up as per the emergency psychiatric service. Referrals: Julien Anderson MD [Primary Care Provider] - 1-2 days
[2022-04-25 00:34] LABS: Basophils # (A) 0.1 k/uL (0-0.2); Basophils % (A) 1 %; Eosinophils # (A) 0.3 k/uL (0-0.7); Eosinophils % (A) 4 %; HCT 41.9 % (39.0-53.0); HGB 13.7 gm/dL (13.0-17.5); Lymphocytes # (A) 2.1 k/uL (1.0-4.8); Lymphocytes % (A) 35 %; MCH 30.6 pg (25.0-35.0); MCHC 32.6 g/dL (31.0-37.0); Mean Platelet Volume 8.6; Monocytes # (A) 0.3 k/uL (0-1.0); Monocytes % (A) 4 %; Neutrophils # (A) 3.1 k/uL (1.3-7.7); Neutrophils % (A) 51 %; Platelet Count 194 k/uL (150-450); RBC 4.46 m/uL (4.30-5.90); RDW 12.5 % (11.5-15.5); WBC 6.1 k/uL (3.8-10.6)
[2022-04-25 00:43] LABS: African American GFR (CKD) >90 (>60 ml/min/1.73 sqM); Anion Gap 17 mmol/L; Blood Urea Nitrogen 12 mg/dL (9-20); Calcium 9.8 mg/dL (8.4-10.2); Carbon Dioxide 22 mmol/L (22-30); Chloride 100 mmol/L (98-107); Glucose 250 mg/dL (74-99); Non-African American GFR(CKD) >90 (>60 ml/min/1.73 sqM); Potassium 3.9 mmol/L (3.5-5.1); Sodium 139 mmol/L (137-145)
[2022-04-25 00:48] LABS: Alcohol 166 mg/dL
[2022-04-25 01:01] LABS: Appearance,Urine Clear (Clear); Bilirubin,Urine Negative (Negative); Blood,Urine Negative (Negative); Color,Urine Yellow; Glucose,Urine (UA) 4+ (Negative); Ketones,Urine Negative (Negative); Leukocyte Esterase,Urine Negative (Negative); Nitrite,Urine Negative (Negative); Protein,Urine Negative (Negative); Specific Gravity,Urine 1.029 (1.001-1.035); Urobilinogen,Urine <2.0 mg/dL (<2.0)
[2022-04-25] MEDS ORDERED: SODIUM CHLORIDE 0.9% 1,000 ML IV STA (01:02)
[2022-04-25 01:15] LABS: Amphetamine Screen,Urine Not Detected (NotDetected); Barbiturate Screen,Urine Not Detected (NotDetected); Benzodiazepines Screen,Urine Detected (NotDetected); Cocaine Screen,Urine Not Detected (NotDetected); Methadone Screen, Urine Not Detected (NotDetected); Opiate Screen,Urine Not Detected (NotDetected); Oxycodone Screen, Urine Not Detected (NotDetected); Phencyclidine Screen,Urine Not Detected (NotDetected); Tricyclic Antidepressant,Urine Not Detected (NotDetected); Urn Cannabinoid Scrn Detected (NotDetected)
[2022-04-25 07:40] VITALS: BP 126/79; PULSE 88
[2022-04-25 11:09] LABS: Glucose,Whole Blood 283 mg/dL (70-110)
[2022-04-25] MEDS ORDERED: DEXTROSE 50% SYRINGE 50 ML IVP PRN ×2 (11:11)
[2022-04-25] MEDS: INSULIN ASPART (NovoLOG) 100 UNIT/ML VIAL SQ SCH ×2 (11:59→16:33)
[2022-04-25] MEDS: LORazepam 2 MG/ML INJ IV PRN ×2 (12:03→16:34)
[2022-04-25 16:26] LABS: Glucose,Whole Blood 250 mg/dL (70-110)
[2022-04-25] MEDS ORDERED: THIAMINE 100 MG TAB PO SCH (17:30)
== END 2022-04-25 20:03 | disposition other institution (70) ==
LOC: EC 22:04
DX: F43.20 Adjustment disorder, unspecified (principal); F10.129 Alcohol abuse with intoxication, unspecified; F12.90 Cannabis use, unspecified, uncomplicated; F13.90 Sedative, hypnotic, or anxiolytic use, unspecified, uncomplicated; E11.9 Type 2 diabetes mellitus without complications; K21.9 Gastro-esophageal reflux disease without esophagitis; F17.200 Nicotine dependence, unspecified, uncomplicated; Z20.822 Contact with and (suspected) exposure to COVID-19; Z79.4 Long term (current) use of insulin; Z79.899 Other long term (current) drug therapy; Y90.6 Blood alcohol level of 120-199 mg/100 ml
CPT/HCPCS: 82075; 36415; 80048; 85025; 81003; 80306; 83036; 87635; 99285; 96374; 96360; 96361; G0480; J2060; 80320

== ENCOUNTER 2022-05-26 19:40 | Inpatient (IN) | payer OTHER ==
[2022-05-26] MEDS ORDERED: SODIUM CHLORIDE 0.9% 1,000 ML IV STA ×2 (21:40→23:19)
--- NOTE | 2022-05-26 21:52 | ED ---
General Adult HPI - General Chief complaint: Abdominal Pain Stated complaint: diabetic,DKA Time Seen by Provider: 05/26/22 21:35 Source: patient Mode of arrival: ambulatory - History of Present Illness Initial comments: Dictation was produced using [employer] dictation software. please excuse any grammatical, word or spelling errors. Chief Complaint: 41-year-old male past medical history of insulin-dependent diabetes and chronic alcoholism presents with abdominal pain and concerns of alcohol withdrawal History of Present Illness: 41-year-old male who is well-known to emergency department. Patient is here today for concerns of pancreatitis and alcohol with drawal. Patient drinks daily. His last alcohol intake was earlier today. He believes that he is withdrawing. Several hours prior to arrival patient also began experiencing epigastric abdominal tenderness. Patient states that his symptoms remind him of when he was diagnosed with pancreatitis in the past. Patient denies any fever, chills or night sweats. No nausea vomiting. No diarrhea. She reports that he is noncompliant with his diabetes medications.. The ROS documented in this emergency department record has been reviewed and confirmed by me. Those systems with pertinent positive or negative responses have been documented in the HPI. All other systems are other negative and/or noncontributory. PHYSICAL EXAM: General Impression: Alert and oriented x3, not in acute distress HEENT: Normocephalic atraumatic, extra-ocular movements intact, pupils equal and reactive to light bilaterally, mucous membranes moist. Cardiovascular: Heart regular rate and rhythm Chest: Able to complete full sentences, no retractions, no tachypnea Abdomen: abdomen soft, reported palpatory tenderness to the epigastric area, non-distended, no organomegaly Musculoskeletal: Pulses present and equal in all extremities, no peripheral edema Motor: no focal deficits noted Neurological: CN II-XII grossly intact, no focal motor or sensory deficits noted Skin: Intact with no visualized rashes Psych: Normal affect and mood ED course: 41-year-old male presents with abdominal pain and concerns of alcohol withdrawal. Patient's last alcohol intake was earlier today. Vital signs upon arrival shows heart rate of 119, rest of vital signs within acceptable limits. Patient has been admitted multiple times for DKA and alcohol withdrawal. Patient does not appear have severe signs or symptoms or physical exam findings to suggest occult withdrawal at this time. Laboratory evaluation obtained. CBC remarkable. Initial potassium 6. 2 repeat is 5.2. Significant acidosis with a bicarb of 12 and anion gap 34. Glucose 243. Elevated liver enzymes mildly. Serum alcohol 120. Pending urine studies. Patient reevaluated bedside 1:00 and finally stable medical condition. Patient started on insulin drip. Patient started on maintenance fluids with dextrose. Patient admitted to Dr. Anderson. Laboratory evaluation suggests metabolic acidosis. Likely multifactorial including alcoholic ketoacidosis and some DKA. - Related Data Home Medications Medication Instructions Recorded Confirmed INSULIN LISPRO (HumaLOG) [humaLOG] See Protocol SQ AC-TID PRN MDD 30 12/30/20 04/25/22 ALPRAZolam [Xanax] 0.25 mg PO BID PRN 07/22/21 04/25/22 traZODone HCL 50 mg PO HS PRN 11/21/21 04/25/22 Pantoprazole Sodium 20 mg PO DAILY 03/12/22 04/25/22 Insulin Glargine [Lantus Vial] 25 unit SQ DAILY 04/04/22 04/25/22 Previous Rx's Medication Instructions Recorded Folic Acid 0.5 mg PO DAILY 15 Days #15 tab 03/17/22 Thiamine [Vitamin B-1] 100 mg PO BID-W/MEALS 15 Days #30 03/17/22 tab Acamprosate Calcium [Campral] 666 mg PO TID #90 tab 04/11/22 Allergies Allergy/AdvReac Type Severity Reaction Status Date / Time No Known Allergies Allergy Verified 05/26/22 21:32 Review of Systems ROS Statement: Those systems with pertinent positive or pertinent negative responses have been documented in the HPI. ROS Other: All systems not noted in ROS Statement are negative. Past Medical History Past Medical History: Diabetes Mellitus, GERD/Reflux Additional Past Medical History / Comment(s): IDDM pt states he has been told he is type 1 and told he is type II, neuropathy occasionally in bilateral toes/fingers, DKAs, ETOH abuse, past DT's/seizure when withdrawing from alcohol said last sz possibly a year ago, chronic pancreatitis History of Any Multi-Drug Resistant Organisms: None Reported Past Surgical History: No Surgical Hx Reported Additional Past Surgical History / Comment(s): Pt has never had surgery Past Anesthesia/Blood Transfusion Reactions: Unable to Obtain Additional Past Anesthesia/Blood Transfusion Reaction / Comment(s): Pt has never had surgery. Past Psychological History: Anxiety Smoking Status: Current every day smoker, Vaper Past Alcohol Use History: Abuse, Daily, Heavy Past Drug Use History: None Reported - Past Family History Father Family Medical History: Diabetes Mellitus Mother History Unknown: Yes Additional Family Medical History / Comment(s): Pt does not have contact with his mother. Course Vital Signs 05/26/22 21:30 Temperature 98 F Pulse Rate 119 H Respiratory 18 Rate Blood Pressure 139/97 O2 Sat by Pulse 98 Oximetry Medical Decision Making - Lab Data Result diagrams: 05/26/22 22:11 05/26/22 23:44 Lab Results 05/26/22 05/26/22 05/26/22 Range/Units 22:11 22:11 23:44 WBC 8.1 (3.8-10.6) k/uL RBC 5.19 (4.30-5.90) m/uL Hgb 16.6 (13.0-17.5) gm/dL Hct 47.4 (39.0-53.0) % MCV 91.5 (80.0-100.0) fL MCH 32.0 (25.0-35.0) pg MCHC 34.9 (31.0-37.0) g/dL RDW 12.6 (11.5-15.5) % Plt Count 256 (150-450) k/uL MPV 8.3 Neutrophils % 74 % Lymphocytes % 17 % Monocytes % 5 % Eosinophils % 2 % Basophils % 1 % Neutrophils # 6.0 (1.3-7.7) k/uL Lymphocytes # 1.4 (1.0-4.8) k/uL Monocytes # 0.4 (0-1.0) k/uL Eosinophils # 0.2 (0-0.7) k/uL Basophils # 0.1 (0-0.2) k/uL Sodium 135 L (137-145) mmol/L Potassium 6.2 H* 5.2 H (3.5-5.1) mmol/L Chloride 89 L (98-107) mmol/L Carbon Dioxide 12 L (22-30) mmol/L Anion Gap 34 mmol/L BUN 14 (9-20) mg/dL Creatinine 0.82 (0.66-1.25) mg/dL Est GFR (CKD-EPI)AfAm >90 (>60 ml/min/1.73 sqM) Est GFR (CKD-EPI)NonAf >90 (>60 ml/min/1.73 sqM) Glucose 243 H (74-99) mg/dL POC Glucose (mg/dL) (70-110) mg/dL POC Glu Administrative Assistant ID Calcium 9.2 (8.4-10.2) mg/dL Magnesium 1.6 (1.6-2.3) mg/dL Total Bilirubin 2.5 H (0.2-1.3) mg/dL Conjugated Bilirubin 0.0 (0.0-0.3) mg/dL Unconjugated Bilirubin 1.9 H (0.0-1.1) mg/dL Delta Bilirubin 0.6 H (0.0-0.2) mg/dL AST 74 H (17-59) U/L ALT 92 H (4-49) U/L Alkaline Phosphatase 207 H (38-126) U/L Total Protein 9.0 H (6.3-8.2) g/dL Albumin 6.0 H (3.5-5.0) g/dL Lipase 52 (23-300) U/L Serum Alcohol 120 mg/dL 05/27/22 Range/Units 00:46 WBC (3.8-10.6) k/uL RBC (4.30-5.90) m/uL Hgb (13.0-17.5) gm/dL Hct (39.0-53.0) % MCV (80.0-100.0) fL MCH (25.0-35.0) pg MCHC (31.0-37.0) g/dL RDW (11.5-15.5) % Plt Count (150-450) k/uL MPV Neutrophils % % Lymphocytes % % Monocytes % % Eosinophils % % Basophils % % Neutrophils # (1.3-7.7) k/uL Lymphocytes # (1.0-4.8) k/uL Monocytes # (0-1.0) k/uL Eosinophils # (0-0.7) k/uL Basophils # (0-0.2) k/uL Sodium (137-145) mmol/L Potassium (3.5-5.1) mmol/L Chloride (98-107) mmol/L Carbon Dioxide (22-30) mmol/L Anion Gap mmol/L BUN (9-20) mg/dL Creatinine (0.66-1.25) mg/dL Est GFR (CKD-EPI)AfAm (>60 ml/min/1.73 sqM) Est GFR (CKD-EPI)NonAf (>60 ml/min/1.73 sqM) Glucose (74-99) mg/dL POC Glucose (mg/dL) 232 H (70-110) mg/dL POC Glu Administrative Assistant ID Yudith Logan Calcium (8.4-10.2) mg/dL Magnesium (1.6-2.3) mg/dL Total Bilirubin (0.2-1.3) mg/dL Conjugated Bilirubin (0.0-0.3) mg/dL Unconjugated Bilirubin (0.0-1.1) mg/dL Delta Bilirubin (0.0-0.2) mg/dL AST (17-59) U/L ALT (4-49) U/L Alkaline Phosphatase (38-126) U/L Total Protein (6.3-8.2) g/dL Albumin (3.5-5.0) g/dL Lipase (23-300) U/L Serum Alcohol mg/dL Critical Care Time Critical Care Time: Yes Total Critical Care Time: 33 Disposition Clinical Impression: Metabolic acidosis Disposition: ADMITTED IP TO THIS [facility] Condition: Serious Referrals: Julien Anderson MD [Primary Care Provider] - 1-2 days Decision Time: 01:01
[2022-05-26 22:25] LABS: Basophils # (A) 0.1 k/uL (0-0.2); Basophils % (A) 1 %; Eosinophils # (A) 0.2 k/uL (0-0.7); Eosinophils % (A) 2 %; HCT 47.4 % (39.0-53.0); HGB 16.6 gm/dL (13.0-17.5); Lymphocytes # (A) 1.4 k/uL (1.0-4.8); Lymphocytes % (A) 17 %; MCHC 34.9 g/dL (31.0-37.0); MCV 91.5 fL (80.0-100.0); Mean Platelet Volume 8.3; Monocytes # (A) 0.4 k/uL (0-1.0); Monocytes % (A) 5 %; Neutrophils % (A) 74 %; Platelet Count 256 k/uL (150-450); RBC 5.19 m/uL (4.30-5.90); RDW 12.6 % (11.5-15.5); WBC 8.1 k/uL (3.8-10.6)
[2022-05-26 22:39] LABS: ALT 92 U/L (4-49); AST 74 U/L (17-59); African American GFR (CKD) >90 (>60 ml/min/1.73 sqM); Alkaline Phosphatase 207 U/L (38-126); Anion Gap 34 mmol/L; Bilirubin, Delta 0.6 mg/dL (0.0-0.2); Bilirubin,Unconjugated 1.9 mg/dL (0.0-1.1); Blood Urea Nitrogen 14 mg/dL (9-20); Calcium 9.2 mg/dL (8.4-10.2); Carbon Dioxide 12 mmol/L (22-30); Chloride 89 mmol/L (98-107); Glucose 243 mg/dL (74-99); Lipase 52 U/L (23-300); Magnesium 1.6 mg/dL (1.6-2.3); Non-African American GFR(CKD) >90 (>60 ml/min/1.73 sqM); Sodium 135 mmol/L (137-145); Total Bilirubin 2.5 mg/dL (0.2-1.3)
[2022-05-26 23:02] LABS: Potassium 6.2 mmol/L (3.5-5.1)
[2022-05-26 23:05] LABS: Alcohol 120 mg/dL
[2022-05-27] MEDS ORDERED: INSULIN REGULAR BOLUS (FROM DRIP BAG) IV ONE (00:22)
[2022-05-27] MEDS ORDERED: Magnesium Replacement Protocol 1 EACH MISC MISCELLANE PRN (00:22)
[2022-05-27] MEDS ORDERED: Potassium Replacement Protocol 1 EACH MISC MISCELLANE PRN (00:22)
[2022-05-27 00:48] LABS: Glucose,Whole Blood 232 mg/dL (70-110)
[2022-05-27] MEDS: INSULIN REGULAR 100 UNIT in SODIUM CHLORIDE 0.9% 100 ML IV SCH ×2 (00:48→13:37)
[2022-05-27] MEDS ORDERED: NALOXONE 0.4 MG/ML 1 ML VIAL IV PRN (00:58)
[2022-05-27] MEDS ORDERED: LORazepam 2 MG/ML INJ IV PRN ×3 (00:59)
[2022-05-27] MEDS ORDERED: THIAMINE 100 MG/ML 2 ML VIAL IM STA (00:59)
[2022-05-27 01:21] LABS: Appearance,Urine Clear (Clear); Bilirubin,Urine Negative (Negative); Blood,Urine Small (Negative); Color,Urine Light Yellow; Glucose,Urine (UA) 4+ (Negative); Leukocyte Esterase,Urine Negative (Negative); Mucus,Urine Rare /hpf; Nitrite,Urine Negative (Negative); PH, Urine 5.5 (5.0-8.0); Protein,Urine 3+ (Negative); RBC,Urine 1 /hpf (0-5); Specific Gravity,Urine 1.024 (1.001-1.035); Squamous Epithelial Cell,Urine <1 /hpf (0-4); Urobilinogen,Urine <2.0 mg/dL (<2.0); WBC,Urine <1 /hpf (0-5)
[2022-05-27 01:28] LABS: Ketones,Urine 4+ (Negative)
[2022-05-27 01:41] LABS: VBG PH 7.22 (7.31-7.41)
[2022-05-27 02:00] LABS: Glucose,Whole Blood 160 mg/dL (70-110)
[2022-05-27] MEDS ORDERED: LORazepam 1 MG/0.5 ML VIAL IV PRN (02:27)
[2022-05-27 03:00] LABS: Glucose,Whole Blood 125 mg/dL (70-110)
[2022-05-27] MEDS: LORazepam 1 MG/0.5 ML VIAL IV PRN ×8 (03:34→21:03)
[2022-05-27 03:54] LABS: African American GFR (CKD) >90 (>60 ml/min/1.73 sqM); Anion Gap 17 mmol/L; Blood Urea Nitrogen 13 mg/dL (9-20); Carbon Dioxide 20 mmol/L (22-30); Chloride 97 mmol/L (98-107); Glucose 108 mg/dL (74-99); Non-African American GFR(CKD) >90 (>60 ml/min/1.73 sqM); Phosphorus 2.1 mg/dL (2.5-4.5); Sodium 134 mmol/L (137-145)
[2022-05-27] MEDS: D5-0.45% NACL WITH KCL 20MEQ/L 1,000 ML IV SCH ×4 (04:06→16:59)
[2022-05-27] MEDS: SODIUM CHLORIDE 0.9% 1,000 ML IV SCH ×3 (04:09→10:44)
[2022-05-27 04:10] LABS: Glucose,Whole Blood 105 mg/dL (70-110)
[2022-05-27 05:03] LABS: Glucose,Whole Blood 115 mg/dL (70-110)
[2022-05-27 05:58] LABS: Glucose,Whole Blood 129 mg/dL (70-110)
[2022-05-27 08:12] LABS: Glucose,Whole Blood 170 mg/dL (70-110)
[2022-05-27 08:55] LABS: African American GFR (CKD) >90 (>60 ml/min/1.73 sqM); Anion Gap 17 mmol/L; Blood Urea Nitrogen 13 mg/dL (9-20); Calcium 8.2 mg/dL (8.4-10.2); Carbon Dioxide 21 mmol/L (22-30); Chloride 96 mmol/L (98-107); Glucose 167 mg/dL (74-99); Non-African American GFR(CKD) >90 (>60 ml/min/1.73 sqM); Phosphorus 2.2 mg/dL (2.5-4.5); Potassium 4.4 mmol/L (3.5-5.1); Sodium 134 mmol/L (137-145)
[2022-05-27 09:02] LABS: Glucose,Whole Blood 215 mg/dL (70-110)
[2022-05-27] MEDS ORDERED: ALPRAZolam 0.25 MG TAB PO PRN (09:07)
[2022-05-27] MEDS: HYDROmorphone 1 MG/ML 1 ML SYRINGE IVP PRN ×4 (09:46→22:37)
[2022-05-27] MEDS: PANTOPRAZOLE 40 MG TABLET PO SCH (09:46)
[2022-05-27 10:13] LABS: Glucose,Whole Blood 196 mg/dL (70-110)
[2022-05-27 11:03] LABS: Glucose,Whole Blood 198 mg/dL (70-110)
[2022-05-27 12:07] LABS: Glucose,Whole Blood 225 mg/dL (70-110)
[2022-05-27 12:11] LABS: African American GFR (CKD) >90 (>60 ml/min/1.73 sqM); Anion Gap 12 mmol/L; Blood Urea Nitrogen 13 mg/dL (9-20); Carbon Dioxide 26 mmol/L (22-30); Chloride 95 mmol/L (98-107); Glucose 207 mg/dL (74-99); Non-African American GFR(CKD) >90 (>60 ml/min/1.73 sqM); Phosphorus 1.9 mg/dL (2.5-4.5); Potassium 4.1 mmol/L (3.5-5.1); Sodium 133 mmol/L (137-145)
[2022-05-27 13:04] VITALS: BMI 22.9
[2022-05-27 13:05] LABS: Glucose,Whole Blood 245 mg/dL (70-110)
[2022-05-27 14:00] LABS: Glucose,Whole Blood 197 mg/dL (70-110)
[2022-05-27 15:01] LABS: Glucose,Whole Blood 231 mg/dL (70-110)
[2022-05-27 15:38] LABS: African American GFR (CKD) >90 (>60 ml/min/1.73 sqM); Anion Gap 11 mmol/L; Blood Urea Nitrogen 11 mg/dL (9-20); Calcium 7.9 mg/dL (8.4-10.2); Carbon Dioxide 26 mmol/L (22-30); Chloride 95 mmol/L (98-107); Glucose 216 mg/dL (74-99); Non-African American GFR(CKD) >90 (>60 ml/min/1.73 sqM); Phosphorus 1.7 mg/dL (2.5-4.5); Potassium 3.8 mmol/L (3.5-5.1); Sodium 132 mmol/L (137-145)
[2022-05-27 16:17] LABS: Glucose,Whole Blood 197 mg/dL (70-110)
[2022-05-27] MEDS: THIAMINE 100 MG TAB PO SCH (16:40)
[2022-05-27 17:03] LABS: Glucose,Whole Blood 186 mg/dL (70-110)
[2022-05-27] MEDS: INSULIN ASPART (NovoLOG) 100 UNIT/ML VIAL SQ SCH ×2 (17:11→23:28)
[2022-05-27 18:00] LABS: Glucose,Whole Blood 212 mg/dL (70-110)
[2022-05-27 19:01] LABS: Glucose,Whole Blood 157 mg/dL (70-110)
[2022-05-27 19:08] LABS: African American GFR (CKD) >90 (>60 ml/min/1.73 sqM); Anion Gap 10 mmol/L; Blood Urea Nitrogen 12 mg/dL (9-20); Calcium 8.2 mg/dL (8.4-10.2); Carbon Dioxide 29 mmol/L (22-30); Chloride 94 mmol/L (98-107); Glucose 166 mg/dL (74-99); Non-African American GFR(CKD) >90 (>60 ml/min/1.73 sqM); Phosphorus 1.7 mg/dL (2.5-4.5); Potassium 3.8 mmol/L (3.5-5.1); Sodium 133 mmol/L (137-145)
[2022-05-27 20:16] LABS: Glucose,Whole Blood 143 mg/dL (70-110)
[2022-05-27] MEDS: INSULIN DETEMIR (LEVEMIR) 100 UNIT/ML SYR SQ SCH (21:04)
[2022-05-27 22:09] LABS: Glucose,Whole Blood 146 mg/dL (70-110)
--- NOTE | 2022-05-27 23:50 | HP ---
HISTORY AND PHYSICAL HISTORY OF PRESENT ILLNESS: A 41-year-old male with past medical history insulin-dependent diabetes mellitus, chronic alcoholism, who presents with recurrent abdominal pain and alcohol withdrawal. He drinks daily alcohol, his last alcohol , appears withdrawn. He came to the emergency room with abdominal pain, was found to have elevated blood sugars, but no DKA. He has history of pancreatitis, he probably has recurrent pancreatitis at this point. REVIEW OF SYSTEMS: Positive for abdominal pain, nausea, vomiting, dehydration, lightheadedness, dizziness. Otherwise negative. PHYSICAL EXAMINATION: GENERAL: He is alert and oriented, no acute distress. HEENT: Normocephalic, atraumatic. HEART: S1, S2. CHEST: Clear. NEUROLOGIC: Mild tremor. PSYCH: Fair mood and affect. ABDOMEN: Diffuse tenderness throughout the mid abdomen. No guarding. no edema. ASSESSMENT: Alcohol dependence, alcohol withdrawal. Mild dehydrations. Started on insulin drip due to elevated blood sugars. He has bicarb of 12, anion gap 34, significant metabolic acidosis, possibly get Psychiatry and Neurology involved. Rehydrate. Treat severe metabolic acidosis. Continue with fluid resuscitation. Electrolyte abnormalities include hypomagnesemia have to be replaced. Please see further orders. MMODL / IJN: [id number] /
[2022-05-28] MEDS: LORazepam 1 MG/0.5 ML VIAL IV PRN ×7 (00:49→23:21)
[2022-05-28] MEDS: HYDROmorphone 1 MG/ML 1 ML SYRINGE IVP PRN ×4 (04:24→20:25)
[2022-05-28 06:14] LABS: Glucose,Whole Blood 122 mg/dL (70-110)
[2022-05-28] MEDS: D5-0.45% NACL WITH KCL 20MEQ/L 1,000 ML IV SCH ×2 (06:20→10:38)
[2022-05-28] MEDS: INSULIN ASPART (NovoLOG) 100 UNIT/ML VIAL SQ SCH ×4 (06:21→20:36)
[2022-05-28] MEDS: PANTOPRAZOLE 40 MG TABLET PO SCH (06:48)
[2022-05-28 08:52] LABS: Basophils % (A) 1 %; Eosinophils # (A) 0.2 k/uL (0-0.7); Eosinophils % (A) 3 %; HCT 42.3 % (39.0-53.0); HGB 14.5 gm/dL (13.0-17.5); Lymphocytes # (A) 0.9 k/uL (1.0-4.8); Lymphocytes % (A) 19 %; MCH 31.3 pg (25.0-35.0); MCHC 34.2 g/dL (31.0-37.0); MCV 91.6 fL (80.0-100.0); Mean Platelet Volume 8.3; Monocytes # (A) 0.1 k/uL (0-1.0); Monocytes % (A) 2 %; Neutrophils # (A) 3.3 k/uL (1.3-7.7); Neutrophils % (A) 74 %; Platelet Count 161 k/uL (150-450); RBC 4.62 m/uL (4.30-5.90); RDW 12.3 % (11.5-15.5); WBC 4.4 k/uL (3.8-10.6)
[2022-05-28] MEDS: THIAMINE 100 MG TAB PO SCH (09:12)
[2022-05-28 09:35] LABS: ALT 167 U/L (4-49); AST 332 U/L (17-59); African American GFR (CKD) >90 (>60 ml/min/1.73 sqM); Albumin 4.2 g/dL (3.5-5.0); Alkaline Phosphatase 116 U/L (38-126); Anion Gap 9 mmol/L; Blood Urea Nitrogen 10 mg/dL (9-20); Carbon Dioxide 31 mmol/L (22-30); Chloride 96 mmol/L (98-107); Glucose 117 mg/dL (74-99); Non-African American GFR(CKD) >90 (>60 ml/min/1.73 sqM); Potassium 3.7 mmol/L (3.5-5.1); Sodium 136 mmol/L (137-145); Total Bilirubin 3.1 mg/dL (0.2-1.3); Total Protein 6.1 g/dL (6.3-8.2)
[2022-05-28 12:12] LABS: Glucose,Whole Blood 76 mg/dL (70-110)
[2022-05-28] MEDS: LIPASE 5,000/PROTEASE 17,000/AMYLASE 24,000 PO SCH (16:25)
[2022-05-28] MEDS: NICOTINE 14MG/24HR PATCH TRANSDERM SCH (16:25)
[2022-05-28 16:27] LABS: Glucose,Whole Blood 168 mg/dL (70-110)
[2022-05-28 20:27] LABS: Glucose,Whole Blood 232 mg/dL (70-110)
[2022-05-28] MEDS: INSULIN DETEMIR (LEVEMIR) 100 UNIT/ML SYR SQ SCH (20:35)
[2022-05-29] MEDS: HYDROmorphone 1 MG/ML 1 ML SYRINGE IVP PRN ×3 (00:26→09:03)
[2022-05-29] MEDS: LORazepam 1 MG/0.5 ML VIAL IV PRN ×3 (03:07→10:41)
--- NOTE | 2022-05-29 05:47 | PN ---
PROGRESS NOTE SUBJECTIVE: A 41-year-old white male with diabetic ketoacidosis. He is started on his regular diet now. He is started on Creon for abdominal pain for chronic pancreatitis. We will advance his diet as he takes Creon and see how he does with food intake, possibly discharge home. He has been placed back on his home insulin. He has severe alcohol addiction issues. He will need alcohol addiction medicine, for which Dr. Nick will try to assess with him tomorrow. OBJECTIVE: ABDOMEN: Soft. CARDIOVASCULAR: S1, S2. LUNGS: Clear. PSYCH: Flat mood and affect. ASSESSMENT: Alcohol dependence. Alcohol withdrawal. Pancreatic insufficiency. Acute on chronic pancreatitis. Prognosis guarded. Continue advance diet. Add Creon which helps with his abdominal pain. Creon with his meals t.i.d. MMGUERDAL / OWENN: [id number] /
[2022-05-29 05:53] LABS: Glucose,Whole Blood 81 mg/dL (70-110)
[2022-05-29] MEDS: INSULIN ASPART (NovoLOG) 100 UNIT/ML VIAL SQ SCH ×2 (05:55→12:22)
[2022-05-29] MEDS: LIPASE 5,000/PROTEASE 17,000/AMYLASE 24,000 PO SCH ×2 (06:39→12:22)
[2022-05-29] MEDS: PANTOPRAZOLE 40 MG TABLET PO SCH (06:39)
[2022-05-29] MEDS: THIAMINE 100 MG TAB PO SCH (09:03)
[2022-05-29] MEDS: NICOTINE 14MG/24HR PATCH TRANSDERM SCH (09:03)
[2022-05-29 09:50] VITALS: RESP 20
[2022-05-29 11:43] LABS: Glucose,Whole Blood 205 mg/dL (70-110)
[2022-05-29 11:58] VITALS: BP 152/49; PULSE 87; TEMP 98
--- NOTE | 2022-05-30 16:20 | DS ---
DISCHARGE SUMMARY FINAL DIAGNOSES: 1. Acute diabetic ketoacidosis. 2. Alcohol dependence. 3. Chronic pancreatitis. DISCHARGE DISPOSITION: The patient will be discharged in stable condition and guarded prognosis. HISTORY OF PRESENT ILLNESS: This 41-year-old gentleman with a past medical history of multiple medical problems DKA. The patient apparently did not take the medication for a couple days. The patient improved significantly with treatment. No chest pain. No palpitations. No fever. No cough. The patient discharged in stable and guarded prognosis. PHYSICAL EXAMINATION: VITAL SIGNS: Stable. CARDIOVASCULAR: S1, S2. ABDOMEN: Soft. NERVOUS SYSTEM: No focal deficits. Diet is consistent carb. Resume the home medications and Zenpep and as well as thiamine and resumed the Lantus 25 mg subcu daily. Monitor Accu-Cheks before breakfast and at bedtime. Closely follow with Dr. Anderson in the outpatient setting. MMGUERDAL / OWENN: [id number] / MTDD
== END 2022-05-29 13:57 | disposition home health service (06) | DRG 638 ==
LOC: EC 19:40 → 3SCARD 05-27 00:58
PROVIDERS: ADMIT Family Medicine; ATTEND Family Medicine
DX: E11.10 Type 2 diabetes mellitus with ketoacidosis without coma (principal); F10.239 Alcohol dependence with withdrawal, unspecified; K86.1 Other chronic pancreatitis; K21.9 Gastro-esophageal reflux disease without esophagitis; E11.42 Type 2 diabetes mellitus with diabetic polyneuropathy; F17.210 Nicotine dependence, cigarettes, uncomplicated; E83.42 Hypomagnesemia; Z79.4 Long term (current) use of insulin; Z91.14 Patient's other noncompliance with medication regimen; Z79.899 Other long term (current) drug therapy
CPT/HCPCS: 36415; 80048; 80051; 80053; 80320; 81001; 82248; 82565; 82803; 82947; 83690; 83735; 84100; 84132; 84520; 85025; 93005; 96361; 96372; 96374; 99285

== ENCOUNTER 2022-06-24 06:16 | Inpatient (IN) | payer OTHER ==
[2022-06-24 07:29] LABS: Glucose,Whole Blood 460 mg/dL (70-110)
[2022-06-24] MEDS ORDERED: Potassium Replacement Protocol 1 EACH MISC MISCELLANE PRN (07:37)
[2022-06-24] MEDS ORDERED: INSULIN REGULAR BOLUS (FROM DRIP BAG) IV ONE (07:37)
[2022-06-24] MEDS ORDERED: Magnesium Replacement Protocol 1 EACH MISC MISCELLANE PRN (07:37)
[2022-06-24] MEDS ORDERED: SODIUM CHLORIDE 0.9% 500 ML 500 ML IV ONE (07:38)
[2022-06-24] MEDS ORDERED: ONDANSETRON 4 MG/2 ML VIAL IVP STA (07:38)
[2022-06-24] MEDS ORDERED: SODIUM CHLORIDE 0.9% 1,000 ML IV ONE ×2 (07:38→10:18)
[2022-06-24] MEDS ORDERED: SODIUM CHLORIDE 0.9% 1,000 ML IV SCH (07:45)
[2022-06-24 07:59] LABS: Basophils % (A) 1 %; Eosinophils % (A) 1 %; Lymphocytes % (A) 13 %; MCH 32.2 pg (25.0-35.0); MCV 94.6 fL (80.0-100.0); Mean Platelet Volume 8.5; Monocytes # (A) 0.3 k/uL (0-1.0); Monocytes % (A) 3 %; Neutrophils # (A) 6.5 k/uL (1.3-7.7); Neutrophils % (A) 82 %; Platelet Count 197 k/uL (150-450); RBC 4.97 m/uL (4.30-5.90); RDW 12.3 % (11.5-15.5)
[2022-06-24] MEDS: INSULIN REGULAR 100 UNIT in SODIUM CHLORIDE 0.9% 100 ML IV SCH ×2 (08:04→22:02)
[2022-06-24 08:15] LABS: African American GFR (CKD) >90 (>60 ml/min/1.73 sqM); Anion Gap 31 mmol/L; Blood Urea Nitrogen 12 mg/dL (9-20); Carbon Dioxide 15 mmol/L (22-30); Chloride 96 mmol/L (98-107); Glucose 442 mg/dL (74-99); Lipase 48 U/L (23-300); Non-African American GFR(CKD) >90 (>60 ml/min/1.73 sqM); Potassium 5.4 mmol/L (3.5-5.1); Sodium 142 mmol/L (137-145)
[2022-06-24 08:20] LABS: Alcohol 89 mg/dL
[2022-06-24] MEDS ORDERED: LORazepam 2 MG/ML INJ IV STA (08:37)
--- NOTE | 2022-06-24 08:39 | ED ---
General Adult HPI - General Chief complaint: Nausea/Vomiting/Diarrhea Stated complaint: Vomiting, possible DKA Time Seen by Provider: 06/24/22 07:05 Source: patient, RN notes reviewed, old records reviewed Mode of arrival: ambulatory Limitations: no limitations - History of Present Illness Initial comments: This is a 41-year-old male presents emergency department stating that he is a heavy drinker he quit last night about 12 hours prior to arrival. Patient states all night long he's been vomiting. Patient states he has some epigastric abdominal pain. Patient states he has a history of pancreatic tightness. Patient states he is also a diabetic and has been in DKA before. Patient feels as though he may be in DKA again today because of how dry he feels and the fact that he can't stop vomiting. Patient states he has had a history of seizures when he stops drinking before but that was 6 or 7 years ago. Patient denies any chest pain difficulty breathing shortness of breath per patient denies any recent fever chills or cough. Patient denies any dysuria hematuria urinary frequency. - Related Data Home Medications Medication Instructions Recorded Confirmed INSULIN LISPRO (HumaLOG) [humaLOG] See Protocol SQ AC-TID PRN 12/30/20 05/27/22 ALPRAZolam [Xanax] 0.25 mg PO BID PRN 07/22/21 05/27/22 Pantoprazole Sodium 20 mg PO DAILY 03/12/22 05/27/22 Insulin Glargine [Lantus Vial] 25 unit SQ DAILY 04/04/22 05/27/22 Previous Rx's Medication Instructions Recorded Lipase/Protease/Amylase [Zenpep Dr 2 each PO AC-TID #90 cap 05/29/22 5,000 Unit Capsule] Thiamine [Vitamin B-1] 100 mg PO DAILY #30 tab 05/29/22 chlordiazePOXIDE HCl [Librium] 25 mg PO TID 3 Days #12 capsule 05/31/22 Allergies Allergy/AdvReac Type Severity Reaction Status Date / Time No Known Allergies Allergy Verified 06/24/22 06:37 Review of Systems ROS Statement: Those systems with pertinent positive or pertinent negative responses have been documented in the HPI. ROS Other: All systems not noted in ROS Statement are negative. Past Medical History Past Medical History: Diabetes Mellitus, GERD/Reflux Additional Past Medical History / Comment(s): IDDM pt states he has been told he is type 1 and told he is type II, neuropathy occasionally in bilateral toes/fingers, DKAs, ETOH abuse, past DT's/seizure when withdrawing from alcohol said last sz possibly a year ago, chronic pancreatitis History of Any Multi-Drug Resistant Organisms: None Reported Past Surgical History: No Surgical Hx Reported Additional Past Surgical History / Comment(s): Pt has never had surgery Past Anesthesia/Blood Transfusion Reactions: Unable to Obtain Additional Past Anesthesia/Blood Transfusion Reaction / Comment(s): Pt has never had surgery. Past Psychological History: Anxiety Smoking Status: Current every day smoker, Vaper Past Alcohol Use History: Abuse, Daily, Heavy Past Drug Use History: None Reported - Past Family History Father Family Medical History: Diabetes Mellitus Mother History Unknown: Yes Additional Family Medical History / Comment(s): Pt does not have contact with his mother. General Exam - General Exam Comments Initial Comments: GENERAL: Patient is well-developed and well-nourished. Patient is nontoxic and well- hydrated and is in mild distress. ENT: Neck is soft and supple. No significant lymphadenopathy is noted. Oropharynx is clear. Dry mucous membranes. Neck has full range of motion without eliciting any pain. EYES: The sclera were anicteric and conjunctiva were pink and moist. Extraocular movements were intact and pupils were equal round and reactive to light. Eyelids were unremarkable. PULMONARY: Unlabored respirations. Good breath sounds bilaterally. No audible rales rhonc hi or wheezing was noted. CARDIOVASCULAR: There is a regular rate and rhythm without any murmurs gallops or rubs. ABDOMEN: Mild epigastric abdominal pain SKIN: Skin is clear with no lesions or rashes and otherwise unremarkable. NEUROLOGIC: Patient is alert and oriented x3. Cranial nerves II through XII are grossly intact. Motor and sensory are also intact. Normal speech, volume and content. Symmetrical smile. MUSCULOSKELETAL: Normal extremities with adequate strength and full range of motion. No lower extremity swelling or edema. No calf tenderness. LYMPHATICS: No significant lymphadenopathy is noted PSYCHIATRIC: Normal psychiatric evaluation. Limitations: no limitations Course Vital Signs 06/24/22 06/24/22 06:38 09:20 Temperature 97.7 F Pulse Rate 108 H 93 Respiratory 16 16 Rate Blood Pressure 137/86 126/82 O2 Sat by Pulse 98 100 Oximetry Medical Decision Making - Medical Decision Making EKG shows sinus rhythm at 96 bpm HI interval 218 QRS is 94 Q-T intervals 350 QTC is 411. Patient's EKG shows peaked T waves in V3 V4 V5 and V6. No significant ST segment elevation is noted. Patient is not having any chest pain. Patient received Zofran and fluids in the emergency department was feeling somewhat better but still was having some shakes from the alcohol withdrawal. Patient still complained of some epigastric abdominal pain and continued to be somewhat nauseous. I spoke with Dr. Anderson he agreed to admit the patient patient wrote admitting orders. - Lab Data Result diagrams: 06/24/22 07:54 06/24/22 07:54 Lab Results 06/24/22 06/24/22 06/24/22 Range/Units 07:28 07:54 07:54 WBC 8.0 (3.8-10.6) k/uL RBC 4.97 (4.30-5.90) m/uL Hgb 16.0 (13.0-17.5) gm/dL Hct 47.0 (39.0-53.0) % MCV 94.6 (80.0-100.0) fL MCH 32.2 (25.0-35.0) pg MCHC 34.0 (31.0-37.0) g/dL RDW 12.3 (11.5-15.5) % Plt Count 197 (150-450) k/uL MPV 8.5 Neutrophils % 82 % Lymphocytes % 13 % Monocytes % 3 % Eosinophils % 1 % Basophils % 1 % Neutrophils # 6.5 (1.3-7.7) k/uL Lymphocytes # 1.0 (1.0-4.8) k/uL Monocytes # 0.3 (0-1.0) k/uL Eosinophils # 0.0 (0-0.7) k/uL Basophils # 0.0 (0-0.2) k/uL Sodium 142 (137-145) mmol/L Potassium 5.4 H (3.5-5.1) mmol/L Chloride 96 L (98-107) mmol/L Carbon Dioxide 15 L (22-30) mmol/L Anion Gap 31 mmol/L BUN 12 (9-20) mg/dL Creatinine 0.91 (0.66-1.25) mg/dL Est GFR (CKD-EPI)AfAm >90 (>60 ml/min/1.73 sqM) Est GFR (CKD-EPI)NonAf >90 (>60 ml/min/1.73 sqM) Glucose 442 H (74-99) mg/dL POC Glucose (mg/dL) 460 H (70-110) mg/dL POC Glu Roller Helper ID Sandy Davidson Troponin I (0.000-0.034) ng/mL Lipase 48 (23-300) U/L Serum Alcohol 89 mg/dL Acetone, Qual Negative (Negative) 06/24/22 06/24/22 06/24/22 Range/Units 07:54 08:50 10:08 WBC (3.8-10.6) k/uL RBC (4.30-5.90) m/uL Hgb (13.0-17.5) gm/dL Hct (39.0-53.0) % MCV (80.0-100.0) fL MCH (25.0-35.0) pg MCHC (31.0-37.0) g/dL RDW (11.5-15.5) % Plt Count (150-450) k/uL MPV Neutrophils % % Lymphocytes % % Monocytes % % Eosinophils % % Basophils % % Neutrophils # (1.3-7.7) k/uL Lymphocytes # (1.0-4.8) k/uL Monocytes # (0-1.0) k/uL Eosinophils # (0-0.7) k/uL Basophils # (0-0.2) k/uL Sodium (137-145) mmol/L Potassium (3.5-5.1) mmol/L Chloride (98-107) mmol/L Carbon Dioxide (22-30) mmol/L Anion Gap mmol/L BUN (9-20) mg/dL Creatinine (0.66-1.25) mg/dL Est GFR (CKD-EPI)AfAm (>60 ml/min/1.73 sqM) Est GFR (CKD-EPI)NonAf (>60 ml/min/1.73 sqM) Glucose (74-99) mg/dL POC Glucose (mg/dL) 311 H 246 H (70-110) mg/dL POC Glu Roller Helper Geronimo Ceja Maison Troponin I 0.034 (0.000-0.034) ng/mL Lipase (23-300) U/L Serum Alcohol mg/dL Acetone, Qual (Negative) Disposition Clinical Impression: Alcohol abuse, Nausea & vomiting, Alcohol withdrawal, Hyperglycemia Disposition: ADMITTED IP TO THIS HOSP Referrals: Julien Anderson MD [Primary Care Provider] - 1-2 days Time of Disposition: 10:18
[2022-06-24 08:52] LABS: Glucose,Whole Blood 311 mg/dL (70-110)
[2022-06-24] MEDS ORDERED: KETOROLAC 15 MG/ML 1 ML VIAL IVP STA (09:10)
[2022-06-24 10:10] LABS: Glucose,Whole Blood 246 mg/dL (70-110)
[2022-06-24] MEDS ORDERED: THIAMINE 100 MG/ML 2 ML VIAL IM STA (10:18)
[2022-06-24] MEDS ORDERED: DEXTROSE 50% SYRINGE 50 ML IVP PRN (10:23)
[2022-06-24 10:54] LABS: VBG PH 7.34 (7.31-7.41)
[2022-06-24] MEDS ORDERED: D5-0.45% NACL WITH KCL 20MEQ/L 1,000 ML IV SCH (11:00)
[2022-06-24] MEDS: LORazepam 1 MG TAB PO PRN ×3 (11:31→22:09)
[2022-06-24] MEDS ORDERED: ALPRAZolam 0.5 MG TAB PO PRN (12:15)
[2022-06-24] MEDS ORDERED: NALOXONE 0.4 MG/ML 1 ML VIAL IV PRN (12:17)
[2022-06-24 12:25] LABS: African American GFR (CKD) >90 (>60 ml/min/1.73 sqM); Anion Gap 14 mmol/L; Blood Urea Nitrogen 11 mg/dL (9-20); Carbon Dioxide 23 mmol/L (22-30); Chloride 100 mmol/L (98-107); Glucose 243 mg/dL (74-99); Non-African American GFR(CKD) >90 (>60 ml/min/1.73 sqM); Phosphorus 2.5 mg/dL (2.5-4.5); Potassium 4.3 mmol/L (3.5-5.1); Sodium 137 mmol/L (137-145)
[2022-06-24 12:43] LABS: Glucose,Whole Blood 266 mg/dL (70-110)
[2022-06-24] MEDS: CALCIUM CARBONATE LIQUID 500 MG/5 ML CUP PO SCH ×3 (12:44→20:40)
[2022-06-24] MEDS: INSULIN ASPART (NovoLOG) 100 UNIT/ML VIAL SQ SCH ×3 (12:52→20:48)
[2022-06-24] MEDS: diazePAM 5 MG TAB PO SCH ×2 (12:53→20:40)
[2022-06-24] MEDS: METOPROLOL TARTRATE 12.5 MG TAB PO SCH ×2 (13:09→22:01)
[2022-06-24] MEDS: LIPASE 5,000/PROTEASE 17,000/AMYLASE 24,000 PO SCH ×2 (13:23→16:22)
[2022-06-24] MEDS: INSULIN DETEMIR (LEVEMIR) 100 UNIT/ML SYR SQ SCH (13:24)
[2022-06-24 14:02] VITALS: BMI 23.6
--- NOTE | 2022-06-24 16:13 | P.HPIM ---
History of Present Illness H&P Date: 06/24/22 Chief Complaint: Abdominal pain This is a pleasant 41-year-old patient who follows Dr. Julien Anderson. Chronic stable medical conditions include anxiety, chronic pancreatitis, anxiety. Patient going through stress because of divorce and his ex- not going in to see the children. Patient been drinking alcohol on and off. Some periods of being sober. Her last 2-1/2 weeks she started drinking about half a gallon of vodka again. Now presents with nausea vomiting or to 3 days increasing upper epigastric pain. No fever no chills. In the ER patient's blood glucose was in 400s with a bicarb of 15. Serum acetone was negative. Serum alcohol was 89. Last drink was a few hours before coming in. Started IV fluids. Pain control. No fever no chills. Review of systems: GEN.: Tired, decreased appetite EYES: None HEENT: None NECK: None RESPIRATORY: None CARDIOVASCULAR: None GASTROINTESTINAL: As above GENITOURINARY: None MUSCULOSKELETAL: None LYMPHATICS: None HEMATOLOGICAL: None PSYCHIATRY: Anxious] NEUROLOGICAL: None Past medical history to include: Diabetes mellitus, GERD, peripheral neuropathy, alcohol use disorder, seizures from alcohol withdrawal, chronic pancreatitis, anxiety Social history: Has a girlfriend. Smokes 2 cigarettes a day. 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 Divorce. Does smoke marijuana. Drinking excessive alcohol on and off. Physical examination: VITAL SIGNS: 97.7, 108, 16, 137/86, 98% room air GENERAL: BMI 23.7, sitting in bed, uncomfortable awake. EYES: Pupils equal. Conjunctiva normal. HEENT: External appearance of nose and ears normal, oral cavity grossly normal. NECK: JVD not raised; masses not palpable. HEART: First and second heart sounds are normal; no edema. LUNGS: Respiratory rate normal; clear to auscultation. ABDOMEN: Soft, epigastric tenderness, no guarding rigidity, liver spleen not palpable, no masses palpable. PSYCH: [Alert and oriented x3; mood and affect anxious l. MUSCULOSKELETAL:No Clubbing/cyanosis;muscles-grossly intact NEUROLOGICAL: Cranial nerves grossly intact; no facial asymmetry, power and sensation grossly intact. LYMPHATICS: No lymph nodes palpable in the axilla and neck INVESTIGATIONS, reviewed in the clinical context: White count 8 hemoglobin 16 platelets 197 potassium 5.4 bicarb 15 creatinine 0.91 blood glucose 442 Troponin I 0.034 lipase 48. Alcohol 89 serum acetone negative EKG tracing personally reviewed by me-normal sinus rhythm. Assessment and plan: -Nonketotic hyperosmolar hyperglycemia. Patient been vomiting for 2 days. Poor oral intake. Serum acetone negative. IV fluids. -Diabetes mellitus type 2, chronically on insulin, uncontrolled with h yperglycemia Levemir. Sliding scale. Diabetic diet -Chronic pancreatitis secondary to alcoholism Continue pancreatic enzymes -Chronic nicotine dependence, cigarette smoker Nicotine patch -Alcohol use disorder Watch for DTs. Valium. Counseling -Metabolic acidosis, multifactorial IV bicarbonate drip -Acute gastritis likely from alcoholism. Epigastrium is tender. No guarding rigidity. PPI. Liquid Tums. Full liquid diet. Subcu Lovenox. Past Medical History Past Medical History: Diabetes Mellitus, GERD/Reflux Additional Past Medical History / Comment(s): IDDM pt states he has been told he is type 1 and told he is type II, neuropathy occasionally in bilateral toes/fingers, DKAs, ETOH abuse, past DT's/seizure when withdrawing from alcohol said last sz possibly a year ago, chronic pancreatitis History of Any Multi-Drug Resistant Organisms: None Reported Past Surgical History: No Surgical Hx Reported Additional Past Surgical History / Comment(s): Pt has never had surgery Past Anesthesia/Blood Transfusion Reactions: Unable to Obtain Additional Past Anesthesia/Blood Transfusion Reaction / Comment(s): Pt has never had surgery. Past Psychological History: Anxiety Additional Psychological History / Comment(s): Pt resides with his dad. He has a glucometer. Smoking Status: Current every day smoker, Vaper Past Alcohol Use History: Abuse, Daily, Heavy Additional Past Alcohol Use History / Comment(s): Pt started smoking in 1995 and smokes approximately 1-2 cigarettes a day. He states he vapes when he drives. Pt states he used to drink vodka 1/2 gal/day now he drinks 30 beers/day . Past Drug Use History: None Reported - Past Family History Father Family Medical History: Diabetes Mellitus Mother History Unknown: Yes Additional Family Medical History / Comment(s): Pt does not have contact with his mother. Medications and Allergies Home Medications Medication Instructions Recorded Confirmed Type INSULIN LISPRO (HumaLOG) [humaLOG] See Protocol SQ AC-TID PRN 12/30/20 06/24/22 History Pantoprazole Sodium 20 mg PO DAILY 03/12/22 06/24/22 History Insulin Glargine [Lantus Vial] 25 unit SQ DAILY 04/04/22 06/24/22 History Lipase/Protease/Amylase [Zenpep Dr 2 each PO AC-TID #90 cap 05/29/22 06/24/22 Rx 5,000 Unit Capsule] Thiamine [Vitamin B-1] 100 mg PO DAILY #30 tab 05/29/22 06/24/22 Rx chlordiazePOXIDE HCl [Librium] 25 mg PO TID 3 Days #12 capsule 05/31/22 06/24/22 Rx ALPRAZolam [Xanax] 0.5 mg PO BID PRN 06/24/22 06/24/22 History Allergies Allergy/AdvReac Type Severity Reaction Status Date / Time No Known Allergies Allergy Verified 06/24/22 11:23 Physical Exam Vitals: Vital Signs Temp Pulse Pulse Resp BP BP Pulse Ox 06/24/22 12:00 98 F 91 18 144/83 98 06/24/22 09:20 93 16 126/82 100 06/24/22 06:38 97.7 F 108 H 16 137/86 98 Intake and Output 06/24/22 06/24/22 06/24/22 06:59 14:59 22:59 Intake Total 118 Balance 118 Intake: Oral 118 Other: Voiding Method Toilet Urinal Weight 74.843 kg 74.843 kg Results CBC & Chem 7: 06/24/22 07:54 06/24/22 11:30 Labs: Abnormal Lab Results - Last 24 Hours (Table) 06/24/22 06/24/22 06/24/22 Range/Units 07:28 07:54 08:50 VBG HCO3 (24-28) mmol/L Potassium 5.4 H (3.5-5.1) mmol/L Chloride 96 L (98-107) mmol/L Carbon Dioxide 15 L (22-30) mmol/L Creatinine (0.66-1.25) mg/dL Glucose 442 H (74-99) mg/dL POC Glucose (mg/dL) 460 H 311 H (70-110) mg/dL 06/24/22 06/24/22 06/24/22 Range/Units 10:08 10:13 11:30 VBG HCO3 20 L (24-28) mmol/L Potassium (3.5-5.1) mmol/L Chloride (98-107) mmol/L Carbon Dioxide (22-30) mmol/L Creatinine 0.62 L (0.66-1.25) mg/dL Glucose 243 H (74-99) mg/dL POC Glucose (mg/dL) 246 H (70-110) mg/dL 06/24/22 Range/Units 12:40 VBG HCO3 (24-28) mmol/L Potassium (3.5-5.1) mmol/L Chloride (98-107) mmol/L Carbon Dioxide (22-30) mmol/L Creatinine (0.66-1.25) mg/dL Glucose (74-99) mg/dL POC Glucose (mg/dL) 266 H (70-110) mg/dL Thrombosis Risk Factor Assmnt - Choose All That Apply Any of the Below Risk Factors Present?: No Other Risk Factors: No Other congenital or acquired thrombophilia - If yes, enter type in comment: No Thrombosis Risk Factor Assessment Level: Very Low Risk
[2022-06-24] MEDS: HYDROmorphone 0.5 MG/0.5 ML SYRINGE IVP PRN ×2 (16:23→20:40)
[2022-06-24 16:36] LABS: Glucose,Whole Blood 144 mg/dL (70-110)
[2022-06-24 16:37] LABS: African American GFR (CKD) >90 (>60 ml/min/1.73 sqM); Anion Gap 10 mmol/L; Blood Urea Nitrogen 13 mg/dL (9-20); Carbon Dioxide 28 mmol/L (22-30); Chloride 101 mmol/L (98-107); Glucose 160 mg/dL (74-99); Non-African American GFR(CKD) >90 (>60 ml/min/1.73 sqM); Phosphorus 2.2 mg/dL (2.5-4.5); Potassium 3.9 mmol/L (3.5-5.1); Sodium 139 mmol/L (137-145)
[2022-06-24] MEDS: DEXTROSE 5% IN WATER 1,000 ML with SODIUM BICARB (1 MEQ/ML) 150 ML IV SCH ×2 (16:47→22:10)
[2022-06-24] MEDS: NICOTINE 7MG/24HR PATCH TRANSDERM SCH (18:01)
[2022-06-24 19:59] LABS: Glucose,Whole Blood 99 mg/dL (70-110)
[2022-06-24] MEDS: ONDANSETRON 4 MG/2 ML VIAL IVP PRN (22:09)
[2022-06-25] MEDS: LORazepam 1 MG TAB PO PRN ×5 (00:37→20:27)
[2022-06-25] MEDS: HYDROmorphone 0.5 MG/0.5 ML SYRINGE IVP PRN ×3 (00:38→09:01)
[2022-06-25 02:11] LABS: Glucose,Whole Blood 127 mg/dL (70-110)
[2022-06-25] MEDS: DEXTROSE 5% IN WATER 1,000 ML with SODIUM BICARB (1 MEQ/ML) 150 ML IV SCH (04:53)
[2022-06-25 06:04] LABS: Glucose,Whole Blood 99 mg/dL (70-110)
[2022-06-25] MEDS: diazePAM 5 MG TAB PO SCH (06:13)
[2022-06-25] MEDS: LIPASE 5,000/PROTEASE 17,000/AMYLASE 24,000 PO SCH ×3 (06:13→16:48)
[2022-06-25] MEDS: CALCIUM CARBONATE LIQUID 500 MG/5 ML CUP PO SCH ×4 (06:14→20:26)
[2022-06-25] MEDS: INSULIN ASPART (NovoLOG) 100 UNIT/ML VIAL SQ SCH ×4 (06:14→20:27)
[2022-06-25 08:54] LABS: Basophils % (A) 1 %; Eosinophils # (A) 0.1 k/uL (0-0.7); Eosinophils % (A) 3 %; HCT 37.6 % (39.0-53.0); HGB 13.2 gm/dL (13.0-17.5); Lymphocytes # (A) 1.3 k/uL (1.0-4.8); Lymphocytes % (A) 33 %; MCH 32.9 pg (25.0-35.0); MCHC 35.1 g/dL (31.0-37.0); MCV 93.8 fL (80.0-100.0); Monocytes # (A) 0.2 k/uL (0-1.0); Monocytes % (A) 5 %; Neutrophils # (A) 2.1 k/uL (1.3-7.7); Neutrophils % (A) 56 %; Platelet Count 127 k/uL (150-450); RBC 4.01 m/uL (4.30-5.90); RDW 12.3 % (11.5-15.5); WBC 3.8 k/uL (3.8-10.6)
[2022-06-25] MEDS: THIAMINE 100 MG TAB PO SCH (08:58)
[2022-06-25] MEDS: INSULIN DETEMIR (LEVEMIR) 100 UNIT/ML SYR SQ SCH (08:58)
[2022-06-25] MEDS: METOPROLOL TARTRATE 12.5 MG TAB PO SCH ×3 (08:58→20:26)
[2022-06-25] MEDS: NICOTINE 7MG/24HR PATCH TRANSDERM SCH (08:59)
[2022-06-25 09:11] LABS: ALT 40 U/L (4-49); AST 34 U/L (17-59); African American GFR (CKD) >90 (>60 ml/min/1.73 sqM); Albumin 3.7 g/dL (3.5-5.0); Alkaline Phosphatase 61 U/L (38-126); Anion Gap 7 mmol/L; Blood Urea Nitrogen 14 mg/dL (9-20); Calcium 8.3 mg/dL (8.4-10.2); Carbon Dioxide 36 mmol/L (22-30); Chloride 92 mmol/L (98-107); Glucose 246 mg/dL (74-99); Non-African American GFR(CKD) >90 (>60 ml/min/1.73 sqM); Potassium 3.4 mmol/L (3.5-5.1); Sodium 135 mmol/L (137-145); Total Bilirubin 2.5 mg/dL (0.2-1.3); Total Protein 5.3 g/dL (6.3-8.2)
[2022-06-25] MEDS: INSULIN REGULAR 100 UNIT in SODIUM CHLORIDE 0.9% 100 ML IV SCH (10:21)
[2022-06-25] MEDS ORDERED: POTASSIUM CHLORIDE ER 20 MEQ TAB.ER PO STA (11:10)
[2022-06-25] MEDS: SODIUM CHLORIDE 0.9% 1,000 ML IV SCH ×2 (11:55→20:31)
[2022-06-25 12:01] LABS: Glucose,Whole Blood 240 mg/dL (70-110)
[2022-06-25] MEDS: LORazepam 0.5 MG TAB PO PRN (14:21)
--- NOTE | 2022-06-25 16:32 | P.PN ---
Progress Note - Text Progress Note Date: 06/25/22 Chief Complaint: Abdominal pain This is a pleasant 41-year-old patient who follows Dr. Julien Anderson. Chronic stable medical conditions include anxiety, chronic pancreatitis, anxiety. Patient going through stress because of divorce and his ex- not going in to see the children. Patient been drinking alcohol on and off. Some periods of being sober. Her last 2-1/2 weeks she started drinking about half a gallon of vodka again. Now presents with nausea vomiting or to 3 days increasing upper epigastric pain. No fever no chills. In the ER patient's blood glucose was in 400s with a bicarb of 15. Serum acetone was negative. Serum alcohol was 89. Last drink was a few hours before coming in. Started IV fluids. Pain control. No fever no chills. Admitted with nonketotic hyperosmolar hyperglycemia, acute alcohol intoxication, acute gastritis, metabolic acidosis. 06/25/2022: Laying in bed. Vomited once last night. On scheduled Valium. Did tolerate full liquid diet. Sliding epigastric pain. Valium cutback to 2 mg 3 times a day. Advance to a ground diet. CARMELO Saxena. Discussed with patient. PPI Active Medications Alprazolam (Alprazolam 0.5 Mg Tab) 0.5 mg PO BID PRN PRN Reason: Anxiety Last Admin: 06/25/22 14:15 Dose: 0.5 mg Lipase/Protease/Amylase (Lipase 5,000/Protease 17,000/Amylase 24,000) 2 each PO AC-TID [facility] Last Admin: 06/25/22 12:05 Dose: 2 each Calcium Carbonate/Glycine (Calcium Carbonate Liquid 500 Mg/5 Ml Cup) 500 mg PO ACHS [facility] Last Admin: 06/25/22 11:56 Dose: Not Given Dextrose/Water (Dextrose 50% Syringe 50 Ml) 50 ml IVP PER PROTOCOL PRN; Protocol PRN Reason: Hypoglycemia Diazepam (Diazepam 2 Mg Tab) 2 mg PO TID [facility] Insulin Human Regular 100 unit (/ Sodium Chloride) 101 mls @ 7.559 mls/hr IV .[id number] [facility]; Protocol Last Admin: 06/25/22 10:21 Dose: Not Given Sodium Chloride (Saline 0.9%) 1,000 mls @ 100 mls/hr IV .Q10H [facility] Last Admin: 06/25/22 11:55 Dose: 100 mls/hr Insulin Aspart (Insulin Aspart (Novolog) 100 Unit/Ml Vial) 0 unit SQ ACHS [facility]; Protocol Last Admin: 06/25/22 11:55 Dose: 4 unit Insulin Detemir (Insulin Detemir (Levemir) 100 Unit/Ml Syr) 20 unit SQ DAILY@0700 [facility] Last Admin: 06/25/22 08:58 Dose: 20 unit Lorazepam (Lorazepam 0.5 Mg Tab) 0.5 mg PO Q4HR PRN PRN Reason: Ciwa 4 To 5 Last Admin: 06/25/22 14:21 Dose: 0.5 mg Lorazepam (Lorazepam 1 Mg Tab) 2 mg PO Q3HR PRN PRN Reason: Ciwa 8 To 9 Last Admin: 06/25/22 11:55 Dose: 2 mg Lorazepam (Lorazepam 1 Mg Tab) 1 mg PO Q4HR PRN PRN Reason: Ciwa 6 To 7 Lorazepam (Lorazepam 1 Mg Tab) 2 mg PO Q2HR PRN PRN Reason: Ciwa 10 or greater Last Admin: 06/25/22 04:15 Dose: 2 mg Metoprolol Tartrate (Metoprolol Tartrate 12.5 Mg Tab) 12.5 mg PO BID [facility] Last Admin: 06/25/22 09:03 Dose: Not Given Miscellaneous Information (Magnesium Replacement Protocol 1 Each Misc) 1 each MISCELLANE DAILY PRN; Protocol PRN Reason: Per Protocol Miscellaneous Information (Potassium Replacement Protocol 1 Each Misc) 1 each MISCELLANE DAILY PRN PRN Reason: Per Protocol Naloxone HCl (Naloxone 0.4 Mg/Ml 1 Ml Vial) 0.2 mg IV Q2M PRN PRN Reason: Opioid Reversal Nicotine (Nicotine 7mg/24hr Patch) 1 patch TRANSDERM DAILY [facility] Last Admin: 06/25/22 08:59 Dose: Not Given Ondansetron HCl (Ondansetron 4 Mg/2 Ml Vial) 4 mg IVP Q6HR PRN PRN Reason: Nausea And Vomiting Last Admin: 06/24/22 22:09 Dose: 4 mg Thiamine HCl (Thiamine 100 Mg Tab) 100 mg PO DAILY [facility] Last Admin: 06/25/22 08:58 Dose: 100 mg Past medical history to include: Diabetes mellitus, GERD, peripheral neuropathy, alcohol use disorder, seizures from alcohol withdrawal, chronic pancreatitis, anxiety Social history: Has a girlfriend. Smokes 2 cigarettes a day. 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 Divorce. Does smoke marijuana. Drinking excessive alcohol on and off. Physical examination: VITAL SIGNS: 97.4, 82, 16, 128/87, 99% room air GENERAL: Laying in bed, but more comfortable today. EYES: Pupils equal. Conjunctiva normal. HEENT: External appearance of nose and ears normal, oral cavity grossly normal. NECK: JVD not raised; masses not palpable. HEART: First and second heart sounds are normal; no edema. LUNGS: Respiratory rate normal; clear to auscultation. ABDOMEN: Soft, decreased epigastric tenderness, no guarding rigidity, liver spleen not palpable, no masses palpable. PSYCH: [Alert and oriented x3; mood and affect anxious l. INVESTIGATIONS, reviewed in the clinical context: 06/25/2022: Potassium 3.8 hemoglobin 13.2 which is 127 potassium 3.4 BUN 14 creatinine 0.60 White count 8 hemoglobin 16 platelets 197 potassium 5.4 bicarb 15 creatinine 0.91 blood glucose 442 Troponin I 0.034 lipase 48. Alcohol 89 serum acetone negative EKG tracing personally reviewed by me-normal sinus rhythm. Assessment and plan: -Nonketotic hyperosmolar hyperglycemia. Patient been vomiting for 2 days. Poor oral intake. Serum acetone negative. IV fluids.: Better -Diabetes mellitus type 2, chronically on insulin, uncontrolled with hyperglycemia Levemir. Sliding scale. Diabetic diet -Chronic pancreatitis secondary to alcoholism Continue pancreatic enzymes -Chronic nicotine dependence, cigarette smoker Nicotine patch -Alcohol use disorder Watch for DTs. Valium decreased to 2 mg 3 times a day. Counseling -Metabolic acidosis, multifactorial: Corrected IV bicarbonate drip-discontinue -Acute gastritis likely from alcoholism. Epigastrium is tender. No guarding rigidity. PPI. Liquid Tums. Full liquid diet. Subcu Lovenox. DC Dilaudid. Advanced to ground diet. Increase activity. DC sodium bicarbonate drip. Discussed with patient.
[2022-06-25 16:42] LABS: Glucose,Whole Blood 142 mg/dL (70-110)
[2022-06-25] MEDS: diazePAM 2 MG TAB PO SCH ×2 (16:43→21:22)
[2022-06-25] MEDS: FAMOTIDINE 20 MG TAB PO SCH ×2 (16:43→20:26)
[2022-06-25] MEDS: PANTOPRAZOLE 40 MG TABLET PO SCH (17:42)
[2022-06-25 19:58] LABS: Glucose,Whole Blood 224 mg/dL (70-110)
[2022-06-25] MEDS: ONDANSETRON 4 MG/2 ML VIAL IVP PRN (20:27)
[2022-06-26] MEDS: LORazepam 1 MG TAB PO PRN ×2 (00:15→09:26)
[2022-06-26] MEDS: FAMOTIDINE 20 MG TAB PO SCH (09:11)
[2022-06-26] MEDS: METOPROLOL TARTRATE 12.5 MG TAB PO SCH ×2 (09:12→09:13)
[2022-06-26] MEDS: diazePAM 2 MG TAB PO SCH (09:12)
[2022-06-26] MEDS: THIAMINE 100 MG TAB PO SCH (09:12)
[2022-06-26] MEDS: CALCIUM CARBONATE LIQUID 500 MG/5 ML CUP PO SCH ×2 (09:15→11:20)
[2022-06-26 09:23] VITALS: RESP 16
[2022-06-26] MEDS: INSULIN ASPART (NovoLOG) 100 UNIT/ML VIAL SQ SCH ×2 (11:20→12:04)
[2022-06-26] MEDS: PANTOPRAZOLE 40 MG TABLET PO SCH (11:20)
[2022-06-26] MEDS: LIPASE 5,000/PROTEASE 17,000/AMYLASE 24,000 PO SCH ×2 (11:20→13:29)
[2022-06-26] MEDS: INSULIN DETEMIR (LEVEMIR) 100 UNIT/ML SYR SQ SCH (11:20)
[2022-06-26 11:37] LABS: Glucose,Whole Blood 163 mg/dL (70-110)
[2022-06-26 11:55] LABS: Glucose,Whole Blood 219 mg/dL (70-110)
[2022-06-26 12:01] VITALS: BP 121/82; PULSE 77; TEMP 97.5
[2022-06-26] MEDS: NICOTINE 7MG/24HR PATCH TRANSDERM SCH (12:04)
[2022-06-26] MEDS: LORazepam 0.5 MG TAB PO PRN (13:29)
[2022-06-26] MEDS: SODIUM CHLORIDE 0.9% 1,000 ML IV SCH (13:36)
--- NOTE | 2022-06-26 18:19 | P.DS ---
Providers Date of admission: 06/24/22 10:21 Expected date of discharge: 06/26/22 Attending physician: Julien Anderson [facility] Course: Chief Complaint: Abdominal pain This is a pleasant 41-year-old patient who follows Dr. Julien Anderson. Chronic stable medical conditions include anxiety, chronic pancreatitis, anxiety. Patient going through stress because of divorce and his ex- not going in to see the children. Patient been drinking alcohol on and off. Some periods of being sober. Her last 2-1/2 weeks she started drinking about half a gallon of vodka again. Now presents with nausea vomiting or to 3 days increasing upper epigastric pain. No fever no chills. In the ER patient's blood glucose was in 400s with a bicarb of 15. Serum acetone was negative. Serum alcohol was 89. Last drink was a few hours before coming in. Started IV fluids. Pain control. No fever no chills. Admitted with nonketotic hyperosmolar hyperglycemia, acute alcohol intoxication, acute gastritis, metabolic acidosis. 06/25/2022: Laying in bed. Vomited once last night. On scheduled Valium. Did tolerate full liquid diet. Sliding epigastric pain. Valium cutback to 2 mg 3 times a day. Advance to a ground diet. CARMELO Saxena. Discussed with patient. PPI 06/26/2022: Patient had a burger from outside. Taken off Valium. Alcohol distress rest at length with the patient. Also smoking. Lifestyle changes again discussed. Questions answered. Patient may return to work on Tuesday morning. Discussion and discharge planning more than 35 minutes Past medical history to include: Diabetes mellitus, GERD, peripheral neuropathy, alcohol use disorder, seizures from alcohol withdrawal, chronic pancreatitis, anxiety Social history: Has a girlfriend. Smokes 2 cigarettes a day. 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 Divorce. Does smoke marijuana. Drinking excessive alcohol on and off. Physical examination: VITAL SIGNS: 97.5, 77, 16, 1 21 x 82, 97% GENERAL: Laying in bed, comfortable EYES: Pupils equal. Conjunctiva normal. HEENT: External appearance of nose and ears normal, oral cavity grossly normal. NECK: JVD not raised; masses not palpable. HEART: First and second heart sounds are normal; no edema. LUNGS: Respiratory rate normal; clear to auscultation. ABDOMEN: Soft, minimal epigastric tenderness, no guarding rigidity, liver spleen not palpable, no masses palpable. PSYCH: [Alert and oriented x3; mood and affect anxious l. INVESTIGATIONS, reviewed in the clinical context: 06/25/2022: Potassium 3.8 hemoglobin 13.2 which is 127 potassium 3.4 BUN 14 creatinine 0.60 White count 8 hemoglobin 16 platelets 197 potassium 5.4 bicarb 15 creatinine 0.91 blood glucose 442 Troponin I 0.034 lipase 48. Alcohol 89 serum acetone negative EKG tracing personally reviewed by me-normal sinus rhythm. Assessment and plan: -Nonketotic hyperosmolar hyperglycemia. Patient been vomiting for 2 days. Poor oral intake. Serum acetone negative. IV fluids.: Improved -Diabetes mellitus type 2, chronically on insulin, uncontrolled with hyperglycemia Levemir 25 units. Sliding scale. Diabetic diet -Chronic pancreatitis secondary to alcoholism Continue pancreatic enzymes -Chronic nicotine dependence, cigarette smoker Nicotine patch -Alcohol use disorder Received Valium. Counseling -Metabolic acidosis, multifactorial: Corrected IV bicarbonate drip-discontinue -Acute gastritis likely from alcoholism. Epigastrium is tender. No guarding rigidity. Protonix increased to twice a day Liquid Tums. Tolerating diet Disposition: Home Plan - Discharge Summary Discharge Rx Participant: No New Discharge Prescriptions: New Nicotine 7Mg/24Hr Patch [Habitrol] 1 patch TRANSDERM DAILY #14 patch Pantoprazole [Protonix] 40 mg PO AC-BID #60 tab Continue INSULIN LISPRO (HumaLOG) [humaLOG] See Protocol SQ AC-TID PRN PRN Reason: HIGH BLOOD SUGAR Insulin Glargine [Lantus Vial] 25 unit SQ DAILY Thiamine [Vitamin B-1] 100 mg PO DAILY #30 tab chlordiazePOXIDE HCl [Librium] 25 mg PO TID 3 Days #12 capsule Lipase/Protease/Amylase [Isidrop Dr 5,000 Unit Capsule] 2 each PO AC-TID #90 cap ALPRAZolam [Xanax] 0.5 mg PO BID PRN PRN Reason: Anxiety Discontinued Pantoprazole Sodium 20 mg PO DAILY Discharge Medication List INSULIN LISPRO (HumaLOG) [humaLOG] See Protocol SQ AC-TID PRN 12/30/20 [History] Insulin Glargine [Lantus Vial] 25 unit SQ DAILY 04/04/22 [History] Lipase/Protease/Amylase [Zenpep Dr 5,000 Unit Capsule] 2 each PO AC-TID #90 cap 05/29/22 [Rx] Thiamine [Vitamin B-1] 100 mg PO DAILY #30 tab 05/29/22 [Rx] ALPRAZolam [Xanax] 0.5 mg PO BID PRN 06/24/22 [History] Nicotine 7Mg/24Hr Patch [Habitrol] 1 patch TRANSDERM DAILY #14 patch 06/26/22 [Rx] Pantoprazole [Protonix] 40 mg PO AC-BID #60 tab 06/26/22 [Rx] chlordiazePOXIDE HCl [Librium] 25 mg PO TID 3 Days #12 capsule 06/26/22 [Rx] Follow up Appointment(s)/Referral(s): Julien Anderson MD [Primary Care Provider] - 1-2 days Patient Instructions/Handouts: Abuse of Alcohol (DC), Acute Nausea and Vomiting (DC), Alcohol Withdrawal (DC), Diabetic Hyperglycemia (DC) Activity/Diet/Wound Care/Special Instructions: dcafter supper today Discharge/Stand Alone Forms: AA Meetings 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
== END 2022-06-26 16:46 | disposition home or self-care (01) | DRG 638 ==
LOC: EC 06:16 → 3SCARD 10:21
PROVIDERS: ADMIT Family Medicine; ATTEND Family Medicine
DX: E11.00 Type 2 diabetes mellitus with hyperosmolarity without nonketotic hyperglycemic-hyperosmolar coma (NKHHC) (principal); F10.239 Alcohol dependence with withdrawal, unspecified; K86.0 Alcohol-induced chronic pancreatitis; K29.20 Alcoholic gastritis without bleeding; F17.290 Nicotine dependence, other tobacco product, uncomplicated; E11.42 Type 2 diabetes mellitus with diabetic polyneuropathy; E86.1 Hypovolemia; F10.229 Alcohol dependence with intoxication, unspecified; F41.9 Anxiety disorder, unspecified; K21.9 Gastro-esophageal reflux disease without esophagitis; R56.9 Unspecified convulsions; Z79.4 Long term (current) use of insulin; Y90.4 Blood alcohol level of 80-99 mg/100 ml; Z79.899 Other long term (current) drug therapy; Z71.41 Alcohol abuse counseling and surveillance of alcoholic
CPT/HCPCS: 36415; 80051; 80053; 80320; 82009; 82565; 82803; 82947; 83036; 83690; 83735; 84100; 84484; 84520; 85025; 93005; 96361; 96374; 96375; 99284

== ENCOUNTER 2022-08-03 21:04 | Emergency (ER) | payer OTHER ==
--- NOTE | 2022-08-03 21:56 | XR ---
EXAMINATION TYPE: XR wrist complete RT, XR hand complete RT DATE OF EXAM: 08/03/2022 9:44 PM INDICATION: Patient age:Male; 41 years old; Reason for study: Right hand and wrist injury/pain; COMPARISON: None TECHNIQUE: Right wrist and hand wrist were examined in the. Frontal, navicular, lateral, and oblique . FINDINGS: No acute osseous pathology, joint dislocation, or joint effusion. No evidence of any soft tissue swelling is seen. IMPRESSION: No acute osseous pathology.
--- NOTE | 2022-08-03 22:26 | ED ---
Upper Extremity HPI - General Chief Complaint: Extremity Injury, Upper Stated Complaint: Hand Injury Time Seen by Provider: 08/03/22 21:28 Source: patient, RN notes reviewed Mode of arrival: ambulatory Limitations: no limitations - History of Present Illness Initial Comments: This is a left-hand dominant 41-year-old male states he fell on Tuesday and inj ured his right hand and wrist. Patient states he is having sharp pain to the dorsum of the hand which is exacerbated by movement. Denying any distal or proximal injuries. States it does radiate into the wrist a bit. No distal paresthesias. No other injuries. No headache, no fever or chills, no changes in vision or hearing, no sore throat or difficulty with speech, no neck pain, no chest pain or shortness of breath, no abdominal pain, no nausea or vomiting, no changes in urination or bowel movements, no numbness or tingling, no skin rashes or lesions. Past medical, surgical, social, and family history reviewed. MD Complaint: Injury to:: right, wrist, hand - Related Data Home Medications Medication Instructions Recorded Confirmed INSULIN LISPRO (HumaLOG) [humaLOG] See Protocol SQ AC-TID PRN 12/30/20 06/24/22 Insulin Glargine [Lantus Vial] 25 unit SQ DAILY 04/04/22 06/24/22 ALPRAZolam [Xanax] 0.5 mg PO BID PRN 06/24/22 06/24/22 Previous Rx's Medication Instructions Recorded Lipase/Protease/Amylase [Zenpep Dr 2 each PO AC-TID #90 cap 05/29/22 5,000 Unit Capsule] Thiamine [Vitamin B-1] 100 mg PO DAILY #30 tab 05/29/22 Nicotine 7Mg/24Hr Patch [Habitrol] 1 patch TRANSDERM DAILY #14 patch 06/26/22 Pantoprazole [Protonix] 40 mg PO AC-BID #60 tab 06/26/22 chlordiazePOXIDE HCl [Librium] 25 mg PO TID 3 Days #12 capsule 06/26/22 Naproxen [Naprosyn] 375 mg PO Q12HR PRN #20 tablet 08/03/22 Allergies Allergy/AdvReac Type Severity Reaction Status Date / Time No Known Allergies Allergy Verified 08/03/22 21:24 Review of Systems ROS Statement: Those systems with pertinent positive or pertinent negative responses have been documented in the HPI. ROS Other: All systems not noted in ROS Statement are negative. Past Medical History Past Medical History: Diabetes Mellitus, GERD/Reflux Additional Past Medical History / Comment(s): IDDM pt states he has been told he is type 1 and told he is type II, neuropathy occasionally in bilateral toes/fingers, DKAs, ETOH abuse, past DT's/seizure when withdrawing from alcohol said last sz possibly a year ago, chronic pancreatitis History of Any Multi-Drug Resistant Organisms: None Reported Past Surgical History: No Surgical Hx Reported Additional Past Surgical History / Comment(s): Pt has never had surgery Past Anesthesia/Blood Transfusion Reactions: Unable to Obtain Additional Past Anesthesia/Blood Transfusion Reaction / Comment(s): Pt has never had surgery. Past Psychological History: Anxiety Smoking Status: Current every day smoker, Vaper Past Alcohol Use History: Abuse, Daily, Heavy Past Drug Use History: None Reported - Past Family History Father Family Medical History: Diabetes Mellitus Mother History Unknown: Yes Additional Family Medical History / Comment(s): Pt does not have contact with his mother. General Exam Limitations: no limitations General appearance: alert, in no apparent distress Head exam: Present: atraumatic, normocephalic, normal inspection Eye exam: Present: normal appearance, PERRL, EOMI. Absent: scleral icterus, conjunctival injection, periorbital swelling ENT exam: Present: normal exam, normal oropharynx, mucous membranes moist, normal external ear exam. Absent: mucous membranes dry Neck exam: Present: normal inspection, full ROM. Absent: tenderness, meningismus, lymphadenopathy Respiratory exam: Present: normal lung sounds bilaterally. Absent: respiratory distress, wheezes, rales, rhonchi, stridor Cardiovascular Exam: Present: regular rate, normal rhythm, normal heart sounds. Absent: systolic murmur, diastolic murmur, rubs, gallop, clicks GI/Abdominal exam: Present: soft. Absent: tenderness Extremities exam: Present: normal inspection, full ROM, tenderness (Patient has tenderness dorsum of the right hand and right wrist. No snuffbox tenderness.), normal capillary refill, other (No break in skin integrity. No abrasion.). Absent: pedal edema, joint swelling, calf tenderness Back exam: Present: normal inspection Neurological exam: Present: alert, oriented X3, CN II-XII intact Psychiatric exam: Present: normal affect, normal mood Skin exam: Present: warm, dry, intact, normal color. Absent: rash Course Vital Signs 08/03/22 08/03/22 21:22 22:31 Temperature 98.1 F 97.7 F Pulse Rate 95 89 Respiratory 18 17 Rate Blood Pressure 116/80 122/77 O2 Sat by Pulse 98 96 Oximetry Medical Decision Making - Medical Decision Making Differential diagnosis: Fracture, sprain, contusion Independent interpretation of the plain film x-rays of the right hand and wrist read by me reveal no evidence of fracture or dislocation. No soft tissue changes. I reviewed the radiologist's interpretation. Discussed conservative therapy. All questions answered. Patient discharged Patient was told to return to the ER for any signs or symptoms worsen. Told to return immediately if any other problems arise. All questions answered. Treatment plan discussed. Patient in agreement Every effort has been made to ensure accuracy of this dictation. However, due to the limitations of electronic medical records and dictation devices, errors in charting still occur. Supervising physician Dr. Drew - Radiology Data Radiology results: image reviewed Disposition Clinical Impression: Contusion of right hand, Sprain and strain of right hand Disposition: HOME SELF-CARE Condition: Good Instructions (If sedation given, give patient instructions): Hand Sprain (ED) Additional Instructions: Follow-up with your regular physician as directed. Return to the ER immediately if any symptoms worsen, new symptoms arise, or any other problems develop. Prescriptions: Naproxen [Naprosyn] 375 mg PO Q12HR PRN #20 tablet PRN Reason: Pain Is patient prescribed a controlled substance at d/c from ED?: No Referrals: Julien Anderson MD [Primary Care Provider] - 08/10/22 Time of Disposition: 22:25
[2022-08-03 22:32] VITALS: BP 122/77; PULSE 89; RESP 17; TEMP 97.7
== END 2022-08-03 22:32 | disposition home or self-care (01) ==
LOC: EC 21:04
DX: S66.911A Strain of unspecified muscle, fascia and tendon at wrist and hand level, right hand, initial encounter (principal); F17.290 Nicotine dependence, other tobacco product, uncomplicated; E11.9 Type 2 diabetes mellitus without complications; F41.9 Anxiety disorder, unspecified; Z79.4 Long term (current) use of insulin; Z79.899 Other long term (current) drug therapy; W19.XXXA Unspecified fall, initial encounter
CPT/HCPCS: 99283

== ENCOUNTER 2022-09-03 05:49 | Inpatient (IN) | payer OTHER ==
[2022-09-03] MEDS ORDERED: SODIUM CHLORIDE 0.9% 1,000 ML IV STA ×2 (06:08→07:12)
[2022-09-03] MEDS ORDERED: KETOROLAC 15 MG/ML 1 ML VIAL IVP STA (06:08)
[2022-09-03] MEDS ORDERED: PANTOPRAZOLE 40 MG/10 ML VIAL IVP STA (06:08)
[2022-09-03] MEDS ORDERED: ONDANSETRON 4 MG/2 ML VIAL IVP STA (06:08)
--- NOTE | 2022-09-03 06:21 | ED ---
Abdominal Pain HPI - General Chief Complaint: Abdominal Pain Stated Complaint: Pancreatitis Time Seen by Provider: 09/03/22 06:06 Source: patient, RN notes reviewed Mode of arrival: ambulatory Limitations: no limitations - History of Present Illness Initial Comments: This is a 41-year-old male with a past medical history of diabetes mellitus, chronic alcoholism, and chronic pancreatitis who presents to the emergency department for epigastric pain and chest pain. Abdominal pain started a few hours prior to arrival and is associated with nausea and vomiting. States that this feels similar to an episode of pancreatitis. Additionally, he states that he last consumed alcohol 24 hours ago. He had approximately a half gallon of vodka, which is what he states that he uses most days. He has a history of withdrawal seizures, which often occur around the 24-hour trey. The chest pain started last night at around 9 PM and has persisted. States that this is intermittent in nature and he has associated shortness of breath. Denies any personal or family history of cardiac issues. Patient states that he is also worried that he is in diabetic ketoacidosis because he feels confused. He is on Lantus once daily and humalog three times daily. Reports taking his medication as prescribed. Denies any changes in urinary or bowel habits. Denies any fevers, chills, sore throat, cough, palpitations, diarrhea, back pain, or headaches. MD Complaint: abdominal pain, other (Chest pain, SOB) Location: epigastric Associated Symptoms: nausea, vomiting - Related Data Home Medications Medication Instructions Recorded Confirmed INSULIN LISPRO (HumaLOG) [humaLOG] See Protocol SQ AC-TID 12/30/20 09/03/22 Insulin Glargine [Lantus Vial] 25 unit SQ DAILY 04/04/22 09/03/22 ALPRAZolam [Xanax] 0.5 mg PO BID PRN 06/24/22 09/03/22 Folic Acid 0.4 mg PO DAILY 09/03/22 09/03/22 traZODone HCL [Desyrel] 50 mg PO HS 09/03/22 09/03/22 Previous Rx's Medication Instructions Recorded Thiamine [Vitamin B-1] 100 mg PO DAILY #30 tab 05/29/22 Pantoprazole [Protonix] 40 mg PO AC-BID #60 tab 06/26/22 Allergies Allergy/AdvReac Type Severity Reaction Status Date / Time No Known Allergies Allergy Verified 09/03/22 09:13 Review of Systems ROS Statement: Those systems with pertinent positive or pertinent negative responses have been documented in the HPI. ROS Other: All systems not noted in ROS Statement are negative. Past Medical History Past Medical History: Diabetes Mellitus, GERD/Reflux Additional Past Medical History / Comment(s): IDDM pt states he has been told he is type 1 and told he is type II, neuropathy occasionally in bilateral toes/fingers, DKAs, ETOH abuse, past DT's/seizure when withdrawing from alcohol said last sz possibly a year ago, chronic pancreatitis History of Any Multi-Drug Resistant Organisms: None Reported Past Surgical History: No Surgical Hx Reported Additional Past Surgical History / Comment(s): Pt has never had surgery Past Anesthesia/Blood Transfusion Reactions: Unable to Obtain Additional Past Anesthesia/Blood Transfusion Reaction / Comment(s): Pt has never had surgery. Past Psychological History: Anxiety Smoking Status: Current every day smoker, Vaper Past Alcohol Use History: Abuse, Daily, Heavy Past Drug Use History: None Reported - Past Family History Father Family Medical History: Diabetes Mellitus Mother History Unknown: Yes Additional Family Medical History / Comment(s): Pt does not have contact with his mother. General Exam Limitations: no limitations General appearance: alert, in distress Head exam: Present: atraumatic, normocephalic, normal inspection Respiratory exam: Present: normal lung sounds bilaterally. Absent: respiratory distress, wheezes, rales, rhonchi, stridor Cardiovascular Exam: Present: normal rhythm, tachycardia GI/Abdominal exam: Present: soft, tenderness (Epigastric), normal bowel sounds. Absent: distended Neurological exam: Present: alert, oriented X3, CN II-XII intact Psychiatric exam: Present: normal affect, normal mood Skin exam: Present: warm, dry, intact, normal color. Absent: rash Course Vital Signs 09/03/22 09/03/22 09/03/22 05:52 06:44 08:03 Temperature 99.3 F Pulse Rate 135 H 109 H Pulse Rate [ 120 H Apical] Respiratory 20 20 Rate Blood Pressure 142/95 132/77 O2 Sat by Pulse 97 97 Oximetry 09/03/22 09/03/22 09:15 10:00 Temperature 97.6 F Pulse Rate 107 H Pulse Rate [ Apical] Respiratory 15 Rate Blood Pressure 140/91 138/77 O2 Sat by Pulse 97 Oximetry Medical Decision Making - Medical Decision Making This is a 41-year-old male who presents to the emergency department for abdominal pain, chest pain, and shortness of breath. Was pt. sent in by a medical professional or institution? @ -No Did you speak to anyone other than the patient for history? @ -No Did you review nursing and triage notes? @ -Agree, accurate with regards to the patient's symptoms. Were old charts reviewed? @ -No Differential Diagnosis? @ -Differential Chest Pain: Stable Angina, Unstable Angina, STEMI, NSTEMI Aortic Dissection, Pneumothorax, Musculoskeletal, Esophageal Spasm GERD, Cholecystitis, Pancreatitis, Zoster, this is not meant to be an all-inclusive list. Differential Dyspnea: Coronary syndrome, arrhythmia, tamponade, asthma, COPD, pulmonary embolism, pneumonia, pneumothorax, pulmonary effusion, anaphylaxis, diabetic ketoacidosis, flailed chest, pulmonary contusion, diaphragmatic rupture, anemia, neuromuscular, this is not meant to be an all-inclusive list. Differential Abdominal Pain Men: Appendicitis, cholecystitis, diverticulosis, ischemic bowel, pancreatitis, hepatitis, UTI, gastroenteritis, AAA, incarcerated hernia, bowel obstruction, constipation, inflammatory bowel, hepatitis, peptic ulcer disease, splenic infarction, perforated viscus, testicular torsion, this is not meant to be an all-inclusive list EKG interpreted by me (3pts min.)? @ -Sinus tachycardia. Tall T waves. Ventricular rate 125 beats for minute, MT interval 114 ms, QRS duration 90 ms, QTC 390 ms. X-rays interpreted by me (1pt min.)? @ -Chest x-ray obtained, my interpretation reveals no localized consolidations or infiltrates. What testing was considered but not performed? (CT, X-rays, U/S, labs)? Why? @ -None What meds were considered but not given? Why? @ -None Did you discuss the management of the patient with other professionals? @ -Yes, Dr. Clark, the diamond wheel molder precision inspector, who accepts admission to the ICU. Case was also discussed with the patient's PCP, Dr. Anderson. Did you reconcile home meds? @ -Yes Was smoking cessation discussed for >3mins.? @ -No Was critical care preformed (if so, how long)? @ -Yes, 34 minutes Were there social determinants of health that impacted care today? How? (Homelessness, low income, unemployed, alcoholism, drug addiction, transportation, low edu. Level, literacy, decrease access to med. care, alf, rehab)? @ -Alcoholism Was there de-escalation of care discussed even if they declined? (Discuss DNR or withdrawal of care, Hospice)? @ -No What co-morbidities impacted this encounter? (DM, HTN, Smoking, COPD, CAD, Cancer, CVA, Hep., AIDS, mental health diagnosis, sleep apnea, morbid obesity)? @ -DM, chronic pancreatitis, chronic alcoholism Was patient admitted / discharged? @ - Lab work is consistent with DKA, he has a critically elevated glucose level of 559, potassium of 6.9, CO2 of 7, anion gap of 39, and lactic acid of 6.5. He was started on the DKA protocol. 2 L bolus of IV fluids was administered. Calcium gluconate administered as well for hyperkalemia with associated EKG changes. There is no elevation in pancreatic enzymes to suggest an acute pancreatitis. Ultrasound of the gallbladder obtained. There is a mildly diste nded gallbladder without evidence of an acute cholecystitis. The radiologist notes what might be new pancreatic cysts that were not seen on prior abdominal imaging. Will defer the decision of any additional imaging to the admission team. D-dimer was also mildly elevated, which may be related to the multiple other problems going on. Will also defer the decision of a CTA chest to the admitting team. Patient admitted to ICU. Dr. Clark, precision inspector consulted who accepts ICU admission with DKA protocol. Additionally, there is concern for the patient going into alcohol withdrawals and developing DTs. He was also started on the CIWA protocol. Drug Therapy requiring intensive monitoring for toxicity (Heparin, Nitro, Insulin, Cardizem)? @ -Yes, insulin Were any procedures done? @ -None Diagnosis/symptom? @ -DKA Acute, or Chronic, or Acute on Chronic? @ -Acute Uncomplicated (without systemic symptoms) or Complicated (systemic symptoms)? @ -Complicated Side effects of treatment? @ -None at this time Exacerbation, Progression, or Severe Exacerbation] @ -Not applicable Poses a threat to life or bodily function? @ -Yes Diagnosis/symptom? @ -Alcohol withdrawals Acute, or Chronic, or Acute on Chronic? @ -Acute Uncomplicated (without systemic symptoms) or Complicated (systemic symptoms)? @ -Complicated Side effects of treatment? @ -None at this time Exacerbation, Progression, or Severe Exacerbation] @ -Not applicable Poses a threat to life or bodily function? @ -Yes This case was discussed in detail with the attending ED physician. Presentation, findings, and treatment plan discussed in detail as well. - Lab Data Result diagrams: 09/03/22 06:16 09/03/22 09:35 Lab Results 09/03/22 09/03/22 09/03/22 Range/Units 06:16 06:16 06:16 WBC 15.7 H (3.8-10.6) k/uL RBC 5.22 (4.30-5.90) m/uL Hgb 16.3 (13.0-17.5) gm/dL Hct 50.4 (39.0-53.0) % MCV 96.4 (80.0-100.0) fL MCH 31.1 (25.0-35.0) pg MCHC 32.3 (31.0-37.0) g/dL RDW 13.2 (11.5-15.5) % Plt Count 283 (150-450) k/uL MPV 8.5 Neutrophils % 90 % Lymphocytes % 4 % Monocytes % 4 % Eosinophils % 0 % Basophils % 0 % Neutrophils # 14.2 H (1.3-7.7) k/uL Lymphocytes # 0.7 L (1.0-4.8) k/uL Monocytes # 0.7 (0-1.0) k/uL Eosinophils # 0.0 (0-0.7) k/uL Basophils # 0.1 (0-0.2) k/uL PT 10.0 (9.0-12.0) sec INR 0.9 (<1.2) APTT 22.9 (22.0-30.0) sec D-Dimer 0.97 H (<0.60) mg/L FEU Sodium 138 (137-145) mmol/L Potassium 6.9 H* (3.5-5.1) mmol/L Chloride 92 L (98-107) mmol/L Carbon Dioxide 7 L* (22-30) mmol/L Anion Gap 39 mmol/L BUN 19 (9-20) mg/dL Creatinine 1.22 (0.66-1.25) mg/dL Est GFR (CKD-EPI)AfAm 86 (>60 ml/min/1.73 sqM) Est GFR (CKD-EPI)NonAf 75 (>60 ml/min/1.73 sqM) Glucose 559 H* (74-99) mg/dL POC Glucose (mg/dL) (70-110) mg/dL POC Glu Bow Machine Operator ID Lactic Ac Sepsis Rflx Plasma Lactic Acid Bruno (0.7-2.0) mmol/L Calcium 10.3 H (8.4-10.2) mg/dL Phosphorus (2.5-4.5) mg/dL Magnesium (1.6-2.3) mg/dL Total Bilirubin 2.8 H (0.2-1.3) mg/dL AST 38 (17-59) U/L ALT 44 (4-49) U/L Alkaline Phosphatase 167 H (38-126) U/L Troponin I (0.000-0.034) ng/mL Total Protein 8.9 H (6.3-8.2) g/dL Albumin 5.9 H (3.5-5.0) g/dL Amylase 55 (30-110) U/L Lipase 38 (23-300) U/L Serum Alcohol <10 mg/dL Acetone, Qual Positive (Negative) 09/03/22 09/03/22 09/03/22 Range/Units 06:16 06:16 06:16 WBC (3.8-10.6) k/uL RBC (4.30-5.90) m/uL Hgb (13.0-17.5) gm/dL Hct (39.0-53.0) % MCV (80.0-100.0) fL MCH (25.0-35.0) pg MCHC (31.0-37.0) g/dL RDW (11.5-15.5) % Plt Count (150-450) k/uL MPV Neutrophils % % Lymphocytes % % Monocytes % % Eosinophils % % Basophils % % Neutrophils # (1.3-7.7) k/uL Lymphocytes # (1.0-4.8) k/uL Monocytes # (0-1.0) k/uL Eosinophils # (0-0.7) k/uL Basophils # (0-0.2) k/uL PT (9.0-12.0) sec INR (<1.2) APTT (22.0-30.0) sec D-Dimer (<0.60) mg/L FEU Sodium (137-145) mmol/L Potassium (3.5-5.1) mmol/L Chloride (98-107) mmol/L Carbon Dioxide (22-30) mmol/L Anion Gap mmol/L BUN (9-20) mg/dL Creatinine (0.66-1.25) mg/dL Est GFR (CKD-EPI)AfAm (>60 ml/min/1.73 sqM) Est GFR (CKD-EPI)NonAf (>60 ml/min/1.73 sqM) Glucose (74-99) mg/dL POC Glucose (mg/dL) (70-110) mg/dL POC Glu Bow Machine Operator ID Lactic Ac Sepsis Rflx Plasma Lactic Acid Bruno 6.5 H* (0.7-2.0) mmol/L Calcium (8.4-10.2) mg/dL Phosphorus 9.0 H* (2.5-4.5) mg/dL Magnesium 1.5 L (1.6-2.3) mg/dL Total Bilirubin (0.2-1.3) mg/dL AST (17-59) U/L ALT (4-49) U/L Alkaline Phosphatase (38-126) U/L Troponin I <0.012 (0.000-0.034) ng/mL Total Protein (6.3-8.2) g/dL Albumin (3.5-5.0) g/dL Amylase (30-110) U/L Lipase (23-300) U/L Serum Alcohol mg/dL Acetone, Qual (Negative) 09/03/22 09/03/22 09/03/22 Range/Units 06:55 07:44 08:25 WBC (3.8-10.6) k/uL RBC (4.30-5.90) m/uL Hgb (13.0-17.5) gm/dL Hct (39.0-53.0) % MCV (80.0-100.0) fL MCH (25.0-35.0) pg MCHC (31.0-37.0) g/dL RDW (11.5-15.5) % Plt Count (150-450) k/uL MPV Neutrophils % % Lymphocytes % % Monocytes % % Eosinophils % % Basophils % % Neutrophils # (1.3-7.7) k/uL Lymphocytes # (1.0-4.8) k/uL Monocytes # (0-1.0) k/uL Eosinophils # (0-0.7) k/uL Basophils # (0-0.2) k/uL PT (9.0-12.0) sec INR (<1.2) APTT (22.0-30.0) sec D-Dimer (<0.60) mg/L FEU Sodium (137-145) mmol/L Potassium (3.5-5.1) mmol/L Chloride (98-107) mmol/L Carbon Dioxide (22-30) mmol/L Anion Gap mmol/L BUN (9-20) mg/dL Creatinine (0.66-1.25) mg/dL Est GFR (CKD-EPI)AfAm (>60 ml/min/1.73 sqM) Est GFR (CKD-EPI)NonAf (>60 ml/min/1.73 sqM) Glucose (74-99) mg/dL POC Glucose (mg/dL) 487 H 508 H (70-110) mg/dL POC Glu Bow Machine Operator ID Janel, Georgia Janel, Georgia Lactic Ac Sepsis Rflx Y Plasma Lactic Acid Bruno (0.7-2.0) mmol/L Calcium (8.4-10.2) mg/dL Phosphorus (2.5-4.5) mg/dL Magnesium (1.6-2.3) mg/dL Total Bilirubin (0.2-1.3) mg/dL AST (17-59) U/L ALT (4-49) U/L Alkaline Phosphatase (38-126) U/L Troponin I (0.000-0.034) ng/mL Total Protein (6.3-8.2) g/dL Albumin (3.5-5.0) g/dL Amylase (30-110) U/L Lipase (23-300) U/L Serum Alcohol mg/dL Acetone, Qual (Negative) - Radiology Data Radiology results: report reviewed, image reviewed Disposition Clinical Impression: DKA (diabetic ketoacidosis), Alcohol abuse with withdrawal Disposition: ADMITTED IP TO THIS HOSP
[2022-09-03 06:33] LABS: Basophils # (A) 0.1 k/uL (0-0.2); Basophils % (A) 0 %; Eosinophils % (A) 0 %; HCT 50.4 % (39.0-53.0); HGB 16.3 gm/dL (13.0-17.5); Lymphocytes # (A) 0.7 k/uL (1.0-4.8); Lymphocytes % (A) 4 %; MCH 31.1 pg (25.0-35.0); MCHC 32.3 g/dL (31.0-37.0); MCV 96.4 fL (80.0-100.0); Mean Platelet Volume 8.5; Monocytes # (A) 0.7 k/uL (0-1.0); Monocytes % (A) 4 %; Neutrophils # (A) 14.2 k/uL (1.3-7.7); Neutrophils % (A) 90 %; Platelet Count 283 k/uL (150-450); RBC 5.22 m/uL (4.30-5.90); RDW 13.2 % (11.5-15.5); WBC 15.7 k/uL (3.8-10.6)
[2022-09-03 06:47] LABS: INR 0.9 (<1.2); Partial Thromboplastin Time 22.9 sec (22.0-30.0)
[2022-09-03 06:56] LABS: ALT 44 U/L (4-49); AST 38 U/L (17-59); African American GFR (CKD) 86 (>60 ml/min/1.73 sqM); Albumin 5.9 g/dL (3.5-5.0); Alcohol <10 mg/dL; Alkaline Phosphatase 167 U/L (38-126); Amylase 55 U/L (30-110); Anion Gap 39 mmol/L; Blood Urea Nitrogen 19 mg/dL (9-20); Calcium 10.3 mg/dL (8.4-10.2); Chloride 92 mmol/L (98-107); Lipase 38 U/L (23-300); Non-African American GFR(CKD) 75 (>60 ml/min/1.73 sqM); Sodium 138 mmol/L (137-145); Total Bilirubin 2.8 mg/dL (0.2-1.3); Total Protein 8.9 g/dL (6.3-8.2)
[2022-09-03 07:04] LABS: Glucose 559 mg/dL (74-99)
[2022-09-03 07:05] LABS: Carbon Dioxide 7 mmol/L (22-30); Potassium 6.9 mmol/L (3.5-5.1)
[2022-09-03] MEDS ORDERED: INSULIN REGULAR BOLUS (FROM DRIP BAG) IV ONE (07:06)
--- NOTE | 2022-09-03 07:06 | XR ---
EXAMINATION TYPE: XR chest 2V DATE OF EXAM: 09/03/2022 6:50 AM COMPARISON: Chest radiographs from 09/01/2021 TECHNIQUE: XR chest 2V Frontal and lateral views of the chest. CLINICAL INDICATION:Male, 41 years old with history of Chest pain; FINDINGS: Lungs/Pleura: There is no evidence of pleural effusion, focal consolidation, or pneumothorax. Pulmonary vascularity: Unremarkable. Heart/mediastinum: Cardiomediastinal silhouette is unremarkable. Musculoskeletal: No acute osseous pathology. IMPRESSION: No acute cardiopulmonary disease/process.
[2022-09-03] MEDS ORDERED: CALCIUM GLUCONATE IN NACL 1 GM in SALINE 1 100ML.BAG IVPB ONE (07:09)
[2022-09-03] MEDS ORDERED: SODIUM CHLORIDE 0.9% 1,000 ML IV SCH (07:15)
[2022-09-03] MEDS ORDERED: HYDROmorphone 0.5 MG/0.5 ML SYRINGE IVP STA (07:24)
[2022-09-03 07:33] LABS: Magnesium 1.5 mg/dL (1.6-2.3)
[2022-09-03 07:51] LABS: Glucose,Whole Blood 487 mg/dL (70-110)
--- NOTE | 2022-09-03 08:07 | US ---
EXAMINATION TYPE: US gallbladder DATE OF EXAM: 09/03/2022 COMPARISON: Abdominal ultrasound 04/09/2022, MR abdomen 04/23/2022 CLINICAL HISTORY: Epigastric pain. Hx pancreatic cyst. TECHNIQUE: Multiple sonographic images of the right upper quadrant are obtained. FINDINGS: EXAM MEASUREMENTS: Liver Length: 17.6 cm Gallbladder Wall: 0.1 cm CBD: 0.2 cm Right Kidney: 13.0 x 6.6 x 4.8 cm Pancreas: Pancreatic tail cystic lesion with internal echoes = 4.9 x 3.9 x 5.2 cm. Stable pancreatic body cystic lesion - 0.8 x 1.2 x 0.8 cm. Hypoechoic area seen adjacent to tail cystic lesion, unkno wn origin or etiology, mass vs complex cyst vs non peristalsing loop of bowel = 2.7 x 3.1 x 2.9 cm. Liver: Upper limits of normal in size Gallbladder: Enlarged in size, no stones or wall thickening Evidence for sonographic Arias's sign: neg CBD: wnl Right Kidney: No hydronephrosis or masses seen IMPRESSION: 1. Stable complex cystic lesion within the pancreatic tail measuring up to 5.2 cm which may represent a pancreatic pseudocyst. Additional stable appearing 1.2 cm cystic lesion within the pancreatic body demonstrated and also may represent a pseudocyst. Questionable hypoechoic area seen adjacent to the pancreatic tail cystic lesion which may represent a mass versus complex cyst or nonperistalsing loop of bowel. This can be further evaluated with MR or CT abdomen pancreatic mass protocol. 2. Mildly distended gallbladder without evidence of wall thickening, pericholecystic fluid, shadowing calculi to suggest acute cholecystitis.
[2022-09-03] MEDS: INSULIN REGULAR 100 UNIT in SODIUM CHLORIDE 0.9% 100 ML IV SCH (08:09)
[2022-09-03] MEDS ORDERED: CALCIUM GLUCONATE IN NACL 2 GM in SALINE 1 100ML.BAG IVPB ONE (08:10)
[2022-09-03] MEDS ORDERED: THIAMINE 100 MG/ML 2 ML VIAL IM STA (08:28)
[2022-09-03] MEDS ORDERED: LORazepam 2 MG/ML INJ IV PRN ×2 (08:28)
[2022-09-03] MEDS ORDERED: NALOXONE 0.4 MG/ML 1 ML VIAL IV PRN (08:29)
[2022-09-03 08:31] LABS: Glucose,Whole Blood 508 mg/dL (70-110)
[2022-09-03] MEDS ORDERED: ACETAMINOPHEN TAB 325 MG TAB PO PRN (08:32)
[2022-09-03] MEDS ORDERED: ONDANSETRON 4 MG/2 ML VIAL IVP PRN (08:32)
[2022-09-03 08:50] LABS: Glucose,Whole Blood 390 mg/dL (70-110)
[2022-09-03 09:26] LABS: Glucose,Whole Blood 369 mg/dL (70-110)
[2022-09-03 09:36] LABS: VBG PH 7.2 (7.31-7.41)
[2022-09-03 10:16] LABS: Glucose,Whole Blood 274 mg/dL (70-110)
[2022-09-03 10:17] LABS: African American GFR (CKD) >90 (>60 ml/min/1.73 sqM); Anion Gap 28 mmol/L; Blood Urea Nitrogen 18 mg/dL (9-20); Chloride 104 mmol/L (98-107); Glucose 338 mg/dL (74-99); Non-African American GFR(CKD) >90 (>60 ml/min/1.73 sqM); Potassium 5.2 mmol/L (3.5-5.1); Sodium 139 mmol/L (137-145)
[2022-09-03] MEDS: LORazepam 2 MG/ML INJ IV PRN ×6 (10:17→22:43)
[2022-09-03] MEDS: HYDROmorphone 1 MG/ML 1 ML SYRINGE IVP PRN ×5 (10:18→22:44)
[2022-09-03] MEDS ORDERED: Magnesium Replacement Protocol 1 EACH MISC MISCELLANE PRN (10:27)
[2022-09-03 10:29] LABS: Carbon Dioxide 7 mmol/L (22-30)
[2022-09-03 11:08] LABS: Glucose,Whole Blood 270 mg/dL (70-110)
[2022-09-03] MEDS: MAGNESIUM SULFATE-D5W PMX 1 GM in DEXTROSE/WATER 1 100ML.BAG IVPB SCH ×2 (11:23→13:06)
[2022-09-03 11:29] LABS: Appearance,Urine Clear (Clear); Bilirubin,Urine Negative (Negative); Blood,Urine Trace (Negative); Color,Urine Light Yellow; Glucose,Urine (UA) 4+ (Negative); Leukocyte Esterase,Urine Negative (Negative); Mucus,Urine Rare /hpf; Nitrite,Urine Negative (Negative); PH, Urine 5.5 (5.0-8.0); Protein,Urine 1+ (Negative); RBC,Urine <1 /hpf (0-5); Specific Gravity,Urine 1.022 (1.001-1.035); Squamous Epithelial Cell,Urine <1 /hpf (0-4); Urobilinogen,Urine <2.0 mg/dL (<2.0); WBC,Urine <1 /hpf (0-5)
[2022-09-03 11:33] LABS: Ketones,Urine 4+ (Negative)
[2022-09-03] MEDS: D5-0.45% NACL WITH KCL 20MEQ/L 1,000 ML IV SCH ×2 (11:34→19:59)
[2022-09-03 11:38] LABS: Amphetamine Screen,Urine Not Detected (NotDetected); Barbiturate Screen,Urine Not Detected (NotDetected); Benzodiazepines Screen,Urine Detected (NotDetected); Cocaine Screen,Urine Detected (NotDetected); Methadone Screen, Urine Not Detected (NotDetected); Opiate Screen,Urine Detected (NotDetected); Oxycodone Screen, Urine Not Detected (NotDetected); Phencyclidine Screen,Urine Not Detected (NotDetected); Tricyclic Antidepressant,Urine Not Detected (NotDetected); Urn Cannabinoid Scrn Not Detected (NotDetected)
--- NOTE | 2022-09-03 11:45 | P.CNPUL ---
History of Present Illness Consult date: 09/03/22 Requesting physician: Julien Anderson Reason for consult: other (Acute DKA) Chief complaint: Abdominal pain and intermittent episodes of nausea and vomiting. History of present illness: This is a 41-year-old white male with history of type 1 diabetes, history of alcohol abuse, history of recurrent episodes of pancreatitis. Patient has been drinking heavily in the last 10 days, presented to the ER mostly with intermittent episodes of abdominal pain, nausea and vomiting. No melena no hematemesis, no fever no chills. Patient had approximately half gallon of vodka on a daily basis for the last 10 days. And he had previous history of alcohol withdrawal seizures. Patient was seen in the ER, his diagnostic workup was consistent with acute DKA, acute pancreatitis. Patient was placed on the DKA protocol. I saw the patient in the ER, recommended the CIWA protocol, DKA protocol, admission to the ICU for close monitoring, patient was on insulin drip, and he received significant amount of fluids while in the ER. Electrolytes showed low bicarb, bicarb was 7, his anion gap was 28. Lactic acid 2.3. Initial blood sugar in the ER was as high as 508. Chest x-ray showed no evidence of active disease. Review of Systems Constitutional: Negative HEENT: Negative Pulmonary: Negative GI: As noted in HPI Genitourinary: Negative Musculoskeletal: Negative Endocrine history of diabetes noncompliant with insulin Hematologic: Negative Neurologic: Negative Psychiatric history of alcohol abuse Skin: Negative Past Medical History Past Medical History: Diabetes Mellitus, GERD/Reflux Additional Past Medical History / Comment(s): IDDM pt states he has been told he is type 1 and told he is type II, neuropathy occasionally in bilateral toes/fingers, DKAs, ETOH abuse, past DT's/seizure when withdrawing from alcohol said last sz possibly a year ago, chronic pancreatitis History of Any Multi-Drug Resistant Organisms: None Reported Past Surgical History: No Surgical Hx Reported Additional Past Surgical History / Comment(s): Pt has never had surgery Past Anesthesia/Blood Transfusion Reactions: Unable to Obtain Additional Past Anesthesia/Blood Transfusion Reaction / Comment(s): Pt has never had surgery. Past Psychological History: Anxiety Smoking Status: Current every day smoker, Vaper Past Alcohol Use History: Abuse, Daily, Heavy Past Drug Use History: None Reported - Past Family History Father Family Medical History: Diabetes Mellitus Mother History Unknown: Yes Additional Family Medical History / Comment(s): Pt does not have contact with his mother. Medications and Allergies Home Medications Medication Instructions Recorded Confirmed Type INSULIN LISPRO (HumaLOG) [humaLOG] See Protocol SQ AC-TID 12/30/20 09/03/22 History Insulin Glargine [Lantus Vial] 25 unit SQ DAILY 04/04/22 09/03/22 History Thiamine [Vitamin B-1] 100 mg PO DAILY #30 tab 05/29/22 09/03/22 Rx ALPRAZolam [Xanax] 0.5 mg PO BID PRN 06/24/22 09/03/22 History Pantoprazole [Protonix] 40 mg PO AC-BID #60 tab 06/26/22 09/03/22 Rx Folic Acid 0.4 mg PO DAILY 09/03/22 09/03/22 History traZODone HCL [Desyrel] 50 mg PO HS 09/03/22 09/03/22 History Allergies Allergy/AdvReac Type Severity Reaction Status Date / Time No Known Allergies Allergy Verified 09/03/22 09:13 Physical Exam Vitals: Vital Signs Temp Pulse Pulse Resp BP Pulse Ox 09/03/22 11:00 107 H 19 107/92 96 09/03/22 10:20 97 09/03/22 10:10 98 F 93 15 107/92 96 09/03/22 10:00 97.6 F 107 H 15 138/77 97 09/03/22 09:15 140/91 09/03/22 08:03 109 H 20 132/77 97 09/03/22 06:44 120 H 09/03/22 05:52 99.3 F 135 H 20 142/95 97 Intake and Output 09/02/22 09/03/22 09/03/22 22:59 06:59 14:59 Intake Total 223.883 Output Total 0 Balance 223.883 Intake: IV 200 Sodium Chloride 0.9% 1, 200 000 ml @ 200 mls/hr IV . Q5H [facility] Rx#:[id number] Intake, IV Titration 23.883 Amount Insulin Regular 100 unit 23.883 In Sodium Chloride 0.9% 100 ml @ 0.1 UNITS/KG/HR 7.788 mls/hr IV .[id number] [facility] Rx#:[id number] Output: Urine 0 Other: Weight 77.111 kg 68 kg Physical Exam: Revealed 40-year-old white male in no distress. Head: Atraumatic, normocephalic. HEENT:[Neck is supple.] [No neck masses.] [No thyromegaly.] [No JVD.] Chest: [Clear throughout, no crackles, no rhonchi, no wheezes.] Cardiac Exam: [Normal S1 and S2, no S3 gallop, no murmur.] Abdomen: [Soft, nontender, no megaly, no rebound, no guarding, normal bowel sounds.] Extremities: [No clubbing, no edema, no cyanosis.] Neurological Exam: [No focal neurologic deficit.] Alert and oriented 3 focal deficit Psychiatric: Normal mood affect and normal mental status examination. Skin: No rashes. Results - Laboratory Findings CBC and BMP: 09/03/22 06:16 09/03/22 09:35 PT/INR, D-dimer PT 10.0 sec (9.0-12.0) 09/03/22 06:16 INR 0.9 (<1.2) 09/03/22 06:16 D-Dimer 0.97 mg/L FEU (<0.60) H 09/03/22 06:16 Abnormal lab findings: Abnormal Labs 09/03/22 09/03/22 09/03/22 06:16 06:16 06:16 WBC 15.7 H Neutrophils # 14.2 H Lymphocytes # 0.7 L D-Dimer 0.97 H VBG pH VBG pCO2 VBG HCO3 Potassium 6.9 H* Chloride 92 L Carbon Dioxide 7 L* Glucose 559 H* POC Glucose (mg/dL) Plasma Lactic Acid Bruno Calcium 10.3 H Phosphorus Magnesium Total Bilirubin 2.8 H Alkaline Phosphatase 167 H Total Protein 8.9 H Albumin 5.9 H 09/03/22 09/03/22 09/03/22 06:16 06:16 07:44 WBC Neutrophils # Lymphocytes # D-Dimer VBG pH VBG pCO2 VBG HCO3 Potassium Chloride Carbon Dioxide Glucose POC Glucose (mg/dL) 487 H Plasma Lactic Acid Bruno 6.5 H* Calcium Phosphorus 9.0 H* Magnesium 1.5 L Total Bilirubin Alkaline Phosphatase Total Protein Albumin 09/03/22 09/03/22 09/03/22 08:25 08:48 09:20 WBC Neutrophils # Lymphocytes # D-Dimer VBG pH 7.20 L* VBG pCO2 27 L VBG HCO3 10 L Potassium Chloride Carbon Dioxide Glucose POC Glucose (mg/dL) 508 H 390 H Plasma Lactic Acid Bruno Calcium Phosphorus Magnesium Total Bilirubin Alkaline Phosphatase Total Protein Albumin 09/03/22 09/03/22 09/03/22 09:20 09:35 09:35 WBC Neutrophils # Lymphocytes # D-Dimer VBG pH VBG pCO2 VBG HCO3 Potassium 5.2 H Chloride Carbon Dioxide 7 L* Glucose 338 H POC Glucose (mg/dL) 369 H Plasma Lactic Acid Bruno 2.3 H* Calcium Phosphorus Magnesium Total Bilirubin Alkaline Phosphatase Total Protein Albumin 09/03/22 09/03/22 10:13 11:07 WBC Neutrophils # Lymphocytes # D-Dimer VBG pH VBG pCO2 VBG HCO3 Potassium Chloride Carbon Dioxide Glucose POC Glucose (mg/dL) 274 H 270 H Plasma Lactic Acid Bruno Calcium Phosphorus Magnesium Total Bilirubin Alkaline Phosphatase Total Protein Albumin - Diagnostic Findings Chest x-ray: image reviewed (No evidence of active disease) Assessment and Plan Assessment: Impression Acute diabetic ketoacidosis History of alcohol abuse and previous history of delirium tremens previous history of alcohol withdrawal seizure Anion gap metabolic acidosis secondary to DKA. History of pancreatitis related to alcohol abuse. History of noncompliance with treatment for diabetes. Recommendation: Continue IV fluids Continue DKA protocol Continue CIWA protocol Admit to ICU GI and DVT prophylaxis Continue insulin drip We'll continue to follow Time with Patient: Greater than 30
[2022-09-03 12:01] LABS: Glucose,Whole Blood 210 mg/dL (70-110)
[2022-09-03 13:10] LABS: Glucose,Whole Blood 169 mg/dL (70-110)
[2022-09-03 14:02] LABS: Glucose,Whole Blood 136 mg/dL (70-110)
[2022-09-03 15:00] LABS: African American GFR (CKD) >90 (>60 ml/min/1.73 sqM); Anion Gap 13 mmol/L; Blood Urea Nitrogen 19 mg/dL (9-20); Carbon Dioxide 21 mmol/L (22-30); Chloride 104 mmol/L (98-107); Glucose 144 mg/dL (74-99); Non-African American GFR(CKD) >90 (>60 ml/min/1.73 sqM); Potassium 4.4 mmol/L (3.5-5.1); Sodium 138 mmol/L (137-145)
[2022-09-03 15:15] LABS: Glucose,Whole Blood 136 mg/dL (70-110)
[2022-09-03 16:40] LABS: Glucose,Whole Blood 200 mg/dL (70-110)
[2022-09-03 18:06] LABS: Glucose,Whole Blood 293 mg/dL (70-110)
[2022-09-03 19:03] LABS: Glucose,Whole Blood 332 mg/dL (70-110)
[2022-09-03 20:01] LABS: Glucose,Whole Blood 307 mg/dL (70-110)
--- NOTE | 2022-09-03 21:01 | HP ---
HISTORY AND PHYSICAL HISTORY OF PRESENT ILLNESS: A 41-year-old white male admitted with diabetic ketoacidosis to the ICU. Dr. Clark recommended to go to the ICU for diabetic ketoacidosis. He had a gallbladder ultrasound for possible cholecystitis. 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 He saw a cystic lesion with internal echoes. He has enlarged gallbladder, no stones or wall thickening. Suspect he has a pancreatic pseudocyst with abdominal pain which is stable complex cystic lesion in the pancreatic tail about 5.2 cm. Possibly can do a HIDA scan to see if he has a gallbladder issue as he has recurrent abdominal pain, which could be due to pancreatic pseudocyst secondary to drinking. Admitted to the emergency room, was admitted to ICU with DKA. Dr. Clark has seen the patient in consult, type 1 diabetic, history alcohol abuse, is on CIWA protocol, DKA protocol, gap is 28. Lactic acid 2.3. Sugars in the 508. PAST MEDICAL HISTORY: Diabetes mellitus, GERD. FAMILY HISTORY: See orders. MEDICATIONS: See orders. PHYSICAL EXAMINATION: VITAL SIGNS: Temp 98.6, pulse 107 to 109, respiratory rate 16 to 18, blood pressure 107 to 130s over 80s to 90s. CARDIOVASCULAR: S1, S2. LUNGS: Clear. GI: Soft, nontender. INTEGUMENT: Dry skin turgor, poor mucous membranes. LABORATORY DATA: White count 15.7, sodium 139, potassium 5.2. He appears dry, poor skin turgor the diabetic ketoacidosis, previous alcohol history of delirium tremens, alcohol withdrawal, is on CIWA protocol. Diabetic acidosis due to DKA. History of pancreatitis secondary to alcohol abuse. Pancreatic pseudocyst. Rule out cholecystitis. Prognosis guarded. DKA protocol, CIWA protocol, fluids, pain control please see further orders. MMODL / IJN: [id number] /
[2022-09-03 22:11] LABS: Glucose,Whole Blood 179 mg/dL (70-110)
[2022-09-03 23:01] LABS: Glucose,Whole Blood 158 mg/dL (70-110)
[2022-09-04 00:13] LABS: Glucose,Whole Blood 84 mg/dL (70-110)
[2022-09-04] MEDS: INSULIN REGULAR 100 UNIT in SODIUM CHLORIDE 0.9% 100 ML IV SCH (00:18)
[2022-09-04 01:11] LABS: Glucose,Whole Blood 127 mg/dL (70-110)
[2022-09-04 02:26] LABS: Glucose,Whole Blood 162 mg/dL (70-110)
[2022-09-04 03:00] LABS: Glucose,Whole Blood 170 mg/dL (70-110)
[2022-09-04] MEDS: HYDROmorphone 1 MG/ML 1 ML SYRINGE IVP PRN ×7 (03:23→22:47)
[2022-09-04] MEDS: LORazepam 2 MG/ML INJ IV PRN ×8 (03:30→23:29)
[2022-09-04] MEDS: D5-0.45% NACL WITH KCL 20MEQ/L 1,000 ML IV SCH ×2 (03:36→08:46)
[2022-09-04 04:16] LABS: Glucose,Whole Blood 153 mg/dL (70-110)
[2022-09-04 05:08] LABS: Glucose,Whole Blood 187 mg/dL (70-110)
[2022-09-04 06:16] LABS: Glucose,Whole Blood 167 mg/dL (70-110)
[2022-09-04 06:23] LABS: Basophils % (A) 0 %; Eosinophils # (A) 0.1 k/uL (0-0.7); Eosinophils % (A) 2 %; HCT 37.4 % (39.0-53.0); Lymphocytes # (A) 1.2 k/uL (1.0-4.8); Lymphocytes % (A) 28 %; MCHC 33.3 g/dL (31.0-37.0); Mean Platelet Volume 7.9; Monocytes # (A) 0.3 k/uL (0-1.0); Monocytes % (A) 6 %; Neutrophils # (A) 2.8 k/uL (1.3-7.7); Neutrophils % (A) 62 %; Platelet Count 161 k/uL (150-450); RBC 4.02 m/uL (4.30-5.90); RDW 13.2 % (11.5-15.5); WBC 4.5 k/uL (3.8-10.6)
[2022-09-04 06:28] LABS: African American GFR (CKD) >90 (>60 ml/min/1.73 sqM); Anion Gap 5 mmol/L; Blood Urea Nitrogen 18 mg/dL (9-20); Calcium 8.6 mg/dL (8.4-10.2); Carbon Dioxide 26 mmol/L (22-30); Chloride 103 mmol/L (98-107); Glucose 188 mg/dL (74-99); HGB 12.5 gm/dL (13.0-17.5); Magnesium 1.8 mg/dL (1.6-2.3); Non-African American GFR(CKD) >90 (>60 ml/min/1.73 sqM); Potassium 3.9 mmol/L (3.5-5.1); Sodium 134 mmol/L (137-145)
[2022-09-04 07:20] LABS: Glucose,Whole Blood 145 mg/dL (70-110)
[2022-09-04 08:26] LABS: Glucose,Whole Blood 208 mg/dL (70-110)
[2022-09-04] MEDS ORDERED: DEXTROSE 50% SYRINGE 50 ML IVP PRN ×2 (08:40)
[2022-09-04] MEDS: SODIUM CHLORIDE 0.9% 1,000 ML IV SCH ×3 (08:49→23:30)
[2022-09-04] MEDS: INSULIN ASPART (NovoLOG) 100 UNIT/ML VIAL SQ SCH ×4 (08:50→19:59)
[2022-09-04] MEDS: THIAMINE 100 MG TAB PO SCH (08:50)
[2022-09-04] MEDS: INSULIN DETEMIR (LEVEMIR) 100 UNIT/ML SYR SQ SCH (09:07)
[2022-09-04 12:02] LABS: Glucose,Whole Blood 180 mg/dL (70-110)
[2022-09-04] MEDS: LIPASE 5,000/PROTEASE 17,000/AMYLASE 24,000 PO SCH ×2 (12:37→16:59)
--- NOTE | 2022-09-04 14:08 | P.PN ---
Subjective Progress Note Date: 09/04/22 Principal diagnosis: Acute DKA This is a 41-year-old white male with history of type 1 diabetes, history of alcohol abuse, history of recurrent episodes of pancreatitis. Patient has been drinking heavily in the last 10 days, presented to the ER mostly with intermittent episodes of abdominal pain, nausea and vomiting. No melena no hematemesis, no fever no chills. Patient had approximately half gallon of vodka on a daily basis for the last 10 days. And he had previous history of alcohol withdrawal seizures. Patient was seen in the ER, his diagnostic workup was consistent with acute DKA, acute pancreatitis. Patient was placed on the DKA protocol. I saw the patient in the ER, recommended the [facility] protocol, DKA protocol, admission to the ICU for close monitoring, patient was on insulin drip, and he received significant amount of fluids while in the ER. Electrolyte s showed low bicarb, bicarb was 7, his anion gap was 28. Lactic acid 2.3. Initial blood sugar in the ER was as high as 508. Chest x-ray showed no evidence of active disease. Reevaluated today on 09/04/22, patient is doing well, his anion gap has closed, I plan to switch him to subcu insulin, and restart his ADA diet, start on Levemir insulin, and on NovoLog insulin, Lantus transfer the patient out of the ICU to a regular medical floor. CBC is relatively unremarkable lites are normal renal pr ofile is normal and his anion gap is 5 blood sugar today is 180 Objective - Vital Signs Vital signs: Vital Signs Temp 97.5 F L 09/04/22 11:52 Pulse 81 09/04/22 08:00 Resp 16 09/04/22 11:52 BP 133/92 09/04/22 11:52 Pulse Ox 99 09/04/22 11:52 FiO2 Intake & Output 09/03/22 09/04/22 09/04/22 18:59 06:59 18:59 Intake Total 8619.146 8846.052 756.5 Output Total 600 750 Balance 609.971 1494.052 756.5 Weight 68 kg 71 kg Intake: IV 1450 1800 300 D5-0.45% NaCl with KCl 1050 1800 300 20Meq/l 1,000 ml @ 150 mls/hr IV .[id number] [facility] Rx# :[id number] Magnesium Sulfate-D5w Pmx 200 1 gm In Dextrose/Water 1 100ml.bag @ 100 mls/hr IVPB Q1H [facility] Rx#: [id number] Sodium Chloride 0.9% 1, 200 000 ml @ 200 mls/hr IV . Q5H [facility] Rx#:[id number] Intake, IV Titration 60.343 492.052 216.5 Amount Insulin Regular 100 unit 60.343 12.052 16.5 In Sodium Chloride 0.9% 100 ml @ 0.1 UNITS/KG/HR 7.788 mls/hr IV .[id number] [facility] Rx#:[id number] Sodium Chloride 0.9% 1, 200 000 ml @ 100 mls/hr IV . Q10H [facility] Rx#:[id number] Sodium Chloride 0.9% 1, 480 000 ml @ 999 mls/hr IV . Q1H1M STA Rx#:[id number] Oral 240 Output: Urine 600 750 Other: Voiding Method Urinal Urinal Urinal - Exam Physical Exam: Revealed 41-year-old white male in no distress Head: Atraumatic normocephalic HEENT:[Neck is supple.] [No neck masses.] [No thyromegaly.] [No JVD.] Chest: [Clear throughout, no crackles, no rhonchi, no wheezes.] Cardiac Exam: [Normal S1 and S2, no S3 gallop, no murmur.] Abdomen: [Soft, nontender, no megaly, no rebound, no guarding, normal bowel sounds.] Extremities: [No clubbing, no edema, no cyanosis.] Neurological Exam: [No focal neurologic deficit.] Alert oriented 3 Psychiatric: Normal mood affect and normal status examination. - Labs CBC & Chem 7: 09/04/22 05:34 09/04/22 05:34 Labs: Abnormal Lab Results - Last 24 Hours (Table) 09/03/22 09/03/22 09/03/22 Range/Units 09:35 14:21 15:14 RBC (4.30-5.90) m/uL Hgb (13.0-17.5) gm/dL Hct (39.0-53.0) % Sodium (137-145) mmol/L Carbon Dioxide 21 L (22-30) mmol/L Creatinine (0.66-1.25) mg/dL Glucose 144 H (74-99) mg/dL POC Glucose (mg/dL) 136 H (70-110) mg/dL Hemoglobin A1c 11.7 H (0.0-6.0) % 09/03/22 09/03/22 09/03/22 Range/Units 16:39 18:05 19:01 RBC (4.30-5.90) m/uL Hgb (13.0-17.5) gm/dL Hct (39.0-53.0) % Sodium (137-145) mmol/L Carbon Dioxide (22-30) mmol/L Creatinine (0.66-1.25) mg/dL Glucose (74-99) mg/dL POC Glucose (mg/dL) 200 H 293 H 332 H (70-110) mg/dL Hemoglobin A1c (0.0-6.0) % 09/03/22 09/03/22 09/03/22 Range/Units 19:59 22:10 22:59 RBC (4.30-5.90) m/uL Hgb (13.0-17.5) gm/dL Hct (39.0-53.0) % Sodium (137-145) mmol/L Carbon Dioxide (22-30) mmol/L Creatinine (0.66-1.25) mg/dL Glucose (74-99) mg/dL POC Glucose (mg/dL) 307 H 179 H 158 H (70-110) mg/dL Hemoglobin A1c (0.0-6.0) % 09/04/22 09/04/22 09/04/22 Range/Units 01:09 02:23 02:59 RBC (4.30-5.90) m/uL Hgb (13.0-17.5) gm/dL Hct (39.0-53.0) % Sodium (137-145) mmol/L Carbon Dioxide (22-30) mmol/L Creatinine (0.66-1.25) mg/dL Glucose (74-99) mg/dL POC Glucose (mg/dL) 127 H 162 H 170 H (70-110) mg/dL Hemoglobin A1c (0.0-6.0) % 09/04/22 09/04/22 09/04/22 Range/Units 04:14 05:05 05:34 RBC (4.30-5.90) m/uL Hgb (13.0-17.5) gm/dL Hct (39.0-53.0) % Sodium 134 L (137-145) mmol/L Carbon Dioxide (22-30) mmol/L Creatinine 0.59 L (0.66-1.25) mg/dL Glucose 188 H (74-99) mg/dL POC Glucose (mg/dL) 153 H 187 H (70-110) mg/dL Hemoglobin A1c (0.0-6.0) % 09/04/22 09/04/22 09/04/22 Range/Units 05:34 06:14 07:19 RBC 4.02 L (4.30-5.90) m/uL Hgb 12.5 L D (13.0-17.5) gm/dL Hct 37.4 L (39.0-53.0) % Sodium (137-145) mmol/L Carbon Dioxide (22-30) mmol/L Creatinine (0.66-1.25) mg/dL Glucose (74-99) mg/dL POC Glucose (mg/dL) 167 H 145 H (70-110) mg/dL Hemoglobin A1c (0.0-6.0) % 09/04/22 09/04/22 Range/Units 08:24 12:01 RBC (4.30-5.90) m/uL Hgb (13.0-17.5) gm/dL Hct (39.0-53.0) % Sodium (137-145) mmol/L Carbon Dioxide (22-30) mmol/L Creatinine (0.66-1.25) mg/dL Glucose (74-99) mg/dL POC Glucose (mg/dL) 208 H 180 H (70-110) mg/dL Hemoglobin A1c (0.0-6.0) % Assessment and Plan Assessment: Impression Acute diabetic ketoacidosis, significantly improved over the last 24 hours. History of alcohol abuse and previous history of delirium tremens previous history of alcohol withdrawal seizure Anion gap metabolic acidosis secondary to DKA. History of pancreatitis related to alcohol abuse. History of noncompliance with treatment for diabetes. Recommendation: Continue IV fluids Transfer patient out of the ICU to regular medical floor Discontinue insulin infusion and placed on Levemir insulin as well as on NovoLog insulin, follow the sliding scale. Continue CIWA protocol GI and DVT prophylaxis Will follow as needed. Time with Patient: Less than 30
[2022-09-04 16:42] LABS: Glucose,Whole Blood 174 mg/dL (70-110)
[2022-09-04 19:57] LABS: Glucose,Whole Blood 122 mg/dL (70-110)
[2022-09-05] MEDS: HYDROmorphone 1 MG/ML 1 ML SYRINGE IVP PRN ×6 (02:33→18:43)
[2022-09-05] MEDS: LORazepam 2 MG/ML INJ IV PRN ×4 (03:08→21:11)
[2022-09-05 05:58] LABS: Glucose,Whole Blood 284 mg/dL (70-110)
[2022-09-05] MEDS: INSULIN DETEMIR (LEVEMIR) 100 UNIT/ML SYR SQ SCH (06:07)
[2022-09-05] MEDS: INSULIN ASPART (NovoLOG) 100 UNIT/ML VIAL SQ SCH ×4 (06:08→20:49)
[2022-09-05] MEDS: LIPASE 5,000/PROTEASE 17,000/AMYLASE 24,000 PO SCH ×3 (06:08→16:54)
[2022-09-05] MEDS: THIAMINE 100 MG TAB PO SCH (09:40)
[2022-09-05] MEDS: SODIUM CHLORIDE 0.9% 1,000 ML IV SCH (09:41)
[2022-09-05 11:33] LABS: Glucose,Whole Blood 105 mg/dL (70-110)
[2022-09-05 16:38] LABS: Glucose,Whole Blood 108 mg/dL (70-110)
[2022-09-05 20:47] LABS: Glucose,Whole Blood 167 mg/dL (70-110)
[2022-09-05] MEDS: HYDROmorphone 0.5 MG/0.5 ML SYRINGE IVP PRN (22:16)
[2022-09-06] MEDS: HYDROmorphone 0.5 MG/0.5 ML SYRINGE IVP PRN ×6 (01:11→23:37)
[2022-09-06] MEDS: SODIUM CHLORIDE 0.9% 1,000 ML IV SCH ×3 (02:49→20:45)
--- NOTE | 2022-09-06 03:28 | PN ---
PROGRESS NOTE DATE OF SERVICE: 09/04/2022 HISTORY OF PRESENT ILLNESS: This is a white male. He is 41 with diabetic ketoacidosis, moved out of the ICU abdominal pain which he takes at home due to pancreas insufficiency to see if it helps with abdominal pain. Sugars are in the mid 130s. He is not on DKA protocol, and we will advance his diet as tolerated. PHYSICAL EXAMINATION: CARDIOVASCULAR: S1, S2. LUNGS: Clear. GI: Soft. HEMATOLOGY: Negative Homans. PSYCH: Fair mood and affect. ASSESSMENT AND PLAN: Diabetic ketoacidosis, pancreatic pseudocyst, pancreatic insufficiency, added Creon, possible discharge home tomorrow as he has continued to improve. MMODL / IJN: [id number] /
[2022-09-06 05:39] LABS: Glucose,Whole Blood 235 mg/dL (70-110)
[2022-09-06] MEDS: INSULIN ASPART (NovoLOG) 100 UNIT/ML VIAL SQ SCH ×4 (05:58→20:45)
[2022-09-06] MEDS: LIPASE 5,000/PROTEASE 17,000/AMYLASE 24,000 PO SCH ×2 (05:59→17:07)
[2022-09-06] MEDS: INSULIN DETEMIR (LEVEMIR) 100 UNIT/ML SYR SQ SCH (05:59)
[2022-09-06] MEDS: LORazepam 2 MG/ML INJ IV PRN (06:39)
[2022-09-06] MEDS: THIAMINE 100 MG TAB PO SCH (08:28)
[2022-09-06 12:17] LABS: Glucose,Whole Blood 161 mg/dL (70-110)
[2022-09-06 13:11] LABS: Glucose,Whole Blood 165 mg/dL (70-110)
[2022-09-06 14:12] VITALS: BMI 22.4
--- NOTE | 2022-09-06 15:55 | NM ---
EXAMINATION TYPE: NM hepatobiliary w CCK DATE OF EXAM: 09/06/2022 COMPARISON: Gallbladder ultrasound 09/03/2022 HISTORY: Cholecystitis. TECHNIQUE: After the intravenous administration of 5.1 mCi Tc 99m Mebrofenin hepatobiliary scintigrap hy is performed. Immediate images post injection. FINDINGS: There is satisfactory initial accumulation of tracer by the liver. The gallbladder is visualized wit hin 16 minutes. The small bowel activity is noted within 16 minutes. At one hour CCK was administer ed, patient was injected with 1.4 mcg of Kinevac, and gallbladder ejection fraction is calculated at 90 %, which is elevated. Therefore there is no scintigraphic evidence of cystic or common bile duct obstruction to suggest acute cholecystitis. IMPRESSION: No evidence for cystic duct or common bile duct obstruction to suggest acute cholecystitis. Hyperkinetic gallbladder with ejection fraction of 90%.
[2022-09-06 16:21] LABS: Glucose,Whole Blood 230 mg/dL (70-110)
[2022-09-06] MEDS ORDERED: RX INFO: IV CONTRAST WAS GIVEN 1 EACH MISC MISCELLANE PRN (19:10)
[2022-09-06 20:35] LABS: Glucose,Whole Blood 301 mg/dL (70-110)
[2022-09-06] MEDS: ALPRAZolam 0.5 MG TAB PO PRN (20:50)
[2022-09-06 21:05] LABS: ALT 143 U/L (4-49); AST 136 U/L (17-59); African American GFR (CKD) >90 (>60 ml/min/1.73 sqM); Albumin 4.2 g/dL (3.5-5.0); Albumin/Globulin Ratio 1.9; Alkaline Phosphatase 97 U/L (38-126); Anion Gap 5 mmol/L; Blood Urea Nitrogen 10 mg/dL (9-20); Carbon Dioxide 28 mmol/L (22-30); Chloride 100 mmol/L (98-107); Globulin 2.2 g/dL; Glucose 290 mg/dL (74-99); Non-African American GFR(CKD) >90 (>60 ml/min/1.73 sqM); Potassium 4.3 mmol/L (3.5-5.1); Sodium 133 mmol/L (137-145); Total Bilirubin 2.5 mg/dL (0.2-1.3); Total Protein 6.4 g/dL (6.3-8.2)
--- NOTE | 2022-09-06 22:47 | CT ---
EXAMINATION TYPE: CT angio chest DATE OF EXAM: 09/06/2022 COMPARISON: None HISTORY: Elevated D-dimer. CT DLP: 232.3 mGycm Automated exposure control for dose reduction was used. CONTRAST: Performed with IV Contrast, patient injected with 100cc mL of Isovue 370. There are 3-D post processed images. Images obtained from the thoracic inlet to the diaphragm with th e IV contrast. The lungs are clear of infiltrate. There is minimal pulmonary emphysema. There is no mediastinal ta opathy. There are no hilar masses. There is normal contrast opacification of the pulmonary arteries. No filling defect. No pleural effusion. The thoracic spine is intact. No compression fracture. Sternum is intact. Thoracic aorta is intact. N o aneurysm or dissection. IMPRESSION: Negative exam. No evidence of pulmonary embolism. Mild pulmonary emphysema.
--- NOTE | 2022-09-07 01:52 | PN ---
PROGRESS NOTE SUBJECTIVE: A 41-year-old white male, diabetic ketoacidosis, right upper quadrant pain with hyperkinetic gallbladder, ejection fraction over 90%. Discussed with the surgeon, he will set up for an outpatient after the patient quits drinking. Continue with Creon for pancreatic insufficiency. Ativan will be ordered orally for anxiety. DKA protocol was given while admitted. The patient is stable for possible discharge in the morning. Advance diet as tolerated. OBJECTIVE: CARDIOVASCULAR: S1, S2. LUNGS: Clear. GI: Soft. HEMATOLOGY: Negative for Homans. ASSESSMENT AND PLAN: 1. Diabetic ketoacidosis. 2. Alcohol withdrawal. 3. Cholecystitis. 4. Hyperkinetic gallbladder. Abnormal HIDA scan. Follow up with Dr. Gamble as an outpatient for surgery. Possible discharge home in the morning. MMODL / IJN: [id number] /
[2022-09-07] MEDS: HYDROmorphone 0.5 MG/0.5 ML SYRINGE IVP PRN ×2 (03:05→08:42)
[2022-09-07] MEDS: SODIUM CHLORIDE 0.9% 1,000 ML IV SCH (05:57)
[2022-09-07 08:08] LABS: Glucose,Whole Blood 272 mg/dL (70-110)
[2022-09-07] MEDS: INSULIN ASPART (NovoLOG) 100 UNIT/ML VIAL SQ SCH ×2 (08:42→13:07)
[2022-09-07] MEDS: LIPASE 5,000/PROTEASE 17,000/AMYLASE 24,000 PO SCH ×2 (08:42→13:07)
[2022-09-07] MEDS: INSULIN DETEMIR (LEVEMIR) 100 UNIT/ML SYR SQ SCH (08:42)
[2022-09-07 08:54] LABS: Basophils # (A) 0.03 X 10*3/uL (0.00-0.10); Basophils % (A) 0.5 %; Eosinophils # (A) 0.13 X 10*3/uL (0.04-0.35); Eosinophils % (A) 2.2 %; HCT 39.5 % (39.6-50.0); HGB 13.2 g/dL (13.0-17.0); Immature Grans, Automated 0.2 %; Lymphocytes # (A) 1.08 X 10*3/uL (0.90-5.00); Lymphocytes % (A) 18.4 %; MCH 30.9 pg (27.0-32.0); MCHC 33.4 g/dL (32.0-37.0); MCV 92.5 fL (80.0-97.0); Mean Platelet Volume 11.4 fL (9.5-12.2); Monocytes # (A) 0.51 X 10*3/uL (0.20-1.00); Monocytes % (A) 8.7 %; NRBC Per 100 WBC 0 /100 WBCS (0.0-0.0); Neutrophils # (A) 4.11 X 10*3/uL (1.80-7.70); Platelet Count 148 X 10*3/uL (140-440); RBC 4.27 X 10*6/uL (4.40-5.60); RDW 12.8 % (11.5-14.5); WBC 5.87 X 10*3/uL (4.50-10.00)
[2022-09-07 09:09] LABS: African American GFR (CKD) 146.8 (60.0-200.0); Albumin 4.1 g/dL (3.8-4.9); Albumin/Globulin Ratio 2.41 (1.60-3.17); BUN/Creat Ratio 14.5 Ratio (12.00-20.00); Blood Urea Nitrogen 8.7 mg/dL (9.0-27.0); Calcium 8.8 mg/dL (8.7-10.3); Globulin 1.7 g/dL (1.6-3.3); Non-African American GFR(CKD) 126.7 (60.0-200.0); Potassium 3.7 mmol/L (3.5-5.5); Total Bilirubin 1.7 mg/dL (0.30-1.20); Total Protein 5.8 g/dL (6.2-8.2)
[2022-09-07] MEDS: ALPRAZolam 0.5 MG TAB PO PRN (11:24)
[2022-09-07 11:52] LABS: Glucose,Whole Blood 233 mg/dL (70-110)
[2022-09-07 13:49] VITALS: BP 147/93; PULSE 97; RESP 14; TEMP 98.2
--- NOTE | 2022-09-07 14:36 | P.GSCN ---
History of Present Illness Consult date: 09/07/22 History of present illness: CHIEF COMPLAINT: DKA HISTORY OF PRESENT ILLNESS: This is a 41-year-old male who presented to hospital with complaints of epigastric abdominal pain. He does have a known history of chronic pancreatitis and chronic alcoholism. He drinks about half a gallon of vodka daily. He does have a known history of diabetes and was found to be in DKA. Patient's DKA has improved. Surgical service consulted in regards to his hyperkinetic gallbladder that was found on a HIDA scan. EF of 90%. Patient also has a known history of pancreatic cysts. Patient reports that his pain is better. He is tolerating diet. He reports that his pain feels more likely due to his pancreatic cysts. He denies any nausea vomiting. Afebrile. Medicine service is planning discharge today. PAST MEDICAL HISTORY: See below PAST SURGICAL HISTORY: See below MEDICATIONS: See below ALLERGIES: See below SOCIAL HISTORY: No illicit drug use. REVIEW OF SYSTEMS: CONSTITUTIONAL: Denies fever or chills. HEENT: Denies blurred vision, vision changes, or eye pain. Denies hemoptysis CARDIOVASCULAR: Denies chest pain or pressure. RESPIRATORY: No shortness of breath. GASTROINTESTINAL: See HPI for pertinent findings HEMATOLOGIC: Denies bleeding disorders. GENITOURINARY: Denies any blood in urine or increased urinary frequency. SKIN: Denies pruitis. Denies rash. PHYSICAL EXAM: VITAL SIGNS: Reviewed GENERAL: Well-developed in no acute distress. HEENT: No sclera icterus. Extraocular movements grossly intact. Moist buccal mucosa. Head is atraumatic, normocephalic. No nasal drainage. ABDOMEN: Soft. Nondistended. Epigastric tenderness NEUROLOGIC: Alert and oriented. Cranial nerves II through XII grossly intact. LABORATORY DATA: WBC 15.7 down to 5.87 Hgb 13.2 platelets 148 Sodium is 136 potassium 3.7 creatinine 0.6 Total bili is down from 2.5-1.7 AST is down from 136-121 ALT 143 down to 136 alk phos 97 IMAGING: HIDA scan no evidence of cystic duct or common bile duct obstruction to suggest acute cholecystitis. Hyperkinetic gallbladder with EF of 90% Gallbladder ultrasound stable complex cystic lesion within the pancreatic tail measuring up to 5.2 cm which may represent a pancreatic pseudocyst. Additional stable appearing 1.2 cm cystic lesion within the pancreatic artery demonstrated also may represent pseudocyst. Questionable hypoechoic area seen adjacent to the pancreatic tail cystic lesion which may represent a mass versus complex cyst or non-peristalsing of bowel. This can be further evaluated with MRI or CT abdomen pancreatic mass protocol. Mildly distended gallbladder without evidence of wall thickening, pericholecystic fluid or shadowing H suggest acute cholecystitis ASSESSMENT: 1. Hyperkinetic gallbladder 2. Chronic pancreatitis 3. Pancreatic pseudocysts 4. Daily EtOH use PLAN: -Okay to discharge from surgical standpoint when medically cleared with outpatient follow-up -Recommend alcohol abstinence -Recommend GI follow-up regarding pancreatic pseudocysts Physician Mill Washer note has been reviewed by physician. Signing provider agrees with the documented findings, assessment, and plan of care. Past Medical History Past Medical History: Diabetes Mellitus, GERD/Reflux Additional Past Medical History / Comment(s): IDDM pt states he has been told he is type 1 and told he is type II, neuropathy occasionally in bilateral toes/ fingers, DKAs, ETOH abuse, past DT's/seizure when withdrawing from alcohol said last sz possibly a year ago, chronic pancreatitis History of Any Multi-Drug Resistant Organisms: None Reported Past Surgical History: No Surgical Hx Reported Additional Past Surgical History / Comment(s): Pt has never had surgery Past Anesthesia/Blood Transfusion Reactions: Unable to Obtain Additional Past Anesthesia/Blood Transfusion Reaction / Comm: Pt has never had surgery. Past Psychological History: Anxiety Smoking Status: Current every day smoker, Vaper Past Alcohol Use History: Abuse, Daily, Heavy Past Drug Use History: None Reported - Past Family History Father Family Medical History: Diabetes Mellitus Mother History Unknown: Yes Additional Family Medical History / Comment(s): Pt does not have contact with his mother. Medications and Allergies Home Medications Medication Instructions Recorded Confirmed Type INSULIN LISPRO (HumaLOG) [humaLOG] See Protocol SQ AC-TID 12/30/20 09/03/22 History Insulin Glargine [Lantus Vial] 25 unit SQ DAILY 04/04/22 09/03/22 History Thiamine [Vitamin B-1] 100 mg PO DAILY #30 tab 05/29/22 09/03/22 Rx ALPRAZolam [Xanax] 0.5 mg PO BID PRN 06/24/22 09/03/22 History Pantoprazole [Protonix] 40 mg PO AC-BID #60 tab 06/26/22 09/03/22 Rx Folic Acid 0.4 mg PO DAILY 09/03/22 09/03/22 History traZODone HCL [Desyrel] 50 mg PO HS 09/03/22 09/03/22 History Acetaminophen Tab [Tylenol] 650 mg PO Q6HR PRN tab 09/07/22 Rx Allergies Allergy/AdvReac Type Severity Reaction Status Date / Time No Known Allergies Allergy Verified 09/03/22 09:13 Surgical - Exam Vital Signs Temp Pulse Resp BP Pulse Ox 99.3 F 135 H 20 142/95 97 09/03/22 05:52 09/03/22 05:52 09/03/22 05:52 09/03/22 05:52 09/03/22 05:52 Results - Labs 09/07/22 03:37 09/07/22 03:37 Abnormal Lab Results - Last 24 Hours (Table) 09/06/22 09/06/22 09/06/22 Range/Units 12:16 13:09 16:20 RBC (4.40-5.60) X 10*6/uL Hct (39.6-50.0) % Sodium (137-145) mmol/L BUN (9.0-27.0) mg/dL Creatinine (0.66-1.25) mg/dL Glucose (74-99) mg/dL POC Glucose (mg/dL) 161 H 165 H 230 H (70-110) mg/dL Total Bilirubin (0.2-1.3) mg/dL AST (17-59) U/L ALT (4-49) U/L Total Protein (6.2-8.2) g/dL 09/06/22 09/06/22 09/07/22 Range/Units 20:33 20:40 03:37 RBC 4.27 L (4.40-5.60) X 10*6/uL Hct 39.5 L (39.6-50.0) % Sodium 133 L (137-145) mmol/L BUN (9.0-27.0) mg/dL Creatinine 0.54 L (0.66-1.25) mg/dL Glucose 290 H (74-99) mg/dL POC Glucose (mg/dL) 301 H (70-110) mg/dL Total Bilirubin 2.5 H (0.2-1.3) mg/dL AST 136 H (17-59) U/L ALT 143 H (4-49) U/L Total Protein (6.2-8.2) g/dL 09/07/22 09/07/22 Range/Units 03:37 08:06 RBC (4.40-5.60) X 10*6/uL Hct (39.6-50.0) % Sodium (137-145) mmol/L BUN 8.7 L (9.0-27.0) mg/dL Creatinine (0.66-1.25) mg/dL Glucose 182 H (74-99) mg/dL POC Glucose (mg/dL) 272 H (70-110) mg/dL Total Bilirubin 1.70 H (0.2-1.3) mg/dL AST 121 H (17-59) U/L ALT 136 H (4-49) U/L Total Protein 5.8 L (6.2-8.2) g/dL Diabetes panel 09/06/22 09/07/22 Range/Units 20:40 03:37 Sodium 133 L 136 (137-145) mmol/L Potassium 4.3 3.7 (3.5-5.1) mmol/L Chloride 100 100 (98-107) mmol/L Carbon Dioxide 28 25.0 (22-30) mmol/L BUN 10 8.7 L (9-20) mg/dL Creatinine 0.54 L 0.6 (0.66-1.25) mg/dL Glucose 290 H 182 H (74-99) mg/dL Calcium 9.0 8.8 (8.4-10.2) mg/dL AST 136 H 121 H (17-59) U/L ALT 143 H 136 H (4-49) U/L Alkaline Phosphatase 97 97 (38-126) U/L Total Protein 6.4 5.8 L (6.3-8.2) g/dL Albumin 4.2 4.1 (3.5-5.0) g/dL Calcium panel 09/06/22 09/07/22 Range/Units 20:40 03:37 Calcium 9.0 8.8 (8.4-10.2) mg/dL Albumin 4.2 4.1 (3.5-5.0) g/dL Pituitary panel 09/06/22 09/07/22 Range/Units 20:40 03:37 Sodium 133 L 136 (137-145) mmol/L Potassium 4.3 3.7 (3.5-5.1) mmol/L Chloride 100 100 (98-107) mmol/L Carbon Dioxide 28 25.0 (22-30) mmol/L BUN 10 8.7 L (9-20) mg/dL Creatinine 0.54 L 0.6 (0.66-1.25) mg/dL Glucose 290 H 182 H (74-99) mg/dL Calcium 9.0 8.8 (8.4-10.2) mg/dL Adrenal panel 09/06/22 09/07/22 Range/Units 20:40 03:37 Sodium 133 L 136 (137-145) mmol/L Potassium 4.3 3.7 (3.5-5.1) mmol/L Chloride 100 100 (98-107) mmol/L Carbon Dioxide 28 25.0 (22-30) mmol/L BUN 10 8.7 L (9-20) mg/dL Creatinine 0.54 L 0.6 (0.66-1.25) mg/dL Glucose 290 H 182 H (74-99) mg/dL Calcium 9.0 8.8 (8.4-10.2) mg/dL Total Bilirubin 2.5 H 1.70 H (0.2-1.3) mg/dL AST 136 H 121 H (17-59) U/L ALT 143 H 136 H (4-49) U/L Alkaline Phosphatase 97 97 (38-126) U/L Total Protein 6.4 5.8 L (6.3-8.2) g/dL Albumin 4.2 4.1 (3.5-5.0) g/dL
== END 2022-09-07 14:15 | disposition home or self-care (01) | DRG 637 ==
LOC: EC 05:49 → 2SICU 08:48 → 3SCARD 09-04 11:48 → 6NMEDSUR 09-05 18:15
PROVIDERS: ADMIT Family Medicine; ATTEND Family Medicine
DX: E11.10 Type 2 diabetes mellitus with ketoacidosis without coma (principal); K85.90 Acute pancreatitis without necrosis or infection, unspecified; F10.239 Alcohol dependence with withdrawal, unspecified; K86.1 Other chronic pancreatitis; K86.2 Cyst of pancreas; K86.3 Pseudocyst of pancreas; Z79.4 Long term (current) use of insulin; E11.40 Type 2 diabetes mellitus with diabetic neuropathy, unspecified; E87.5 Hyperkalemia; F17.290 Nicotine dependence, other tobacco product, uncomplicated; F41.9 Anxiety disorder, unspecified; K21.9 Gastro-esophageal reflux disease without esophagitis; K70.30 Alcoholic cirrhosis of liver without ascites; K81.9 Cholecystitis, unspecified; K82.8 Other specified diseases of gallbladder; Z83.3 Family history of diabetes mellitus; T38.3X6A Underdosing of insulin and oral hypoglycemic [antidiabetic] drugs, initial encounter; Z91.128 Patient's intentional underdosing of medication regimen for other reason; Z28.310 Unvaccinated for COVID-19; Z71.3 Dietary counseling and surveillance; Z79.899 Other long term (current) drug therapy
CPT/HCPCS: 36415; 71046; 71275; 76705; 78227; 80048; 80051; 80053; 80306; 80320; 81001; 82009; 82150; 82565; 82803; 82947; 83036; 83605; 83690; 83735; 84100; 84484; 84520; 85025; 85379; 85610; 85730; 93005; 96361; 96374; 96375; 99291

== ENCOUNTER 2022-10-28 20:23 | Inpatient (IN) | payer OTHER ==
[2022-10-28 20:35] LABS: Glucose,Whole Blood 342 mg/dL (70-110)
[2022-10-28 20:47] LABS: Glucose,Whole Blood 316 mg/dL (70-110)
[2022-10-28] MEDS ORDERED: ONDANSETRON 4 MG/2 ML VIAL IVP STA (21:05)
[2022-10-28] MEDS ORDERED: SODIUM CHLORIDE 0.9% 1,000 ML IV STA (21:05)
[2022-10-28 21:10] LABS: Basophils # (A) 0.1 k/uL (0-0.2); Basophils % (A) 1 %; Eosinophils % (A) 0 %; HCT 51.6 % (39.0-53.0); Lymphocytes % (A) 7 %; MCH 32.1 pg (25.0-35.0); MCHC 32.9 g/dL (31.0-37.0); MCV 97.6 fL (80.0-100.0); Monocytes # (A) 0.6 k/uL (0-1.0); Monocytes % (A) 4 %; Neutrophils # (A) 12.3 k/uL (1.3-7.7); Neutrophils % (A) 87 %; Platelet Count 254 k/uL (150-450); RBC 5.28 m/uL (4.30-5.90); RDW 13.8 % (11.5-15.5); WBC 14.1 k/uL (3.8-10.6)
[2022-10-28 21:18] LABS: HGB 16.9 gm/dL (13.0-17.5)
[2022-10-28] MEDS ORDERED: PANTOPRAZOLE 40 MG/10 ML VIAL IVP STA (21:19)
--- NOTE | 2022-10-28 21:21 | ED ---
General Adult HPI - General Chief complaint: Arrhythmia/Palpitations Stated complaint: diabetic complications Time Seen by Provider: 10/28/22 20:36 Source: patient Mode of arrival: ambulatory Limitations: no limitations - History of Present Illness Initial comments: Dictation was produced using [employer] dictation software. please excuse any grammatical, word or spelling errors. Chief Complaint: 42-year-old male presents to emergency department for alcohol withdrawals and suspected DKA History of Present Illness: 42-year-old alcoholic. He is also insulin-dependent diabetic. Patient states he's been drinking significantly for the last several years. Today's symptoms were significantly worse. He has history of chronic pancreatitis but he does have epigastric abdominal pain. Complaining of nausea vomiting. Denies any diarrhea. No fevers. Patient's last alcohol intake was earlier today. Patient continues to drink alcohol. The ROS documented in this emergency department record has been reviewed and confirmed by me. Those systems with pertinent positive or negative responses have been documented in the HPI. All other systems are other negative and/or noncontributory. PHYSICAL EXAM: General Impression: Alert and oriented x3, vomiting HEENT: Normocephalic atraumatic, extra-ocular movements intact, pupils equal and reactive to light bilaterally, dry mucous membranes Cardiovascular: Heart regular rate and rhythm Chest: Able to complete full sentences, no retractions, no tachypnea Abdomen: abdomen soft, non-tender, non-distended, no organomegaly Musculoskeletal: Pulses present and equal in all extremities, no peripheral edema Motor: no focal deficits noted Neurological: CN II-XII grossly intact, no focal motor or sensory deficits noted Skin: Intact with no visualized rashes Psych: Normal affect and mood ED course: 42-year-old male presents emergency department for suspected DKA, pancreatitis and alcohol withdrawal. He was performed. Patient has been admitted to the hospital on multiple occasions for the same issues. Primary pulmonary consultation and discharge summary notes reviewed. Vital signs upon arrival shows heart rate 140, so vital signs within acceptable limits. Nursing notes and chart review was performed My EKG interpretation: Ventricular rate 129, sinus tachycardia,. Interval 23, QRS 92, QTc 381. No HI prolongation, no QTC prolongation, no ST or T-wave changes noted. EKG compared to 2022 showing no changes. Overall, this EKG is unremarkable Was pt. sent in by a medical professional or institution (FLAVIO Strickland, CASINO SUPERVISOR, urgent care, hospital, or assisted...) When possible be specific @ -No Did you speak to anyone other than the patient for history (EMS, parent, family, police, friend...)? What history was obtained from this source @ -No Did you review nursing and triage notes (agree or disagree)? Why? @ -I reviewed and agree with nursing and triage notes Were old charts reviewed (outside hosp., previous admission, EMS record, old EKG, old radiological studies, urgent care reports/EKG's, assisted records)? Report findings @ -Prior discharge summaries and pulmonology H&P was reviewed from prior admi ssions Differential Diagnosis (chest pain, altered mental status, abdominal pain women, abdominal pain men, vaginal bleeding, musculoskeletal, weakness, fever, dyspnea, syncope, headache, dizziness, GI bleed, back pain, seizure, CVA, palpatations, mental health)? @ -not applicable EKG interpreted by me (3pts min.). @ -See above X-rays interpreted by me (1pt min.). @ -None done CT interpreted by me (1pt min.). @ -None done U/S interpreted by me (1pt. min.). @ -None done What testing was considered but not performed or refused? (CT, X-rays, U/S, labs)? Why? @ -See above What meds were considered but not given or refused? Why? @ -See above Did you discuss the management of the patient with other professionals (professionals i.e. FLAVIO Strickland, CASINO SUPERVISOR, lab, RT, psych nurse, health and social care teacher, sales director, teacher, chief legal officer, case operator)? Give summary @ -Case discussed with Dr. Anderson for admission. Case discussed with Dr. Vernon for admission to the ICU Was smoking cessation discussed for >3mins.? @ -No Was critical care preformed (if so, how long)? @ -Yes, 33 minutes Were there social determinants of health that impacted care today? How? (Homelessness, low income, unemployed, alcoholism, drug addiction, transportation, low edu. Level, literacy, decrease access to med. care, snf, rehab)? @ -Alcoholism Was there de-escalation of care discussed even if they declined (Discuss DNR or withdrawal of care, Hospice)? DNR status @ -No What co-morbidities impacted this encounter? (DM, HTN, Smoking, COPD, CAD, Cancer, CVA, ARF, Chemo, Hep., AIDS, mental health diagnosis, sleep apnea, morbid obesity)? @ -None Was patient admitted / discharged? Hospital course, mention meds given and route, prescriptions, significant lab abnormalities, going to OR and other pertinent info. @ -6-year-old male well-known to the emergency department for multiple admissions for DKA and alcohol intoxication. Presents emergency Department with acute distress. Patient has severe metabolic derangement with bicarb less than 5. Anion gap is unable to be measured. Lactic acidosis 9.3. Acetone positive. Clinical presentation consistent with DKA. 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 Patient be admitted to intensive care unit for further care. Patient started on DKA protocol. Undiagnosed new problem with uncertain prognosis? @ -No Drug Therapy requiring intensive monitoring for toxicity (Heparin, Nitro, Insulin, Cardizem)? @ -No Were any procedures done? @ -No Diagnosis/symptom? Acute, or Chronic, or Acute on Chronic? Uncomplicated (without systemic symptoms) or Complicated (systemic symptoms)? @ -1. Acute DKA, 2. Acute EtOH withdrawal Side effects of treatment? @ -No Exacerbation, Progression, or Severe Exacerbation? @ -Severe exacerbation Poses a threat to life or bodily function? How? (Chest pain, [place], [place], pneumonia, PE, COPD, DKA, ARF, appy, cholecystitis, CVA, Diverticulitis, Homicidal, Suicidal, threat to staff... and all critical care pts) @ -yes - Related Data Home Medications Medication Instructions Recorded Confirmed INSULIN LISPRO (HumaLOG) [humaLOG] See Protocol SQ AC-TID 12/30/20 09/03/22 Insulin Glargine [Lantus Vial] 25 unit SQ DAILY 04/04/22 09/03/22 ALPRAZolam [Xanax] 0.5 mg PO BID PRN 06/24/22 09/03/22 Folic Acid 0.4 mg PO DAILY 09/03/22 09/03/22 traZODone HCL [Desyrel] 50 mg PO HS 09/03/22 09/03/22 Previous Rx's Medication Instructions Recorded Thiamine [Vitamin B-1] 100 mg PO DAILY #30 tab 05/29/22 Pantoprazole [Protonix] 40 mg PO AC-BID #60 tab 06/26/22 Acetaminophen Tab [Tylenol] 650 mg PO Q6HR PRN tab 09/07/22 Allergies Allergy/AdvReac Type Severity Reaction Status Date / Time No Known Allergies Allergy Verified 09/03/22 09:13 Review of Systems ROS Statement: Those systems with pertinent positive or pertinent negative responses have been documented in the HPI. ROS Other: All systems not noted in ROS Statement are negative. Past Medical History Past Medical History: Diabetes Mellitus, GERD/Reflux Additional Past Medical History / Comment(s): IDDM pt states he has been told he is type 1 and told he is type II, neuropathy occasionally in bilateral toes/fingers, DKAs, ETOH abuse, past DT's/seizure when withdrawing from alcohol said last sz possibly a year ago, chronic pancreatitis History of Any Multi-Drug Resistant Organisms: None Reported Past Surgical History: No Surgical Hx Reported Additional Past Surgical History / Comment(s): Pt has never had surgery Past Anesthesia/Blood Transfusion Reactions: Unable to Obtain Additional Past Anesthesia/Blood Transfusion Reaction / Comment(s): Pt has never had surgery. Past Psychological History: Anxiety Smoking Status: Current every day smoker, Vaper Past Alcohol Use History: Abuse, Daily, Heavy Past Drug Use History: None Reported - Past Family History Father Family Medical History: Diabetes Mellitus Mother History Unknown: Yes Additional Family Medical History / Comment(s): Pt does not have contact with his mother. General Exam Limitations: no limitations Course Vital Signs 10/28/22 10/28/22 20:32 21:31 Temperature 98.2 F Pulse Rate 140 H Pulse Rate [ 112 H Apical] Respiratory 20 Rate Blood Pressure 155/82 O2 Sat by Pulse 96 Oximetry Medical Decision Making - Lab Data Result diagrams: 10/28/22 20:47 10/28/22 21:19 Lab Results 10/28/22 10/28/22 10/28/22 Range/Units 20:31 20:46 20:47 WBC 14.1 H (3.8-10.6) k/uL RBC 5.28 (4.30-5.90) m/uL Hgb 16.9 D (13.0-17.5) gm/dL Hct 51.6 (39.0-53.0) % MCV 97.6 (80.0-100.0) fL MCH 32.1 (25.0-35.0) pg MCHC 32.9 (31.0-37.0) g/dL RDW 13.8 (11.5-15.5) % Plt Count 254 (150-450) k/uL MPV 9.0 Neutrophils % 87 % Lymphocytes % 7 % Monocytes % 4 % Eosinophils % 0 % Basophils % 1 % Neutrophils # 12.3 H (1.3-7.7) k/uL Lymphocytes # 1.0 (1.0-4.8) k/uL Monocytes # 0.6 (0-1.0) k/uL Eosinophils # 0.0 (0-0.7) k/uL Basophils # 0.1 (0-0.2) k/uL PT (9.0-12.0) sec INR (<1.2) APTT (22.0-30.0) sec Sodium (137-145) mmol/L Potassium (3.5-5.1) mmol/L Chloride (98-107) mmol/L Carbon Dioxide (22-30) mmol/L Anion Gap mmol/L BUN (9-20) mg/dL Creatinine (0.66-1.25) mg/dL Est GFR (CKD-EPI)AfAm (>60 ml/min/1.73 sqM) Est GFR (CKD-EPI)NonAf (>60 ml/min/1.73 sqM) Glucose (74-99) mg/dL POC Glucose (mg/dL) 342 H 316 H (70-110) mg/dL POC Glu Developmental Therapist Lobo Roman Kyle Plasma Lactic Acid Bruno (0.7-2.0) mmol/L Calcium (8.4-10.2) mg/dL Magnesium (1.6-2.3) mg/dL Total Bilirubin (0.2-1.3) mg/dL AST (17-59) U/L ALT (4-49) U/L Alkaline Phosphatase (38-126) U/L Total Protein (6.3-8.2) g/dL Albumin (3.5-5.0) g/dL Lipase (23-300) U/L Serum Alcohol mg/dL Acetone, Qual (Negative) 10/28/22 10/28/22 10/28/22 Range/Units 20:47 21:19 21:19 WBC (3.8-10.6) k/uL RBC (4.30-5.90) m/uL Hgb (13.0-17.5) gm/dL Hct (39.0-53.0) % MCV (80.0-100.0) fL MCH (25.0-35.0) pg MCHC (31.0-37.0) g/dL RDW (11.5-15.5) % Plt Count (150-450) k/uL MPV Neutrophils % % Lymphocytes % % Monocytes % % Eosinophils % % Basophils % % Neutrophils # (1.3-7.7) k/uL Lymphocytes # (1.0-4.8) k/uL Monocytes # (0-1.0) k/uL Eosinophils # (0-0.7) k/uL Basophils # (0-0.2) k/uL PT 9.7 (9.0-12.0) sec INR 0.9 (<1.2) APTT 23.1 (22.0-30.0) sec Sodium 140 (137-145) mmol/L Potassium 5.3 H (3.5-5.1) mmol/L Chloride 99 (98-107) mmol/L Carbon Dioxide <5 L* (22-30) mmol/L Anion Gap mmol/L BUN 11 (9-20) mg/dL Creatinine 0.94 (0.66-1.25) mg/dL Est GFR (CKD-EPI)AfAm >90 (>60 ml/min/1.73 sqM) Est GFR (CKD-EPI)NonAf >90 (>60 ml/min/1.73 sqM) Glucose 338 H (74-99) mg/dL POC Glucose (mg/dL) (70-110) mg/dL POC Glu Developmental Therapist ID Plasma Lactic Acid Bruno 9.3 H* (0.7-2.0) mmol/L Calcium 9.5 (8.4-10.2) mg/dL Magnesium 1.7 (1.6-2.3) mg/dL Total Bilirubin 2.0 H (0.2-1.3) mg/dL AST 46 (17-59) U/L ALT 51 H (4-49) U/L Alkaline Phosphatase 127 H (38-126) U/L Total Protein 8.5 H (6.3-8.2) g/dL Albumin 5.8 H (3.5-5.0) g/dL Lipase 49 (23-300) U/L Serum Alcohol 90 mg/dL Acetone, Qual Positive (Negative) Disposition Clinical Impression: DKA (diabetic ketoacidosis), Alcohol withdrawal Disposition: ADMITTED IP TO THIS [facility] Condition: Critical Referrals: Julien Anderson MD [Primary Care Provider] - 1-2 days Time of Disposition: 22:28
[2022-10-28 21:26] LABS: ALT 51 U/L (4-49); AST 46 U/L (17-59); African American GFR (CKD) >90 (>60 ml/min/1.73 sqM); Albumin 5.8 g/dL (3.5-5.0); Alkaline Phosphatase 127 U/L (38-126); Blood Urea Nitrogen 11 mg/dL (9-20); Calcium 9.5 mg/dL (8.4-10.2); Carbon Dioxide <5 mmol/L (22-30); Chloride 99 mmol/L (98-107); Glucose 338 mg/dL (74-99); Magnesium 1.7 mg/dL (1.6-2.3); Non-African American GFR(CKD) >90 (>60 ml/min/1.73 sqM); Potassium 5.3 mmol/L (3.5-5.1); Sodium 140 mmol/L (137-145); Total Protein 8.5 g/dL (6.3-8.2)
[2022-10-28 21:28] LABS: Alcohol 90 mg/dL
[2022-10-28] MEDS ORDERED: Magnesium Replacement Protocol 1 EACH MISC MISCELLANE PRN (21:31)
[2022-10-28] MEDS ORDERED: INSULIN REGULAR BOLUS (FROM DRIP BAG) IV ONE (21:31)
[2022-10-28] MEDS ORDERED: Potassium Replacement Protocol 1 EACH MISC MISCELLANE PRN (21:31)
[2022-10-28] MEDS ORDERED: LORazepam 2 MG/ML INJ IV PRN (21:32)
[2022-10-28] MEDS ORDERED: LORazepam 2 MG/ML INJ IV STA (21:32)
[2022-10-28] MEDS ORDERED: THIAMINE 100 MG/ML 2 ML VIAL IM STA (21:32)
[2022-10-28 21:33] LABS: INR 0.9 (<1.2); Partial Thromboplastin Time 23.1 sec (22.0-30.0); Prothrombin Time 9.7 sec (9.0-12.0)
[2022-10-28 21:58] LABS: Lipase 49 U/L (23-300)
[2022-10-28] MEDS: SODIUM CHLORIDE 0.9% 1,000 ML IV SCH (22:09)
[2022-10-28] MEDS ORDERED: NALOXONE 0.4 MG/ML 1 ML VIAL IV PRN (22:12)
[2022-10-28] MEDS: LORazepam 2 MG/ML INJ IV PRN (22:32)
[2022-10-28 22:44] LABS: Glucose,Whole Blood 284 mg/dL (70-110)
[2022-10-28 23:17] LABS: Glucose,Whole Blood 275 mg/dL (70-110)
[2022-10-28] MEDS ORDERED: ONDANSETRON 4 MG/2 ML VIAL IVP PRN (23:32)
[2022-10-28] MEDS: D5-0.45% NACL WITH KCL 20MEQ/L 1,000 ML IV SCH (23:40)
[2022-10-28] MEDS: INSULIN REGULAR 100 UNIT in SODIUM CHLORIDE 0.9% 100 ML IV SCH (23:59)
[2022-10-29] MEDS: HYDROmorphone 0.5 MG/0.5 ML SYRINGE IVP PRN ×4 (00:03→17:43)
[2022-10-29 00:27] LABS: African American GFR (CKD) >90 (>60 ml/min/1.73 sqM); Anion Gap 28 mmol/L; Blood Urea Nitrogen 10 mg/dL (9-20); Chloride 101 mmol/L (98-107); Glucose 317 mg/dL (74-99); Non-African American GFR(CKD) >90 (>60 ml/min/1.73 sqM); Sodium 138 mmol/L (137-145)
[2022-10-29 00:29] LABS: Glucose,Whole Blood 279 mg/dL (70-110)
[2022-10-29 00:33] LABS: Carbon Dioxide 9 mmol/L (22-30); Potassium 6.7 mmol/L (3.5-5.1)
[2022-10-29] MEDS: INSULIN REGULAR 100 UNIT in SODIUM CHLORIDE 0.9% 100 ML IV SCH ×2 (00:49→06:18)
[2022-10-29] MEDS ORDERED: SODIUM BICARB 8.4% 50 ML SYR (1 MEQ/ML) IV STA ×2 (00:50→00:57)
[2022-10-29] MEDS: SODIUM CHLORIDE 0.9% 1,000 ML IV SCH ×2 (00:55→05:19)
[2022-10-29] MEDS: LORazepam 2 MG/ML INJ IV PRN ×7 (01:11→21:11)
[2022-10-29 02:00] LABS: Glucose,Whole Blood 243 mg/dL (70-110)
[2022-10-29 02:52] LABS: Glucose,Whole Blood 218 mg/dL (70-110)
[2022-10-29 04:08] LABS: Glucose,Whole Blood 187 mg/dL (70-110)
[2022-10-29 04:14] LABS: African American GFR (CKD) >90 (>60 ml/min/1.73 sqM); Anion Gap 14 mmol/L; Blood Urea Nitrogen 13 mg/dL (9-20); Carbon Dioxide 24 mmol/L (22-30); Chloride 100 mmol/L (98-107); Glucose 208 mg/dL (74-99); Non-African American GFR(CKD) >90 (>60 ml/min/1.73 sqM); Potassium 4.3 mmol/L (3.5-5.1); Sodium 138 mmol/L (137-145)
[2022-10-29 05:03] LABS: Glucose,Whole Blood 165 mg/dL (70-110)
[2022-10-29] MEDS: D5-0.45% NACL WITH KCL 20MEQ/L 1,000 ML IV SCH ×2 (05:43→11:03)
[2022-10-29 05:58] LABS: Glucose,Whole Blood 105 mg/dL (70-110)
[2022-10-29 06:49] LABS: Glucose,Whole Blood 79 mg/dL (70-110)
[2022-10-29 07:21] LABS: Basophils # (A) 0.1 k/uL (0-0.2); Basophils % (A) 1 %; Eosinophils # (A) 0.1 k/uL (0-0.7); Eosinophils % (A) 1 %; HCT 40.4 % (39.0-53.0); Lymphocytes # (A) 1.7 k/uL (1.0-4.8); Lymphocytes % (A) 24 %; MCH 31.9 pg (25.0-35.0); MCHC 34.1 g/dL (31.0-37.0); MCV 93.5 fL (80.0-100.0); Mean Platelet Volume 8.8; Monocytes # (A) 0.6 k/uL (0-1.0); Monocytes % (A) 9 %; Neutrophils # (A) 4.4 k/uL (1.3-7.7); Neutrophils % (A) 63 %; Platelet Count 185 k/uL (150-450); RBC 4.32 m/uL (4.30-5.90); RDW 13.4 % (11.5-15.5)
[2022-10-29 07:28] LABS: African American GFR (CKD) >90 (>60 ml/min/1.73 sqM); Anion Gap 7 mmol/L; Blood Urea Nitrogen 14 mg/dL (9-20); Calcium 8.5 mg/dL (8.4-10.2); Carbon Dioxide 30 mmol/L (22-30); Chloride 102 mmol/L (98-107); Glucose 82 mg/dL (74-99); Non-African American GFR(CKD) >90 (>60 ml/min/1.73 sqM); Sodium 139 mmol/L (137-145)
[2022-10-29 07:33] LABS: HGB 13.8 gm/dL (13.0-17.5)
[2022-10-29] MEDS: THIAMINE 100 MG TAB PO SCH (07:59)
[2022-10-29 08:02] LABS: Glucose,Whole Blood 125 mg/dL (70-110)
--- NOTE | 2022-10-29 09:56 | P.CNPUL ---
History of Present Illness Consult date: 10/29/22 Chief complaint: DKA, acute alcohol intoxication History of present illness: 42-year-old male patient, type I diabetic and alcoholic with previous history of pancreatitis. The patient came into the emergency with acute DKA. The patient was severely acidotic and serum bicarb initially was less than 5. The patient also was in an anion gap metabolic acidosis and he was also positive for alcohol and he had acute alcohol intoxication. Initial blood work showed a serum bicarb less than 5, the anion gap was quite elevated. The patient had a potassium level of 5.3. Sugar was at 338. The caused was 14.1 with hemoglobin 16.9. LFTs were showing an AST of 46, ALP of 51, alkaline phosphatase of 127 and total bilirubin of 2.0. Alcohol level was 90. Serum acetone was positive. Based on that, the patient was hospitalized and he was started on DKA protocol. He received IV fluids a total of 2 L in the emergency. No insulin was given in the emergency. After arriving to the ICU, the patient was started on insulin drip per protocol. There has been gradual improvement in his anion gap and his gap is essentially closed and was down to 7. Serum bicarb is at 30. Sodium level is at 139 with a potassium level of 4.0. Motor the highest potassium level was at 6.7. The patient is awake and alert. He is on room air oxygen. Denies hav ing any nausea or vomiting. No signs of any disease amphetamines for now. His lipase level is at 49. He has chronic abdominal pain related to previous episodes of pancreatitis. His last admission for acute DKA was on 09/03/2022. The patient is supposed to be on Lantus insulin 30 units daily along with that is supposed to be on a sliding scale coverage. He drinks alcohol in the order of half a gallon of vodka on a daily basis. Review of Systems Constitutional: Negative HEENT: Negative Pulmonary: Negative GI: As noted in HPI Genitourinary: Negative Musculoskeletal: Negative Endocrine history of diabetes noncompliant with insulin Hematologic: Negative Neurologic: Negative Psychiatric history of alcohol abuse Skin: Negative Past Medical History Past Medical History: Diabetes Mellitus, GERD/Reflux Additional Past Medical History / Comment(s): IDDM pt states he has been told he is type 1 and told he is type II, neuropathy occasionally in bilateral toes/fingers, DKAs, ETOH abuse, past DT's/seizure when withdrawing from alcohol said last sz possibly a year ago, chronic pancreatitis History of Any Multi-Drug Resistant Organisms: None Reported Past Surgical History: No Surgical Hx Reported Additional Past Surgical History / Comment(s): Pt has never had surgery Past Anesthesia/Blood Transfusion Reactions: Unable to Obtain Additional Past Anesthesia/Blood Transfusion Reaction / Comment(s): Pt has never had surgery. Past Psychological History: Anxiety Additional Psychological History / Comment(s): Pt resides with his girlfriend, live next door to father. He has a glucometer. Pt stated he stopped taking anti- anxiety medication (xanax) approx 2 months ago Smoking Status: Current some day smoker, Vaper Past Alcohol Use History: Abuse, Daily, Heavy Additional Past Alcohol Use History / Comment(s): Pt started smoking approx. 14y.o. and smokes approximately 1-2 cigarettes a day. Pt states he drank vodka 1/2 gal/day. Past Drug Use History: None Reported - Past Family History Father Family Medical History: Diabetes Mellitus Mother History Unknown: Yes Additional Family Medical History / Comment(s): Pt does not have contact with his mother. Pt states mom has schizophrenia Medications and Allergies Home Medications Medication Instructions Recorded Confirmed Type INSULIN LISPRO (HumaLOG) [humaLOG] See Protocol SQ AC-TID 12/30/20 10/28/22 His tory Insulin Glargine [Lantus Vial] 25 unit SQ DAILY 04/04/22 10/28/22 History Thiamine [Vitamin B-1] 100 mg PO DAILY #30 tab 05/29/22 10/28/22 Rx Pantoprazole [Protonix] 40 mg PO AC-BID #60 tab 06/26/22 10/28/22 Rx Folic Acid 0.4 mg PO DAILY 09/03/22 10/28/22 History traZODone HCL [Desyrel] 50 mg PO HS 09/03/22 10/28/22 History Acetaminophen Tab [Tylenol] 650 mg PO Q6HR PRN tab 09/07/22 10/28/22 Rx Allergies Allergy/AdvReac Type Severity Reaction Status Date / Time No Known Allergies Allergy Verified 10/28/22 22:39 Physical Exam Vitals: Vital Signs Temp Pulse Pulse Resp BP BP Pulse Ox 10/29/22 08:00 98.4 F 113 H 11 L 114/72 95 10/29/22 07:00 103 H 16 119/80 92 L 10/29/22 06:00 117 H 20 129/79 93 L 10/29/22 05:00 109 H 16 125/82 93 L 10/29/22 04:00 98.1 F 112 H 21 130/76 94 L 10/29/22 03:00 112 H 21 133/77 94 L 10/29/22 02:00 116 H 24 133/81 93 L 10/29/22 01:00 111 H 22 126/78 92 L 10/29/22 00:31 117 H 22 126/78 93 L 10/29/22 00:00 103 H 19 126/78 94 L 10/28/22 23:16 112 H 24 10/28/22 23:04 111 H 16 131/81 95 10/28/22 22:35 98.2 F 108 H 13 119/76 94 L 10/28/22 21:31 112 H 10/28/22 20:32 98.2 F 140 H 20 155/82 96 Intake and Output 10/28/22 10/29/22 10/29/22 22:59 06:59 14:59 Intake Total 1252.486 300 Output Total 1050 Balance 202.486 300 Intake: IV 1050 300 D5-0.45% NaCl with KCl 1050 300 20Meq/l 1,000 ml @ 150 mls/hr IV .[id number] ADRIANNA Rx# :[id number] Intake, IV Titration 202.486 Amount D5-0.45% NaCl with KCl 150 20Meq/l 1,000 ml @ 150 mls/hr IV .Q6H40M ADRIANNA Rx# :[id number] Insulin Regular 100 unit 52.486 In Sodium Chloride 0.9% 100 ml @ 0.1 UNITS/KG/HR 7.33 mls/hr IV .[id number] ADRIANNA Rx#:[id number] Output: Urine 1050 Other: Voiding Method Bedside Commode Bedside Commode Urinal Urinal Weight 72.575 kg 71.5 kg Physical Exam: Revealed 41-year-old white male in no distress, currently resting comfortably in bed on room and oxygen. Hemodynamically stable. Head: Atraumatic normocephalic HEENT:[Neck is supple.] [No neck masses.] [No thyromegaly.] [No JVD.] Chest: [Clear throughout, no crackles, no rhonchi, no wheezes.] Cardiac Exam: [Normal S1 and S2, no S3 gallop, no murmur.] Abdomen: [Soft, nontender, no megaly, no rebound, no guarding, normal bowel sounds.] Extremities: [No clubbing, no edema, no cyanosis.] Neurological Exam: [No focal neurologic deficit.] Alert oriented 3 Psychiatric: Normal mood affect and normal status examination. Examination of the skin revealed no evidence of significant rashes, suspicious appearing nevi or other concerning lesions. Results - Laboratory Findings CBC and BMP: 10/29/22 07:06 10/29/22 07:06 PT/INR, D-dimer PT 9.7 sec (9.0-12.0) 10/28/22 20:47 INR 0.9 (<1.2) 10/28/22 20:47 Abnormal lab findings: Abnormal Labs 10/28/22 10/28/22 10/28/22 20:31 20:46 20:47 WBC 14.1 H Neutrophils # 12.3 H Potassium Carbon Dioxide Glucose POC Glucose (mg/dL) 342 H 316 H Plasma Lactic Acid Bruno Total Bilirubin ALT Alkaline Phosphatase Total Protein Albumin 10/28/22 10/28/22 10/28/22 21:19 21:19 22:42 WBC Neutrophils # Potassium 5.3 H Carbon Dioxide <5 L* Glucose 338 H POC Glucose (mg/dL) 284 H Plasma Lactic Acid Bruno 9.3 H* Total Bilirubin 2.0 H ALT 51 H Alkaline Phosphatase 127 H Total Protein 8.5 H Albumin 5.8 H 10/28/22 10/28/22 10/28/22 23:15 23:57 23:57 WBC Neutrophils # Potassium 6.7 H* Carbon Dioxide 9 L* Glucose 317 H POC Glucose (mg/dL) 275 H Plasma Lactic Acid Bruno 4.9 H* Total Bilirubin ALT Alkaline Phosphatase Total Protein Albumin 10/29/22 10/29/22 10/29/22 00:27 01:58 02:51 WBC Neutrophils # Potassium Carbon Dioxide Glucose POC Glucose (mg/dL) 279 H 243 H 218 H Plasma Lactic Acid Bruno Total Bilirubin ALT Alkaline Phosphatase Total Protein Albumin 10/29/22 10/29/22 10/29/22 03:31 04:06 05:01 WBC Neutrophils # Potassium Carbon Dioxide Glucose 208 H POC Glucose (mg/dL) 187 H 165 H Plasma Lactic Acid Bruno Total Bilirubin ALT Alkaline Phosphatase Total Protein Albumin 10/29/22 08:01 WBC Neutrophils # Potassium Carbon Dioxide Glucose POC Glucose (mg/dL) 125 H Plasma Lactic Acid Bruno Total Bilirubin ALT Alkaline Phosphatase Total Protein Albumin Assessment and Plan Plan: DKA, presented with and I get metabolic acidosis and hyperglycemia, treated accordingly and the patient is currently off the insulin drip, anion gap has been closed. Electrolytes are stable. The patient is noncompliant and is having recurrent episodes of DKA. Acute hyperkalemia secondary to above, improved Acute hyperglycemia secondary to above, improved History of alcoholism with acute alcohol intoxication Previous hospitalizations for DKA Type 1 diabetes mellitus, poorly controlled blood sugar with elevated HbA1c Peripheral neuropathy secondary diabetes mellitus Previous history of DVT Previous history of seizures from alcohol withdrawal Previous history of pancreatitis, lipase level is essentially within normal limits. Plan IV fluids to be cut down to 75 mL an hour Provide the patient a card consistent diet. The patient is able to tolerate his diet, the patient will be started Levemir insulin insulin, we'll start him on 20 units a day along with a sliding scale coverage Monitor blood sugars Check a hemoglobin A1c Watch for any signs of alcohol withdrawal The patient is currently on the C1 protocol Restart Protonix 40 mg by mouth daily Restart thiamine 100 mg by mouth daily Trazodone overnight at 50 mg Tylenol as needed for pain Should be able to transfer out of the intensive care unit
[2022-10-29] MEDS ORDERED: ACETAMINOPHEN TAB 325 MG TAB PO PRN (10:11)
[2022-10-29] MEDS ORDERED: D5-0.45% NACL WITH KCL 20MEQ/L 1,000 ML IV SCH ×2 (10:15→14:00)
[2022-10-29] MEDS ORDERED: DEXTROSE 50% SYRINGE 50 ML IVP PRN ×2 (10:17)
[2022-10-29 10:19] LABS: Glucose,Whole Blood 321 mg/dL (70-110)
[2022-10-29 11:01] VITALS: BMI 22.6
[2022-10-29] MEDS: INSULIN DETEMIR (LEVEMIR) 100 UNIT/ML SYR SQ SCH (11:03)
[2022-10-29 12:01] LABS: Glucose,Whole Blood 382 mg/dL (70-110)
[2022-10-29] MEDS: INSULIN ASPART (NovoLOG) 100 UNIT/ML VIAL SQ SCH ×3 (12:30→21:10)
[2022-10-29] MEDS: D5W WITH KCL 20 MEQ/L 1,000 ML IV SCH (14:15)
[2022-10-29 15:16] LABS: Glucose,Whole Blood 148 mg/dL (70-110)
[2022-10-29 16:23] LABS: Glucose,Whole Blood 93 mg/dL (70-110)
[2022-10-29] MEDS: PANTOPRAZOLE 40 MG TABLET PO SCH (17:40)
--- NOTE | 2022-10-29 19:19 | HP ---
HISTORY AND PHYSICAL ICU Note HISTORY OF PRESENT ILLNESS: This 42-year-old white male came with diabetic ketoacidosis, admitted to the ICU for DKA with previous history of pancreatic pseudocyst and pancreatitis, alcohol intoxication. He also has a history of cocaine use in the past. His hemoglobin A1c is elevated at 10.5. Liver enzymes are normal. Total bilirubin is 2.0. Alcohol level was 90. Acetone was positive in the urine. Started on DKA protocol, is in ICU at this time, was on insulin drip. Sodium level is 139, potassium 4.0, highest potassium 6.7. Chronic abdominal pain secondary to pancreatitis, medicines have been adjusted for that. REVIEW OF SYSTEMS: A 14-point review of systems, weakness, fatigue, nausea, vomiting, abdominal pain as mentioned above. PAST MEDICAL HISTORY: Polysubstance abuse, GERD, diabetes mellitus type 2 and type 1 both may be. SOCIAL HISTORY: He resides with his girlfriend, lives next door to his father, has a glucometer. Stopped taking his antianxiety medicines 2 months ago. Current everyday smoker, is a vaper, heavy alcohol abuse, he drinks half a gallon per day of vodka. FAMILY HISTORY: Father with diabetes mellitus. Mother, schizophrenia. HOME MEDICINES: 1. Lantus 25 units daily. 2. Humalog a.c. t.i.d. 3. Thiamine vitamins 100 daily. 4. Folic acid 0.4 daily. 5. Trazodone 50 at night. 6. Protonix 40 mg a.c. b.i.d. ALLERGIES: Negative. PHYSICAL EXAMINATION: VITAL SIGNS: Pulse is in the low 100s to 140, respiratory rate 18 to 20, blood pressure is 114 to 130s over 70s and 80s, and O2 94 to 96. CARDIOVASCULAR: S1, S2. LUNGS: Clear. GI: Soft. HEMATOLOGY: Negative for Homans. PSYCH: Fair mood and affect. GI: Some mild tenderness to palpation, diffuse abdomen. INTEGUMENT: Dry skin turgor. PSYCH: Giving appropriate answers. Labs reviewed. Field Administrative Assistant notes were reviewed. He has DKA, metabolic acidosis, hyperglycemia, acute hyperglycemia secondary to above, alcohol intoxication, previous DKAs, type 1 diabetes mellitus, peripheral neuropathy, history of pancreatic pseudocyst. Prognosis guarded. Pain control, DKA protocol. A1c elevated at 10.5. He will have to increase his insulin at home. GI prophylaxis with Protonix, thiamine for multivitamins, trazodone for depression. Prognosis guarded. MMODL / IJN: [id number] /
[2022-10-29 20:49] LABS: Glucose,Whole Blood 202 mg/dL (70-110)
[2022-10-29] MEDS: traZODone HCL 50 MG TAB PO SCH (21:11)
[2022-10-30] MEDS: HYDROmorphone 0.5 MG/0.5 ML SYRINGE IVP PRN ×5 (02:05→20:46)
[2022-10-30] MEDS: LORazepam 2 MG/ML INJ IV PRN ×6 (02:05→22:51)
[2022-10-30] MEDS: D5W WITH KCL 20 MEQ/L 1,000 ML IV SCH (02:10)
[2022-10-30 06:25] LABS: Glucose,Whole Blood 194 mg/dL (70-110)
[2022-10-30] MEDS: INSULIN ASPART (NovoLOG) 100 UNIT/ML VIAL SQ SCH ×4 (06:43→20:52)
[2022-10-30] MEDS: THIAMINE 100 MG TAB PO SCH (07:55)
[2022-10-30] MEDS: PANTOPRAZOLE 40 MG TABLET PO SCH ×2 (07:55→17:11)
[2022-10-30] MEDS: INSULIN DETEMIR (LEVEMIR) 100 UNIT/ML SYR SQ SCH (07:56)
[2022-10-30 08:57] LABS: Basophils # (A) 0.02 X 10*3/uL (0.00-0.10); Basophils % (A) 0.6 %; Eosinophils # (A) 0.11 X 10*3/uL (0.04-0.35); Eosinophils % (A) 3.1 %; HGB 13.5 g/dL (13.0-17.0); Immature Grans, Automated 0.3 %; Lymphocytes # (A) 1.27 X 10*3/uL (0.90-5.00); Lymphocytes % (A) 35.4 %; MCH 31.5 pg (27.0-32.0); MCHC 33.8 g/dL (32.0-37.0); MCV 93.5 fL (80.0-97.0); Mean Platelet Volume 11.1 fL (9.5-12.2); Monocytes # (A) 0.28 X 10*3/uL (0.20-1.00); Monocytes % (A) 7.8 %; NRBC Per 100 WBC 0 /100 WBCS (0.0-0.0); Neutrophils % (A) 52.8 %; Platelet Count 145 X 10*3/uL (140-440); RBC 4.28 X 10*6/uL (4.40-5.60); RDW 13.4 % (11.5-14.5); WBC 3.59 X 10*3/uL (4.50-10.00)
[2022-10-30 09:32] LABS: African American GFR (CKD) 124.5 (60.0-200.0); Albumin 4.1 g/dL (3.8-4.9); Albumin/Globulin Ratio 2.73 (1.60-3.17); Anion Gap 10.6 mmol/L (10.00-18.00); BUN/Creat Ratio 15.89 Ratio (12.00-20.00); Calcium 9.3 mg/dL (8.7-10.3); Carbon Dioxide 26.6 mmol/L (20.0-27.5); Globulin 1.5 g/dL (1.6-3.3); Non-African American GFR(CKD) 107.4 (60.0-200.0); Potassium 4.4 mmol/L (3.5-5.5); Total Bilirubin 2.7 mg/dL (0.30-1.20); Total Protein 5.6 g/dL (6.2-8.2)
--- NOTE | 2022-10-30 11:06 | P.PN ---
Subjective Progress Note Date: 10/30/222022, no new complaints, the patient's anion gap is closed. The bicarb is a 26 with a gap of 10 and the sodium is 139. Morning blood sugar was 98. The patient has been losing count of 3.5 with a hemoglobin 15.5. The patient was given Levemir insulin at a dose of 20 units daily. Doesn't take Lantus insulin at home. Objective - Vital Signs Vital signs: Vital Signs Temp 97.5 F L 10/30/22 07:29 Pulse 93 10/30/22 08:52 Resp 18 10/30/22 08:52 BP 126/80 10/30/22 07:29 Pulse Ox 98 10/30/22 07:29 FiO2 Intake & Output 10/29/22 10/30/22 10/30/22 18:59 06:59 18:59 Intake Total 300 200 Balance 300 200 Weight 71.5 kg Intake: IV 300 D5-0.45% NaCl with KCl 300 20Meq/l 1,000 ml @ 50 mls /hr IV .Q20H [facility] Rx#: [id number] Oral 200 Other: Voiding Method Bedside Commode Bedside Commode Urinal Urinal # Voids 1 1 2 - Exam The patient appeared well nourished and normally developed. Vital signs as documented. Head exam is unremarkable. No scleral icterus or corneal arcus noted. Neck is without jugular venous distension, thyromegaly, or carotid bruits. Carotid upstrokes are brisk bilaterally. Lungs are clear to auscultation and percussion. Cardiac exam reveals the PMI to be normally sized and situated. Rhythm is regular. First and second heart sounds normal. No murmurs, rubs or gallops. Abdominal exam reveals normal bowel sounds, no masses, no organomegaly and no aortic enlargement. Extremities are nonedematous and both femoral and pedal pulses are normal. - Labs CBC & Chem 7: 10/30/22 06:12 10/30/22 06:12 Labs: Abnormal Lab Results - Last 24 Hours (Table) 10/29/22 10/29/22 10/29/22 Range/Units 07:06 11:59 15:14 WBC (4.50-10.00) X 10*3/uL RBC (4.40-5.60) X 10*6/uL Glucose (70-110) mg/dL POC Glucose (mg/dL) 382 H 148 H (70-110) mg/dL Hemoglobin A1c 10.5 H (0.0-6.0) % Total Bilirubin (0.30-1.20) mg/dL AST (14-35) U/L Total Protein (6.2-8.2) g/dL Globulin (1.6-3.3) g/dL 10/29/22 10/30/22 10/30/22 Range/Units 20:48 06:12 06:12 WBC 3.59 L (4.50-10.00) X 10*3/uL RBC 4.28 L (4.40-5.60) X 10*6/uL Glucose 198 H (70-110) mg/dL POC Glucose (mg/dL) 202 H (70-110) mg/dL Hemoglobin A1c (0.0-6.0) % Total Bilirubin 2.70 H (0.30-1.20) mg/dL AST 60 H (14-35) U/L Total Protein 5.6 L (6.2-8.2) g/dL Globulin 1.5 L (1.6-3.3) g/dL 10/30/22 Range/Units 06:24 WBC (4.50-10.00) X 10*3/uL RBC (4.40-5.60) X 10*6/uL Glucose (70-110) mg/dL POC Glucose (mg/dL) 194 H (70-110) mg/dL Hemoglobin A1c (0.0-6.0) % Total Bilirubin (0.30-1.20) mg/dL AST (14-35) U/L Total Protein (6.2-8.2) g/dL Globulin (1.6-3.3) g/dL Assessment and Plan Plan: DKA, presented with and I get metabolic acidosis and hyperglycemia, treated accordingly and the patient is currently off the insulin drip, anion gap has been closed. Electrolytes are stable. The patient is noncompliant and is having recurrent episodes of DKA. Acute hyperkalemia secondary to above, improved Acute hyperglycemia secondary to above, improved History of alcoholism with acute alcohol intoxication Previous hospitalizations for DKA Type 1 diabetes mellitus, poorly controlled blood sugar with elevated HbA1c Peripheral neuropathy secondary diabetes mellitus Previous history of DVT Previous history of seizures from alcohol withdrawal Previous history of pancreatitis, lipase level is essentially within normal limits. Plan Patient was transferred out of the intensive care unit Levemir insulin insulin, we'll start him on 20 units a day along with a sliding scale coverage Monitor blood sugars
[2022-10-30 11:22] LABS: Glucose,Whole Blood 213 mg/dL (70-110)
[2022-10-30 16:21] LABS: Glucose,Whole Blood 194 mg/dL (70-110)
[2022-10-30] MEDS: traZODone HCL 50 MG TAB PO SCH (20:46)
[2022-10-30 20:51] LABS: Glucose,Whole Blood 217 mg/dL (70-110)
[2022-10-31] MEDS: HYDROmorphone 0.5 MG/0.5 ML SYRINGE IVP PRN ×5 (00:36→20:59)
[2022-10-31] MEDS: D5W WITH KCL 20 MEQ/L 1,000 ML IV SCH (01:03)
[2022-10-31 06:36] LABS: Glucose,Whole Blood 263 mg/dL (70-110)
[2022-10-31] MEDS: INSULIN ASPART (NovoLOG) 100 UNIT/ML VIAL SQ SCH ×4 (06:44→20:53)
[2022-10-31] MEDS: INSULIN DETEMIR (LEVEMIR) 100 UNIT/ML SYR SQ SCH (06:44)
[2022-10-31] MEDS: PANTOPRAZOLE 40 MG TABLET PO SCH ×2 (06:44→17:13)
[2022-10-31] MEDS: LORazepam 2 MG/ML INJ IV PRN ×5 (06:53→22:32)
[2022-10-31] MEDS: THIAMINE 100 MG TAB PO SCH (08:24)
[2022-10-31 11:25] LABS: Glucose,Whole Blood 161 mg/dL (70-110)
--- NOTE | 2022-10-31 12:30 | P.PN ---
Subjective Progress Note Date: 10/31/22 On 10/31/2022, the patient is doing well. Feeling weak. For the most part, he is on long-acting insulin and his on Levemir insulin 20 units daily and is also using the sliding scale insulin coverage. He is on room air oxygen. Mental status is completely back to normal. No nausea or vomiting. No abdominal pain. No chest pain. Objective - Vital Signs Vital signs: Vital Signs Temp 98.3 F 10/31/22 07:37 Pulse 84 10/31/22 07:37 Resp 18 10/31/22 10:21 BP 127/80 10/31/22 07:37 Pulse Ox 99 10/31/22 07:37 FiO2 Intake & Output 10/30/22 10/31/22 10/31/22 17:59 06:59 18:59 Intake Total 180 Balance 180 Intake: Oral 180 Other: Voiding Method Toilet # Voids - Exam The patient appeared well nourished and normally developed. Vital signs as documented. Head exam is unremarkable. No scleral icterus or corneal arcus noted. Neck is without jugular venous distension, thyromegaly, or carotid bruits. Carotid upstrokes are brisk bilaterally. Lungs are clear to auscultation and percussion. Cardiac exam reveals the PMI to be normally sized and situated. Rhythm is regular. First and second heart sounds normal. No murmurs, rubs or gallops. Abdominal exam reveals normal bowel sounds, no masses, no organomegaly and no aortic enlargement. Extremities are nonedematous and both femoral and pedal pulses are normal. - Labs CBC & Chem 7: 10/30/22 06:12 10/30/22 06:12 Labs: Abnormal Lab Results - Last 24 Hours (Table) 10/30/22 10/30/22 10/31/22 Range/Units 16:20 20:48 06:34 POC Glucose (mg/dL) 194 H 217 H 263 H (70-110) mg/dL 10/31/22 Range/Units : POC Glucose (mg/dL) 161 H (70-110) mg/dL Assessment and Plan Plan: DKA, presented with and I get metabolic acidosis and hyperglycemia, treated accordingly and the patient is currently off the insulin drip, anion gap has been closed. Electrolytes are stable. The patient is noncompliant and is hav ing recurrent episodes of DKA. Acute hyperkalemia secondary to above, improved Acute hyperglycemia secondary to above, improved History of alcoholism with acute alcohol intoxication Previous hospitalizations for DKA Type 1 diabetes mellitus, poorly controlled blood sugar with elevated HbA1c Peripheral neuropathy secondary diabetes mellitus Previous history of DVT Previous history of seizures from alcohol withdrawal Previous history of pancreatitis, lipase level is essentially within normal limits. Plan Back to baseline Continue Levemir Discharge planning is in progress Pulmonary and critical care services will sign off
[2022-10-31 16:29] LABS: Glucose,Whole Blood 156 mg/dL (70-110)
[2022-10-31 20:21] LABS: Glucose,Whole Blood 299 mg/dL (70-110)
[2022-10-31] MEDS: traZODone HCL 50 MG TAB PO SCH (20:53)
--- NOTE | 2022-10-31 20:58 | PN ---
PROGRESS NOTE SUBJECTIVE: A 42-year-old white male, remains on NovoLog before meals and at bedtime, Levemir, Ativan, magnesium, Narcan, Protonix, potassium replacement, thiamine. He is on CIWA protocol, status post DKA in the ICU. OBJECTIVE: VITAL SIGNS: Temp 98, sat 99% on room air, blood pressure 115/81, pulse 90s, respiratory rate 16 to 18. GI: Mild increased tenderness. CARDIOVASCULAR: S1, S2. LUNGS: Clear. PSYCH: Fair mood and affect. ASSESSMENT: [facility] protocol for alcohol withdrawal, status post diabetic ketoacidosis, type 1 diabetes mellitus. Prognosis guarded. Follow up as an outpatient. MMODL / IJN: [id number] /
[2022-11-01] MEDS: D5W WITH KCL 20 MEQ/L 1,000 ML IV SCH (04:30)
[2022-11-01] MEDS: HYDROmorphone 0.5 MG/0.5 ML SYRINGE IVP PRN ×5 (05:06→20:39)
[2022-11-01 05:55] LABS: Glucose,Whole Blood 253 mg/dL (70-110)
[2022-11-01] MEDS: INSULIN DETEMIR (LEVEMIR) 100 UNIT/ML SYR SQ SCH (06:17)
[2022-11-01] MEDS: INSULIN ASPART (NovoLOG) 100 UNIT/ML VIAL SQ SCH ×4 (06:17→20:49)
[2022-11-01] MEDS: PANTOPRAZOLE 40 MG TABLET PO SCH ×2 (06:18→16:38)
[2022-11-01] MEDS: THIAMINE 100 MG TAB PO SCH (08:37)
[2022-11-01 09:28] LABS: African American GFR (CKD) 129.5 (60.0-200.0); Albumin 4.3 g/dL (3.8-4.9); Albumin/Globulin Ratio 2.53 (1.60-3.17); Anion Gap 14.6 mmol/L (10.00-18.00); BUN/Creat Ratio 16.5 Ratio (12.00-20.00); Blood Urea Nitrogen 13.2 mg/dL (9.0-27.0); Calcium 9.1 mg/dL (8.7-10.3); Carbon Dioxide 20.4 mmol/L (20.0-27.5); Globulin 1.7 g/dL (1.6-3.3); Non-African American GFR(CKD) 111.7 (60.0-200.0); Potassium 4.2 mmol/L (3.5-5.5); Total Bilirubin 2.1 mg/dL (0.30-1.20)
[2022-11-01 09:35] LABS: Basophils # (A) 0.01 X 10*3/uL (0.00-0.10); Basophils % (A) 0.3 %; Eosinophils # (A) 0.12 X 10*3/uL (0.04-0.35); Eosinophils % (A) 3.4 %; HCT 43.2 % (39.6-50.0); HGB 14.5 g/dL (13.0-17.0); Immature Grans, Automated 0.3 %; Lymphocytes # (A) 1.12 X 10*3/uL (0.90-5.00); Lymphocytes % (A) 31.8 %; MCH 31.7 pg (27.0-32.0); MCHC 33.6 g/dL (32.0-37.0); MCV 94.5 fL (80.0-97.0); Mean Platelet Volume 11.7 fL (9.5-12.2); Monocytes # (A) 0.21 X 10*3/uL (0.20-1.00); NRBC Per 100 WBC 0 /100 WBCS (0.0-0.0); Neutrophils # (A) 2.05 X 10*3/uL (1.80-7.70); Neutrophils % (A) 58.2 %; Platelet Count 146 X 10*3/uL (140-440); RBC 4.57 X 10*6/uL (4.40-5.60); RDW 12.8 % (11.5-14.5); WBC 3.52 X 10*3/uL (4.50-10.00)
[2022-11-01] MEDS: LORazepam 2 MG/ML INJ IV PRN ×4 (10:39→22:12)
[2022-11-01 11:22] LABS: Glucose,Whole Blood 160 mg/dL (70-110)
[2022-11-01 16:19] LABS: Glucose,Whole Blood 269 mg/dL (70-110)
[2022-11-01 20:50] LABS: Glucose,Whole Blood 135 mg/dL (70-110)
--- NOTE | 2022-11-01 21:05 | PN ---
PROGRESS NOTE SUBJECTIVE: A 42-year-old white male, who states he is feeling better. He is set to go to rehab at [facility] on Tuesday. OBJECTIVE: VITAL SIGNS: Currently, his blood pressure is 119/81, O2 is 98%, temperature 98.3, pulse 92, respiratory rate 16 to 18. CARDIOVASCULAR: S1 and S2. LUNGS: Clear. GI: Soft. LABORATORY DATA: Sugars in mid 200s. ASSESSMENT AND PLAN: Status post diabetic ketoacidosis, alcohol withdrawal, and elevated liver enzymes. The patient wants no medicines for alcohol withdrawal. He wants to get to [facility]. Does not want any depression medicines either. He says he can quit alcohol on his own. We will check labs in the morning and possibly send him home in the next 24 to 48 hours to go to [facility]. MARYCRUZ / OWENN: [id number] /
[2022-11-01] MEDS: traZODone HCL 50 MG TAB PO SCH (21:22)
[2022-11-02] MEDS: HYDROmorphone 0.5 MG/0.5 ML SYRINGE IVP PRN ×2 (04:48→09:58)
[2022-11-02 06:07] LABS: Glucose,Whole Blood 252 mg/dL (70-110)
[2022-11-02] MEDS: LORazepam 2 MG/ML INJ IV PRN ×2 (08:48→20:29)
[2022-11-02] MEDS: INSULIN ASPART (NovoLOG) 100 UNIT/ML VIAL SQ SCH ×4 (08:49→21:26)
[2022-11-02] MEDS: THIAMINE 100 MG TAB PO SCH (08:49)
[2022-11-02] MEDS: INSULIN DETEMIR (LEVEMIR) 100 UNIT/ML SYR SQ SCH (08:49)
[2022-11-02] MEDS: PANTOPRAZOLE 40 MG TABLET PO SCH ×2 (08:49→17:46)
[2022-11-02 09:14] LABS: Basophils # (A) 0.02 X 10*3/uL (0.00-0.10); Basophils % (A) 0.7 %; Eosinophils # (A) 0.08 X 10*3/uL (0.04-0.35); Eosinophils % (A) 2.8 %; HCT 43.3 % (39.6-50.0); HGB 14.1 g/dL (13.0-17.0); Immature Grans, Automated 0 %; Lymphocytes % (A) 34.5 %; MCH 30.8 pg (27.0-32.0); MCHC 32.6 g/dL (32.0-37.0); MCV 94.5 fL (80.0-97.0); Mean Platelet Volume 11.3 fL (9.5-12.2); Monocytes # (A) 0.25 X 10*3/uL (0.20-1.00); Monocytes % (A) 8.6 %; NRBC Per 100 WBC 0 /100 WBCS (0.0-0.0); Neutrophils # (A) 1.55 X 10*3/uL (1.80-7.70); Neutrophils % (A) 53.4 %; Platelet Count 124 X 10*3/uL (140-440); RBC 4.58 X 10*6/uL (4.40-5.60); RDW 12.6 % (11.5-14.5)
[2022-11-02 09:34] LABS: African American GFR (CKD) 123.4 (60.0-200.0); Albumin 4.3 g/dL (3.8-4.9); Albumin/Globulin Ratio 2.53 (1.60-3.17); BUN/Creat Ratio 16.22 Ratio (12.00-20.00); Blood Urea Nitrogen 14.6 mg/dL (9.0-27.0); Calcium 9.4 mg/dL (8.7-10.3); Globulin 1.7 g/dL (1.6-3.3); Non-African American GFR(CKD) 106.5 (60.0-200.0); Potassium 4.8 mmol/L (3.5-5.5); Total Bilirubin 1.6 mg/dL (0.30-1.20)
[2022-11-02 11:17] LABS: Glucose,Whole Blood 214 mg/dL (70-110)
[2022-11-02] MEDS: HYDROcodone/APAP 5-325MG 1 EACH TAB PO PRN ×2 (16:25→22:36)
[2022-11-02 16:37] LABS: Glucose,Whole Blood 291 mg/dL (70-110)
[2022-11-02 20:10] VITALS: TEMP 97.9
[2022-11-02 20:24] LABS: Glucose,Whole Blood 176 mg/dL (70-110)
[2022-11-02] MEDS: traZODone HCL 50 MG TAB PO SCH (21:26)
--- NOTE | 2022-11-02 22:15 | PN ---
PROGRESS NOTE SUBJECTIVE: This is a 42-year-old white male, on CIWA protocol, set up to go to [place] tomorrow from where he is going to be discharged. OBJECTIVE: VITAL SIGNS: Temp 98, blood pressure 117/77, pulse 95, and O2 99 on room air. CARDIOVASCULAR: S1, S2. LUNGS: Clear. GI: Soft. Sugars have been mid 200s. Has no considerable tremors at this time. Labs are reviewed. He has thrombocytopenia 124 and leukopenia, most likely secondary to viral infection versus alcohol suppression. Sugars mid 200s to 100s. Liver enzymes elevated secondary to alcohol. Continue CIWA protocol. Discharge home in the morning to [place]. MMODL / IJN: [id number] /
[2022-11-03 02:17] VITALS: BP 130/73; PULSE 83; RESP 18
[2022-11-03 06:22] LABS: Glucose,Whole Blood 306 mg/dL (70-110)
== END 2022-11-03 07:06 | DRG 420 ==
LOC: EC 20:23 → 2SICU 22:12 → 4SSUR 10-29 15:35
PROVIDERS: ADMIT Family Medicine; ATTEND Family Medicine
DX: E10.10 Type 1 diabetes mellitus with ketoacidosis without coma (principal); F10.229 Alcohol dependence with intoxication, unspecified; F10.239 Alcohol dependence with withdrawal, unspecified; E87.5 Hyperkalemia; Z71.3 Dietary counseling and surveillance; Z28.310 Unvaccinated for COVID-19; Z28.21 Immunization not carried out because of patient refusal; Z86.718 Personal history of other venous thrombosis and embolism; Z83.3 Family history of diabetes mellitus; Y90.4 Blood alcohol level of 80-99 mg/100 ml; Z79.4 Long term (current) use of insulin; K21.9 Gastro-esophageal reflux disease without esophagitis
CPT/HCPCS: 36415; 80048; 80051; 80053; 80320; 82009; 82565; 82947; 83036; 83605; 83690; 83735; 84100; 84520; 85025; 85610; 85730; 93005; 96361; 96372; 96374; 96375; 99291